=== PATIENT | female | born 1955 | race African-American/Black ===

== ENCOUNTER → 2016-08-09 | Outpatient (CLI) | payer BC, MEDICARE ==
[2015-05-29 11:16] VITALS: BP 150/57
[~2016-08-09] MED LIST: AMLO10TA4 PO; ATOR40TA59 PO; CALC0.5C PO; CLON0.2T PO; FOLI0.8T21 PO; GLYB2.5T2 PO; LISI40TA PO; METO-269 PO; OXYC-327 PO; OXYC-328 PO; SENN1TAB70 PO; SITA50TA PO; SODI650T PO; WARF5TAB7 PO
--- NOTE | 2016-08-09 14:21 | KCIC ---
HIP RIGHT 2 VIEW, HIP LEFT 2 VIEW History: Chronic left hip pain, chronic right hip pain Comparison: None. Findings: Right hip: 2 views of the right hip are submitted. No acute fracture or dislocation is identified. Femoral head morphology is preserved. Hip joint space is adequate. There is vascular calcification. There is mild osteophyte formation of the acetabulum. Left hip: 2 views of the left hip are submitted. No acute fracture or dislocation is identified. Left femoral head morphology is preserved. Left hip joint space is adequate. There is vascular calcification. Impression: 1. There is mild osteoarthritic change of the right hip. No acute fracture is identified. 2. There is prominent vascular calcification. Electronically signed by: Saul Bajwa MD (08/09/2016 2:18 PM)
== END | disposition home or self-care (01) ==
LOC: KCIC 09:54
PROVIDERS: ATTEND Family Medicine
DX: M16.11 Unilateral primary osteoarthritis, right hip (principal); M25.552 Pain in left hip
CPT/HCPCS: 73502

== ENCOUNTER 2016-08-20 23:27 | Emergency (ER) | payer BC, MEDICARE ==
[~2016-08-20] VITALS: Ht 162.6 cm; Wt 131.5 kg
[2016-08-20 23:36] VITALS: BP 165/80
[2016-08-21] MEDS ORDERED: CYCL5TAB PO (00:03)
--- NOTE | 2016-08-21 00:03 | PHYS DOC ---
Past Medical History Past Medical History: Diabetes-Type II, High Cholesterol, Hypertension, Renal Disease, Renal Failure, Other Additional Past Medical Histor: HYPOGLYCEMIA Past Surgical History: Other Additional Past Surgical Histo: peritoneal diaylsis; hemodialysis in left upper arm Alcohol Use: Rarely Drug Use: None Adult General Chief Complaint Chief Complaint: MUSCLE SPASM/CRAMP HPI HPI Patient is a 61 year old female presents to the emergency department stating that 2 days ago she woke up with left-sided neck pain and discomfort. She states that she has having increased pain with trying to turn her head to either direction left or right or up or down. Patient denies any lightheadedness dizziness she denies any chest pain or shortness of air. She denies any other muscle cramps or discomfort. Patient does state she is a dialysis patient. She states she did have dialysis today in which she went the entire time. Review of Systems Review of Systems Constitutional: Denies fever or chills [] Eyes: Denies change in visual acuity, redness, or eye pain [] HENT: Denies nasal congestion or sore throat [] Respiratory: Denies cough or shortness of breath [] Cardiovascular: No additional information not addressed in HPI [] GI: Denies abdominal pain, nausea, vomiting, bloody stools or diarrhea [] : Denies dysuria or hematuria [] Musculoskeletal: Complaining of left neck pain and upper back pain denies joint pain Integument: Denies rash or skin lesions [] Neurologic: Denies headache, focal weakness or sensory changes [] Endocrine: Denies polyuria or polydipsia [] Allergies Allergies Allergies Coded Allergies Type Severity Reaction Last Updated Verified Iodine and Iodide Containing Produc Allergy Severe swells up & itches 05/29/15 Yes shellfish derived Allergy Intermediate "SEAFOOD" 05/29/15 Yes Physical Exam Physical Exam Constitutional: Well developed, well nourished, no acute distress, non-toxic appearance. [] HENT: Normocephalic, atraumatic, bilateral external ears normal, oropharynx moist, no oral exudates, nose normal. [] Eyes: PERRLA, EOMI, conjunctiva normal, no discharge. [] Neck: Normal range of motion, no tenderness, supple, no stridor. [] Cardiovascular:Heart rate regular rhythm, no murmur [] Lungs & Thorax: Bilateral breath sounds clear to auscultation [] Skin: Warm, dry, no erythema, no rash. [] Back: No cervical spine tenderness, no crepitus no deformities no step-offs noted. Patient was tender on the left side of the neck and left upper back area of the shoulder area. Extremities: No tenderness, no cyanosis, no clubbing, ROM intact, no edema. Bilateral upper extremities with equal strength in vp customer development noted. Bilateral pulses equal 2+ cap refill. Patient with decreased range of motion of the neck. Neurologic: Alert and oriented X 3, normal motor function, normal sensory function, no focal deficits noted. [] Psychologic: Affect normal, judgement normal, mood normal. [] Current Patient Data Vital Signs Vital Signs Date Time Temp Pulse Resp B/P (MAP) Pulse Ox O2 Delivery O2 Flow Rate FiO2 08/20/16 23:36 98.2 69 18 96 Room Air 98.2 EKG EKG [] Radiology/Procedures Radiology/Procedures [] Course & Med Decision Making Course & Med Decision Making Pertinent Labs and Imaging studies reviewed. (See chart for details) Patient will be discharged home with Flexeril which she was instructed will cause drowsiness do not take any be alert and oriented. Patient was also encouraged to use Tylenol for pain and discomfort. Ice packs on 20 minutes off 20 minutes several times a day. If she is unable to tolerate ice she may use warm moist packs. Patient was provided with signs and symptoms to return back to emergency department. Patient agrees with discharge instructions treatment regimens and follow-up recommendations. [] Dragon Disclaimer Dragon Disclaimer This electronic medical record was generated, in whole or in part, using a voice recognition dictation system. Departure Departure Impression: Primary Impression: Torticollis, acute Disposition: 01 HOME, SELF-CARE Condition: STABLE Referrals: YAIMA HIGHTOWER MD (PCP) Patient Instructions: Torticollis, Acute Additional Instructions: Activity as tolerated Continue with her Tylenol for pain and discomfort. Flexeril for muscle spasms this medication will cause drowsiness do not take any be alert and oriented. Ice packs on 20 minutes off 20 minutes several times a day. If he cannot tolerate ice to your upper back and neck area he may use warm moist heat. Follow-up to primary care physician next 5-7 days. Return back to emergency prior signs symptoms of become worse. Scripts Cyclobenzaprine Hcl (CYCLOBENZAPRINE HCL) 5 Mg Tablet 1 TAB PO TID Y for MUSCLE SPASMS, #30 TAB Prov: FIDE LEMON APRN 08/21/16 FIDE LEMON APRN Aug 21, 2016 00:03
[2016-08-21] MEDS ORDERED: CYCLOBENZAPRINE 10 MG TABLET. PO ONE (00:30)
== END 2016-08-21 00:40 | disposition home or self-care (01) ==
LOC: ER 23:27
DX: M43.6 Torticollis (principal); E78.00 Pure hypercholesterolemia, unspecified; I12.9 Hypertensive chronic kidney disease with stage 1 through stage 4 chronic kidney disease, or unspecified chronic kidney disease; E11.649 Type 2 diabetes mellitus with hypoglycemia without coma; E11.22 Type 2 diabetes mellitus with diabetic chronic kidney disease; N18.9 Chronic kidney disease, unspecified; Z79.4 Long term (current) use of insulin
CPT/HCPCS: 99283

== ENCOUNTER → 2017-04-04 | Outpatient (CLI) | payer BC | END | disposition home or self-care (01) | LOC: KCIC MRI 13:43 | DX: M47.896 Other spondylosis, lumbar region (principal); M48.061 Spinal stenosis, lumbar region without neurogenic claudication; M48.07 Spinal stenosis, lumbosacral region; R60.0 Localized edema | CPT/HCPCS: 72148 ==

== ENCOUNTER → 2017-05-02 | Outpatient (CLI) | payer SELFPAY, BC | END | disposition home or self-care (01) | LOC: PNCL 08:59 | DX: M17.0 Bilateral primary osteoarthritis of knee (principal); I10 Essential (primary) hypertension; E11.9 Type 2 diabetes mellitus without complications; E78.00 Pure hypercholesterolemia, unspecified | CPT/HCPCS: 99213 ==

== ENCOUNTER → 2017-06-04 | Outpatient (CLI) | payer BC ==
[~2017-06-04] MED LIST changes: -AMLO10TA4 PO; -ATOR40TA59 PO; -CALC0.5C PO; -CLON0.2T PO; -FOLI0.8T21 PO; -GLYB2.5T2 PO; +IOHEXOL 180 MG/ML 10 ML VIAL.; -LISI40TA PO; -METO-269 PO; -OXYC-327 PO; -OXYC-328 PO; -SENN1TAB70 PO; -SITA50TA PO; -SODI650T PO; -WARF5TAB7 PO; +methylPREDNISolone ACETATE 40 MG/ML VIAL.; +methylPREDNISolone ACETATE 80 MG/ML VIAL.
== END | disposition home or self-care (01) ==
LOC: PNCL 10:05
DX: M51.16 Intervertebral disc disorders with radiculopathy, lumbar region (principal)
CPT/HCPCS: 62323; J1030; J1040; Q9965

== ENCOUNTER → 2017-06-18 | Outpatient (CLI) | payer BC | END | disposition home or self-care (01) | LOC: PNCL 10:14 | DX: M51.16 Intervertebral disc disorders with radiculopathy, lumbar region (principal) | CPT/HCPCS: 99212 ==

== ENCOUNTER → 2017-07-02 | Outpatient (CLI) | payer BC ==
[~2017-07-02] MED LIST changes: -methylPREDNISolone ACETATE 80 MG/ML VIAL.
== END ==
LOC: PNCL 08:59
DX: M51.16 Intervertebral disc disorders with radiculopathy, lumbar region (principal)
CPT/HCPCS: 62323; J1030; Q9965

== ENCOUNTER → 2017-07-14 | Outpatient (CLI) | payer BC | END | disposition home or self-care (01) | LOC: PNCL 10:08 | DX: M51.16 Intervertebral disc disorders with radiculopathy, lumbar region (principal); I12.0 Hypertensive chronic kidney disease with stage 5 chronic kidney disease or end stage renal disease; E11.22 Type 2 diabetes mellitus with diabetic chronic kidney disease; N18.5 Chronic kidney disease, stage 5 | CPT/HCPCS: 99212 ==

== ENCOUNTER → 2017-09-08 | Outpatient (CLI) | payer BC ==
[~2017-09-08] MED LIST changes: -IOHEXOL 180 MG/ML 10 ML VIAL.; +LIDOCAINE 1% PF 2 ML VIAL.; +methylPREDNISolone ACETATE 80 MG/ML VIAL.
== END | disposition home or self-care (01) ==
LOC: PNCL 10:00
DX: M51.16 Intervertebral disc disorders with radiculopathy, lumbar region (principal); I12.0 Hypertensive chronic kidney disease with stage 5 chronic kidney disease or end stage renal disease; E11.22 Type 2 diabetes mellitus with diabetic chronic kidney disease; N18.6 End stage renal disease; Z79.01 Long term (current) use of anticoagulants; E78.00 Pure hypercholesterolemia, unspecified; Z86.718 Personal history of other venous thrombosis and embolism; Z86.711 Personal history of pulmonary embolism; E66.9 Obesity, unspecified; Z99.2 Dependence on renal dialysis; M19.90 Unspecified osteoarthritis, unspecified site; F17.200 Nicotine dependence, unspecified, uncomplicated; Z80.0 Family history of malignant neoplasm of digestive organs; Z91.013 Allergy to seafood; Z88.8 Allergy status to other drugs, medicaments and biological substances; Z98.890 Other specified postprocedural states; Z79.84 Long term (current) use of oral hypoglycemic drugs
CPT/HCPCS: 62323; J1030; J1040

== ENCOUNTER → 2017-11-07 | Outpatient (CLI) | payer BC ==
[~2017-11-07] MED LIST changes: +AMLO10TA4 PO; +ATOR40TA59 PO; +CALC0.5C8 PO; +CLON0.2T PO; +CYCL5TAB PO; +FOLI0.8T21 PO; +GLYB2.5T2 PO; +HYDR-2758 PO; -LIDOCAINE 1% PF 2 ML VIAL.; +LIDOCAINE 2% PF 2ML VIAL. ONE; +LINA5TAB4 PO; +LISI-130 PO; +METO-269 PO; +OXYC-327 PO; +OXYC-328 PO; +SENN1TAB70 PO; +SITA50TA PO; +SODI650T PO; +WARF-31 PO; -methylPREDNISolone ACETATE 40 MG/ML VIAL.; +methylPREDNISolone ACETATE 40 MG/ML VIAL. ONE; -methylPREDNISolone ACETATE 80 MG/ML VIAL.; +methylPREDNISolone ACETATE 80 MG/ML VIAL. ONE
--- NOTE | 2017-11-07 12:32 | PAIN ---
DATE OF SERVICE: 11/07/2017 DIAGNOSES: Lumbar radiculopathy with lumbar degenerative disk disease. HISTORY OF PRESENT ILLNESS: The patient is a 62-year-old female who returns for followup status post lumbar epidural steroid injection, most recently 09/08/2017. The patient did very well with this with about a 70-75% improvement in the low back and right lower extremity pain. The patient reports she is having some pain in the left side now and in the low back as well with some burning and tingling sensation to dull aching pain in the low back. The patient reports it is radiating to the lower extremities, slightly more noticeable on the left side, mostly posterolateral thigh, lateral anterior thigh, but also on the right. The patient reports it is a 9 on a scale of 10 at its worse, 8 on average, 7 at its least, described as tingling, burning, shooting, aching, radiating to the lower extremities as noted. The patient reports no loss of motor function, no new bowel or bladder incontinence or other complaints. She has been sleeping well at night, does not awaken her from sleep very often, but over the last few days it has. The patient reports no new changes. No new complaints. PHYSICAL EXAMINATION: VITAL SIGNS: Today, the patient's blood pressure is 125/14, pulse 71, respirations 18, temperature 98.7 degrees Fahrenheit, weight is 293 pounds. GENERAL: She is awake, alert, oriented, appropriate, very pleasant demeanor. HEENT: Head shows normocephalic, atraumatic. Extraocular movements are intact, symmetrical. Oral cavity: Mucous membranes moist and pink. Dentition intact. NECK: Shows anterior throat supple without palpable lymphadenopathy noted. Swallow reflex is symmetrical. CHEST: Shows normal with inspection. Breath sounds are clear to auscultation bilaterally. HEART: Shows S1, S2 clear. No murmurs auscultated. ABDOMEN: Soft, nontender, nondistended. No palpable organomegaly. No rebound or guarding demonstrated. BACK: Shows spine grossly in the midline. Normal appearing thoracic kyphosis and minor flattening of lumbar lordotic curvature. Lumbar paraspinous muscle shows symmetrical on inspection, with palpation shows some moderate tenderness only diffusely without radiation. EXTREMITIES: The patient's lower extremities show deep tendon reflexes at 1+ in the patellar and tendo calcaneus tendons are equal. Motor exam is approximately 4 on a scale of 5, but symmetrical with dorsiflexion, extension, quadriceps and hamstring flexion. Peripheral pulses are 1+ posterior tibia. No peripheral edema is noted bilaterally. Options were discussed with the patient. The patient's old chart was reviewed, as her current medication regimen updated. Current review of systems updated today as well. We will proceed with a lumbar epidural steroid injection, first in this series with fluoroscopic guidance. Risks were again discussed including, but not limited to bleeding, infection, possibility of epidural hematoma, subsequent neurologic compromise, dural puncture, headaches, spinal cord and/or nerve damage, side effects of steroid medication and poor results regarding pain control. The patient understands and wished to proceed. The patient will return to clinic in approximately 2 weeks for followup, was counseled on return appointment, activity level and side effects to be aware of. DIAGNOSES: Lumbar radiculopathy with lumbar degenerative disk disease. PROCEDURE: Lumbar epidural steroid injection, translaminar approach L4-L5 level using C-arm fluoroscopic guidance under sterile prep and drape using local anesthetic. MEDICATION INJECTED: A total of 120 mg Depo-Medrol, plus 10 mL of preservative-free normal saline and 2 mL of Isovue for contrast. CONDITION AT DISCHARGE: Stable. The patient tolerated procedure well, had no complications. TRACEE BHATTI MD DR: SUSAN/prabha JOB#: [id number] / [id number]
== END | disposition home or self-care (01) ==
LOC: PNCL 08:07
PROVIDERS: ATTEND Anesthesiology
DX: M51.16 Intervertebral disc disorders with radiculopathy, lumbar region (principal); Z91.013 Allergy to seafood; Z88.8 Allergy status to other drugs, medicaments and biological substances
CPT/HCPCS: 62323; J1030; J1040; J2001

== ENCOUNTER → 2017-12-10 | Outpatient (CLI) | payer BC ==
[~2017-12-10] MED LIST changes: -LIDOCAINE 2% PF 2ML VIAL. ONE; -methylPREDNISolone ACETATE 40 MG/ML VIAL. ONE; -methylPREDNISolone ACETATE 80 MG/ML VIAL. ONE
== END | disposition home or self-care (01) ==
LOC: PMGWOUND 09:17
PROVIDERS: ATTEND Preventive Medicine Undersea and Hyperbaric Medicine
DX: S81.811A Laceration without foreign body, right lower leg, initial encounter (principal); E78.5 Hyperlipidemia, unspecified; Z79.4 Long term (current) use of insulin; E66.9 Obesity, unspecified; Z68.43 Body mass index [BMI] 50.0-59.9, adult; Z87.891 Personal history of nicotine dependence; X58.XXXA Exposure to other specified factors, initial encounter; Y93.89 Activity, other specified; Y92.89 Other specified places as the place of occurrence of the external cause; Y99.8 Other external cause status
CPT/HCPCS: 97597

== ENCOUNTER → 2017-12-17 | Outpatient (CLI) | payer BC | END | disposition home or self-care (01) | LOC: PMGWOUND 09:46 | PROVIDERS: ATTEND Preventive Medicine Undersea and Hyperbaric Medicine | DX: S81.811D Laceration without foreign body, right lower leg, subsequent encounter (principal); I12.9 Hypertensive chronic kidney disease with stage 1 through stage 4 chronic kidney disease, or unspecified chronic kidney disease; N18.9 Chronic kidney disease, unspecified; E78.5 Hyperlipidemia, unspecified; E66.9 Obesity, unspecified; Z68.43 Body mass index [BMI] 50.0-59.9, adult; Z79.4 Long term (current) use of insulin; Z87.891 Personal history of nicotine dependence; X58.XXXD Exposure to other specified factors, subsequent encounter | CPT/HCPCS: 29581 ==

== ENCOUNTER → 2017-12-19 | Outpatient (CLI) | payer BC | END | disposition home or self-care (01) | LOC: PMGWOUND 09:55 | PROVIDERS: ATTEND Preventive Medicine Undersea and Hyperbaric Medicine | DX: S81.811D Laceration without foreign body, right lower leg, subsequent encounter (principal); I12.0 Hypertensive chronic kidney disease with stage 5 chronic kidney disease or end stage renal disease; N18.6 End stage renal disease; E78.5 Hyperlipidemia, unspecified; E66.9 Obesity, unspecified; Z68.43 Body mass index [BMI] 50.0-59.9, adult; Z79.4 Long term (current) use of insulin; Z87.891 Personal history of nicotine dependence; X58.XXXD Exposure to other specified factors, subsequent encounter | CPT/HCPCS: 29581 ==

== ENCOUNTER → 2017-12-31 | Outpatient (CLI) | payer BC | END | disposition home or self-care (01) | LOC: PMGWOUND 08:05 | PROVIDERS: ATTEND Preventive Medicine Undersea and Hyperbaric Medicine | DX: S81.811D Laceration without foreign body, right lower leg, subsequent encounter (principal); E11.51 Type 2 diabetes mellitus with diabetic peripheral angiopathy without gangrene; I13.10 Hypertensive heart and chronic kidney disease without heart failure, with stage 1 through stage 4 chronic kidney disease, or unspecified chronic kidney disease; E11.22 Type 2 diabetes mellitus with diabetic chronic kidney disease; N18.9 Chronic kidney disease, unspecified; E78.5 Hyperlipidemia, unspecified; E66.9 Obesity, unspecified; Z68.43 Body mass index [BMI] 50.0-59.9, adult; Z79.4 Long term (current) use of insulin; Z87.891 Personal history of nicotine dependence; X58.XXXD Exposure to other specified factors, subsequent encounter | CPT/HCPCS: 11100; 93923 ==

== ENCOUNTER → 2018-01-06 | Outpatient (CLI) | payer BC | END | disposition home or self-care (01) | LOC: PMGWOUND 13:14 | PROVIDERS: ATTEND Emergency Medicine Undersea and Hyperbaric Medicine | DX: E11.622 Type 2 diabetes mellitus with other skin ulcer (principal); I87.331 Chronic venous hypertension (idiopathic) with ulcer and inflammation of right lower extremity; L97.212 Non-pressure chronic ulcer of right calf with fat layer exposed; E11.51 Type 2 diabetes mellitus with diabetic peripheral angiopathy without gangrene; I12.0 Hypertensive chronic kidney disease with stage 5 chronic kidney disease or end stage renal disease; E11.22 Type 2 diabetes mellitus with diabetic chronic kidney disease; N18.6 End stage renal disease; E78.5 Hyperlipidemia, unspecified; E66.9 Obesity, unspecified; Z68.43 Body mass index [BMI] 50.0-59.9, adult; Z87.891 Personal history of nicotine dependence; Z79.4 Long term (current) use of insulin | CPT/HCPCS: 99214; G0463 ==

== ENCOUNTER → 2018-01-09 | Outpatient (CLI) | payer BC ==
--- NOTE | 2018-01-09 12:30 | CARD ---
MR#: [id number] Date of Study: 01/09/2018 Ordering Physician: CHERI HERNANDEZ, Referring Physician: CHERI HERNANDEZ, Tech: Juliana Cline TRINA APPROVED REPORT EXAM: Two-dimensional and M-mode echocardiogram with Doppler and color Doppler. Other Information Quality : Technically LimitedHR: 84bpm Rhythm : NSRTechnically limited study due to body habitus. INDICATION Murmur 2D DIMENSIONS RVDd2.1 (2.9-3.5cm)Left Atrium(2D)3.8 (1.6-4.0cm) IVSd1.3 (0.7-1.1cm)Aortic Root(2D)2.8 (2.0-3.7cm) LVDd5.3 (3.9-5.9cm)LVOT Diameter1.8 (1.8-2.4cm) PWd1.2 (0.7-1.1cm)LVDs3.4 (2.5-4.0cm) FS (%) 35.3 %SV87.9 ml LVEF(%)64.2 (>50%) M-Mode DIMENSIONS Left Atrium(MM)4.39 (2.5-4.0cm)Aortic Root3.02 (2.2-3.7cm) Aortic Valve AoV Peak Everardo.394.0cm/sAoV VEY903.6cm AO Peak GR.62.1mmHgLVOT Peak Everardo.87.2cm/s AO Mean GR.45mmHgAVA (VMAX)0.54cm2 ISIDRO (VTI)0.03ck3JB P 1/2 Budl009mq Mitral Valve MV E Rpcqynuy834.2cm/sMV E Peak Gr.7mmHg MV DECEL [id number] A Niamlkfl522.0cm/s MV E Mean Gr.2mmHgE/A Ratio0.8 MV A Kghbvfew09qb Pulmonary Valve PV Peak Qipprkys232.3cm/s Tricuspid Valve TR P. Ursuxsjp613gw/sRAP XZPZCWAZ5evAf TR Peak Gr.20ezBhQJCY16bzNr LEFT VENTRICLE The left ventricle is normal size. There is mild concentric left ventricular hypertrophy. The left ve ntricular systolic function is normal. The Ejection Fraction is 60-65%. There is normal LV segmental wall motion. Transmitral Doppler flow pattern is Grade I-abnormal relaxation pattern. RIGHT VENTRICLE The right ventricle is normal size. There is normal right ventricular wall thickness. The right ventr icular systolic function is normal. ATRIA The left atrium is mildly dilated. The right atrium size is normal. The interatrial septum is intact with no evidence for an atrial septal defect or patent foramen ovale as noted on 2-D or Doppler imagi ng. AORTIC VALVE The aortic valve is severely calcified. The aortic valve is probably trileaflet. Doppler and Color Fl ow revealed trace aortic regurgitation. There is severe valvular aortic stenosis. Calculated aortic v alve area is 0.6 cm2 with maximum pressure gradient of 62 mmHg and mean pressure gradient of 45 mmHg. MITRAL VALVE The mitral valve is moderately thickened. There is no evidence of mitral valve prolapse. There is no mitral valve stenosis. Doppler and Color Flow revealed no mitral valve regurgitation noted. TRICUSPID VALVE The tricuspid valve is normal in structure and function. Doppler and Color Flow revealed mild tricusp id regurgitation. There is moderate pulmonary hypertension. The PA pressure was estimated at 55 mmHg. There is no tricuspid valve prolapse or vegetation. There is no tricuspid valve stenosis. PULMONIC VALVE Pulmonic valve not well visualized. GREAT VESSELS The aortic root is normal in size. The ascending aorta is normal in size. PERICARDIAL EFFUSION There is a trace pericardial effusion. Critical Notification Critical Value: No <Conclusion> The left ventricular systolic function is normal. The Ejection Fraction is 60-65%. There is normal LV segmental wall motion. Transmitral Doppler flow pattern is Grade I-abnormal relaxation pattern. The left atrium is mildly dilated. There is severe valvular aortic stenosis with calculated aortic valve area is 0.6 cm2 and mean pressu re gradient of 45 mmHg. Mild tricuspid regurgitation. There is moderate pulmonary hypertension. The PA pressure was estimated at 55 mmHg. There is a trace pericardial effusion. Signed by : Barrett Miguel, Electronically Approved : 01/09/2018 12:29:25
--- NOTE | 2018-01-12 08:58 | RAD ---
MR#: [id number] Date of Study: 01/09/2018 Ordering Physician: CHERI HERNANDEZ, Referring Physician: CHERI HERNANDEZ, Tech: Juliana Handley RDMS RVT APPROVED REPORT Patient Location: OUT-PATIENT Laterality:Bilateral Indications MURMUR Doppler Spectral Velocity Analysis Right Left mCCA 54/10 cm/smCCA 69/14 cm/s ECA 101/ cm/sECA 58/ cm/s pICA pICA 75/23 cm/s [place] 523/130 cm/smICA 89/26 cm/s dICA 282/35 cm/sdICA 85/21 cm/s ICA/CCA 9.69ICA/CCA 1.30 Findings Grayscale images of the bilateral common carotid, internal and external carotid arteries were obtaine d. There is moderate diffuse plaque bilaterally in the common carotid arteries. On the right there is near critical stenosis of the internal carotid artery at greater than 95% steno sis. There is heavy calcific burden and ultrasound imaging is limited. Nonetheless, by velocity crite mallory there is greater than 70% stenosis. Spectral waveforms in the left internal carotid artery are wi thin normal limits. Normal ICA to CCA ratio is noted on the left side. The ICA to CCA ratio is signif icantly elevated at 9.6 on the right side. Bilateral vertebral velocities are antegrade. Critical Notification Critical Value: Yes Date: 01/09/2018 Time: 11:21 Physician Name:ASAF <Conclusion> 1. Critical right internal carotid artery stenosis. Signed by : Tacho Pedersen, Electronically Approved : 01/12/2018 08:57:40
== END | disposition home or self-care (01) ==
LOC: ECHO 10:02
PROVIDERS: ATTEND Internal Medicine Cardiovascular Disease
DX: I65.21 Occlusion and stenosis of right carotid artery (principal); I08.2 Rheumatic disorders of both aortic and tricuspid valves; I27.20 Pulmonary hypertension, unspecified
CPT/HCPCS: 93306; 93880

== ENCOUNTER → 2018-01-13 | Outpatient (CLI) | payer BC ==
[~2018-01-13] MED LIST changes: +BUDE10.2 IH; +GLIP5TAB10 PO; +SEVE800T9 PO; +SUCR500T PO
== END | disposition home or self-care (01) ==
LOC: PMGWOUND 10:42
PROVIDERS: ATTEND Emergency Medicine Undersea and Hyperbaric Medicine
DX: E11.622 Type 2 diabetes mellitus with other skin ulcer (principal); I87.331 Chronic venous hypertension (idiopathic) with ulcer and inflammation of right lower extremity; L97.212 Non-pressure chronic ulcer of right calf with fat layer exposed; E11.51 Type 2 diabetes mellitus with diabetic peripheral angiopathy without gangrene; I12.0 Hypertensive chronic kidney disease with stage 5 chronic kidney disease or end stage renal disease; E11.22 Type 2 diabetes mellitus with diabetic chronic kidney disease; N18.6 End stage renal disease; E78.5 Hyperlipidemia, unspecified; E66.01 Morbid (severe) obesity due to excess calories; Z68.43 Body mass index [BMI] 50.0-59.9, adult; Z87.891 Personal history of nicotine dependence; Z99.2 Dependence on renal dialysis; Z79.4 Long term (current) use of insulin
CPT/HCPCS: 99214; G0463

== ENCOUNTER 2018-01-19 07:52 | Day surgery (SDC) | payer BC ==
[~2018-01-19 07:52] MED LIST changes: -HYDR-2758 PO; +HYDR-2761 PO; +HYDROmorphone 2 MG/ML VIAL IV PRN; +IV RINGERS,LACTATED 1000ML 1,000 ML IV SCH; +LIDOCAINE 1% PF 2 ML VIAL. ID PRN; +MORPHINE SULFATE 2 MG/ML VIAL. IV PRN; +ONDANSETRON PF 4 MG/2 ML VIAL. IV PRN; -OXYC-327 PO; -OXYC-328 PO; +OXYC1TAB19 PO; +OXYC1TAB22 PO; +PROCHLORPERAZINE 10 MG/2 ML VIAL. IV PRN; +fentaNYL PF VIAL 100 MCG/2 ML VIAL IV PRN
[2018-01-19] MEDS ORDERED: IV NORMAL SALINE 1000ML BAG 1,000 ML IV SCH (08:37)
[2018-01-19] MEDS ORDERED: PROPOFOL 20 ML IV ONE (09:09)
[2018-01-19] MEDS ORDERED: BENZOCAINE ONE 20% MUCOSAL SPRAY. (09:10)
[2018-01-19] MEDS ORDERED: LIDOCAINE 2% VISCOUS 15 ML SOLUTION. ONE (09:11)
[2018-01-19 10:45] VITALS: BP 148/80
--- NOTE | 2018-01-19 14:50 | CARD ---
MR#: [id number] Date of Study: 01/19/2018 Ordering Physician: CHERI SOLOMON, Referring Physician: Julien HENRIQUEZ: Charlene Rea APPROVED REPORT EXAM: Transesophageal echocardiogram with color flow Doppler. INDICATION Aortic Valve Disease RISK FACTORS Hypertension Hyperlipidemia Diabetes Reason For Test : Rule out Intracardiac Thrombus. PROCEDURE Type of Sedation : General Anesthesia Sedation was administered by Dr. Cooper. Sedation was achieved with Propofol 150mg intravenously. Transesophageal probe was inserted and advanced into esophagus by Cheri Solomon MD. The NICHELLE was performed without complications. Throughout the procedure, the blood pressure, pulse oximetry, cardiac rhythm, and rate were monitored . LEFT VENTRICLE The left ventricle is normal size. There is mild to moderate concentric left ventricular hypertrophy. The left ventricular systolic function is normal and the ejection fraction is within normal range. L eft ventricular ejection fraction is 55-60%. There is normal LV segmental wall motion. RIGHT VENTRICLE The right ventricle is normal size. There is normal right ventricular wall thickness. The right ventr icular systolic function is normal. ATRIA The left atrium is borderline dilated. The right atrium size is normal. The interatrial septum is int act with no evidence for an atrial septal defect or patent foramen ovale as noted on 2-D or Doppler i maging. AORTIC VALVE The aortic valve is severely calcified. Doppler and Color Flow revealed mild aortic regurgitation. Th ere is severe valvular aortic stenosis. There is no aortic valvular vegetation. MITRAL VALVE The mitral valve is normal in structure and function. Doppler and Color-flow revealed mild mitral reg urgitation. TRICUSPID VALVE The tricuspid valve is normal in structure and function. Doppler and Color Flow revealed trace tricus pid valve regurgitation. There is no tricuspid valve stenosis. PULMONIC VALVE The pulmonary valve is normal in structure and function. Doppler and Color Flow revealed no pulmonic valvular regurgitation. There is no pulmonic valvular stenosis. GREAT VESSELS The aortic root is normal in size. Critical Notification Critical Value: No <Conclusion> The left ventricle is normal size. The left ventricular systolic function is normal and the ejection fraction is within normal range. Left ventricular ejection fraction is 55-60%. There is mild to moderate concentric left ventricular hypertrophy. The aortic valve is severely calcified. There is severe valvular aortic stenosis. Doppler and Color Flow revealed mild aortic regurgitation. Doppler and Color-flow revealed mild mitral regurgitation. Doppler and Color Flow revealed trace tricuspid valve regurgitation. Signed by : Cheri Solomon MD Electronically Approved : 01/19/2018 14:49:11
== END 2018-01-19 10:45 | disposition home or self-care (01) ==
LOC: SURG 07:52
PROVIDERS: ATTEND Internal Medicine Cardiovascular Disease
DX: I08.3 Combined rheumatic disorders of mitral, aortic and tricuspid valves (principal); I12.9 Hypertensive chronic kidney disease with stage 1 through stage 4 chronic kidney disease, or unspecified chronic kidney disease; E11.22 Type 2 diabetes mellitus with diabetic chronic kidney disease; N18.9 Chronic kidney disease, unspecified; E78.5 Hyperlipidemia, unspecified; J44.9 Chronic obstructive pulmonary disease, unspecified; E66.01 Morbid (severe) obesity due to excess calories; Z68.43 Body mass index [BMI] 50.0-59.9, adult; Z79.84 Long term (current) use of oral hypoglycemic drugs; Z79.899 Other long term (current) drug therapy; Z88.8 Allergy status to other drugs, medicaments and biological substances; Z91.013 Allergy to seafood; Z98.890 Other specified postprocedural states; Z83.3 Family history of diabetes mellitus; Z82.49 Family history of ischemic heart disease and other diseases of the circulatory system; Z87.891 Personal history of nicotine dependence
CPT/HCPCS: 82962; 93312; 93325; A7015; J2704

== ENCOUNTER → 2018-01-20 | Outpatient (CLI) | payer BC ==
[2016-08-20 23:36] VITALS: BP_DIAS 80
[2018-01-19 10:45] VITALS: BP_SYST 148
[~2018-01-20] MED LIST changes: -HYDROmorphone 2 MG/ML VIAL IV PRN; -IV RINGERS,LACTATED 1000ML 1,000 ML IV SCH; -LIDOCAINE 1% PF 2 ML VIAL. ID PRN; -MORPHINE SULFATE 2 MG/ML VIAL. IV PRN; -ONDANSETRON PF 4 MG/2 ML VIAL. IV PRN; -PROCHLORPERAZINE 10 MG/2 ML VIAL. IV PRN; -fentaNYL PF VIAL 100 MCG/2 ML VIAL IV PRN
--- NOTE | 2018-01-20 16:09 | RAD ---
Right lower extremity arterial ultrasound, 01/20/2018: HISTORY: Right ankle wound, nonhealing Duplex evaluation of the major arteries in the right lower extremity was performed including grayscale, color-flow and spectral Doppler analysis. The right common femoral artery demonstrates a triphasic Doppler waveform. There are mild scattered atherosclerotic plaques. The right superficial femoral and popliteal arteries demonstrate biphasic Doppler waveforms. No significant focal velocity acceleration is seen through those regions to suggest high-grade focal stenosis. Patent anterior tibial, posterior tibial and peroneal arteries are present in the right lower leg demonstrating biphasic Doppler waveforms. The right dorsalis pedis artery demonstrates a similar, good amplitude biphasic Doppler waveform. IMPRESSION: Mild scattered atherosclerotic plaquing without duplex evidence of high-grade arterial stenosis. Electronically signed by: Carlton Parsons MD (01/20/2018 4:05 PM) [facility]
== END | disposition home or self-care (01) ==
LOC: PMGWOUND 13:30
PROVIDERS: ATTEND Emergency Medicine Undersea and Hyperbaric Medicine
DX: E11.622 Type 2 diabetes mellitus with other skin ulcer (principal); L97.212 Non-pressure chronic ulcer of right calf with fat layer exposed; I87.021 Postthrombotic syndrome with inflammation of right lower extremity; E11.51 Type 2 diabetes mellitus with diabetic peripheral angiopathy without gangrene; I12.0 Hypertensive chronic kidney disease with stage 5 chronic kidney disease or end stage renal disease; E11.22 Type 2 diabetes mellitus with diabetic chronic kidney disease; N18.6 End stage renal disease; E78.5 Hyperlipidemia, unspecified; E66.01 Morbid (severe) obesity due to excess calories; Z68.43 Body mass index [BMI] 50.0-59.9, adult; Z99.2 Dependence on renal dialysis; Z79.4 Long term (current) use of insulin; Z87.891 Personal history of nicotine dependence
CPT/HCPCS: 93926; 99214; G0463

== ENCOUNTER → 2018-01-21 | Outpatient (CLI) | payer BC ==
[~2018-01-21] VITALS: Ht 162.6 cm; Wt 136.1 kg
[~2018-01-21] MED LIST changes: +HEPARIN for ARTERIAL LINE 0 ML ONE; +IODIXANOL 320 MG/ML 100 ML VIAL. ONE; +LIDOCAINE 1% PF 30 ML VIAL. ONE
[2018-01-21 07:25] VITALS: BP 158/76
[2018-01-21 07:25] LABS: HEMATOCRIT 28.6 % (36.0-47.0); HEMOGLOBIN 9.3 g/dL (12.0-15.5); RED BLOOD COUNT 3.14 x10^6/uL (3.50-5.40); RED CELL DISTRIBUTION WIDTH 17.1 % (11.5-14.5)
[2018-01-21 07:35] LABS: PROTHROMBIN TIME PATIENT 14.6 SEC (11.7-14.0)
[2018-01-21 07:41] LABS: CALCIUM 9.4 mg/dL (8.5-10.1); CREATININE 11.2 mg/dL (0.6-1.0); GFR 4.2; POTASSIUM 4.5 mmol/L (3.5-5.1)
== END | disposition home or self-care (01) ==
LOC: CCL 06:36
PROVIDERS: ATTEND Internal Medicine Cardiovascular Disease
DX: I35.0 Nonrheumatic aortic (valve) stenosis (principal); Z53.8 Procedure and treatment not carried out for other reasons; Z88.8 Allergy status to other drugs, medicaments and biological substances; Z79.01 Long term (current) use of anticoagulants; Z79.899 Other long term (current) drug therapy; Z91.013 Allergy to seafood
CPT/HCPCS: 36415; 80048; 85027; 85610; 85730

== ENCOUNTER → 2018-01-26 | Outpatient (CLI) | payer BC ==
[2018-01-21 07:25] VITALS: BP 158/76
[~2018-01-26] MED LIST changes: +ASPI-630 PO; -HEPARIN for ARTERIAL LINE 0 ML ONE; -IODIXANOL 320 MG/ML 100 ML VIAL. ONE; -LIDOCAINE 1% PF 30 ML VIAL. ONE; +LINA5TAB PO; -LINA5TAB4 PO; +LOSA100T14 PO
== END | disposition home or self-care (01) ==
LOC: PMGWOUND 14:00
PROVIDERS: ATTEND Emergency Medicine Undersea and Hyperbaric Medicine
DX: E11.622 Type 2 diabetes mellitus with other skin ulcer (principal); L97.212 Non-pressure chronic ulcer of right calf with fat layer exposed; I87.021 Postthrombotic syndrome with inflammation of right lower extremity; E11.51 Type 2 diabetes mellitus with diabetic peripheral angiopathy without gangrene; I12.0 Hypertensive chronic kidney disease with stage 5 chronic kidney disease or end stage renal disease; E11.22 Type 2 diabetes mellitus with diabetic chronic kidney disease; N18.6 End stage renal disease; E78.5 Hyperlipidemia, unspecified; J44.9 Chronic obstructive pulmonary disease, unspecified; Z99.2 Dependence on renal dialysis; E66.01 Morbid (severe) obesity due to excess calories; Z79.4 Long term (current) use of insulin; Z68.43 Body mass index [BMI] 50.0-59.9, adult; Z87.891 Personal history of nicotine dependence
CPT/HCPCS: 99214; G0463

== ENCOUNTER 2018-01-29 09:02 | Outpatient (CLI) | payer BC ==
[2018-01-29] VITALS (11 sets, daily range): BP systolic 148–207; BP diastolic 61–88
[~2018-01-29] VITALS: Ht 162.6 cm; Wt 134.3 kg
[~2018-01-29 09:02] MED LIST changes: -ASPI-630 PO; -LOSA100T14 PO
[2018-01-29 09:39] LABS: HEMATOCRIT 28.8 % (36.0-47.0); HEMOGLOBIN 9.3 g/dL (12.0-15.5); RED BLOOD COUNT 3.2 x10^6/uL (3.50-5.40); RED CELL DISTRIBUTION WIDTH 16.8 % (11.5-14.5); WHITE BLOOD COUNT 13.6 x10^3/uL (4.0-11.0)
[2018-01-29 09:49] LABS: PROTHROMBIN TIME PATIENT 13.8 SEC (11.7-14.0)
[2018-01-29 09:51] LABS: CALCIUM 9.7 mg/dL (8.5-10.1); CREATININE 5.3 mg/dL (0.6-1.0); GFR 9.9; POTASSIUM 4.3 mmol/L (3.5-5.1)
[2018-01-29] MEDS ORDERED: LIDOCAINE 1% PF 2 ML VIAL. ONE (10:00)
[2018-01-29] MEDS ORDERED: ASPI-630 PO (10:04)
[2018-01-29] MEDS ORDERED: LOSA100T14 PO (10:04)
[2018-01-29] MEDS ORDERED: IODIXANOL 320 MG/ML 100 ML VIAL. ONE (10:27)
[2018-01-29] MEDS ORDERED: FAMOTIDINE 20 MG/2 ML VIAL ONE (10:44)
[2018-01-29] MEDS ORDERED: fentaNYL PF VIAL 100 MCG/2 ML VIAL ONE (10:45)
[2018-01-29] MEDS ORDERED: MIDAZOLAM HCL/PF 2 MG/2 ML VIAL. ONE (10:45)
[2018-01-29] MEDS ORDERED: LABETALOL 20 MG/4 ML DISP.SYRIN. IVP ONE ×3 (10:45→11:15)
[2018-01-29] MEDS ORDERED: diphenhydrAMINE 50 MG/ML VIAL ONE (10:45)
[2018-01-29] MEDS ORDERED: LIDOCAINE 1% Multi-Dose 20 ML VIAL. ONE (10:53)
[2018-01-29] MEDS ORDERED: LIDOCAINE 1% Multi-Dose 20 ML VIAL. INJ ONE (11:15)
[2018-01-29] MEDS ORDERED: fentaNYL PF VIAL 100 MCG/2 ML VIAL IV ONE (11:15)
[2018-01-29] MEDS ORDERED: FAMOTIDINE 20 MG/2 ML VIAL IVP ONE (11:15)
[2018-01-29] MEDS ORDERED: diphenhydrAMINE 50 MG/ML VIAL IVP ONE (11:15)
[2018-01-29] MEDS ORDERED: MIDAZOLAM HCL/PF 2 MG/2 ML VIAL. IV ONE (11:15)
[2018-01-29] MEDS ORDERED: IODIXANOL 320 MG/ML 100 ML VIAL. IART ONE (11:15)
[2018-01-29] MEDS ORDERED: LOSARTAN POTASSIUM 50 MG TABLET. PO ONE (11:45)
[2018-01-29] MEDS ORDERED: amLODIPine BESYLATE 10 MG TABLET PO ONE (11:45)
[2018-01-29] MEDS ORDERED: cloNIDine HCL 0.2 MG TABLET PO ONE (11:45)
--- NOTE | 2018-01-29 11:51 | CARD ---
MR#: [id number] Date of Study: 01/29/2018 Ordering Physician: TALHA RON, Referring Physician: TALHA RON, Tech: RAÚL FERRIS RTR APPROVED REPORT Technologist: RAÚL FERRIS RTR Nurse: JOSIE REYNA RN Procedure(s) performed: MODERATE SEDATION TIME: 25 MINUTES Coronary angiography HISTORY The patient is a 62 year-old female with a history of : renal failure with dialysis. INDICATION The indication(s) include : valvular heart disease. PROCEDURE NARRATIVE After explaining the risks and benefits of the procedure and alternatives, informed consent was obtai benedict. The patient was brought electively to the cardiac catheterization lab in a fasting state. A megan eout was performed confirming the patient's name, date of , procedure, and site of procedure. A ll necessary personnel were wearing the appropriate protective equipment and radiation monitor device s. (See nursing notes for medications administered). The right groin was sterilely prepped and drap ed in the usual fashion. The right groin was infiltrated with 10 mL of 2% lidocaine for subcutaneous anesthesia. A 6 F sheath was inserted into the right femoral artery without difficulty. Right and left coronary angiography was performed using a JR4 and JL4 catheter. All catheter exchanges and adv ancements were performed over a guidewire. At case completion the right femoral sheath was removed a nd hemostasis was achieved with an Angioseal Device after limited femoral angiography confirmed adequ ate vessel size and anatomy. There were no acute complications. HEMODYNAMICS: AO: 180/90 CORONARY ANGIOGRAPHY: LM is a large caliber vessel with normal angiographic appearance. LAD is a large caliber vessel with adventitial calcification and apical occlusion. The LAD is hyperdo minant and wraps around the apex and the apical/inferoapical segment is seen to fill via right to lef t collaterals. LCx is a moderate caliber non-dominant vessel with mild luminal irregularities. OM1 is a moderate caliber vessel with mild luminal irregularities. RCA is a small caliber dominant vessel with a mid 50% stenosis. Conclusion 1. Two vessel coronary artery disease in non-bypassable segments. Recommendations Aggressive Medical Therapy Signed by : Talha Ron, Electronically Approved : 01/29/2018 11:50:28
== END 2018-01-29 15:00 | disposition home or self-care (01) ==
LOC: CCL 09:02
PROVIDERS: ATTEND Internal Medicine Cardiovascular Disease
DX: I25.10 Atherosclerotic heart disease of native coronary artery without angina pectoris (principal); I25.82 Chronic total occlusion of coronary artery; I12.9 Hypertensive chronic kidney disease with stage 1 through stage 4 chronic kidney disease, or unspecified chronic kidney disease; E11.22 Type 2 diabetes mellitus with diabetic chronic kidney disease; N18.9 Chronic kidney disease, unspecified; E78.5 Hyperlipidemia, unspecified; J44.9 Chronic obstructive pulmonary disease, unspecified; E66.01 Morbid (severe) obesity due to excess calories; Z68.43 Body mass index [BMI] 50.0-59.9, adult; Z91.013 Allergy to seafood; Z88.8 Allergy status to other drugs, medicaments and biological substances; Z79.899 Other long term (current) drug therapy; Z98.890 Other specified postprocedural states; Z82.49 Family history of ischemic heart disease and other diseases of the circulatory system; Z83.3 Family history of diabetes mellitus; Z87.891 Personal history of nicotine dependence; I35.0 Nonrheumatic aortic (valve) stenosis; Z99.2 Dependence on renal dialysis; Z79.84 Long term (current) use of oral hypoglycemic drugs
CPT/HCPCS: 36415; 80048; 85027; 85610; 93454; 99152; 99153; C1769; C1892; J1200; J1644; J2250; J3010; J3490; Q9967; C1771; G0269

== ENCOUNTER → 2018-02-02 | Outpatient (CLI) | payer BC ==
[2018-01-29 14:20] VITALS: BP 148/61
[~2018-02-02] MED LIST changes: +ASPI-630 PO; +LOSA100T14 PO
== END | disposition home or self-care (01) ==
LOC: PMGWOUND 13:21
PROVIDERS: ATTEND Emergency Medicine Undersea and Hyperbaric Medicine
DX: E11.622 Type 2 diabetes mellitus with other skin ulcer (principal); L97.212 Non-pressure chronic ulcer of right calf with fat layer exposed; I87.021 Postthrombotic syndrome with inflammation of right lower extremity; I12.0 Hypertensive chronic kidney disease with stage 5 chronic kidney disease or end stage renal disease; E11.22 Type 2 diabetes mellitus with diabetic chronic kidney disease; N18.5 Chronic kidney disease, stage 5; E11.51 Type 2 diabetes mellitus with diabetic peripheral angiopathy without gangrene; E78.5 Hyperlipidemia, unspecified; J44.9 Chronic obstructive pulmonary disease, unspecified; I25.10 Atherosclerotic heart disease of native coronary artery without angina pectoris; E66.01 Morbid (severe) obesity due to excess calories; Z79.4 Long term (current) use of insulin; Z68.43 Body mass index [BMI] 50.0-59.9, adult; Z99.2 Dependence on renal dialysis; Z87.891 Personal history of nicotine dependence
CPT/HCPCS: 99214; G0463

== ENCOUNTER → 2018-02-09 | Outpatient (CLI) | payer BC ==
[2018-01-29 14:20] VITALS: BP 148/61
== END | disposition home or self-care (01) ==
LOC: PMGWOUND 13:22
PROVIDERS: ATTEND Emergency Medicine Undersea and Hyperbaric Medicine
DX: E11.622 Type 2 diabetes mellitus with other skin ulcer (principal); L97.212 Non-pressure chronic ulcer of right calf with fat layer exposed; I87.021 Postthrombotic syndrome with inflammation of right lower extremity; E11.51 Type 2 diabetes mellitus with diabetic peripheral angiopathy without gangrene; I13.11 Hypertensive heart and chronic kidney disease without heart failure, with stage 5 chronic kidney disease, or end stage renal disease; N18.6 End stage renal disease; E11.22 Type 2 diabetes mellitus with diabetic chronic kidney disease; E78.5 Hyperlipidemia, unspecified; J44.9 Chronic obstructive pulmonary disease, unspecified; I25.10 Atherosclerotic heart disease of native coronary artery without angina pectoris; E66.01 Morbid (severe) obesity due to excess calories; Z68.43 Body mass index [BMI] 50.0-59.9, adult; Z87.891 Personal history of nicotine dependence; Z79.4 Long term (current) use of insulin; Z99.2 Dependence on renal dialysis
CPT/HCPCS: 97597

== ENCOUNTER → 2018-02-23 | Outpatient (CLI) | payer BC ==
[2018-01-29 14:20] VITALS: BP_DIAS 61
[2018-02-18 11:00] VITALS: BP_SYST 124
[~2018-02-23] VITALS: Ht 167.6 cm; Wt 134.3 kg
--- NOTE | 2018-02-25 15:15 | RAD ---
DATE: 02/23/2018 11:45 AM EXAM: DIGITAL DIAGNOSTIC BILATERAL, BREAST LEFT HISTORY: imaging evaluation of a palpable area of concern within the left breast COMPARISON: None available Bilateral CC and MLO views of the breasts were performed. Bilateral breast tomosynthesis was performed in CC and MLO projections. In addition spot compression views were performed in the region of palpable abnormality. This study was interpreted with the benefit of Computerized Aided Detection (CAD ). Breast Density: The breast parenchyma shows scattered fibroglandular densities. Breast parenchyma level B. FINDINGS: Of note, exam is limited given limitations in patient positioning given recent surgery. Dense vascular calcifications are seen. A marker is seen overlying the left breast denoting site of palpable abnormality. No definite subjacent breast mass is identified. Diffuse left breast skin thickening is also seen. No suspicious masses, microcalcifications or architectural distortion is present to suggest malignancy in either breast. The visualized axillae are unremarkable. Therefore ultrasound was performed in the region of palpable abnormality. ULTRASOUND FINDINGS: Targeted ultrasound of the patient detected area of concern was performed. Grayscale and color Doppler sonographic evaluation was performed in the region of palpable abnormality. Dense breast tissue seen in this region with associated fatty tissue. No discrete or suspicious mass is identified in the region of possible abnormality. There is diffuse subcutaneous edema and skin thickening in the left breast centered in the retroareolar region. IMPRESSION: No mammographic or sonographic evidence of malignancy. Diffuse left breast skin thickening with edema in conjunction with pain may represent mastitis. BI-RADS CATEGORY: 2 BENIGN FINDING(S) RECOMMENDED FOLLOW-UP: 3M 3 MONTH FOLLOW-UP. Recommend clinical management of the left breast pain, which may represent mastitis. The palpable abnormality may in part related to the diffuse soft tissue edema and thickening however repeat sonographic imaging in the region of palpable abnormality in 3 months following clinical management is recommended. PQRS compliance statement: Patient information was entered into a reminder system with a target due date 05/24/2018 for the next ultrasound. Mammography is a sensitive method for finding small breast cancers, but it does not detect them all and is not a substitute for careful clinical examination. A negative mammogram does not negate a clinically suspicious finding and should not result in delay in biopsying a clinically suspicious abnormality. "Our facility is accredited by the [employer] Mammography Program." MTDD
== END | disposition home or self-care (01) ==
LOC: MAMMO 09:30
PROVIDERS: ATTEND Family Medicine
DX: R92.8 Other abnormal and inconclusive findings on diagnostic imaging of breast (principal)
CPT/HCPCS: 76641; 77066

== ENCOUNTER → 2018-02-27 | Outpatient (CLI) | payer BC ==
[2018-02-18 11:00] VITALS: BP 124/61
== END | disposition home or self-care (01) ==
LOC: PMGWOUND 11:22
PROVIDERS: ATTEND Preventive Medicine Undersea and Hyperbaric Medicine
DX: L97.212 Non-pressure chronic ulcer of right calf with fat layer exposed (principal); I87.021 Postthrombotic syndrome with inflammation of right lower extremity; I13.11 Hypertensive heart and chronic kidney disease without heart failure, with stage 5 chronic kidney disease, or end stage renal disease; E11.22 Type 2 diabetes mellitus with diabetic chronic kidney disease; N18.6 End stage renal disease; E11.51 Type 2 diabetes mellitus with diabetic peripheral angiopathy without gangrene; E21.3 Hyperparathyroidism, unspecified; E78.5 Hyperlipidemia, unspecified; J44.9 Chronic obstructive pulmonary disease, unspecified; I25.10 Atherosclerotic heart disease of native coronary artery without angina pectoris; E66.01 Morbid (severe) obesity due to excess calories; Z68.43 Body mass index [BMI] 50.0-59.9, adult; Z79.4 Long term (current) use of insulin; Z99.2 Dependence on renal dialysis; Z87.891 Personal history of nicotine dependence
CPT/HCPCS: 97597

== ENCOUNTER → 2018-03-20 | Outpatient (CLI) | payer BC ==
[2018-03-02 07:00] VITALS: BP 147/66
== END | disposition home or self-care (01) ==
LOC: PMGWOUND 09:00
PROVIDERS: ATTEND Preventive Medicine Undersea and Hyperbaric Medicine
DX: E11.622 Type 2 diabetes mellitus with other skin ulcer (principal); L97.212 Non-pressure chronic ulcer of right calf with fat layer exposed; I87.021 Postthrombotic syndrome with inflammation of right lower extremity; E11.51 Type 2 diabetes mellitus with diabetic peripheral angiopathy without gangrene; I13.11 Hypertensive heart and chronic kidney disease without heart failure, with stage 5 chronic kidney disease, or end stage renal disease; E11.22 Type 2 diabetes mellitus with diabetic chronic kidney disease; N18.6 End stage renal disease; E11.21 Type 2 diabetes mellitus with diabetic nephropathy; E78.5 Hyperlipidemia, unspecified; E78.00 Pure hypercholesterolemia, unspecified; E03.9 Hypothyroidism, unspecified; I25.10 Atherosclerotic heart disease of native coronary artery without angina pectoris; E66.01 Morbid (severe) obesity due to excess calories; Z68.43 Body mass index [BMI] 50.0-59.9, adult; Z99.2 Dependence on renal dialysis; Z79.4 Long term (current) use of insulin; Z87.891 Personal history of nicotine dependence
CPT/HCPCS: 99214; G0463

== ENCOUNTER → 2018-04-01 | Outpatient (CLI) | payer BC ==
[2018-03-02 07:00] VITALS: BP 147/66
== END | disposition home or self-care (01) ==
LOC: PMGWOUND 09:59
PROVIDERS: ATTEND Preventive Medicine Undersea and Hyperbaric Medicine
DX: E11.622 Type 2 diabetes mellitus with other skin ulcer (principal); L97.212 Non-pressure chronic ulcer of right calf with fat layer exposed; I87.021 Postthrombotic syndrome with inflammation of right lower extremity; I13.11 Hypertensive heart and chronic kidney disease without heart failure, with stage 5 chronic kidney disease, or end stage renal disease; E11.22 Type 2 diabetes mellitus with diabetic chronic kidney disease; N18.6 End stage renal disease; E11.51 Type 2 diabetes mellitus with diabetic peripheral angiopathy without gangrene; E21.3 Hyperparathyroidism, unspecified; E78.5 Hyperlipidemia, unspecified; J44.9 Chronic obstructive pulmonary disease, unspecified; I25.10 Atherosclerotic heart disease of native coronary artery without angina pectoris; E66.01 Morbid (severe) obesity due to excess calories; E11.21 Type 2 diabetes mellitus with diabetic nephropathy; Z87.891 Personal history of nicotine dependence; Z79.82 Long term (current) use of aspirin; Z79.84 Long term (current) use of oral hypoglycemic drugs; Z79.899 Other long term (current) drug therapy; Z88.8 Allergy status to other drugs, medicaments and biological substances; Z91.013 Allergy to seafood; Z79.4 Long term (current) use of insulin; Z99.2 Dependence on renal dialysis; Z68.43 Body mass index [BMI] 50.0-59.9, adult
CPT/HCPCS: 97597

== ENCOUNTER → 2018-04-08 | Outpatient (CLI) | payer BC ==
[2018-03-02 07:00] VITALS: BP 147/66
== END | disposition home or self-care (01) ==
LOC: PMGWOUND 10:06
PROVIDERS: ATTEND Preventive Medicine Undersea and Hyperbaric Medicine
DX: E11.622 Type 2 diabetes mellitus with other skin ulcer (principal); L97.212 Non-pressure chronic ulcer of right calf with fat layer exposed; E11.21 Type 2 diabetes mellitus with diabetic nephropathy; E11.51 Type 2 diabetes mellitus with diabetic peripheral angiopathy without gangrene; I13.11 Hypertensive heart and chronic kidney disease without heart failure, with stage 5 chronic kidney disease, or end stage renal disease; E11.22 Type 2 diabetes mellitus with diabetic chronic kidney disease; N18.6 End stage renal disease; I87.021 Postthrombotic syndrome with inflammation of right lower extremity; E78.5 Hyperlipidemia, unspecified; J44.9 Chronic obstructive pulmonary disease, unspecified; E21.3 Hyperparathyroidism, unspecified; E03.9 Hypothyroidism, unspecified; E78.00 Pure hypercholesterolemia, unspecified; E21.1 Secondary hyperparathyroidism, not elsewhere classified; I25.10 Atherosclerotic heart disease of native coronary artery without angina pectoris; E66.01 Morbid (severe) obesity due to excess calories; Z68.43 Body mass index [BMI] 50.0-59.9, adult; Z99.2 Dependence on renal dialysis; Z79.4 Long term (current) use of insulin; Z87.891 Personal history of nicotine dependence
CPT/HCPCS: 11042

== ENCOUNTER → 2018-04-29 | Outpatient (CLI) | payer BC ==
[2018-03-02 07:00] VITALS: BP 147/66
== END | disposition home or self-care (01) ==
LOC: PMGWOUND 10:10
PROVIDERS: ATTEND Preventive Medicine Undersea and Hyperbaric Medicine
DX: E11.622 Type 2 diabetes mellitus with other skin ulcer (principal); L97.218 Non-pressure chronic ulcer of right calf with other specified severity; I87.021 Postthrombotic syndrome with inflammation of right lower extremity; E11.21 Type 2 diabetes mellitus with diabetic nephropathy; E11.51 Type 2 diabetes mellitus with diabetic peripheral angiopathy without gangrene; I12.0 Hypertensive chronic kidney disease with stage 5 chronic kidney disease or end stage renal disease; E11.22 Type 2 diabetes mellitus with diabetic chronic kidney disease; N18.6 End stage renal disease; E78.5 Hyperlipidemia, unspecified; E03.9 Hypothyroidism, unspecified; E78.00 Pure hypercholesterolemia, unspecified; E21.3 Hyperparathyroidism, unspecified; J44.9 Chronic obstructive pulmonary disease, unspecified; E21.1 Secondary hyperparathyroidism, not elsewhere classified; I25.10 Atherosclerotic heart disease of native coronary artery without angina pectoris; E66.01 Morbid (severe) obesity due to excess calories; Z68.44 Body mass index [BMI] 60.0-69.9, adult; Z79.4 Long term (current) use of insulin; Z79.82 Long term (current) use of aspirin; Z99.2 Dependence on renal dialysis; Z87.891 Personal history of nicotine dependence; Z79.84 Long term (current) use of oral hypoglycemic drugs
CPT/HCPCS: 99213; G0463

== ENCOUNTER → 2018-08-31 | Outpatient (CLI) | payer BC ==
[2018-03-02 07:00] VITALS: BP 147/66
== END | disposition home or self-care (01) ==
LOC: LAB 12:25
PROVIDERS: ATTEND Internal Medicine Nephrology
DX: E11.29 Type 2 diabetes mellitus with other diabetic kidney complication (principal); Z91.041 Radiographic dye allergy status; Z91.013 Allergy to seafood
CPT/HCPCS: 36415; 84132

== ENCOUNTER 2018-10-13 10:38 | Inpatient (IN) | payer MEDICARE, BC ==
[2018-10-13] VITALS (11 sets, daily range): BP systolic 131–192; BP diastolic 50–100
[~2018-10-13] VITALS: Ht 162.6 cm; Wt 111.4 kg
[2018-10-13] MEDS ORDERED: ASPIRIN CHEWABLE 81 MG TABLET. PO ONE (11:00)
--- NOTE | 2018-10-13 11:19 | RAD ---
PORTABLE CHEST 1V Clinical Indication: Chest pain Comparison: AP chest February 28, 2018. Findings: Unchanged moderate cardiomegaly. Patient is post CARLOS. There is mild pulmonary vascular congestion and interstitial edema. No lobar consolidation. There is no pneumothorax. No pleural effusion is appreciated. No acute bone abnormality. IMPRESSION: Unchanged moderate cardiomegaly. Mild CHF or volume overload. Electronically signed by: Angel Bright MD (10/13/2018 11:15 AM) [id number]
[2018-10-13 11:23] LABS: BASO # 0.1 x10^3/uL (0.0-0.2); BASO % 1 % (0-3); EOS # 0.1 x10^3/uL (0.0-0.7); EOS % 1 % (0-3); HEMATOCRIT 31.1 % (36.0-47.0); HEMOGLOBIN 10.2 g/dL (12.0-15.5); LYMPH # 1.4 x10^3/uL (1.0-4.8); LYMPH % 13 % (24-48); MEAN CORPUSCULAR HEMOGLOBIN 28 pg (25-35); MEAN CORPUSCULAR HGB CONC 33 g/dL (31-37); MEAN CORPUSCULAR VOLUME 84 fL (79-100); MONO # 0.9 x10^3/uL (0.0-1.1); MONO % 9 % (0-9); NEUT # 8.2 x10^3/uL (1.8-7.7); NEUT % 77 % (31-73); PLATELET COUNT 215 x10^3/uL (140-400); RED BLOOD COUNT 3.69 x10^6/uL (3.50-5.40); RED CELL DISTRIBUTION WIDTH 19.1 % (11.5-14.5); WHITE BLOOD COUNT 10.7 x10^3/uL (4.0-11.0)
[2018-10-13] MEDS: NITROGLYCERIN SUBLINGUAL 0.4 MG BOTTLE OF 25. SL PRN ×2 (11:31→12:57)
[2018-10-13 11:53] LABS: PROTHROMBIN TIME PATIENT 14.4 SEC (11.7-14.0)
--- NOTE | 2018-10-13 11:59 | EKG ---
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
[2018-10-13 12:03] LABS: CALCIUM 9.7 mg/dL (8.5-10.1); CREATININE 5.8 mg/dL (0.6-1.0); GFR 8.9; POTASSIUM 3.7 mmol/L (3.5-5.1)
[2018-10-13 12:09] LABS: ALBUMIN/GLOBULIN RATIO 0.7 (1.0-1.7); MAGNESIUM 1.8 mg/dL (1.8-2.4); TOTAL BILIRUBIN 0.9 mg/dL (0.2-1.0); TOTAL PROTEIN 7.5 g/dL (6.4-8.2)
--- NOTE | 2018-10-13 12:26 | PHYS DOC ---
Past Medical History Past Medical History: CAD, Diabetes-Type II, High Cholesterol, Hypertension, Renal Disease, Renal Failure, Other Additional Past Medical Histor: HYPOGLYCEMIA,OBESITY, PERITONEAL DIALYSIS Past Surgical History: Other Additional Past Surgical Histo: hemodialysis in left upper arm (NOT IN USE),R CAROTID, R, L ARM GRAFT DIALY Alcohol Use: Rarely Drug Use: None Adult General Chief Complaint Chief Complaint: CHEST PAIN HPI HPI Patient is a 63 year old female who presents by EMS with complaining of chest pain. Patient patient complaining of substernal aching and sharp chest pain that started at 0645 as an intermittent pain with radiation to her back and associated with shortness of breath, dizziness, palpitation and rated her pain 9/10. Patient had finished her dialysis on brought in by EMS because of chest pain. Patient denies any chest pain at arrival to ER. Review of Systems Review of Systems Constitutional: Denies fever or chills [] Eyes: Denies change in visual acuity, redness, or eye pain [] HENT: Denies nasal congestion or sore throat [] Respiratory: Denies cough, reports shortness of breath [] Cardiovascular: No additional information not addressed in HPI [] GI: Denies abdominal pain, nausea, vomiting, bloody stools or diarrhea [] : Denies dysuria or hematuria [] Musculoskeletal: Denies back pain or joint pain [] Integument: Denies rash or skin lesions [] Neurologic: Denies headache, focal weakness or sensory changes [] Endocrine: Denies polyuria or polydipsia [] All other systems were reviewed and found to be within normal limits, except as documented in this note. Current Medications Current Medications Current Medications Medications (Trade) Dose Ordered Sig/Chinmay Start Time Stop Time Status Last Admin Dose Admin Aspirin (Children'S Aspirin) 324 mg 1X ONCE 10/13/18 11:00 10/13/18 11:01 DC 10/13/18 11:31 324 MG Nitroglycerin (Nitrostat) 0.4 mg PRN Q5MIN PRN 10/13/18 11:00 10/13/18 13:04 DC 10/13/18 12:58 0.4 MG Allergies Allergies Allergies Coded Allergies Type Severity Reaction Last Updated Verified Iodine and Iodide Containing Produc Allergy Severe swells up & itches 02/13/18 Yes shellfish derived Allergy Intermediate "SEAFOOD" 02/13/18 Yes Physical Exam Physical Exam Constitutional: Well developed, well nourished, no distress, non-toxic appearance. [] HENT: Normocephalic, atraumatic. Eyes: PERRLA, EOMI, conjunctiva normal, no discharge. [] Neck: Normal range of motion, no tenderness, supple, no stridor. [] Cardiovascular:Heart rate regular rhythm, no murmur [] Lungs & Thorax: Bilateral breath sounds clear to auscultation [] Abdomen: Bowel sounds normal, soft, no tenderness, no masses, no pulsatile masses. [] Skin: Warm, dry, no erythema, no rash. [] Back: No tenderness, no CVA tenderness. [] Extremities: No tenderness, no cyanosis, no clubbing, ROM intact, no edema. [] Neurologic: Alert and oriented X 3, no focal deficits noted. [] Psychologic: Affect normal, judgement normal, mood normal. [] Current Patient Data Vital Signs Vital Signs Date Time Temp Pulse Resp B/P (MAP) Pulse Ox O2 Delivery O2 Flow Rate FiO2 10/13/18 11:45 76 18 198/84 (122) 97 Room Air 10/13/18 11:17 98.7 98.7 Lab Values Laboratory Tests Test 10/13/18 11:10 10/13/18 11:35 White Blood Count 10.7 x10^3/uL (4.0-11.0) Red Blood Count 3.69 x10^6/uL (3.50-5.40) Hemoglobin 10.2 g/dL (12.0-15.5) L Hematocrit 31.1 % (36.0-47.0) L Mean Corpuscular Volume 84 fL (79-100) Mean Corpuscular Hemoglobin 28 pg (25-35) Mean Corpuscular Hemoglobin Concent 33 g/dL (31-37) Red Cell Distribution Width 19.1 % (11.5-14.5) H Platelet Count 215 x10^3/uL (140-400) Neutrophils (%) (Auto) 77 % (31-73) H Lymphocytes (%) (Auto) 13 % (24-48) L Monocytes (%) (Auto) 9 % (0-9) Eosinophils (%) (Auto) 1 % (0-3) Basophils (%) (Auto) 1 % (0-3) Neutrophils # (Auto) 8.2 x10^3/uL (1.8-7.7) H Lymphocytes # (Auto) 1.4 x10^3/uL (1.0-4.8) Monocytes # (Auto) 0.9 x10^3/uL (0.0-1.1) Eosinophils # (Auto) 0.1 x10^3/uL (0.0-0.7) Basophils # (Auto) 0.1 x10^3/uL (0.0-0.2) Prothrombin Time 14.4 SEC (11.7-14.0) H Prothrombin Time INR 1.2 (0.8-1.1) H Sodium Level 142 mmol/L (136-145) Potassium Level 3.7 mmol/L (3.5-5.1) Chloride Level 102 mmol/L (98-107) Carbon Dioxide Level 31 mmol/L (21-32) Anion Gap 9 (6-14) Blood Urea Nitrogen 27 mg/dL (7-20) H Creatinine 5.8 mg/dL (0.6-1.0) H Estimated GFR (Cockcroft-Gault) 8.9 BUN/Creatinine Ratio 5 (6-20) L Glucose Level 100 mg/dL (70-99) H Calcium Level 9.7 mg/dL (8.5-10.1) Magnesium Level 1.8 mg/dL (1.8-2.4) Total Bilirubin 0.9 mg/dL (0.2-1.0) Aspartate Amino Transferase (AST) 16 U/L (15-37) Alanine Aminotransferase (ALT) 11 U/L (14-59) L Alkaline Phosphatase 89 U/L (46-116) Creatine Kinase 46 U/L (26-192) Troponin I Quantitative 0.035 ng/mL (0.000-0.055) JF-Rik-M-Type Natriuretic Peptide > 21711 pg/mL (0-124) H Total Protein 7.5 g/dL (6.4-8.2) Albumin 3.0 g/dL (3.4-5.0) L Albumin/Globulin Ratio 0.7 (1.0-1.7) L Lipase 133 U/L (73-393) Laboratory Tests 10/13/18 11:10 Laboratory Tests 10/13/18 11:35 EKG EKG EKG interpreted by me. EKG at 1045 showed sinus rhythm at rate of 90, left ramos axis, nonspecific intraventricular block, poor R-wave progress in anteroseptal leads, no acute ST and T-wave elevation. 2. EKG at 1253 after starting episodes of chest pain showed normal sinus rhythm at rate of 90, abnormal left axis deviation, nonspecific intraventricular block, ST elevation in anteroseptal leads that was increased compared to previous EKG and code STEMI was activated at 1258. Radiology/Procedures Radiology/Procedures [][facility] [address] [place] [address] IMAGING REPORT Signed PATIENT: ACE GUPTA ACCOUNT: [id number] : 1955 LOCATION: ER AGE: 63 SEX: F EXAM STATUS: REG ER ORD. PHYSICIAN: DIYA COTE MD REASON: chest pain PROCEDURE: PORTABLE CHEST 1V PORTABLE CHEST 1V Clinical Indication: Chest pain Comparison: AP chest February 28, 2018. Findings: Unchanged moderate cardiomegaly. Patient is post CARLOS. There is mild pulmonary vascular congestion and interstitial edema. No lobar consolidation. There is no pneumothorax. No pleural effusion is appreciated. No acute bone abnormality. IMPRESSION: Unchanged moderate cardiomegaly. Mild CHF or volume overload. Electronically signed by: Angel Bright MD (10/13/2018 11:15 AM) [id number] DICTATED and SIGNED BY: ANGEL BRIGHT MD DATE: 10/13/18 1115 Course & Med Decision Making Course & Med Decision Making Pertinent Labs and Imaging studies reviewed. (See chart for details) Evaluation of patient in ER showed 63-year-old female patient with history of chronic renal failure on dialysis brought in by EMS because of chest pain that r esolved at arrival to ER. Patient had normal potassium and cardiac enzymes. Patient had blood sugar of 200 at arrival to ER that gradually decreased to 180s. Patient had heart score 5. Patient requiring admission for further evaluation and treatment. Discussed with Dr. Hatfield who is in agreement with admission. Discussed findings and plan with patient and family, who acknowledge understanding and agreement. 1310: Patient developed another episode of chest pain after walking to the bathroom and rated her pain 10 over 10. EKG showed increase of ST elevation in anteroseptal leads. Code STEMI was activated at [address] Avila to call back at 13 0 today and presented to ER and evaluated the patient and her EKG and recommended to repeat serial troponin and admit patient to ICU. Chest pain resolved after 1 dose of nitroglycerin. Dragon Disclaimer Dragon Disclaimer This electronic medical record was generated, in whole or in part, using a voice recognition dictation system. Departure Departure Impression: Primary Impression: Acute chest pain Additional Impressions: End stage renal disease on dialysis Anemia Disposition: ADMITTED INPATIENT (1203) Admitting Physician: HIMOliva (Dr. Hatfield accepted admission at arrival to) Condition: IMPROVED Referrals: YAIMA HIGHTOWER MD (PCP) The HEART Score for CP Pts HEART Score for Chest Pain: HEART Score for Chest Pain Response (Comments) Value History Moderately Suspicious 1 ECG Nonspecific Repolarizatio 1 Age >45 - < 65 1 Risk Factors >3 Risk Factors or Hx CAD 2 Troponin < Normal Limit 0 Total 5 Risk Factors: Risk Factors: DM, Current or recent (<one month) smoker, HTN, HLP, family history of CAD, obesity. Risk Scores: Score 0 - 3: 2.5% MACE over next 6 weeks - Discharge Home Score 4 - 6: 20.3% MACE over next 6 weeks - Admit for Clinical Observation Score 7 - 10: 72.7% MACE over next 6 weeks - Early Invasive Strategies Critical Care Time Critical care time was 80 minutes exclusive of procedures. Problem Qualifiers Additional Impressions: Anemia Anemia type: unspecified type Qualified Codes: D64.9 - Anemia, unspecified DIYA COTE MD Oct 13, 2018 12:26
[2018-10-13] MEDS ORDERED: IODIXANOL 320 MG/ML 100 ML VIAL. ONE (13:05)
[2018-10-13] MEDS ORDERED: LIDOCAINE 1% Multi-Dose 20 ML VIAL. ONE (13:05)
[2018-10-13] MEDS ORDERED: NITROGLYCERIN SUBLINGUAL 0.4 MG BOTTLE OF 25. SL PRN (13:15)
--- NOTE | 2018-10-13 14:32 | PDOC2 ---
CARDIAC CONSULT DATE OF CONSULT Date of Consult DATE: 10/13/18 TIME: 14:24 REASON FOR CONSULT Reason for Consult: Chest pain SOURCE Source: Chart review, Patient HISTORY OF PRESENT ILLNESS HISTORY OF PRESENT ILLNESS This is a 63 yo female who presented secondary to chest pain while on hemodialysis earlier today. Reports tightness, stabbing pain in her central chest. Associated with diaphoresis ad nausea. No palpitations, dizziness, or shortness of breath. Pain persisted so she was recommended to go to the ED for further evaluation and treatment. Initially code STEMI, but was canceled by Dr. Miguel after further evaluation the of patient and EKG. Pain improved with nitro in ED. No further pain. Does have a history of CAD with known RN HEMODIALYSIS CHARGE of the LAD. PAST MEDICAL HISTORY Cardiovascular: AFIB, CAD, CHF, HTN, Hyperlipidemia, Aortic stenosis (s/p TAVT ) Pulmonary: COPD, Other (XOCHILT) CENTRAL NERVOUS SYSTEM: Periperal neuropathy Heme/Onc: Anemia NOS, Other (DVT ) Musculoskeletal: Osteoarthritis, Other (DDD) Renal/: Chronic renal failure Endocrine: Diabetes PAST SURGICAL HISTORY Past Surgical History: Hernia Repair FAMILY HISTORY Family History: Cancer CURRENT MEDICATIONS CURRENT MEDICATIONS Current Medications Medications (Trade) Dose Ordered Sig/Chinmay Route PRN Reason Start Time Stop Time Status Last Admin Dose Admin Aspirin (Children'S Aspirin) 324 mg 1X ONCE PO 10/13/18 11:00 10/13/18 11:01 DC 10/13/18 11:31 Nitroglycerin (Nitrostat) 0.4 mg PRN Q5MIN PRN SL CP RATING > 1/10 10/13/18 11:00 10/13/18 13:04 DC 10/13/18 12:58 ALLERGIES ALLERGIES: Coded Allergies: Iodine and Iodide Containing Produc (Verified Allergy, Severe, swells up & itches, 02/13/18) shellfish derived (Verified Allergy, Intermediate, "SEAFOOD", 02/13/18) ROS Review of System 14 point ROS conducted with pertinent positives noted above in HPI. PHYSICAL EXAM General: Alert, Oriented X3, Cooperative, No acute distress HEENT: Atraumatic Lungs: Clear to auscultation, Normal air movement Heart: Regular rate, Normal S1, Normal S2, Other (2/6 systolic murmur ) Abdomen: No tenderness, No hepatosplenomegaly Extremities: No edema, Normal pulses Skin: No significant lesion Neuro: Normal speech, Sensation intact Psych/Mental Status: Mental status NL, Mood NL MUSCULOSKELETAL: Osteoarthritic changes both hands VITALS/I&O VITALS/I&O: Vital Signs Date Time Temp Pulse Resp B/P (MAP) Pulse Ox O2 Delivery O2 Flow Rate FiO2 10/13/18 13:45 82 18 168/75 (106) 96 Room Air 10/13/18 11:17 98.7 98.7 LABS Lab: Laboratory Tests Test 10/13/18 11:10 10/13/18 11:35 10/13/18 13:40 White Blood Count 10.7 x10^3/uL (4.0-11.0) Red Blood Count 3.69 x10^6/uL (3.50-5.40) Hemoglobin 10.2 g/dL (12.0-15.5) L Hematocrit 31.1 % (36.0-47.0) L Mean Corpuscular Volume 84 fL (79-100) Mean Corpuscular Hemoglobin 28 pg (25-35) Mean Corpuscular Hemoglobin Concent 33 g/dL (31-37) Red Cell Distribution Width 19.1 % (11.5-14.5) H Platelet Count 215 x10^3/uL (140-400) Neutrophils (%) (Auto) 77 % (31-73) H Lymphocytes (%) (Auto) 13 % (24-48) L Monocytes (%) (Auto) 9 % (0-9) Eosinophils (%) (Auto) 1 % (0-3) Basophils (%) (Auto) 1 % (0-3) Neutrophils # (Auto) 8.2 x10^3/uL (1.8-7.7) H Lymphocytes # (Auto) 1.4 x10^3/uL (1.0-4.8) Monocytes # (Auto) 0.9 x10^3/uL (0.0-1.1) Eosinophils # (Auto) 0.1 x10^3/uL (0.0-0.7) Basophils # (Auto) 0.1 x10^3/uL (0.0-0.2) Prothrombin Time 14.4 SEC (11.7-14.0) H Prothrombin Time INR 1.2 (0.8-1.1) H Sodium Level 142 mmol/L (136-145) Potassium Level 3.7 mmol/L (3.5-5.1) Chloride Level 102 mmol/L (98-107) Carbon Dioxide Level 31 mmol/L (21-32) Anion Gap 9 (6-14) Blood Urea Nitrogen 27 mg/dL (7-20) H Creatinine 5.8 mg/dL (0.6-1.0) H Estimated GFR (Cockcroft-Gault) 8.9 BUN/Creatinine Ratio 5 (6-20) L Glucose Level 100 mg/dL (70-99) H Calcium Level 9.7 mg/dL (8.5-10.1) Magnesium Level 1.8 mg/dL (1.8-2.4) Total Bilirubin 0.9 mg/dL (0.2-1.0) Aspartate Amino Transferase (AST) 16 U/L (15-37) Alanine Aminotransferase (ALT) 11 U/L (14-59) L Alkaline Phosphatase 89 U/L (46-116) Creatine Kinase 46 U/L (26-192) Troponin I Quantitative 0.035 ng/mL (0.000-0.055) 0.063 ng/mL (0.000-0.055) MO-Tyz-P-Type Natriuretic Peptide > 50117 pg/mL (0-124) H Total Protein 7.5 g/dL (6.4-8.2) Albumin 3.0 g/dL (3.4-5.0) L Albumin/Globulin Ratio 0.7 (1.0-1.7) L Lipase 133 U/L (73-393) Laboratory Tests 10/13/18 11:10 Laboratory Tests 10/13/18 11:35 ECHOCARDIOGRAM ECHOCARDIOGRAM DATE: 01/09/18 1229 <Conclusion> The left ventricular systolic function is normal. The Ejection Fraction is 60-65%. There is normal LV segmental wall motion. Transmitral Doppler flow pattern is Grade I-abnormal relaxation pattern. The left atrium is mildly dilated. There is severe valvular aortic stenosis with calculated aortic valve area is 0.6 cm2 and mean pressure gradient of 45 mmHg. Mild tricuspid regurgitation. There is moderate pulmonary hypertension. The PA pressure was estimated at 55 mmHg. There is a trace pericardial effusion. DATE: 07/30/18 at Technically difficult study; i.v. transpulmonary contrast was used to define the endocardial borders. Moderately depressed left ventricular systolic function, estimated ejection fraction is 40%, global hypokineis. Moderate concentric hypertrophy. There is severe mitral annular calcification without stenosis. Trace mitral and tricuspid valve regurgitation. There is a well seated, normal functioning TAVR (# 29 Evolut Pro, MG= 14 mmHg ), no paravalvular regurgitation, mild transvalvular regurgitation. No echocardiographic evidence of hemodynamic compromise. Small circumferential pericardial effusion. Effusion is fluid. Estimated Peak Systolic PA Pressure 54 mmHg HEART CATH HEART CATH Conclusion 1. Two vessel coronary artery disease with apical LAD chronic total occlusion. Recommendations Aggressive Medical Therapy 1. Could consider LAD RN HEMODIALYSIS CHARGE PCI if any significant ischemia, otherwise, recommend continued evaluation of valvular heart disease. DATE: 01/29/18 1152 ASSESSMENT/PLAN ASSESSMENT/PLAN 1. Chest pain, mixed features. Initial trop negative and subsequent mildly elevated. 2. Mild troponin elevation; highest 0.063 3. CAD with known RN HEMODIALYSIS CHARGE of the LAD 5. Mild acute on chronic systolic HF with CMP. LVEF 6/6 40% at post TAVR. Appears clinically compensated. 6. LBBB; chronic post TAVR per documentation 7. Accelerated hypertension; remains elevated 8. s/p TAVR 06/2018 at 9. Hyperlipidemia; statin 10. Diabetes, II 1. ESRD on HD Recommendations Trend troponin Lipids Echo to assess LV systolic function Resume secondary prevention measures Continue home antiHTN therapy. Hydralazine IV PRN Fluid offloading via HD Supportive care Further pending above. JEANNA CANNON APRN Oct 13, 2018 14:32
--- NOTE | 2018-10-13 14:36 | HP ---
ADMIT DATE: 10/13/2018 CHIEF COMPLAINT: Chest pain. HISTORY OF PRESENT ILLNESS: The patient is a pleasant 63-year-old female who presents with chest pain. She is on dialysis. She has some mild vascular disease. She does have COPD, diabetes, hypertension and aortic valve replacement as well. I discussed the case with ER physician. We are going to admit the patient and consult Cardiology. PAST MEDICAL HISTORY: Aortic valve replacement, hypertension, COPD, diabetes, end-stage renal disease, on dialysis. ALLERGIES: IODINE. FAMILY HISTORY: Diabetes. 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 She does not drink or take drugs. She quit smoking. MEDICATIONS: Reviewed. She is on Norvasc, aspirin, Lipitor, glipizide, Tradjenta, Toprol and sodium bicarbonate. REVIEW OF SYSTEMS: GENERAL: No history of weight change, weakness or fevers. SKIN: No bruising, hair changes or rashes. EYES: No blurred, double or loss of vision. NOSE AND THROAT: No history of nosebleeds, hoarseness or sore throat. HEART: She complains of chest pain, although it was relieved with nitro. LUNGS: Denies cough, hemoptysis, wheezing or shortness of breath. GASTROINTESTINAL: Denies changes in appetite, nausea, vomiting, diarrhea or constipation. GENITOURINARY: No history of frequency, urgency, hesitancy or nocturia. NEUROLOGIC: Denies history of numbness, tingling, tremor or weakness. PSYCHIATRIC: No history of panic, anxiety or depression. ENDOCRINE: No history of heat or cold intolerance, polyuria or polydipsia. EXTREMITIES: Denies muscle weakness, joint pain, pain on walking or stiffness. PHYSICAL EXAMINATION: VITALS: Within normal limits and are stable. GENERAL: No apparent distress. Alert and oriented. HEENT: Head is normocephalic, atraumatic, pupils were equally round and reactive to light and accommodation. NECK: Supple, no JVD, no thyromegaly was noted. LUNGS: Clear to auscultation in all lung moreno without rhonchi or wheezing. HEART: RRR, S1, S2 present. Peripheral pulses intact, no obvious murmurs were noted. ABDOMEN: Soft, nontender. Positive bowel sounds no organomegaly, normal bowel sounds. EXTREMITIES: Without any cyanosis, clubbing, or edema. Pedal pulses intact, Homans sign is negative. NEUROLOGIC: Normal speech, normal tone. A & O x 3, moves all extremities, no obvious focal deficits. PSYCHIATRIC: Normal affect, normal mood. Stable. SKIN: No ulcerations or rashes, good skin turgor, no jaundice. VASCULAR: Good capillary refill, neurovascular bundle appears to be intact. LABORATORY DATA: BNP is 35,000. Troponin 0.35. ASSESSMENT AND PLAN: Chest pain with slightly elevated troponin in an elderly female who has end-stage renal disease, on dialysis. The patient will be admitted to the ICU. Consult Cardiology, serial enzymes, serial EKGs, cardiac monitoring, home meds, physical therapy, occupational therapy. ALLIE LUNA DO DR: DULCE/prabha JOB#: [id number] / [id number]
[2018-10-13] MEDS ORDERED: LATA2.5D3 EACHEYE (15:23)
[2018-10-13] MEDS ORDERED: DIFL5DRO2 OP (15:23)
[2018-10-13] MEDS ORDERED: BUDE10.2 IH (15:23)
[2018-10-13] MEDS ORDERED: CINA30TA2 PO (15:23)
[2018-10-13] MEDS ORDERED: BROM5DRO3 OP (15:23)
[2018-10-13] MEDS ORDERED: ISOS30TA4 PO (15:23)
--- NOTE | 2018-10-13 16:25 | EKG ---
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
[2018-10-13 16:56] LABS: CHOLESTEROL/HDL RATIO 3.1
[2018-10-13] MEDS: SEVELAMER CARBONATE 800 MG TABLET. PO SCH (17:34)
--- NOTE | 2018-10-13 20:15 | NUR ---
Patient has not taken any of her antihypertensive medications prior to admission since she came via EMS directly from dialysis. Called Dr Dailey notified of no antihypertensive med today and they are not ordered until 10/14/18 am. Orders received to give Toprol XL 50MG PO and Imdur 30MG PO tonight. Notified patient who is in agreement.
[2018-10-13] MEDS ORDERED: METOPROLOL TART IMMED RELEASE 50 MG TABLET. PO ONE (20:30)
[2018-10-13] MEDS ORDERED: ISOSORBIDE MONONITRATE ER 30 MG TAB.ER.24H PO ONE (20:30)
[2018-10-13] MEDS: ALBUTEROL SULFATE 2.5 MG/3 ML NEBU. NEB SCH (20:36)
[2018-10-13] MEDS: BUDESONIDE 0.5 MG/2 ML NEBU. NEB SCH (20:36)
[2018-10-13] MEDS: SODIUM BICARBONATE 650 MG TABLET. PO SCH (21:10)
[2018-10-13] MEDS: KETOROLAC TROMETHAMINE 0.5% OPHTH SOLUTION 3ML BOTTLE. OU SCH (21:14)
[2018-10-13] MEDS: LATANOPROST 0.005% OPHTH SOLUTION 2.5ML BOTTLE. OU SCH (21:14)
--- NOTE | 2018-10-13 21:14 | NUR ---
Acular and Durezol eye drops non-administered--unavailable from pharmacy, waiting for family to bring medications in. Patient states daughter is aware she is to bring them in tomorrow.
[2018-10-14] VITALS (12 sets, daily range): BP systolic 131–180; BP diastolic 55–92
[2018-10-14] MEDS: hydrALAZINE 20 MG/ML VIAL. IVP PRN ×2 (02:04→06:17)
[2018-10-14] MEDS ORDERED: ONDANSETRON PF 4 MG/2 ML VIAL. IV PRN (06:15)
[2018-10-14] MEDS ORDERED: guaiFENesin ORAL 200 MG/10 ML LIQUID. PO PRN (06:15)
--- NOTE | 2018-10-14 06:15 | NUR ---
Patient complaining of acute episode of Nausea and continued cough all night, Dr Dailey called, orders received for Zofran 4MG IVP PRN Q6HRS and Guaifenesin 200MG [place] PRN Q4HRS. See orders.
[2018-10-14] MEDS: ALBUTEROL SULFATE 2.5 MG/3 ML NEBU. NEB SCH ×2 (07:21→11:45)
[2018-10-14] MEDS: BUDESONIDE 0.5 MG/2 ML NEBU. NEB SCH (07:21)
[2018-10-14] MEDS: SEVELAMER CARBONATE 800 MG TABLET. PO SCH (08:08)
[2018-10-14] MEDS: LATANOPROST 0.005% OPHTH SOLUTION 2.5ML BOTTLE. OU SCH (08:57)
[2018-10-14] MEDS: SODIUM BICARBONATE 650 MG TABLET. PO SCH (08:59)
[2018-10-14] MEDS ORDERED: DEXAMETHASONE 0.1% OPHTH SOLUTION 5ML BOTTLE. OU SCH (09:00)
[2018-10-14] MEDS ORDERED: LINAGLIPTIN 5 MG TABLET PO SCH (09:00)
[2018-10-14] MEDS ORDERED: ASPIRIN CHEWABLE 81 MG TABLET. PO SCH (09:00)
[2018-10-14] MEDS ORDERED: ISOSORBIDE MONONITRATE ER 30 MG TAB.ER.24H PO SCH (09:00)
[2018-10-14] MEDS ORDERED: METOPROLOL SUCC 24HR ER 50 MG TAB.ER.24H. PO SCH (09:00)
[2018-10-14] MEDS ORDERED: glipiZIDE 5 MG TABLET PO SCH (09:00)
[2018-10-14] MEDS ORDERED: amLODIPine BESYLATE 10 MG TABLET PO SCH (09:00)
[2018-10-14] MEDS ORDERED: ATORVASTATIN CALCIUM 40 MG TABLET. PO SCH (09:00)
[2018-10-14] MEDS: KETOROLAC TROMETHAMINE 0.5% OPHTH SOLUTION 3ML BOTTLE. OU SCH (09:00)
[2018-10-14] MEDS ORDERED: CINACALCET HCL 30 MG TABLET PO SCH (09:00)
--- NOTE | 2018-10-14 09:20 | CARD ---
MR#: [id number] Date of Study: 10/14/2018 Ordering Physician: JEANNA CANNON, Referring Physician: JEANNA CANNON, Tech: Juliana Cline TRINA APPROVED REPORT EXAM: Two-dimensional and M-mode echocardiogram with Doppler and color Doppler. Other Information Quality : Technically LimitedHR: 90bpm Rhythm : NSRTechnically limited study due to INDICATION Chest Pain 2D DIMENSIONS RVDd3.2 (2.9-3.5cm)Left Atrium(2D)5.3 (1.6-4.0cm) IVSd1.4 (0.7-1.1cm)Aortic Root(2D)2.7 (2.0-3.7cm) LVDd5.3 (3.9-5.9cm)LVOT Diameter1.8 (1.8-2.4cm) PWd1.4 (0.7-1.1cm)LVDs4.0 (2.5-4.0cm) FS (%) 25.0 %SV66.3 ml LVEF(%)49.0 (>50%) Aortic Valve AoV Peak Everardo.234.1cm/sAoV VTI45.8cm AO Peak GR.21.9mmHgLVOT VTI 15.85cm AO Mean GR.11mmHgAVA (VMAX)1.00cm2 ISIDRO (VTI)0.90cm2 Mitral Valve MV E Mgchxmvl097.0cm/sMV DECEL EDSI96gh MV A Ikayohmz063.7cm/sMV E Mean Gr.3mmHg E/A Ratio1.3 Tricuspid Valve TR P. Dwxjeosw483oh/sRAP [id number] TR Peak Gr.[id number] LEFT VENTRICLE The left ventricle is normal size. There is moderate concentric left ventricular hypertrophy. The sys tolic function is moderately impaired. EF 35% Septal motion consistent with conduction abnormality. T here is global hypokinesis. Transmitral Doppler flow pattern is Grade II-pseudonormal filling dynamic s. RIGHT VENTRICLE The right ventricle is normal size. There is normal right ventricular wall thickness. The right ventr icular systolic function is normal. ATRIA The left atrium is moderately dilated. The right atrium is mildly dilated. The interatrial septum is intact with no evidence for an atrial septal defect or patent foramen ovale as noted on 2-D or Dopple r imaging. AORTIC VALVE The aortic valve is not well visualized. TAVR valve in place. Doppler and Color Flow revealed no sign ificant aortic regurgitation. TAVR valve with a maximum pressure gradient of 22 mmHg and mean pressur e gradient of 11 mmHg. MITRAL VALVE Mitral annular calcification is moderate. There is no evidence of mitral valve prolapse. There is no mitral valve stenosis. TRICUSPID VALVE The tricuspid valve is normal in structure and function. Doppler and Color Flow revealed trace tricus pid regurgitation. The PA pressure was estimated at 39 mmHg. There is no tricuspid valve prolapse or vegetation. There is no tricuspid valve stenosis. PULMONIC VALVE The pulmonic valve is not well visualized. GREAT VESSELS The aortic root is normal in size. The ascending aorta is normal in size. The IVC is dilated and kandace apses <50% with inspiration. PERICARDIAL EFFUSION There is a small circumferential pericardial effusion. Critical Notification Critical Value: No <Conclusion> Septal motion consistent with conduction abnormality. There is global hypokinesis. The aortic valve is not well visualized. TAVR valve in place. Doppler and Color Flow revealed trace tricuspid regurgitation. The PA pressure was estimated at 39 mm Hg. There is a small circumferential pericardial effusion. Signed by : Tacho Pedersen, Electronically Approved : 10/14/2018 09:19:48
[2018-10-14 09:25] LABS: BASO # 0.1 x10^3/uL (0.0-0.2); BASO % 1 % (0-3); EOS # 0.2 x10^3/uL (0.0-0.7); EOS % 2 % (0-3); HEMATOCRIT 32.4 % (36.0-47.0); HEMOGLOBIN 10.3 g/dL (12.0-15.5); LYMPH # 1.7 x10^3/uL (1.0-4.8); LYMPH % 16 % (24-48); MEAN CORPUSCULAR HEMOGLOBIN 27 pg (25-35); MEAN CORPUSCULAR HGB CONC 32 g/dL (31-37); MEAN CORPUSCULAR VOLUME 85 fL (79-100); MONO % 10 % (0-9); NEUT # 7.2 x10^3/uL (1.8-7.7); NEUT % 71 % (31-73); PLATELET COUNT 219 x10^3/uL (140-400); RED CELL DISTRIBUTION WIDTH 19.2 % (11.5-14.5); WHITE BLOOD COUNT 10.2 x10^3/uL (4.0-11.0)
[2018-10-14 09:45] LABS: CALCIUM 10.6 mg/dL (8.5-10.1); CREATININE 8.5 mg/dL (0.6-1.0); GFR 5.7; MAGNESIUM 1.8 mg/dL (1.8-2.4); PHOSPHORUS 5.6 mg/dL (2.6-4.7); POTASSIUM 3.9 mmol/L (3.5-5.1)
[2018-10-14] MEDS ORDERED: NITR0.4T SL (10:40)
--- NOTE | 2018-10-14 10:43 | PDOC ---
PROGRESS NOTES Chief Complaint Chief Complaint Chest pain - resolved. Minimally elevated troponin. Known distal LAD disease. Continuing on medical treatment. 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 Ejection fraction of 40% at 2 months ago. Compensated. Continue treatment. TAVR - placed at . Repeat today Accelerated hypertension - on meds Hyperlipidemia - Patient continues on a statin. End-stage renal disease - hemodialysis. Diabetes mellitus History of Present Illness History of Present Illness Ms Lara is a 63 yo F w/ PMHx aortic valve replacement, hypertension, COPD on home O2, diabetes, end-stage renal disease, on dialysis who presents with chest pain. Associated with diaphoresis and nausea. No palpitations, dizziness, or shortness of breath. Pain persisted so she was recommended to go to the ED for further evaluation and treatment. Initially code STEMI, but was canceled by Dr. Miguel after further evaluation the of patient and EKG. Pain improved with nitro in ED. No further pain. Does have a history of CAD with known ELECTRICIAN SHIP of the LAD. Troponin 0.063-->0.174. She is chest pain free this morning, feels it was gas pain. Wishes for discharge. Vitals Vitals Vital Signs Date Time Temp Pulse Resp B/P (MAP) Pulse Ox O2 Delivery O2 Flow Rate FiO2 10/14/18 09:00 80 131/55 10/14/18 09:00 20 94 Room Air 10/14/18 08:00 98.1 98.1 10/14/18 07:25 2.0 Physical Exam General: Alert, Oriented X3, Cooperative, No acute distress Heart: Regular rate, Normal S1, Normal S2, Other (2/6 systolic murmur ) Lungs: Clear, Other Abdomen: No tenderness, No hepatosplenomegaly Extremities: No edema, Normal pulses Skin: No significant lesion Labs LABS Laboratory Tests Test 10/13/18 11:10 10/13/18 11:35 10/13/18 13:40 10/13/18 17:20 White Blood Count 10.7 x10^3/uL (4.0-11.0) Red Blood Count 3.69 x10^6/uL (3.50-5.40) Hemoglobin 10.2 g/dL (12.0-15.5) Hematocrit 31.1 % (36.0-47.0) Mean Corpuscular Volume 84 fL (79-100) Mean Corpuscular Hemoglobin 28 pg (25-35) Mean Corpuscular Hemoglobin Concent 33 g/dL (31-37) Red Cell Distribution Width 19.1 % (11.5-14.5) Platelet Count 215 x10^3/uL (140-400) Neutrophils (%) (Auto) 77 % (31-73) Lymphocytes (%) (Auto) 13 % (24-48) Monocytes (%) (Auto) 9 % (0-9) Eosinophils (%) (Auto) 1 % (0-3) Basophils (%) (Auto) 1 % (0-3) Neutrophils # (Auto) 8.2 x10^3/uL (1.8-7.7) Lymphocytes # (Auto) 1.4 x10^3/uL (1.0-4.8) Monocytes # (Auto) 0.9 x10^3/uL (0.0-1.1) Eosinophils # (Auto) 0.1 x10^3/uL (0.0-0.7) Basophils # (Auto) 0.1 x10^3/uL (0.0-0.2) Prothrombin Time 14.4 SEC (11.7-14.0) Prothromb Time International Ratio 1.2 (0.8-1.1) Sodium Level 142 mmol/L (136-145) Potassium Level 3.7 mmol/L (3.5-5.1) Chloride Level 102 mmol/L (98-107) Carbon Dioxide Level 31 mmol/L (21-32) Anion Gap 9 (6-14) Blood Urea Nitrogen 27 mg/dL (7-20) Creatinine 5.8 mg/dL (0.6-1.0) Estimated GFR (Cockcroft-Gault) 8.9 BUN/Creatinine Ratio 5 (6-20) Glucose Level 100 mg/dL (70-99) Calcium Level 9.7 mg/dL (8.5-10.1) Magnesium Level 1.8 mg/dL (1.8-2.4) Total Bilirubin 0.9 mg/dL (0.2-1.0) Aspartate Amino Transf (AST/SGOT) 16 U/L (15-37) Alanine Aminotransferase (ALT/SGPT) 11 U/L (14-59) Alkaline Phosphatase 89 U/L (46-116) Creatine Kinase 46 U/L (26-192) Troponin I Quantitative 0.035 ng/mL (0.000-0.055) 0.063 ng/mL (0.000-0.055) 0.174 ng/mL (0.000-0.055) CI-Jsj-N-Type Natriuretic Peptide > 79853 pg/mL (0-124) Total Protein 7.5 g/dL (6.4-8.2) Albumin 3.0 g/dL (3.4-5.0) Albumin/Globulin Ratio 0.7 (1.0-1.7) Triglycerides Level 87 mg/dL (0-150) Cholesterol Level 129 mg/dL (0-200) LDL Cholesterol, Calculated 70 mg/dL (0-100) VLDL Cholesterol, Calculated 17 mg/dL (0-40) Non-HDL Cholesterol Calculated 87 mg/dL (0-129) HDL Cholesterol 42 mg/dL (40-60) Cholesterol/HDL Ratio 3.1 Lipase 133 U/L (73-393) Test 10/13/18 21:27 10/14/18 09:00 Glucose (Fingerstick) 145 mg/dL (70-99) White Blood Count 10.2 x10^3/uL (4.0-11.0) Red Blood Count 3.80 x10^6/uL (3.50-5.40) Hemoglobin 10.3 g/dL (12.0-15.5) Hematocrit 32.4 % (36.0-47.0) Mean Corpuscular Volume 85 fL (79-100) Mean Corpuscular Hemoglobin 27 pg (25-35) Mean Corpuscular Hemoglobin Concent 32 g/dL (31-37) Red Cell Distribution Width 19.2 % (11.5-14.5) Platelet Count 219 x10^3/uL (140-400) Neutrophils (%) (Auto) 71 % (31-73) Lymphocytes (%) (Auto) 16 % (24-48) Monocytes (%) (Auto) 10 % (0-9) Eosinophils (%) (Auto) 2 % (0-3) Basophils (%) (Auto) 1 % (0-3) Neutrophils # (Auto) 7.2 x10^3/uL (1.8-7.7) Lymphocytes # (Auto) 1.7 x10^3/uL (1.0-4.8) Monocytes # (Auto) 1.0 x10^3/uL (0.0-1.1) Eosinophils # (Auto) 0.2 x10^3/uL (0.0-0.7) Basophils # (Auto) 0.1 x10^3/uL (0.0-0.2) Sodium Level 143 mmol/L (136-145) Potassium Level 3.9 mmol/L (3.5-5.1) Chloride Level 103 mmol/L (98-107) Carbon Dioxide Level 28 mmol/L (21-32) Anion Gap 12 (6-14) Blood Urea Nitrogen 41 mg/dL (7-20) Creatinine 8.5 mg/dL (0.6-1.0) Estimated GFR (Cockcroft-Gault) 5.7 Glucose Level 139 mg/dL (70-99) Calcium Level 10.6 mg/dL (8.5-10.1) Phosphorus Level 5.6 mg/dL (2.6-4.7) Magnesium Level 1.8 mg/dL (1.8-2.4) Assessment and Plan Assessmemt and Plan Problems Medical Problems: (1) Accelerated hypertension Status: Chronic (2) Acute chest pain Status: Acute (3) Acute on chronic systolic (congestive) heart failure Status: Acute (4) Anemia Status: Acute (5) DM2 (diabetes mellitus, type 2) Status: Chronic (6) End stage renal disease on dialysis Status: Acute (7) HLD (hyperlipidemia) Status: Chronic (8) LBBB (left bundle branch block) Status: Chronic Comment Review of Relevant I have reviewed the following items caroline (where applicable) has been applied. Labs Laboratory Tests Test 10/13/18 11:10 10/13/18 11:35 10/13/18 13:40 10/13/18 17:20 White Blood Count 10.7 x10^3/uL (4.0-11.0) Red Blood Count 3.69 x10^6/uL (3.50-5.40) Hemoglobin 10.2 g/dL (12.0-15.5) Hematocrit 31.1 % (36.0-47.0) Mean Corpuscular Volume 84 fL (79-100) Mean Corpuscular Hemoglobin 28 pg (25-35) Mean Corpuscular Hemoglobin Concent 33 g/dL (31-37) Red Cell Distribution Width 19.1 % (11.5-14.5) Platelet Count 215 x10^3/uL (140-400) Neutrophils (%) (Auto) 77 % (31-73) Lymphocytes (%) (Auto) 13 % (24-48) Monocytes (%) (Auto) 9 % (0-9) Eosinophils (%) (Auto) 1 % (0-3) Basophils (%) (Auto) 1 % (0-3) Neutrophils # (Auto) 8.2 x10^3/uL (1.8-7.7) Lymphocytes # (Auto) 1.4 x10^3/uL (1.0-4.8) Monocytes # (Auto) 0.9 x10^3/uL (0.0-1.1) Eosinophils # (Auto) 0.1 x10^3/uL (0.0-0.7) Basophils # (Auto) 0.1 x10^3/uL (0.0-0.2) Prothrombin Time 14.4 SEC (11.7-14.0) Prothromb Time International Ratio 1.2 (0.8-1.1) Sodium Level 142 mmol/L (136-145) Potassium Level 3.7 mmol/L (3.5-5.1) Chloride Level 102 mmol/L (98-107) Carbon Dioxide Level 31 mmol/L (21-32) Anion Gap 9 (6-14) Blood Urea Nitrogen 27 mg/dL (7-20) Creatinine 5.8 mg/dL (0.6-1.0) Estimated GFR (Cockcroft-Gault) 8.9 BUN/Creatinine Ratio 5 (6-20) Glucose Level 100 mg/dL (70-99) Calcium Level 9.7 mg/dL (8.5-10.1) Magnesium Level 1.8 mg/dL (1.8-2.4) Total Bilirubin 0.9 mg/dL (0.2-1.0) Aspartate Amino Transf (AST/SGOT) 16 U/L (15-37) Alanine Aminotransferase (ALT/SGPT) 11 U/L (14-59) Alkaline Phosphatase 89 U/L (46-116) Creatine Kinase 46 U/L (26-192) Troponin I Quantitative 0.035 ng/mL (0.000-0.055) 0.063 ng/mL (0.000-0.055) 0.174 ng/mL (0.000-0.055) MG-Iug-X-Type Natriuretic Peptide > 91330 pg/mL (0-124) Total Protein 7.5 g/dL (6.4-8.2) Albumin 3.0 g/dL (3.4-5.0) Albumin/Globulin Ratio 0.7 (1.0-1.7) Triglycerides Level 87 mg/dL (0-150) Cholesterol Level 129 mg/dL (0-200) LDL Cholesterol, Calculated 70 mg/dL (0-100) VLDL Cholesterol, Calculated 17 mg/dL (0-40) Non-HDL Cholesterol Calculated 87 mg/dL (0-129) HDL Cholesterol 42 mg/dL (40-60) Cholesterol/HDL Ratio 3.1 Lipase 133 U/L (73-393) Test 10/13/18 21:27 10/14/18 09:00 Glucose (Fingerstick) 145 mg/dL (70-99) White Blood Count 10.2 x10^3/uL (4.0-11.0) Red Blood Count 3.80 x10^6/uL (3.50-5.40) Hemoglobin 10.3 g/dL (12.0-15.5) Hematocrit 32.4 % (36.0-47.0) Mean Corpuscular Volume 85 fL (79-100) Mean Corpuscular Hemoglobin 27 pg (25-35) Mean Corpuscular Hemoglobin Concent 32 g/dL (31-37) Red Cell Distribution Width 19.2 % (11.5-14.5) Platelet Count 219 x10^3/uL (140-400) Neutrophils (%) (Auto) 71 % (31-73) Lymphocytes (%) (Auto) 16 % (24-48) Monocytes (%) (Auto) 10 % (0-9) Eosinophils (%) (Auto) 2 % (0-3) Basophils (%) (Auto) 1 % (0-3) Neutrophils # (Auto) 7.2 x10^3/uL (1.8-7.7) Lymphocytes # (Auto) 1.7 x10^3/uL (1.0-4.8) Monocytes # (Auto) 1.0 x10^3/uL (0.0-1.1) Eosinophils # (Auto) 0.2 x10^3/uL (0.0-0.7) Basophils # (Auto) 0.1 x10^3/uL (0.0-0.2) Sodium Level 143 mmol/L (136-145) Potassium Level 3.9 mmol/L (3.5-5.1) Chloride Level 103 mmol/L (98-107) Carbon Dioxide Level 28 mmol/L (21-32) Anion Gap 12 (6-14) Blood Urea Nitrogen 41 mg/dL (7-20) Creatinine 8.5 mg/dL (0.6-1.0) Estimated GFR (Cockcroft-Gault) 5.7 Glucose Level 139 mg/dL (70-99) Calcium Level 10.6 mg/dL (8.5-10.1) Phosphorus Level 5.6 mg/dL (2.6-4.7) Magnesium Level 1.8 mg/dL (1.8-2.4) Laboratory Tests Test 10/13/18 11:10 10/13/18 11:35 10/13/18 13:40 10/13/18 17:20 White Blood Count 10.7 x10^3/uL (4.0-11.0) Red Blood Count 3.69 x10^6/uL (3.50-5.40) Hemoglobin 10.2 g/dL (12.0-15.5) Hematocrit 31.1 % (36.0-47.0) Mean Corpuscular Volume 84 fL (79-100) Mean Corpuscular Hemoglobin 28 pg (25-35) Mean Corpuscular Hemoglobin Concent 33 g/dL (31-37) Red Cell Distribution Width 19.1 % (11.5-14.5) Platelet Count 215 x10^3/uL (140-400) Neutrophils (%) (Auto) 77 % (31-73) Lymphocytes (%) (Auto) 13 % (24-48) Monocytes (%) (Auto) 9 % (0-9) Eosinophils (%) (Auto) 1 % (0-3) Basophils (%) (Auto) 1 % (0-3) Neutrophils # (Auto) 8.2 x10^3/uL (1.8-7.7) Lymphocytes # (Auto) 1.4 x10^3/uL (1.0-4.8) Monocytes # (Auto) 0.9 x10^3/uL (0.0-1.1) Eosinophils # (Auto) 0.1 x10^3/uL (0.0-0.7) Basophils # (Auto) 0.1 x10^3/uL (0.0-0.2) Prothrombin Time 14.4 SEC (11.7-14.0) Prothromb Time International Ratio 1.2 (0.8-1.1) Sodium Level 142 mmol/L (136-145) Potassium Level 3.7 mmol/L (3.5-5.1) Chloride Level 102 mmol/L (98-107) Carbon Dioxide Level 31 mmol/L (21-32) Anion Gap 9 (6-14) Blood Urea Nitrogen 27 mg/dL (7-20) Creatinine 5.8 mg/dL (0.6-1.0) Estimated GFR (Cockcroft-Gault) 8.9 BUN/Creatinine Ratio 5 (6-20) Glucose Level 100 mg/dL (70-99) Calcium Level 9.7 mg/dL (8.5-10.1) Magnesium Level 1.8 mg/dL (1.8-2.4) Total Bilirubin 0.9 mg/dL (0.2-1.0) Aspartate Amino Transf (AST/SGOT) 16 U/L (15-37) Alanine Aminotransferase (ALT/SGPT) 11 U/L (14-59) Alkaline Phosphatase 89 U/L (46-116) Creatine Kinase 46 U/L (26-192) Troponin I Quantitative 0.035 ng/mL (0.000-0.055) 0.063 ng/mL (0.000-0.055) 0.174 ng/mL (0.000-0.055) WL-Spe-C-Type Natriuretic Peptide > 65593 pg/mL (0-124) Total Protein 7.5 g/dL (6.4-8.2) Albumin 3.0 g/dL (3.4-5.0) Albumin/Globulin Ratio 0.7 (1.0-1.7) Triglycerides Level 87 mg/dL (0-150) Cholesterol Level 129 mg/dL (0-200) LDL Cholesterol, Calculated 70 mg/dL (0-100) VLDL Cholesterol, Calculated 17 mg/dL (0-40) Non-HDL Cholesterol Calculated 87 mg/dL (0-129) HDL Cholesterol 42 mg/dL (40-60) Cholesterol/HDL Ratio 3.1 Lipase 133 U/L (73-393) Test 10/13/18 21:27 10/14/18 09:00 Glucose (Fingerstick) 145 mg/dL (70-99) White Blood Count 10.2 x10^3/uL (4.0-11.0) Red Blood Count 3.80 x10^6/uL (3.50-5.40) Hemoglobin 10.3 g/dL (12.0-15.5) Hematocrit 32.4 % (36.0-47.0) Mean Corpuscular Volume 85 fL (79-100) Mean Corpuscular Hemoglobin 27 pg (25-35) Mean Corpuscular Hemoglobin Concent 32 g/dL (31-37) Red Cell Distribution Width 19.2 % (11.5-14.5) Platelet Count 219 x10^3/uL (140-400) Neutrophils (%) (Auto) 71 % (31-73) Lymphocytes (%) (Auto) 16 % (24-48) Monocytes (%) (Auto) 10 % (0-9) Eosinophils (%) (Auto) 2 % (0-3) Basophils (%) (Auto) 1 % (0-3) Neutrophils # (Auto) 7.2 x10^3/uL (1.8-7.7) Lymphocytes # (Auto) 1.7 x10^3/uL (1.0-4.8) Monocytes # (Auto) 1.0 x10^3/uL (0.0-1.1) Eosinophils # (Auto) 0.2 x10^3/uL (0.0-0.7) Basophils # (Auto) 0.1 x10^3/uL (0.0-0.2) Sodium Level 143 mmol/L (136-145) Potassium Level 3.9 mmol/L (3.5-5.1) Chloride Level 103 mmol/L (98-107) Carbon Dioxide Level 28 mmol/L (21-32) Anion Gap 12 (6-14) Blood Urea Nitrogen 41 mg/dL (7-20) Creatinine 8.5 mg/dL (0.6-1.0) Estimated GFR (Cockcroft-Gault) 5.7 Glucose Level 139 mg/dL (70-99) Calcium Level 10.6 mg/dL (8.5-10.1) Phosphorus Level 5.6 mg/dL (2.6-4.7) Magnesium Level 1.8 mg/dL (1.8-2.4) Medications Current Medications Aspirin (Children'S Aspirin) 324 mg 1X ONCE PO Last administered on 10/13/18at 11:31; Start 10/13/18 at 11:00; Stop 10/13/18 at 11:01; Status DC Nitroglycerin (Nitrostat) 0.4 mg PRN Q5MIN PRN SL CP RATING > 1/10 Last administered on 10/13/18at 12:58; Start 10/13/18 at 11:00; Stop 10/13/18 at 13:04; Status DC Nitroglycerin (Nitrostat) 0.4 mg PRN Q5MIN PRN SL CHEST PAIN; Start 10/13/18 at 13:15 Iodixanol (Visipaque 320) 100 ml STK-MED ONCE .ROUTE ; Start 10/13/18 at 13:05; Stop 10/13/18 at 13:05; Status DC Lidocaine HCl (Lidocaine 1% 20ml Vial) 20 ml STK-MED ONCE .ROUTE ; Start 10/13/18 at 13:05; Stop 10/13/18 at 13:05; Status DC Heparin Sodium/ Sodium Chloride 500 ml @ As Directed STK-MED ONCE .ROUTE ; Start 10/13/18 at 13:06; Stop 10/13/18 at 13:06; Status DC Amlodipine Besylate (Norvasc) 10 mg DAILY PO Last administered on 10/14/18at 09:00; Start 10/14/18 at 09:00 Aspirin (Children'S Aspirin) 81 mg DAILY PO Last administered on 10/14/18at 09:00; Start 10/14/18 at 09:00 Atorvastatin Calcium (Lipitor) 40 mg DAILY PO Last administered on 10/14/18at 09:00; Start 10/14/18 at 09:00 Cinacalcet (Sensipar) 30 mg DAILY PO Last administered on 10/14/18 09:00; Start 10/14/18 at 09:00 Glipizide (Glucotrol) 2.5 mg DAILY PO Last administered on 10/14/18at 09:00; Start 10/14/18 at 09:00 Isosorbide Mononitrate (Imdur) 30 mg DAILY PO Last administered on 10/14/18at 09:00; Start 10/14/18 at 09:00 Latanoprost (Xalatan) 1 drop QHS OU Last administered on 10/14/18 09:00; Start 10/13/18 at 21:00 Linagliptin (Tradjenta) 5 mg DAILY PO Last administered on 10/14/18 09:00; Start 10/14/18 at 09:00 Sevelamer Carbonate (Renvela) 800 mg TIDWMEALS PO Last administered on 10/14/18at 08:08; Start 10/13/18 at 17:00 Sodium Bicarbonate (Sodium Bicarbonate) 650 mg BID PO Last administered on 10/14/18at 09:00; Start 10/13/18 at 21:00 Ketorolac Tromethamine (Acular) 1 drop DAILY OU ; Start 10/13/18 at 16:00 Budesonide (Pulmicort) 0.5 mg RTBID NEB Last administered on 10/14/18at 07:21; Start 10/13/18 at 20:00 Non-Formulary Medication (Difluprednate (Durezol)) 1 ml TID OU ; Start 10/13/18 at 21:00; Stop 10/14/18 at 07:30; Status DC Metoprolol Succinate (Toprol Xl) 50 mg DAILY PO Last administered on 10/14/18at 09:00; Start 10/14/18 at 09:00 Albuterol Sulfate (Ventolin Neb Soln) 2.5 mg RTQID NEB Last administered on 10/14/18at 07:21; Start 10/13/18 at 16:00 Hydralazine HCl (Apresoline Inj) 10 mg PRN Q4HRS PRN IVP ELEVATED BP, SEE COMMENTS Last administered on 10/14/18at 06:23; Start 10/13/18 at 16:45 Metoprolol Tartrate (Lopressor) 50 mg 1X ONCE PO Last administered on 10/13/18at 21:17; Start 10/13/18 at 20:30; Stop 10/13/18 at 20:31; Status DC Isosorbide Mononitrate (Imdur) 30 mg 1X ONCE PO Last administered on 10/13/18at 21:17; Start 10/13/18 at 20:30; Stop 10/13/18 at 20:31; Status DC Ondansetron HCl (Zofran) 4 mg PRN Q6HRS PRN IV NAUSEA/VOMITING 1ST CHOICE Last administered on 10/14/18at 06:24; Start 10/14/18 at 06:15 Guaifenesin (Robitussin) 200 mg PRN Q4HRS PRN PO COUGH 1ST CHOICE; Start 10/14/18 at 06:15 Dexamethasone (Maxidex) 1 drop TID OU Last administered on 10/14/18at 09:00; Start 10/14/18 at 09:00 Active Scripts Active Reported Sensipar (Cinacalcet Hcl) 30 Mg Tablet 30 Mg PO DAILY Durezol (Difluprednate) 5 Ml Drops 5 Ml OP TID Bromsite (Bromfenac Sodium) 5 Ml Drops 5 Ml OP DAILY Latanoprost 2.5 Ml Drops 1 Drop EACHEYE QHS Isosorbide Mononitrate Er (Isosorbide Mononitrate) 30 Mg Tab.er.24h 30 Mg PO DAILY Symbicort 160-4.5 Mcg Inhaler (Budesonide/Formoterol Fumarate) 10.2 Gm Hfa .aer.ad 2 Puff IH BID Aspirin 81 Mg Tab.chew 1 Tab PO DAILY Renvela (Sevelamer Carbonate) 800 Mg Tablet 800 Mg PO TIDWMEALS Glipizide 5 Mg Tablet 2.5 Mg PO DAILY Tradjenta (Linagliptin) 5 Mg Tablet 1 Tab PO DAILY Jacquie-Debbi Tablet (Folic Acid/Vitamin B Comp W-C) 0.8 Mg Tablet 0.8 Mg PO DAILY Norvasc (Amlodipine Besylate) 10 Mg Tablet 1 Tab PO DAILY Sodium Bicarbonate 650 Mg Tablet 1 Tab PO BID Toprol Xl (Metoprolol Succinate) 50 Mg Tab.er.24h 1 Tab PO DAILY Atorvastatin Calcium 40 Mg Tablet 1 Tab PO DAILY Vitals/I & O Vital Sign - Last 24 Hours 8/2010/13/18 10/13/18 10/13/18 11:17 11:31 11:45 12:15 Temp 98.7 98.7 Pulse 82 76 76 90 Resp 18 18 18 B/P (MAP) 198/86 (123) 201/81 198/84 (122) 188/81 (116) Pulse Ox 97 97 96 O2 Delivery Room Air Room Air Room Air 10/13/18 10/13/18 10/13/18 10/13/18 12:45 12:58 13:15 13:45 Pulse 76 95 76 Resp 18 18 B/P (MAP) 187/81 (116) 208/88 164/68 (100) Pulse Ox 98 97 O2 Delivery Room Air Room Air Room Air 10/13/18 10/13/18 10/13/18 10/13/18 13:45 14:00 15:00 16:00 Temp 97.9 97.9 Pulse 82 82 78 78 Resp 18 20 18 20 B/P (MAP) 168/75 (106) 192/71 (111) 183/80 (114) 163/56 (91) Pulse Ox 96 98 96 95 O2 Delivery Room Air Room Air Room Air Room Air 10/13/18 10/13/18 10/13/18 10/13/18 16:00 17:00 18:00 19:00 Pulse 76 75 80 Resp 16 18 18 B/P (MAP) 171/53 (92) 147/66 (93) 156/100 (118) Pulse Ox 97 97 96 O2 Delivery Room Air Room Air Room Air Room Air 10/13/18 10/13/18 10/13/18 10/13/18 20:00 20:00 20:36 21:00 Temp 99.1 99.1 Pulse 80 82 Resp 18 22 B/P (MAP) 134/88 (103) 145/87 (106) Pulse Ox 96 97 95 O2 Delivery Room Air Room Air Room Air Room Air 10/13/18 10/13/18 10/13/18 10/13/18 21:17 21:17 22:00 23:00 Pulse 82 82 90 87 Resp 18 20 B/P (MAP) 145/87 145/87 131/76 (94) 165/70 (101) Pulse Ox 99 100 O2 Delivery Nasal Cannula Nasal Cannula O2 Flow Rate 2.0 2.0 8/20/19 10/13/18 10/14/18 10/14/18 23:59 23:59 02:00 02:04 Temp 99.0 99.0 Pulse 70 75 75 Resp 20 B/P (MAP) 147/50 (82) 180/60 (100) 180/60 Pulse Ox 99 100 O2 Delivery Nasal Cannula Room Air Nasal Cannula O2 Flow Rate 2.0 2.0 10/14/18 10/14/18 10/14/18 10/14/18 02:14 03:00 04:00 04:00 Temp 99.0 99.0 Pulse 76 88 86 Resp 22 B/P (MAP) 169/71 (103) 151/71 (97) 174/65 (101) Pulse Ox 100 100 98 O2 Delivery Nasal Cannula Nasal Cannula Nasal Cannula Room Air O2 Flow Rate 2.0 2.0 2.0 10/14/18 10/14/18 10/14/18 10/14/18 05:00 06:00 06:23 06:25 Pulse 82 84 87 83 Resp B/P (MAP) 158/79 (105) 172/73 (106) 172/73 153/60 (91) Pulse Ox 97 98 100 O2 Delivery Room Air Room Air Nasal Cannula O2 Flow Rate 2.0 10/14/18 10/14/18 10/14/18 10/14/18 07:25 08:00 08:00 09:00 Temp 98.1 98.1 Pulse 90 89 Resp B/P (MAP) 131/55 (80) 166/61 (96) Pulse Ox 97 95 94 O2 Delivery Nasal Cannula Room Air Room Air Room Air O2 Flow Rate 2.0 10/14/18 10/14/18 10/14/18 09:00 09:00 09:00 Pulse 80 86 80 B/P (MAP) 131/55 131/55 131/55 Intake and Output 10/13/18 10/13/18 10/14/18 14:59 22:59 06:59 Intake Total 240 ml 440 ml Output Total 1 ml 2 ml Balance 239 ml 438 ml ALEA SWIFT MD Oct 14, 2018 10:43
--- NOTE | 2018-10-14 10:59 | PDOC2 ---
CONSULT Date of Consult Date of Consult DATE: 10/14/18 TIME: 10:46 Reason for Consult Reason for Consult: ESRD Identification/Chief Complaint Chief Complaint No complaints currently, states wants to go home Source Source: Chart review, Patient History of Present Illness Reason for Visit: Pt is a 63 yo AAF ESRD on HD TTS under the care of Dr. Miller. She was brought to the ER by EMS because of chest pain that resolved at arrival to ER. She reports she started having CP after completing her HD treatment yesterday as OP In the ER she developed another episode of chest pain after walking to the bathroom and rated her pain 10 over 10. EKG showed increase of ST elevation in anteroseptal leads. Code STEMI was activated , Chest pain resolved after 1 dose of nitroglycerin. Currently pt denies any complaints. No CP or SOB , states she wants to go home and will go for HD tomorrow per her schedule . She has been on HD for 5 years. Denies any F/C. No N/V/D . NO SOB Past Medical History Cardiovascular: AFIB, CAD, CHF, HTN, Hyperlipidemia, Aortic stenosis (s/p TAVT ) Pulmonary: COPD, Other (XOCHILT) CENTRAL NERVOUS SYSTEM: Periperal neuropathy GI: No pertinent hx Heme/Onc: Anemia NOS, Other (DVT ) Musculoskeletal: Osteoarthritis, Other (DDD) Renal/: Chronic renal failure Endocrine: Diabetes Past Surgical History Past Surgical History: Hernia Repair Family History Family History: Cancer Social History ALCOHOL: none Drugs: None Current Problem List Problem List Problems Medical Problems: (1) Accelerated hypertension Status: Chronic (2) Acute chest pain Status: Acute (3) Acute on chronic systolic (congestive) heart failure Status: Acute (4) Anemia Status: Acute (5) DM2 (diabetes mellitus, type 2) Status: Chronic (6) End stage renal disease on dialysis Status: Acute (7) HLD (hyperlipidemia) Status: Chronic (8) LBBB (left bundle branch block) Status: Chronic Current Medications Current Medications Current Medications Aspirin (Children'S Aspirin) 324 mg 1X ONCE PO Last administered on 10/13/18at 11:31; Start 10/13/18 at 11:00; Stop 10/13/18 at 11:01; Status DC Nitroglycerin (Nitrostat) 0.4 mg PRN Q5MIN PRN SL CP RATING > 1/10 Last administered on 10/13/18at 12:58; Start 10/13/18 at 11:00; Stop 10/13/18 at 13:04; Status DC Nitroglycerin (Nitrostat) 0.4 mg PRN Q5MIN PRN SL CHEST PAIN; Start 10/13/18 at 13:15 Iodixanol (Visipaque 320) 100 ml STK-MED ONCE .ROUTE ; Start 10/13/18 at 13:05; Stop 10/13/18 at 13:05; Status DC Lidocaine HCl (Lidocaine 1% 20ml Vial) 20 ml STK-MED ONCE .ROUTE ; Start 10/13/18 at 13:05; Stop 10/13/18 at 13:05; Status DC Heparin Sodium/ Sodium Chloride 500 ml @ As Directed STK-MED ONCE .ROUTE ; Start 10/13/18 at 13:06; Stop 10/13/18 at 13:06; Status DC Amlodipine Besylate (Norvasc) 10 mg DAILY PO Last administered on 10/14/18at 09:00; Start 10/14/18 at 09:00 Aspirin (Children'S Aspirin) 81 mg DAILY PO Last administered on 10/14/18at 09:00; Start 10/14/18 at 09:00 Atorvastatin Calcium (Lipitor) 40 mg DAILY PO Last administered on 10/14/18at 09:00; Start 10/14/18 at 09:00 Cinacalcet (Sensipar) 30 mg DAILY PO Last administered on 10/14/18at 09:00; Start 10/14/18 at 09:00 Glipizide (Glucotrol) 2.5 mg DAILY PO Last administered on 10/14/18at 09:00; Start 10/14/18 at 09:00 Isosorbide Mononitrate (Imdur) 30 mg DAILY PO Last administered on 10/14/18at 09:00; Start 10/14/18 at 09:00 Latanoprost (Xalatan) 1 drop QHS OU Last administered on 10/14/18at 09:00; Start 10/13/18 at 21:00 Linagliptin (Tradjenta) 5 mg DAILY PO Last administered on 10/14/18at 09:00; Start 10/14/18 at 09:00 Sevelamer Carbonate (Renvela) 800 mg TIDWMEALS PO Last administered on 10/14/18 08:08; Start 10/13/18 at 17:00 Sodium Bicarbonate (Sodium Bicarbonate) 650 mg BID PO Last administered on 10/14/18at 09:00; Start 10/13/18 at 21:00 Ketorolac Tromethamine (Acular) 1 drop DAILY OU ; Start 10/13/18 at 16:00 Budesonide (Pulmicort) 0.5 mg RTBID NEB Last administered on 10/14/18at 07:21; Start 10/13/18 at 20:00 Non-Formulary Medication (Difluprednate (Durezol)) 1 ml TID OU ; Start 10/13/18 at 21:00; Stop 10/14/18 at 07:30; Status DC Metoprolol Succinate (Toprol Xl) 50 mg DAILY PO Last administered on 10/14/18 09:00; Start 10/14/18 at 09:00 Albuterol Sulfate (Ventolin Neb Soln) 2.5 mg RTQID NEB Last administered on 10/14/18at 07:21; Start 10/13/18 at 16:00 Hydralazine HCl (Apresoline Inj) 10 mg PRN Q4HRS PRN IVP ELEVATED BP, SEE COMMENTS Last administered on 10/14/18at 06:23; Start 10/13/18 at 16:45 Metoprolol Tartrate (Lopressor) 50 mg 1X ONCE PO Last administered on 10/13/18at 21:17; Start 10/13/18 at 20:30; Stop 10/13/18 at 20:31; Status DC Isosorbide Mononitrate (Imdur) 30 mg 1X ONCE PO Last administered on 10/13/18at 21:17; Start 10/13/18 at 20:30; Stop 10/13/18 at 20:31; Status DC Ondansetron HCl (Zofran) 4 mg PRN Q6HRS PRN IV NAUSEA/VOMITING 1ST CHOICE Last administered on 10/14/18at 06:24; Start 10/14/18 at 06:15 Guaifenesin (Robitussin) 200 mg PRN Q4HRS PRN PO COUGH 1ST CHOICE; Start 10/14/18 at 06:15 Dexamethasone (Maxidex) 1 drop TID OU Last administered on 8/21/19at 09:00; Start 10/14/18 at 09:00 Active Scripts Active Nitrostat (Nitroglycerin) 0.4 Mg Tab.subl 0.4 Mg SL PRN Q5MIN PRN 20 Days Reported Sensipar (Cinacalcet Hcl) 30 Mg Tablet 30 Mg PO DAILY Durezol (Difluprednate) 5 Ml Drops 5 Ml OP TID Bromsite (Bromfenac Sodium) 5 Ml Drops 5 Ml OP DAILY Latanoprost 2.5 Ml Drops 1 Drop EACHEYE QHS Isosorbide Mononitrate Er (Isosorbide Mononitrate) 30 Mg Tab.er.24h 30 Mg PO DAILY Symbicort 160-4.5 Mcg Inhaler (Budesonide/Formoterol Fumarate) 10.2 Gm Hfa.aer.ad 2 Puff IH BID Aspirin 81 Mg Tab.chew 1 Tab PO DAILY Renvela (Sevelamer Carbonate) 800 Mg Tablet 800 Mg PO TIDWMEALS Glipizide 5 Mg Tablet 2.5 Mg PO DAILY Tradjenta (Linagliptin) 5 Mg Tablet 1 Tab PO DAILY Jacquie-Debbi Tablet (Folic Acid/Vitamin B Comp W-C) 0.8 Mg Tablet 0.8 Mg PO DAILY Norvasc (Amlodipine Besylate) 10 Mg Tablet 1 Tab PO DAILY Sodium Bicarbonate 650 Mg Tablet 1 Tab PO BID Toprol Xl (Metoprolol Succinate) 50 Mg Tab.er.24h 1 Tab PO DAILY Atorvastatin Calcium 40 Mg Tablet 1 Tab PO DAILY Allergies Allergies: Coded Allergies: Iodine and Iodide Containing Produc (Verified Allergy, Severe, swells up & itches, 02/13/18) shellfish derived (Verified Allergy, Intermediate, "SEAFOOD", 02/13/18) ROS Review of System Per HPI Physical Exam Physical Exam GEN: NAD HEEN: OM moist NECK: Supple CVS: RRR RESP: CTa, No Acc. Muscle Use GI: Non Tender, obese :No CVA tenderness, No Suprapubic Tenderness NEURO- Grossly normal SKIN No rash EXT : No LE edema, Rt Forearm AVG Vital Signs Vital Signs Date Time Temp Pulse Resp B/P (MAP) Pulse Ox O2 Delivery O2 Flow Rate FiO2 10/14/18 09:00 80 131/55 10/14/18 09:00 20 94 Room Air 8/21/19 08:00 98.1 98.1 10/14/18 07:25 2.0 Assessment & Plan ESRD- On HD TTS @ [facility] under Dr. Miller Last HD yesterday without any problems during the treatment E-Lytes and acid base stable, Clinically no e/o Vol Overload Currently no emergent indication for HD Chest pain - Cariology Consulted Known CAD Combined systolic and diastolic heart failure- Mild, EF 40% at 2 months ago. Currently Compensated TAVR - placed at Accelerated hypertension - on meds Cardiology managing Diabetes mellitus Sec HyperPTH- On Cinacalcet (Home med) Discussed with Pt and RN Labs Labs Laboratory Tests Test 10/13/18 11:10 10/13/18 11:35 10/13/18 13:40 10/13/18 17:20 White Blood Count 10.7 x10^3/uL (4.0-11.0) Red Blood Count 3.69 x10^6/uL (3.50-5.40) Hemoglobin 10.2 g/dL (12.0-15.5) Hematocrit 31.1 % (36.0-47.0) Mean Corpuscular Volume 84 fL (79-100) Mean Corpuscular Hemoglobin 28 pg (25-35) Mean Corpuscular Hemoglobin Concent 33 g/dL (31-37) Red Cell Distribution Width 19.1 % (11.5-14.5) Platelet Count 215 x10^3/uL (140-400) Neutrophils (%) (Auto) 77 % (31-73) Lymphocytes (%) (Auto) 13 % (24-48) Monocytes (%) (Auto) 9 % (0-9) Eosinophils (%) (Auto) 1 % (0-3) Basophils (%) (Auto) 1 % (0-3) Neutrophils # (Auto) 8.2 x10^3/uL (1.8-7.7) Lymphocytes # (Auto) 1.4 x10^3/uL (1.0-4.8) Monocytes # (Auto) 0.9 x10^3/uL (0.0-1.1) Eosinophils # (Auto) 0.1 x10^3/uL (0.0-0.7) Basophils # (Auto) 0.1 x10^3/uL (0.0-0.2) Prothrombin Time 14.4 SEC (11.7-14.0) Prothromb Time International Ratio 1.2 (0.8-1.1) Sodium Level 142 mmol/L (136-145) Potassium Level 3.7 mmol/L (3.5-5.1) Chloride Level 102 mmol/L (98-107) Carbon Dioxide Level 31 mmol/L (21-32) Anion Gap 9 (6-14) Blood Urea Nitrogen 27 mg/dL (7-20) Creatinine 5.8 mg/dL (0.6-1.0) Estimated GFR (Cockcroft-Gault) 8.9 BUN/Creatinine Ratio 5 (6-20) Glucose Level 100 mg/dL (70-99) Calcium Level 9.7 mg/dL (8.5-10.1) Magnesium Level 1.8 mg/dL (1.8-2.4) Total Bilirubin 0.9 mg/dL (0.2-1.0) Aspartate Amino Transf (AST/SGOT) 16 U/L (15-37) Alanine Aminotransferase (ALT/SGPT) 11 U/L (14-59) Alkaline Phosphatase 89 U/L (46-116) Creatine Kinase 46 U/L (26-192) Troponin I Quantitative 0.035 ng/mL (0.000-0.055) 0.063 ng/mL (0.000-0.055) 0.174 ng/mL (0.000-0.055) JZ-[id number]-Type Natriuretic Peptide > 64951 pg/mL (0-124) Total Protein 7.5 g/dL (6.4-8.2) Albumin 3.0 g/dL (3.4-5.0) Albumin/Globulin Ratio 0.7 (1.0-1.7) Triglycerides Level 87 mg/dL (0-150) Cholesterol Level 129 mg/dL (0-200) LDL Cholesterol, Calculated 70 mg/dL (0-100) VLDL Cholesterol, Calculated 17 mg/dL (0-40) Non-HDL Cholesterol Calculated 87 mg/dL (0-129) HDL Cholesterol 42 mg/dL (40-60) Cholesterol/HDL Ratio 3.1 Lipase 133 U/L (73-393) Test 10/13/18 21:27 10/14/18 09:00 Glucose (Fingerstick) 145 mg/dL (70-99) White Blood Count 10.2 x10^3/uL (4.0-11.0) Red Blood Count 3.80 x10^6/uL (3.50-5.40) Hemoglobin 10.3 g/dL (12.0-15.5) Hematocrit 32.4 % (36.0-47.0) Mean Corpuscular Volume 85 fL (79-100) Mean Corpuscular Hemoglobin 27 pg (25-35) Mean Corpuscular Hemoglobin Concent 32 g/dL (31-37) Red Cell Distribution Width 19.2 % (11.5-14.5) Platelet Count 219 x10^3/uL (140-400) Neutrophils (%) (Auto) 71 % (31-73) Lymphocytes (%) (Auto) 16 % (24-48) Monocytes (%) (Auto) 10 % (0-9) Eosinophils (%) (Auto) 2 % (0-3) Basophils (%) (Auto) 1 % (0-3) Neutrophils # (Auto) 7.2 x10^3/uL (1.8-7.7) Lymphocytes # (Auto) 1.7 x10^3/uL (1.0-4.8) Monocytes # (Auto) 1.0 x10^3/uL (0.0-1.1) Eosinophils # (Auto) 0.2 x10^3/uL (0.0-0.7) Basophils # (Auto) 0.1 x10^3/uL (0.0-0.2) Sodium Level 143 mmol/L (136-145) Potassium Level 3.9 mmol/L (3.5-5.1) Chloride Level 103 mmol/L (98-107) Carbon Dioxide Level 28 mmol/L (21-32) Anion Gap 12 (6-14) Blood Urea Nitrogen 41 mg/dL (7-20) Creatinine 8.5 mg/dL (0.6-1.0) Estimated GFR (Cockcroft-Gault) 5.7 Glucose Level 139 mg/dL (70-99) Calcium Level 10.6 mg/dL (8.5-10.1) Phosphorus Level 5.6 mg/dL (2.6-4.7) Magnesium Level 1.8 mg/dL (1.8-2.4) Laboratory Tests Test 10/13/18 11:10 10/13/18 11:35 10/13/18 13:40 10/13/18 17:20 White Blood Count 10.7 x10^3/uL (4.0-11.0) Red Blood Count 3.69 x10^6/uL (3.50-5.40) Hemoglobin 10.2 g/dL (12.0-15.5) Hematocrit 31.1 % (36.0-47.0) Mean Corpuscular Volume 84 fL (79-100) Mean Corpuscular Hemoglobin 28 pg (25-35) Mean Corpuscular Hemoglobin Concent 33 g/dL (31-37) Red Cell Distribution Width 19.1 % (11.5-14.5) Platelet Count 215 x10^3/uL (140-400) Neutrophils (%) (Auto) 77 % (31-73) Lymphocytes (%) (Auto) 13 % (24-48) Monocytes (%) (Auto) 9 % (0-9) Eosinophils (%) (Auto) 1 % (0-3) Basophils (%) (Auto) 1 % (0-3) Neutrophils # (Auto) 8.2 x10^3/uL (1.8-7.7) Lymphocytes # (Auto) 1.4 x10^3/uL (1.0-4.8) Monocytes # (Auto) 0.9 x10^3/uL (0.0-1.1) Eosinophils # (Auto) 0.1 x10^3/uL (0.0-0.7) Basophils # (Auto) 0.1 x10^3/uL (0.0-0.2) Prothrombin Time 14.4 SEC (11.7-14.0) Prothromb Time International Ratio 1.2 (0.8-1.1) Sodium Level 142 mmol/L (136-145) Potassium Level 3.7 mmol/L (3.5-5.1) Chloride Level 102 mmol/L (98-107) Carbon Dioxide Level 31 mmol/L (21-32) Anion Gap 9 (6-14) Blood Urea Nitrogen 27 mg/dL (7-20) Creatinine 5.8 mg/dL (0.6-1.0) Estimated GFR (Cockcroft-Gault) 8.9 BUN/Creatinine Ratio 5 (6-20) Glucose Level 100 mg/dL (70-99) Calcium Level 9.7 mg/dL (8.5-10.1) Magnesium Level 1.8 mg/dL (1.8-2.4) Total Bilirubin 0.9 mg/dL (0.2-1.0) Aspartate Amino Transf (AST/SGOT) 16 U/L (15-37) Alanine Aminotransferase (ALT/SGPT) 11 U/L (14-59) Alkaline Phosphatase 89 U/L (46-116) Creatine Kinase 46 U/L (26-192) Troponin I Quantitative 0.035 ng/mL (0.000-0.055) 0.063 ng/mL (0.000-0.055) 0.174 ng/mL (0.000-0.055) NW-Ebv-G-Type Natriuretic Peptide > 43199 pg/mL (0-124) Total Protein 7.5 g/dL (6.4-8.2) Albumin 3.0 g/dL (3.4-5.0) Albumin/Globulin Ratio 0.7 (1.0-1.7) Triglycerides Level 87 mg/dL (0-150) Cholesterol Level 129 mg/dL (0-200) LDL Cholesterol, Calculated 70 mg/dL (0-100) VLDL Cholesterol, Calculated 17 mg/dL (0-40) Non-HDL Cholesterol Calculated 87 mg/dL (0-129) HDL Cholesterol 42 mg/dL (40-60) Cholesterol/HDL Ratio 3.1 Lipase 133 U/L (73-393) Test 10/13/18 21:27 10/14/18 09:00 Glucose (Fingerstick) 145 mg/dL (70-99) White Blood Count 10.2 x10^3/uL (4.0-11.0) Red Blood Count 3.80 x10^6/uL (3.50-5.40) Hemoglobin 10.3 g/dL (12.0-15.5) Hematocrit 32.4 % (36.0-47.0) Mean Corpuscular Volume 85 fL (79-100) Mean Corpuscular Hemoglobin 27 pg (25-35) Mean Corpuscular Hemoglobin Concent 32 g/dL (31-37) Red Cell Distribution Width 19.2 % (11.5-14.5) Platelet Count 219 x10^3/uL (140-400) Neutrophils (%) (Auto) 71 % (31-73) Lymphocytes (%) (Auto) 16 % (24-48) Monocytes (%) (Auto) 10 % (0-9) Eosinophils (%) (Auto) 2 % (0-3) Basophils (%) (Auto) 1 % (0-3) Neutrophils # (Auto) 7.2 x10^3/uL (1.8-7.7) Lymphocytes # (Auto) 1.7 x10^3/uL (1.0-4.8) Monocytes # (Auto) 1.0 x10^3/uL (0.0-1.1) Eosinophils # (Auto) 0.2 x10^3/uL (0.0-0.7) Basophils # (Auto) 0.1 x10^3/uL (0.0-0.2) Sodium Level 143 mmol/L (136-145) Potassium Level 3.9 mmol/L (3.5-5.1) Chloride Level 103 mmol/L (98-107) Carbon Dioxide Level 28 mmol/L (21-32) Anion Gap 12 (6-14) Blood Urea Nitrogen 41 mg/dL (7-20) Creatinine 8.5 mg/dL (0.6-1.0) Estimated GFR (Cockcroft-Gault) 5.7 Glucose Level 139 mg/dL (70-99) Calcium Level 10.6 mg/dL (8.5-10.1) Phosphorus Level 5.6 mg/dL (2.6-4.7) Magnesium Level 1.8 mg/dL (1.8-2.4) Review All relevant outside records, renal labs, imaging studies, telemetry/EKG's were reviewed. CODIE RIVERA MD Oct 14, 2018 10:59
--- NOTE | 2018-10-14 11:45 | PDOC3 ---
Discharge Summary Visit Information Date of Admission: Oct 13, 2018 Date of Discharge: Oct 14, 2018 Admitting Diagnosis: Chest pain Final Diagnosis Problems Medical Problems: (1) Accelerated hypertension Status: Chronic (2) Acute chest pain Status: Acute (3) Acute on chronic systolic (congestive) heart failure Status: Acute (4) Anemia Status: Acute (5) DM2 (diabetes mellitus, type 2) Status: Chronic (6) End stage renal disease on dialysis Status: Acute (7) HLD (hyperlipidemia) Status: Chronic (8) LBBB (left bundle branch block) Status: Chronic Brief Hospital Course Allergies Allergies Coded Allergies Type Severity Reaction Last Updated Verified Iodine and Iodide Containing Produc Allergy Severe swells up & itches 02/13/18 Yes shellfish derived Allergy Intermediate "SEAFOOD" 02/13/18 Yes Vital Signs Vital Signs Date Time Temp Pulse Resp B/P (MAP) Pulse Ox O2 Delivery O2 Flow Rate FiO2 10/14/18 09:00 80 131/55 10/14/18 09:00 20 94 Room Air 10/14/18 08:00 98.1 98.1 10/14/18 07:25 2.0 Lab Results Laboratory Tests Test 10/13/18 11:10 10/13/18 11:35 10/13/18 13:40 10/13/18 17:20 White Blood Count 10.7 x10^3/uL (4.0-11.0) Red Blood Count 3.69 x10^6/uL (3.50-5.40) Hemoglobin 10.2 g/dL (12.0-15.5) Hematocrit 31.1 % (36.0-47.0) Mean Corpuscular Volume 84 fL (79-100) Mean Corpuscular Hemoglobin 28 pg (25-35) Mean Corpuscular Hemoglobin Concent 33 g/dL (31-37) Red Cell Distribution Width 19.1 % (11.5-14.5) Platelet Count 215 x10^3/uL (140-400) Neutrophils (%) (Auto) 77 % (31-73) Lymphocytes (%) (Auto) 13 % (24-48) Monocytes (%) (Auto) 9 % (0-9) Eosinophils (%) (Auto) 1 % (0-3) Basophils (%) (Auto) 1 % (0-3) Neutrophils # (Auto) 8.2 x10^3/uL (1.8-7.7) Lymphocytes # (Auto) 1.4 x10^3/uL (1.0-4.8) Monocytes # (Auto) 0.9 x10^3/uL (0.0-1.1) Eosinophils # (Auto) 0.1 x10^3/uL (0.0-0.7) Basophils # (Auto) 0.1 x10^3/uL (0.0-0.2) Prothrombin Time 14.4 SEC (11.7-14.0) Prothromb Time International Ratio 1.2 (0.8-1.1) Sodium Level 142 mmol/L (136-145) Potassium Level 3.7 mmol/L (3.5-5.1) Chloride Level 102 mmol/L (98-107) Carbon Dioxide Level 31 mmol/L (21-32) Anion Gap 9 (6-14) Blood Urea Nitrogen 27 mg/dL (7-20) Creatinine 5.8 mg/dL (0.6-1.0) Estimated GFR (Cockcroft-Gault) 8.9 BUN/Creatinine Ratio 5 (6-20) Glucose Level 100 mg/dL (70-99) Calcium Level 9.7 mg/dL (8.5-10.1) Magnesium Level 1.8 mg/dL (1.8-2.4) Total Bilirubin 0.9 mg/dL (0.2-1.0) Aspartate Amino Transf (AST/SGOT) 16 U/L (15-37) Alanine Aminotransferase (ALT/SGPT) 11 U/L (14-59) Alkaline Phosphatase 89 U/L (46-116) Creatine Kinase 46 U/L (26-192) Troponin I Quantitative 0.035 ng/mL (0.000-0.055) 0.063 ng/mL (0.000-0.055) 0.174 ng/mL (0.000-0.055) IA-Rvw-H-Type Natriuretic Peptide > 15498 pg/mL (0-124) Total Protein 7.5 g/dL (6.4-8.2) Albumin 3.0 g/dL (3.4-5.0) Albumin/Globulin Ratio 0.7 (1.0-1.7) Triglycerides Level 87 mg/dL (0-150) Cholesterol Level 129 mg/dL (0-200) LDL Cholesterol, Calculated 70 mg/dL (0-100) VLDL Cholesterol, Calculated 17 mg/dL (0-40) Non-HDL Cholesterol Calculated 87 mg/dL (0-129) HDL Cholesterol 42 mg/dL (40-60) Cholesterol/HDL Ratio 3.1 Lipase 133 U/L (73-393) Test 10/13/18 21:27 10/14/18 09:00 Glucose (Fingerstick) 145 mg/dL (70-99) White Blood Count 10.2 x10^3/uL (4.0-11.0) Red Blood Count 3.80 x10^6/uL (3.50-5.40) Hemoglobin 10.3 g/dL (12.0-15.5) Hematocrit 32.4 % (36.0-47.0) Mean Corpuscular Volume 85 fL (79-100) Mean Corpuscular Hemoglobin 27 pg (25-35) Mean Corpuscular Hemoglobin Concent 32 g/dL (31-37) Red Cell Distribution Width 19.2 % (11.5-14.5) Platelet Count 219 x10^3/uL (140-400) Neutrophils (%) (Auto) 71 % (31-73) Lymphocytes (%) (Auto) 16 % (24-48) Monocytes (%) (Auto) 10 % (0-9) Eosinophils (%) (Auto) 2 % (0-3) Basophils (%) (Auto) 1 % (0-3) Neutrophils # (Auto) 7.2 x10^3/uL (1.8-7.7) Lymphocytes # (Auto) 1.7 x10^3/uL (1.0-4.8) Monocytes # (Auto) 1.0 x10^3/uL (0.0-1.1) Eosinophils # (Auto) 0.2 x10^3/uL (0.0-0.7) Basophils # (Auto) 0.1 x10^3/uL (0.0-0.2) Sodium Level 143 mmol/L (136-145) Potassium Level 3.9 mmol/L (3.5-5.1) Chloride Level 103 mmol/L (98-107) Carbon Dioxide Level 28 mmol/L (21-32) Anion Gap 12 (6-14) Blood Urea Nitrogen 41 mg/dL (7-20) Creatinine 8.5 mg/dL (0.6-1.0) Estimated GFR (Cockcroft-Gault) 5.7 Glucose Level 139 mg/dL (70-99) Calcium Level 10.6 mg/dL (8.5-10.1) Phosphorus Level 5.6 mg/dL (2.6-4.7) Magnesium Level 1.8 mg/dL (1.8-2.4) Laboratory Tests Test 10/13/18 13:40 10/13/18 17:20 10/13/18 21:27 10/14/18 09:00 Troponin I Quantitative 0.063 ng/mL (0.000-0.055) 0.174 ng/mL (0.000-0.055) Glucose (Fingerstick) 145 mg/dL (70-99) White Blood Count 10.2 x10^3/uL (4.0-11.0) Red Blood Count 3.80 x10^6/uL (3.50-5.40) Hemoglobin 10.3 g/dL (12.0-15.5) Hematocrit 32.4 % (36.0-47.0) Mean Corpuscular Volume 85 fL (79-100) Mean Corpuscular Hemoglobin 27 pg (25-35) Mean Corpuscular Hemoglobin Concent 32 g/dL (31-37) Red Cell Distribution Width 19.2 % (11.5-14.5) Platelet Count 219 x10^3/uL (140-400) Neutrophils (%) (Auto) 71 % (31-73) Lymphocytes (%) (Auto) 16 % (24-48) Monocytes (%) (Auto) 10 % (0-9) Eosinophils (%) (Auto) 2 % (0-3) Basophils (%) (Auto) 1 % (0-3) Neutrophils # (Auto) 7.2 x10^3/uL (1.8-7.7) Lymphocytes # (Auto) 1.7 x10^3/uL (1.0-4.8) Monocytes # (Auto) 1.0 x10^3/uL (0.0-1.1) Eosinophils # (Auto) 0.2 x10^3/uL (0.0-0.7) Basophils # (Auto) 0.1 x10^3/uL (0.0-0.2) Sodium Level 143 mmol/L (136-145) Potassium Level 3.9 mmol/L (3.5-5.1) Chloride Level 103 mmol/L (98-107) Carbon Dioxide Level 28 mmol/L (21-32) Anion Gap 12 (6-14) Blood Urea Nitrogen 41 mg/dL (7-20) Creatinine 8.5 mg/dL (0.6-1.0) Estimated GFR (Cockcroft-Gault) 5.7 Glucose Level 139 mg/dL (70-99) Calcium Level 10.6 mg/dL (8.5-10.1) Phosphorus Level 5.6 mg/dL (2.6-4.7) Magnesium Level 1.8 mg/dL (1.8-2.4) Brief Hospital Course Ms Lara is a 63 yo F w/ PMHx aortic valve replacement, hypertension, COPD on home O2, diabetes, end-stage renal disease, on dialysis who presents with chest pain. Associated with diaphoresis and nausea. No palpitations, dizziness, or shortness of breath. Pain persisted so she was recommended to go to the ED for further krystyna luation and treatment. Initially code STEMI, but was canceled by Dr. Miguel after further evaluation the of patient and EKG. Pain improved with nitro in ED. No further pain. 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 Troponin 0.063-->0.174. She is chest pain free this morning, feels it was gas pain. Wishes for discharge. Echo performed, discussed with cardiology and nephrology. Septal motion consistent with conduction abnormality. There is global hypokinesis. EF estimated at 35% The aortic valve is not well visualized. TAVR valve in place. Doppler and Color Flow revealed trace tricuspid regurgitation. The PA pressure w as estimated at 39 mmHg. There is a small circumferential pericardial effusion. Chest pain - resolved. Minimally elevated troponin. Known distal LAD disease. Continuing on medical treatment. 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 Ejection fraction of 40% at 2 months ago. Compensated. Continue treatment. TAVR - placed at . Repeat today Accelerated hypertension - on meds Hyperlipidemia - Patient continues on a statin. End-stage renal disease - hemodialysis. Diabetes mellitus Plan for outpatient CT surgery and cardiology f/u. Dialysis outpatient tomorrow as scheduled Greater than 30 minutes spent on discharge. Discharge Information Condition at Discharge: Improved Follow Up: Weeks (1) Disposition/Orders: D/C to Home Scheduled Amlodipine Besylate (Norvasc) 10 Mg Tablet, 1 TAB PO DAILY, #30 Ref 5 (Reported) Entered as Reported by: PRICILLA MUHAMMAD on 07/29/14 1132 Last Action: Continued on 10/13/181540 by MINI MURILLO Aspirin (Aspirin) 81 Mg Tab.chew, 1 TAB PO DAILY for UNKOWN, #30 Ref 3 (Reported) Entered as Reported by: ALMA RODRIGUEZ on 01/29/18 1004 Last Action: Continued on 10/13/181540 by MINI MURILLO Atorvastatin Calcium (Atorvastatin Calcium) 40 Mg Tablet, 1 TAB PO DAILY, #30 Ref 5 (Reported) Entered as Reported by: PRICILLA MUHAMMAD on 07/29/14 1127 Last Action: Continued on 10/13/181540 by MINI MURILLO Bromfenac Sodium (Bromsite) 5 Ml Drops, 5 ML OP DAILY for cataracts, (Reported) Entered as Reported by: NAZANIN PACHECO on 10/13/181522 Last Action: Converted on 10/13/181540 by MINI MURILLO Budesonide/Formoterol Fumarate (Symbicort 160-4.5 Mcg Inhaler) 10.2 Gm Hfa.aer.ad, 2 PUFF IH BID for breathing, #10.6 Ref 3 (Reported) Entered as Reported by: NAZANIN PACHECO on 10/13/181522 Last Action: Converted on 10/13/181540 by MINI MURILLO Cinacalcet Hcl (Sensipar) 30 Mg Tablet, 30 MG PO DAILY for dialysis, (Reported) Entered as Reported by: NAZANIN PACHECO on 10/13/181522 Last Action: Continued on 10/13/181540 by MINI MURILLO Difluprednate (Durezol) 5 Ml Drops, 5 ML OP TID for cataracts, (Reported) Entered as Reported by: NAZANIN PACHECO on 10/13/181522 Last Action: Converted on 10/13/181540 by MINI MURILLO Folic Acid/Vitamin B Comp W-C (Jacquie-Debbi Tablet) 0.8 Mg Tablet, 0.8 MG PO DAILY, (Reported) Entered as Reported by: DIANELYS PUENTES on 05/26/15 1318 Last Action: Reviewed on 10/13/181522 by NAZANIN PACHECO Glipizide (Glipizide) 5 Mg Tablet, 2.5 MG PO DAILY for DIABETES, (Reported) Entered as Reported by: DIANELYS PUENTES on 01/14/18 155 Last Action: Continued on 10/13/181540 by MINI MURILLO Isosorbide Mononitrate (Isosorbide Mononitrate Er) 30 Mg Tab.er.24h, 30 MG PO DA MYRNA for bp, (Reported) Entered as Reported by: NAZANIN PACHECO on 10/13/181522 Last Action: Continued on 10/13/181540 by MINI MURILLO Latanoprost (Latanoprost) 2.5 Ml Drops, 1 DROP EACHEYE QHS for eyes, #7.5 Ref 3 (Reported) Entered as Reported by: NAZANIN PACHECO on 10/13/181522 Last Action: Continued on 10/13/181540 by MINI MURILLO Linagliptin (Tradjenta) 5 Mg Tablet, 1 TAB PO DAILY, #90 Ref 1 (Reported) Entered as Reported by: ISELA MCNEIL on 05/02/17 1046 Last Action: Continued on 10/13/181540 by MINI MURILLO Metoprolol Succinate (Toprol Xl) 50 Mg Tab.er.24h, 1 TAB PO DAILY, #30 Ref 5 (Reported) Entered as Reported by: PRICILLA MUHAMMAD on 07/29/14 1128 Last Action: Converted on 10/13/181540 by MINI MURILLO Sevelamer Carbonate (Renvela) 800 Mg Tablet, 800 MG PO TIDWMEALS for VITAMIN, #2 (Reported) Entered as Reported by: DIANELYS PUENTES on 01/14/181557 Last Action: Continued on 10/13/181540 by MINI MURILLO Sodium Bicarbonate (Sodium Bicarbonate) 650 Mg Tablet, 1 TAB PO BID, #60 Ref 5 (Reported) Entered as Reported by: PRICILLA MUHAMMAD on 07/29/14 1131 Last Action: Continued on 10/13/181540 by MINI GOLDAK Scheduled PRN Nitroglycerin (Nitrostat) 0.4 Mg Tab.subl, 0.4 MG SL PRN Q5MIN PRN for CHEST PAIN for 20 Days, #9 Prescribed by: ALEA SWIFT MD on 10/14/18 1040 Discontinued Medications Clonidine Hcl (Clonidine Hcl) 0.2 Mg Tablet, 1 TAB PO BID, #60 Ref 5 (Reported) Entered as Reported by: PRICILLA MUHAMMAD on 07/29/14 1130 Last Action: Discontinued on 10/13/18 1523 by ALEA RUSHING MD Oct 14, 2018 11:45
--- NOTE | 2018-10-14 12:01 | NUR ---
SS following for discharge planning. SS reviewed pt chart. Pt is from home and is currently on room air. Discharge order on the chart for home with self care.
--- NOTE | 2018-10-14 16:45 | PDOC ---
PROGRESS NOTES Subjective Subjective Patient seen and examined Feeling better Objective Objective Vital Signs Date Time Temp Pulse Resp B/P (MAP) Pulse Ox O2 Delivery O2 Flow Rate FiO2 10/14/18 12:00 97.9 79 20 167/82 (110) 99 Nasal Cannula 2.0 97.9 Intake and Output 10/14/18 06:59 Intake Total 680 ml Output Total 3 ml Balance 677 ml Intake Oral 680 ml Output Urine Total 3 ml Physical Exam Abdomen: Normal bowel sounds Heart: Regular rate General: No acute distress Lungs: Clear to auscultation Assessment Assessment Problems Medical Problems: (1) Accelerated hypertension Status: Chronic (2) Acute chest pain Status: Acute (3) Acute on chronic systolic (congestive) heart failure Status: Acute (4) Anemia Status: Acute (5) DM2 (diabetes mellitus, type 2) Status: Chronic (6) End stage renal disease on dialysis Status: Acute (7) HLD (hyperlipidemia) Status: Chronic (8) LBBB (left bundle branch block) Status: Chronic Chest pain. Now resolved. Minimally elevated troponin. Known distal LAD disease. Continuing on medical treatment. Mild heart failure. Ejection fraction of 35%. Compensated. Continue treatment. AVR placed at [facility]. Appears to have good function on new ECHO. Accelerated hypertension. Adjusting medications as needed. Hyperlipidemia. Patient continues on a statin. End-stage renal disease. As per the renal service. On hemodialysis. Diabetes mellitus. Comment Review of Relevant I have reviewed the following items caroline (where applicable) has been applied. Labs Laboratory Tests Test 10/13/18 11:10 10/13/18 11:35 10/13/18 13:40 10/13/18 17:20 White Blood Count 10.7 x10^3/uL (4.0-11.0) Red Blood Count 3.69 x10^6/uL (3.50-5.40) Hemoglobin 10.2 g/dL (12.0-15.5) Hematocrit 31.1 % (36.0-47.0) Mean Corpuscular Volume 84 fL (79-100) Mean Corpuscular Hemoglobin 28 pg (25-35) Mean Corpuscular Hemoglobin Concent 33 g/dL (31-37) Red Cell Distribution Width 19.1 % (11.5-14.5) Platelet Count 215 x10^3/uL (140-400) Neutrophils (%) (Auto) 77 % (31-73) Lymphocytes (%) (Auto) 13 % (24-48) Monocytes (%) (Auto) 9 % (0-9) Eosinophils (%) (Auto) 1 % (0-3) Basophils (%) (Auto) 1 % (0-3) Neutrophils # (Auto) 8.2 x10^3/uL (1.8-7.7) Lymphocytes # (Auto) 1.4 x10^3/uL (1.0-4.8) Monocytes # (Auto) 0.9 x10^3/uL (0.0-1.1) Eosinophils # (Auto) 0.1 x10^3/uL (0.0-0.7) Basophils # (Auto) 0.1 x10^3/uL (0.0-0.2) Prothrombin Time 14.4 SEC (11.7-14.0) Prothromb Time International Ratio 1.2 (0.8-1.1) Sodium Level 142 mmol/L (136-145) Potassium Level 3.7 mmol/L (3.5-5.1) Chloride Level 102 mmol/L (98-107) Carbon Dioxide Level 31 mmol/L (21-32) Anion Gap 9 (6-14) Blood Urea Nitrogen 27 mg/dL (7-20) Creatinine 5.8 mg/dL (0.6-1.0) Estimated GFR (Cockcroft-Gault) 8.9 BUN/Creatinine Ratio 5 (6-20) Glucose Level 100 mg/dL (70-99) Calcium Level 9.7 mg/dL (8.5-10.1) Magnesium Level 1.8 mg/dL (1.8-2.4) Total Bilirubin 0.9 mg/dL (0.2-1.0) Aspartate Amino Transf (AST/SGOT) 16 U/L (15-37) Alanine Aminotransferase (ALT/SGPT) 11 U/L (14-59) Alkaline Phosphatase 89 U/L (46-116) Creatine Kinase 46 U/L (26-192) Troponin I Quantitative 0.035 ng/mL (0.000-0.055) 0.063 ng/mL (0.000-0.055) 0.174 ng/mL (0.000-0.055) EY-Iku-S-Type Natriuretic Peptide > 96790 pg/mL (0-124) Total Protein 7.5 g/dL (6.4-8.2) Albumin 3.0 g/dL (3.4-5.0) Albumin/Globulin Ratio 0.7 (1.0-1.7) Triglycerides Level 87 mg/dL (0-150) Cholesterol Level 129 mg/dL (0-200) LDL Cholesterol, Calculated 70 mg/dL (0-100) VLDL Cholesterol, Calculated 17 mg/dL (0-40) Non-HDL Cholesterol Calculated 87 mg/dL (0-129) HDL Cholesterol 42 mg/dL (40-60) Cholesterol/HDL Ratio 3.1 Lipase 133 U/L (73-393) Test 10/13/18 21:27 10/14/18 09:00 Glucose (Fingerstick) 145 mg/dL (70-99) White Blood Count 10.2 x10^3/uL (4.0-11.0) Red Blood Count 3.80 x10^6/uL (3.50-5.40) Hemoglobin 10.3 g/dL (12.0-15.5) Hematocrit 32.4 % (36.0-47.0) Mean Corpuscular Volume 85 fL (79-100) Mean Corpuscular Hemoglobin 27 pg (25-35) Mean Corpuscular Hemoglobin Concent 32 g/dL (31-37) Red Cell Distribution Width 19.2 % (11.5-14.5) Platelet Count 219 x10^3/uL (140-400) Neutrophils (%) (Auto) 71 % (31-73) Lymphocytes (%) (Auto) 16 % (24-48) Monocytes (%) (Auto) 10 % (0-9) Eosinophils (%) (Auto) 2 % (0-3) Basophils (%) (Auto) 1 % (0-3) Neutrophils # (Auto) 7.2 x10^3/uL (1.8-7.7) Lymphocytes # (Auto) 1.7 x10^3/uL (1.0-4.8) Monocytes # (Auto) 1.0 x10^3/uL (0.0-1.1) Eosinophils # (Auto) 0.2 x10^3/uL (0.0-0.7) Basophils # (Auto) 0.1 x10^3/uL (0.0-0.2) Sodium Level 143 mmol/L (136-145) Potassium Level 3.9 mmol/L (3.5-5.1) Chloride Level 103 mmol/L (98-107) Carbon Dioxide Level 28 mmol/L (21-32) Anion Gap 12 (6-14) Blood Urea Nitrogen 41 mg/dL (7-20) Creatinine 8.5 mg/dL (0.6-1.0) Estimated GFR (Cockcroft-Gault) 5.7 Glucose Level 139 mg/dL (70-99) Calcium Level 10.6 mg/dL (8.5-10.1) Phosphorus Level 5.6 mg/dL (2.6-4.7) Magnesium Level 1.8 mg/dL (1.8-2.4) Laboratory Tests Test 10/13/18 17:20 10/13/18 21:27 10/14/18 09:00 Troponin I Quantitative 0.174 ng/mL (0.000-0.055) Glucose (Fingerstick) 145 mg/dL (70-99) White Blood Count 10.2 x10^3/uL (4.0-11.0) Red Blood Count 3.80 x10^6/uL (3.50-5.40) Hemoglobin 10.3 g/dL (12.0-15.5) Hematocrit 32.4 % (36.0-47.0) Mean Corpuscular Volume 85 fL (79-100) Mean Corpuscular Hemoglobin 27 pg (25-35) Mean Corpuscular Hemoglobin Concent 32 g/dL (31-37) Red Cell Distribution Width 19.2 % (11.5-14.5) Platelet Count 219 x10^3/uL (140-400) Neutrophils (%) (Auto) 71 % (31-73) Lymphocytes (%) (Auto) 16 % (24-48) Monocytes (%) (Auto) 10 % (0-9) Eosinophils (%) (Auto) 2 % (0-3) Basophils (%) (Auto) 1 % (0-3) Neutrophils # (Auto) 7.2 x10^3/uL (1.8-7.7) Lymphocytes # (Auto) 1.7 x10^3/uL (1.0-4.8) Monocytes # (Auto) 1.0 x10^3/uL (0.0-1.1) Eosinophils # (Auto) 0.2 x10^3/uL (0.0-0.7) Basophils # (Auto) 0.1 x10^3/uL (0.0-0.2) Sodium Level 143 mmol/L (136-145) Potassium Level 3.9 mmol/L (3.5-5.1) Chloride Level 103 mmol/L (98-107) Carbon Dioxide Level 28 mmol/L (21-32) Anion Gap 12 (6-14) Blood Urea Nitrogen 41 mg/dL (7-20) Creatinine 8.5 mg/dL (0.6-1.0) Estimated GFR (Cockcroft-Gault) 5.7 Glucose Level 139 mg/dL (70-99) Calcium Level 10.6 mg/dL (8.5-10.1) Phosphorus Level 5.6 mg/dL (2.6-4.7) Magnesium Level 1.8 mg/dL (1.8-2.4) Medications Current Medications Aspirin (Children'S Aspirin) 324 mg 1X ONCE PO Last administered on 10/13/18at 11:31; Start 10/13/18 at 11:00; Stop 10/13/18 at 11:01; Status DC Nitroglycerin (Nitrostat) 0.4 mg PRN Q5MIN PRN SL CP RATING > 1/10 Last administered on 10/13/18at 12:58; Start 10/13/18 at 11:00; Stop 10/13/18 at 13:04; Status DC Nitroglycerin (Nitrostat) 0.4 mg PRN Q5MIN PRN SL CHEST PAIN; Start 10/13/18 at 13:15; Stop 10/14/18 at 13:46; Status DC Iodixanol (Visipaque 320) 100 ml STK-MED ONCE .ROUTE ; Start 10/13/18 at 13:05; Stop 10/13/18 at 13:05; Status DC Lidocaine HCl (Lidocaine 1% 20ml Vial) 20 ml STK-MED ONCE .ROUTE ; Start 10/13/18 at 13:05; Stop 10/13/18 at 13:05; Status DC Heparin Sodium/ Sodium Chloride 500 ml @ As Directed STK-MED ONCE .ROUTE ; Start 10/13/18 at 13:06; Stop 10/13/18 at 13:06; Status DC Amlodipine Besylate (Norvasc) 10 mg DAILY PO Last administered on 10/14/18at 09:00; Start 10/14/18 at 09:00; Stop 10/14/18 at 13:46; Status DC Aspirin (Children'S Aspirin) 81 mg DAILY PO Last administered on 10/14/18 09:00; Start 10/14/18 at 09:00; Stop 10/14/18 at 13:46; Status DC Atorvastatin Calcium (Lipitor) 40 mg DAILY PO Last administered on 10/14/18at 09:00; Start 10/14/18 at 09:00; Stop 10/14/18 at 13:46; Status DC Cinacalcet (Sensipar) 30 mg DAILY PO Last administered on 10/14/18 09:00; Start 10/14/18 at 09:00; Stop 10/14/18 at 13:46; Status DC Glipizide (Glucotrol) 2.5 mg DAILY PO Last administered on 10/14/18at 09:00; Start 10/14/18 at 09:00; Stop 10/14/18 at 13:46; Status DC Isosorbide Mononitrate (Imdur) 30 mg DAILY PO Last administered on 10/14/18 09:00; Start 10/14/18 at 09:00; Stop 10/14/18 at 13:46; Status DC Latanoprost (Xalatan) 1 drop QHS OU Last administered on 10/14/18at 09:00; Start 10/13/18 at 21:00; Stop 10/14/18 at 13:46; Status DC Linagliptin (Tradjenta) 5 mg DAILY PO Last administered on 10/14/18 09:00; Start 10/14/18 at 09:00; Stop 10/14/18 at 13:46; Status DC Sevelamer Carbonate (Renvela) 800 mg TIDWMEALS PO Last administered on 10/14/18 08:08; Start 10/13/18 at 17:00; Stop 10/14/18 at 13:46; Status DC Sodium Bicarbonate (Sodium Bicarbonate) 650 mg BID PO Last administered on 10/14/18at 09:00; Start 10/13/18 at 21:00; Stop 10/14/18 at 13:46; Status DC Ketorolac Tromethamine (Acular) 1 drop DAILY OU ; Start 10/13/18 at 16:00; Stop 10/14/18 at 13:46; Status DC Budesonide (Pulmicort) 0.5 mg RTBID NEB Last administered on 10/14/18at 07:21; Start 10/13/18 at 20:00; Stop 10/14/18 at 13:46; Status DC Non-Formulary Medication (Difluprednate (Durezol)) 1 ml TID OU ; Start 10/13/18 at 21:00; Stop 10/14/18 at 07:30; Status DC Metoprolol Succinate (Toprol Xl) 50 mg DAILY PO Last administered on 10/14/18at 09:00; Start 10/14/18 at 09:00; Stop 10/14/18 at 13:46; Status DC Albuterol Sulfate (Ventolin Neb Soln) 2.5 mg RTQID NEB Last administered on 10/14/18at 11:46; Start 10/13/18 at 16:00; Stop 10/14/18 at 13:46; Status DC Hydralazine HCl (Apresoline Inj) 10 mg PRN Q4HRS PRN IVP ELEVATED BP, SEE COMMENTS Last administered on 10/14/18at 06:23; Start 10/13/18 at 16:45; Stop 10/14/18 at 13:46; Status DC Metoprolol Tartrate (Lopressor) 50 mg 1X ONCE PO Last administered on 10/13/18at 21:17; Start 10/13/18 at 20:30; Stop 10/13/18 at 20:31; Status DC Isosorbide Mononitrate (Imdur) 30 mg 1X ONCE PO Last administered on 10/13/18at 21:17; Start 10/13/18 at 20:30; Stop 10/13/18 at 20:31; Status DC Ondansetron HCl (Zofran) 4 mg PRN Q6HRS PRN IV NAUSEA/VOMITING 1ST CHOICE Last administered on 10/14/18at 06:24; Start 10/14/18 at 06:15; Stop 10/14/18 at 13:46; Status DC Guaifenesin (Robitussin) 200 mg PRN Q4HRS PRN PO COUGH 1ST CHOICE; Start 10/14/18 at 06:15; Stop 10/14/18 at 13:46; Status DC Dexamethasone (Maxidex) 1 drop TID OU Last administered on 10/14/18at 09:00; Start 10/14/18 at 09:00; Stop 10/14/18 at 13:46; Status DC Active Scripts Active Nitrostat (Nitroglycerin) 0.4 Mg Tab.subl 0.4 Mg SL PRN Q5MIN PRN 20 Days Reported Sensipar (Cinacalcet Hcl) 30 Mg Tablet 30 Mg PO DAILY Durezol (Difluprednate) 5 Ml Drops 5 Ml OP TID Bromsite (Bromfenac Sodium) 5 Ml Drops 5 Ml OP DAILY Latanoprost 2.5 Ml Drops 1 Drop EACHEYE QHS Isosorbide Mononitrate Er (Isosorbide Mononitrate) 30 Mg Tab.er.24h 30 Mg PO DAILY Symbicort 160-4.5 Mcg Inhaler (Budesonide/Formoterol Fumarate) 10.2 Gm Hfa.aer.ad 2 Puff IH BID Aspirin 81 Mg Tab.chew 1 Tab PO DAILY Renvela (Sevelamer Carbonate) 800 Mg Tablet 800 Mg PO TIDWMEALS Glipizide 5 Mg Tablet 2.5 Mg PO DAILY Tradjenta (Linagliptin) 5 Mg Tablet 1 Tab PO DAILY Jacquie-Debbi Tablet (Folic Acid/Vitamin B Comp W-C) 0.8 Mg Tablet 0.8 Mg PO DAILY Norvasc (Amlodipine Besylate) 10 Mg Tablet 1 Tab PO DAILY Sodium Bicarbonate 650 Mg Tablet 1 Tab PO BID Toprol Xl (Metoprolol Succinate) 50 Mg Tab.er.24h 1 Tab PO DAILY Atorvastatin Calcium 40 Mg Tablet 1 Tab PO DAILY Vitals/I & O Vital Sign - Last 24 Hours 10/13/18 10/13/18 10/13/18 10/13/18 17:00 18:00 19:00 20:00 Temp 99.1 99.1 Pulse 76 75 80 80 Resp 16 18 18 18 B/P (MAP) 171/53 (92) 147/66 (93) 156/100 (118) 134/88 (103) Pulse Ox 97 97 96 96 O2 Delivery Room Air Room Air Room Air Room Air 10/13/18 10/13/18 10/13/18 10/13/18 20:00 20:36 21:00 21:17 Pulse 82 82 Resp 22 B/P (MAP) 145/87 (106) 145/87 Pulse Ox 97 95 O2 Delivery Room Air Room Air Room Air 10/13/18 10/13/18 10/13/18 10/13/18 21:17 22:00 23:00 23:59 Temp 99.0 99.0 Pulse 82 90 87 70 Resp 18 20 24 B/P (MAP) 145/87 131/76 (94) 165/70 (101) 147/50 (82) Pulse Ox 99 100 99 O2 Delivery Nasal Cannula Nasal Cannula Nasal Cannula O2 Flow Rate 2.0 2.0 2.0 10/13/18 10/14/18 10/14/18 10/14/18 23:59 02:00 02:04 02:14 Pulse 75 75 76 Resp 20 20 B/P (MAP) 180/60 (100) 180/60 169/71 (103) Pulse Ox 100 100 O2 Delivery Room Air Nasal Cannula Nasal Cannula O2 Flow Rate 2.0 2.0 10/14/18 10/14/18 10/14/18 10/14/18 03:00 04:00 04:00 05:00 Temp 99.0 99.0 Pulse 88 86 82 Resp 22 22 20 B/P (MAP) 151/71 (97) 174/65 (101) 158/79 (105) Pulse Ox 100 98 97 O2 Delivery Nasal Cannula Nasal Cannula Room Air Room Air O2 Flow Rate 2.0 2.0 10/14/18 10/14/18 10/14/18 10/14/18 06:00 06:23 06:25 07:25 Pulse 84 87 83 Resp 22 26 B/P (MAP) 172/73 (106) 172/73 153/60 (91) Pulse Ox 98 100 97 O2 Delivery Room Air Nasal Cannula Nasal Cannula O2 Flow Rate 2.0 2.0 10/14/18 10/14/18 10/14/18 10/14/18 08:00 08:00 09:00 09:00 Temp 98.1 98.1 Pulse 90 89 80 Resp 22 20 B/P (MAP) 131/55 (80) 166/61 (96) 131/55 Pulse Ox 95 94 O2 Delivery Room Air Room Air Room Air 10/14/18 10/14/18 10/14/18 10/14/18 09:00 09:00 10:00 11:00 Pulse 86 80 83 79 Resp 26 20 B/P (MAP) 131/55 131/55 167/92 (117) 139/68 (91) Pulse Ox 97 100 O2 Delivery Nasal Cannula Nasal Cannula O2 Flow Rate 2.0 2.0 10/14/18 10/14/18 10/14/18 11:47 12:00 12:00 Temp 97.9 97.9 Pulse 79 Resp 20 B/P (MAP) 167/82 (110) Pulse Ox 97 99 O2 Delivery Nasal Cannula Room Air Nasal Cannula O2 Flow Rate 2.0 2.0 Intake and Output 10/13/18 10/13/18 10/14/18 14:59 22:59 06:59 Intake Total 240 ml 440 ml Output Total 1 ml 2 ml Balance 239 ml 438 ml CHERI HERNANDEZ MD Oct 14, 2018 16:45
== END 2018-10-14 13:24 | disposition home or self-care (01) | DRG 291 ==
LOC: ER 10:38 → 2 NORTH 11:58 → 1 WEST ICU 14:12
PROVIDERS: ADMIT Internal Medicine; ATTEND Internal Medicine
DX: I13.2 Hypertensive heart and chronic kidney disease with heart failure and with stage 5 chronic kidney disease, or end stage renal disease (principal); I50.43 Acute on chronic combined systolic (congestive) and diastolic (congestive) heart failure; N18.6 End stage renal disease; I31.3 Pericardial effusion (noninflammatory); R07.89 Other chest pain; D64.9 Anemia, unspecified; E11.22 Type 2 diabetes mellitus with diabetic chronic kidney disease; E78.00 Pure hypercholesterolemia, unspecified; E78.5 Hyperlipidemia, unspecified; G47.33 Obstructive sleep apnea (adult) (pediatric); I25.10 Atherosclerotic heart disease of native coronary artery without angina pectoris; I25.82 Chronic total occlusion of coronary artery; I35.0 Nonrheumatic aortic (valve) stenosis; I44.7 Left bundle-branch block, unspecified; I48.91 Unspecified atrial fibrillation; J44.9 Chronic obstructive pulmonary disease, unspecified; Z83.3 Family history of diabetes mellitus; Z87.891 Personal history of nicotine dependence; Z95.2 Presence of prosthetic heart valve; Z99.2 Dependence on renal dialysis; Z99.81 Dependence on supplemental oxygen; E66.9 Obesity, unspecified; G62.9 Polyneuropathy, unspecified; M19.90 Unspecified osteoarthritis, unspecified site; Z88.8 Allergy status to other drugs, medicaments and biological substances; Z91.013 Allergy to seafood
CPT/HCPCS: 36415; 71045; 80048; 80053; 80061; 82550; 82962; 83690; 83735; 83880; 84100; 84484; 85025; 85610; 93005; 93306; 94640; 99291; 99292; J0360; J2405; J7613; J7626; G0378

== ENCOUNTER → 2018-10-30 | Outpatient (CLI) | payer BC, MEDICARE ==
[2018-10-14 12:00] VITALS: BP 167/82
[~2018-10-30] MED LIST changes: +BROM5DRO3 OP; +CARV25TA2 PO; +CINA30TA2 PO; +DIFL5DRO2 OP; +ISOS30TA4 PO; +LATA2.5D3 EACHEYE; +LOSA-73 PO; +NITR0.4T SL; +PANT20TA2 PO; +TICA90TA PO
--- NOTE | 2018-10-30 19:29 | RAD ---
EXAM: AP and lateral views of the bilateral hips DATE: 10/30/2018 12:00 AM INDICATION: Bilateral hip pain COMPARISON: 08/09/2016 FINDINGS/ IMPRESSION: 1. No evidence of acute fracture or dislocation of both hips. 2. Vascular calcifications are seen. 3. Hip joint spaces are grossly preserved without significant degenerative/atrophic change. 4. Moderate to large volume colonic stool content limits evaluation of the sacrum. Electronically signed by: Chuck Patrick MD (10/30/2018 4:50 PM) [facility]
--- NOTE | 2018-10-30 22:21 | PAIN ---
DATE OF SERVICE: 10/30/2018 PROGRESS NOTE FOR PAIN CLINIC DIAGNOSES: 1. Lumbar radiculopathy with lumbar degenerative disk disease. 2. Bilateral hip joint pain with osteoarthritis. HISTORY OF PRESENT ILLNESS: The patient is a 63-year-old female who returns for followup status post lumbar epidural steroid injections, last seen 10/2017. The patient reports she did fairly well with these only about 40% to 50% improvement in the pain, relief did not last for very long, more than a few months after the injections. The patient reports her pain is now different, mostly in the groins bilaterally as well as in the low back and the hips posteriorly. The patient reports it is aching, shooting pain, tingling, radiating, severe, unbearable at times. The patient reports it is an 8 on a scale of 10 at its worst over the past week, 8 on average, 7 at its least and is an 8 today. The patient reports no loss of motor function, no bowel or bladder incontinence, but worse with walking, standing, changing positions, especially stepping up on stairs or curbs and with sitting can cause some pain as well in the groin area as well as the anterior thigh, posterior hip and gluteus and posterior thighs. The patient reports no new motor or sensory deficits. PHYSICAL EXAMINATION: VITAL SIGNS: The patient's blood pressure 141/63, pulse 67, respirations 16, temperature 98.2 degrees Fahrenheit, height is 5 feet 4 inches and weight is 244 pounds. GENERAL: The patient is awake, alert, oriented, appropriate, very pleasant demeanor. HEENT: Head shows normocephalic, atraumatic. Extraocular movements are intact and symmetrical. Oral cavity: Mucous membranes moist and pink. Dentition is intact. NECK: Shows anterior throat supple without palpable lymphadenopathy noted. Swallow reflex symmetrical. CHEST: Shows normal on inspection. Breath sounds clear to auscultation bilaterally. HEART: Shows S1, S2 clear. No murmurs auscultated. ABDOMEN: Soft, nontender, nondistended. No palpable organomegaly is noted. No rebound or guarding demonstrated. BACK: Shows spine grossly in the midline. Normal appearing thoracic kyphosis, some minor flattening of lumbar lordotic curvature. Lumbar paraspinous muscle shows symmetrical on inspection, on palpation shows some moderate tenderness diffusely bilaterally going diffusely without significant radiation. The patient has full rotational motion of lumbar spine, both laterally as well as extension and flexion without significant difficulty. EXTREMITIES: Lower extremities show deep tendon reflexes at 1+ in the patellar and tendo calcaneus tendons are equal. Motor exam is 4 on a scale of 5, but symmetrical with dorsiflexion, extension, quadriceps and hamstring flexion. The patient's Ata's maneuver is mildly positive bilaterally, but only mildly so with external rotation and displacement laterally of the bilateral hips. Peripheral pulses are 1+ posterior tibial. No peripheral edema is noted. PLAN: Options were discussed with the patient. The patient's old chart was reviewed as her current medication regimen updated. Current review of systems updated today as well. We will order a hip x-ray bilaterally, plain films. Also, we would start physical therapy with water therapy. The patient is very interested in this and I feel this may help her significantly. Based increased on the radiological findings, we discussed potential interventional techniques for the hips in the future, but we will try physical therapy with water therapy first. The patient will followup after the x-rays and after therapy is started. TRACEE BHATTI MD DR: SUSAN/prabha JOB#: [id number] / [id number]
== END | disposition home or self-care (01) ==
LOC: PNCL 11:40
PROVIDERS: ATTEND Anesthesiology
DX: M51.16 Intervertebral disc disorders with radiculopathy, lumbar region (principal); M16.0 Bilateral primary osteoarthritis of hip; M40.294 Other kyphosis, thoracic region; M40.46 Postural lordosis, lumbar region
CPT/HCPCS: 73502; G0463

== ENCOUNTER 2019-02-03 09:49 | Inpatient (IN) | payer MEDICARE, BC ==
[~2019-02-03] VITALS: Ht 162.6 cm; Wt 112.6 kg
[~2019-02-03 09:49] MED LIST changes: -NITR0.4T SL; +NITR0.4T24 SL
[2019-02-03] MEDS ORDERED: IV NORMAL SALINE 1000ML BAG 1,000 ML IV SCH (09:56)
[2019-02-03] MEDS ORDERED: ASPIRIN CHEWABLE 81 MG TABLET. PO ONE (10:00)
[2019-02-03] MEDS ORDERED: MORPHINE SULFATE 4 MG/ML VIAL. IV/SQ PRN (10:00)
--- NOTE | 2019-02-03 10:03 | PHYS DOC ---
Past Medical History Past Medical History: CAD, Diabetes-Type II, High Cholesterol, Hypertension, Renal Disease, Renal Failure, Other Additional Past Medical Histor: HYPOGLYCEMIA,OBESITY, PERITONEAL DIALYSIS Past Surgical History: Other Additional Past Surgical Histo: hemodialysis in left upper arm (NOT IN USE),R CAROTID, R, L ARM GRAFT DIALY Alcohol Use: Rarely Drug Use: None Adult General Chief Complaint Chief Complaint: CHEST PAIN HPI HPI Patient is a 63-year-old female who presents with complaint of midsternal chest pain that started 4 days ago. She states that pain is been waxing and waning. Patient states that she had taken nitroglycerin earlier today and pain had improved but then started again about an hour ago. Patient does indicate that she has a strong cardiac history. She rates pain at a 9 out of 10. She denies any nausea or vomiting but does indicate that she was having some diaphoresis last night. She states she did not come in initially because she was thinking was just GERD. She states that pain is worsened with exertion.[] Review of Systems Review of Systems Constitutional: Denies fever or chills [] Respiratory: Denies cough or shortness of breath [] Cardiovascular: No additional information not addressed in HPI [] GI: Denies abdominal pain, nausea, vomiting or diarrhea [] Integument: Denies rash or skin lesions [] Neurologic: Denies headache, focal weakness or sensory changes [] All other systems were reviewed and found to be within normal limits, except as documented in this note. Current Medications Current Medications Current Medications Medications (Trade) Dose Ordered Sig/Chinmay Start Time Stop Time Status Last Admin Dose Admin Aspirin (Children'S Aspirin) 324 mg 1X ONCE 02/03/19 10:00 02/03/19 10:04 DC 02/03/19 10:44 324 MG Morphine Sulfate (Morphine Sulfate) 4 mg PRN Q15MIN PRN 02/03/19 10:00 02/04/19 09:59 02/03/19 10:45 4 MG Sodium Chloride 1,000 ml @ 100 mls/hr Q10H 02/03/19 09:56 02/03/19 19:55 02/03/19 10:45 100 MLS/HR Allergies Allergies Allergies Coded Allergies Type Severity Reaction Last Updated Verified Iodine and Iodide Containing Produc Allergy Severe swells up & itches 02/13/18 Yes shellfish derived Allergy Intermediate "SEAFOOD" 02/13/18 Yes Physical Exam Physical Exam Constitutional: Well developed, well nourished, no acute distress, non-toxic appearance. [] HENT: Normocephalic, atraumatic, bilateral external ears normal, oropharynx moist, no oral exudates, nose normal. [] Eyes: PERRLA, EOMI, conjunctiva normal, no discharge. [] Neck: Normal range of motion, no tenderness, supple, no stridor. [] Cardiovascular: Regular rate and rhythm[] Lungs & Thorax: Bilateral breath sounds clear to auscultation [] Abdomen: Bowel sounds normal, soft, no tenderness. [] Skin: Warm, dry, no erythema, no rash. [] Extremities: No tenderness, no cyanosis, no clubbing, ROM intact. [] Neurologic: Alert and oriented X 3, no focal deficits noted. [] Current Patient Data Vital Signs Vital Signs Date Time Temp Pulse Resp B/P (MAP) Pulse Ox O2 Delivery O2 Flow Rate FiO2 02/03/19 10:14 97.9 81 18 245/107 (153) 98 Room Air 97.9 Lab Values Laboratory Tests Test 02/03/19 10:17 White Blood Count 10.0 x10^3/uL (4.0-11.0) Red Blood Count 4.34 x10^6/uL (3.50-5.40) Hemoglobin 12.2 g/dL (12.0-15.5) Hematocrit 37.9 % (36.0-47.0) Mean Corpuscular Volume 87 fL (79-100) Mean Corpuscular Hemoglobin 28 pg (25-35) Mean Corpuscular Hemoglobin Concent 32 g/dL (31-37) Red Cell Distribution Width 18.4 % (11.5-14.5) H Platelet Count 206 x10^3/uL (140-400) Neutrophils (%) (Auto) 73 % (31-73) Lymphocytes (%) (Auto) 14 % (24-48) L Monocytes (%) (Auto) 10 % (0-9) H Eosinophils (%) (Auto) 2 % (0-3) Basophils (%) (Auto) 1 % (0-3) Neutrophils # (Auto) 7.4 x10^3/uL (1.8-7.7) Lymphocytes # (Auto) 1.4 x10^3/uL (1.0-4.8) Monocytes # (Auto) 1.0 x10^3/uL (0.0-1.1) Eosinophils # (Auto) 0.1 x10^3/uL (0.0-0.7) Basophils # (Auto) 0.1 x10^3/uL (0.0-0.2) Prothrombin Time 15.3 SEC (11.7-14.0) H Prothrombin Time INR 1.2 (0.8-1.1) H Sodium Level 142 mmol/L (136-145) Potassium Level 4.4 mmol/L (3.5-5.1) Chloride Level 102 mmol/L (98-107) Carbon Dioxide Level 25 mmol/L (21-32) Anion Gap 15 (6-14) H Blood Urea Nitrogen 47 mg/dL (7-20) H Creatinine 8.8 mg/dL (0.6-1.0) H Estimated GFR (Cockcroft-Gault) 5.5 BUN/Creatinine Ratio 5 (6-20) L Glucose Level 102 mg/dL (70-99) H Calcium Level 9.3 mg/dL (8.5-10.1) Magnesium Level 1.9 mg/dL (1.8-2.4) Total Bilirubin 0.5 mg/dL (0.2-1.0) Aspartate Amino Transferase (AST) 19 U/L (15-37) Alanine Aminotransferase (ALT) 11 U/L (14-59) L Alkaline Phosphatase 130 U/L (46-116) H Troponin I Quantitative 0.224 ng/mL (0.000-0.055) KX-Gio-S-Type Natriuretic Peptide 19695 pg/mL (0-124) H Total Protein 8.0 g/dL (6.4-8.2) Albumin 3.2 g/dL (3.4-5.0) L Albumin/Globulin Ratio 0.7 (1.0-1.7) L Lipase 332 U/L (73-393) Laboratory Tests 02/03/19 10:17 Laboratory Tests 02/03/19 10:17 EKG EKG [] Interpretation Time: EKG demonstrates normal sinus rhythm with rate of 82 and left bundle branch block Radiology/Procedures Radiology/Procedures [] Impressions: PROCEDURE: PORTABLE CHEST 1V Examination: PORTABLE CHEST 1V History: Chest pain Comparison/Correlation: 10/13/2018 portable AP chest x-ray exam Findings: Upright portable frontal view of the chest was obtained. Cardiomegaly is present. No pneumothorax. Bony vasculature is within upper limits of normal. No pleural effusion. No infiltrate. Impression: Cardiomegaly. No suspicious change. Electronically signed by: Jasen Haddad MD (02/03/2019 10:33 AM) [facility] Course & Med Decision Making Course & Med Decision Making Pertinent Labs and Imaging studies reviewed. (See chart for details) [] Dragon Disclaimer Dragon Disclaimer This electronic medical record was generated, in whole or in part, using a voice recognition dictation system. Departure Departure Impression: Primary Impression: Chest pain Additional Impression: End stage renal disease on dialysis Disposition: ADMITTED INPATIENT Admitting Physician: BONNY (Dr. Simon) Condition: IMPROVED Referrals: YAIMA HIGHTOWER MD (PCP) Problem Qualifiers Primary Impression: Chest pain Chest pain type: unspecified Qualified Codes: R07.9 - Chest pain, unspecified BENITO NGO Jr. DO Feb 03, 2019 10:02
[2019-02-03 10:27] LABS: BASO # 0.1 x10^3/uL (0.0-0.2); BASO % 1 % (0-3); EOS # 0.1 x10^3/uL (0.0-0.7); EOS % 2 % (0-3); HEMATOCRIT 37.9 % (36.0-47.0); HEMOGLOBIN 12.2 g/dL (12.0-15.5); LYMPH # 1.4 x10^3/uL (1.0-4.8); LYMPH % 14 % (24-48); MEAN CORPUSCULAR HEMOGLOBIN 28 pg (25-35); MEAN CORPUSCULAR HGB CONC 32 g/dL (31-37); MEAN CORPUSCULAR VOLUME 87 fL (79-100); MONO % 10 % (0-9); NEUT # 7.4 x10^3/uL (1.8-7.7); NEUT % 73 % (31-73); PLATELET COUNT 206 x10^3/uL (140-400); RED BLOOD COUNT 4.34 x10^6/uL (3.50-5.40); RED CELL DISTRIBUTION WIDTH 18.4 % (11.5-14.5)
--- NOTE | 2019-02-03 10:36 | RAD ---
Examination: PORTABLE CHEST 1V History: Chest pain Comparison/Correlation: 10/13/2018 portable AP chest x-ray exam Findings: Upright portable frontal view of the chest was obtained. Cardiomegaly is present. No pneumothorax. Bony vasculature is within upper limits of normal. No pleural effusion. No infiltrate. Impression: Cardiomegaly. No suspicious change. Electronically signed by: Jasen Haddad MD (02/03/2019 10:33 AM) [facility]
[2019-02-03 10:37] LABS: CALCIUM 9.3 mg/dL (8.5-10.1); CREATININE 8.8 mg/dL (0.6-1.0); GFR 5.5; POTASSIUM 4.4 mmol/L (3.5-5.1)
[2019-02-03 10:39] LABS: PROTHROMBIN TIME PATIENT 15.3 SEC (11.7-14.0)
[2019-02-03 10:42] LABS: ALBUMIN 3.2 g/dL (3.4-5.0); ALBUMIN/GLOBULIN RATIO 0.7 (1.0-1.7); MAGNESIUM 1.9 mg/dL (1.8-2.4); TOTAL BILIRUBIN 0.5 mg/dL (0.2-1.0)
--- NOTE | 2019-02-03 11:37 | EKG ---
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
[2019-02-03] MEDS ORDERED: ONDANSETRON PF 4 MG/2 ML VIAL. IV PRN (11:45)
[2019-02-03] MEDS ORDERED: MORPHINE SULFATE 4 MG/ML VIAL. IV PRN (11:45)
[2019-02-03] MEDS ORDERED: NITROGLYCERIN SUBLINGUAL 0.4 MG BOTTLE OF 25. SL PRN (15:00)
[2019-02-03] MEDS ORDERED: hydrALAZINE 20 MG/ML VIAL. IVP PRN (15:15)
--- NOTE | 2019-02-03 15:24 | PDOC2 ---
CARDIAC CONSULT DATE OF CONSULT Date of Consult DATE: 02/03/19 TIME: 14:39 REASON FOR CONSULT Reason for Consult: chest pain REFERRING PHYSICIAN Referring Physician: Lauren SOURCE Source: Chart review, Patient HISTORY OF PRESENT ILLNESS HISTORY OF PRESENT ILLNESS This is a pleasant 63 yo female admitted for complains of chest pain. Reports that this is tightness and sharp at the same time across her chest. This has been going on in the last 4 days. It occurred about 4 hours after dialysis yesterday and took 2 NTG. Today this occurred prior to her going to her appointment with pain management and decided to come to ED instead. It was hard for her to breath at that time but no sensation of palpitations and no jaw tightness or arm discomfort. Her pain was resolved after ASA and morphine in ED. No recent falls or injury. She has been complaint with her meds and dialysis but lately her SBP has been running in the 180s. Her medications has been adjusted but it is unclear why she was taken off metoprolol citing possibly from low BP. Upon admission her SBP was in the 250s and has come down normalized at 117. No n/v. No frequent coughing. Denies any heartburn. She is known to cardiology with last follow up in 11/2018 after stent placement in 09/2018. She had TAVR around 06/2018 and RCEA in 01/2018. She also has cardiomyopathy with recent EF at 35% and potential AICD has been discussed. To add her high started after and admits high salt intake. PAST MEDICAL HISTORY Past Medical History Cardiovascular: AFIB, CAD, CHF, HTN, Hyperlipidemia, Aortic stenosis (s/p TAVR), carotid artery disease, chronic LBBB, ICM, Chronic occlusion of her di stal LAD which is collateralized from the RCA. Pulmonary: COPD, Other (XOCHILT) CENTRAL NERVOUS SYSTEM: Peripheral neuropathy Heme/Onc: Anemia NOS, Other (DVT ) Musculoskeletal: Osteoarthritis, Other (DDD), chronic back pain Renal/: Chronic renal failure Endocrine: Diabetes PAST SURGICAL HISTORY Past Surgical History: Hernia Repair, Other (R AV dialysis fistula, TAVR, RCEA, multiple PCIs) FAMILY HISTORY Family History noncontributory to CV SOCIAL HISTORY Smoke: Quit ALCOHOL: none Drugs: None Lives: with Family CURRENT MEDICATIONS CURRENT MEDICATIONS Current Medications Medications (Trade) Dose Ordered Sig/Chinmay Route PRN Reason Start Time Stop Time Status Last Admin Dose Admin Aspirin (Children'S Aspirin) 324 mg 1X ONCE PO 02/03/19 10:00 02/03/19 10:04 DC 02/03/19 10:44 Morphine Sulfate (Morphine Sulfate) 4 mg PRN Q15MIN PRN IV/SQ PAIN GREATER THAN 3/10 02/03/19 10:00 02/04/19 09:59 02/03/19 10:45 Sodium Chloride 1,000 ml @ 100 mls/hr Q10H IV 02/03/19 09:56 02/03/19 19:55 02/03/19 10:45 ALLERGIES ALLERGIES: Coded Allergies: Iodine and Iodide Containing Produc (Verified Allergy, Severe, swells up & itches, 02/13/18) shellfish derived (Verified Allergy, Intermediate, "SEAFOOD", 02/13/18) ROS Review of System 14 point ROS evaluated with pertinent positives noted per HPI PHYSICAL EXAM General: Alert, Oriented X3, Cooperative, No acute distress HEENT: Atraumatic, Mucous membr. moist/pink Lungs: Clear to auscultation, Normal air movement Heart: Regular rate (SR with LBBB), Other (S4- 4/6 systolic murmur to JOEL border) Abdomen: Soft, No tenderness Extremities: No cyanosis, No edema Skin: No breakdown, No significant lesion Neuro: Normal speech, Sensation intact Psych/Mental Status: Mental status NL, Mood NL MUSCULOSKELETAL: Osteoarthritic changes both hands VITALS/I&O VITALS/I&O: Vital Signs Date Time Temp Pulse Resp B/P (MAP) Pulse Ox O2 Delivery O2 Flow Rate FiO2 02/03/19 11:37 60 16 148/62 (90) 95 Room Air 02/03/19 10:14 97.9 97.9 LABS Lab: Laboratory Tests Test 02/03/19 10:17 White Blood Count 10.0 x10^3/uL (4.0-11.0) Red Blood Count 4.34 x10^6/uL (3.50-5.40) Hemoglobin 12.2 g/dL (12.0-15.5) Hematocrit 37.9 % (36.0-47.0) Mean Corpuscular Volume 87 fL (79-100) Mean Corpuscular Hemoglobin 28 pg (25-35) Mean Corpuscular Hemoglobin Concent 32 g/dL (31-37) Red Cell Distribution Width 18.4 % (11.5-14.5) H Platelet Count 206 x10^3/uL (140-400) Neutrophils (%) (Auto) 73 % (31-73) Lymphocytes (%) (Auto) 14 % (24-48) L Monocytes (%) (Auto) 10 % (0-9) H Eosinophils (%) (Auto) 2 % (0-3) Basophils (%) (Auto) 1 % (0-3) Neutrophils # (Auto) 7.4 x10^3/uL (1.8-7.7) Lymphocytes # (Auto) 1.4 x10^3/uL (1.0-4.8) Monocytes # (Auto) 1.0 x10^3/uL (0.0-1.1) Eosinophils # (Auto) 0.1 x10^3/uL (0.0-0.7) Basophils # (Auto) 0.1 x10^3/uL (0.0-0.2) Prothrombin Time 15.3 SEC (11.7-14.0) H Prothrombin Time INR 1.2 (0.8-1.1) H Sodium Level 142 mmol/L (136-145) Potassium Level 4.4 mmol/L (3.5-5.1) Chloride Level 102 mmol/L (98-107) Carbon Dioxide Level 25 mmol/L (21-32) Anion Gap 15 (6-14) H Blood Urea Nitrogen 47 mg/dL (7-20) H Creatinine 8.8 mg/dL (0.6-1.0) H Estimated GFR (Cockcroft-Gault) 5.5 BUN/Creatinine Ratio 5 (6-20) L Glucose Level 102 mg/dL (70-99) H Calcium Level 9.3 mg/dL (8.5-10.1) Magnesium Level 1.9 mg/dL (1.8-2.4) Total Bilirubin 0.5 mg/dL (0.2-1.0) Aspartate Amino Transferase (AST) 19 U/L (15-37) Alanine Aminotransferase (ALT) 11 U/L (14-59) L Alkaline Phosphatase 130 U/L (46-116) H Troponin I Quantitative 0.224 ng/mL (0.000-0.055) YF-Knr-M-Type Natriuretic Peptide 74360 pg/mL (0-124) H Total Protein 8.0 g/dL (6.4-8.2) Albumin 3.2 g/dL (3.4-5.0) L Albumin/Globulin Ratio 0.7 (1.0-1.7) L Lipase 332 U/L (73-393) Laboratory Tests 02/03/19 10:17 Laboratory Tests 02/03/19 10:17 ECHOCARDIOGRAM ECHOCARDIOGRAM <Conclusion> Septal motion consistent with conduction abnormality. There is global hypokinesis. The aortic valve is not well visualized. TAVR valve in place. Doppler and Color Flow revealed trace tricuspid regurgitation. The PA pressure was estimated at 39 mmHg. There is a small circumferential pericardial effusion. DATE: 10/14/18 0901 ASSESSMENT/PLAN ASSESSMENT/PLAN 1. NSTEMI: initial trop 0.2. EKG SR with LBBB no acute changes by comparison 2. Accelerated HTN: SBP initial at 245 and now normalized after morphine 3. 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 09/2018 PCI/stent to D1 at [facility] 4. Chronic systolic CHF: clinically no acute exacerbation 5. Chronic LBBB 6. S/P TAVR: 06/2018 7. ICM: NYHA 2-3 last known EF at 35% 8. Hyperlipidemia 9. DM2 10. ESRD on HD 11. Iodine allergy Recommendations 1. Limited TTE 2. Her CP is resolved after her BP has been normalized. Potentially her CP and resolution of CP could be from her high BP, however with her recurring CP resolved with NTG in the recent days and morphine as well in ED, ischemia is high in the differential. Will trend troponin, repeat EKG and will consider for ischemic workup tomorrow. 3. Her BB was also taken off her regimen citing possibly from low BP and as described above her BP normalized after morphine without any BP regimen given. ASA, plavix and statin and await pending trop and will start on heparin. NPO after MN 4. Fluid offloading via HD 5. Hold BP meds for now, resume lipitor and place on hydralazine IV PRN. 6. Iodine allergy prep if LHC to be done, will discuss further with primary access registrar AMAN EDWARDS APRN Feb 03, 2019 15:24
[2019-02-03] MEDS ORDERED: CLOPIDOGREL BISULFATE 75 MG TABLET PO ONE (15:30)
--- NOTE | 2019-02-03 16:03 | EKG ---
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
[2019-02-03 16:06] LABS: CHOLESTEROL/HDL RATIO 2.6
[2019-02-03] MEDS ORDERED: HEPARIN 25,000UTS/500ML PREMIX 500 ML IV PRN (16:40)
[2019-02-03] MEDS ORDERED: HEPARIN for IV BOLUS 10,000 UNIT/10 ML VIAL. IV ONE (16:45)
[2019-02-03] MEDS ORDERED: HEPARIN for IV BOLUS 10,000 UNIT/10 ML VIAL. IV PRN (16:45)
[2019-02-03 17:20] VITALS: BP 143/70
[2019-02-03] MEDS ORDERED: SEVE800T9 PO (18:04)
[2019-02-03] MEDS ORDERED: CLOP75TA PO (18:04)
[2019-02-03] MEDS: CARVEDILOL 12.5 MG TABLET. PO SCH (18:18)
[2019-02-03] MEDS ORDERED: ALBUTEROL SULFATE 2.5 MG/3 ML NEBU. ONE (18:25)
[2019-02-03] MEDS: ALBUTEROL SULFATE 2.5 MG/3 ML NEBU. NEB SCH (18:29)
[2019-02-03] MEDS: BUDESONIDE 0.5 MG/2 ML NEBU. NEB SCH (18:30)
[2019-02-03 19:13] VITALS: BP 147/67
[2019-02-03] MEDS ORDERED: NON FORMULARY ITEM (Difluprednate (Durezol) 5 ML) OP SCH (21:00)
[2019-02-03] MEDS: LATANOPROST 0.005% OPHTH SOLUTION 2.5ML BOTTLE. OU SCH (21:00)
[2019-02-03] MEDS ORDERED: NON FORMULARY ITEM (Budesonide/Formoterol Fumarate (Symbicort 160-4.5 Mcg Inhaler) 2 PUFF) IH SCH (21:00)
[2019-02-03] MEDS: SODIUM BICARBONATE 650 MG TABLET. PO SCH (21:01)
[2019-02-03] MEDS: ATORVASTATIN CALCIUM 40 MG TABLET. PO SCH (21:01)
[2019-02-03 22:13] LABS: BILIRUBIN,URINE SMALL (NEG); CLARITY,URINE CLEAR; COLOR,URINE YELLOW; NITRITE,URINE NEGATIVE (NEG); PROTEIN,URINE >=300 mg/dL (NEG-TRACE)
[2019-02-03 22:16] LABS: BACTERIA,URINE MANY /HPF (0-FEW); SQUAMOUS EPITHELIAL CELL,UR MANY /LPF
[2019-02-03 22:17] LABS: RBC,URINE OCC /HPF (0-2); WBC,URINE 20-40 /HPF (0-4)
[2019-02-03 22:36] VITALS: BP 159/66
[2019-02-04 02:58] VITALS: BP 147/61
[2019-02-04 06:01] LABS: BASO # 0.1 x10^3/uL (0.0-0.2); BASO % 1 % (0-3); EOS # 0.2 x10^3/uL (0.0-0.7); EOS % 2 % (0-3); HEMATOCRIT 36.5 % (36.0-47.0); HEMOGLOBIN 11.5 g/dL (12.0-15.5); LYMPH # 1.5 x10^3/uL (1.0-4.8); LYMPH % 15 % (24-48); MEAN CORPUSCULAR HEMOGLOBIN 28 pg (25-35); MEAN CORPUSCULAR HGB CONC 31 g/dL (31-37); MEAN CORPUSCULAR VOLUME 89 fL (79-100); MONO # 0.9 x10^3/uL (0.0-1.1); MONO % 9 % (0-9); NEUT # 7.2 x10^3/uL (1.8-7.7); NEUT % 73 % (31-73); PLATELET COUNT 198 x10^3/uL (140-400); RED BLOOD COUNT 4.12 x10^6/uL (3.50-5.40); RED CELL DISTRIBUTION WIDTH 18.2 % (11.5-14.5); WHITE BLOOD COUNT 9.9 x10^3/uL (4.0-11.0)
[2019-02-04 06:13] LABS: CALCIUM 8.8 mg/dL (8.5-10.1); CREATININE 10.2 mg/dL (0.6-1.0); GFR 4.6; POTASSIUM 4.2 mmol/L (3.5-5.1)
[2019-02-04 07:00] VITALS: BP 138/60
[2019-02-04] MEDS: PANTOPRAZOLE 40 MG TABLET.DR. PO SCH ×2 (07:30→19:01)
[2019-02-04] MEDS: BUDESONIDE 0.5 MG/2 ML NEBU. NEB SCH ×2 (07:40→19:43)
[2019-02-04] MEDS: ALBUTEROL SULFATE 2.5 MG/3 ML NEBU. NEB SCH ×4 (07:40→19:44)
[2019-02-04] MEDS: CARVEDILOL 12.5 MG TABLET. PO SCH ×2 (08:00→19:01)
[2019-02-04] MEDS: SEVELAMER CARBONATE 800 MG TABLET. PO SCH ×3 (08:00→19:00)
[2019-02-04] MEDS ORDERED: ATORVASTATIN CALCIUM 40 MG TABLET. PO SCH (09:00)
[2019-02-04] MEDS: SODIUM BICARBONATE 650 MG TABLET. PO SCH ×2 (09:00→21:25)
[2019-02-04] MEDS ORDERED: KETOROLAC TROMETHAMINE 0.5% OPHTH SOLUTION 3ML BOTTLE. OU SCH (09:00)
[2019-02-04] MEDS ORDERED: TICAGRELOR 90 MG TABLET. PO SCH (09:00)
[2019-02-04] MEDS ORDERED: ANTI-COAG MONITOR BY PHARMACY. MC PRN (09:30)
--- NOTE | 2019-02-04 09:42 | PDOC1 ---
History and Physical Date of Admission Date of Admission DATE: 02/04/19 TIME: 09:39 History of Present Illness History of Present Illness LATE ENTRY, pt seen 02/03 in the ER Ms. Lara, is a 63-year-old female who presents with complaint of midsternal chest pain that started 4 days ago. She states that pain is been waxing and waning. Patient states that she had taken nitroglycerin earlier today and pain had improved but then started again about an hour ago. Patient does indicate that she has a strong cardiac history. She rates pain at a 9 out of 10. She denies any nausea or vomiting but does indicate that she was having some diaphoresis last night. She states she did not come in initially because she was thinking was just GERD. She states that pain is worsened with exertion Past Medical History Cardiovascular: AFIB, CAD, CHF, HTN, Hyperlipidemia, Aortic stenosis Pulmonary: COPD, Other CENTRAL NERVOUS SYSTEM: Periperal neuropathy GI: No pertinent hx Heme/Onc: Anemia NOS, Other Musculoskeletal: Osteoarthritis, Other Renal/: Chronic renal failure Endocrine: Diabetes Past Surgical History Past Surgical History: Hernia Repair, Other (R AV dialysis fistula, TAVR, RCEA, multiple PCIs) Family History Family History: Cancer Social History Smoke: No ALCOHOL: none Drugs: None Current Problem List Problem List Problems Medical Problems: (1) Chest pain Status: Acute (2) End stage renal disease on dialysis Status: Acute Current Medications Current Medications Current Medications Aspirin (Children'S Aspirin) 324 mg 1X ONCE PO Last administered on 02/03/19at 10:44; Start 02/03/19 at 10:00; Stop 02/03/19 at 10:04; Status DC Morphine Sulfate (Morphine Sulfate) 4 mg PRN Q15MIN PRN IV/SQ PAIN GREATER THAN 3/10 Last administered on 02/03/19at 10:45; Start 02/03/19 at 10:00; Stop 02/04/19 at 09:59 Sodium Chloride 1,000 ml @ 100 mls/hr Q10H IV Last administered on 02/03/19at 10:45; Start 02/03/19 at 09:56; Stop 02/03/19 at 19:55; Status DC Ondansetron HCl (Zofran) 4 mg PRN Q8HRS PRN IV NAUSEA/VOMITING; Start 02/03/19 at 11:45; Stop 02/04/19 at 11:44 Morphine Sulfate (Morphine Sulfate) 4 mg PRN Q2HR PRN IV PAIN Last administered on 02/04/19at 09:35; Start 02/03/19 at 11:45; Stop 02/04/19 at 11:44 Aspirin (Children'S Aspirin) 81 mg DAILY PO ; Start 02/04/19 at 09:00 Atorvastatin Calcium (Lipitor) 40 mg DAILY PO ; Start 02/04/19 at 09:00; Status UNV Cinacalcet (Sensipar) 30 mg DAILY PO ; Start 02/04/19 at 09:00 Vitamin B Complex/ Vitamin C (Jacquie-Debbi) 1 tab DAILY PO ; Start 02/04/19 at 09:00 Glipizide (Glucotrol) 2.5 mg DAILYWBKFT PO ; Start 02/04/19 at 08:00 Latanoprost (Xalatan) 1 drop QHS OU Last administered on 02/03/19at 21:00; Start 02/03/19 at 21:00 Linagliptin (Tradjenta) 5 mg DAILY PO ; Start 02/04/19 at 09:00 Losartan Potassium (Cozaar) 50 mg DAILY PO ; Start 02/04/19 at 09:00 Nitroglycerin (Nitrostat) 0.4 mg PRN Q5MIN PRN SL CHEST PAIN; Start 02/03/19 at 15:00 Sodium Bicarbonate (Sodium Bicarbonate) 650 mg BID PO Last administered on 02/03/19at 21:01; Start 02/03/19 at 21:00 Ticagrelor (Brilinta) 90 mg BID PO ; Start 02/04/19 at 09:00; Status Cancel Ketorolac Tromethamine (Acular) 1 drop DAILY OU ; Start 02/04/19 at 09:00; Status UNV Non-Formulary Medication (Budesonide/ Formoterol Fumarate (Symbicort 160-4.5 Mcg Inhaler)) 2 puff BID IH ; Start 02/03/19 at 21:00; Status UNV Carvedilol (Coreg) 25 mg BIDWMEALS PO Last administered on 02/03/19at 18:18; Start 02/03/19 at 17:00 Non-Formulary Medication (Difluprednate (Durezol)) 5 ml TID OP ; Start 02/03/19 at 21:00; Status UNV Pantoprazole Sodium (Protonix) 40 mg DAILYAC PO ; Start 02/04/19 at 07:30 Albuterol Sulfate (Ventolin Neb Soln) 2.5 mg RTQID NEB Last administered on 02/04/19at 07:40; Start 02/03/19 at 20:00 Budesonide (Pulmicort) 0.5 mg RTBID NEB Last administered on 02/04/19at 07:40; Start 02/03/19 at 20:00 Hydralazine HCl (Apresoline Inj) 10 mg PRN Q4HRS PRN IVP ELEVATED BP, SEE COMMENTS; Start 02/03/19 at 15:15 Clopidogrel Bisulfate (Plavix) 75 mg 1X ONCE PO Last administered on 02/03/19at 16:23; Start 02/03/19 at 15:30; Stop 02/03/19 at 16:46; Status DC Atorvastatin Calcium (Lipitor) 40 mg QHS PO Last administered on 02/03/19at 21:01; Start 02/03/19 at 21:00 Heparin Sodium (Porcine) (Heparin Sodium) 4,000 unit 1X ONCE IV Last administered on 02/03/19at 17:13; Start 02/03/19 at 16:45; Stop 02/03/19 at 16:46; Status DC Heparin Sodium/ Dextrose 500 ml @ 20 mls/hr CONT PRN PRN IV SEE PROTOCOL Last administered on 02/03/19at 17:15; Start 02/03/19 at 16:40 Heparin Sodium (Porcine) (Heparin Sodium) 2,900 unit PRN Q6HRS PRN IV FOR UFH LEVEL LESS THAN 0.2 Last administered on 02/04/19at 00:08; Start 02/03/19 at 16:45 Albuterol Sulfate (Ventolin Neb Soln) 2.5 mg STK-MED ONCE .ROUTE ; Start 02/03/19 at 18:25; Stop 02/03/19 at 18:25; Status DC Clopidogrel Bisulfate (Plavix) 75 mg DAILY PO ; Start 02/04/19 at 09:00 Sevelamer Carbonate (Renvela) 800 mg TIDWMEALS PO ; Start 02/04/19 at 08:00 Info (Anti-Coagulation Monitoring By Pharmacy) 1 each PRN DAILY PRN MC SEE COMMENTS; Start 02/04/19 at 09:30 Active Scripts Active Nitrostat (Nitroglycerin) 0.4 Mg Tab.subl 0.4 Mg SL PRN Q5MIN PRN 20 Days Reported Renvela (Sevelamer Carbonate) 800 Mg Tablet 800 Mg PO TIDWMEALS Clopidogrel (Clopidogrel Bisulfate) 75 Mg Tablet 75 Mg PO DAILY Protonix (Pantoprazole Sodium) 20 Mg Tablet.dr 1 Tab PO DAILY Carvedilol 25 Mg Tablet 25 Mg PO BIDWMEALS Losartan Potassium 50 Mg Tablet 50 Mg PO DAILY Sensipar (Cinacalcet Hcl) 30 Mg Tablet 30 Mg PO DAILY Durezol (Difluprednate) 5 Ml Drops 5 Ml OP TID Bromsite (Bromfenac Sodium) 5 Ml Drops 5 Ml OP DAILY Latanoprost 2.5 Ml Drops 1 Drop EACHEYE QHS Symbicort 160-4.5 Mcg Inhaler (Budesonide/Formoterol Fumarate) 10.2 Gm Hfa.aer.ad 2 Puff IH BID Aspirin 81 Mg Tab.chew 1 Tab PO DAILY Glipizide 5 Mg Tablet 2.5 Mg PO DAILY Tradjenta (Linagliptin) 5 Mg Tablet 1 Tab PO DAILY Jacquie-Debbi Tablet (Folic Acid/Vitamin B Comp W-C) 0.8 Mg Tablet 0.8 Mg PO DAILY Sodium Bicarbonate 650 Mg Tablet 1 Tab PO BID Atorvastatin Calcium 40 Mg Tablet 1 Tab PO DAILY Allergies Allergies: Coded Allergies: Iodine and Iodide Containing Produc (Verified Allergy, Severe, swells up & itches, 02/13/18) shellfish derived (Verified Allergy, Intermediate, "SEAFOOD", 02/13/18) ROS General: YES: Chills, Fatigue, Malaise PSYCHOLOGICAL ROS: YES: Memory difficulties, Sleep disturbances; No: Anxiety, Behavioral Disorder, Concentration difficultie, Decreased libido, Depression, Disorientation, Mood Swings, Obsessive thoughts, Suicidal ideation, Other Respiratory: No: Cough, Hemoptysis, Orthopnea, Pleuritic Pain, Shortness of breath, SOB with excertion, Sputum Changes, Stridor, Tachypnea, Wheezing, Other Cardiovascular: yes Chest Pain; No Palpitations, No Orthopnea, No Paroxysmal Noc. Dyspnea, No Edema, No Lt Headedness, No Other Gastrointestinal: Yes Nausea; No Vomiting, No Abdominal Pain, No Diarrhea, No Constipation, No Melena, No Hematochezia, No Other Genitourinary: No Dysuria, No Frequency, No Incontinence, No Hematuria, No Retention, No Discharge, No Urgency, No Pain, No Flank Pain, No Other, No , No , No , No , No , No , No Musculoskeletal: No Gait Disturbance, No Joint Pain, No Joint Stiffness, No Joint Swelling, No Muscle Pain, No Muscular Weakness, No Pain In:, No Swelling In:, No Other Neurological: Yes Numbness/Tingling; No Behavorial Changes, No Bowel/Bladder ControlChng, No Confusion, No Dizziness, No Gait Disturbance, No Headaches, No Impaired Coord/balance, No Memory Loss, No Seizures, No Speech Problems, No Tremors, No Visual Changes, No Weakness, No Other Skin: No Dry Skin, No Eczema, No Hair Changes, No Lumps, No Mole Changes, No Mottling, No Nail Changes, No Pruritus, No Rash, No Skin Lesion Changes, No Other, No Acne Physical Exam General: Alert, Cooperative, mild distress, moderate distress HEENT: Atraumatic Lungs: Clear to auscultation Heart: S1S2, no murmurs, other Abdomen: Normal bowel sounds, Soft Extremities: No clubbing, No edema Skin: No breakdown, No significant lesion Neuro: Normal speech, Sensation intact Psych/Mental Status: Mood NL Vitals Vitals Vital Signs Date Time Temp Pulse Resp B/P (MAP) Pulse Ox O2 Delivery O2 Flow Rate FiO2 02/04/19 09:35 Nasal Cannula 2.0 02/04/19 07:42 98 02/04/19 02:58 98.4 67 16 147/61 (89) 98.4 Labs Labs Laboratory Tests Test 02/03/19 10:17 02/03/19 14:55 02/03/19 17:29 02/03/19 17:50 White Blood Count 10.0 x10^3/uL (4.0-11.0) Red Blood Count 4.34 x10^6/uL (3.50-5.40) Hemoglobin 12.2 g/dL (12.0-15.5) Hematocrit 37.9 % (36.0-47.0) Mean Corpuscular Volume 87 fL (79-100) Mean Corpuscular Hemoglobin 28 pg (25-35) Mean Corpuscular Hemoglobin Concent 32 g/dL (31-37) Red Cell Distribution Width 18.4 % (11.5-14.5) Platelet Count 206 x10^3/uL (140-400) Neutrophils (%) (Auto) 73 % (31-73) Lymphocytes (%) (Auto) 14 % (24-48) Monocytes (%) (Auto) 10 % (0-9) Eosinophils (%) (Auto) 2 % (0-3) Basophils (%) (Auto) 1 % (0-3) Neutrophils # (Auto) 7.4 x10^3/uL (1.8-7.7) Lymphocytes # (Auto) 1.4 x10^3/uL (1.0-4.8) Monocytes # (Auto) 1.0 x10^3/uL (0.0-1.1) Eosinophils # (Auto) 0.1 x10^3/uL (0.0-0.7) Basophils # (Auto) 0.1 x10^3/uL (0.0-0.2) Prothrombin Time 15.3 SEC (11.7-14.0) Prothromb Time International Ratio 1.2 (0.8-1.1) Sodium Level 142 mmol/L (136-145) Potassium Level 4.4 mmol/L (3.5-5.1) Chloride Level 102 mmol/L (98-107) Carbon Dioxide Level 25 mmol/L (21-32) Anion Gap 15 (6-14) Blood Urea Nitrogen 47 mg/dL (7-20) Creatinine 8.8 mg/dL (0.6-1.0) Estimated GFR (Cockcroft-Gault) 5.5 BUN/Creatinine Ratio 5 (6-20) Glucose Level 102 mg/dL (70-99) Calcium Level 9.3 mg/dL (8.5-10.1) Magnesium Level 1.9 mg/dL (1.8-2.4) Total Bilirubin 0.5 mg/dL (0.2-1.0) Aspartate Amino Transf (AST/SGOT) 19 U/L (15-37) Alanine Aminotransferase (ALT/SGPT) 11 U/L (14-59) Alkaline Phosphatase 130 U/L (46-116) Troponin I Quantitative 0.224 ng/mL (0.000-0.055) 0.246 ng/mL (0.000-0.055) 0.221 ng/mL (0.000-0.055) ZU-Kde-U-Type Natriuretic Peptide 92322 pg/mL (0-124) Total Protein 8.0 g/dL (6.4-8.2) Albumin 3.2 g/dL (3.4-5.0) Albumin/Globulin Ratio 0.7 (1.0-1.7) Triglycerides Level 73 mg/dL (0-150) Cholesterol Level 134 mg/dL (0-200) LDL Cholesterol, Calculated 67 mg/dL (0-100) VLDL Cholesterol, Calculated 15 mg/dL (0-40) Non-HDL Cholesterol Calculated 82 mg/dL (0-129) HDL Cholesterol 52 mg/dL (40-60) Cholesterol/HDL Ratio 2.6 Lipase 332 U/L (73-393) Thyroid Stimulating Hormone (TSH) 1.574 uIU/mL (0.358-3.74) Glucose (Fingerstick) 98 mg/dL (70-99) Test 02/03/19 20:30 02/03/19 21:04 02/03/19 23:15 02/04/19 05:00 Urine Collection Type Unknown Urine Color Yellow Urine Clarity Clear Urine pH 6.0 Urine Specific [place] 1.020 Urine Protein >=300 mg/dL (NEG-TRACE) Urine Glucose (UA) Negative mg/dL (NEG) Urine Ketones (Stick) Negative mg/dL (NEG) Urine Blood Trace (NEG) Urine Nitrite Negative (NEG) Urine Bilirubin Small (NEG) Urine Urobilinogen Dipstick 1.0 mg/dL (0.2 mg/dL) Urine Leukocyte Esterase Small (NEG) Urine RBC Occ /HPF (0-2) Urine WBC 20-40 /HPF (0-4) Urine Squamous Epithelial Cells Many /LPF Urine Bacteria Many /HPF (0-FEW) Glucose (Fingerstick) 126 mg/dL (70-99) Heparin Anti-Xa Act, Unfractionated < 0.10 IU/mL (0.30-0.70) 0.27 IU/mL (0.30-0.70) White Blood Count 9.9 x10^3/uL (4.0-11.0) Red Blood Count 4.12 x10^6/uL (3.50-5.40) Hemoglobin 11.5 g/dL (12.0-15.5) Hematocrit 36.5 % (36.0-47.0) Mean Corpuscular Volume 89 fL (79-100) Mean Corpuscular Hemoglobin 28 pg (25-35) Mean Corpuscular Hemoglobin Concent 31 g/dL (31-37) Red Cell Distribution Width 18.2 % (11.5-14.5) Platelet Count 198 x10^3/uL (140-400) Neutrophils (%) (Auto) 73 % (31-73) Lymphocytes (%) (Auto) 15 % (24-48) Monocytes (%) (Auto) 9 % (0-9) Eosinophils (%) (Auto) 2 % (0-3) Basophils (%) (Auto) 1 % (0-3) Neutrophils # (Auto) 7.2 x10^3/uL (1.8-7.7) Lymphocytes # (Auto) 1.5 x10^3/uL (1.0-4.8) Monocytes # (Auto) 0.9 x10^3/uL (0.0-1.1) Eosinophils # (Auto) 0.2 x10^3/uL (0.0-0.7) Basophils # (Auto) 0.1 x10^3/uL (0.0-0.2) Sodium Level 140 mmol/L (136-145) Potassium Level 4.2 mmol/L (3.5-5.1) Chloride Level 101 mmol/L (98-107) Carbon Dioxide Level 24 mmol/L (21-32) Anion Gap 15 (6-14) Blood Urea Nitrogen 57 mg/dL (7-20) Creatinine 10.2 mg/dL (0.6-1.0) Estimated GFR (Cockcroft-Gault) 4.6 Glucose Level 138 mg/dL (70-99) Calcium Level 8.8 mg/dL (8.5-10.1) Test 02/04/19 08:15 Glucose (Fingerstick) 83 mg/dL (70-99) Laboratory Tests Test 02/03/19 10:17 02/03/19 14:55 02/03/19 17:29 02/03/19 17:50 White Blood Count 10.0 x10^3/uL (4.0-11.0) Red Blood Count 4.34 x10^6/uL (3.50-5.40) Hemoglobin 12.2 g/dL (12.0-15.5) Hematocrit 37.9 % (36.0-47.0) Mean Corpuscular Volume 87 fL (79-100) Mean Corpuscular Hemoglobin 28 pg (25-35) Mean Corpuscular Hemoglobin Concent 32 g/dL (31-37) Red Cell Distribution Width 18.4 % (11.5-14.5) Platelet Count 206 x10^3/uL (140-400) Neutrophils (%) (Auto) 73 % (31-73) Lymphocytes (%) (Auto) 14 % (24-48) Monocytes (%) (Auto) 10 % (0-9) Eosinophils (%) (Auto) 2 % (0-3) Basophils (%) (Auto) 1 % (0-3) Neutrophils # (Auto) 7.4 x10^3/uL (1.8-7.7) Lymphocytes # (Auto) 1.4 x10^3/uL (1.0-4.8) Monocytes # (Auto) 1.0 x10^3/uL (0.0-1.1) Eosinophils # (Auto) 0.1 x10^3/uL (0.0-0.7) Basophils # (Auto) 0.1 x10^3/uL (0.0-0.2) Prothrombin Time 15.3 SEC (11.7-14.0) Prothromb Time International Ratio 1.2 (0.8-1.1) Sodium Level 142 mmol/L (136-145) Potassium Level 4.4 mmol/L (3.5-5.1) Chloride Level 102 mmol/L (98-107) Carbon Dioxide Level 25 mmol/L (21-32) Anion Gap 15 (6-14) Blood Urea Nitrogen 47 mg/dL (7-20) Creatinine 8.8 mg/dL (0.6-1.0) Estimated GFR (Cockcroft-Gault) 5.5 BUN/Creatinine Ratio 5 (6-20) Glucose Level 102 mg/dL (70-99) Calcium Level 9.3 mg/dL (8.5-10.1) Magnesium Level 1.9 mg/dL (1.8-2.4) Total Bilirubin 0.5 mg/dL (0.2-1.0) Aspartate Amino Transf (AST/SGOT) 19 U/L (15-37) Alanine Aminotransferase (ALT/SGPT) 11 U/L (14-59) Alkaline Phosphatase 130 U/L (46-116) Troponin I Quantitative 0.224 ng/mL (0.000-0.055) 0.246 ng/mL (0.000-0.055) 0.221 ng/mL (0.000-0.055) FN-Tlu-M-Type Natriuretic Peptide 44930 pg/mL (0-124) Total Protein 8.0 g/dL (6.4-8.2) Albumin 3.2 g/dL (3.4-5.0) Albumin/Globulin Ratio 0.7 (1.0-1.7) Triglycerides Level 73 mg/dL (0-150) Cholesterol Level 134 mg/dL (0-200) LDL Cholesterol, Calculated 67 mg/dL (0-100) VLDL Cholesterol, Calculated 15 mg/dL (0-40) Non-HDL Cholesterol Calculated 82 mg/dL (0-129) HDL Cholesterol 52 mg/dL (40-60) Cholesterol/HDL Ratio 2.6 Lipase 332 U/L (73-393) Thyroid Stimulating Hormone (TSH) 1.574 uIU/mL (0.358-3.74) Glucose (Fingerstick) 98 mg/dL (70-99) Test 02/03/19 20:30 02/03/19 21:04 02/03/19 23:15 02/04/19 05:00 Urine Collection Type Unknown Urine Color Yellow Urine Clarity Clear Urine pH 6.0 Urine Specific [place] 1.020 Urine Protein >=300 mg/dL (NEG-TRACE) Urine Glucose (UA) Negative mg/dL (NEG) Urine Ketones (Stick) Negative mg/dL (NEG) Urine Blood Trace (NEG) Urine Nitrite Negative (NEG) Urine Bilirubin Small (NEG) Urine Urobilinogen Dipstick 1.0 mg/dL (0.2 mg/dL) Urine Leukocyte Esterase Small (NEG) Urine RBC Occ /HPF (0-2) Urine WBC 20-40 /HPF (0-4) Urine Squamous Epithelial Cells Many /LPF Urine Bacteria Many /HPF (0-FEW) Glucose (Fingerstick) 126 mg/dL (70-99) Heparin Anti-Xa Act, Unfractionated < 0.10 IU/mL (0.30-0.70) 0.27 IU/mL (0.30-0.70) White Blood Count 9.9 x10^3/uL (4.0-11.0) Red Blood Count 4.12 x10^6/uL (3.50-5.40) Hemoglobin 11.5 g/dL (12.0-15.5) Hematocrit 36.5 % (36.0-47.0) Mean Corpuscular Volume 89 fL (79-100) Mean Corpuscular Hemoglobin 28 pg (25-35) Mean Corpuscular Hemoglobin Concent 31 g/dL (31-37) Red Cell Distribution Width 18.2 % (11.5-14.5) Platelet Count 198 x10^3/uL (140-400) Neutrophils (%) (Auto) 73 % (31-73) Lymphocytes (%) (Auto) 15 % (24-48) Monocytes (%) (Auto) 9 % (0-9) Eosinophils (%) (Auto) 2 % (0-3) Basophils (%) (Auto) 1 % (0-3) Neutrophils # (Auto) 7.2 x10^3/uL (1.8-7.7) Lymphocytes # (Auto) 1.5 x10^3/uL (1.0-4.8) Monocytes # (Auto) 0.9 x10^3/uL (0.0-1.1) Eosinophils # (Auto) 0.2 x10^3/uL (0.0-0.7) Basophils # (Auto) 0.1 x10^3/uL (0.0-0.2) Sodium Level 140 mmol/L (136-145) Potassium Level 4.2 mmol/L (3.5-5.1) Chloride Level 101 mmol/L (98-107) Carbon Dioxide Level 24 mmol/L (21-32) Anion Gap 15 (6-14) Blood Urea Nitrogen 57 mg/dL (7-20) Creatinine 10.2 mg/dL (0.6-1.0) Estimated GFR (Cockcroft-Gault) 4.6 Glucose Level 138 mg/dL (70-99) Calcium Level 8.8 mg/dL (8.5-10.1) Test 02/04/19 08:15 Glucose (Fingerstick) 83 mg/dL (70-99) VTE Prophylaxis Ordered VTE Prophylaxis Devices: Yes VTE Pharmacological Prophylaxi: No Assessment/Plan Assessment/Plan accel hypertension angina, unstable Has followed at [facility] before for cardiac, will r/o ACS, consutl CV, may need to call or review records in AM hx CAD, s/p CABG obesity, BMI 43 ESRD, on dialysis, consult Renal, follows with Angela, due to HD on 02/04 family reports some cognitive decline pt seen 02/03 in the ER, discussed with family in room and patient at length TIKA PUCKETT MD Feb 04, 2019 09:42
--- NOTE | 2019-02-04 10:14 | PDOC ---
PROGRESS NOTES Chief Complaint Chief Complaint NSTEMI, poss type 2, angina, unstable Has followed at [facility] before for cardiac, hx CAD, s/p CABG obesity, BMI 43 ESRD, on dialysis, due for HD some possible cognitive decline History of Present Illness History of Present Illness NPO for cardiac, consider cath today HD today Dr. Miller from renal has seen, will try to coordinate with contrast. is NPO, give IV PPI, ordered GI cocktail, is NPO, Vitals Vitals Vital Signs Date Time Temp Pulse Resp B/P (MAP) Pulse Ox O2 Delivery O2 Flow Rate FiO2 02/04/19 09:35 Nasal Cannula 2.0 02/04/19 07:42 98 02/04/19 07:00 97.7 65 18 138/60 (86) 97.7 Physical Exam General: Alert, Cooperative, mild distress Heart: Regular rate (SR with LBBB), Other (S4- 4/6 systolic murmur to JOEL border) Lungs: Clear, Other Abdomen: Normal bowel sounds, Soft Extremities: No clubbing, No edema Skin: No breakdown, No significant lesion Labs LABS Laboratory Tests Test 02/03/19 10:17 02/03/19 14:55 02/03/19 17:29 02/03/19 17:50 White Blood Count 10.0 x10^3/uL (4.0-11.0) Red Blood Count 4.34 x10^6/uL (3.50-5.40) Hemoglobin 12.2 g/dL (12.0-15.5) Hematocrit 37.9 % (36.0-47.0) Mean Corpuscular Volume 87 fL (79-100) Mean Corpuscular Hemoglobin 28 pg (25-35) Mean Corpuscular Hemoglobin Concent 32 g/dL (31-37) Red Cell Distribution Width 18.4 % (11.5-14.5) Platelet Count 206 x10^3/uL (140-400) Neutrophils (%) (Auto) 73 % (31-73) Lymphocytes (%) (Auto) 14 % (24-48) Monocytes (%) (Auto) 10 % (0-9) Eosinophils (%) (Auto) 2 % (0-3) Basophils (%) (Auto) 1 % (0-3) Neutrophils # (Auto) 7.4 x10^3/uL (1.8-7.7) Lymphocytes # (Auto) 1.4 x10^3/uL (1.0-4.8) Monocytes # (Auto) 1.0 x10^3/uL (0.0-1.1) Eosinophils # (Auto) 0.1 x10^3/uL (0.0-0.7) Basophils # (Auto) 0.1 x10^3/uL (0.0-0.2) Prothrombin Time 15.3 SEC (11.7-14.0) Prothromb Time International Ratio 1.2 (0.8-1.1) Sodium Level 142 mmol/L (136-145) Potassium Level 4.4 mmol/L (3.5-5.1) Chloride Level 102 mmol/L (98-107) Carbon Dioxide Level 25 mmol/L (21-32) Anion Gap 15 (6-14) Blood Urea Nitrogen 47 mg/dL (7-20) Creatinine 8.8 mg/dL (0.6-1.0) Estimated GFR (Cockcroft-Gault) 5.5 BUN/Creatinine Ratio 5 (6-20) Glucose Level 102 mg/dL (70-99) Calcium Level 9.3 mg/dL (8.5-10.1) Magnesium Level 1.9 mg/dL (1.8-2.4) Total Bilirubin 0.5 mg/dL (0.2-1.0) Aspartate Amino Transf (AST/SGOT) 19 U/L (15-37) Alanine Aminotransferase (ALT/SGPT) 11 U/L (14-59) Alkaline Phosphatase 130 U/L (46-116) Troponin I Quantitative 0.224 ng/mL (0.000-0.055) 0.246 ng/mL (0.000-0.055) 0.221 ng/mL (0.000-0.055) RJ-Vmj-J-Type Natriuretic Peptide 27575 pg/mL (0-124) Total Protein 8.0 g/dL (6.4-8.2) Albumin 3.2 g/dL (3.4-5.0) Albumin/Globulin Ratio 0.7 (1.0-1.7) Triglycerides Level 73 mg/dL (0-150) Cholesterol Level 134 mg/dL (0-200) LDL Cholesterol, Calculated 67 mg/dL (0-100) VLDL Cholesterol, Calculated 15 mg/dL (0-40) Non-HDL Cholesterol Calculated 82 mg/dL (0-129) HDL Cholesterol 52 mg/dL (40-60) Cholesterol/HDL Ratio 2.6 Lipase 332 U/L (73-393) Thyroid Stimulating Hormone (TSH) 1.574 uIU/mL (0.358-3.74) Glucose (Fingerstick) 98 mg/dL (70-99) Test 02/03/19 20:30 02/03/19 21:04 02/03/19 23:15 02/04/19 05:00 Urine Collection Type Unknown Urine Color Yellow Urine Clarity Clear Urine pH 6.0 Urine Specific [place] 1.020 Urine Protein >=300 mg/dL (NEG-TRACE) Urine Glucose (UA) Negative mg/dL (NEG) Urine Ketones (Stick) Negative mg/dL (NEG) Urine Blood Trace (NEG) Urine Nitrite Negative (NEG) Urine Bilirubin Small (NEG) Urine Urobilinogen Dipstick 1.0 mg/dL (0.2 mg/dL) Urine Leukocyte Esterase Small (NEG) Urine RBC Occ /HPF (0-2) Urine WBC 20-40 /HPF (0-4) Urine Squamous Epithelial Cells Many /LPF Urine Bacteria Many /HPF (0-FEW) Glucose (Fingerstick) 126 mg/dL (70-99) Heparin Anti-Xa Act, Unfractionated < 0.10 IU/mL (0.30-0.70) 0.27 IU/mL (0.30-0.70) White Blood Count 9.9 x10^3/uL (4.0-11.0) Red Blood Count 4.12 x10^6/uL (3.50-5.40) Hemoglobin 11.5 g/dL (12.0-15.5) Hematocrit 36.5 % (36.0-47.0) Mean Corpuscular Volume 89 fL (79-100) Mean Corpuscular Hemoglobin 28 pg (25-35) Mean Corpuscular Hemoglobin Concent 31 g/dL (31-37) Red Cell Distribution Width 18.2 % (11.5-14.5) Platelet Count 198 x10^3/uL (140-400) Neutrophils (%) (Auto) 73 % (31-73) Lymphocytes (%) (Auto) 15 % (24-48) Monocytes (%) (Auto) 9 % (0-9) Eosinophils (%) (Auto) 2 % (0-3) Basophils (%) (Auto) 1 % (0-3) Neutrophils # (Auto) 7.2 x10^3/uL (1.8-7.7) Lymphocytes # (Auto) 1.5 x10^3/uL (1.0-4.8) Monocytes # (Auto) 0.9 x10^3/uL (0.0-1.1) Eosinophils # (Auto) 0.2 x10^3/uL (0.0-0.7) Basophils # (Auto) 0.1 x10^3/uL (0.0-0.2) Sodium Level 140 mmol/L (136-145) Potassium Level 4.2 mmol/L (3.5-5.1) Chloride Level 101 mmol/L (98-107) Carbon Dioxide Level 24 mmol/L (21-32) Anion Gap 15 (6-14) Blood Urea Nitrogen 57 mg/dL (7-20) Creatinine 10.2 mg/dL (0.6-1.0) Estimated GFR (Cockcroft-Gault) 4.6 Glucose Level 138 mg/dL (70-99) Calcium Level 8.8 mg/dL (8.5-10.1) Test 02/04/19 08:15 Glucose (Fingerstick) 83 mg/dL (70-99) Assessment and Plan Assessmemt and Plan Problems Medical Problems: (1) Chest pain Status: Acute (2) End stage renal disease on dialysis Status: Acute Comment Review of Relevant I have reviewed the following items caroline (where applicable) has been applied. Labs Laboratory Tests Test 02/03/19 10:17 02/03/19 14:55 02/03/19 17:29 02/03/19 17:50 White Blood Count 10.0 x10^3/uL (4.0-11.0) Red Blood Count 4.34 x10^6/uL (3.50-5.40) Hemoglobin 12.2 g/dL (12.0-15.5) Hematocrit 37.9 % (36.0-47.0) Mean Corpuscular Volume 87 fL (79-100) Mean Corpuscular Hemoglobin 28 pg (25-35) Mean Corpuscular Hemoglobin Concent 32 g/dL (31-37) Red Cell Distribution Width 18.4 % (11.5-14.5) Platelet Count 206 x10^3/uL (140-400) Neutrophils (%) (Auto) 73 % (31-73) Lymphocytes (%) (Auto) 14 % (24-48) Monocytes (%) (Auto) 10 % (0-9) Eosinophils (%) (Auto) 2 % (0-3) Basophils (%) (Auto) 1 % (0-3) Neutrophils # (Auto) 7.4 x10^3/uL (1.8-7.7) Lymphocytes # (Auto) 1.4 x10^3/uL (1.0-4.8) Monocytes # (Auto) 1.0 x10^3/uL (0.0-1.1) Eosinophils # (Auto) 0.1 x10^3/uL (0.0-0.7) Basophils # (Auto) 0.1 x10^3/uL (0.0-0.2) Prothrombin Time 15.3 SEC (11.7-14.0) Prothromb Time International Ratio 1.2 (0.8-1.1) Sodium Level 142 mmol/L (136-145) Potassium Level 4.4 mmol/L (3.5-5.1) Chloride Level 102 mmol/L (98-107) Carbon Dioxide Level 25 mmol/L (21-32) Anion Gap 15 (6-14) Blood Urea Nitrogen 47 mg/dL (7-20) Creatinine 8.8 mg/dL (0.6-1.0) Estimated GFR (Cockcroft-Gault) 5.5 BUN/Creatinine Ratio 5 (6-20) Glucose Level 102 mg/dL (70-99) Calcium Level 9.3 mg/dL (8.5-10.1) Magnesium Level 1.9 mg/dL (1.8-2.4) Total Bilirubin 0.5 mg/dL (0.2-1.0) Aspartate Amino Transf (AST/SGOT) 19 U/L (15-37) Alanine Aminotransferase (ALT/SGPT) 11 U/L (14-59) Alkaline Phosphatase 130 U/L (46-116) Troponin I Quantitative 0.224 ng/mL (0.000-0.055) 0.246 ng/mL (0.000-0.055) 0.221 ng/mL (0.000-0.055) SY-Quk-Y-Type Natriuretic Peptide 08479 pg/mL (0-124) Total Protein 8.0 g/dL (6.4-8.2) Albumin 3.2 g/dL (3.4-5.0) Albumin/Globulin Ratio 0.7 (1.0-1.7) Triglycerides Level 73 mg/dL (0-150) Cholesterol Level 134 mg/dL (0-200) LDL Cholesterol, Calculated 67 mg/dL (0-100) VLDL Cholesterol, Calculated 15 mg/dL (0-40) Non-HDL Cholesterol Calculated 82 mg/dL (0-129) HDL Cholesterol 52 mg/dL (40-60) Cholesterol/HDL Ratio 2.6 Lipase 332 U/L (73-393) Thyroid Stimulating Hormone (TSH) 1.574 uIU/mL (0.358-3.74) Glucose (Fingerstick) 98 mg/dL (70-99) Test 02/03/19 20:30 02/03/19 21:04 02/03/19 23:15 02/04/19 05:00 Urine Collection Type Unknown Urine Color Yellow Urine Clarity Clear Urine pH 6.0 Urine Specific [place] 1.020 Urine Protein >=300 mg/dL (NEG-TRACE) Urine Glucose (UA) Negative mg/dL (NEG) Urine Ketones (Stick) Negative mg/dL (NEG) Urine Blood Trace (NEG) Urine Nitrite Negative (NEG) Urine Bilirubin Small (NEG) Urine Urobilinogen Dipstick 1.0 mg/dL (0.2 mg/dL) Urine Leukocyte Esterase Small (NEG) Urine RBC Occ /HPF (0-2) Urine WBC 20-40 /HPF (0-4) Urine Squamous Epithelial Cells Many /LPF Urine Bacteria Many /HPF (0-FEW) Glucose (Fingerstick) 126 mg/dL (70-99) Heparin Anti-Xa Act, Unfractionated < 0.10 IU/mL (0.30-0.70) 0.27 IU/mL (0.30-0.70) White Blood Count 9.9 x10^3/uL (4.0-11.0) Red Blood Count 4.12 x10^6/uL (3.50-5.40) Hemoglobin 11.5 g/dL (12.0-15.5) Hematocrit 36.5 % (36.0-47.0) Mean Corpuscular Volume 89 fL (79-100) Mean Corpuscular Hemoglobin 28 pg (25-35) Mean Corpuscular Hemoglobin Concent 31 g/dL (31-37) Red Cell Distribution Width 18.2 % (11.5-14.5) Platelet Count 198 x10^3/uL (140-400) Neutrophils (%) (Auto) 73 % (31-73) Lymphocytes (%) (Auto) 15 % (24-48) Monocytes (%) (Auto) 9 % (0-9) Eosinophils (%) (Auto) 2 % (0-3) Basophils (%) (Auto) 1 % (0-3) Neutrophils # (Auto) 7.2 x10^3/uL (1.8-7.7) Lymphocytes # (Auto) 1.5 x10^3/uL (1.0-4.8) Monocytes # (Auto) 0.9 x10^3/uL (0.0-1.1) Eosinophils # (Auto) 0.2 x10^3/uL (0.0-0.7) Basophils # (Auto) 0.1 x10^3/uL (0.0-0.2) Sodium Level 140 mmol/L (136-145) Potassium Level 4.2 mmol/L (3.5-5.1) Chloride Level 101 mmol/L (98-107) Carbon Dioxide Level 24 mmol/L (21-32) Anion Gap 15 (6-14) Blood Urea Nitrogen 57 mg/dL (7-20) Creatinine 10.2 mg/dL (0.6-1.0) Estimated GFR (Cockcroft-Gault) 4.6 Glucose Level 138 mg/dL (70-99) Calcium Level 8.8 mg/dL (8.5-10.1) Test 02/04/19 08:15 Glucose (Fingerstick) 83 mg/dL (70-99) Laboratory Tests Test 02/03/19 10:17 02/03/19 14:55 02/03/19 17:29 02/03/19 17:50 White Blood Count 10.0 x10^3/uL (4.0-11.0) Red Blood Count 4.34 x10^6/uL (3.50-5.40) Hemoglobin 12.2 g/dL (12.0-15.5) Hematocrit 37.9 % (36.0-47.0) Mean Corpuscular Volume 87 fL (79-100) Mean Corpuscular Hemoglobin 28 pg (25-35) Mean Corpuscular Hemoglobin Concent 32 g/dL (31-37) Red Cell Distribution Width 18.4 % (11.5-14.5) Platelet Count 206 x10^3/uL (140-400) Neutrophils (%) (Auto) 73 % (31-73) Lymphocytes (%) (Auto) 14 % (24-48) Monocytes (%) (Auto) 10 % (0-9) Eosinophils (%) (Auto) 2 % (0-3) Basophils (%) (Auto) 1 % (0-3) Neutrophils # (Auto) 7.4 x10^3/uL (1.8-7.7) Lymphocytes # (Auto) 1.4 x10^3/uL (1.0-4.8) Monocytes # (Auto) 1.0 x10^3/uL (0.0-1.1) Eosinophils # (Auto) 0.1 x10^3/uL (0.0-0.7) Basophils # (Auto) 0.1 x10^3/uL (0.0-0.2) Prothrombin Time 15.3 SEC (11.7-14.0) Prothromb Time International Ratio 1.2 (0.8-1.1) Sodium Level 142 mmol/L (136-145) Potassium Level 4.4 mmol/L (3.5-5.1) Chloride Level 102 mmol/L (98-107) Carbon Dioxide Level 25 mmol/L (21-32) Anion Gap 15 (6-14) Blood Urea Nitrogen 47 mg/dL (7-20) Creatinine 8.8 mg/dL (0.6-1.0) Estimated GFR (Cockcroft-Gault) 5.5 BUN/Creatinine Ratio 5 (6-20) Glucose Level 102 mg/dL (70-99) Calcium Level 9.3 mg/dL (8.5-10.1) Magnesium Level 1.9 mg/dL (1.8-2.4) Total Bilirubin 0.5 mg/dL (0.2-1.0) Aspartate Amino Transf (AST/SGOT) 19 U/L (15-37) Alanine Aminotransferase (ALT/SGPT) 11 U/L (14-59) Alkaline Phosphatase 130 U/L (46-116) Troponin I Quantitative 0.224 ng/mL (0.000-0.055) 0.246 ng/mL (0.000-0.055) 0.221 ng/mL (0.000-0.055) YC-Bxd-S-Type Natriuretic Peptide 96073 pg/mL (0-124) Total Protein 8.0 g/dL (6.4-8.2) Albumin 3.2 g/dL (3.4-5.0) Albumin/Globulin Ratio 0.7 (1.0-1.7) Triglycerides Level 73 mg/dL (0-150) Cholesterol Level 134 mg/dL (0-200) LDL Cholesterol, Calculated 67 mg/dL (0-100) VLDL Cholesterol, Calculated 15 mg/dL (0-40) Non-HDL Cholesterol Calculated 82 mg/dL (0-129) HDL Cholesterol 52 mg/dL (40-60) Cholesterol/HDL Ratio 2.6 Lipase 332 U/L (73-393) Thyroid Stimulating Hormone (TSH) 1.574 uIU/mL (0.358-3.74) Glucose (Fingerstick) 98 mg/dL (70-99) Test 02/03/19 20:30 02/03/19 21:04 02/03/19 23:15 02/04/19 05:00 Urine Collection Type Unknown Urine Color Yellow Urine Clarity Clear Urine pH 6.0 Urine Specific [place] 1.020 Urine Protein >=300 mg/dL (NEG-TRACE) Urine Glucose (UA) Negative mg/dL (NEG) Urine Ketones (Stick) Negative mg/dL (NEG) Urine Blood Trace (NEG) Urine Nitrite Negative (NEG) Urine Bilirubin Small (NEG) Urine Urobilinogen Dipstick 1.0 mg/dL (0.2 mg/dL) Urine Leukocyte Esterase Small (NEG) Urine RBC Occ /HPF (0-2) Urine WBC 20-40 /HPF (0-4) Urine Squamous Epithelial Cells Many /LPF Urine Bacteria Many /HPF (0-FEW) Glucose (Fingerstick) 126 mg/dL (70-99) Heparin Anti-Xa Act, Unfractionated < 0.10 IU/mL (0.30-0.70) 0.27 IU/mL (0.30-0.70) White Blood Count 9.9 x10^3/uL (4.0-11.0) Red Blood Count 4.12 x10^6/uL (3.50-5.40) Hemoglobin 11.5 g/dL (12.0-15.5) Hematocrit 36.5 % (36.0-47.0) Mean Corpuscular Volume 89 fL (79-100) Mean Corpuscular Hemoglobin 28 pg (25-35) Mean Corpuscular Hemoglobin Concent 31 g/dL (31-37) Red Cell Distribution Width 18.2 % (11.5-14.5) Platelet Count 198 x10^3/uL (140-400) Neutrophils (%) (Auto) 73 % (31-73) Lymphocytes (%) (Auto) 15 % (24-48) Monocytes (%) (Auto) 9 % (0-9) Eosinophils (%) (Auto) 2 % (0-3) Basophils (%) (Auto) 1 % (0-3) Neutrophils # (Auto) 7.2 x10^3/uL (1.8-7.7) Lymphocytes # (Auto) 1.5 x10^3/uL (1.0-4.8) Monocytes # (Auto) 0.9 x10^3/uL (0.0-1.1) Eosinophils # (Auto) 0.2 x10^3/uL (0.0-0.7) Basophils # (Auto) 0.1 x10^3/uL (0.0-0.2) Sodium Level 140 mmol/L (136-145) Potassium Level 4.2 mmol/L (3.5-5.1) Chloride Level 101 mmol/L (98-107) Carbon Dioxide Level 24 mmol/L (21-32) Anion Gap 15 (6-14) Blood Urea Nitrogen 57 mg/dL (7-20) Creatinine 10.2 mg/dL (0.6-1.0) Estimated GFR (Cockcroft-Gault) 4.6 Glucose Level 138 mg/dL (70-99) Calcium Level 8.8 mg/dL (8.5-10.1) Test 02/04/19 08:15 Glucose (Fingerstick) 83 mg/dL (70-99) Medications Current Medications Aspirin (Children'S Aspirin) 324 mg 1X ONCE PO Last administered on 02/03/19at 10:44; Start 02/03/19 at 10:00; Stop 02/03/19 at 10:04; Status DC Morphine Sulfate (Morphine Sulfate) 4 mg PRN Q15MIN PRN IV/SQ PAIN GREATER THAN 3/10 Last administered on 02/03/19at 10:45; Start 02/03/19 at 10:00; Stop 02/04/19 at 09:59; Status DC Sodium Chloride 1,000 ml @ 100 mls/hr Q10H IV Last administered on 02/03/19at 10:45; Start 02/03/19 at 09:56; Stop 02/03/19 at 19:55; Status DC Ondansetron HCl (Zofran) 4 mg PRN Q8HRS PRN IV NAUSEA/VOMITING; Start 02/03/19 at 11:45; Stop 02/04/19 at 11:44 Morphine Sulfate (Morphine Sulfate) 4 mg PRN Q2HR PRN IV PAIN Last administered on 02/04/19at 09:35; Start 02/03/19 at 11:45; Stop 02/04/19 at 11:44 Aspirin (Children'S Aspirin) 81 mg DAILY PO ; Start 02/04/19 at 09:00 Atorvastatin Calcium (Lipitor) 40 mg DAILY PO ; Start 02/04/19 at 09:00; Status UNV Cinacalcet (Sensipar) 30 mg DAILY PO ; Start 02/04/19 at 09:00 Vitamin B Complex/ Vitamin C (Jacquie-Debbi) 1 tab DAILY PO ; Start 02/04/19 at 09:00 Glipizide (Glucotrol) 2.5 mg DAILYWBKFT PO ; Start 02/04/19 at 08:00 Latanoprost (Xalatan) 1 drop QHS OU Last administered on 02/03/19at 21:00; Start 02/03/19 at 21:00 Linagliptin (Tradjenta) 5 mg DAILY PO ; Start 02/04/19 at 09:00 Losartan Potassium (Cozaar) 50 mg DAILY PO ; Start 02/04/19 at 09:00 Nitroglycerin (Nitrostat) 0.4 mg PRN Q5MIN PRN SL CHEST PAIN; Start 02/03/19 at 15:00 Sodium Bicarbonate (Sodium Bicarbonate) 650 mg BID PO Last administered on 02/03/19at 21:01; Start 02/03/19 at 21:00 Ticagrelor (Brilinta) 90 mg BID PO ; Start 02/04/19 at 09:00; Status Cancel Ketorolac Tromethamine (Acular) 1 drop DAILY OU ; Start 02/04/19 at 09:00; Status UNV Non-Formulary Medication (Budesonide/ Formoterol Fumarate (Symbicort 160-4.5 Mcg Inhaler)) 2 puff BID IH ; Start 02/03/19 at 21:00; Status UNV Carvedilol (Coreg) 25 mg BIDWMEALS PO Last administered on 02/03/19at 18:18; Start 02/03/19 at 17:00 Non-Formulary Medication (Difluprednate (Durezol)) 5 ml TID OP ; Start 02/03/19 at 21:00; Status UNV Pantoprazole Sodium (Protonix) 40 mg DAILYAC PO ; Start 02/04/19 at 07:30 Albuterol Sulfate (Ventolin Neb Soln) 2.5 mg RTQID NEB Last administered on 02/04/19at 07:40; Start 02/03/19 at 20:00 Budesonide (Pulmicort) 0.5 mg RTBID NEB Last administered on 02/04/19at 07:40; Start 02/03/19 at 20:00 Hydralazine HCl (Apresoline Inj) 10 mg PRN Q4HRS PRN IVP ELEVATED BP, SEE COMMENTS; Start 02/03/19 at 15:15 Clopidogrel Bisulfate (Plavix) 75 mg 1X ONCE PO Last administered on 02/03/19at 16:23; Start 02/03/19 at 15:30; Stop 02/03/19 at 16:46; Status DC Atorvastatin Calcium (Lipitor) 40 mg QHS PO Last administered on 02/03/19at 21:01; Start 02/03/19 at 21:00 Heparin Sodium (Porcine) (Heparin Sodium) 4,000 unit 1X ONCE IV Last administered on 02/03/19at 17:13; Start 02/03/19 at 16:45; Stop 02/03/19 at 16:46; Status DC Heparin Sodium/ Dextrose 500 ml @ 20 mls/hr CONT PRN PRN IV SEE PROTOCOL Last administered on 02/03/19at 17:15; Start 02/03/19 at 16:40 Heparin Sodium (Porcine) (Heparin Sodium) 2,900 unit PRN Q6HRS PRN IV FOR UFH LEVEL LESS THAN 0.2 Last administered on 02/04/19at 00:08; Start 02/03/19 at 16:45 Albuterol Sulfate (Ventolin Neb Soln) 2.5 mg STK-MED ONCE .ROUTE ; Start 02/03/19 at 18:25; Stop 02/03/19 at 18:25; Status DC Clopidogrel Bisulfate (Plavix) 75 mg DAILY PO ; Start 02/04/19 at 09:00 Sevelamer Carbonate (Renvela) 800 mg TIDWMEALS PO ; Start 02/04/19 at 08:00 Info (Anti-Coagulation Monitoring By Pharmacy) 1 each PRN DAILY PRN MC SEE COMMENTS; Start 02/04/19 at 09:30 Active Scripts Active Nitrostat (Nitroglycerin) 0.4 Mg Tab.subl 0.4 Mg SL PRN Q5MIN PRN 20 Days Reported Renvela (Sevelamer Carbonate) 800 Mg Tablet 800 Mg PO TIDWMEALS Clopidogrel (Clopidogrel Bisulfate) 75 Mg Tablet 75 Mg PO DAILY Protonix (Pantoprazole Sodium) 20 Mg Tablet.dr 1 Tab PO DAILY Carvedilol 25 Mg Tablet 25 Mg PO BIDWMEALS Losartan Potassium 50 Mg Tablet 50 Mg PO DAILY Sensipar (Cinacalcet Hcl) 30 Mg Tablet 30 Mg PO DAILY Durezol (Difluprednate) 5 Ml Drops 5 Ml OP TID Bromsite (Bromfenac Sodium) 5 Ml Drops 5 Ml OP DAILY Latanoprost 2.5 Ml Drops 1 Drop EACHEYE QHS Symbicort 160-4.5 Mcg Inhaler (Budesonide/Formoterol Fumarate) 10.2 Gm Hfa.aer.ad 2 Puff IH BID Aspirin 81 Mg Tab.chew 1 Tab PO DAILY Glipizide 5 Mg Tablet 2.5 Mg PO DAILY Tradjenta (Linagliptin) 5 Mg Tablet 1 Tab PO DAILY Jacquie-Debbi Tablet (Folic Acid/Vitamin B Comp W-C) 0.8 Mg Tablet 0.8 Mg PO DAILY Sodium Bicarbonate 650 Mg Tablet 1 Tab PO BID Atorvastatin Calcium 40 Mg Tablet 1 Tab PO DAILY Vitals/I & O Vital Sign - Last 24 Hours 02/03/19 02/03/19 02/03/19 02/03/19 10:14 10:37 11:37 12:07 Temp 97.9 97.9 Pulse 81 64 60 62 Resp 18 15 16 18 B/P (MAP) 245/107 (153) 158/67 (97) 148/62 (90) 176/67 (103) Pulse Ox 98 95 95 98 O2 Delivery Room Air Room Air Room Air Room Air 02/03/19 02/03/19 02/03/19 02/03/19 13:07 13:42 14:07 14:37 Pulse 62 64 62 62 Resp 20 20 20 20 B/P (MAP) 166/72 (103) 121/56 (77) 117/55 (75) 128/85 (99) Pulse Ox 96 97 96 98 O2 Delivery Room Air Room Air Room Air Room Air 02/03/19 02/03/19 02/03/19 02/03/19 15:07 16:07 17:07 17:20 Temp 97.9 97.9 Pulse 62 62 60 71 Resp 20 20 20 18 B/P (MAP) 143/67 (92) 113/52 (72) 160/71 (100) 143/70 (94) Pulse Ox 95 96 94 96 O2 Delivery Room Air Room Air Room Air Room Air 02/03/19 02/03/19 02/03/19 02/03/19 18:18 18:32 19:13 19:17 Temp 98.0 98.0 Pulse 63 74 Resp 18 B/P (MAP) 147/67 (93) Pulse Ox 99 97 O2 Delivery Room Air Room Air Room Air 02/03/19 02/04/19 02/04/19 02/04/19 22:36 02:58 07:00 07:42 Temp 98.3 98.4 97.7 98.3 98.4 97.7 Pulse 64 67 65 Resp 18 16 18 B/P (MAP) 159/66 (97) 147/61 (89) 138/60 (86) Pulse Ox 96 98 92 98 O2 Delivery Room Air Nasal Cannula Room Air Nasal Cannula O2 Flow Rate 2.0 2.0 02/04/19 09:35 O2 Delivery Nasal Cannula O2 Flow Rate 2.0 Intake and Output 02/03/19 02/03/19 02/04/19 15:00 23:00 07:00 Intake Total 450 ml 180 ml Output Total 100 ml Balance 350 ml 180 ml TIKA PUCKETT MD Feb 04, 2019 10:13
[2019-02-04] MEDS ORDERED: PANTOPRAZOLE IV PUSH 40 MG VIAL. IVP ONE (10:15)
[2019-02-04] MEDS ORDERED: LIDO:MAALOX 1:1 20 ML SINGLE DOSE. PO PRN (10:15)
--- NOTE | 2019-02-04 10:39 | PDOC2 ---
CONSULT Date of Consult Date of Consult DATE: 02/04/19 TIME: 10:34 Reason for Consult Reason for Consult: ESRD AND CHEST PAIN Referring Physician Referring Physician: ITALO Identification/Chief Complaint Chief Complaint CHEST PAIN Source Source: Chart review, Patient History of Present Illness Reason for Visit: THIS IS A 63 YR OLD ESRD PT WITH CHEST PAIN. SHE HAS ALSO HAD SOME SOB. HAS BEEN COUGHING FOR DAYS. SOME PHLEGM PRODUCTION NOTED. HAS OP HD ON TTS. CXRAY IS NEGATIVE FOR ACUTE FINDINGS. CARDIAC HX NOTABLE FOR PTCA AND STENT WELL AND TAVR AT [facility] ALL EARLIER THIS YEAR. LABS ARE C/W ESRD Past Medical History Cardiovascular: AFIB, CAD, CHF, HTN, Hyperlipidemia, Aortic stenosis Pulmonary: COPD, Other CENTRAL NERVOUS SYSTEM: Periperal neuropathy GI: No pertinent hx Heme/Onc: Anemia NOS, Other Musculoskeletal: Osteoarthritis, Other Renal/: Chronic renal failure Endocrine: Diabetes Past Surgical History Past Surgical History: Hernia Repair, Other (R AV dialysis fistula, TAVR, RCEA, multiple PCIs) Family History Family History: Cancer Social History No ALCOHOL: none Drugs: None Lives: with Family Current Problem List Problem List Problems Medical Problems: (1) Chest pain Status: Acute (2) End stage renal disease on dialysis Status: Acute Current Medications Current Medications Current Medications Aspirin (Children'S Aspirin) 324 mg 1X ONCE PO Last administered on 02/03/19at 10:44; Start 02/03/19 at 10:00; Stop 02/03/19 at 10:04; Status DC Morphine Sulfate (Morphine Sulfate) 4 mg PRN Q15MIN PRN IV/SQ PAIN GREATER THAN 3/10 Last administered on 02/03/19at 10:45; Start 02/03/19 at 10:00; Stop 02/04/19 at 09:59; Status DC Sodium Chloride 1,000 ml @ 100 mls/hr Q10H IV Last administered on 02/03/19at 10:45; Start 02/03/19 at 09:56; Stop 02/03/19 at 19:55; Status DC Ondansetron HCl (Zofran) 4 mg PRN Q8HRS PRN IV NAUSEA/VOMITING; Start 02/03/19 at 11:45; Stop 02/04/19 at 11:44 Morphine Sulfate (Morphine Sulfate) 4 mg PRN Q2HR PRN IV PAIN Last administered on 02/04/19at 09:35; Start 02/03/19 at 11:45; Stop 02/04/19 at 11:44 Aspirin (Children'S Aspirin) 81 mg DAILY PO ; Start 02/04/19 at 09:00 Atorvastatin Calcium (Lipitor) 40 mg DAILY PO ; Start 02/04/19 at 09:00; Status UNV Cinacalcet (Sensipar) 30 mg DAILY PO ; Start 02/04/19 at 09:00 Vitamin B Complex/ Vitamin C (Jacquie-Debbi) 1 tab DAILY PO ; Start 02/04/19 at 09:00 Glipizide (Glucotrol) 2.5 mg DAILYWBKFT PO ; Start 02/04/19 at 08:00 Latanoprost (Xalatan) 1 drop QHS OU Last administered on 02/03/19at 21:00; Start 02/03/19 at 21:00 Linagliptin (Tradjenta) 5 mg DAILY PO ; Start 02/04/19 at 09:00 Losartan Potassium (Cozaar) 50 mg DAILY PO ; Start 02/04/19 at 09:00 Nitroglycerin (Nitrostat) 0.4 mg PRN Q5MIN PRN SL CHEST PAIN; Start 02/03/19 at 15:00 Sodium Bicarbonate (Sodium Bicarbonate) 650 mg BID PO Last administered on 02/03/19at 21:01; Start 02/03/19 at 21:00 Ticagrelor (Brilinta) 90 mg BID PO ; Start 02/04/19 at 09:00; Status Cancel Ketorolac Tromethamine (Acular) 1 drop DAILY OU ; Start 02/04/19 at 09:00; Status UNV Non-Formulary Medication (Budesonide/ Formoterol Fumarate (Symbicort 160-4.5 Mcg Inhaler)) 2 puff BID IH ; Start 02/03/19 at 21:00; Status UNV Carvedilol (Coreg) 25 mg BIDWMEALS PO Last administered on 02/03/19at 18:18; Start 02/03/19 at 17:00 Non-Formulary Medication (Difluprednate (Durezol)) 5 ml TID OP ; Start 02/03/19 at 21:00; Status UNV Pantoprazole Sodium (Protonix) 40 mg DAILYAC PO ; Start 02/04/19 at 07:30 Albuterol Sulfate (Ventolin Neb Soln) 2.5 mg RTQID NEB Last administered on 02/04/19at 07:40; Start 02/03/19 at 20:00 Budesonide (Pulmicort) 0.5 mg RTBID NEB Last administered on 02/04/19at 07:40; Start 02/03/19 at 20:00 Hydralazine HCl (Apresoline Inj) 10 mg PRN Q4HRS PRN IVP ELEVATED BP, SEE COMMENTS; Start 02/03/19 at 15:15 Clopidogrel Bisulfate (Plavix) 75 mg 1X ONCE PO Last administered on 02/03/19at 16:23; Start 02/03/19 at 15:30; Stop 02/03/19 at 16:46; Status DC Atorvastatin Calcium (Lipitor) 40 mg QHS PO Last administered on 02/03/19at 21:01; Start 02/03/19 at 21:00 Heparin Sodium (Porcine) (Heparin Sodium) 4,000 unit 1X ONCE IV Last administered on 02/03/19at 17:13; Start 02/03/19 at 16:45; Stop 02/03/19 at 16:46; Status DC Heparin Sodium/ Dextrose 500 ml @ 20 mls/hr CONT PRN PRN IV SEE PROTOCOL Last administered on 02/03/19at 17:15; Start 02/03/19 at 16:40 Heparin Sodium (Porcine) (Heparin Sodium) 2,900 unit PRN Q6HRS PRN IV FOR UFH LEVEL LESS THAN 0.2 Last administered on 02/04/19at 00:08; Start 02/03/19 at 16:45 Albuterol Sulfate (Ventolin Neb Soln) 2.5 mg STK-MED ONCE .ROUTE ; Start 02/03/19 at 18:25; Stop 02/03/19 at 18:25; Status DC Clopidogrel Bisulfate (Plavix) 75 mg DAILY PO ; Start 02/04/19 at 09:00 Sevelamer Carbonate (Renvela) 800 mg TIDWMEALS PO ; Start 02/04/19 at 08:00 Info (Anti-Coagulation Monitoring By Pharmacy) 1 each PRN DAILY PRN MC SEE COMMENTS; Start 02/04/19 at 09:30 Multi-Ingredient Mouthwash/Gargle (Gi Cocktail) 20 ml PRN QID PRN PO CHEST PAIN; Start 02/04/19 at 10:15 Pantoprazole Sodium (PROTONIX VIAL for IV PUSH) 40 mg 1X ONCE IVP ; Start 02/04/19 at 10:15; Stop 02/04/19 at 10:16; Status DC Active Scripts Active Nitrostat (Nitroglycerin) 0.4 Mg Tab.subl 0.4 Mg SL PRN Q5MIN PRN 20 Days Reported Renvela (Sevelamer Carbonate) 800 Mg Tablet 800 Mg PO TIDWMEALS Clopidogrel (Clopidogrel Bisulfate) 75 Mg Tablet 75 Mg PO DAILY Protonix (Pantoprazole Sodium) 20 Mg Tablet.dr 1 Tab PO DAILY Carvedilol 25 Mg Tablet 25 Mg PO BIDWMEALS Losartan Potassium 50 Mg Tablet 50 Mg PO DAILY Sensipar (Cinacalcet Hcl) 30 Mg Tablet 30 Mg PO DAILY Durezol (Difluprednate) 5 Ml Drops 5 Ml OP TID Bromsite (Bromfenac Sodium) 5 Ml Drops 5 Ml OP DAILY Latanoprost 2.5 Ml Drops 1 Drop EACHEYE QHS Symbicort 160-4.5 Mcg Inhaler (Budesonide/Formoterol Fumarate) 10.2 Gm Hfa.aer.ad 2 Puff IH BID Aspirin 81 Mg Tab.chew 1 Tab PO DAILY Glipizide 5 Mg Tablet 2.5 Mg PO DAILY Tradjenta (Linagliptin) 5 Mg Tablet 1 Tab PO DAILY Jacquie-Debbi Tablet (Folic Acid/Vitamin B Comp W-C) 0.8 Mg Tablet 0.8 Mg PO DAILY Sodium Bicarbonate 650 Mg Tablet 1 Tab PO BID Atorvastatin Calcium 40 Mg Tablet 1 Tab PO DAILY Allergies Allergies: Coded Allergies: Iodine and Iodide Containing Produc (Verified Allergy, Severe, swells up & itches, 02/13/18) shellfish derived (Verified Allergy, Intermediate, "SEAFOOD", 02/13/18) ROS General: YES: Fatigue, Appetite PSYCHOLOGICAL ROS: YES: Anxiety Eyes: Yes Decreased vision ALLERGY AND IMMUNOLOGY: YES: Seasonal Allergies Respiratory: YES: Cough, Shortness of breath Cardiovascular: yes Chest Pain Gastrointestinal: Yes Constipation Genitourinary: YES Other (ANURIA) Musculoskeletal: Yes Muscular Weakness Skin: Yes Dry Skin Physical Exam Physical Exam ARM ACCESS WITH A GOOD THRILL AND BRUIT General: Alert, Oriented X3, Cooperative, No acute distress HEENT: Atraumatic, PERRLA Lungs: Clear to auscultation Heart: Regular rate Abdomen: Normal bowel sounds, Soft, No tenderness Extremities: No clubbing Skin: No rashes Neuro: Normal speech, Sensation intact, Cranial nerves 3-12 NL Psych/Mental Status: Mental status NL, Mood NL MUSCULOSKELETAL: No joint tenderness, No deformity, No swelling Vitals VITALS Vital Signs Date Time Temp Pulse Resp B/P (MAP) Pulse Ox O2 Delivery O2 Flow Rate FiO2 02/04/19 09:35 Nasal Cannula 2.0 02/04/19 07:42 98 02/04/19 07:00 97.7 65 18 138/60 (86) 97.7 Labs Labs Laboratory Tests Test 02/03/19 10:17 02/03/19 14:55 02/03/19 17:29 02/03/19 17:50 White Blood Count 10.0 x10^3/uL (4.0-11.0) Red Blood Count 4.34 x10^6/uL (3.50-5.40) Hemoglobin 12.2 g/dL (12.0-15.5) Hematocrit 37.9 % (36.0-47.0) Mean Corpuscular Volume 87 fL (79-100) Mean Corpuscular Hemoglobin 28 pg (25-35) Mean Corpuscular Hemoglobin Concent 32 g/dL (31-37) Red Cell Distribution Width 18.4 % (11.5-14.5) Platelet Count 206 x10^3/uL (140-400) Neutrophils (%) (Auto) 73 % (31-73) Lymphocytes (%) (Auto) 14 % (24-48) Monocytes (%) (Auto) 10 % (0-9) Eosinophils (%) (Auto) 2 % (0-3) Basophils (%) (Auto) 1 % (0-3) Neutrophils # (Auto) 7.4 x10^3/uL (1.8-7.7) Lymphocytes # (Auto) 1.4 x10^3/uL (1.0-4.8) Monocytes # (Auto) 1.0 x10^3/uL (0.0-1.1) Eosinophils # (Auto) 0.1 x10^3/uL (0.0-0.7) Basophils # (Auto) 0.1 x10^3/uL (0.0-0.2) Prothrombin Time 15.3 SEC (11.7-14.0) Prothromb Time International Ratio 1.2 (0.8-1.1) Sodium Level 142 mmol/L (136-145) Potassium Level 4.4 mmol/L (3.5-5.1) Chloride Level 102 mmol/L (98-107) Carbon Dioxide Level 25 mmol/L (21-32) Anion Gap 15 (6-14) Blood Urea Nitrogen 47 mg/dL (7-20) Creatinine 8.8 mg/dL (0.6-1.0) Estimated GFR (Cockcroft-Gault) 5.5 BUN/Creatinine Ratio 5 (6-20) Glucose Level 102 mg/dL (70-99) Calcium Level 9.3 mg/dL (8.5-10.1) Magnesium Level 1.9 mg/dL (1.8-2.4) Total Bilirubin 0.5 mg/dL (0.2-1.0) Aspartate Amino Transf (AST/SGOT) 19 U/L (15-37) Alanine Aminotransferase (ALT/SGPT) 11 U/L (14-59) Alkaline Phosphatase 130 U/L (46-116) Troponin I Quantitative 0.224 ng/mL (0.000-0.055) 0.246 ng/mL (0.000-0.055) 0.221 ng/mL (0.000-0.055) OT-Oyc-H-Type Natriuretic Peptide 84229 pg/mL (0-124) Total Protein 8.0 g/dL (6.4-8.2) Albumin 3.2 g/dL (3.4-5.0) Albumin/Globulin Ratio 0.7 (1.0-1.7) Triglycerides Level 73 mg/dL (0-150) Cholesterol Level 134 mg/dL (0-200) LDL Cholesterol, Calculated 67 mg/dL (0-100) VLDL Cholesterol, Calculated 15 mg/dL (0-40) Non-HDL Cholesterol Calculated 82 mg/dL (0-129) HDL Cholesterol 52 mg/dL (40-60) Cholesterol/HDL Ratio 2.6 Lipase 332 U/L (73-393) Thyroid Stimulating Hormone (TSH) 1.574 uIU/mL (0.358-3.74) Glucose (Fingerstick) 98 mg/dL (70-99) Test 02/03/19 20:30 02/03/19 21:04 02/03/19 23:15 02/04/19 05:00 Urine Collection Type Unknown Urine Color Yellow Urine Clarity Clear Urine pH 6.0 Urine Specific [place] 1.020 Urine Protein >=300 mg/dL (NEG-TRACE) Urine Glucose (UA) Negative mg/dL (NEG) Urine Ketones (Stick) Negative mg/dL (NEG) Urine Blood Trace (NEG) Urine Nitrite Negative (NEG) Urine Bilirubin Small (NEG) Urine Urobilinogen Dipstick 1.0 mg/dL (0.2 mg/dL) Urine Leukocyte Esterase Small (NEG) Urine RBC Occ /HPF (0-2) Urine WBC 20-40 /HPF (0-4) Urine Squamous Epithelial Cells Many /LPF Urine Bacteria Many /HPF (0-FEW) Glucose (Fingerstick) 126 mg/dL (70-99) Heparin Anti-Xa Act, Unfractionated < 0.10 IU/mL (0.30-0.70) 0.27 IU/mL (0.30-0.70) White Blood Count 9.9 x10^3/uL (4.0-11.0) Red Blood Count 4.12 x10^6/uL (3.50-5.40) Hemoglobin 11.5 g/dL (12.0-15.5) Hematocrit 36.5 % (36.0-47.0) Mean Corpuscular Volume 89 fL (79-100) Mean Corpuscular Hemoglobin 28 pg (25-35) Mean Corpuscular Hemoglobin Concent 31 g/dL (31-37) Red Cell Distribution Width 18.2 % (11.5-14.5) Platelet Count 198 x10^3/uL (140-400) Neutrophils (%) (Auto) 73 % (31-73) Lymphocytes (%) (Auto) 15 % (24-48) Monocytes (%) (Auto) 9 % (0-9) Eosinophils (%) (Auto) 2 % (0-3) Basophils (%) (Auto) 1 % (0-3) Neutrophils # (Auto) 7.2 x10^3/uL (1.8-7.7) Lymphocytes # (Auto) 1.5 x10^3/uL (1.0-4.8) Monocytes # (Auto) 0.9 x10^3/uL (0.0-1.1) Eosinophils # (Auto) 0.2 x10^3/uL (0.0-0.7) Basophils # (Auto) 0.1 x10^3/uL (0.0-0.2) Sodium Level 140 mmol/L (136-145) Potassium Level 4.2 mmol/L (3.5-5.1) Chloride Level 101 mmol/L (98-107) Carbon Dioxide Level 24 mmol/L (21-32) Anion Gap 15 (6-14) Blood Urea Nitrogen 57 mg/dL (7-20) Creatinine 10.2 mg/dL (0.6-1.0) Estimated GFR (Cockcroft-Gault) 4.6 Glucose Level 138 mg/dL (70-99) Calcium Level 8.8 mg/dL (8.5-10.1) Test 02/04/19 08:15 Glucose (Fingerstick) 83 mg/dL (70-99) Laboratory Tests Test 02/03/19 14:55 02/03/19 17:29 02/03/19 17:50 02/03/19 20:30 Troponin I Quantitative 0.246 ng/mL (0.000-0.055) 0.221 ng/mL (0.000-0.055) Glucose (Fingerstick) 98 mg/dL (70-99) Urine Collection Type Unknown Urine Color Yellow Urine Clarity Clear Urine pH 6.0 Urine Specific [place] 1.020 Urine Protein >=300 mg/dL (NEG-TRACE) Urine Glucose (UA) Negative mg/dL (NEG) Urine Ketones (Stick) Negative mg/dL (NEG) Urine Blood Trace (NEG) Urine Nitrite Negative (NEG) Urine Bilirubin Small (NEG) Urine Urobilinogen Dipstick 1.0 mg/dL (0.2 mg/dL) Urine Leukocyte Esterase Small (NEG) Urine RBC Occ /HPF (0-2) Urine WBC 20-40 /HPF (0-4) Urine Squamous Epithelial Cells Many /LPF Urine Bacteria Many /HPF (0-FEW) Test 02/03/19 21:04 02/03/19 23:15 02/04/19 05:00 02/04/19 08:15 Glucose (Fingerstick) 126 mg/dL (70-99) 83 mg/dL (70-99) Heparin Anti-Xa Act, Unfractionated < 0.10 IU/mL (0.30-0.70) 0.27 IU/mL (0.30-0.70) White Blood Count 9.9 x10^3/uL (4.0-11.0) Red Blood Count 4.12 x10^6/uL (3.50-5.40) Hemoglobin 11.5 g/dL (12.0-15.5) Hematocrit 36.5 % (36.0-47.0) Mean Corpuscular Volume 89 fL (79-100) Mean Corpuscular Hemoglobin 28 pg (25-35) Mean Corpuscular Hemoglobin Concent 31 g/dL (31-37) Red Cell Distribution Width 18.2 % (11.5-14.5) Platelet Count 198 x10^3/uL (140-400) Neutrophils (%) (Auto) 73 % (31-73) Lymphocytes (%) (Auto) 15 % (24-48) Monocytes (%) (Auto) 9 % (0-9) Eosinophils (%) (Auto) 2 % (0-3) Basophils (%) (Auto) 1 % (0-3) Neutrophils # (Auto) 7.2 x10^3/uL (1.8-7.7) Lymphocytes # (Auto) 1.5 x10^3/uL (1.0-4.8) Monocytes # (Auto) 0.9 x10^3/uL (0.0-1.1) Eosinophils # (Auto) 0.2 x10^3/uL (0.0-0.7) Basophils # (Auto) 0.1 x10^3/uL (0.0-0.2) Sodium Level 140 mmol/L (136-145) Potassium Level 4.2 mmol/L (3.5-5.1) Chloride Level 101 mmol/L (98-107) Carbon Dioxide Level 24 mmol/L (21-32) Anion Gap 15 (6-14) Blood Urea Nitrogen 57 mg/dL (7-20) Creatinine 10.2 mg/dL (0.6-1.0) Estimated GFR (Cockcroft-Gault) 4.6 Glucose Level 138 mg/dL (70-99) Calcium Level 8.8 mg/dL (8.5-10.1) Assessment/Plan Assessment/Plan IMP CHEST PAIN-MOST LIKELY COSTOCHONDRITIS-REPRODUCIBLE CAD HX WITH PTCA/STENT AND TAVR SUSPECT BRONCHITIS ANEMIA OF ESRD ESRD DM II HTN PLAN HD TODAY UF TO DW CARDIOLOGY EVAL AND TX CONSIDER SHORT COURSE OF STEROIDS AND ANTIBIOTICS WILL FOLLOW ELVIS NÚÑEZ MD Feb 04, 2019 10:39
--- NOTE | 2019-02-04 10:58 | EKG ---
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
[2019-02-04 11:00] VITALS: BP 175/92
--- NOTE | 2019-02-04 12:20 | PDOC ---
CARDIO Progress Notes Date and Time Date of Service 02/04/2019 Time of Evaluation 1150 Subjective Subjective: No Chest Pain, No shortness of breath, No Palpitations, Other (complains of cough and nausea/vomiting) Vitals Vitals Vital Signs Date Time Temp Pulse Resp B/P (MAP) Pulse Ox O2 Delivery O2 Flow Rate FiO2 02/04/19 11:36 99 Nasal Cannula 2.0 02/04/19 11:00 97.4 105 18 175/92 (119) 97.4 Weight Weight [ ] Input and Output Intake and Output Intake and Output 02/04/19 07:00 Intake Total 630 ml Output Total 100 ml Balance 530 ml Intake Oral 630 ml Output Urine Total 100 ml Laboratory Labs Laboratory Tests Test 02/03/19 14:55 02/03/19 17:29 02/03/19 17:50 02/03/19 20:30 Troponin I Quantitative 0.246 ng/mL (0.000-0.055) 0.221 ng/mL (0.000-0.055) Glucose (Fingerstick) 98 mg/dL (70-99) Urine Collection Type Unknown Urine Color Yellow Urine Clarity Clear Urine pH 6.0 Urine Specific [place] 1.020 Urine Protein >=300 mg/dL (NEG-TRACE) Urine Glucose (UA) Negative mg/dL (NEG) Urine Ketones (Stick) Negative mg/dL (NEG) Urine Blood Trace (NEG) Urine Nitrite Negative (NEG) Urine Bilirubin Small (NEG) Urine Urobilinogen Dipstick 1.0 mg/dL (0.2 mg/dL) Urine Leukocyte Esterase Small (NEG) Urine RBC Occ /HPF (0-2) Urine WBC 20-40 /HPF (0-4) Urine Squamous Epithelial Cells Many /LPF Urine Bacteria Many /HPF (0-FEW) Test 02/03/19 21:04 02/03/19 23:15 02/04/19 05:00 02/04/19 08:15 Glucose (Fingerstick) 126 mg/dL (70-99) 83 mg/dL (70-99) Heparin Anti-Xa Act, Unfractionated < 0.10 IU/mL (0.30-0.70) 0.27 IU/mL (0.30-0.70) White Blood Count 9.9 x10^3/uL (4.0-11.0) Red Blood Count 4.12 x10^6/uL (3.50-5.40) Hemoglobin 11.5 g/dL (12.0-15.5) Hematocrit 36.5 % (36.0-47.0) Mean Corpuscular Volume 89 fL (79-100) Mean Corpuscular Hemoglobin 28 pg (25-35) Mean Corpuscular Hemoglobin Concent 31 g/dL (31-37) Red Cell Distribution Width 18.2 % (11.5-14.5) Platelet Count 198 x10^3/uL (140-400) Neutrophils (%) (Auto) 73 % (31-73) Lymphocytes (%) (Auto) 15 % (24-48) Monocytes (%) (Auto) 9 % (0-9) Eosinophils (%) (Auto) 2 % (0-3) Basophils (%) (Auto) 1 % (0-3) Neutrophils # (Auto) 7.2 x10^3/uL (1.8-7.7) Lymphocytes # (Auto) 1.5 x10^3/uL (1.0-4.8) Monocytes # (Auto) 0.9 x10^3/uL (0.0-1.1) Eosinophils # (Auto) 0.2 x10^3/uL (0.0-0.7) Basophils # (Auto) 0.1 x10^3/uL (0.0-0.2) Sodium Level 140 mmol/L (136-145) Potassium Level 4.2 mmol/L (3.5-5.1) Chloride Level 101 mmol/L (98-107) Carbon Dioxide Level 24 mmol/L (21-32) Anion Gap 15 (6-14) Blood Urea Nitrogen 57 mg/dL (7-20) Creatinine 10.2 mg/dL (0.6-1.0) Estimated GFR (Cockcroft-Gault) 4.6 Glucose Level 138 mg/dL (70-99) Calcium Level 8.8 mg/dL (8.5-10.1) Test 02/04/19 12:10 Glucose (Fingerstick) 107 mg/dL (70-99) Physical Exam HEENT: Neck Supple W Full Motion Chest: Symmetric LUNGS: Clear to Auscultation Heart: S1S2, RRR (SR), other Abdomen: Soft N/T Extremities: No Calf Tenderness Neurology: alert, oriented, follow commands Assessment Assessment 1. NSTEMI: initial trop 0.2. EKG SR with LBBB no acute changes by comparison. Type 2, demand mediated in the setting of ESRD and uncontrolled HTN 2. Accelerated HTN: improved. isolated high BP noted this am is taken post GI symptoms. 3. CAD: known PLANT [employer]ER to LAD with collateralization from RCA. 09/2018 PCI/stent to D1 at , clinically stable 4. Chronic systolic CHF: clinically compensated 5. Chronic LBBB 6. S/P TAVR: 06/2018 7. ICM: NYHA 2-3 last known EF at 35% compensated 8. Hyperlipidemia 9. DM2 10. ESRD on HD 11. Iodine allergy 12. Possible hx of PAFIB 13. Postussive vomiting 14. GERD induced cough Recommendations 1. Limited TTE pending 2. Her CP is resolved after her BP has been normalized. Her coreg was discontinued recently likely due to low BP but currently with her regular dosing of coreg, her BP has been controlled and no episodes of hypotension. CP recurrence appears to be related to GERD with intractable coughing which triggered her n/v. 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 3. DC heaprin and continue ASA/plavix. 4. Fluid offloading via HD 5. GI cocktail and PPI 6. AICD has been discussed with pt by cardiology as reported by pt. 7. HBPM and diet compliance AMAN EDWARDS APRN Feb 04, 2019 12:20
[2019-02-04] MEDS ORDERED: DEXAMETHASONE 4 MG TABLET PO ONE (13:00)
--- NOTE | 2019-02-04 13:00 | NUR ---
SS following for discharge planning. SS reviewed pt chart. Pt is from home with family and is currently requiring oxygen. Pt has outpatient dialysis set up at [facility], ; fax [phone], Friday, , and Friday at 0630. SS will continue to follow for discharge planning.
[2019-02-04] MEDS ORDERED: IV NORMAL SALINE 1000ML BAG 1,000 ML IV PRN ×2 (14:06)
[2019-02-04] MEDS ORDERED: diphenhydrAMINE 50 MG/ML VIAL IV PRN ×2 (14:15)
[2019-02-04] MEDS ORDERED: ALBUMIN HUMAN 25% 200 ML IV PRN (14:15)
[2019-02-04] MEDS ORDERED: DIALYSIS PATIENT. MC PRN ×2 (14:15)
[2019-02-04 15:00] VITALS: BP 119/54
[2019-02-04] MEDS: FOLIC/VIT B COMP W-C (RENAL) TABLET. PO SCH (19:01)
[2019-02-04] MEDS: LINAGLIPTIN 5 MG TABLET PO SCH (19:01)
[2019-02-04] MEDS: CINACALCET HCL 30 MG TABLET PO SCH (19:01)
[2019-02-04] MEDS: ASPIRIN CHEWABLE 81 MG TABLET. PO SCH (19:01)
[2019-02-04] MEDS: CLOPIDOGREL BISULFATE 75 MG TABLET PO SCH (19:01)
[2019-02-04] MEDS: LIDOCAINE (700MG/PATCH) PATCH. TD SCH (19:02)
[2019-02-04] MEDS: glipiZIDE 5 MG TABLET PO SCH (19:02)
[2019-02-04] MEDS: LOSARTAN POTASSIUM 50 MG TABLET. PO SCH (19:08)
[2019-02-04 19:23] VITALS: BP 167/104
[2019-02-04] MEDS ORDERED: PATCH REMOVAL. MC SCH (21:00)
[2019-02-04] MEDS: LATANOPROST 0.005% OPHTH SOLUTION 2.5ML BOTTLE. OU SCH (21:24)
--- NOTE | 2019-02-04 21:24 | NUR ---
LIDODERM PATCH APPLIED AT 1900 BY DAY RN, DID NOT REMOVE AT HS PER SCHEDULE, WILL MONITOR PT STATUS AND SAFETY. PMRN
[2019-02-04] MEDS: ATORVASTATIN CALCIUM 40 MG TABLET. PO SCH (21:25)
[2019-02-04 23:17] VITALS: BP 110/40
[2019-02-05 02:44] VITALS: BP 128/59
[2019-02-05] MEDS: ALBUTEROL SULFATE 2.5 MG/3 ML NEBU. NEB SCH (06:59)
[2019-02-05] MEDS: BUDESONIDE 0.5 MG/2 ML NEBU. NEB SCH (06:59)
[2019-02-05 07:00] VITALS: BP 119/45
[2019-02-05 08:41] VITALS: BP 119/45
[2019-02-05] MEDS: SODIUM BICARBONATE 650 MG TABLET. PO SCH (08:41)
[2019-02-05] MEDS: CARVEDILOL 12.5 MG TABLET. PO SCH (08:41)
[2019-02-05] MEDS: CINACALCET HCL 30 MG TABLET PO SCH (08:41)
[2019-02-05] MEDS: LINAGLIPTIN 5 MG TABLET PO SCH (08:41)
[2019-02-05] MEDS: ASPIRIN CHEWABLE 81 MG TABLET. PO SCH (08:41)
[2019-02-05] MEDS: SEVELAMER CARBONATE 800 MG TABLET. PO SCH (08:41)
[2019-02-05] MEDS: LOSARTAN POTASSIUM 50 MG TABLET. PO SCH (08:41)
[2019-02-05] MEDS: FOLIC/VIT B COMP W-C (RENAL) TABLET. PO SCH (08:41)
[2019-02-05] MEDS: LIDOCAINE (700MG/PATCH) PATCH. TD SCH (08:42)
[2019-02-05] MEDS: CLOPIDOGREL BISULFATE 75 MG TABLET PO SCH (08:42)
[2019-02-05] MEDS: glipiZIDE 5 MG TABLET PO SCH (08:42)
[2019-02-05] MEDS: PANTOPRAZOLE 40 MG TABLET.DR. PO SCH (08:42)
[2019-02-05] MEDS ORDERED: METOPROLOL SUCC 24HR ER 50 MG TAB.ER.24H. PO SCH (09:00)
--- NOTE | 2019-02-05 09:13 | PDOC ---
PROGRESS NOTES Chief Complaint Chief Complaint A/P: NSTEMI: initial trop 0.2. EKG SR with LBBB no acute changes by comparison. Type 2, demand mediated in the setting of ESRD and uncontrolled HTN Accelerated HTN: improved. isolated high BP noted this am is taken post GI symptoms. CAD: known STRAP SEWER to LAD with collateralization from RCA. 09/2018 PCI/stent to D1 at , clinically stable Chronic systolic CHF: clinically compensated Chronic LBBB S/P TAVR: 06/2018 ICM: NYHA 2-3 last known EF at 35% compensated Hyperlipidemia DM2 ESRD on HD PAFIB GERD induced cough History of Present Illness History of Present Illness 63 yo female w/ PMHx DM2, ESRD, COPD, AFIB, CAD, CHF, HTN, Hyperlipidemia, Aortic stenosis (s/p TAVR), carotid artery disease, chronic LBBB, ICM, Chronic occlusion of her distal LAD which is collateralized from the RCAadmitted for complains of chest pain. Reports that this is tightness and sharp at the same time across her chest. This has been going on in the last 4 days. It occurred about 4 hours after dialysis yesterday and took 2 NTG. Today this occurred prior to her going to her appointment with pain management and decided to come to ED instead. It was hard for her to breath at that time but no sensation of palpitations and no jaw tightness or arm discomfort. Her pain was resolved after ASA and morphine in ED. No recent falls or injury. She has been complaint with her meds and dialysis but lately her SBP has been running in the 180s. Her medications has been adjusted but it is unclear why she was taken off metoprolol citing possibly from low BP. Upon admission her SBP was in the 250s and has come down normalized at 117. No n/v. No frequent coughing. Denies any heartb urn. She is known to cardiology with last follow up in 11/2018 after stent placement in 09/2018. She had TAVR around 06/2018 and RCEA in 01/2018. She also has cardiomyopathy with recent EF at 35% and potential AICD has been discussed. To add her high started after and admits high salt intake. Feeling much better today. Has [facility] cardiology f/u. No chest pain or SOB. BP tolerating coreg well. She feels the pantoprazole is helping significantly. Vitals Vitals Vital Signs Date Time Temp Pulse Resp B/P (MAP) Pulse Ox O2 Delivery O2 Flow Rate FiO2 02/05/19 08:41 63 119/45 02/05/19 07:00 98 02/05/19 07:00 97.7 18 Room Air 97.7 02/04/19 19:45 2.0 Physical Exam General: Alert, Oriented X3, Cooperative, No acute distress Heart: Regular rate Lungs: Clear, Other Abdomen: Normal bowel sounds, Soft, No tenderness Extremities: No clubbing Skin: No rashes Labs LABS Laboratory Tests Test 02/04/19 12:10 02/04/19 19:03 02/05/19 07:50 Glucose (Fingerstick) 107 mg/dL (70-99) 75 mg/dL (70-99) 156 mg/dL (70-99) Assessment and Plan Assessmemt and Plan Problems Medical Problems: (1) Chest pain Status: Acute (2) End stage renal disease on dialysis Status: Acute Comment Review of Relevant I have reviewed the following items caroline (where applicable) has been applied. Labs Laboratory Tests Test 02/03/19 10:17 02/03/19 14:55 02/03/19 17:29 02/03/19 17:50 White Blood Count 10.0 x10^3/uL (4.0-11.0) Red Blood Count 4.34 x10^6/uL (3.50-5.40) Hemoglobin 12.2 g/dL (12.0-15.5) Hematocrit 37.9 % (36.0-47.0) Mean Corpuscular Volume 87 fL (79-100) Mean Corpuscular Hemoglobin 28 pg (25-35) Mean Corpuscular Hemoglobin Concent 32 g/dL (31-37) Red Cell Distribution Width 18.4 % (11.5-14.5) Platelet Count 206 x10^3/uL (140-400) Neutrophils (%) (Auto) 73 % (31-73) Lymphocytes (%) (Auto) 14 % (24-48) Monocytes (%) (Auto) 10 % (0-9) Eosinophils (%) (Auto) 2 % (0-3) Basophils (%) (Auto) 1 % (0-3) Neutrophils # (Auto) 7.4 x10^3/uL (1.8-7.7) Lymphocytes # (Auto) 1.4 x10^3/uL (1.0-4.8) Monocytes # (Auto) 1.0 x10^3/uL (0.0-1.1) Eosinophils # (Auto) 0.1 x10^3/uL (0.0-0.7) Basophils # (Auto) 0.1 x10^3/uL (0.0-0.2) Prothrombin Time 15.3 SEC (11.7-14.0) Prothromb Time International Ratio 1.2 (0.8-1.1) Sodium Level 142 mmol/L (136-145) Potassium Level 4.4 mmol/L (3.5-5.1) Chloride Level 102 mmol/L (98-107) Carbon Dioxide Level 25 mmol/L (21-32) Anion Gap 15 (6-14) Blood Urea Nitrogen 47 mg/dL (7-20) Creatinine 8.8 mg/dL (0.6-1.0) Estimated GFR (Cockcroft-Gault) 5.5 BUN/Creatinine Ratio 5 (6-20) Glucose Level 102 mg/dL (70-99) Calcium Level 9.3 mg/dL (8.5-10.1) Magnesium Level 1.9 mg/dL (1.8-2.4) Total Bilirubin 0.5 mg/dL (0.2-1.0) Aspartate Amino Transf (AST/SGOT) 19 U/L (15-37) Alanine Aminotransferase (ALT/SGPT) 11 U/L (14-59) Alkaline Phosphatase 130 U/L (46-116) Troponin I Quantitative 0.224 ng/mL (0.000-0.055) 0.246 ng/mL (0.000-0.055) 0.221 ng/mL (0.000-0.055) QX-Hox-X-Type Natriuretic Peptide 39662 pg/mL (0-124) Total Protein 8.0 g/dL (6.4-8.2) Albumin 3.2 g/dL (3.4-5.0) Albumin/Globulin Ratio 0.7 (1.0-1.7) Triglycerides Level 73 mg/dL (0-150) Cholesterol Level 134 mg/dL (0-200) LDL Cholesterol, Calculated 67 mg/dL (0-100) VLDL Cholesterol, Calculated 15 mg/dL (0-40) Non-HDL Cholesterol Calculated 82 mg/dL (0-129) HDL Cholesterol 52 mg/dL (40-60) Cholesterol/HDL Ratio 2.6 Lipase 332 U/L (73-393) Thyroid Stimulating Hormone (TSH) 1.574 uIU/mL (0.358-3.74) Glucose (Fingerstick) 98 mg/dL (70-99) Test 02/03/19 20:30 02/03/19 21:04 02/03/19 23:15 02/04/19 05:00 Urine Collection Type Unknown Urine Color Yellow Urine Clarity Clear Urine pH 6.0 Urine Specific [place] 1.020 Urine Protein >=300 mg/dL (NEG-TRACE) Urine Glucose (UA) Negative mg/dL (NEG) Urine Ketones (Stick) Negative mg/dL (NEG) Urine Blood Trace (NEG) Urine Nitrite Negative (NEG) Urine Bilirubin Small (NEG) Urine Urobilinogen Dipstick 1.0 mg/dL (0.2 mg/dL) Urine Leukocyte Esterase Small (NEG) Urine RBC Occ /HPF (0-2) Urine WBC 20-40 /HPF (0-4) Urine Squamous Epithelial Cells Many /LPF Urine Bacteria Many /HPF (0-FEW) Glucose (Fingerstick) 126 mg/dL (70-99) Heparin Anti-Xa Act, Unfractionated < 0.10 IU/mL (0.30-0.70) 0.27 IU/mL (0.30-0.70) White Blood Count 9.9 x10^3/uL (4.0-11.0) Red Blood Count 4.12 x10^6/uL (3.50-5.40) Hemoglobin 11.5 g/dL (12.0-15.5) Hematocrit 36.5 % (36.0-47.0) Mean Corpuscular Volume 89 fL (79-100) Mean Corpuscular Hemoglobin 28 pg (25-35) Mean Corpuscular Hemoglobin Concent 31 g/dL (31-37) Red Cell Distribution Width 18.2 % (11.5-14.5) Platelet Count 198 x10^3/uL (140-400) Neutrophils (%) (Auto) 73 % (31-73) Lymphocytes (%) (Auto) 15 % (24-48) Monocytes (%) (Auto) 9 % (0-9) Eosinophils (%) (Auto) 2 % (0-3) Basophils (%) (Auto) 1 % (0-3) Neutrophils # (Auto) 7.2 x10^3/uL (1.8-7.7) Lymphocytes # (Auto) 1.5 x10^3/uL (1.0-4.8) Monocytes # (Auto) 0.9 x10^3/uL (0.0-1.1) Eosinophils # (Auto) 0.2 x10^3/uL (0.0-0.7) Basophils # (Auto) 0.1 x10^3/uL (0.0-0.2) Sodium Level 140 mmol/L (136-145) Potassium Level 4.2 mmol/L (3.5-5.1) Chloride Level 101 mmol/L (98-107) Carbon Dioxide Level 24 mmol/L (21-32) Anion Gap 15 (6-14) Blood Urea Nitrogen 57 mg/dL (7-20) Creatinine 10.2 mg/dL (0.6-1.0) Estimated GFR (Cockcroft-Gault) 4.6 Glucose Level 138 mg/dL (70-99) Calcium Level 8.8 mg/dL (8.5-10.1) Test 02/04/19 08:15 02/04/19 12:10 02/04/19 19:03 02/05/19 07:50 Glucose (Fingerstick) 83 mg/dL (70-99) 107 mg/dL (70-99) 75 mg/dL (70-99) 156 mg/dL (70-99) Laboratory Tests Test 02/04/19 12:10 02/04/19 19:03 02/05/19 07:50 Glucose (Fingerstick) 107 mg/dL (70-99) 75 mg/dL (70-99) 156 mg/dL (70-99) Medications Current Medications Aspirin (Children'S Aspirin) 324 mg 1X ONCE PO Last administered on 02/03/19at 10:44; Start 02/03/19 at 10:00; Stop 02/03/19 at 10:04; Status DC Morphine Sulfate (Morphine Sulfate) 4 mg PRN Q15MIN PRN IV/SQ PAIN GREATER THAN 3/10 Last administered on 02/03/19 10:45; Start 02/03/19 at 10:00; Stop 02/04/19 at 09:59; Status DC Sodium Chloride 1,000 ml @ 100 mls/hr Q10H IV Last administered on 02/03/19at 10:45; Start 02/03/19 at 09:56; Stop 02/03/19 at 19:55; Status DC Ondansetron HCl (Zofran) 4 mg PRN Q8HRS PRN IV NAUSEA/VOMITING Last administered on 02/04/19 11:42; Start 02/03/19 at 11:45; Stop 02/04/19 at 11:44; Status DC Morphine Sulfate (Morphine Sulfate) 4 mg PRN Q2HR PRN IV PAIN Last administered on 02/04/19 09:35; Start 02/03/19 at 11:45; Stop 02/04/19 at 11:44; Status DC Aspirin (Children'S Aspirin) 81 mg DAILY PO Last administered on 02/05/19 08:41; Start 02/04/19 at 09:00 Atorvastatin Calcium (Lipitor) 40 mg DAILY PO ; Start 02/04/19 at 09:00; Status UNV Cinacalcet (Sensipar) 30 mg DAILY PO Last administered on 02/05/19 08:41; Start 02/04/19 at 09:00 Vitamin B Complex/ Vitamin C (Jacquie-Debbi) 1 tab DAILY PO Last administered on 02/05/19 08:41; Start 02/04/19 at 09:00 Glipizide (Glucotrol) 2.5 mg DAILYWBKFT PO Last administered on 02/05/19 08:42; Start 02/04/19 at 08:00 Latanoprost (Xalatan) 1 drop QHS OU Last administered on 02/04/19 21:24; Start 02/03/19 at 21:00 Linagliptin (Tradjenta) 5 mg DAILY PO Last administered on 02/05/19 08:41; S tart 02/04/19 at 09:00 Losartan Potassium (Cozaar) 50 mg DAILY PO Last administered on 02/05/19 08:41; Start 02/04/19 at 09:00 Nitroglycerin (Nitrostat) 0.4 mg PRN Q5MIN PRN SL CHEST PAIN; Start 02/03/19 at 15:00 Sodium Bicarbonate (Sodium Bicarbonate) 650 mg BID PO Last administered on 02/05/19at 08:41; Start 02/03/19 at 21:00 Ticagrelor (Brilinta) 90 mg BID PO ; Start 02/04/19 at 09:00; Status Cancel Ketorolac Tromethamine (Acular) 1 drop DAILY OU ; Start 02/04/19 at 09:00; Status UNV Non-Formulary Medication (Budesonide/ Formoterol Fumarate (Symbicort 160-4.5 Mcg Inhaler)) 2 puff BID IH ; Start 02/03/19 at 21:00; Status UNV Carvedilol (Coreg) 25 mg BIDWMEALS PO Last administered on 02/05/19at 08:41; Start 02/03/19 at 17:00 Non-Formulary Medication (Difluprednate (Durezol)) 5 ml TID OP ; Start 02/03/19 at 21:00; Status UNV Pantoprazole Sodium (Protonix) 40 mg DAILYAC PO Last administered on 02/05/19at 08:42; Start 02/04/19 at 07:30 Albuterol Sulfate (Ventolin Neb Soln) 2.5 mg RTQID NEB Last administered on 02/05/19at 06:59; Start 02/03/19 at 20:00 Budesonide (Pulmicort) 0.5 mg RTBID NEB Last administered on 02/05/19at 06:59; Start 02/03/19 at 20:00 Hydralazine HCl (Apresoline Inj) 10 mg PRN Q4HRS PRN IVP ELEVATED BP, SEE COMMENTS; Start 02/03/19 at 15:15 Clopidogrel Bisulfate (Plavix) 75 mg 1X ONCE PO Last administered on 02/03/19at 16:23; Start 02/03/19 at 15:30; Stop 02/03/19 at 16:46; Status DC Atorvastatin Calcium (Lipitor) 40 mg QHS PO Last administered on 02/04/19at 21:25; Start 02/03/19 at 21:00 Heparin Sodium (Porcine) (Heparin Sodium) 4,000 unit 1X ONCE IV Last administered on 02/03/19at 17:13; Start 02/03/19 at 16:45; Stop 02/03/19 at 16:46; Status DC Heparin Sodium/ Dextrose 500 ml @ 20 mls/hr CONT PRN PRN IV SEE PROTOCOL Last administered on 02/03/19at 17:15; Start 02/03/19 at 16:40 Heparin Sodium (Porcine) (Heparin Sodium) 2,900 unit PRN Q6HRS PRN IV FOR UFH LEVEL LESS THAN 0.2 Last administered on 02/04/19at 00:08; Start 02/03/19 at 16:45 Albuterol Sulfate (Ventolin Neb Soln) 2.5 mg STK-MED ONCE .ROUTE ; Start 02/03/19 at 18:25; Stop 02/03/19 at 18:25; Status DC Clopidogrel Bisulfate (Plavix) 75 mg DAILY PO Last administered on 02/05/19 08:42; Start 02/04/19 at 09:00 Sevelamer Carbonate (Renvela) 800 mg TIDWMEALS PO Last administered on 02/05/19at 08:41; Start 02/04/19 at 08:00 Info (Anti-Coagulation Monitoring By Pharmacy) 1 each PRN DAILY PRN MC SEE COMMENTS; Start 02/04/19 at 09:30 Multi-Ingredient Mouthwash/Gargle (Gi Cocktail) 20 ml PRN QID PRN PO CHEST PAIN Last administered on 02/04/19at 11:43; Start 02/04/19 at 10:15 Pantoprazole Sodium (PROTONIX VIAL for IV PUSH) 40 mg 1X ONCE IVP Last administered on 02/04/19at 10:32; Start 02/04/19 at 10:15; Stop 02/04/19 at 10:16; Status DC Lidocaine (Lidoderm) 1 patch DAILY TD Last administered on 02/05/19at 08:42; Start 02/04/19 at 13:00 Miscellaneous (Lidoderm Patch Removal) 1 ea QHS MC ; Start 02/04/19 at 21:00 Dexamethasone (Decadron) 4 mg 1X ONCE PO Last administered on 02/04/19at 19:0 0; Start 02/04/19 at 13:00; Stop 02/04/19 at 13:01; Status DC Sodium Chloride 1,000 ml @ 1,000 mls/hr Q1H PRN IV hypotension; Start 02/04/19 at 14:06; Stop 02/04/19 at 20:05; Status DC Albumin Human 200 ml @ 200 mls/hr 1X PRN PRN IV Hypotension; Start 02/04/19 at 14:15; Stop 02/04/19 at 20:14; Status DC Diphenhydramine HCl (Benadryl) 25 mg 1X PRN PRN IV ITCHING; Start 02/04/19 at 14:15; Stop 02/05/19 at 14:14 Diphenhydramine HCl (Benadryl) 25 mg 1X PRN PRN IV ITCHING; Start 02/04/19 at 14:15; Stop 02/05/19 at 14:14 Sodium Chloride 1,000 ml @ 400 mls/hr Q2H30M PRN IV PATENCY; Start 02/04/19 at 14:06; Stop 02/05/19 at 02:05; Status DC Info (PHARMACY MONITORING -- do not chart) 1 each PRN DAILY PRN MC SEE COMMENTS; Start 02/04/19 at 14:15; Status UNV Info (PHARMACY MONITORING -- do not chart) 1 each PRN DAILY PRN MC SEE COMMENTS; Start 02/04/19 at 14:15 Metoprolol Succinate (Toprol Xl) 50 mg DAILY PO ; Start 02/05/19 at 09:00; Stop 02/04/19 at 15:30; Status DC Active Scripts Active Nitrostat (Nitroglycerin) 0.4 Mg Tab.subl 0.4 Mg SL PRN Q5MIN PRN 20 Days Reported Renvela (Sevelamer Carbonate) 800 Mg Tablet 800 Mg PO TIDWMEALS Clopidogrel (Clopidogrel Bisulfate) 75 Mg Tablet 75 Mg PO DAILY Protonix (Pantoprazole Sodium) 20 Mg Tablet.dr 1 Tab PO DAILY Carvedilol 25 Mg Tablet 25 Mg PO BIDWMEALS Losartan Potassium 50 Mg Tablet 50 Mg PO DAILY Sensipar (Cinacalcet Hcl) 30 Mg Tablet 30 Mg PO DAILY Durezol (Difluprednate) 5 Ml Drops 5 Ml OP TID Bromsite (Bromfenac Sodium) 5 Ml Drops 5 Ml OP DAILY Latanoprost 2.5 Ml Drops 1 Drop EACHEYE QHS Symbicort 160-4.5 Mcg Inhaler (Budesonide/Formoterol Fumarate) 10.2 Gm Hfa.aer.ad 2 Puff IH BID Aspirin 81 Mg Tab.chew 1 Tab PO DAILY Glipizide 5 Mg Tablet 2.5 Mg PO DAILY Tradjenta (Linagliptin) 5 Mg Tablet 1 Tab PO DAILY Jacquie-Debbi Tablet (Folic Acid/Vitamin B Comp W-C) 0.8 Mg Tablet 0.8 Mg PO DAILY Sodium Bicarbonate 650 Mg Tablet 1 Tab PO BID Atorvastatin Calcium 40 Mg Tablet 1 Tab PO DAILY Vitals/I & O Vital Sign - Last 24 Hours 02/04/19 02/04/19 02/04/19 02/04/19 09:35 11:00 11:36 15:00 Temp 97.4 97.6 97.4 97.6 Pulse 105 65 Resp 18 18 B/P (MAP) 175/92 (119) 119/54 (75) Pulse Ox 100 99 100 O2 Delivery Nasal Cannula Room Air Nasal Cannula Nasal Cannula O2 Flow Rate 2.0 2.0 2.0 02/04/19 02/04/19 02/04/19 02/04/19 19:01 19:08 19:23 19:35 Temp 97.9 97.9 Pulse 80 105 84 Resp 18 B/P (MAP) 167/104 167/104 (125) Pulse Ox 99 O2 Delivery Nasal Cannula Room Air O2 Flow Rate 2.0 02/04/19 02/04/19 02/04/19 02/05/19 19:44 19:45 23:17 02:44 Temp 98.0 98.1 98.0 98.1 Pulse 69 77 Resp 16 18 B/P (MAP) 110/40 (63) 128/59 (82) Pulse Ox 99 99 96 93 O2 Delivery Nasal Cannula Nasal Cannula Room Air Room Air O2 Flow Rate 2.0 2.0 02/05/19 02/05/19 02/05/19 02/05/19 07:00 07:00 08:41 08:41 Temp 97.7 97.7 Pulse 63 63 63 Resp 18 B/P (MAP) 119/45 (69) 119/45 119/45 Pulse Ox 92 98 O2 Delivery Room Air Intake and Output 02/04/19 02/04/19 02/05/19 15:00 23:00 07:00 Intake Total 240 ml 125 ml 400 ml Balance 240 ml 125 ml 400 ml ALEA SWIFT MD 13, 2019 09:13
[2019-02-05] MEDS ORDERED: PANT40TA77 PO (09:52)
--- NOTE | 2019-02-05 10:03 | PDOC3 ---
Discharge Summary Visit Information Date of Admission: Feb 03, 2019 Date of Discharge: Feb 05, 2019 Admitting Diagnosis: Chest pain Final Diagnosis Problems Medical Problems: (1) Chest pain Status: Acute (2) End stage renal disease on dialysis Status: Acute Brief Hospital Course Allergies Allergies Coded Allergies Type Severity Reaction Last Updated Verified Iodine and Iodide Containing Produc Allergy Severe swells up & itches 02/13/18 Yes shellfish derived Allergy Intermediate "SEAFOOD" 02/13/18 Yes Vital Signs Vital Signs Date Time Temp Pulse Resp B/P (MAP) Pulse Ox O2 Delivery O2 Flow Rate FiO2 02/05/19 08:41 63 119/45 02/05/19 08:00 Room Air 02/05/19 07:00 98 02/05/19 07:00 97.7 18 97.7 02/04/19 19:45 2.0 Lab Results Laboratory Tests Test 02/03/19 10:17 02/03/19 14:55 02/03/19 17:29 02/03/19 17:50 White Blood Count 10.0 x10^3/uL (4.0-11.0) Red Blood Count 4.34 x10^6/uL (3.50-5.40) Hemoglobin 12.2 g/dL (12.0-15.5) Hematocrit 37.9 % (36.0-47.0) Mean Corpuscular Volume 87 fL (79-100) Mean Corpuscular Hemoglobin 28 pg (25-35) Mean Corpuscular Hemoglobin Concent 32 g/dL (31-37) Red Cell Distribution Width 18.4 % (11.5-14.5) Platelet Count 206 x10^3/uL (140-400) Neutrophils (%) (Auto) 73 % (31-73) Lymphocytes (%) (Auto) 14 % (24-48) Monocytes (%) (Auto) 10 % (0-9) Eosinophils (%) (Auto) 2 % (0-3) Basophils (%) (Auto) 1 % (0-3) Neutrophils # (Auto) 7.4 x10^3/uL (1.8-7.7) Lymphocytes # (Auto) 1.4 x10^3/uL (1.0-4.8) Monocytes # (Auto) 1.0 x10^3/uL (0.0-1.1) Eosinophils # (Auto) 0.1 x10^3/uL (0.0-0.7) Basophils # (Auto) 0.1 x10^3/uL (0.0-0.2) Prothrombin Time 15.3 SEC (11.7-14.0) Prothromb Time International Ratio 1.2 (0.8-1.1) Sodium Level 142 mmol/L (136-145) Potassium Level 4.4 mmol/L (3.5-5.1) Chloride Level 102 mmol/L (98-107) Carbon Dioxide Level 25 mmol/L (21-32) Anion Gap 15 (6-14) Blood Urea Nitrogen 47 mg/dL (7-20) Creatinine 8.8 mg/dL (0.6-1.0) Estimated GFR (Cockcroft-Gault) 5.5 BUN/Creatinine Ratio 5 (6-20) Glucose Level 102 mg/dL (70-99) Calcium Level 9.3 mg/dL (8.5-10.1) Magnesium Level 1.9 mg/dL (1.8-2.4) Total Bilirubin 0.5 mg/dL (0.2-1.0) Aspartate Amino Transf (AST/SGOT) 19 U/L (15-37) Alanine Aminotransferase (ALT/SGPT) 11 U/L (14-59) Alkaline Phosphatase 130 U/L (46-116) Troponin I Quantitative 0.224 ng/mL (0.000-0.055) 0.246 ng/mL (0.000-0.055) 0.221 ng/mL (0.000-0.055) CO-Jdp-Y-Type Natriuretic Peptide 39495 pg/mL (0-124) Total Protein 8.0 g/dL (6.4-8.2) Albumin 3.2 g/dL (3.4-5.0) Albumin/Globulin Ratio 0.7 (1.0-1.7) Triglycerides Level 73 mg/dL (0-150) Cholesterol Level 134 mg/dL (0-200) LDL Cholesterol, Calculated 67 mg/dL (0-100) VLDL Cholesterol, Calculated 15 mg/dL (0-40) Non-HDL Cholesterol Calculated 82 mg/dL (0-129) HDL Cholesterol 52 mg/dL (40-60) Cholesterol/HDL Ratio 2.6 Lipase 332 U/L (73-393) Thyroid Stimulating Hormone (TSH) 1.574 uIU/mL (0.358-3.74) Glucose (Fingerstick) 98 mg/dL (70-99) Test 02/03/19 20:30 02/03/19 21:04 02/03/19 23:15 02/04/19 05:00 Urine Collection Type Unknown Urine Color Yellow Urine Clarity Clear Urine pH 6.0 Urine Specific [place] 1.020 Urine Protein >=300 mg/dL (NEG-TRACE) Urine Glucose (UA) Negative mg/dL (NEG) Urine Ketones (Stick) Negative mg/dL (NEG) Urine Blood Trace (NEG) Urine Nitrite Negative (NEG) Urine Bilirubin Small (NEG) Urine Urobilinogen Dipstick 1.0 mg/dL (0.2 mg/dL) Urine Leukocyte Esterase Small (NEG) Urine RBC Occ /HPF (0-2) Urine WBC 20-40 /HPF (0-4) Urine Squamous Epithelial Cells Many /LPF Urine Bacteria Many /HPF (0-FEW) Glucose (Fingerstick) 126 mg/dL (70-99) Heparin Anti-Xa Act, Unfractionated < 0.10 IU/mL (0.30-0.70) 0.27 IU/mL (0.30-0.70) White Blood Count 9.9 x10^3/uL (4.0-11.0) Red Blood Count 4.12 x10^6/uL (3.50-5.40) Hemoglobin 11.5 g/dL (12.0-15.5) Hematocrit 36.5 % (36.0-47.0) Mean Corpuscular Volume 89 fL (79-100) Mean Corpuscular Hemoglobin 28 pg (25-35) Mean Corpuscular Hemoglobin Concent 31 g/dL (31-37) Red Cell Distribution Width 18.2 % (11.5-14.5) Platelet Count 198 x10^3/uL (140-400) Neutrophils (%) (Auto) 73 % (31-73) Lymphocytes (%) (Auto) 15 % (24-48) Monocytes (%) (Auto) 9 % (0-9) Eosinophils (%) (Auto) 2 % (0-3) Basophils (%) (Auto) 1 % (0-3) Neutrophils # (Auto) 7.2 x10^3/uL (1.8-7.7) Lymphocytes # (Auto) 1.5 x10^3/uL (1.0-4.8) Monocytes # (Auto) 0.9 x10^3/uL (0.0-1.1) Eosinophils # (Auto) 0.2 x10^3/uL (0.0-0.7) Basophils # (Auto) 0.1 x10^3/uL (0.0-0.2) Sodium Level 140 mmol/L (136-145) Potassium Level 4.2 mmol/L (3.5-5.1) Chloride Level 101 mmol/L (98-107) Carbon Dioxide Level 24 mmol/L (21-32) Anion Gap 15 (6-14) Blood Urea Nitrogen 57 mg/dL (7-20) Creatinine 10.2 mg/dL (0.6-1.0) Estimated GFR (Cockcroft-Gault) 4.6 Glucose Level 138 mg/dL (70-99) Calcium Level 8.8 mg/dL (8.5-10.1) Test 02/04/19 08:15 02/04/19 12:10 02/04/19 19:03 02/05/19 07:50 Glucose (Fingerstick) 83 mg/dL (70-99) 107 mg/dL (70-99) 75 mg/dL (70-99) 156 mg/dL (70-99) Laboratory Tests Test 02/04/19 12:10 02/04/19 19:03 02/05/19 07:50 Glucose (Fingerstick) 107 mg/dL (70-99) 75 mg/dL (70-99) 156 mg/dL (70-99) Brief Hospital Course Ms Lara is a 63 yo female w/ PMHx DM2, ESRD, COPD, AFIB, CAD, CHF, HTN, Hyperlipidemia, Aortic stenosis (s/p TAVR), carotid artery disease, chronic LBBB, ICM, Chronic occlusion of her distal LAD which is collateralized from the RCAadmitted for complains of chest pain. Reports that this is tightness and sharp at the same time across her chest. This has been going on in the last 4 days. It occurred about 4 hours after dialysis yesterday and took 2 NTG. Today this occurred prior to her going to her appointment with pain management and decided to come to ED instead. It was hard for her to breath at that time but no sensation of palpitations and no jaw tightness or arm discomfort. Her pain was resolved after ASA and morphine in ED. No recent falls or injury. She has been complaint with her meds and dialysis but lately her SBP has been running in the 180s. Her medications has been adjusted but it is unclear why she was taken off metoprolol citing possibly from low BP. Upon admission her SBP was in the 250s and has come down normalized at 117. No n/v. No frequent coughing. Denies any heartburn. She is known to cardiology with last follow up in 11/2018 after stent placement in 09/2018. She had TAVR around 06/2018 and RCEA in 01/2018. She also has cardiomyopathy with recent EF at 35% and potential AICD has been discussed. To add her high started after holiday and admits high salt intake. Feeling much better today. Has [facility] cardiology f/u. No chest pain or SOB. BP tolerating coreg well. She feels the pantoprazole is helping significantly. Seen by cardiology and nephrology A/P: NSTEMI: initial trop 0.2. EKG SR with LBBB no acute changes by comparison. Type 2, demand mediated in the setting of ESRD and uncontrolled HTN Accelerated HTN: improved. isolated high BP noted this am is taken post GI symptoms. CAD: known [employer] to LAD with collateralization from RCA. 09/2018 PCI/stent to D1 at , clinically stable Chronic systolic CHF: clinically compensated Chronic LBBB S/P TAVR: 06/2018 ICM: NYHA 2-3 last known EF at 35% compensated Hyperlipidemia DM2 ESRD on HD PAFIB GERD induced cough Greater than 30 minutes spent on d/c Discharge Information Condition at Discharge: Improved Follow Up: Weeks Disposition/Orders: D/C to Home Scheduled Aspirin (Aspirin) 81 Mg Tab.chew, 1 TAB PO DAILY for UNKOWN, #30 Ref 3 (Reported) Entered as Reported by: ALMA RODRIGUEZ on 01/29/18 1004 Last Action: Continued on 02/03/19 1456 by TIKA PUCKETT Atorvastatin Calcium (Atorvastatin Calcium) 40 Mg Tablet, 1 TAB PO DAILY, #30 Ref 5 (Reported) Entered as Reported by: PRICILLA MUHAMMAD on 07/29/14 1127 Last Action: Continued on 02/03/191455 by TIKA PUCKETT Bromfenac Sodium (Bromsite) 5 Ml Drops, 5 ML OP DAILY for cataracts, (Reported) Entered as Reported by: NAZANIN PACHECO on 10/13/181522 Last Action: Converted on 02/03/191455 by TIKA PUCKETT Budesonide/Formoterol Fumarate (Symbicort 160-4.5 Mcg Inhaler) 10.2 Gm Hfa.aer.ad, 2 PUFF IH BID for breathing, #10.6 Ref 3 (Reported) Entered as Reported by: NAZANIN PACHECO on 10/13/181522 Last Action: Converted on 02/03/191455 by TIKA PUCKETT Carvedilol (Carvedilol) 25 Mg Tablet, 25 MG PO BIDWMEALS for CARDIAC, (Reported) Entered as Reported by: LYNNETTE REDD on 10/30/18 1218 Last Action: Converted on 02/03/191455 by TIKA PUCKETT Cinacalcet Hcl (Sensipar) 30 Mg Tablet, 30 MG PO DAILY for dialysis, (Reported) Entered as Reported by: NAZANIN PACHECO on 10/13/181522 Last Action: Continued on 02/03/191455 by TIKA PUCKETT Clopidogrel Bisulfate (Clopidogrel) 75 Mg Tablet, 75 MG PO DAILY for TO PREVENT BLOOD CLOTS, #30 Ref 0 (Reported) Entered as Reported by: Jackie Villalpando on 02/03/191803 Last Taken: 75 on Unknown Date & Time Last Action: Continued on 02/03/191921 by Jackie Villalpando Difluprednate (Durezol) 5 Ml Drops, 5 ML OP TID for cataracts, (Reported) Entered as Reported by: NAZANIN PACHECO on 10/13/181522 Last Action: Converted on 02/03/191455 by TIKA PUCKETT Folic Acid/Vitamin B Comp W-C (Jacquie-Debbi Tablet) 0.8 Mg Tablet, 0.8 MG PO DAILY, (Reported) Entered as Reported by: DIANELYS PUENTES on 05/26/15 1318 Last Action: Continued on 02/03/191455 by TIKA PUCKETT Glipizide (Glipizide) 5 Mg Tablet, 2.5 MG PO DAILY for DIABETES, (Reported) Entered as Reported by: DIANELYS PUENTES on 01/14/18 1558 Last Action: Continued on 02/03/19 145 by TIKA PUCKETT Latanoprost (Latanoprost) 2.5 Ml Drops, 1 DROP EACHEYE QHS for eyes, #7.5 Ref 3 (Reported) Entered as Reported by: NAZANIN PACHECO on 10/13/18 1523 Last Action: Continued on 02/03/19 145 by TIKA PUCKETT Linagliptin (Tradjenta) 5 Mg Tablet, 1 TAB PO DAILY, #90 Ref 1 (Reported) Entered as Reported by: ISELA MCNEIL on 05/02/17 1046 Last Action: Continued on 02/03/191455 by TIKA PUCKETT Losartan Potassium (Losartan Potassium) 50 Mg Tablet, 50 MG PO DAILY for HYPERTENSION, (Reported) Entered as Reported by: LYNNETTE REDD on 10/30/18 1218 Last Action: Continued on 02/03/191455 by TIKA PUCKETT Pantoprazole Sodium (Pantoprazole Sodium ) 40 Mg Tablet.dr, 40 MG PO DAILYAC for GERD for 30 Days, #30 Prescribed by: ALEA SWIFT MD on 02/05/19 0952 Sevelamer Carbonate (Renvela) 800 Mg Tablet, 800 MG PO TIDWMEALS for , (Reported) Entered as Reported by: Jackie Villalpando on 02/03/19 1804 Last Taken: 800 on Unknown Date & Time Last Action: Continued on 02/03/19 192 by Jackie Villalpando Sodium Bicarbonate (Sodium Bicarbonate) 650 Mg Tablet, 1 TAB PO BID, #60 Ref 5 (Reported) Entered as Reported by: PRICILLA MUHAMMAD on 07/29/14 1131 Last Action: Continued on 02/03/19 145 by TIKA PUCKETT Scheduled PRN Nitroglycerin (Nitrostat) 0.4 Mg Tab.subl, 0.4 MG SL PRN Q5MIN PRN for CHEST PAIN for 20 Days, #9 Prescribed by: ALEA SWIFT MD on 10/14/18 1040 Last Action: Continued on 02/03/19 145 by TIKA PUCKETT Discontinued Medications Pantoprazole Sodium (Protonix) 20 Mg Tablet.dr, 1 TAB PO DAILY for gerd, #30 (Reported) Entered as Reported by: LYNNETTE REDD on 10/30/188 Last Action: Converted on 02/03/19 1456 by TIKA PUCKETT Ticagrelor (Brilinta) 90 Mg Tablet, 90 MG PO BID for cad, (Reported) Entered as Reported by: LYNNETTE REDD on 10/30/188 Last Action: Discontinued on 02/03/191803 by ALEA Holland MD Feb 05, 2019 10:03
[2019-02-05] MEDS ORDERED: DOXY100C2 PO (10:27)
[2019-02-05] MEDS ORDERED: METH4TAB2 PO (10:27)
--- NOTE | 2019-02-05 10:50 | NUR ---
Discharge Note: ACE GUPTA [address] [place] [address] Discharge instructions and discharge home medications reviewed with Patient and a copy given. All questions have been answered and understanding verbalized. The following instructions and handouts were given: CP Discontinued IV line Patient discharged to home with self care via wheelchair
== END 2019-02-05 10:20 | disposition home or self-care (01) | DRG 280 ==
LOC: ER 09:49 → ED HOLD 11:28 → 2 SOUTH 17:34
PROVIDERS: ADMIT Internal Medicine; ATTEND Internal Medicine
PROC: 5A1D70Z Performance of Urinary Filtration, Intermittent, Less than 6 Hours Per Day (ICD-10-PCS; principal; 2019-02-03)
DX: I13.2 Hypertensive heart and chronic kidney disease with heart failure and with stage 5 chronic kidney disease, or end stage renal disease (principal); I21.A1 Myocardial infarction type 2; I50.23 Acute on chronic systolic (congestive) heart failure; N18.6 End stage renal disease; Z68.41 Body mass index [BMI] 40.0-44.9, adult; I42.9 Cardiomyopathy, unspecified; D63.1 Anemia in chronic kidney disease; I25.110 Atherosclerotic heart disease of native coronary artery with unstable angina pectoris; E11.22 Type 2 diabetes mellitus with diabetic chronic kidney disease; E66.9 Obesity, unspecified; E78.00 Pure hypercholesterolemia, unspecified; E78.5 Hyperlipidemia, unspecified; J44.9 Chronic obstructive pulmonary disease, unspecified; K21.9 Gastro-esophageal reflux disease without esophagitis; Z91.041 Radiographic dye allergy status; Z95.1 Presence of aortocoronary bypass graft; Z95.2 Presence of prosthetic heart valve; Z95.5 Presence of coronary angioplasty implant and graft; Z99.2 Dependence on renal dialysis; G89.29 Other chronic pain; M19.90 Unspecified osteoarthritis, unspecified site; I48.0 Paroxysmal atrial fibrillation; Z79.01 Long term (current) use of anticoagulants; Z88.8 Allergy status to other drugs, medicaments and biological substances; Z91.013 Allergy to seafood
CPT/HCPCS: 36415; 71045; 80048; 80053; 80061; 81001; 82962; 83690; 83735; 83880; 84443; 84484; 85025; 85520; 85610; 87086; 93005; 94640; 94760; 96365; 96376; C9113; J1644; J2270; J2405; J7030; J7613; J7626; J8540; 99285-25; G0378

== ENCOUNTER 2019-09-03 16:04 | Inpatient (IN) | payer MEDICARE, BC ==
[~2019-09-03] VITALS: Ht 162.6 cm; Wt 97.0 kg
[~2019-09-03 16:04] MED LIST changes: +CLOP75TA PO; +DOXY100C2 PO; +METH4TAB2 PO; +PANT40TA77 PO
[2019-09-03] MEDS ORDERED: IV NORMAL SALINE 500ML BAG 500 ML IV ONE ×2 (16:15→18:30)
--- NOTE | 2019-09-03 16:47 | RAD ---
CHEST AP ONLY History: Reason: low bp / Spl. Instructions: / History: Comparison: February 03, 2019 Findings: Loculated small to moderate right pleural effusion. Right mid and basilar consolidations. Massively enlarged cardiac size, unchanged. TAVR noted. No pneumothorax. Impression: 1. Loculated small to moderate right pleural effusion. 2. Right mid and basilar consolidations, may represent atelectasis or pneumonia. 3. Cardiomegaly, unchanged. Electronically signed by: Farshad Murguia DO (09/03/2019 4:44 PM) [id number]
[2019-09-03 16:54] LABS: BASO # 0.1 x10^3/uL (0.0-0.2); BASO % 1 % (0-3); EOS # 0.1 x10^3/uL (0.0-0.7); EOS % 1 % (0-3); HEMATOCRIT 32.1 % (36.0-47.0); HEMOGLOBIN 10.5 g/dL (12.0-15.5); LYMPH # 0.9 x10^3/uL (1.0-4.8); LYMPH % 7 % (24-48); MEAN CORPUSCULAR HEMOGLOBIN 30 pg (25-35); MEAN CORPUSCULAR HGB CONC 33 g/dL (31-37); MEAN CORPUSCULAR VOLUME 93 fL (79-100); MONO # 0.9 x10^3/uL (0.0-1.1); MONO % 7 % (0-9); NEUT # 10.3 x10^3/uL (1.8-7.7); NEUT % 84 % (31-73); PLATELET COUNT 217 x10^3/uL (140-400); RED BLOOD COUNT 3.46 x10^6/uL (3.50-5.40); RED CELL DISTRIBUTION WIDTH 23.9 % (11.5-14.5); WHITE BLOOD COUNT 12.2 x10^3/uL (4.0-11.0)
[2019-09-03] MEDS ORDERED: PIP/TAZO PER PHARMACY MC PRN (17:00)
[2019-09-03] MEDS ORDERED: PIPERACILLIN/TAZOBACTAM 2.25 GM in IV NORMAL SALINE 50ML 50 ML IV ONE (17:00)
--- NOTE | 2019-09-03 17:19 | PHYS DOC ---
Past Medical History Past Medical History: CAD, CHF, COPD, Diabetes-Type II, High Cholesterol, Hypertension, NM, Renal Disease, Renal Failure, Other Additional Past Medical Histor: HYPOGLYCEMIA,OBESITY, PERITONEAL DIALYSIS Past Surgical History: Other Additional Past Surgical Histo: hemodialysis in left upper arm (NOT IN USE),R CAROTID, R, L ARM GRAFT DIALY Smoking Status: Never Smoker Alcohol Use: None Drug Use: None General Adult EDM: Chief Complaint: WEAKNESS/GENERALIZED HPI: HPI: 64-year-old female presenting to the emergency department today with generalized weakness and a cough. She was going to the dialysis clinic today when they noted her blood pressure was low. They sent her here prior to doing dialysis. She is also been having some uncontrolled blood sugars including yesterday when she had a blood sugar below 50 which was alleviated by p.o. glucose. She denies having any symptoms at this time other than a chronic cough for the past month or so. She denies any pain at this time and is occasionally feeling lightheaded when she stands up but denies lightheadedness at rest here in the emergency room. Review of systems negative for chest pain abdominal pain shortness of breath nausea vomiting fevers chills. All other review of systems negative. ED course: 64-year-old female with end-stage renal disease presented emergency department today with generalized weakness and cough. On arrival she is afebrile with a normal pulse rate. On examination her lungs are clear without wheezing. Her initial blood pressure was 83/53. IV was established. She was given 500 cc of IV fluids which brought her blood pressure of 110 systolic. Chest x-ray shows right mid and basilar consolidations which may reflect atelectasis or pneumonia with a small to moderate right pleural effusion. IV antibiotics were initiated for pneumonia. Pending chemistry panel at signout. Patient will be signed out to oncoming team. We will admit the patient likely for treatment for pneumonia. Heart Score: Risk Factors: Risk Factors: DM, Current or recent (<one month) smoker, HTN, HLP, family history of CAD, obesity. Risk Scores: Score 0 - 3: 2.5% MACE over next 6 weeks - Discharge Home Score 4 - 6: 20.3% MACE over next 6 weeks - Admit for Clinical Observation Score 7 - 10: 72.7% MACE over next 6 weeks - Early Invasive Strategies Current Medications: Current Medications Medications (Trade) Dose Ordered Sig/Chinmay Start Time Stop Time Status Last Admin Dose Admin Piperacillin Sod/ Tazobactam Sod (Zosyn Per Pharmacy) 1 each PRN DAILY PRN 09/03/19 17:00 UNV Piperacillin Sod/ Tazobactam Sod 2.25 gm/Sodium Chloride 50 ml @ 100 mls/hr ONCE ONCE 09/03/19 17:00 09/03/19 17:29 Sodium Chloride 500 ml @ 500 mls/hr 1X ONCE 09/03/19 16:15 09/03/19 17:14 09/03/19 16:48 500 MLS/HR Vancomycin HCl (Vanco Per Pharmacy) 1 each PRN DAILY PRN 09/03/19 17:00 UNV Vancomycin HCl 2 gm/Sodium Chloride 500 ml @ 250 mls/hr ONCE ONCE 09/03/19 17:30 09/03/19 19:29 Allergies: Allergies: Allergies Coded Allergies Type Severity Reaction Last Updated Verified Iodine and Iodide Containing Produc Allergy Severe swells up & itches 02/13/18 Yes shellfish derived Allergy Intermediate "SEAFOOD" 02/13/18 Yes Physical Exam: PE: Constitutional: Well developed, well nourished, no acute distress, non-toxic appearance. [] HENT: Normocephalic, atraumatic, bilateral external ears normal, oropharynx moist, no oral exudates, nose normal. [] Eyes: PERRLA, EOMI, conjunctiva normal, no discharge. [] Neck: Normal range of motion, no tenderness, supple, no stridor. [] Cardiovascular:Heart rate regular rhythm, no murmur [] Lungs & Thorax: Bilateral breath sounds clear to auscultation [] Abdomen: Bowel sounds normal, soft, no tenderness, no masses, no pulsatile masses. [] Skin: Warm, dry, no erythema, no rash. [] Back: No tenderness, no CVA tenderness. [] Extremities: No tenderness, no cyanosis, no clubbing, ROM intact, no edema. [] Neurologic: Alert and oriented X 3, normal motor function, normal sensory function, no focal deficits noted. [] Psychologic: Affect normal, judgement normal, mood normal. [] Current Patient Data: Labs: Laboratory Tests Test 09/03/19 16:38 White Blood Count 12.2 x10^3/uL (4.0-11.0) H Red Blood Count 3.46 x10^6/uL (3.50-5.40) L Hemoglobin 10.5 g/dL (12.0-15.5) L Hematocrit 32.1 % (36.0-47.0) L Mean Corpuscular Volume 93 fL (79-100) Mean Corpuscular Hemoglobin 30 pg (25-35) Mean Corpuscular Hemoglobin Concent 33 g/dL (31-37) Red Cell Distribution Width 23.9 % (11.5-14.5) H Platelet Count 217 x10^3/uL (140-400) Neutrophils (%) (Auto) 84 % (31-73) H Lymphocytes (%) (Auto) 7 % (24-48) L Monocytes (%) (Auto) 7 % (0-9) Eosinophils (%) (Auto) 1 % (0-3) Basophils (%) (Auto) 1 % (0-3) Neutrophils # (Auto) 10.3 x10^3/uL (1.8-7.7) H Lymphocytes # (Auto) 0.9 x10^3/uL (1.0-4.8) L Monocytes # (Auto) 0.9 x10^3/uL (0.0-1.1) Eosinophils # (Auto) 0.1 x10^3/uL (0.0-0.7) Basophils # (Auto) 0.1 x10^3/uL (0.0-0.2) Platelet Estimate Pending Laboratory Tests 09/03/19 16:38 Vital Signs: Vital Signs Date Time Temp Pulse Resp B/P (MAP) Pulse Ox O2 Delivery O2 Flow Rate FiO2 09/03/19 16:12 98.7 73 18 83/53 (63) 100 Nasal Cannula 2.0 98.7 EKG: EKG: [] Radiology/Procedures: Radiology/Procedures: [] Course & Med Decision Making: Course & Med Decision Making Pertinent Labs and Imaging studies reviewed. (See chart for details) [] Dragon Disclaimer: Dragon Disclaimer: This electronic medical record was generated, in whole or in part, using a voice recognition dictation system. Departure Departure Impression: Primary Impression: ESRD (end stage renal disease) Referrals: DARIEL FLYNN APRN (PCP) Justicifation of Admission Dx: Justifications for Admission: Justification of Admission Dx: No MAYE DANIELS MD Sep 03, 2019 17:19
[2019-09-03 17:28] LABS: PLT ESTIMATE ADEQUATE (ADEQUATE)
[2019-09-03] MEDS ORDERED: VANCOMYCIN 2 GM in IV NORMAL SALINE 500ML BAG 500 ML IV ONE (17:30)
[2019-09-03 17:32] LABS: ANISOCYTOSIS MOD; HYPOCHROMIA SLIGHT; POIKILOCYTOSIS SLIGHT; POLYCHROMASIA SLIGHT; TARGET CELLS FEW
[2019-09-03 17:33] LABS: SPHEROCYTES OCC; TEAR DROP CELLS OCC
[2019-09-03 17:34] LABS: OVALOCYTES MOD
[2019-09-03 17:41] LABS: BURR CELLS PRESENT; HELMET CELLS OCC; SCHISTOCYTES OCC
[2019-09-03 17:49] LABS: CALCIUM 8.4 mg/dL (8.5-10.1); CREATININE 9.5 mg/dL (0.6-1.0)
[2019-09-03 17:55] LABS: ALBUMIN 2.2 g/dL (3.4-5.0); DIRECT BILIRUBIN 1.4 mg/dL (0.0-0.2); TOTAL BILIRUBIN 1.7 mg/dL (0.2-1.0); TOTAL PROTEIN 5.9 g/dL (6.4-8.2)
[2019-09-03] MEDS ORDERED: ONDANSETRON PF 4 MG/2 ML VIAL. IV PRN (18:30)
[2019-09-03] MEDS: VANCOMYCIN PER PHARMACY MC PRN (19:09)
--- NOTE | 2019-09-03 19:12 | NUR ---
Pharmacy Vancomycin Dosing Note S:Consulted to monitor and dose vancomycin started 09/03/19. O:ACE GUPTA is a 64 year old F with Pneumonia Height: 5 feet, 4 inches Weight: 103.0 kg [place] Body Weight: 54.70 Adjusted Body Weight: 74.02 Dosing Weight: Actual Other Antibiotics: ZOSYN LABS: Last BUN: 42 Last Creatinine: 9.5 Creatinine Clearance: DIALYSIS Last WBC: 12.2 Last Procalcitonin: Tmax (past 24 hours): 98.7 Microbiology: - Last dose given 09/03/19 at 1804 Vancomycin Dosing: Loading Dose: 2000 mg x1 Dosing Weight: Actual Target Trough: 15-20 A: Based on: weight and renal function P: 1. Dose Vancomycin 2000 mg IV One Time 2. Follow up Random level on 09/05/19 at 0600 3. Pharmacy will continue to monitor, follow and adjust therapy as needed. Alicia Adler RPH, 09/03/19 7214
--- NOTE | 2019-09-03 20:15 | PDOC1 ---
History and Physical Date of Admission: Date of Admission DATE: 09/03/19 TIME: 20:10 Chief Complaint: Problems: (1) Foot pain, right (2) Pulmonary embolism (3) Obesity (4) Intractable abdominal pain (5) Diabetes (6) Obesity (BMI 30.0-34.9) (7) Torticollis, acute (8) Carotid stenosis (9) ESRD (end stage renal disease) (10) Acute on chronic systolic (congestive) heart failure (11) Accelerated hypertension (12) DM2 (diabetes mellitus, type 2) (13) End stage renal disease on dialysis (14) LBBB (left bundle branch block) (15) HLD (hyperlipidemia) Chief Complain: Weakness cough low blood pressure hypoglycemia History of Present Illness: HPI: This is a middle-aged -[place] female who developed severe weakness today. She is a end-stage renal disease patient on dialysis (she has done both HD and PD) patient and was told to go to the ER because her pressures were low and she had a cough and was very weak Yesterday she had a glucose that was low at 50 We did a chest x-ray in the ER she does have a right sided possible pneumonia She was also hypotensive in the ER at 83/53 She rates her symptoms at 7 out of 10 She has associated anxiety Moving makes it worse I discussed the case with ER physician recommend the patient with consultation to pulmonary medicine and nephrology and infectious disease Past Medical/Surgical History: PMH/PSH: Past Medical History: CAD, CHF, COPD, Diabetes-Type II, High Cholesterol, Hypertension, VT, Renal Disease, Renal Failure, Other Additional Past Medical Histor: HYPOGLYCEMIA,OBESITY, PERITONEAL DIALYSIS Past Surgical History: Other Additional Past Surgical Histo: hemodialysis in left upper arm (NOT IN USE),R CAROTID, R, L ARM GRAFT DIALY Smoking Status: Never Smoker Alcohol Use: None Allergies: Allergies: Coded Allergies: Iodine and Iodide Containing Produc (Verified Allergy, Severe, swells up & itches, 02/13/18) shellfish derived (Verified Allergy, Intermediate, "SEAFOOD", 02/13/18) Family History: Family History: ESRD and diabetes Social History: Social History: She does not drink smoke or take drugs Current Medications: Current Medications Current Medications Sodium Chloride 500 ml @ 500 mls/hr 1X ONCE IV Last administered on 09/03/19at 16:48; Start 09/03/19 at 16:15; Stop 09/03/19 at 17:14; Status DC Vancomycin HCl (Vanco Per Pharmacy) 1 each PRN DAILY PRN MC SEE COMMENTS Last administered on 09/03/19at 19:09; Start 09/03/19 at 17:00 Piperacillin Sod/ Tazobactam Sod (Zosyn Per Pharmacy) 1 each PRN DAILY PRN MC SEE COMMENTS; Start 09/03/19 at 17:00 Piperacillin Sod/ Tazobactam Sod 2.25 gm/Sodium Chloride 50 ml @ 100 mls/hr ONCE ONCE IV Last administered on 09/03/19at 17:29; Start 09/03/19 at 17:00; Stop 09/03/19 at 17:29; Status DC Vancomycin HCl 2 gm/Sodium Chloride 500 ml @ 250 mls/hr ONCE ONCE IV Last administered on 09/03/19at 18:04; Start 09/03/19 at 17:30; Stop 09/03/19 at 19:29; Status DC Ondansetron HCl (Zofran) 4 mg PRN Q8HRS PRN IV NAUSEA/VOMITING; Start 09/03/19 at 18:30; Stop 09/04/19 at 18:29 Sodium Chloride 500 ml @ 500 mls/hr 1X ONCE IV Last administered on 09/03/19at 18:44; Start 09/03/19 at 18:30; Stop 09/03/19 at 19:29; Status DC Piperacillin Sod/ Tazobactam Sod 2.25 gm/Sodium Chloride 50 ml @ 100 mls/hr Q8HRS IV ; Start 09/04/19 at 06:00 Vancomycin HCl (Vancomycin Random Level) 1 each 1X ONCE MC ; Start 09/05/19 at 06:00; Stop 09/05/19 at 06:01 Active Scripts Active Medrol (Methylprednisolone) 4 Mg Tab.ds.pk 4 Mg PO DAILY 6 Days Doxycycline Hyclate 100 Mg Capsule 1 Cap PO BID 5 Days Pantoprazole Sodium (Pantoprazole Sodium) 40 Mg Tablet.dr 40 Mg PO DAILYAC 30 Days Nitrostat (Nitroglycerin) 0.4 Mg Tab.subl 0.4 Mg SL PRN Q5MIN PRN 20 Days Reported Renvela (Sevelamer Carbonate) 800 Mg Tablet 800 Mg PO TIDWMEALS Clopidogrel (Clopidogrel Bisulfate) 75 Mg Tablet 75 Mg PO DAILY Carvedilol 25 Mg Tablet 25 Mg PO BIDWMEALS Losartan Potassium 50 Mg Tablet 50 Mg PO DAILY Sensipar (Cinacalcet Hcl) 30 Mg Tablet 30 Mg PO DAILY Durezol (Difluprednate) 5 Ml Drops 5 Ml OP TID Bromsite (Bromfenac Sodium) 5 Ml Drops 5 Ml OP DAILY Latanoprost 2.5 Ml Drops 1 Drop EACHEYE QHS Symbicort 160-4.5 Mcg Inhaler (Budesonide/Formoterol Fumarate) 10.2 Gm Hfa.aer.ad 2 Puff IH BID Aspirin 81 Mg Tab.chew 1 Tab PO DAILY Glipizide 5 Mg Tablet 2.5 Mg PO DAILY Tradjenta (Linagliptin) 5 Mg Tablet 1 Tab PO DAILY Jacquie-Debbi Tablet (Folic Acid/Vitamin B Comp W-C) 0.8 Mg Tablet 0.8 Mg PO DAILY Sodium Bicarbonate 650 Mg Tablet 1 Tab PO BID Atorvastatin Calcium 40 Mg Tablet 1 Tab PO DAILY ROS: Review of Systems Review of System REVIEW OF SYSTEMS: GENERAL: SKIN: No bruising, hair changes or rashes. EYES: No blurred, double or loss of vision. NOSE AND THROAT: No history of nosebleeds, hoarseness or sore throat. HEART: No history of palpitations, chest pain or shortness of breath on exertion. LUNGS: Complains of a cough GASTROINTESTINAL: Denies changes in appetite, nausea, vomiting, diarrhea or constipation. GENITOURINARY: No history of frequency, urgency, hesitancy or nocturia. NEUROLOGIC: Denies history of numbness, tingling, or tremor. PSYCHIATRIC: No history of panic, anxiety or depression. ENDOCRINE: Complains of fluctuating sugars EXTREMITIES: Denies joint pain, pain on walking or stiffness. Physical Exam: Vital Signs: Vital Signs Date Time Temp Pulse Resp B/P (MAP) Pulse Ox O2 Delivery O2 Flow Rate FiO2 09/03/19 19:21 68 18 100 09/03/19 16:12 98.7 83/53 (63) Nasal Cannula 2.0 98.7 Physcial Exam: GEN: Seen in the ER once she seems a little weak HEENT: Normal cephalic, atraumatic, external auditory canals are patent EYES: Extraocular muscles are intact, pupil are equally round and reactive to light and accommodation MUSCULOSKELETAL: Well developed , well nourished, good range of motion a little overweight ENDOCRINE: No thyromegaly was palpated LYMPHATICS: No cervical chain or axillary nodes were noted HEMATOPOIETIC: No bruising NECK: Supple, no JVD, no thyromegaly was noted LUNGS: Right basilar crackles HEART: Distant S1-S2 ABDOMEN: Positive bowel sounds nontender a little distended PD catheter EXTREMITIES: Without clubbing, cyanosis, or edema. Pedal pulses intact. Negative Homans sign NEUROLOGIC: Very weak a little anxious PSYCHIATRIC: Little anxious SKIN: No ulcerations or rashes, good skin turgor, no jaundice VASCULAR: Good capillary refill, neurovascular bundle appears to be intact Labs: Labs: Laboratory Tests Test 09/03/19 16:38 09/03/19 17:20 White Blood Count 12.2 x10^3/uL (4.0-11.0) Red Blood Count 3.46 x10^6/uL (3.50-5.40) Hemoglobin 10.5 g/dL (12.0-15.5) Hematocrit 32.1 % (36.0-47.0) Mean Corpuscular Volume 93 fL (79-100) Mean Corpuscular Hemoglobin 30 pg (25-35) Mean Corpuscular Hemoglobin Concent 33 g/dL (31-37) Red Cell Distribution Width 23.9 % (11.5-14.5) Platelet Count 217 x10^3/uL (140-400) Neutrophils (%) (Auto) 84 % (31-73) Lymphocytes (%) (Auto) 7 % (24-48) Monocytes (%) (Auto) 7 % (0-9) Eosinophils (%) (Auto) 1 % (0-3) Basophils (%) (Auto) 1 % (0-3) Neutrophils # (Auto) 10.3 x10^3/uL (1.8-7.7) Lymphocytes # (Auto) 0.9 x10^3/uL (1.0-4.8) Monocytes # (Auto) 0.9 x10^3/uL (0.0-1.1) Eosinophils # (Auto) 0.1 x10^3/uL (0.0-0.7) Basophils # (Auto) 0.1 x10^3/uL (0.0-0.2) Platelet Estimate Adequate (ADEQUATE) Polychromasia Slight Hypochromasia Slight Poikilocytosis Slight Anisocytosis Mod Spherocytes Occ Target Cells Few Tear Drop Cells Occ Ovalocytes Mod Helmet Cells Occ Carin Cells Present Crenated Cell Schistocytes Occ Lactic Acid Level 3.5 mmol/L (0.4-2.0) Sodium Level 140 mmol/L (136-145) Potassium Level 4.0 mmol/L (3.5-5.1) Chloride Level 101 mmol/L (98-107) Carbon Dioxide Level 25 mmol/L (21-32) Anion Gap 14 (6-14) Blood Urea Nitrogen 42 mg/dL (7-20) Creatinine 9.5 mg/dL (0.6-1.0) Estimated GFR (Cockcroft-Gault) 5.0 Glucose Level 161 mg/dL (70-99) Calcium Level 8.4 mg/dL (8.5-10.1) Total Bilirubin 1.7 mg/dL (0.2-1.0) Direct Bilirubin 1.4 mg/dL (0.0-0.2) Aspartate Amino Transf (AST/SGOT) 143 U/L (15-37) Alanine Aminotransferase (ALT/SGPT) 117 U/L (14-59) Alkaline Phosphatase 149 U/L (46-116) Troponin I Quantitative 0.272 ng/mL (0.000-0.055) XD-Ktd-R-Type Natriuretic Peptide > 68310 pg/mL (0-124) Total Protein 5.9 g/dL (6.4-8.2) Albumin 2.2 g/dL (3.4-5.0) Lipase 171 U/L (73-393) Laboratory Tests Test 09/03/19 16:38 09/03/19 17:20 White Blood Count 12.2 x10^3/uL (4.0-11.0) Red Blood Count 3.46 x10^6/uL (3.50-5.40) Hemoglobin 10.5 g/dL (12.0-15.5) Hematocrit 32.1 % (36.0-47.0) Mean Corpuscular Volume 93 fL (79-100) Mean Corpuscular Hemoglobin 30 pg (25-35) Mean Corpuscular Hemoglobin Concent 33 g/dL (31-37) Red Cell Distribution Width 23.9 % (11.5-14.5) Platelet Count 217 x10^3/uL (140-400) Neutrophils (%) (Auto) 84 % (31-73) Lymphocytes (%) (Auto) 7 % (24-48) Monocytes (%) (Auto) 7 % (0-9) Eosinophils (%) (Auto) 1 % (0-3) Basophils (%) (Auto) 1 % (0-3) Neutrophils # (Auto) 10.3 x10^3/uL (1.8-7.7) Lymphocytes # (Auto) 0.9 x10^3/uL (1.0-4.8) Monocytes # (Auto) 0.9 x10^3/uL (0.0-1.1) Eosinophils # (Auto) 0.1 x10^3/uL (0.0-0.7) Basophils # (Auto) 0.1 x10^3/uL (0.0-0.2) Platelet Estimate Adequate (ADEQUATE) Polychromasia Slight Hypochromasia Slight Poikilocytosis Slight Anisocytosis Mod Spherocytes Occ Target Cells Few Tear Drop Cells Occ Ovalocytes Mod Helmet Cells Occ Carin Cells Present Crenated Cell Schistocytes Occ Lactic Acid Level 3.5 mmol/L (0.4-2.0) Sodium Level 140 mmol/L (136-145) Potassium Level 4.0 mmol/L (3.5-5.1) Chloride Level 101 mmol/L (98-107) Carbon Dioxide Level 25 mmol/L (21-32) Anion Gap 14 (6-14) Blood Urea Nitrogen 42 mg/dL (7-20) Creatinine 9.5 mg/dL (0.6-1.0) Estimated GFR (Cockcroft-Gault) 5.0 Glucose Level 161 mg/dL (70-99) Calcium Level 8.4 mg/dL (8.5-10.1) Total Bilirubin 1.7 mg/dL (0.2-1.0) Direct Bilirubin 1.4 mg/dL (0.0-0.2) Aspartate Amino Transf (AST/SGOT) 143 U/L (15-37) Alanine Aminotransferase (ALT/SGPT) 117 U/L (14-59) Alkaline Phosphatase 149 U/L (46-116) Troponin I Quantitative 0.272 ng/mL (0.000-0.055) MH-Bhx-P-Type Natriuretic Peptide > 68828 pg/mL (0-124) Total Protein 5.9 g/dL (6.4-8.2) Albumin 2.2 g/dL (3.4-5.0) Lipase 171 U/L (73-393) Images: Images Chest x-ray showing possible right-sided pneumonia Assessment/Plan Assessment/Plan Possible right-sided pneumonia hypotension weakness cough resolving hypoglycemia Plan IV antibiotics Duo nebs Titrate O2 to keep sat greater than 90 Consult nephrology Consult pulmonary Consult infectious disease Home meds DVT prophylaxis Full code Trend labs Long-term prognosis guarded Justicifation of Admission Dx: Justifications for Admission: Justification of Admission Dx: Yes Chronic Renal Failure: Renail Failure ALLIE LUNA III DO Sep 03, 2019 20:15
[2019-09-03 20:35] VITALS: BP 81/54
[2019-09-03] MEDS: HYDROcodone/APAP 5/325MG 1 TAB TABLET PO PRN (20:42)
[2019-09-03 23:00] VITALS: BP 90/43
[2019-09-04] MEDS: HYDROcodone/APAP 5/325MG 1 TAB TABLET PO PRN ×2 (01:09→15:02)
[2019-09-04 02:55] VITALS: BP 112/52
[2019-09-04 05:04] LABS: BASO # 0.1 x10^3/uL (0.0-0.2); BASO % 1 % (0-3); EOS # 0.1 x10^3/uL (0.0-0.7); EOS % 1 % (0-3); HEMATOCRIT 33.5 % (36.0-47.0); HEMOGLOBIN 10.6 g/dL (12.0-15.5); LYMPH # 0.9 x10^3/uL (1.0-4.8); LYMPH % 8 % (24-48); MEAN CORPUSCULAR HEMOGLOBIN 31 pg (25-35); MEAN CORPUSCULAR HGB CONC 32 g/dL (31-37); MEAN CORPUSCULAR VOLUME 97 fL (79-100); MONO # 0.9 x10^3/uL (0.0-1.1); MONO % 8 % (0-9); NEUT # 8.6 x10^3/uL (1.8-7.7); NEUT % 82 % (31-73); PLATELET COUNT 147 x10^3/uL (140-400); RED BLOOD COUNT 3.46 x10^6/uL (3.50-5.40); RED CELL DISTRIBUTION WIDTH 24.6 % (11.5-14.5); WHITE BLOOD COUNT 10.6 x10^3/uL (4.0-11.0)
[2019-09-04 05:38] LABS: CALCIUM 9.1 mg/dL (8.5-10.1); CREATININE 9.8 mg/dL (0.6-1.0); GFR 4.8; POTASSIUM 4.6 mmol/L (3.5-5.1)
[2019-09-04] MEDS: PIPERACILLIN/TAZOBACTAM 2.25 GM in IV NORMAL SALINE 50ML 50 ML IV SCH ×3 (06:09→21:50)
[2019-09-04 07:00] VITALS: BP 84/42
[2019-09-04] MEDS ORDERED: FEMARA2.5 MG PO (07:58)
[2019-09-04] MEDS ORDERED: AMIO200T4 PO (07:58)
[2019-09-04] MEDS ORDERED: METO-239 PO (07:58)
[2019-09-04] MEDS ORDERED: WARF2TAB96 PO (07:58)
[2019-09-04] MEDS ORDERED: LIDO700A21 TP (07:58)
[2019-09-04] MEDS ORDERED: ALOG12.5 PO (07:58)
[2019-09-04] MEDS ORDERED: MONT10TA49 PO (07:58)
--- NOTE | 2019-09-04 08:02 | PDOC ---
Infectious Disease Note Vital Sign Vital Signs Vital Signs Date Time Temp Pulse Resp B/P (MAP) Pulse Ox O2 Delivery O2 Flow Rate FiO2 09/04/19 07:00 98.0 70 18 84/42 (56) 96 Room Air 98.0 09/04/19 02:10 2.0 Labs Lab Laboratory Tests Test 09/03/19 16:38 09/03/19 17:20 09/03/19 20:34 09/03/19 21:10 White Blood Count 12.2 x10^3/uL (4.0-11.0) Red Blood Count 3.46 x10^6/uL (3.50-5.40) Hemoglobin 10.5 g/dL (12.0-15.5) Hematocrit 32.1 % (36.0-47.0) Mean Corpuscular Volume 93 fL (79-100) Mean Corpuscular Hemoglobin 30 pg (25-35) Mean Corpuscular Hemoglobin Concent 33 g/dL (31-37) Red Cell Distribution Width 23.9 % (11.5-14.5) Platelet Count 217 x10^3/uL (140-400) Neutrophils (%) (Auto) 84 % (31-73) Lymphocytes (%) (Auto) 7 % (24-48) Monocytes (%) (Auto) 7 % (0-9) Eosinophils (%) (Auto) 1 % (0-3) Basophils (%) (Auto) 1 % (0-3) Neutrophils # (Auto) 10.3 x10^3/uL (1.8-7.7) Lymphocytes # (Auto) 0.9 x10^3/uL (1.0-4.8) Monocytes # (Auto) 0.9 x10^3/uL (0.0-1.1) Eosinophils # (Auto) 0.1 x10^3/uL (0.0-0.7) Basophils # (Auto) 0.1 x10^3/uL (0.0-0.2) Platelet Estimate Adequate (ADEQUATE) Polychromasia Slight Hypochromasia Slight Poikilocytosis Slight Anisocytosis Mod Spherocytes Occ Target Cells Few Tear Drop Cells Occ Ovalocytes Mod Helmet Cells Occ [place] Cells Present Crenated Cell Schistocytes Occ Lactic Acid Level 3.5 mmol/L (0.4-2.0) 2.7 mmol/L (0.4-2.0) Sodium Level 140 mmol/L (136-145) Potassium Level 4.0 mmol/L (3.5-5.1) Chloride Level 101 mmol/L (98-107) Carbon Dioxide Level 25 mmol/L (21-32) Anion Gap 14 (6-14) Blood Urea Nitrogen 42 mg/dL (7-20) Creatinine 9.5 mg/dL (0.6-1.0) Estimated GFR (Cockcroft-Gault) 5.0 Glucose Level 161 mg/dL (70-99) Calcium Level 8.4 mg/dL (8.5-10.1) Total Bilirubin 1.7 mg/dL (0.2-1.0) Direct Bilirubin 1.4 mg/dL (0.0-0.2) Aspartate Amino Transf (AST/SGOT) 143 U/L (15-37) Alanine Aminotransferase (ALT/SGPT) 117 U/L (14-59) Alkaline Phosphatase 149 U/L (46-116) Troponin I Quantitative 0.272 ng/mL (0.000-0.055) 0.285 ng/mL (0.000-0.055) XT-Xry-A-Type Natriuretic Peptide > 37119 pg/mL (0-124) Total Protein 5.9 g/dL (6.4-8.2) Albumin 2.2 g/dL (3.4-5.0) Lipase 171 U/L (73-393) Glucose (Fingerstick) 95 mg/dL (70-99) Test 09/04/19 01:10 09/04/19 02:00 09/04/19 07:32 Troponin I Quantitative 0.225 ng/mL (0.000-0.055) White Blood Count 10.6 x10^3/uL (4.0-11.0) Red Blood Count 3.46 x10^6/uL (3.50-5.40) Hemoglobin 10.6 g/dL (12.0-15.5) Hematocrit 33.5 % (36.0-47.0) Mean Corpuscular Volume 97 fL (79-100) Mean Corpuscular Hemoglobin 31 pg (25-35) Mean Corpuscular Hemoglobin Concent 32 g/dL (31-37) Red Cell Distribution Width 24.6 % (11.5-14.5) Platelet Count 147 x10^3/uL (140-400) Neutrophils (%) (Auto) 82 % (31-73) Lymphocytes (%) (Auto) 8 % (24-48) Monocytes (%) (Auto) 8 % (0-9) Eosinophils (%) (Auto) 1 % (0-3) Basophils (%) (Auto) 1 % (0-3) Neutrophils # (Auto) 8.6 x10^3/uL (1.8-7.7) Lymphocytes # (Auto) 0.9 x10^3/uL (1.0-4.8) Monocytes # (Auto) 0.9 x10^3/uL (0.0-1.1) Eosinophils # (Auto) 0.1 x10^3/uL (0.0-0.7) Basophils # (Auto) 0.1 x10^3/uL (0.0-0.2) Sodium Level 140 mmol/L (136-145) Potassium Level 4.6 mmol/L (3.5-5.1) Chloride Level 102 mmol/L (98-107) Carbon Dioxide Level 23 mmol/L (21-32) Anion Gap 15 (6-14) Blood Urea Nitrogen 43 mg/dL (7-20) Creatinine 9.8 mg/dL (0.6-1.0) Estimated GFR (Cockcroft-Gault) 4.8 Glucose Level 69 mg/dL (70-99) Calcium Level 9.1 mg/dL (8.5-10.1) Glucose (Fingerstick) 54 mg/dL (70-99) Micro Impression: 1. Loculated small to moderate right pleural effusion. 2. Right mid and basilar consolidations, may represent atelectasis or pneumonia. 3. Cardiomegaly, unchanged. Objective Assessment Leukocytosis CKD on HD ? Loculated r pleural effusion Hypotension DM Transamiitis - ? congestion Plan Plan of Care Cont Vanc and Zosyn F/u labs and cults add LFTs today await Pulm eval Thank you # [id number] KELSIE RAO MD Sep 04, 2019 08:02
--- NOTE | 2019-09-04 08:10 | PDOC ---
PROGRESS NOTES Chief Complaint Chief Complaint A/P: Loculated right pleural effusion ESRD Enlarged left thyroid Hypoglycemia DM2 - with hypoglycemia - stop sulfonylureas DVT/PE - no INR on admit, will cont coumadin and daily INR. History of Present Illness History of Present Illness Ms Lara is a 64 yo F w/ PMHx ESRD on HD, DVT with PE, DM2, HTN, HLD, anemia, carotid stenosis, atrial fibrillation who presents to ED after she went to hemodialysis and suddenly felt cold and felt like her sugar and blood pressure had dropped. She denied any fevers or chills or sweats, but felt weak. She was brought to [facility] and found to have a white count of 12.2 and at dialysis her glucose was 22 given D50. She was afebrile, but her blood pressure was in 80s/50s and glucose was 161. She underwent a chest x-ray, which showed a loculated small to moderate right pleural effusion, right mid basilar consolidations, atelectasis or pneumonia, this was confirmed on CT scan as a loculated right pleural effusion. Cultures were obtained. Started on vancomycin and Zosyn. Currently, she is sitting upright in bed. She is sitting in bed, glucose 59 this morning. She and her daughter note that the person that drives her to dialysis just tested positive for SARS-CoV-2 and she is requesting testing. Still with cough currently. She does note her painter drum had recommended she cut her glipizide in half or discontinue if she had further hypoglycemia. Vitals Vitals Vital Signs Date Time Temp Pulse Resp B/P (MAP) Pulse Ox O2 Delivery O2 Flow Rate FiO2 09/04/19 07:00 98.0 70 18 84/42 (56) 96 Room Air 98.0 09/04/19 02:10 2.0 Physical Exam General: Alert, Oriented X3, Cooperative Heart: Regular rate, Normal S1, Normal S2 Lungs: Other Abdomen: Normal bowel sounds, Soft Extremities: No clubbing, No cyanosis Skin: No rashes, No breakdown Labs LABS Laboratory Tests Test 09/03/19 16:38 09/03/19 17:20 09/03/19 20:34 09/03/19 21:10 White Blood Count 12.2 x10^3/uL (4.0-11.0) Red Blood Count 3.46 x10^6/uL (3.50-5.40) Hemoglobin 10.5 g/dL (12.0-15.5) Hematocrit 32.1 % (36.0-47.0) Mean Corpuscular Volume 93 fL (79-100) Mean Corpuscular Hemoglobin 30 pg (25-35) Mean Corpuscular Hemoglobin Concent 33 g/dL (31-37) Red Cell Distribution Width 23.9 % (11.5-14.5) Platelet Count 217 x10^3/uL (140-400) Neutrophils (%) (Auto) 84 % (31-73) Lymphocytes (%) (Auto) 7 % (24-48) Monocytes (%) (Auto) 7 % (0-9) Eosinophils (%) (Auto) 1 % (0-3) Basophils (%) (Auto) 1 % (0-3) Neutrophils # (Auto) 10.3 x10^3/uL (1.8-7.7) Lymphocytes # (Auto) 0.9 x10^3/uL (1.0-4.8) Monocytes # (Auto) 0.9 x10^3/uL (0.0-1.1) Eosinophils # (Auto) 0.1 x10^3/uL (0.0-0.7) Basophils # (Auto) 0.1 x10^3/uL (0.0-0.2) Platelet Estimate Adequate (ADEQUATE) Polychromasia Slight Hypochromasia Slight Poikilocytosis Slight Anisocytosis Mod Spherocytes Occ Target Cells Few Tear Drop Cells Occ Ovalocytes Mod Helmet Cells Occ Carin Cells Present Crenated Cell Schistocytes Occ Lactic Acid Level 3.5 mmol/L (0.4-2.0) 2.7 mmol/L (0.4-2.0) Sodium Level 140 mmol/L (136-145) Potassium Level 4.0 mmol/L (3.5-5.1) Chloride Level 101 mmol/L (98-107) Carbon Dioxide Level 25 mmol/L (21-32) Anion Gap 14 (6-14) Blood Urea Nitrogen 42 mg/dL (7-20) Creatinine 9.5 mg/dL (0.6-1.0) Estimated GFR (Cockcroft-Gault) 5.0 Glucose Level 161 mg/dL (70-99) Calcium Level 8.4 mg/dL (8.5-10.1) Total Bilirubin 1.7 mg/dL (0.2-1.0) Direct Bilirubin 1.4 mg/dL (0.0-0.2) Aspartate Amino Transf (AST/SGOT) 143 U/L (15-37) Alanine Aminotransferase (ALT/SGPT) 117 U/L (14-59) Alkaline Phosphatase 149 U/L (46-116) Troponin I Quantitative 0.272 ng/mL (0.000-0.055) 0.285 ng/mL (0.000-0.055) TS-Hku-G-Type Natriuretic Peptide > 47117 pg/mL (0-124) Total Protein 5.9 g/dL (6.4-8.2) Albumin 2.2 g/dL (3.4-5.0) Lipase 171 U/L (73-393) Glucose (Fingerstick) 95 mg/dL (70-99) Test 09/04/19 01:10 09/04/19 02:00 09/04/19 07:32 Troponin I Quantitative 0.225 ng/mL (0.000-0.055) White Blood Count 10.6 x10^3/uL (4.0-11.0) Red Blood Count 3.46 x10^6/uL (3.50-5.40) Hemoglobin 10.6 g/dL (12.0-15.5) Hematocrit 33.5 % (36.0-47.0) Mean Corpuscular Volume 97 fL (79-100) Mean Corpuscular Hemoglobin 31 pg (25-35) Mean Corpuscular Hemoglobin Concent 32 g/dL (31-37) Red Cell Distribution Width 24.6 % (11.5-14.5) Platelet Count 147 x10^3/uL (140-400) Neutrophils (%) (Auto) 82 % (31-73) Lymphocytes (%) (Auto) 8 % (24-48) Monocytes (%) (Auto) 8 % (0-9) Eosinophils (%) (Auto) 1 % (0-3) Basophils (%) (Auto) 1 % (0-3) Neutrophils # (Auto) 8.6 x10^3/uL (1.8-7.7) Lymphocytes # (Auto) 0.9 x10^3/uL (1.0-4.8) Monocytes # (Auto) 0.9 x10^3/uL (0.0-1.1) Eosinophils # (Auto) 0.1 x10^3/uL (0.0-0.7) Basophils # (Auto) 0.1 x10^3/uL (0.0-0.2) Sodium Level 140 mmol/L (136-145) Potassium Level 4.6 mmol/L (3.5-5.1) Chloride Level 102 mmol/L (98-107) Carbon Dioxide Level 23 mmol/L (21-32) Anion Gap 15 (6-14) Blood Urea Nitrogen 43 mg/dL (7-20) Creatinine 9.8 mg/dL (0.6-1.0) Estimated GFR (Cockcroft-Gault) 4.8 Glucose Level 69 mg/dL (70-99) Calcium Level 9.1 mg/dL (8.5-10.1) Glucose (Fingerstick) 54 mg/dL (70-99) Comment Review of Relevant I have reviewed the following items caroline (where applicable) has been applied. Labs Laboratory Tests Test 09/03/19 16:38 09/03/19 17:20 09/03/19 20:34 09/03/19 21:10 White Blood Count 12.2 x10^3/uL (4.0-11.0) Red Blood Count 3.46 x10^6/uL (3.50-5.40) Hemoglobin 10.5 g/dL (12.0-15.5) Hematocrit 32.1 % (36.0-47.0) Mean Corpuscular Volume 93 fL (79-100) Mean Corpuscular Hemoglobin 30 pg (25-35) Mean Corpuscular Hemoglobin Concent 33 g/dL (31-37) Red Cell Distribution Width 23.9 % (11.5-14.5) Platelet Count 217 x10^3/uL (140-400) Neutrophils (%) (Auto) 84 % (31-73) Lymphocytes (%) (Auto) 7 % (24-48) Monocytes (%) (Auto) 7 % (0-9) Eosinophils (%) (Auto) 1 % (0-3) Basophils (%) (Auto) 1 % (0-3) Neutrophils # (Auto) 10.3 x10^3/uL (1.8-7.7) Lymphocytes # (Auto) 0.9 x10^3/uL (1.0-4.8) Monocytes # (Auto) 0.9 x10^3/uL (0.0-1.1) Eosinophils # (Auto) 0.1 x10^3/uL (0.0-0.7) Basophils # (Auto) 0.1 x10^3/uL (0.0-0.2) Platelet Estimate Adequate (ADEQUATE) Polychromasia Slight Hypochromasia Slight Poikilocytosis Slight Anisocytosis Mod Spherocytes Occ Target Cells Few Tear Drop Cells Occ Ovalocytes Mod Helmet Cells Occ Ostrander Cells Present Crenated Cell Schistocytes Occ Lactic Acid Level 3.5 mmol/L (0.4-2.0) 2.7 mmol/L (0.4-2.0) Sodium Level 140 mmol/L (136-145) Potassium Level 4.0 mmol/L (3.5-5.1) Chloride Level 101 mmol/L (98-107) Carbon Dioxide Level 25 mmol/L (21-32) Anion Gap 14 (6-14) Blood Urea Nitrogen 42 mg/dL (7-20) Creatinine 9.5 mg/dL (0.6-1.0) Estimated GFR (Cockcroft-Gault) 5.0 Glucose Level 161 mg/dL (70-99) Calcium Level 8.4 mg/dL (8.5-10.1) Total Bilirubin 1.7 mg/dL (0.2-1.0) Direct Bilirubin 1.4 mg/dL (0.0-0.2) Aspartate Amino Transf (AST/SGOT) 143 U/L (15-37) Alanine Aminotransferase (ALT/SGPT) 117 U/L (14-59) Alkaline Phosphatase 149 U/L (46-116) Troponin I Quantitative 0.272 ng/mL (0.000-0.055) 0.285 ng/mL (0.000-0.055) PV-Ewo-E-Type Natriuretic Peptide > 21966 pg/mL (0-124) Total Protein 5.9 g/dL (6.4-8.2) Albumin 2.2 g/dL (3.4-5.0) Lipase 171 U/L (73-393) Glucose (Fingerstick) 95 mg/dL (70-99) Test 09/04/19 01:10 09/04/19 02:00 09/04/19 07:32 Troponin I Quantitative 0.225 ng/mL (0.000-0.055) White Blood Count 10.6 x10^3/uL (4.0-11.0) Red Blood Count 3.46 x10^6/uL (3.50-5.40) Hemoglobin 10.6 g/dL (12.0-15.5) Hematocrit 33.5 % (36.0-47.0) Mean Corpuscular Volume 97 fL (79-100) Mean Corpuscular Hemoglobin 31 pg (25-35) Mean Corpuscular Hemoglobin Concent 32 g/dL (31-37) Red Cell Distribution Width 24.6 % (11.5-14.5) Platelet Count 147 x10^3/uL (140-400) Neutrophils (%) (Auto) 82 % (31-73) Lymphocytes (%) (Auto) 8 % (24-48) Monocytes (%) (Auto) 8 % (0-9) Eosinophils (%) (Auto) 1 % (0-3) Basophils (%) (Auto) 1 % (0-3) Neutrophils # (Auto) 8.6 x10^3/uL (1.8-7.7) Lymphocytes # (Auto) 0.9 x10^3/uL (1.0-4.8) Monocytes # (Auto) 0.9 x10^3/uL (0.0-1.1) Eosinophils # (Auto) 0.1 x10^3/uL (0.0-0.7) Basophils # (Auto) 0.1 x10^3/uL (0.0-0.2) Sodium Level 140 mmol/L (136-145) Potassium Level 4.6 mmol/L (3.5-5.1) Chloride Level 102 mmol/L (98-107) Carbon Dioxide Level 23 mmol/L (21-32) Anion Gap 15 (6-14) Blood Urea Nitrogen 43 mg/dL (7-20) Creatinine 9.8 mg/dL (0.6-1.0) Estimated GFR (Cockcroft-Gault) 4.8 Glucose Level 69 mg/dL (70-99) Calcium Level 9.1 mg/dL (8.5-10.1) Glucose (Fingerstick) 54 mg/dL (70-99) Laboratory Tests Test 09/03/19 16:38 09/03/19 17:20 09/03/19 20:34 09/03/19 21:10 White Blood Count 12.2 x10^3/uL (4.0-11.0) Red Blood Count 3.46 x10^6/uL (3.50-5.40) Hemoglobin 10.5 g/dL (12.0-15.5) Hematocrit 32.1 % (36.0-47.0) Mean Corpuscular Volume 93 fL (79-100) Mean Corpuscular Hemoglobin 30 pg (25-35) Mean Corpuscular Hemoglobin Concent 33 g/dL (31-37) Red Cell Distribution Width 23.9 % (11.5-14.5) Platelet Count 217 x10^3/uL (140-400) Neutrophils (%) (Auto) 84 % (31-73) Lymphocytes (%) (Auto) 7 % (24-48) Monocytes (%) (Auto) 7 % (0-9) Eosinophils (%) (Auto) 1 % (0-3) Basophils (%) (Auto) 1 % (0-3) Neutrophils # (Auto) 10.3 x10^3/uL (1.8-7.7) Lymphocytes # (Auto) 0.9 x10^3/uL (1.0-4.8) Monocytes # (Auto) 0.9 x10^3/uL (0.0-1.1) Eosinophils # (Auto) 0.1 x10^3/uL (0.0-0.7) Basophils # (Auto) 0.1 x10^3/uL (0.0-0.2) Platelet Estimate Adequate (ADEQUATE) Polychromasia Slight Hypochromasia Slight Poikilocytosis Slight Anisocytosis Mod Spherocytes Occ Target Cells Few Tear Drop Cells Occ Ovalocytes Mod Helmet Cells Occ Carin Cells Present Crenated Cell Schistocytes Occ Lactic Acid Level 3.5 mmol/L (0.4-2.0) 2.7 mmol/L (0.4-2.0) Sodium Level 140 mmol/L (136-145) Potassium Level 4.0 mmol/L (3.5-5.1) Chloride Level 101 mmol/L (98-107) Carbon Dioxide Level 25 mmol/L (21-32) Anion Gap 14 (6-14) Blood Urea Nitrogen 42 mg/dL (7-20) Creatinine 9.5 mg/dL (0.6-1.0) Estimated GFR (Cockcroft-Gault) 5.0 Glucose Level 161 mg/dL (70-99) Calcium Level 8.4 mg/dL (8.5-10.1) Total Bilirubin 1.7 mg/dL (0.2-1.0) Direct Bilirubin 1.4 mg/dL (0.0-0.2) Aspartate Amino Transf (AST/SGOT) 143 U/L (15-37) Alanine Aminotransferase (ALT/SGPT) 117 U/L (14-59) Alkaline Phosphatase 149 U/L (46-116) Troponin I Quantitative 0.272 ng/mL (0.000-0.055) 0.285 ng/mL (0.000-0.055) RT-Oxw-K-Type Natriuretic Peptide > 78026 pg/mL (0-124) Total Protein 5.9 g/dL (6.4-8.2) Albumin 2.2 g/dL (3.4-5.0) Lipase 171 U/L (73-393) Glucose (Fingerstick) 95 mg/dL (70-99) Test 09/04/19 01:10 09/04/19 02:00 09/04/19 07:32 Troponin I Quantitative 0.225 ng/mL (0.000-0.055) White Blood Count 10.6 x10^3/uL (4.0-11.0) Red Blood Count 3.46 x10^6/uL (3.50-5.40) Hemoglobin 10.6 g/dL (12.0-15.5) Hematocrit 33.5 % (36.0-47.0) Mean Corpuscular Volume 97 fL (79-100) Mean Corpuscular Hemoglobin 31 pg (25-35) Mean Corpuscular Hemoglobin Concent 32 g/dL (31-37) Red Cell Distribution Width 24.6 % (11.5-14.5) Platelet Count 147 x10^3/uL (140-400) Neutrophils (%) (Auto) 82 % (31-73) Lymphocytes (%) (Auto) 8 % (24-48) Monocytes (%) (Auto) 8 % (0-9) Eosinophils (%) (Auto) 1 % (0-3) Basophils (%) (Auto) 1 % (0-3) Neutrophils # (Auto) 8.6 x10^3/uL (1.8-7.7) Lymphocytes # (Auto) 0.9 x10^3/uL (1.0-4.8) Monocytes # (Auto) 0.9 x10^3/uL (0.0-1.1) Eosinophils # (Auto) 0.1 x10^3/uL (0.0-0.7) Basophils # (Auto) 0.1 x10^3/uL (0.0-0.2) Sodium Level 140 mmol/L (136-145) Potassium Level 4.6 mmol/L (3.5-5.1) Chloride Level 102 mmol/L (98-107) Carbon Dioxide Level 23 mmol/L (21-32) Anion Gap 15 (6-14) Blood Urea Nitrogen 43 mg/dL (7-20) Creatinine 9.8 mg/dL (0.6-1.0) Estimated GFR (Cockcroft-Gault) 4.8 Glucose Level 69 mg/dL (70-99) Calcium Level 9.1 mg/dL (8.5-10.1) Glucose (Fingerstick) 54 mg/dL (70-99) Medications Current Medications Sodium Chloride 500 ml @ 500 mls/hr 1X ONCE IV Last administered on 09/03/19at 16:48; Start 09/03/19 at 16:15; Stop 09/03/19 at 17:14; Status DC Vancomycin HCl (Vanco Per Pharmacy) 1 each PRN DAILY PRN MC SEE COMMENTS Last administered on 09/03/19at 19:09; Start 09/03/19 at 17:00 Piperacillin Sod/ Tazobactam Sod (Zosyn Per Pharmacy) 1 each PRN DAILY PRN MC SEE COMMENTS; Start 09/03/19 at 17:00 Piperacillin Sod/ Tazobactam Sod 2.25 gm/Sodium Chloride 50 ml @ 100 mls/hr ONCE ONCE IV Last administered on 09/03/19at 17:29; Start 09/03/19 at 17:00; Stop 09/03/19 at 17:29; Status DC Vancomycin HCl 2 gm/Sodium Chloride 500 ml @ 250 mls/hr ONCE ONCE IV Last administered on 09/03/19at 18:04; Start 09/03/19 at 17:30; Stop 09/03/19 at 19:29; Status DC Ondansetron HCl (Zofran) 4 mg PRN Q8HRS PRN IV NAUSEA/VOMITING; Start 09/03/19 at 18:30; Stop 09/04/19 at 18:29 Sodium Chloride 500 ml @ 500 mls/hr 1X ONCE IV Last administered on 09/03/19at 18:44; Start 09/03/19 at 18:30; Stop 09/03/19 at 19:29; Status DC Piperacillin Sod/ Tazobactam Sod 2.25 gm/Sodium Chloride 50 ml @ 100 mls/hr Q8HRS IV Last administered on 09/04/19at 06:09; Start 09/04/19 at 06:00 Vancomycin HCl (Vancomycin Random Level) 1 each 1X ONCE MC ; Start 09/05/19 at 06:00; Stop 09/05/19 at 06:01 Acetaminophen/ Hydrocodone Bitart (Lortab 5/325) 1 tab PRN Q4HRS PRN PO PAIN Last administered on 09/04/19at 01:09; Start 09/03/19 at 20:30 Active Scripts Active Nitrostat (Nitroglycerin) 0.4 Mg Tab.subl 0.4 Mg SL PRN Q5MIN PRN 20 Days Reported Lidocaine PATCH (Lidocaine) 1 Each Adh..patch 1 Each TP DAILY REMOVE AFTER 12 HOURS Nesina (Alogliptin Benzoate) 12.5 Mg Tablet 1 Tab PO DAILY 30 Days Metoprolol Succinate ( Xl ) (Metoprolol Succinate) 25 Mg Tab.er.24h 25 Tab PO DAILY Montelukast Sodium Tablet (Montelukast Sodium) 10 Mg Tablet 10 Mg PO HS Warfarin Sodium 2 Mg Tablet 2 Mg PO DAILY Amiodarone Hcl 200 Mg Tablet 1 Tab PO DAILY Renvela (Sevelamer Carbonate) 800 Mg Tablet 800 Mg PO TIDWMEALS Clopidogrel (Clopidogrel Bisulfate) 75 Mg Tablet 75 Mg PO DAILY Latanoprost 2.5 Ml Drops 1 Drop EACHEYE QHS Symbicort 160-4.5 Mcg Inhaler (Budesonide/Formoterol Fumarate) 10.2 Gm Hfa.aer.ad 2 Puff IH BID Glipizide 5 Mg Tablet 2.5 Mg PO DAILY Jacquie-Debbi Tablet (Folic Acid/Vitamin B Comp W-C) 0.8 Mg Tablet 0.8 Mg PO DAILY Atorvastatin Calcium 40 Mg Tablet 1 Tab PO DAILY Femara (Letrozole) 2.5 Mg Tablet 1 Tab PO DAILY 30 Days Vitals/I & O Vital Sign - Last 24 Hours 09/03/19 09/03/19 09/03/19 09/03/19 16:12 16:49 17:06 17:36 Temp 98.7 98.7 Pulse 73 74 78 78 Resp 18 18 18 18 B/P (MAP) 83/53 (63) Pulse Ox 100 100 100 100 O2 Delivery Nasal Cannula O2 Flow Rate 2.0 09/03/19 09/03/19 09/03/19 09/03/19 18:28 18:36 18:44 18:51 Pulse 78 78 78 68 Resp 18 18 18 18 Pulse Ox 100 100 100 100 09/03/19 09/03/19 09/03/19 09/03/19 19:06 19:21 20:35 20:42 Temp 97.8 97.8 Pulse 78 68 92 Resp 18 18 18 20 B/P (MAP) 81/54 (63) Pulse Ox 100 100 100 99 O2 Delivery Nasal Cannula O2 Flow Rate 2.0 09/03/19 09/03/19 09/04/19 09/04/19 22:21 23:00 01:09 02:10 Temp 97.7 97.7 Pulse 96 Resp 16 19 18 18 B/P (MAP) 90/43 (59) Pulse Ox 97 97 95 O2 Delivery Nasal Cannula Nasal Cannula O2 Flow Rate 2.0 2.0 09/04/19 09/04/19 02:55 07:00 Temp 97.8 98.0 97.8 98.0 Pulse 68 70 Resp 18 18 B/P (MAP) 112/52 (72) 84/42 (56) Pulse Ox 98 96 O2 Delivery Room Air Intake and Output 09/03/19 09/03/19 09/04/19 15:00 23:00 07:00 Intake Total 750 ml 200 ml Output Total 0 ml Balance 750 ml 200 ml Justicifation of Admission Dx: Justifications for Admission: Justification of Admission Dx: Yes Chronic Renal Failure: Renail Failure ALEA SWIFT MD Sep 04, 2019 08:10
[2019-09-04 09:06] LABS: ALBUMIN 2.1 g/dL (3.4-5.0); DIRECT BILIRUBIN 1.3 mg/dL (0.0-0.2); TOTAL BILIRUBIN 1.7 mg/dL (0.2-1.0); TOTAL PROTEIN 6.5 g/dL (6.4-8.2)
[2019-09-04] MEDS ORDERED: DIALYSIS PATIENT. MC PRN ×2 (09:15)
[2019-09-04] MEDS ORDERED: ALBUMIN HUMAN 25% 200 ML IV PRN (09:15)
[2019-09-04] MEDS ORDERED: IV NORMAL SALINE 1000ML BAG 1,000 ML IV PRN ×2 (09:15)
[2019-09-04] MEDS ORDERED: diphenhydrAMINE 50 MG/ML VIAL IV PRN (09:15)
[2019-09-04 10:32] VITALS: BP 122/58
[2019-09-04] MEDS ORDERED: PANTOPRAZOLE 40 MG TABLET.DR. PO SCH (10:45)
--- NOTE | 2019-09-04 10:51 | CONS ---
DATE OF CONSULTATION: 09/04/2019 I was asked to see this 64-year-old lady for abnormal chest x-ray. HISTORY OF PRESENT ILLNESS: She has remote history of smoking, but quit smoking about 40 years ago. She does have diagnosis of COPD and is on Symbicort. She was admitted to [facility] last month and was diagnosed with pulmonary embolism. She is on Coumadin. For the past few days, she has had shortness of breath, cough with sputum and small amounts of streaks of blood. She denies chest pain. She has felt tired. She was brought to the Emergency Room. Her blood pressure was low. She has had uncontrolled hyperglycemia, but on arrival to the Emergency Room yesterday, her blood glucose was 50; she was given p.o. glucose. She is on hemodialysis. She has end-stage renal disease for the past 6 years. In the emergency room, her blood pressure was low. She was given 500 mL of IV fluid. Her systolic blood pressure increased to 110. IV antibiotics is started. PAST MEDICAL HISTORY: COPD, end-stage renal disease; on hemodialysis, coronary artery disease, CHF, diabetes mellitus, overweight. SOCIAL HISTORY: Remote history of smoking, quit smoking about 40 years ago. FAMILY HISTORY: There is no history of lung disease. ALLERGIES: IODINE, SHELLFISH. MEDICATIONS: Currently, she is on vancomycin and Zosyn. REVIEW OF SYSTEMS: As mentioned above, other systems otherwise negative. PHYSICAL EXAMINATION: GENERAL: This is an overweight lady. VITAL SIGNS: Her O2 saturation on room air is 96%, respiratory rate 18, heart rate 68, blood pressure 112/52, temperature 97.8. HEENT: Normocephalic, atraumatic. Pupils equal, round, reactive to light. Throat: There is shallow oropharynx. Nose is clear. NECK: Positive JVD. No lymphadenopathy or thyromegaly. CARDIOVASCULAR: Distant heart sounds, regular rate and rhythm. PMI is nondisplaced. CHEST: Inspection is normal. LUNGS: There are bibasilar crackles, dullness at the right base. ABDOMEN: Soft and obese. Bowel sounds are good. EXTREMITIES: There is no cyanosis. LYMPHATICS: There is no lymphadenopathy. NEUROLOGIC: Alert and oriented. SKIN: Chronic changes. LABORATORY DATA: I reviewed the following lab data: Chest x-ray shows cardiomegaly, right infiltrates/effusion. WBC 12.2, hemoglobin 10.5, platelets 217. Sodium 140, potassium 4.6, chloride 102, CO2 of 23, glucose 69, BUN 43, creatinine 9.8. Total bili 1.7, AST 149, ALT 123, alk phos 145. BNP 0.225. Lipase 171. Lactic acid 2.7. BNP more than 35,000. IMPRESSION: 1. Dyspnea, multifactorial in etiology, including volume overload, rule out pneumonia, chronic obstructive pulmonary disease versus others. 2. Abnormal chest x-ray. 3. Recent history of pulmonary embolism. 4. Chronic obstructive pulmonary disease. 5. Leukocytosis, ? right loculated pleural effusion, ? pneumonia. 6. End-stage renal disease, on hemodialysis. 7. Hypotension, ? sepsis. 8. Diabetes mellitus. 9. Transaminitis, ? secondary to congestive heart failure versus others. PLAN AND RECOMMENDATIONS: 1. Titrate FiO2 to keep O2 saturation 92%. 2. I will do a CT of the chest to have a better look at right infiltrates/effusion. 3. Continue vancomycin and Zosyn, ID is consulted. 4. Followup labs and cultures. 5. Coumadin per primary doctor. 6. Check PT/INR. 7. Start Protonix for stress ulcer prophylaxis. 8. Monitor respiratory status and hemoptysis. Thank you very much for allowing me to participate in care of this very nice lady. The findings and recommendations were discussed with the patient and RN. I have answered all of the patient's questions. She understood and agreed to proceed with the plan. ELVIRA SARMIETNO M.D. : CLAYTON/prabha JOB#: [id number] / [id number]
--- NOTE | 2019-09-04 11:16 | RAD ---
CT chest without contrast 09/04/2019. Reason for exam: Abnormal chest x-ray. Helical noncontrast images were performed. Sagittal and coronal reconstructions were obtained. Exposure: One or more of the following individualized dose reduction techniques were utilized for this examination: 1. Automated exposure control 2. Adjustment of the mA and/or kV according to patient size 3. Use of iterative reconstruction technique. Correlation is made with a radiograph of the previous day. FINDINGS: There is a fairly large right-sided pleural effusion with areas of loculation laterally. There is some adjacent atelectasis. No large area of consolidation is seen in the right lung. There is minimal atelectasis or scarring in the left lung without left-sided effusion. The central airways show no obstruction. The trachea is deviated some to the right by an enlarged left thyroid lobe that likely contains at least one nodule. There are some mildly prominent left axillary lymph nodes with calcification. The largest node measures roughly 1.5 cm. Evaluation of the mediastinum and domonique is limited by lack of contrast. There is a stent bowel device at the aortic valve. There is no obvious mediastinal adenopathy or hilar adenopathy. IMPRESSION: There is a large partly loculated right-sided pleural effusion with some adjacent compressive atelectasis. There is an enlarged left thyroid lobe. Electronically signed by: Hudson Hsu Jr., MD (09/04/2019 11:13 AM) [id number]
--- NOTE | 2019-09-04 11:17 | CONS ---
DATE OF CONSULTATION: 09/04/2019 INFECTIOUS DISEASE CONSULTATION NOTE LOCATION: The patient's room is 309. REQUESTING PHYSICIAN: Dr. Hatfield. REASON FOR CONSULTATION: Pneumonia. HISTORY OF PRESENT ILLNESS: The patient is a pleasant 64-year-old with a history of chronic kidney disease for which she is on hemodialysis. She states yesterday she went to hemodialysis and suddenly felt cold and felt like her sugar and blood pressure had dropped. She denied any fevers or chills or sweats, but felt weak. She was brought to [facility] and found to have a white count of 12.2. She was afebrile, but her blood pressure was in 80s/50s and glucose was 161. She underwent a chest x-ray, which showed a loculated small to moderate right pleural effusion, right mid basilar consolidations, atelectasis or pneumonia. Cultures were obtained. She has been admitted to the hospital. She was placed on vancomycin and Zosyn. Currently, she is sitting upright in bed. She is eating breakfast. She feels a little cold. She has not been on any antibiotics prior to her admission she states. She has had some loose stools for several months, but she has no cramps or bloating. No headache, sinus issues, has a dry cough. Denies any falls or trauma. PAST MEDICAL HISTORY: Positive for chronic kidney disease; history of acute pulmonary embolism with DVT, right lower extremity; type 2 diabetes; hypertension; hyperlipidemia; SIRS; morbid obesity; plantar fasciitis; anemia; left bundle branch block; history of ____ carotid stenosis; history of aortic stenosis and atrial fibrillation. PAST SURGICAL HISTORY: Positive for hysterectomy, history of colonoscopy, left upper extremity AV shunt placement. She has a history of TAVR and right carotid endarterectomy. REVIEW OF SYSTEMS: Otherwise negative. ALLERGIES: LISTED IODINE AND SHELLFISH. SOCIAL HISTORY: No tobacco or alcohol. She lives with her daughter and granddaughter. She has no pets at home. FAMILY HISTORY: Positive for hypertension. CURRENT MEDICATIONS: Include Zosyn, vancomycin and p.r.n. medications. PHYSICAL EXAMINATION: VITAL SIGNS: Temperature 98, pulse 70, respirations 18, blood pressure 84/42, satting 96% on room air. CONSTITUTIONAL: She is sitting upright in bed, cooperative. She is in no acute distress. She is eating. HEENT: Pupils equal and reactive. Normal conjunctivae. Oral cavity, pharynx clear. NECK: Supple. Good range of motion. LUNGS: Clear to auscultation bilaterally. HEART: S1, S2. ABDOMEN: Obese, soft, nontender with no guarding. EXTREMITIES: No clubbing, cyanosis or gross edema. She also has a right upper extremity AV fistula. SKIN: Warm to touch without signs of rash. She has a chronic scar in her right lower extremity. NEUROLOGIC: She is nonfocal. PSYCHIATRIC: Affect is pleasant. LABORATORY VALUES: White count today 10.6, hemoglobin 10.6, platelets of 147, neutrophils 82. Glucose was 69. AST was 143, ALT 117, alkaline phosphatase 149. ProBNP was greater than 35,000. Troponin mildly elevated 0.272. RADIOLOGY: Reviewed in history of present illness. IMPRESSION: 1. Leukocytosis. 2. Chronic kidney disease, on hemodialysis. 3. Questionable loculated right pleural effusion. 4. Hypertension. 5. Diabetes. 6. Transaminitis, questionable secondary to congestion. RECOMMENDATIONS: We will continue vancomycin and Zosyn. We will follow up labs and cultures. Add LFTs today. Await pulmonary evaluation. Thank you for the patient's care. If you have any further questions, please do not hesitate to contact me. KELSIE RAO MD DR: ISMAEL/prabha JOB#: [id number] / [id number] RAFAEL
[2019-09-04] MEDS: IPRATRPIUM/ALBUTEROL 0.5/2.5MG 3 ML NEBU. NEB SCH ×3 (11:30→20:11)
[2019-09-04] MEDS ORDERED: NITROGLYCERIN SUBLINGUAL 0.4 MG BOTTLE OF 25. SL PRN (13:15)
--- NOTE | 2019-09-04 13:24 | PDOC2 ---
CONSULT Date of Consult Date of Consult DATE: 09/04/19 TIME: 13:18 Reason for Consult Reason for Consult: ESRD missed dialysis Referring Physician Referring Physician: Arianna Hatfield Identification/Chief Complaint Chief Complaint Hypotension at dialysis Source Source: Chart review, Patient History of Present Illness Reason for Visit: . Patient is a pleasant 64-year-old -[place] female followed by Dr. Miller. She dialyzes at [facility] on a Friday basis under his care. She has been on dialysis for approximately 6 years and tells me that her ESRD is secondary to uncontrolled longstanding hypertension. She usually takes her blood pressure medications before she goes to dialysis however yesterday she was found to be grossly hypotensive and symptomatic from the same and hence dialysis was unable to be initiated. She was then sent to the ER for further evaluation and a fluid bolus was given to where she felt better, and blood pressures normalized. It was however too late to send her to dialysis and no labs were available at time of my conversation with the ER physician and hence she was admitted to the hospital to accomplish her dialysis today. It is however noted that she has a elevated LFTs, elevated lactic acid and a possible pneumonia. She is admitted for the same at this time and I was asked to see her for ESRD dialysis Past Medical History Cardiovascular: AFIB, CAD, CHF, HTN, Hyperlipidemia, Aortic stenosis Pulmonary: COPD, Other CENTRAL NERVOUS SYSTEM: Periperal neuropathy GI: No pertinent hx Heme/Onc: Anemia NOS, Other Musculoskeletal: Osteoarthritis, Other Renal/: Chronic renal failure Endocrine: Diabetes Past Surgical History Past Surgical History: Hernia Repair, Other Family History Family History: Cancer Social History ALCOHOL: none Drugs: None Lives: with Family Current Medications Current Medications Current Medications Sodium Chloride 500 ml @ 500 mls/hr 1X ONCE IV Last administered on 09/03/19at 16:48; Start 09/03/19 at 16:15; Stop 09/03/19 at 17:14; Status DC Vancomycin HCl (Vanco Per Pharmacy) 1 each PRN DAILY PRN MC SEE COMMENTS Last administered on 09/03/19at 19:09; Start 09/03/19 at 17:00 Piperacillin Sod/ Tazobactam Sod (Zosyn Per Pharmacy) 1 each PRN DAILY PRN MC SEE COMMENTS; Start 09/03/19 at 17:00 Piperacillin Sod/ Tazobactam Sod 2.25 gm/Sodium Chloride 50 ml @ 100 mls/hr ONCE ONCE IV Last administered on 09/03/19at 17:29; Start 09/03/19 at 17:00; Stop 09/03/19 at 17:29; Status DC Vancomycin HCl 2 gm/Sodium Chloride 500 ml @ 250 mls/hr ONCE ONCE IV Last administered on 09/03/19at 18:04; Start 09/03/19 at 17:30; Stop 09/03/19 at 19:29; Status DC Ondansetron HCl (Zofran) 4 mg PRN Q8HRS PRN IV NAUSEA/VOMITING; Start 09/03/19 at 18:30; Stop 09/04/19 at 18:29 Sodium Chloride 500 ml @ 500 mls/hr 1X ONCE IV Last administered on 09/03/19at 18:44; Start 09/03/19 at 18:30; Stop 09/03/19 at 19:29; Status DC Piperacillin Sod/ Tazobactam Sod 2.25 gm/Sodium Chloride 50 ml @ 100 mls/hr Q8HRS IV Last administered on 09/04/19at 06:09; Start 09/04/19 at 06:00 Vancomycin HCl (Vancomycin Random Level) 1 each 1X ONCE MC ; Start 09/05/19 at 06:00; Stop 09/05/19 at 06:01 Acetaminophen/ Hydrocodone Bitart (Lortab 5/325) 1 tab PRN Q4HRS PRN PO PAIN Last administered on 09/04/19at 01:09; Start 09/03/19 at 20:30 Sodium Chloride 1,000 ml @ 1,000 mls/hr Q1H PRN IV hypotension; Start 09/04/19 at 09:15; Stop 09/04/19 at 15:14 Albumin Human 200 ml @ 200 mls/hr 1X PRN PRN IV Hypotension; Start 09/04/19 at 09:15; Stop 09/04/19 at 15:14 Diphenhydramine HCl (Benadryl) 25 mg 1X PRN PRN IV ITCHING; Start 09/04/19 at 09:15; Stop 09/05/19 at 09:14 Sodium Chloride 1,000 ml @ 400 mls/hr Q2H30M PRN IV PATENCY; Start 09/04/19 at 09:15; Stop 09/04/19 at 21:14 Info (PHARMACY MONITORING -- do not chart) 1 each PRN DAILY PRN MC SEE COMMENTS; Start 09/04/19 at 09:15 Info (PHARMACY MONITORING -- do not chart) 1 each PRN DAILY PRN MC SEE COMMENTS; Start 09/04/19 at 09:15; Status UNV Pantoprazole Sodium (Protonix) 40 mg 1X PO ; Start 09/04/19 at 10:45 Albuterol/ Ipratropium (Duoneb) 3 ml RTQID NEB Last administered on 09/04/19at 11:30; Start 09/04/19 at 12:00 Amiodarone HCl (Cordarone) 200 mg DAILY PO ; Start 09/04/19 at 13:00 Atorvastatin Calcium (Lipitor) 40 mg QHS PO ; Start 09/04/19 at 21:00 Clopidogrel Bisulfate (Plavix) 75 mg DAILY PO ; Start 09/04/19 at 13:30 Vitamin B Complex/ Vitamin C (Jacquie-Debbi) 1 tab DAILY PO ; Start 09/04/19 at 13:30 Latanoprost (Xalatan) 1 drop QHS OU ; Start 09/04/19 at 21:00 Lidocaine (Lidoderm) 1 patch DAILY TP ; Start 09/04/19 at 13:30 Metoprolol Succinate (Toprol Xl) 25 mg DAILY PO ; Start 09/04/19 at 13:30 Montelukast Sodium (Singulair) 10 mg HS PO ; Start 09/04/19 at 21:00 Nitroglycerin (Nitrostat) 0.4 mg PRN Q5MIN PRN SL CHEST PAIN; Start 09/04/19 at 13:15 Sevelamer Carbonate (Renvela) 800 mg TIDWMEALS PO ; Start 09/04/19 at 17:00 Warfarin Sodium (Coumadin) 2 mg DAILY PO ; Start 09/05/19 at 09:00; Status UNV Active Scripts Active Nitrostat (Nitroglycerin) 0.4 Mg Tab.subl 0.4 Mg SL PRN Q5MIN PRN 20 Days Reported Femara (Letrozole) 2.5 Mg Tablet 1 Tab PO DAILY 30 Days Lidocaine PATCH (Lidocaine) 1 Each Adh..patch 1 Each TP DAILY REMOVE AFTER 12 HOURS Nesina (Alogliptin Benzoate) 12.5 Mg Tablet 1 Tab PO DAILY 30 Days Metoprolol Succinate ( Xl ) (Metoprolol Succinate) 25 Mg Tab.er.24h 25 Tab PO DAILY Montelukast Sodium Tablet (Montelukast Sodium) 10 Mg Tablet 10 Mg PO HS Warfarin Sodium 2 Mg Tablet 2 Mg PO DAILY Amiodarone Hcl 200 Mg Tablet 1 Tab PO DAILY Renvela (Sevelamer Carbonate) 800 Mg Tablet 800 Mg PO TIDWMEALS Clopidogrel (Clopidogrel Bisulfate) 75 Mg Tablet 75 Mg PO DAILY Latanoprost 2.5 Ml Drops 1 Drop EACHEYE QHS Symbicort 160-4.5 Mcg Inhaler (Budesonide/Formoterol Fumarate) 10.2 Gm Hfa.aer.ad 2 Puff IH BID Glipizide 5 Mg Tablet 2.5 Mg PO DAILY Jacquie-Debbi Tablet (Folic Acid/Vitamin B Comp W-C) 0.8 Mg Tablet 0.8 Mg PO DAILY Atorvastatin Calcium 40 Mg Tablet 1 Tab PO DAILY Allergies Allergies: Coded Allergies: Iodine and Iodide Containing Produc (Verified Allergy, Severe, swells up & itches, 02/13/18) shellfish derived (Verified Allergy, Intermediate, "SEAFOOD", 02/13/18) ROS Review of System 14 point review of systems as reviewed under HPI otherwise negative Physical Exam Physical Exam General Appearance: Awake Alert Oriented x 3 In no Distress Eyes: VIsion Unchanged Conjunctiva Normal EN: No EN Drainage Mucous Memb. moist Neck: no JVD min JVP Supple no Thyromegaly CVS: S1 S2 no murmur No Gallop No Rub no Edema, distal heart sounds Resp: no Rales no Rhonchi no Acc. Muscle use GI: BAS +ve NO Bruit Non Tender Non Distended : no CVA tenderness; no Suprapubic Tenderness SKIN: no Rashes Breast Exam deferred Mu.Sk: Adequate ROM no Muscle Atrophy Heme: Unable to palpate Obvious LAD no palp Splenomegaly NEURO: Good Strength and Tone Cranial Nerves II - XII grossly intact Psych: not Depressed no Active hallucination Vital Signs Vital Signs Date Time Temp Pulse Resp B/P (MAP) Pulse Ox O2 Delivery O2 Flow Rate FiO2 09/04/19 11:34 98 Room Air 09/04/19 10:32 97.8 66 18 122/58 (79) 97.8 09/04/19 02:10 2.0 Assessment & Plan ESRD Dialysis as below F 180 NR 3.5 Hrs 3 K 2.5 Ca 140 Na 35 HC03 Qb 350 + Qd 500+ Heparin Units Uf 0-1 Kgs or to dry weight as tolerated May give 25-50 gms of 25% Albumin if needed to maintain Hemodynamic stability Treatment plan reviewed and discussed with demographer Anemia: Will start Epogen if hemoglobin less than 10. Transfuse with next HD as needed/hemoglobin drops to below 7 HypoTN: Current BP meds reviewed. Some of these will need to be held for the time being. Pneumonia/sepsis may be contributing to the same. Patient does report some weight loss which may have contributed to lowish blood pressure also (since BP meds were not decreased) Bone & Mineral: Follow phosphorus levels and alter binder regimen as needed based on oral intake and trend Elevated LFTs: Defer to primary team to evaluate for possible contribution to hypotension Previous echocardiogram has shown pericardial effusion: This may need to be repeated to rule out worsening of the same. no mention of same on CT Chest. ? Sepsis due to Empyema/ loculated Pl Eff. curently on Abx per ID Discussed Plan of Care and prognosis etc. at length with patient at length Labs Labs Laboratory Tests Test 09/03/19 16:38 09/03/19 17:20 09/03/19 20:34 09/03/19 21:10 White Blood Count 12.2 x10^3/uL (4.0-11.0) Red Blood Count 3.46 x10^6/uL (3.50-5.40) Hemoglobin 10.5 g/dL (12.0-15.5) Hematocrit 32.1 % (36.0-47.0) Mean Corpuscular Volume 93 fL (79-100) Mean Corpuscular Hemoglobin 30 pg (25-35) Mean Corpuscular Hemoglobin Concent 33 g/dL (31-37) Red Cell Distribution Width 23.9 % (11.5-14.5) Platelet Count 217 x10^3/uL (140-400) Neutrophils (%) (Auto) 84 % (31-73) Lymphocytes (%) (Auto) 7 % (24-48) Monocytes (%) (Auto) 7 % (0-9) Eosinophils (%) (Auto) 1 % (0-3) Basophils (%) (Auto) 1 % (0-3) Neutrophils # (Auto) 10.3 x10^3/uL (1.8-7.7) Lymphocytes # (Auto) 0.9 x10^3/uL (1.0-4.8) Monocytes # (Auto) 0.9 x10^3/uL (0.0-1.1) Eosinophils # (Auto) 0.1 x10^3/uL (0.0-0.7) Basophils # (Auto) 0.1 x10^3/uL (0.0-0.2) Platelet Estimate Adequate (ADEQUATE) Polychromasia Slight Hypochromasia Slight Poikilocytosis Slight Anisocytosis Mod Spherocytes Occ Target Cells Few Tear Drop Cells Occ Ovalocytes Mod Helmet Cells Occ [place] Cells Present Crenated Cell Schistocytes Occ Lactic Acid Level 3.5 mmol/L (0.4-2.0) 2.7 mmol/L (0.4-2.0) Sodium Level 140 mmol/L (136-145) Potassium Level 4.0 mmol/L (3.5-5.1) Chloride Level 101 mmol/L (98-107) Carbon Dioxide Level 25 mmol/L (21-32) Anion Gap 14 (6-14) Blood Urea Nitrogen 42 mg/dL (7-20) Creatinine 9.5 mg/dL (0.6-1.0) Estimated GFR (Cockcroft-Gault) 5.0 Glucose Level 161 mg/dL (70-99) Calcium Level 8.4 mg/dL (8.5-10.1) Total Bilirubin 1.7 mg/dL (0.2-1.0) Direct Bilirubin 1.4 mg/dL (0.0-0.2) Aspartate Amino Transf (AST/SGOT) 143 U/L (15-37) Alanine Aminotransferase (ALT/SGPT) 117 U/L (14-59) Alkaline Phosphatase 149 U/L (46-116) Troponin I Quantitative 0.272 ng/mL (0.000-0.055) 0.285 ng/mL (0.000-0.055) SN-Ayv-R-Type Natriuretic Peptide > 15414 pg/mL (0-124) Total Protein 5.9 g/dL (6.4-8.2) Albumin 2.2 g/dL (3.4-5.0) Lipase 171 U/L (73-393) Glucose (Fingerstick) 95 mg/dL (70-99) Test 09/04/19 01:10 09/04/19 02:00 09/04/19 07:32 09/04/19 11:10 Troponin I Quantitative 0.225 ng/mL (0.000-0.055) White Blood Count 10.6 x10^3/uL (4.0-11.0) Red Blood Count 3.46 x10^6/uL (3.50-5.40) Hemoglobin 10.6 g/dL (12.0-15.5) Hematocrit 33.5 % (36.0-47.0) Mean Corpuscular Volume 97 fL (79-100) Mean Corpuscular Hemoglobin 31 pg (25-35) Mean Corpuscular Hemoglobin Concent 32 g/dL (31-37) Red Cell Distribution Width 24.6 % (11.5-14.5) Platelet Count 147 x10^3/uL (140-400) Neutrophils (%) (Auto) 82 % (31-73) Lymphocytes (%) (Auto) 8 % (24-48) Monocytes (%) (Auto) 8 % (0-9) Eosinophils (%) (Auto) 1 % (0-3) Basophils (%) (Auto) 1 % (0-3) Neutrophils # (Auto) 8.6 x10^3/uL (1.8-7.7) Lymphocytes # (Auto) 0.9 x10^3/uL (1.0-4.8) Monocytes # (Auto) 0.9 x10^3/uL (0.0-1.1) Eosinophils # (Auto) 0.1 x10^3/uL (0.0-0.7) Basophils # (Auto) 0.1 x10^3/uL (0.0-0.2) Sodium Level 140 mmol/L (136-145) Potassium Level 4.6 mmol/L (3.5-5.1) Chloride Level 102 mmol/L (98-107) Carbon Dioxide Level 23 mmol/L (21-32) Anion Gap 15 (6-14) Blood Urea Nitrogen 43 mg/dL (7-20) Creatinine 9.8 mg/dL (0.6-1.0) Estimated GFR (Cockcroft-Gault) 4.8 Glucose Level 69 mg/dL (70-99) Calcium Level 9.1 mg/dL (8.5-10.1) Total Bilirubin 1.7 mg/dL (0.2-1.0) Direct Bilirubin 1.3 mg/dL (0.0-0.2) Aspartate Amino Transf (AST/SGOT) 149 U/L (15-37) Alanine Aminotransferase (ALT/SGPT) 123 U/L (14-59) Alkaline Phosphatase 145 U/L (46-116) Total Protein 6.5 g/dL (6.4-8.2) Albumin 2.1 g/dL (3.4-5.0) Glucose (Fingerstick) 54 mg/dL (70-99) 71 mg/dL (70-99) Laboratory Tests Test 09/03/19 16:38 09/03/19 17:20 09/03/19 20:34 09/03/19 21:10 White Blood Count 12.2 x10^3/uL (4.0-11.0) Red Blood Count 3.46 x10^6/uL (3.50-5.40) Hemoglobin 10.5 g/dL (12.0-15.5) Hematocrit 32.1 % (36.0-47.0) Mean Corpuscular Volume 93 fL (79-100) Mean Corpuscular Hemoglobin 30 pg (25-35) Mean Corpuscular Hemoglobin Concent 33 g/dL (31-37) Red Cell Distribution Width 23.9 % (11.5-14.5) Platelet Count 217 x10^3/uL (140-400) Neutrophils (%) (Auto) 84 % (31-73) Lymphocytes (%) (Auto) 7 % (24-48) Monocytes (%) (Auto) 7 % (0-9) Eosinophils (%) (Auto) 1 % (0-3) Basophils (%) (Auto) 1 % (0-3) Neutrophils # (Auto) 10.3 x10^3/uL (1.8-7.7) Lymphocytes # (Auto) 0.9 x10^3/uL (1.0-4.8) Monocytes # (Auto) 0.9 x10^3/uL (0.0-1.1) Eosinophils # (Auto) 0.1 x10^3/uL (0.0-0.7) Basophils # (Auto) 0.1 x10^3/uL (0.0-0.2) Platelet Estimate Adequate (ADEQUATE) Polychromasia Slight Hypochromasia Slight Poikilocytosis Slight Anisocytosis Mod Spherocytes Occ Target Cells Few Tear Drop Cells Occ Ovalocytes Mod Helmet Cells Occ [place] Cells Present Crenated Cell Schistocytes Occ Lactic Acid Level 3.5 mmol/L (0.4-2.0) 2.7 mmol/L (0.4-2.0) Sodium Level 140 mmol/L (136-145) Potassium Level 4.0 mmol/L (3.5-5.1) Chloride Level 101 mmol/L (98-107) Carbon Dioxide Level 25 mmol/L (21-32) Anion Gap 14 (6-14) Blood Urea Nitrogen 42 mg/dL (7-20) Creatinine 9.5 mg/dL (0.6-1.0) Estimated GFR (Cockcroft-Gault) 5.0 Glucose Level 161 mg/dL (70-99) Calcium Level 8.4 mg/dL (8.5-10.1) Total Bilirubin 1.7 mg/dL (0.2-1.0) Direct Bilirubin 1.4 mg/dL (0.0-0.2) Aspartate Amino Transf (AST/SGOT) 143 U/L (15-37) Alanine Aminotransferase (ALT/SGPT) 117 U/L (14-59) Alkaline Phosphatase 149 U/L (46-116) Troponin I Quantitative 0.272 ng/mL (0.000-0.055) 0.285 ng/mL (0.000-0.055) BO-Bnn-D-Type Natriuretic Peptide > 95207 pg/mL (0-124) Total Protein 5.9 g/dL (6.4-8.2) Albumin 2.2 g/dL (3.4-5.0) Lipase 171 U/L (73-393) Glucose (Fingerstick) 95 mg/dL (70-99) Test 09/04/19 01:10 09/04/19 02:00 09/04/19 07:32 09/04/19 11:10 Troponin I Quantitative 0.225 ng/mL (0.000-0.055) White Blood Count 10.6 x10^3/uL (4.0-11.0) Red Blood Count 3.46 x10^6/uL (3.50-5.40) Hemoglobin 10.6 g/dL (12.0-15.5) Hematocrit 33.5 % (36.0-47.0) Mean Corpuscular Volume 97 fL (79-100) Mean Corpuscular Hemoglobin 31 pg (25-35) Mean Corpuscular Hemoglobin Concent 32 g/dL (31-37) Red Cell Distribution Width 24.6 % (11.5-14.5) Platelet Count 147 x10^3/uL (140-400) Neutrophils (%) (Auto) 82 % (31-73) Lymphocytes (%) (Auto) 8 % (24-48) Monocytes (%) (Auto) 8 % (0-9) Eosinophils (%) (Auto) 1 % (0-3) Basophils (%) (Auto) 1 % (0-3) Neutrophils # (Auto) 8.6 x10^3/uL (1.8-7.7) Lymphocytes # (Auto) 0.9 x10^3/uL (1.0-4.8) Monocytes # (Auto) 0.9 x10^3/uL (0.0-1.1) Eosinophils # (Auto) 0.1 x10^3/uL (0.0-0.7) Basophils # (Auto) 0.1 x10^3/uL (0.0-0.2) Sodium Level 140 mmol/L (136-145) Potassium Level 4.6 mmol/L (3.5-5.1) Chloride Level 102 mmol/L (98-107) Carbon Dioxide Level 23 mmol/L (21-32) Anion Gap 15 (6-14) Blood Urea Nitrogen 43 mg/dL (7-20) Creatinine 9.8 mg/dL (0.6-1.0) Estimated GFR (Cockcroft-Gault) 4.8 Glucose Level 69 mg/dL (70-99) Calcium Level 9.1 mg/dL (8.5-10.1) Total Bilirubin 1.7 mg/dL (0.2-1.0) Direct Bilirubin 1.3 mg/dL (0.0-0.2) Aspartate Amino Transf (AST/SGOT) 149 U/L (15-37) Alanine Aminotransferase (ALT/SGPT) 123 U/L (14-59) Alkaline Phosphatase 145 U/L (46-116) Total Protein 6.5 g/dL (6.4-8.2) Albumin 2.1 g/dL (3.4-5.0) Glucose (Fingerstick) 54 mg/dL (70-99) 71 mg/dL (70-99) Review All relevant outside records, renal labs, imaging studies, telemetry/EKG's were reviewed. Images Images CT chest from this hospitalization IMPRESSION: There is a large partly loculated right-sided pleural effusion with some adjacent compressive atelectasis. There is an enlarged left thyroid lobe. Echocardiogram from 10/14/2018: Septal motion consistent with conduction abnormality. There is global hypokinesis. The aortic valve is not well visualized. TAVR valve in place. Doppler and Color Flow revealed trace tricuspid regurgitation. The PA pressure was estimated at 39 mmHg. There is a small circumferential pericardial effusion. KAYODE ZAMORA MD Sep 04, 2019 13:24
[2019-09-04] MEDS ORDERED: ONDANSETRON PF 4 MG/2 ML VIAL. IV PRN (13:45)
[2019-09-04] MEDS ORDERED: DEXTROSE 50% 25 GM / 50ML DISP.SYRIN. IV PRN (13:45)
[2019-09-04 14:08] LABS: PROTHROMBIN TIME PATIENT 116.7 SEC (11.7-14.0)
--- NOTE | 2019-09-04 16:28 | NUR ---
Patient transferred to room 665. Report given to EZRA Mancia.
[2019-09-04] MEDS: INSULIN LISPRO 300 UNITS/3 ML VIAL. SQ SCH ×2 (16:30→21:00)
[2019-09-04] MEDS: METOPROLOL SUCC 24HR ER 25 MG TAB.ER.24H. PO SCH (16:40)
[2019-09-04] MEDS: AMIODARONE HCL 200 MG TABLET. PO SCH (16:40)
[2019-09-04] MEDS: LINAGLIPTIN 5 MG TABLET PO SCH (16:40)
[2019-09-04] MEDS: LIDOCAINE (700MG/PATCH) PATCH. TP SCH (16:40)
[2019-09-04] MEDS: CLOPIDOGREL BISULFATE 75 MG TABLET PO SCH (16:40)
[2019-09-04] MEDS: FOLIC/VIT B COMP W-C (RENAL) TABLET. PO SCH (16:40)
[2019-09-04] MEDS: SEVELAMER CARBONATE 800 MG TABLET. PO SCH (17:00)
[2019-09-04 17:35] VITALS: BP 147/63
[2019-09-04 19:51] VITALS: BP 97/57
[2019-09-04] MEDS: ATORVASTATIN CALCIUM 40 MG TABLET. PO SCH (21:50)
[2019-09-04] MEDS: MONTELUKAST SODIUM 10 MG TABLET. PO SCH (21:50)
[2019-09-04] MEDS: LATANOPROST 0.005% OPHTH SOLUTION 2.5ML BOTTLE. OU SCH (21:51)
[2019-09-04 23:47] VITALS: BP 89/57
--- NOTE | 2019-09-05 00:04 | PDOC2 ---
CARDIOLOGY CONSULT NOTE CHIEF COMPLAINT: Dyspnea HPI: 64 y.o woman presenting for dyspnea and chest pain. Has some hypotension. Currently being evaluated for COVID. Otherwise, no specific issues. cardiology asked to evaluate for elevated troponin. PMHX: . NSTEMI: initial trop 0.2. EKG SR with LBBB no acute changes by comparison 2. Accelerated HTN: SBP initial at 245 and now normalized after morphine 3. CAD: known [employer] to LAD with collateralization from RCA. 09/2018 PCI/stent to D1 at 4. Chronic systolic CHF: clinically no acute exacerbation 5. Chronic LBBB 6. S/P TAVR: 06/2018 7. ICM: NYHA 2-3 last known EF at 35% 8. Hyperlipidemia 9. DM2 10. ESRD on HD 11. Iodine allergy SOCHX: No alcohol, tob or illicits. FAMHX: NC CURRENT MEDS: Current Medications Medications (Trade) Dose Ordered Sig/Chinmay Route PRN Reason Start Time Stop Time Status Last Admin Dose Admin Piperacillin Sod/ Tazobactam Sod 2.25 gm/Sodium Chloride 50 ml @ 100 mls/hr Q8HRS IV 09/04/19 06:00 09/04/19 21:50 Albuterol/ Ipratropium (Duoneb) 3 ml RTQID NEB 09/04/19 12:00 09/04/19 20:11 Atorvastatin Calcium (Lipitor) 40 mg QHS PO 09/04/19 21:00 09/04/19 21:50 Latanoprost (Xalatan) 1 drop QHS OU 09/04/19 21:00 09/04/19 21:51 Montelukast Sodium (Singulair) 10 mg HS PO 09/04/19 21:00 09/04/19 21:50 ALLERGIES: Allergies Coded Allergies Type Severity Reaction Last Updated Verified Iodine and Iodide Containing Produc Allergy Severe swells up & itches 02/13/18 Yes shellfish derived Allergy Intermediate "SEAFOOD" 02/13/18 Yes ROS: Negative per chart review PHYSICAL EXAM: Vital Signs/I&O: Vital Signs Date Time Temp Pulse Resp B/P (MAP) Pulse Ox O2 Delivery O2 Flow Rate FiO2 09/04/19 20:17 99 Room Air 09/04/19 19:51 97.9 76 20 97/57 (70) 2.0 97.9 I & O 09/03/19 09/03/19 09/04/19 15:00 23:00 07:00 Intake Total 750 ml 200 ml Output Total 0 ml Balance 750 ml 200 ml Physical Exam: GEN.: No apparent distress. Alert and oriented. HEENT: Head is normocephalic, atraumatic NECK: Supple. LUNGS: Clear to auscultation. HEART: RRR, S1, S2 present. Peripheral pulses intact ABDOMEN: Soft, nontender. Positive bowel sounds. EXTREMITIES: Without any cyanosis. NEUROLOGIC: Normal speech, normal tone PSYCHIATRIC: Normal affect, normal mood. SKIN: No ulcerations DIAGNOSTIC TESTING: Trop minimally elevated EKG unremarkable. Lab Laboratory Tests Test 09/04/19 02:00 09/04/19 07:32 09/04/19 11:10 09/04/19 13:33 White Blood Count 10.6 x10^3/uL (4.0-11.0) Red Blood Count 3.46 x10^6/uL (3.50-5.40) L Hemoglobin 10.6 g/dL (12.0-15.5) L Hematocrit 33.5 % (36.0-47.0) L Mean Corpuscular Volume 97 fL (79-100) Mean Corpuscular Hemoglobin 31 pg (25-35) Mean Corpuscular Hemoglobin Concent 32 g/dL (31-37) Red Cell Distribution Width 24.6 % (11.5-14.5) H Platelet Count 147 x10^3/uL (140-400) Neutrophils (%) (Auto) 82 % (31-73) H Lymphocytes (%) (Auto) 8 % (24-48) L Monocytes (%) (Auto) 8 % (0-9) Eosinophils (%) (Auto) 1 % (0-3) Basophils (%) (Auto) 1 % (0-3) Neutrophils # (Auto) 8.6 x10^3/uL (1.8-7.7) H Lymphocytes # (Auto) 0.9 x10^3/uL (1.0-4.8) L Monocytes # (Auto) 0.9 x10^3/uL (0.0-1.1) Eosinophils # (Auto) 0.1 x10^3/uL (0.0-0.7) Basophils # (Auto) 0.1 x10^3/uL (0.0-0.2) Sodium Level 140 mmol/L (136-145) Potassium Level 4.6 mmol/L (3.5-5.1) Chloride Level 102 mmol/L (98-107) Carbon Dioxide Level 23 mmol/L (21-32) Anion Gap 15 (6-14) H Blood Urea Nitrogen 43 mg/dL (7-20) H Creatinine 9.8 mg/dL (0.6-1.0) H Estimated GFR (Cockcroft-Gault) 4.8 Glucose Level 69 mg/dL (70-99) L Calcium Level 9.1 mg/dL (8.5-10.1) Total Bilirubin 1.7 mg/dL (0.2-1.0) H Direct Bilirubin 1.3 mg/dL (0.0-0.2) H Aspartate Amino Transf (AST/SGOT) 149 U/L (15-37) H Alkaline Phosphatase 145 U/L (46-116) H Total Protein 6.5 g/dL (6.4-8.2) Albumin 2.1 g/dL (3.4-5.0) L Glucose (Fingerstick) 54 mg/dL (70-99) L 71 mg/dL (70-99) Prothrombin Time 116.7 SEC (11.7-14.0) H Prothromb Time International Ratio > 15.0 (0.8-1.1) *H Test 09/04/19 18:26 09/04/19 21:58 Glucose (Fingerstick) 59 mg/dL (70-99) L 100 mg/dL (70-99) H Laboratory Tests 09/04/19 02:00 ASSESSMENT: 1. Elevated troponin 2. ESRD 3. PUI PLAN: 1. No specific CV issues. Supportive care. Await COVID testing. TALHA RON MD Sep 05, 2019 00:04
[2019-09-05 02:31] VITALS: BP 100/51
[2019-09-05 04:45] LABS: BASO # 0.1 x10^3/uL (0.0-0.2); BASO % 1 % (0-3); EOS # 0.1 x10^3/uL (0.0-0.7); EOS % 2 % (0-3); LYMPH # 0.9 x10^3/uL (1.0-4.8); LYMPH % 9 % (24-48); MEAN CORPUSCULAR HEMOGLOBIN 30 pg (25-35); MEAN CORPUSCULAR HGB CONC 32 g/dL (31-37); MEAN CORPUSCULAR VOLUME 93 fL (79-100); MONO # 1.2 x10^3/uL (0.0-1.1); MONO % 12 % (0-9); NEUT # 7.8 x10^3/uL (1.8-7.7); NEUT % 77 % (31-73); PLATELET COUNT 130 x10^3/uL (140-400); RED BLOOD COUNT 3.34 x10^6/uL (3.50-5.40); RED CELL DISTRIBUTION WIDTH 23.9 % (11.5-14.5); WHITE BLOOD COUNT 10.1 x10^3/uL (4.0-11.0)
[2019-09-05 05:06] LABS: ALBUMIN 2.1 g/dL (3.4-5.0); ALBUMIN/GLOBULIN RATIO 0.5 (1.0-1.7); CALCIUM 8.6 mg/dL (8.5-10.1); CREATININE 8.2 mg/dL (0.6-1.0); TOTAL BILIRUBIN 2.1 mg/dL (0.2-1.0); TOTAL PROTEIN 6.5 g/dL (6.4-8.2)
[2019-09-05] MEDS: PIPERACILLIN/TAZOBACTAM 2.25 GM in IV NORMAL SALINE 50ML 50 ML IV SCH ×4 (05:29→22:00)
[2019-09-05] MEDS ORDERED: VANCOMYCIN RANDOM LEVEL. MC ONE (06:00)
--- NOTE | 2019-09-05 06:32 | NUR ---
Received critical result, INR-12.5, from [facility]. Message given to Jaja MUNGUIA.
[2019-09-05 07:00] VITALS: BP 105/55
[2019-09-05] MEDS: INSULIN LISPRO 300 UNITS/3 ML VIAL. SQ SCH ×4 (07:30→21:00)
[2019-09-05] MEDS: LINAGLIPTIN 5 MG TABLET PO SCH (08:24)
[2019-09-05] MEDS: FOLIC/VIT B COMP W-C (RENAL) TABLET. PO SCH (08:24)
[2019-09-05] MEDS: SEVELAMER CARBONATE 800 MG TABLET. PO SCH ×3 (08:24→17:46)
--- NOTE | 2019-09-05 08:36 | PDOC ---
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 She is now a PUI OBJECTIVE Vital Signs Vital Signs Date Time Temp Pulse Resp B/P (MAP) Pulse Ox O2 Delivery O2 Flow Rate FiO2 09/05/19 07:00 97.9 85 17 105/55 (72) 99 Nasal Cannula 2.0 97.9 I & 0 Intake and Output 09/05/19 07:00 Intake Total 590 ml Balance 590 ml Intake Oral 590 ml # Bowel Movements 2 PHYSICAL EXAM Physical Exam Exam limited due to COVID-19 isolation precautions. Discussed with nurse Awake alert in no apparent distress DIAGNOSIS/ASSESSMENT Assessment & Plan ESRD: Current E-lyte status does not necessitate emergent need for dialysis. Will re-evaluate for dialysis in the am and continue on MWF schedule. ANEMIA; start Aranap as ordered, Transfuse with next HD as needed HypoTN: Current BPs remain marginal as reviewed on current blood pressure meds (only metoprolol per MAR). Defer to cardiology for further work-up and evaluation of hypotension and potential discontinuation of metoprolol BONE & MINERAL: Follow phosphorus levels and alter binder regimen as needed based on oral intake Discussed Plan of Care with nurse COMMENT/RELEVANT DATA Meds Current Medications Medications (Trade) Dose Ordered Sig/Chinmay Start Time Stop Time Status Last Admin Dose Admin Acetaminophen/ Hydrocodone Bitart (Lortab 5/325) 1 tab PRN Q4HRS PRN 09/03/19 20:30 09/04/19 15:02 1 TAB Albumin Human 200 ml @ 200 mls/hr 1X PRN PRN 09/04/19 09:15 09/04/19 15:14 DC Albuterol/ Ipratropium (Duoneb) 3 ml RTQID 09/04/19 12:00 09/04/19 20:11 3 ML Amiodarone HCl (Cordarone) 200 mg DAILY 09/04/19 13:00 Atorvastatin Calcium (Lipitor) 40 mg QHS 09/04/19 21:00 09/04/19 21:50 40 MG Clopidogrel Bisulfate (Plavix) 75 mg DAILY 09/04/19 13:30 Dextrose (Dextrose 50%-Water Syringe) 12.5 gm PRN Q15MIN PRN 09/04/19 13:45 Diphenhydramine HCl (Benadryl) 25 mg 1X PRN PRN 09/04/19 09:15 09/05/19 09:14 Info (PHARMACY MONITORING -- do not chart) 1 each PRN DAILY PRN 09/04/19 09:15 UNV Insulin Human Lispro (HumaLOG) 0-5 UNITS TIDACHC 09/04/19 16:30 Latanoprost (Xalatan) 1 drop QHS 09/04/19 21:00 09/04/19 21:51 1 DROP Lidocaine (Lidoderm) 1 patch DAILY 09/04/19 13:30 Linagliptin (Tradjenta) 5 mg DAILY 09/04/19 14:00 09/05/19 08:24 5 MG Metoprolol Succinate (Toprol Xl) 25 mg DAILY 09/04/19 13:30 Montelukast Sodium (Singulair) 10 mg HS 09/04/19 21:00 09/04/19 21:50 10 MG Nitroglycerin (Nitrostat) 0.4 mg PRN Q5MIN PRN 09/04/19 13:15 Ondansetron HCl (Zofran) 4 mg PRN Q4HRS PRN 09/04/19 13:45 Pantoprazole Sodium (Protonix) 40 mg 1X 09/04/19 10:45 Piperacillin Sod/ Tazobactam Sod (Zosyn Per Pharmacy) 1 each PRN DAILY PRN 09/03/19 17:00 Piperacillin Sod/ Tazobactam Sod 2.25 gm/Sodium Chloride 50 ml @ 100 mls/hr Q8HRS 09/04/19 06:00 09/05/19 05:29 100 MLS/HR Sevelamer Carbonate (Renvela) 800 mg TIDWMEALS 09/04/19 17:00 09/05/19 08:24 800 MG Sodium Chloride 1,000 ml @ 400 mls/hr Q2H30M PRN 09/04/19 09:15 09/04/19 21:14 DC Vancomycin HCl (Vanco Per Pharmacy) 1 each PRN DAILY PRN 09/03/19 17:00 09/03/19 19:09 1 EACH Vancomycin HCl (Vancomycin Random Level) 1 each 1X ONCE 09/05/19 06:00 09/05/19 06:01 DC Vancomycin HCl 2 gm/Sodium Chloride 500 ml @ 250 mls/hr ONCE ONCE 09/03/19 17:30 09/03/19 19:29 DC 09/03/19 18:04 250 MLS/HR Vitamin B Complex/ Vitamin C (Jacquie-Debbi) 1 tab DAILY 09/04/19 13:30 09/05/19 08:24 1 TAB Warfarin Sodium (Coumadin Per Physician) 1 each PRN DAILY PRN 09/04/19 13:30 Cancel Warfarin Sodium (Coumadin) 2 mg DAILY 09/05/19 09:00 09/04/19 14:53 DC Lab Laboratory Tests Test 09/04/19 11:10 09/04/19 13:33 09/04/19 18:26 09/04/19 21:58 Glucose (Fingerstick) 71 mg/dL (70-99) 59 mg/dL (70-99) 100 mg/dL (70-99) Prothrombin Time 116.7 SEC (11.7-14.0) Prothromb Time International Ratio > 15.0 (0.8-1.1) Test 09/05/19 04:15 09/05/19 07:32 White Blood Count 10.1 x10^3/uL (4.0-11.0) Red Blood Count 3.34 x10^6/uL (3.50-5.40) Hemoglobin 10.0 g/dL (12.0-15.5) Hematocrit 31.0 % (36.0-47.0) Mean Corpuscular Volume 93 fL (79-100) Mean Corpuscular Hemoglobin 30 pg (25-35) Mean Corpuscular Hemoglobin Concent 32 g/dL (31-37) Red Cell Distribution Width 23.9 % (11.5-14.5) Platelet Count 130 x10^3/uL (140-400) Neutrophils (%) (Auto) 77 % (31-73) Lymphocytes (%) (Auto) 9 % (24-48) Monocytes (%) (Auto) 12 % (0-9) Eosinophils (%) (Auto) 2 % (0-3) Basophils (%) (Auto) 1 % (0-3) Neutrophils # (Auto) 7.8 x10^3/uL (1.8-7.7) Lymphocytes # (Auto) 0.9 x10^3/uL (1.0-4.8) Monocytes # (Auto) 1.2 x10^3/uL (0.0-1.1) Eosinophils # (Auto) 0.1 x10^3/uL (0.0-0.7) Basophils # (Auto) 0.1 x10^3/uL (0.0-0.2) Prothrombin Time 100.0 SEC (11.7-14.0) Prothromb Time International Ratio 12.5 (0.8-1.1) Sodium Level 139 mmol/L (136-145) Potassium Level 4.0 mmol/L (3.5-5.1) Chloride Level 101 mmol/L (98-107) Carbon Dioxide Level 26 mmol/L (21-32) Anion Gap 12 (6-14) Blood Urea Nitrogen 35 mg/dL (7-20) Creatinine 8.2 mg/dL (0.6-1.0) Estimated GFR (Cockcroft-Gault) 6.0 BUN/Creatinine Ratio 4 (6-20) Glucose Level 71 mg/dL (70-99) Calcium Level 8.6 mg/dL (8.5-10.1) Total Bilirubin 2.1 mg/dL (0.2-1.0) Aspartate Amino Transf (AST/SGOT) 207 U/L (15-37) Alanine Aminotransferase (ALT/SGPT) 160 U/L (14-59) Alkaline Phosphatase 148 U/L (46-116) Total Protein 6.5 g/dL (6.4-8.2) Albumin 2.1 g/dL (3.4-5.0) Albumin/Globulin Ratio 0.5 (1.0-1.7) Random Vancomycin Level 13.3 mcg/mL Glucose (Fingerstick) 59 mg/dL (70-99) Results All relevant outside records, renal labs, imaging studies, telemetry/EKG's were reviewed. Justicifation of Admission Dx: Justifications for Admission: Justification of Admission Dx: Yes Chronic Renal Failure: Renail Failure KAYODE ZAMORA MD Sep 05, 2019 08:35
[2019-09-05] MEDS: AMIODARONE HCL 200 MG TABLET. PO SCH (08:38)
[2019-09-05] MEDS: METOPROLOL SUCC 24HR ER 25 MG TAB.ER.24H. PO SCH (08:38)
[2019-09-05] MEDS: LIDOCAINE (700MG/PATCH) PATCH. TP SCH (08:39)
[2019-09-05] MEDS ORDERED: WARFARIN 2 MG TABLET. PO SCH (09:00)
[2019-09-05] MEDS: CLOPIDOGREL BISULFATE 75 MG TABLET PO SCH (09:00)
[2019-09-05] MEDS ORDERED: ALBUTEROL SULFATE 2.5 MG/3 ML NEBU. NEB PRN (09:00)
[2019-09-05 10:57] VITALS: BP 128/26
--- NOTE | 2019-09-05 12:21 | PDOC ---
Infectious Disease Note Subjective Subjective Some aches and cough + loose stools 3L O2 No fevers Denies SOA/CP/N/V/abd cramps ROS ROS as mentioned above Vital Sign Vital Signs Vital Signs Date Time Temp Pulse Resp B/P (MAP) Pulse Ox O2 Delivery O2 Flow Rate FiO2 09/05/19 10:57 97.9 85 18 128/26 (60) 92 Nasal Cannula 2.0 97.9 Physical Exam PHYSICAL EXAM GENERAL: Propped up in bed, alert in NAD HEENT: Pupils equal and reactive. Normal conjunctivae. Oral cavity, pharynx clear. NECK: Supple. Good range of motion. LUNGS: Clear to auscultation bilaterally. HEART: S1, S2. ABDOMEN: Obese, soft, nontender with no guarding. EXTREMITIES: No clubbing, cyanosis or gross edema. RUE-AV fistula. SKIN: Warm to touch without signs of rash. She has a chronic scar in her right lower extremity. NEUROLOGIC: Alert, nonfocal. PIV ok Labs Lab Laboratory Tests Test 09/04/19 13:33 09/04/19 18:26 09/04/19 21:58 09/05/19 04:15 Prothrombin Time 116.7 SEC (11.7-14.0) 100.0 SEC (11.7-14.0) Prothromb Time International Ratio > 15.0 (0.8-1.1) 12.5 (0.8-1.1) Glucose (Fingerstick) 59 mg/dL (70-99) 100 mg/dL (70-99) White Blood Count 10.1 x10^3/uL (4.0-11.0) Red Blood Count 3.34 x10^6/uL (3.50-5.40) Hemoglobin 10.0 g/dL (12.0-15.5) Hematocrit 31.0 % (36.0-47.0) Mean Corpuscular Volume 93 fL (79-100) Mean Corpuscular Hemoglobin 30 pg (25-35) Mean Corpuscular Hemoglobin Concent 32 g/dL (31-37) Red Cell Distribution Width 23.9 % (11.5-14.5) Platelet Count 130 x10^3/uL (140-400) Neutrophils (%) (Auto) 77 % (31-73) Lymphocytes (%) (Auto) 9 % (24-48) Monocytes (%) (Auto) 12 % (0-9) Eosinophils (%) (Auto) 2 % (0-3) Basophils (%) (Auto) 1 % (0-3) Neutrophils # (Auto) 7.8 x10^3/uL (1.8-7.7) Lymphocytes # (Auto) 0.9 x10^3/uL (1.0-4.8) Monocytes # (Auto) 1.2 x10^3/uL (0.0-1.1) Eosinophils # (Auto) 0.1 x10^3/uL (0.0-0.7) Basophils # (Auto) 0.1 x10^3/uL (0.0-0.2) Sodium Level 139 mmol/L (136-145) Potassium Level 4.0 mmol/L (3.5-5.1) Chloride Level 101 mmol/L (98-107) Carbon Dioxide Level 26 mmol/L (21-32) Anion Gap 12 (6-14) Blood Urea Nitrogen 35 mg/dL (7-20) Creatinine 8.2 mg/dL (0.6-1.0) Estimated GFR (Cockcroft-Gault) 6.0 BUN/Creatinine Ratio 4 (6-20) Glucose Level 71 mg/dL (70-99) Calcium Level 8.6 mg/dL (8.5-10.1) Total Bilirubin 2.1 mg/dL (0.2-1.0) Aspartate Amino Transf (AST/SGOT) 207 U/L (15-37) Alanine Aminotransferase (ALT/SGPT) 160 U/L (14-59) Alkaline Phosphatase 148 U/L (46-116) Total Protein 6.5 g/dL (6.4-8.2) Albumin 2.1 g/dL (3.4-5.0) Albumin/Globulin Ratio 0.5 (1.0-1.7) Random Vancomycin Level 13.3 mcg/mL Test 09/05/19 07:32 09/05/19 11:38 Glucose (Fingerstick) 59 mg/dL (70-99) 77 mg/dL (70-99) Objective Assessment Leukocytosis - better Chronic kidney disease, on hemodialysis. Questionable loculated right pleural effusion. Hypertension. Diabetes. Transaminitis, questionable secondary to congestion. Loose stools Plan Plan of Care Cont Vanc and Zosyn COVID pending Monitor labs Maintain aspiration precautions Feeling better. Awaiting Thoracentesis Attending Co-Sign Attending Co-Sign The patient was seen and interviewed as well as examined at the bedside. The chart was reviewed. The case was discussed. Agree with the plan of care. BRITT SALAZAR APRN Sep 05, 2019 12:21 KELSIE RAO MD Sep 05, 2019 15:34
[2019-09-05] MEDS: VANCOMYCIN PER PHARMACY MC PRN ×2 (12:44→12:49)
--- NOTE | 2019-09-05 12:46 | PDOC ---
PULMONARY PROGRESS NOTES Subjective on 02 sob better, has cough, no hemoptysis Vitals Vital Signs Date Time Temp Pulse Resp B/P (MAP) Pulse Ox O2 Delivery O2 Flow Rate FiO2 09/05/19 10:57 97.9 85 18 128/26 (60) 92 Nasal Cannula 2.0 97.9 Comments on 02 no distress alert no paradoxical abd motion no audible wheezing no rash no edema ekg nsr Lungs: Other Cardiovascular: S1, S2 Labs Laboratory Tests Test 09/03/19 16:38 09/03/19 17:20 09/03/19 20:34 09/03/19 21:10 White Blood Count 12.2 x10^3/uL (4.0-11.0) Red Blood Count 3.46 x10^6/uL (3.50-5.40) Hemoglobin 10.5 g/dL (12.0-15.5) Hematocrit 32.1 % (36.0-47.0) Mean Corpuscular Volume 93 fL (79-100) Mean Corpuscular Hemoglobin 30 pg (25-35) Mean Corpuscular Hemoglobin Concent 33 g/dL (31-37) Red Cell Distribution Width 23.9 % (11.5-14.5) Platelet Count 217 x10^3/uL (140-400) Neutrophils (%) (Auto) 84 % (31-73) Lymphocytes (%) (Auto) 7 % (24-48) Monocytes (%) (Auto) 7 % (0-9) Eosinophils (%) (Auto) 1 % (0-3) Basophils (%) (Auto) 1 % (0-3) Neutrophils # (Auto) 10.3 x10^3/uL (1.8-7.7) Lymphocytes # (Auto) 0.9 x10^3/uL (1.0-4.8) Monocytes # (Auto) 0.9 x10^3/uL (0.0-1.1) Eosinophils # (Auto) 0.1 x10^3/uL (0.0-0.7) Basophils # (Auto) 0.1 x10^3/uL (0.0-0.2) Platelet Estimate Adequate (ADEQUATE) Polychromasia Slight Hypochromasia Slight Poikilocytosis Slight Anisocytosis Mod Spherocytes Occ Target Cells Few Tear Drop Cells Occ Ovalocytes Mod Helmet Cells Occ [place] Cells Present Crenated Cell Schistocytes Occ Lactic Acid Level 3.5 mmol/L (0.4-2.0) 2.7 mmol/L (0.4-2.0) Sodium Level 140 mmol/L (136-145) Potassium Level 4.0 mmol/L (3.5-5.1) Chloride Level 101 mmol/L (98-107) Carbon Dioxide Level 25 mmol/L (21-32) Anion Gap 14 (6-14) Blood Urea Nitrogen 42 mg/dL (7-20) Creatinine 9.5 mg/dL (0.6-1.0) Estimated GFR (Cockcroft-Gault) 5.0 Glucose Level 161 mg/dL (70-99) Calcium Level 8.4 mg/dL (8.5-10.1) Total Bilirubin 1.7 mg/dL (0.2-1.0) Direct Bilirubin 1.4 mg/dL (0.0-0.2) Aspartate Amino Transf (AST/SGOT) 143 U/L (15-37) Alanine Aminotransferase (ALT/SGPT) 117 U/L (14-59) Alkaline Phosphatase 149 U/L (46-116) Troponin I Quantitative 0.272 ng/mL (0.000-0.055) 0.285 ng/mL (0.000-0.055) YF-Otf-R-Type Natriuretic Peptide > 75188 pg/mL (0-124) Total Protein 5.9 g/dL (6.4-8.2) Albumin 2.2 g/dL (3.4-5.0) Lipase 171 U/L (73-393) Glucose (Fingerstick) 95 mg/dL (70-99) Test 09/04/19 01:10 09/04/19 02:00 09/04/19 07:32 09/04/19 11:10 Troponin I Quantitative 0.225 ng/mL (0.000-0.055) White Blood Count 10.6 x10^3/uL (4.0-11.0) Red Blood Count 3.46 x10^6/uL (3.50-5.40) Hemoglobin 10.6 g/dL (12.0-15.5) Hematocrit 33.5 % (36.0-47.0) Mean Corpuscular Volume 97 fL (79-100) Mean Corpuscular Hemoglobin 31 pg (25-35) Mean Corpuscular Hemoglobin Concent 32 g/dL (31-37) Red Cell Distribution Width 24.6 % (11.5-14.5) Platelet Count 147 x10^3/uL (140-400) Neutrophils (%) (Auto) 82 % (31-73) Lymphocytes (%) (Auto) 8 % (24-48) Monocytes (%) (Auto) 8 % (0-9) Eosinophils (%) (Auto) 1 % (0-3) Basophils (%) (Auto) 1 % (0-3) Neutrophils # (Auto) 8.6 x10^3/uL (1.8-7.7) Lymphocytes # (Auto) 0.9 x10^3/uL (1.0-4.8) Monocytes # (Auto) 0.9 x10^3/uL (0.0-1.1) Eosinophils # (Auto) 0.1 x10^3/uL (0.0-0.7) Basophils # (Auto) 0.1 x10^3/uL (0.0-0.2) Sodium Level 140 mmol/L (136-145) Potassium Level 4.6 mmol/L (3.5-5.1) Chloride Level 102 mmol/L (98-107) Carbon Dioxide Level 23 mmol/L (21-32) Anion Gap 15 (6-14) Blood Urea Nitrogen 43 mg/dL (7-20) Creatinine 9.8 mg/dL (0.6-1.0) Estimated GFR (Cockcroft-Gault) 4.8 Glucose Level 69 mg/dL (70-99) Calcium Level 9.1 mg/dL (8.5-10.1) Total Bilirubin 1.7 mg/dL (0.2-1.0) Direct Bilirubin 1.3 mg/dL (0.0-0.2) Aspartate Amino Transf (AST/SGOT) 149 U/L (15-37) Alanine Aminotransferase (ALT/SGPT) 123 U/L (14-59) Alkaline Phosphatase 145 U/L (46-116) Total Protein 6.5 g/dL (6.4-8.2) Albumin 2.1 g/dL (3.4-5.0) Glucose (Fingerstick) 54 mg/dL (70-99) 71 mg/dL (70-99) Test 09/04/19 13:33 09/04/19 18:26 09/04/19 21:58 09/05/19 04:15 Prothrombin Time 116.7 SEC (11.7-14.0) 100.0 SEC (11.7-14.0) Prothromb Time International Ratio > 15.0 (0.8-1.1) 12.5 (0.8-1.1) Glucose (Fingerstick) 59 mg/dL (70-99) 100 mg/dL (70-99) White Blood Count 10.1 x10^3/uL (4.0-11.0) Red Blood Count 3.34 x10^6/uL (3.50-5.40) Hemoglobin 10.0 g/dL (12.0-15.5) Hematocrit 31.0 % (36.0-47.0) Mean Corpuscular Volume 93 fL (79-100) Mean Corpuscular Hemoglobin 30 pg (25-35) Mean Corpuscular Hemoglobin Concent 32 g/dL (31-37) Red Cell Distribution Width 23.9 % (11.5-14.5) Platelet Count 130 x10^3/uL (140-400) Neutrophils (%) (Auto) 77 % (31-73) Lymphocytes (%) (Auto) 9 % (24-48) Monocytes (%) (Auto) 12 % (0-9) Eosinophils (%) (Auto) 2 % (0-3) Basophils (%) (Auto) 1 % (0-3) Neutrophils # (Auto) 7.8 x10^3/uL (1.8-7.7) Lymphocytes # (Auto) 0.9 x10^3/uL (1.0-4.8) Monocytes # (Auto) 1.2 x10^3/uL (0.0-1.1) Eosinophils # (Auto) 0.1 x10^3/uL (0.0-0.7) Basophils # (Auto) 0.1 x10^3/uL (0.0-0.2) Sodium Level 139 mmol/L (136-145) Potassium Level 4.0 mmol/L (3.5-5.1) Chloride Level 101 mmol/L (98-107) Carbon Dioxide Level 26 mmol/L (21-32) Anion Gap 12 (6-14) Blood Urea Nitrogen 35 mg/dL (7-20) Creatinine 8.2 mg/dL (0.6-1.0) Estimated GFR (Cockcroft-Gault) 6.0 BUN/Creatinine Ratio 4 (6-20) Glucose Level 71 mg/dL (70-99) Calcium Level 8.6 mg/dL (8.5-10.1) Total Bilirubin 2.1 mg/dL (0.2-1.0) Aspartate Amino Transf (AST/SGOT) 207 U/L (15-37) Alanine Aminotransferase (ALT/SGPT) 160 U/L (14-59) Alkaline Phosphatase 148 U/L (46-116) Total Protein 6.5 g/dL (6.4-8.2) Albumin 2.1 g/dL (3.4-5.0) Albumin/Globulin Ratio 0.5 (1.0-1.7) Random Vancomycin Level 13.3 mcg/mL Test 09/05/19 07:32 09/05/19 11:38 Glucose (Fingerstick) 59 mg/dL (70-99) 77 mg/dL (70-99) Laboratory Tests Test 09/04/19 13:33 09/04/19 18:26 09/04/19 21:58 09/05/19 04:15 Prothrombin Time 116.7 SEC (11.7-14.0) 100.0 SEC (11.7-14.0) Prothromb Time International Ratio > 15.0 (0.8-1.1) 12.5 (0.8-1.1) Glucose (Fingerstick) 59 mg/dL (70-99) 100 mg/dL (70-99) White Blood Count 10.1 x10^3/uL (4.0-11.0) Red Blood Count 3.34 x10^6/uL (3.50-5.40) Hemoglobin 10.0 g/dL (12.0-15.5) Hematocrit 31.0 % (36.0-47.0) Mean Corpuscular Volume 93 fL (79-100) Mean Corpuscular Hemoglobin 30 pg (25-35) Mean Corpuscular Hemoglobin Concent 32 g/dL (31-37) Red Cell Distribution Width 23.9 % (11.5-14.5) Platelet Count 130 x10^3/uL (140-400) Neutrophils (%) (Auto) 77 % (31-73) Lymphocytes (%) (Auto) 9 % (24-48) Monocytes (%) (Auto) 12 % (0-9) Eosinophils (%) (Auto) 2 % (0-3) Basophils (%) (Auto) 1 % (0-3) Neutrophils # (Auto) 7.8 x10^3/uL (1.8-7.7) Lymphocytes # (Auto) 0.9 x10^3/uL (1.0-4.8) Monocytes # (Auto) 1.2 x10^3/uL (0.0-1.1) Eosinophils # (Auto) 0.1 x10^3/uL (0.0-0.7) Basophils # (Auto) 0.1 x10^3/uL (0.0-0.2) Sodium Level 139 mmol/L (136-145) Potassium Level 4.0 mmol/L (3.5-5.1) Chloride Level 101 mmol/L (98-107) Carbon Dioxide Level 26 mmol/L (21-32) Anion Gap 12 (6-14) Blood Urea Nitrogen 35 mg/dL (7-20) Creatinine 8.2 mg/dL (0.6-1.0) Estimated GFR (Cockcroft-Gault) 6.0 BUN/Creatinine Ratio 4 (6-20) Glucose Level 71 mg/dL (70-99) Calcium Level 8.6 mg/dL (8.5-10.1) Total Bilirubin 2.1 mg/dL (0.2-1.0) Aspartate Amino Transf (AST/SGOT) 207 U/L (15-37) Alanine Aminotransferase (ALT/SGPT) 160 U/L (14-59) Alkaline Phosphatase 148 U/L (46-116) Total Protein 6.5 g/dL (6.4-8.2) Albumin 2.1 g/dL (3.4-5.0) Albumin/Globulin Ratio 0.5 (1.0-1.7) Random Vancomycin Level 13.3 mcg/mL Test 09/05/19 07:32 09/05/19 11:38 Glucose (Fingerstick) 59 mg/dL (70-99) 77 mg/dL (70-99) Medications Active Scripts Medications Dose Route/Sig Max Daily Dose Days Date Category Dose Instructions Femara (Letrozole) 2.5 Mg Tablet 1 Tab PO DAILY 30 09/04/19 Reported Lidocaine PATCH (Lidocaine) 1 Each Adh..patch 1 Each TP DAILY 09/04/19 Reported REMOVE AFTER 12 HOURS Nesina (Alogliptin Benzoate) 12.5 Mg Tablet 1 Tab PO DAILY 30 09/04/19 Reported Metoprolol Succinate ( Xl ) (Metoprolol Succinate) 25 Mg Tab.er.24h 25 Tab PO DAILY 09/04/19 Reported Montelukast Sodium Tablet (Montelukast Sodium) 10 Mg Tablet 10 Mg PO HS 09/04/19 Reported Warfarin Sodium 2 Mg Tablet 2 Mg PO DAILY 09/04/19 Reported Amiodarone Hcl 200 Mg Tablet 1 Tab PO DAILY 09/04/19 Reported Renvela (Sevelamer Carbonate) 800 Mg Tablet 800 Mg PO TIDWMEALS 02/03/19 Reported Clopidogrel (Clopidogrel Bisulfate) 75 Mg Tablet 75 Mg PO DAILY 02/03/19 Reported Nitrostat (Nitroglycerin) 0.4 Mg Tab.subl 0.4 Mg SL PRN Q5MIN PRN 20 10/14/18 Rx Latanoprost 2.5 Ml Drops 1 Drop EACHEYE QHS 10/13/18 Reported Symbicort 160-4.5 Mcg Inhaler (Budesonide/Formoterol Fumarate) 10.2 Gm Hfa.aer.ad 2 Puff IH BID 10/13/18 Reported Glipizide 5 Mg Tablet 2.5 Mg PO DAILY 01/14/18 Reported Jacquie-Debbi Tablet (Folic Acid/Vitamin B Comp W-C) 0.8 Mg Tablet 0.8 Mg PO DAILY 05/26/15 Reported Atorvastatin Calcium 40 Mg Tablet 1 Tab PO DAILY 07/29/[address] of chest, There is a large partly loculated right-sided pleural effusion with some adjacent compressive atelectasis. Impression . IMPRESSION: 1. Dyspnea, multifactorial in etiology, including volume overload, rule out pneumonia, chronic obstructive pulmonary disease versus others. 2. Abnormal chest x-ray. 3. Recent history of pulmonary embolism. 4. Chronic obstructive pulmonary disease. 5. Leukocytosis, ? right loculated pleural effusion, ? pneumonia. 6. End-stage renal disease, on hemodialysis. 7. Hypotension, ? sepsis. 8. Diabetes mellitus. 9. Transaminitis, ? secondary to congestive heart failure versus others. Plan . PLAN AND RECOMMENDATIONS: 1. Titrate FiO2 to keep O2 saturation 92%. 2. ct reviewed, There is a large partly loculated right-sided pleural effusion with some adjacent compressive atelectasis. will ask ir to place chest tube when inr is less than 1.5, coumadin on hold, inr 12.5 today vit k per primary discussed w primary 3. Continue vancomycin and Zosyn, per id 4. Followup labs and cultures. 5. Coumadin on hold 6. PT/INR in am. 7. Protonix for stress ulcer prophylaxis. 8. fu covid19 testing discussed w primary, rn pt ELVIRA SARMIENTO MD Sep 05, 2019 12:46
--- NOTE | 2019-09-05 12:50 | NUR ---
Pharmacy Vancomycin Dosing Note S: Consulted to monitor and dose vancomycin started 09/03/19. O: ACE GUPTA is a 64 year old F with Pneumonia, . Other Antibiotics: ZOSYN LABS: Last BUN: 35 Last Creatinine: 8.2 Creatinine Clearance: DIALYSIS mL/min Last WBC: 10.1 Last Procalcitonin: Tmax (past 24 hours): 98.7 Microbiology: - I/O: 590/- Drug Levels: Last Random level: 13.3 on 09/05/19 at 0600 Last dose given 09/03/19 at 1804 Vancomycin Dosing: Dosing Weight: Actual Target Trough: 15-20 A: Based on: random vanco level P: 1. Begin Vancomycin 500 mg IV HD 2. Follow up Random level on 09/08/19 at 0600 3. Pharmacy will continue to monitor, follow and adjust therapy as needed. GLORIA ARNDT [facility], 09/05/19 [id number]
[2019-09-05] MEDS ORDERED: PHYTONADIONE 10 MG/ML ORAL SOLUTION. PO ONE (14:15)
--- NOTE | 2019-09-05 14:19 | PDOC ---
GENERAL General: Patient examined chart reviewed today is hospital day 3 for this patient with complex extensive multi-morbidity transferred to the emergency department while on her way to dialysis was noted to be hypotensive and more short of breath. She has been found to have a large right loculated effusion and probable pneumonia. She is on broad-spectrum antibiotics and followed by infectious diseases and pulmonary critical care their assistance is appreciated. 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 We are still awaiting her results after COVID-19 swab yesterday. I had a chance to speak with the critical care doctor and it does look like this patient will need a chest tube however her INR needs to be at 1.5 or less. We will treat with low-dose vitamin K 1 dose today and reassess in the morning. She will likely respond vigorously to that given her renal failure. Greater than 30 minutes were spent with this patient today with greater than 50% in counseling and coordination of care most of which in discussion with patient, nursing, and the team. Problems: (1) Exposure to COVID-19 virus (2) ESRD (end stage renal disease) (3) DM2 (diabetes mellitus, type 2) (4) Pleural effusion, right (5) Pneumonia VITAL SIGNS Vital Signs/I&O: Vital Signs Date Time Temp Pulse Resp B/P (MAP) Pulse Ox O2 Delivery O2 Flow Rate FiO2 09/05/19 10:57 97.9 85 18 128/26 (60) 92 Nasal Cannula 2.0 97.9 I & O 09/04/19 09/04/19 09/05/19 15:00 23:00 07:00 Intake Total 350 ml 240 ml Balance 350 ml 240 ml In general the patient is pleasant week resting in bed trying to eat alert and oriented x3 no acute distress HEENT exam is unremarkable for acute abnormality Chest bilateral equal air entry though diminished throughout patient is coughing throughout the exam. Inspiratory and expiratory crackles noted at the bilateral bases Heart S1-S2 normal regular rate and rhythm no murmurs or gallops are noted Abdomen soft nontender nondistended no masses organomegaly noted Extremity exam is unremarkable for acute abnormality ALLERGIES Allergies: Allergies Coded Allergies Type Severity Reaction Last Updated Verified Iodine and Iodide Containing Produc Allergy Severe swells up & itches 02/13/18 Yes shellfish derived Allergy Intermediate "SEAFOOD" 02/13/18 Yes MEDS Medications: Current Medications Medications (Trade) Dose Ordered Sig/Chinmay Route PRN Reason Start Time Stop Time Status Last Admin Dose Admin Atorvastatin Calcium (Lipitor) 40 mg QHS PO 09/04/19 21:00 09/04/19 21:50 Latanoprost (Xalatan) 1 drop QHS OU 09/04/19 21:00 09/04/19 21:51 Montelukast Sodium (Singulair) 10 mg HS PO 09/04/19 21:00 09/04/19 21:50 Sevelamer Carbonate (Renvela) 800 mg TIDWMEALS PO 09/04/19 17:00 09/05/19 12:56 LAB Lab: Laboratory Tests Test 09/04/19 18:26 09/04/19 21:58 09/05/19 04:15 09/05/19 07:32 Glucose (Fingerstick) 59 mg/dL (70-99) L 100 mg/dL (70-99) H 59 mg/dL (70-99) L White Blood Count 10.1 x10^3/uL (4.0-11.0) Red Blood Count 3.34 x10^6/uL (3.50-5.40) L Hemoglobin 10.0 g/dL (12.0-15.5) L Hematocrit 31.0 % (36.0-47.0) L Mean Corpuscular Volume 93 fL (79-100) Mean Corpuscular Hemoglobin 30 pg (25-35) Mean Corpuscular Hemoglobin Concent 32 g/dL (31-37) Red Cell Distribution Width 23.9 % (11.5-14.5) H Platelet Count 130 x10^3/uL (140-400) L Neutrophils (%) (Auto) 77 % (31-73) H Lymphocytes (%) (Auto) 9 % (24-48) L Monocytes (%) (Auto) 12 % (0-9) H Eosinophils (%) (Auto) 2 % (0-3) Basophils (%) (Auto) 1 % (0-3) Neutrophils # (Auto) 7.8 x10^3/uL (1.8-7.7) H Lymphocytes # (Auto) 0.9 x10^3/uL (1.0-4.8) L Monocytes # (Auto) 1.2 x10^3/uL (0.0-1.1) H Eosinophils # (Auto) 0.1 x10^3/uL (0.0-0.7) Basophils # (Auto) 0.1 x10^3/uL (0.0-0.2) Prothrombin Time 100.0 SEC (11.7-14.0) H Prothrombin Time INR 12.5 (0.8-1.1) *H Sodium Level 139 mmol/L (136-145) Potassium Level 4.0 mmol/L (3.5-5.1) Chloride Level 101 mmol/L (98-107) Carbon Dioxide Level 26 mmol/L (21-32) Anion Gap 12 (6-14) Blood Urea Nitrogen 35 mg/dL (7-20) H Creatinine 8.2 mg/dL (0.6-1.0) H Estimated GFR (Cockcroft-Gault) 6.0 BUN/Creatinine Ratio 4 (6-20) L Glucose Level 71 mg/dL (70-99) Calcium Level 8.6 mg/dL (8.5-10.1) Total Bilirubin 2.1 mg/dL (0.2-1.0) H Aspartate Amino Transferase (AST) 207 U/L (15-37) H Alanine Aminotransferase (ALT) 160 U/L (14-59) H Alkaline Phosphatase 148 U/L (46-116) H Total Protein 6.5 g/dL (6.4-8.2) Albumin 2.1 g/dL (3.4-5.0) L Albumin/Globulin Ratio 0.5 (1.0-1.7) L Random Vancomycin Level 13.3 mcg/mL Test 09/05/19 11:38 Glucose (Fingerstick) 77 mg/dL (70-99) Laboratory Tests 09/05/19 04:15 Laboratory Tests 09/05/19 04:15 IMAGING Imaging: PATIENT: ACE GUPTA ACCOUNT: [id number] : 1955 LOCATION: [address] [place] [address] AGE: 64 SEX: F EXAM STATUS: ADM IN ORD. PHYSICIAN: ELVIRA SARMIENTO MD REASON: abnl cxr PROCEDURE: CT CHEST WO CONTRAST CT chest without contrast 09/04/2019. Reason for exam: Abnormal chest x-ray. Helical noncontrast images were performed. Sagittal and coronal reconstructions were obtained. Exposure: One or more of the following individualized dose reduction techniques were utilized for this examination: 1. Automated exposure control 2. Adjustment of the mA and/or kV according to patient size 3. Use of iterative reconstruction technique. Correlation is made with a radiograph of the previous day. FINDINGS: There is a fairly large right-sided pleural effusion with areas of loculation laterally. There is some adjacent atelectasis. No large area of consolidation is seen in the right lung. There is minimal atelectasis or scarring in the left lung without left-sided effusion. The central airways show no obstruction. The trachea is deviated some to the right by an enlarged left thyroid lobe that likely contains at least one nodule. There are some mildly prominent left axillary lymph nodes with calcification. The largest node measures roughly 1.5 cm. Evaluation of the mediastinum and domonique is limited by lack of contrast. There is a stent bowel device at the aortic valve. There is no obvious mediastinal adenopathy or hilar adenopathy. IMPRESSION: There is a large partly loculated right-sided pleural effusion with some adjacent compressive atelectasis. There is an enlarged left thyroid lobe. Electronically signed by: Cheri Hsu Jr., MD (09/04/2019 11:13 AM) [id number] DICTATED and SIGNED BY: CHERI HSU Jr, MD DATE: 09/04/19 1113 ASSESSMENT & PLAN A&P Plan as noted above This note was created using Medio and may have omissions and/or errors due to the nature of real-time voice spine supervisor. Justicifation of Admission Dx: Justifications for Admission: Justification of Admission Dx: Yes Chronic Renal Failure: Renail Failure MOSES WADSWORTH MD Sep 05, 2019 14:19
[2019-09-05] MEDS: VANCOMYCIN 500 MG in IV NORMAL SALINE 100ML 100 ML IV SCH (14:54)
[2019-09-05 15:00] VITALS: BP 132/39
--- NOTE | 2019-09-05 17:46 | PDOC ---
CARDIOLOGY PROGRESS NOTE SUBJECTIVE: No new events. Await COVID swab. OBJECTIVE: Vital Signs/I&O: Vital Signs Date Time Temp Pulse Resp B/P (MAP) Pulse Ox O2 Delivery O2 Flow Rate FiO2 09/05/19 15:00 97.7 80 18 132/39 (70) 93 Nasal Cannula 2.0 97.7 I & O 09/04/19 09/04/19 09/05/19 15:00 23:00 07:00 Intake Total 350 ml 240 ml Balance 350 ml 240 ml Objective: Deferred due to COVID CURRENT MEDICATIONS: Current Medications Medications (Trade) Dose Ordered Sig/Chinmay Route PRN Reason Start Time Stop Time Status Last Admin Dose Admin Atorvastatin Calcium (Lipitor) 40 mg QHS PO 09/04/19 21:00 09/04/19 21:50 Latanoprost (Xalatan) 1 drop QHS OU 09/04/19 21:00 09/04/19 21:51 Montelukast Sodium (Singulair) 10 mg HS PO 09/04/19 21:00 09/04/19 21:50 Vancomycin HCl 500 mg/Sodium Chloride 100 ml @ 100 mls/hr QMWF IV 09/05/19 14:00 09/05/19 14:54 Phytonadione (Mephyton Oral Soln) 2.5 mg 1X ONCE PO 09/05/19 14:15 09/05/19 14:16 DC 09/05/19 15:09 DIAGNOSTIC TESTING: Labs: Laboratory Tests 09/05/19 04:15 Laboratory Tests Test 09/04/19 18:26 09/04/19 21:58 09/05/19 04:15 09/05/19 07:32 Glucose (Fingerstick) 59 mg/dL (70-99) L 100 mg/dL (70-99) H 59 mg/dL (70-99) L White Blood Count 10.1 x10^3/uL (4.0-11.0) Red Blood Count 3.34 x10^6/uL (3.50-5.40) L Hemoglobin 10.0 g/dL (12.0-15.5) L Hematocrit 31.0 % (36.0-47.0) L Mean Corpuscular Volume 93 fL (79-100) Mean Corpuscular Hemoglobin 30 pg (25-35) Mean Corpuscular Hemoglobin Concent 32 g/dL (31-37) Red Cell Distribution Width 23.9 % (11.5-14.5) H Platelet Count 130 x10^3/uL (140-400) L Neutrophils (%) (Auto) 77 % (31-73) H Lymphocytes (%) (Auto) 9 % (24-48) L Monocytes (%) (Auto) 12 % (0-9) H Eosinophils (%) (Auto) 2 % (0-3) Basophils (%) (Auto) 1 % (0-3) Neutrophils # (Auto) 7.8 x10^3/uL (1.8-7.7) H Lymphocytes # (Auto) 0.9 x10^3/uL (1.0-4.8) L Monocytes # (Auto) 1.2 x10^3/uL (0.0-1.1) H Eosinophils # (Auto) 0.1 x10^3/uL (0.0-0.7) Basophils # (Auto) 0.1 x10^3/uL (0.0-0.2) Prothrombin Time 100.0 SEC (11.7-14.0) H Prothromb Time International Ratio 12.5 (0.8-1.1) *H Sodium Level 139 mmol/L (136-145) Potassium Level 4.0 mmol/L (3.5-5.1) Chloride Level 101 mmol/L (98-107) Carbon Dioxide Level 26 mmol/L (21-32) Anion Gap 12 (6-14) Blood Urea Nitrogen 35 mg/dL (7-20) H Creatinine 8.2 mg/dL (0.6-1.0) H Estimated GFR (Cockcroft-Gault) 6.0 BUN/Creatinine Ratio 4 (6-20) L Glucose Level 71 mg/dL (70-99) Calcium Level 8.6 mg/dL (8.5-10.1) Total Bilirubin 2.1 mg/dL (0.2-1.0) H Aspartate Amino Transf (AST/SGOT) 207 U/L (15-37) H Alkaline Phosphatase 148 U/L (46-116) H Total Protein 6.5 g/dL (6.4-8.2) Albumin 2.1 g/dL (3.4-5.0) L Albumin/Globulin Ratio 0.5 (1.0-1.7) L Random Vancomycin Level 13.3 mcg/mL Test 09/05/19 11:38 09/05/19 16:15 Glucose (Fingerstick) 77 mg/dL (70-99) 88 mg/dL (70-99) ASSESSMENT: 1. 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 CAD s/p PCI to the LAD and diagonal in 2019 at [facility] 3. HTN 4 .ESRD 5. Loculated pleural effusion 6. Recent flutter ablation at [facility] PLAN: 1. Continue home meds including amiodarone 2. Elevated troponin likely type 2 MT. 3. No further CV testing needed. Agree with thoracentesis for dyspnea. Continue fluid removal with HD. Will follow along. Reviewed extensive records at [facility] for > 30 minutes. thanks Justicifation of Admission Dx: Justifications for Admission: Justification of Admission Dx: Yes Chronic Renal Failure: Renail Failure TALHA RON MD Sep 05, 2019 17:46
[2019-09-05 19:12] VITALS: BP 106/58
[2019-09-05] MEDS: MONTELUKAST SODIUM 10 MG TABLET. PO SCH (19:55)
[2019-09-05] MEDS: ATORVASTATIN CALCIUM 40 MG TABLET. PO SCH (19:55)
[2019-09-05] MEDS: LACTOBACILLUS RHAMNOSUS GG 1 CAPSULE. PO SCH ×2 (19:55→20:38)
[2019-09-05] MEDS: LATANOPROST 0.005% OPHTH SOLUTION 2.5ML BOTTLE. OU SCH (19:55)
[2019-09-05] MEDS ORDERED: DARBEPOETIN ALFA 60 MCG/0.3 ML DISP.SYRIN. SQ SCH (21:00)
--- NOTE | 2019-09-05 21:53 | NUR ---
Dr Kim paged to see if wanted pt NPO for thoracentesis if INR within therapeutic range in AM. Verbal order given ok to do so. RN asked if INR still elevated if Dr wanted to give another dose of Vit K. Dr Kim stated no. Order entered. Will continue to monitor pt status.
[2019-09-05 23:40] VITALS: BP 110/58
--- NOTE | 2019-09-06 02:00 | NUR ---
Pt called out stating was having trouble breathing. RN entered room and pt was coughing. Tissues noted on floor with thick brown/yellow sputum on them. Some tissues also noted to have pink tinged sputum. Pt reported coughing up some blood - reported just small amounts. RN inquired if bright red or dark. Pt reported bright - pt has elevated INR. RN instructed pt that if coughed up any more blood to notify RN so RN could assess. Coughing eased up and RN assisted pt back in bed. RN elevated HOB to ease pt breathing. Albuterol inhaler ordered for pt as RT tx not being given. When inhaler arrived pt sleeping. RN offered inhaler to pt who decided to wait to use. O2 increased to 3L while pt sleeps. Will continue to monitor pt status closely.
[2019-09-06] MEDS ORDERED: ALBUTEROL SULFATE 8GM INHALER. INH PRN (02:45)
[2019-09-06 02:50] VITALS: BP 96/47
[2019-09-06] MEDS: PIPERACILLIN/TAZOBACTAM 2.25 GM in IV NORMAL SALINE 50ML 50 ML IV SCH ×4 (05:42→21:25)
--- NOTE | 2019-09-06 06:31 | EKG ---
[facility] [address] [place] [address] Test Date: 2019-09-03 Test Time: 16:19:25 Pat Name: ACE GUPTA Department: Room: Gender: F Jewish History Professor: : 1955 Requested By: MAYE DANIELS Order Number: [id number] Reading MD: Measurements Intervals [place] Rate: 80 P: 56 VA: 192 QRS: -35 QRSD: 142 T: 111 QT: 430 QTc: 500 Interpretive Statements SINUS RHYTHM LOW LIMB LEAD VOLTAGE NON SPECIFIC INTRAVENTRICULAR BLOCK QRS(T) CONTOUR ABNORMALITY CONSISTENT WITH ANTEROSEPTAL INFARCT PROBABLY OLD ABNORMAL ECG RI6.02 No previous ECG available for comparison
[2019-09-06 07:20] VITALS: BP 87/51
[2019-09-06] MEDS: INSULIN LISPRO 300 UNITS/3 ML VIAL. SQ SCH ×4 (07:30→21:00)
--- NOTE | 2019-09-06 08:33 | PDOC ---
PULMONARY PROGRESS NOTES Subjective Patient not more short of air, continues with diarrhea Vitals Vital Signs Date Time Temp Pulse Resp B/P (MAP) Pulse Ox O2 Delivery O2 Flow Rate FiO2 09/06/19 07:20 97.5 80 17 87/51 (63) 100 97.5 09/06/19 02:50 Nasal Cannula 2.0 Comments on 02 no distress alert no paradoxical abd motion no audible wheezing no rash no edema ekg nsr ROS: No Nausea, No Chest Pain, No Abdominal Pain, No Increase Cough Lungs: Other (Decreased breath sounds in the base) Cardiovascular: S1, S2 Abdomen: Soft Neuro Exam: Alert Extremities: No Edema Skin: Warm Labs Laboratory Tests Test 09/04/19 11:10 09/04/19 13:33 09/04/19 18:26 09/04/19 21:58 Glucose (Fingerstick) 71 mg/dL (70-99) 59 mg/dL (70-99) 100 mg/dL (70-99) Prothrombin Time 116.7 SEC (11.7-14.0) Prothromb Time International Ratio > 15.0 (0.8-1.1) Test 09/05/19 04:15 09/05/19 07:32 09/05/19 11:38 09/05/19 16:15 White Blood Count 10.1 x10^3/uL (4.0-11.0) Red Blood Count 3.34 x10^6/uL (3.50-5.40) Hemoglobin 10.0 g/dL (12.0-15.5) Hematocrit 31.0 % (36.0-47.0) Mean Corpuscular Volume 93 fL (79-100) Mean Corpuscular Hemoglobin 30 pg (25-35) Mean Corpuscular Hemoglobin Concent 32 g/dL (31-37) Red Cell Distribution Width 23.9 % (11.5-14.5) Platelet Count 130 x10^3/uL (140-400) Neutrophils (%) (Auto) 77 % (31-73) Lymphocytes (%) (Auto) 9 % (24-48) Monocytes (%) (Auto) 12 % (0-9) Eosinophils (%) (Auto) 2 % (0-3) Basophils (%) (Auto) 1 % (0-3) Neutrophils # (Auto) 7.8 x10^3/uL (1.8-7.7) Lymphocytes # (Auto) 0.9 x10^3/uL (1.0-4.8) Monocytes # (Auto) 1.2 x10^3/uL (0.0-1.1) Eosinophils # (Auto) 0.1 x10^3/uL (0.0-0.7) Basophils # (Auto) 0.1 x10^3/uL (0.0-0.2) Prothrombin Time 100.0 SEC (11.7-14.0) Prothromb Time International Ratio 12.5 (0.8-1.1) Sodium Level 139 mmol/L (136-145) Potassium Level 4.0 mmol/L (3.5-5.1) Chloride Level 101 mmol/L (98-107) Carbon Dioxide Level 26 mmol/L (21-32) Anion Gap 12 (6-14) Blood Urea Nitrogen 35 mg/dL (7-20) Creatinine 8.2 mg/dL (0.6-1.0) Estimated GFR (Cockcroft-Gault) 6.0 BUN/Creatinine Ratio 4 (6-20) Glucose Level 71 mg/dL (70-99) Calcium Level 8.6 mg/dL (8.5-10.1) Total Bilirubin 2.1 mg/dL (0.2-1.0) Aspartate Amino Transf (AST/SGOT) 207 U/L (15-37) Alanine Aminotransferase (ALT/SGPT) 160 U/L (14-59) Alkaline Phosphatase 148 U/L (46-116) Total Protein 6.5 g/dL (6.4-8.2) Albumin 2.1 g/dL (3.4-5.0) Albumin/Globulin Ratio 0.5 (1.0-1.7) Random Vancomycin Level 13.3 mcg/mL Glucose (Fingerstick) 59 mg/dL (70-99) 77 mg/dL (70-99) 88 mg/dL (70-99) Test 09/05/19 20:44 09/05/19 21:24 Glucose (Fingerstick) 69 mg/dL (70-99) 89 mg/dL (70-99) Laboratory Tests Test 09/05/19 11:38 09/05/19 16:15 09/05/19 20:44 09/05/19 21:24 Glucose (Fingerstick) 77 mg/dL (70-99) 88 mg/dL (70-99) 69 mg/dL (70-99) 89 mg/dL (70-99) Medications Active Scripts Medications Dose Route/Sig Max Daily Dose Days Date Category Dose Instructions Femara (Letrozole) 2.5 Mg Tablet 1 Tab PO DAILY 30 09/04/19 Reported Lidocaine PATCH (Lidocaine) 1 Each Adh..patch 1 Each TP DAILY 09/04/19 Reported REMOVE AFTER 12 HOURS Nesina (Alogliptin Benzoate) 12.5 Mg Tablet 1 Tab PO DAILY 30 09/04/19 Reported Metoprolol Succinate ( Xl ) (Metoprolol Succinate) 25 Mg Tab.er.24h 25 Tab PO DAILY 09/04/19 Reported Montelukast Sodium Tablet (Montelukast Sodium) 10 Mg Tablet 10 Mg PO HS 09/04/19 Reported Warfarin Sodium 2 Mg Tablet 2 Mg PO DAILY 09/04/19 Reported Amiodarone Hcl 200 Mg Tablet 1 Tab PO DAILY 09/04/19 Reported Renvela (Sevelamer Carbonate) 800 Mg Tablet 800 Mg PO TIDWMEALS 02/03/19 Reported Clopidogrel (Clopidogrel Bisulfate) 75 Mg Tablet 75 Mg PO DAILY 02/03/19 Reported Nitrostat (Nitroglycerin) 0.4 Mg Tab.subl 0.4 Mg SL PRN Q5MIN PRN 20 10/14/18 Rx Latanoprost 2.5 Ml Drops 1 Drop EACHEYE QHS 10/13/18 Reported Symbicort 160-4.5 Mcg Inhaler (Budesonide/Formoterol Fumarate) 10.2 Gm Hfa.aer.ad 2 Puff IH BID 10/13/18 Reported Glipizide 5 Mg Tablet 2.5 Mg PO DAILY 01/14/18 Reported Jacquie-Debbi Tablet (Folic Acid/Vitamin B Comp W-C) 0.8 Mg Tablet 0.8 Mg PO DAILY 05/26/15 Reported Atorvastatin Calcium 40 Mg Tablet 1 Tab PO DAILY 07/29/[address] of chest, There is a large partly loculated right-sided pleural effusion with some adjacent compressive atelectasis. Impression . IMPRESSION: 1. Progressive dyspnea, multifactorial, possibly related to effusion, COPD exacerbation 2. Abnormal chest x-ray., Loculated effusion seen on CT chest 3. Recent history of pulmonary embolism. 4. Chronic obstructive pulmonary disease. 5. Leukocytosis, ? right loculated pleural effusion, ? pneumonia. 6. End-stage renal disease, on hemodialysis. 7. Hypotension, ? sepsis. 8. Diabetes mellitus. 9. Transaminitis, ? secondary to congestive heart failure versus others. 10. Coagulopathy 11. Possible pneumonia 12. Suspect for COVID-19 Plan . INR elevated Will await for thoracentesis to be performed once INR is less than 2 Continue antibiotics per ID Oxygen supplementation SARS-CoV-2 pending MELVIN ROBISON MD Sep 06, 2019 08:33
[2019-09-06] MEDS: AMIODARONE HCL 200 MG TABLET. PO SCH ×2 (09:00→13:06)
[2019-09-06 09:33] LABS: BASO # 0.1 x10^3/uL (0.0-0.2); BASO % 1 % (0-3); EOS # 0.2 x10^3/uL (0.0-0.7); EOS % 2 % (0-3); HEMATOCRIT 32.4 % (36.0-47.0); HEMOGLOBIN 10.6 g/dL (12.0-15.5); LYMPH # 1.1 x10^3/uL (1.0-4.8); LYMPH % 12 % (24-48); MEAN CORPUSCULAR HEMOGLOBIN 31 pg (25-35); MEAN CORPUSCULAR HGB CONC 33 g/dL (31-37); MEAN CORPUSCULAR VOLUME 94 fL (79-100); MONO # 1.1 x10^3/uL (0.0-1.1); MONO % 12 % (0-9); NEUT # 6.5 x10^3/uL (1.8-7.7); NEUT % 73 % (31-73); PLATELET COUNT 127 x10^3/uL (140-400); RED BLOOD COUNT 3.46 x10^6/uL (3.50-5.40); RED CELL DISTRIBUTION WIDTH 23.8 % (11.5-14.5); WHITE BLOOD COUNT 8.9 x10^3/uL (4.0-11.0)
[2019-09-06 09:43] LABS: PROTHROMBIN TIME PATIENT 42.9 SEC (11.7-14.0)
[2019-09-06] MEDS ORDERED: IV NORMAL SALINE 1000ML BAG 1,000 ML IV PRN ×2 (10:00)
[2019-09-06] MEDS: FOLIC/VIT B COMP W-C (RENAL) TABLET. PO SCH (10:09)
[2019-09-06] MEDS: LACTOBACILLUS RHAMNOSUS GG 1 CAPSULE. PO SCH (10:09)
[2019-09-06] MEDS: LINAGLIPTIN 5 MG TABLET PO SCH (10:09)
[2019-09-06] MEDS: SEVELAMER CARBONATE 800 MG TABLET. PO SCH ×3 (10:10→17:00)
[2019-09-06] MEDS: LIDOCAINE (700MG/PATCH) PATCH. TP SCH (10:10)
[2019-09-06] MEDS: CLOPIDOGREL BISULFATE 75 MG TABLET PO SCH (10:10)
[2019-09-06 10:13] LABS: ALBUMIN 2.3 g/dL (3.4-5.0); ALBUMIN/GLOBULIN RATIO 0.5 (1.0-1.7); CALCIUM 9.2 mg/dL (8.5-10.1); CREATININE 9.6 mg/dL (0.6-1.0); POTASSIUM 4.2 mmol/L (3.5-5.1); TOTAL BILIRUBIN 2.5 mg/dL (0.2-1.0); TOTAL PROTEIN 7.2 g/dL (6.4-8.2)
[2019-09-06] MEDS ORDERED: DIALYSIS PATIENT. MC PRN ×2 (10:15)
[2019-09-06] MEDS ORDERED: ALBUMIN HUMAN 25% 200 ML IV PRN (10:15)
[2019-09-06] MEDS: METOPROLOL SUCC 24HR ER 25 MG TAB.ER.24H. PO SCH (10:54)
[2019-09-06 11:16] VITALS: BP 100/61
--- NOTE | 2019-09-06 12:08 | PDOC ---
Infectious Disease Note Subjective Subjective Some aches and cough + loose stools 3L O2 No fevers Denies SOA/CP/N/V/abd cramps Vital Sign Vital Signs Vital Signs Date Time Temp Pulse Resp B/P (MAP) Pulse Ox O2 Delivery O2 Flow Rate FiO2 09/06/19 11:16 96.8 94 18 100/61 (74) 98 Nasal Cannula 96.8 09/06/19 02:50 2.0 Physical Exam PHYSICAL EXAM GENERAL: Propped up in bed, alert in NAD HEENT: Pupils equal and reactive. Normal conjunctivae. Oral cavity, pharynx clear. NECK: Supple. Good range of motion. LUNGS: Clear to auscultation bilaterally. HEART: S1, S2. ABDOMEN: Obese, soft, nontender with no guarding. EXTREMITIES: No clubbing, cyanosis or gross edema. RUE-AV fistula. SKIN: Warm to touch without signs of rash. She has a chronic scar in her right lower extremity. NEUROLOGIC: Alert, nonfocal. PIV ok Labs Lab Laboratory Tests Test 09/05/19 16:15 09/05/19 20:44 09/05/19 21:24 09/06/19 08:46 Glucose (Fingerstick) 88 mg/dL (70-99) 69 mg/dL (70-99) 89 mg/dL (70-99) 69 mg/dL (70-99) Test 09/06/19 09:00 White Blood Count 8.9 x10^3/uL (4.0-11.0) Red Blood Count 3.46 x10^6/uL (3.50-5.40) Hemoglobin 10.6 g/dL (12.0-15.5) Hematocrit 32.4 % (36.0-47.0) Mean Corpuscular Volume 94 fL (79-100) Mean Corpuscular Hemoglobin 31 pg (25-35) Mean Corpuscular Hemoglobin Concent 33 g/dL (31-37) Red Cell Distribution Width 23.8 % (11.5-14.5) Platelet Count 127 x10^3/uL (140-400) Neutrophils (%) (Auto) 73 % (31-73) Lymphocytes (%) (Auto) 12 % (24-48) Monocytes (%) (Auto) 12 % (0-9) Eosinophils (%) (Auto) 2 % (0-3) Basophils (%) (Auto) 1 % (0-3) Neutrophils # (Auto) 6.5 x10^3/uL (1.8-7.7) Lymphocytes # (Auto) 1.1 x10^3/uL (1.0-4.8) Monocytes # (Auto) 1.1 x10^3/uL (0.0-1.1) Eosinophils # (Auto) 0.2 x10^3/uL (0.0-0.7) Basophils # (Auto) 0.1 x10^3/uL (0.0-0.2) Prothrombin Time 42.9 SEC (11.7-14.0) Prothromb Time International Ratio 4.4 (0.8-1.1) Sodium Level 141 mmol/L (136-145) Potassium Level 4.2 mmol/L (3.5-5.1) Chloride Level 101 mmol/L (98-107) Carbon Dioxide Level 26 mmol/L (21-32) Anion Gap 14 (6-14) Blood Urea Nitrogen 43 mg/dL (7-20) Creatinine 9.6 mg/dL (0.6-1.0) Estimated GFR (Cockcroft-Gault) 5.0 BUN/Creatinine Ratio 4 (6-20) Glucose Level 71 mg/dL (70-99) Calcium Level 9.2 mg/dL (8.5-10.1) Total Bilirubin 2.5 mg/dL (0.2-1.0) Aspartate Amino Transf (AST/SGOT) 153 U/L (15-37) Alanine Aminotransferase (ALT/SGPT) 167 U/L (14-59) Alkaline Phosphatase 180 U/L (46-116) Total Protein 7.2 g/dL (6.4-8.2) Albumin 2.3 g/dL (3.4-5.0) Albumin/Globulin Ratio 0.5 (1.0-1.7) Objective Assessment Leukocytosis - better Chronic kidney disease, on hemodialysis. Questionable loculated right pleural effusion. Hypertension. Diabetes. Transaminitis, questionable secondary to congestion. Loose stools Plan Plan of Care Cont Vanc and Zosyn COVID pending Monitor labs Maintain aspiration precautions Feeling better. Awaiting Thoracentesis FARIBA ZAMORA MD Sep 06, 2019 12:08
[2019-09-06] MEDS: VANCOMYCIN PER PHARMACY MC PRN (12:12)
--- NOTE | 2019-09-06 12:24 | PDOC ---
CARDIO Progress Notes Date and Time Date of Service 09/06/19 Time of Evaluation 1210 Subjective Subjective: No Chest Pain, No shortness of breath Vitals Vitals Vital Signs Date Time Temp Pulse Resp B/P (MAP) Pulse Ox O2 Delivery O2 Flow Rate FiO2 09/06/19 11:16 96.8 94 18 100/61 (74) 98 Nasal Cannula 96.8 09/06/19 02:50 2.0 Weight Weight [ ] Input and Output Intake and Output Intake and Output 09/06/19 07:00 Intake Total 900 ml Output Total 0 ml Balance 900 ml Intake Oral 900 ml Output Urine Total 0 ml # Bowel Movements 1 Laboratory Labs Laboratory Tests Test 09/05/19 16:15 09/05/19 20:44 09/05/19 21:24 09/06/19 08:46 Glucose (Fingerstick) 88 mg/dL (70-99) 69 mg/dL (70-99) 89 mg/dL (70-99) 69 mg/dL (70-99) Test 09/06/19 09:00 White Blood Count 8.9 x10^3/uL (4.0-11.0) Red Blood Count 3.46 x10^6/uL (3.50-5.40) Hemoglobin 10.6 g/dL (12.0-15.5) Hematocrit 32.4 % (36.0-47.0) Mean Corpuscular Volume 94 fL (79-100) Mean Corpuscular Hemoglobin 31 pg (25-35) Mean Corpuscular Hemoglobin Concent 33 g/dL (31-37) Red Cell Distribution Width 23.8 % (11.5-14.5) Platelet Count 127 x10^3/uL (140-400) Neutrophils (%) (Auto) 73 % (31-73) Lymphocytes (%) (Auto) 12 % (24-48) Monocytes (%) (Auto) 12 % (0-9) Eosinophils (%) (Auto) 2 % (0-3) Basophils (%) (Auto) 1 % (0-3) Neutrophils # (Auto) 6.5 x10^3/uL (1.8-7.7) Lymphocytes # (Auto) 1.1 x10^3/uL (1.0-4.8) Monocytes # (Auto) 1.1 x10^3/uL (0.0-1.1) Eosinophils # (Auto) 0.2 x10^3/uL (0.0-0.7) Basophils # (Auto) 0.1 x10^3/uL (0.0-0.2) Prothrombin Time 42.9 SEC (11.7-14.0) Prothromb Time International Ratio 4.4 (0.8-1.1) Sodium Level 141 mmol/L (136-145) Potassium Level 4.2 mmol/L (3.5-5.1) Chloride Level 101 mmol/L (98-107) Carbon Dioxide Level 26 mmol/L (21-32) Anion Gap 14 (6-14) Blood Urea Nitrogen 43 mg/dL (7-20) Creatinine 9.6 mg/dL (0.6-1.0) Estimated GFR (Cockcroft-Gault) 5.0 BUN/Creatinine Ratio 4 (6-20) Glucose Level 71 mg/dL (70-99) Calcium Level 9.2 mg/dL (8.5-10.1) Total Bilirubin 2.5 mg/dL (0.2-1.0) Aspartate Amino Transf (AST/SGOT) 153 U/L (15-37) Alanine Aminotransferase (ALT/SGPT) 167 U/L (14-59) Alkaline Phosphatase 180 U/L (46-116) Total Protein 7.2 g/dL (6.4-8.2) Albumin 2.3 g/dL (3.4-5.0) Albumin/Globulin Ratio 0.5 (1.0-1.7) Physical Exam HEENT: Neck Supple W Full Motion Chest: Symmetric Heart: irregularly irregular (AFIB, rate 125) Neurology: alert Assessment Assessment 1. Dyspnea; mulifactorial 2. ICM with LVEF of 20% 3. CAD s/p PCI to the LAD and diagonal in 2019 at [facility] 4. Mild troponin elevation; most probably type II, demand ischemia 5. Loculated pleural effusion, ? PNA 6. Hypertension; low end 7. ESRD 8. PAFIB. s/p recent flutter ablation at [facility]; on Amiodarone for rhythm maintenance. Converted back to AFIB this morning with intermittent RVR 9. Elevated LFTs 10. Coagulopathy: INr down to 4.4 Recommendations Continue metoprolol as BP allows. Dig IV x1 dose now Monitor LFTs Warfarin on hold with coagulopathy Fluid management via HD Awaiting COVID Justicifation of Admission Dx: Justifications for Admission: Justification of Admission Dx: Yes Chronic Renal Failure: Renail Failure JEANNA CANNON APRN Sep 06, 2019 12:23
--- NOTE | 2019-09-06 13:29 | PDOC ---
SUBJECTIVE ROS Stable OBJECTIVE Vital Signs Vital Signs Date Time Temp Pulse Resp B/P (MAP) Pulse Ox O2 Delivery O2 Flow Rate FiO2 09/06/19 13:06 118 09/06/19 11:16 96.8 18 100/61 (74) 98 Nasal Cannula 96.8 09/06/19 02:50 2.0 I & 0 Intake and Output 09/06/19 07:00 Intake Total 900 ml Output Total 0 ml Balance 900 ml Intake Oral 900 ml Output Urine Total 0 ml # Bowel Movements 1 PHYSICAL EXAM Physical Exam GENERAL: Propped up in bed, alert in NAD HEENT: Oral cavity, pharynx clear. NECK: Supple. LUNGS: Clear to auscultation bilaterally. HEART: S1, S2. ABDOMEN: Obese, soft, nontender EXTREMITIES: No clubbing, cyanosis or gross edema. RUE-AV fistula. SKIN: no signs of rash. She has a chronic scar in her right lower extremity. NEUROLOGIC: Alert, nonfocal. DIAGNOSIS/ASSESSMENT Assessment & Plan ESRD: On HD MWF Dialysis today as ordered , Leandro Gutierrez ANEMIA; Aranesp HypoTN: Defer to cardiology for further work-up and evaluation of hypotension Leukocytosis - better Questionable loculated right pleural effusion. 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 She is now a PUI COMMENT/RELEVANT DATA Meds Current Medications Medications (Trade) Dose Ordered Sig/Chinmay Start Time Stop Time Status Last Admin Dose Admin Acetaminophen/ Hydrocodone Bitart (Lortab 5/325) 1 tab PRN Q4HRS PRN 09/03/19 20:30 09/04/19 15:02 1 TAB Albumin Human 200 ml @ 200 mls/hr 1X PRN PRN 09/06/19 10:15 09/06/19 19:00 Albuterol Sulfate (Ventolin Hfa) 1 puff PRN Q4HRS PRN 09/06/19 02:45 09/06/19 03:57 1 PUFF Albuterol Sulfate (Ventolin Neb Soln) 2.5 mg PRN Q4HRS PRN 09/05/19 09:00 09/06/19 02:28 DC Albuterol/ Ipratropium (Duoneb) 3 ml RTQID 09/04/19 12:00 09/05/19 08:45 DC 09/04/19 20:11 3 ML Amiodarone HCl (Cordarone) 200 mg DAILY 09/04/19 13:00 09/06/19 13:06 200 MG Atorvastatin Calcium (Lipitor) 40 mg QHS 09/04/19 21:00 09/05/19 19:55 40 MG Clopidogrel Bisulfate (Plavix) 75 mg DAILY 09/04/19 13:30 09/06/19 10:10 75 MG Darbepoetin Jeremy (ARANESP for DIALYSIS PTS) 60 mcg Tovar 09/05/19 21:00 09/05/19 20:38 60 MCG Dextrose (Dextrose 50%-Water Syringe) 12.5 gm PRN Q15MIN PRN 09/04/19 13:45 Digoxin (Lanoxin) 250 mcg 1X ONCE 09/06/19 13:30 09/06/19 13:31 Diphenhydramine HCl (Benadryl) 25 mg 1X PRN PRN 09/04/19 09:15 09/05/19 09:14 DC Info (PHARMACY MONITORING -- do not chart) 1 each PRN DAILY PRN 09/06/19 10:15 UNV Insulin Human Lispro (HumaLOG) 0-5 UNITS TIDACHC 09/04/19 16:30 Lactobacillus Rhamnosus (Culturelle) 1 cap BID 09/05/19 21:00 09/06/19 10:09 1 CAP Latanoprost (Xalatan) 1 drop QHS 09/04/19 21:00 09/05/19 19:55 1 DROP Lidocaine (Lidoderm) 1 patch DAILY 09/04/19 13:30 09/06/19 10:10 1 PATCH Linagliptin (Tradjenta) 5 mg DAILY 09/04/19 14:00 09/06/19 10:09 5 MG Metoprolol Succinate (Toprol Xl) 25 mg DAILY 09/04/19 13:30 09/06/19 10:54 25 MG Montelukast Sodium (Singulair) 10 mg HS 09/04/19 21:00 09/05/19 19:55 10 MG Nitroglycerin (Nitrostat) 0.4 mg PRN Q5MIN PRN 09/04/19 13:15 Ondansetron HCl (Zofran) 4 mg PRN Q4HRS PRN 09/04/19 13:45 Pantoprazole Sodium (Protonix) 40 mg 1X 09/04/19 10:45 Phytonadione (Mephyton Oral Soln) 2.5 mg 1X ONCE 09/05/19 14:15 09/05/19 14:16 DC 09/05/19 15:09 2.5 MG Piperacillin Sod/ Tazobactam Sod (Zosyn Per Pharmacy) 1 each PRN DAILY PRN 09/03/19 17:00 Piperacillin Sod/ Tazobactam Sod 2.25 gm/Sodium Chloride 50 ml @ 100 mls/hr Q8HRS 09/04/19 06:00 09/06/19 13:07 100 MLS/HR Sevelamer Carbonate (Renvela) 800 mg TIDWMEALS 09/04/19 17:00 09/06/19 13:06 800 MG Sodium Chloride 1,000 ml @ 400 mls/hr Q2H30M PRN 09/06/19 10:00 09/06/19 21:00 Vancomycin HCl (Vanco Per Pharmacy) 1 each PRN DAILY PRN 09/03/19 17:00 09/06/19 12:12 1 EACH Vancomycin HCl (Vancomycin Random Level) 1 each 1X ONCE 09/08/19 06:00 09/08/19 06:01 Vancomycin HCl 500 mg/Sodium Chloride 100 ml @ 100 mls/hr QMWF 09/05/19 14:00 09/05/19 14:54 100 MLS/HR Vancomycin HCl 2 gm/Sodium Chloride 500 ml @ 250 mls/hr ONCE ONCE 09/03/19 17:30 09/03/19 19:29 DC 09/03/19 18:04 250 MLS/HR Vitamin B Complex/ Vitamin C (Jacquie-Debbi) 1 tab DAILY 09/04/19 13:30 09/06/19 10:09 1 TAB Warfarin Sodium (Coumadin Per Physician) 1 each PRN DAILY PRN 09/04/19 13:30 Cancel Warfarin Sodium (Coumadin) 2 mg DAILY 09/05/19 09:00 09/04/19 14:53 DC Lab Laboratory Tests Test 09/05/19 16:15 09/05/19 20:44 09/05/19 21:24 09/06/19 08:46 Glucose (Fingerstick) 88 mg/dL (70-99) 69 mg/dL (70-99) 89 mg/dL (70-99) 69 mg/dL (70-99) Test 09/06/19 09:00 09/06/19 12:18 White Blood Count 8.9 x10^3/uL (4.0-11.0) Red Blood Count 3.46 x10^6/uL (3.50-5.40) Hemoglobin 10.6 g/dL (12.0-15.5) Hematocrit 32.4 % (36.0-47.0) Mean Corpuscular Volume 94 fL (79-100) Mean Corpuscular Hemoglobin 31 pg (25-35) Mean Corpuscular Hemoglobin Concent 33 g/dL (31-37) Red Cell Distribution Width 23.8 % (11.5-14.5) Platelet Count 127 x10^3/uL (140-400) Neutrophils (%) (Auto) 73 % (31-73) Lymphocytes (%) (Auto) 12 % (24-48) Monocytes (%) (Auto) 12 % (0-9) Eosinophils (%) (Auto) 2 % (0-3) Basophils (%) (Auto) 1 % (0-3) Neutrophils # (Auto) 6.5 x10^3/uL (1.8-7.7) Lymphocytes # (Auto) 1.1 x10^3/uL (1.0-4.8) Monocytes # (Auto) 1.1 x10^3/uL (0.0-1.1) Eosinophils # (Auto) 0.2 x10^3/uL (0.0-0.7) Basophils # (Auto) 0.1 x10^3/uL (0.0-0.2) Prothrombin Time 42.9 SEC (11.7-14.0) Prothromb Time International Ratio 4.4 (0.8-1.1) Sodium Level 141 mmol/L (136-145) Potassium Level 4.2 mmol/L (3.5-5.1) Chloride Level 101 mmol/L (98-107) Carbon Dioxide Level 26 mmol/L (21-32) Anion Gap 14 (6-14) Blood Urea Nitrogen 43 mg/dL (7-20) Creatinine 9.6 mg/dL (0.6-1.0) Estimated GFR (Cockcroft-Gault) 5.0 BUN/Creatinine Ratio 4 (6-20) Glucose Level 71 mg/dL (70-99) Calcium Level 9.2 mg/dL (8.5-10.1) Total Bilirubin 2.5 mg/dL (0.2-1.0) Aspartate Amino Transf (AST/SGOT) 153 U/L (15-37) Alanine Aminotransferase (ALT/SGPT) 167 U/L (14-59) Alkaline Phosphatase 180 U/L (46-116) Total Protein 7.2 g/dL (6.4-8.2) Albumin 2.3 g/dL (3.4-5.0) Albumin/Globulin Ratio 0.5 (1.0-1.7) Glucose (Fingerstick) 103 mg/dL (70-99) Results All relevant outside records, renal labs, imaging studies, telemetry/EKG's were reviewed. Justicifation of Admission Dx: Justifications for Admission: Justification of Admission Dx: Yes Chronic Renal Failure: Renail Failure CODIE RIVERA MD Sep 06, 2019 13:29
[2019-09-06] MEDS ORDERED: DIGOXIN IV 500 MCG/2 ML AMPUL. IV ONE (13:30)
--- NOTE | 2019-09-06 16:06 | NUR ---
SW following. Spoke with RN and reviewed chart. Pt from home with plan to return. Pt on 2l 02. Pt COVID pending. Pt on IV abx, Vancomycin and Piperacillin. SW to continue to follow. Addendum: 09/06/19 at 1627 by NICHOLAS LEE Coordinated care with [facility] from [facility], , (fax). PT/OT to evaluate.
[2019-09-06] MEDS: VANCOMYCIN 500 MG in IV NORMAL SALINE 100ML 100 ML IV SCH (18:24)
--- NOTE | 2019-09-06 18:34 | PDOC ---
[employer] PROGRESS NOTE Chief Complaint Chief Complaint A/P: Supratherapeutic INR Loculated right pleural effusion ESRD Enlarged left thyroid Hypoglycemia DM2 - with hypoglycemia - stop sulfonylureas DVT/PE - no INR on admit, will cont coumadin and daily INR. History of Present Illness History of Present Illness Ms Lara is a 64 yo F w/ PMHx ESRD on HD, DVT with PE, DM2, HTN, HLD, anemia, carotid stenosis, atrial fibrillation who presents to ED after she went to hemodialysis and suddenly felt cold and felt like her sugar and blood pressure had dropped. She denied any fevers or chills or sweats, but felt weak. She was brought to [facility] and found to have a white count of 12.2 and at dialysis her glucose was 22 given D50. She was afebrile, but her blood pressure was in 80s/50s and glucose was 161. She underwent a chest x-ray, which showed a loculated small to moderate right pleural effusion, right mid basilar consolidations, atelectasis or pneumonia, this was confirmed on CT scan as a loculated right pleural effusion. Cultures were obtained. Started on vancomycin and Zosyn. Currently, she is sitting upright in bed. She is sitting in bed, glucose 59 this morning. She and her daughter note that the person that drives her to dialysis just tested positive for SARS-CoV-2 and she is requesting testing. Still with cough currently. She does note her felt machine mechanic had recommended she cut her glipizide in half or discontinue if she had further hypoglycemia. September 06, 2019 Patient seen and examined at bedside. Patient is doing well and leukocytosis has been improving. INR today is 4.5 and she was or has already received vitamin K. We are currently waiting for the INR to be less than 2 for thoracentesis to be done. PT OT has been ordered. We are still awaiting for COVID results to return. Continue empiric antibiotics per ID Continue metoprolol as BP allows. Dig IV x1 dose now Monitor LFTs Warfarin on hold with coagulopathy Fluid management via HD Awaiting COVID wait for INR to bwe < 2 for thoracentesis Vitals/I&O Vitals/I&O: Vital Signs Date Time Temp Pulse Resp B/P (MAP) Pulse Ox O2 Delivery O2 Flow Rate FiO2 7/13/20 13:06 118 09/06/19 11:16 96.8 18 100/61 (74) 98 Nasal Cannula 96.8 09/06/19 08:00 2.0 I & O 09/05/19 09/05/19 09/06/19 15:00 23:00 07:00 Intake Total 600 ml 300 ml Output Total 0 ml Balance 600 ml 300 ml Physical Exam Physical Exam: GENERAL: Propped up in bed, alert in NAD HEENT: Pupils equal and reactive. Normal conjunctivae. Oral cavity, pharynx clear. NECK: Supple. Good range of motion. LUNGS: Clear to auscultation bilaterally. HEART: S1, S2. ABDOMEN: Obese, soft, nontender with no guarding. EXTREMITIES: No clubbing, cyanosis or gross edema. RUE-AV fistula. SKIN: Warm to touch without signs of rash. She has a chronic scar in her right lower extremity. NEUROLOGIC: Alert, nonfocal. PIV ok General: Alert, Oriented X3, Cooperative Heart: Regular rate, Normal S1, Normal S2 Lungs: Other (Decreased breath sounds in the base) Abdomen: Normal bowel sounds, Soft Extremities: No clubbing, No cyanosis Skin: No rashes, No breakdown Labs Labs: Laboratory Tests Test 09/05/19 20:44 09/05/19 21:24 09/06/19 08:46 09/06/19 09:00 Glucose (Fingerstick) 69 mg/dL (70-99) 89 mg/dL (70-99) 69 mg/dL (70-99) White Blood Count 8.9 x10^3/uL (4.0-11.0) Red Blood Count 3.46 x10^6/uL (3.50-5.40) Hemoglobin 10.6 g/dL (12.0-15.5) Hematocrit 32.4 % (36.0-47.0) Mean Corpuscular Volume 94 fL (79-100) Mean Corpuscular Hemoglobin 31 pg (25-35) Mean Corpuscular Hemoglobin Concent 33 g/dL (31-37) Red Cell Distribution Width 23.8 % (11.5-14.5) Platelet Count 127 x10^3/uL (140-400) Neutrophils (%) (Auto) 73 % (31-73) Lymphocytes (%) (Auto) 12 % (24-48) Monocytes (%) (Auto) 12 % (0-9) Eosinophils (%) (Auto) 2 % (0-3) Basophils (%) (Auto) 1 % (0-3) Neutrophils # (Auto) 6.5 x10^3/uL (1.8-7.7) Lymphocytes # (Auto) 1.1 x10^3/uL (1.0-4.8) Monocytes # (Auto) 1.1 x10^3/uL (0.0-1.1) Eosinophils # (Auto) 0.2 x10^3/uL (0.0-0.7) Basophils # (Auto) 0.1 x10^3/uL (0.0-0.2) Prothrombin Time 42.9 SEC (11.7-14.0) Prothromb Time International Ratio 4.4 (0.8-1.1) Sodium Level 141 mmol/L (136-145) Potassium Level 4.2 mmol/L (3.5-5.1) Chloride Level 101 mmol/L (98-107) Carbon Dioxide Level 26 mmol/L (21-32) Anion Gap 14 (6-14) Blood Urea Nitrogen 43 mg/dL (7-20) Creatinine 9.6 mg/dL (0.6-1.0) Estimated GFR (Cockcroft-Gault) 5.0 BUN/Creatinine Ratio 4 (6-20) Glucose Level 71 mg/dL (70-99) Calcium Level 9.2 mg/dL (8.5-10.1) Total Bilirubin 2.5 mg/dL (0.2-1.0) Aspartate Amino Transf (AST/SGOT) 153 U/L (15-37) Alanine Aminotransferase (ALT/SGPT) 167 U/L (14-59) Alkaline Phosphatase 180 U/L (46-116) Total Protein 7.2 g/dL (6.4-8.2) Albumin 2.3 g/dL (3.4-5.0) Albumin/Globulin Ratio 0.5 (1.0-1.7) Test 09/06/19 12:18 09/06/19 17:26 Glucose (Fingerstick) 103 mg/dL (70-99) 74 mg/dL (70-99) Review of Systems Review of Systems: CONSTITUTIONAL: No fever or chills EYES: No recent changes SKIN: No rash or itching CARDIOVASCULAR: No chest pain, syncope, palpitations, or edema RESPIRATORY: No SOB or cough GASTROINTESTINAL: No nausea, vomiting or abdominal pain NEUROLOGICAL: No headaches or weakness ENDOCRINE: No cold or heat intolerance GENITOURINARY: No urgency or frequency of urination MUSCULOSKELETAL: No back pain or joint pain LYMPHATICS: No enlarged lymph nodes PSYCHIATRIC: No anxiety or depression Assessment and Plan Assessmemt and Plan Labs reviewed above Comment Review of Relevant I have reviewed the following items caroline (where applicable) has been applied. Medications: Current Medications Medications (Trade) Dose Ordered Sig/Chinmay Route PRN Reason Start Time Stop Time Status Last Admin Dose Admin Darbepoetin Jeremy (ARANESP for DIALYSIS PTS) 60 mcg Tovar SQ 09/05/19 21:00 09/05/19 20:38 Lactobacillus Rhamnosus (Culturelle) 1 cap BID PO 09/05/19 21:00 09/06/19 10:09 Albuterol Sulfate (Ventolin Hfa) 1 puff PRN Q4HRS PRN INH SHORTNESS OF BREATH 09/06/19 02:45 09/06/19 03:57 Albumin Human 200 ml @ 200 mls/hr 1X PRN PRN IV Hypotension 09/06/19 10:15 09/06/19 19:00 09/06/19 14:45 Justicifation of Admission Dx: Justifications for Admission: Justification of Admission Dx: Yes Chronic Renal Failure: Renail Failure DIVYA LINDER MD Sep 06, 2019 18:34
[2019-09-06 19:00] VITALS: BP 105/45
[2019-09-06] MEDS: LATANOPROST 0.005% OPHTH SOLUTION 2.5ML BOTTLE. OU SCH (21:00)
[2019-09-06] MEDS: MONTELUKAST SODIUM 10 MG TABLET. PO SCH (21:24)
[2019-09-06] MEDS: ATORVASTATIN CALCIUM 40 MG TABLET. PO SCH (21:24)
[2019-09-06 23:00] VITALS: BP 116/58
[2019-09-07] MEDS: PIPERACILLIN/TAZOBACTAM 2.25 GM in IV NORMAL SALINE 50ML 50 ML IV SCH ×3 (06:00→21:19)
[2019-09-07 07:25] VITALS: BP 97/63
[2019-09-07] MEDS: INSULIN LISPRO 300 UNITS/3 ML VIAL. SQ SCH ×4 (07:30→21:00)
[2019-09-07] MEDS: SEVELAMER CARBONATE 800 MG TABLET. PO SCH ×3 (08:00→17:00)
[2019-09-07] MEDS: AMIODARONE HCL 200 MG TABLET. PO SCH (09:00)
[2019-09-07] MEDS: METOPROLOL SUCC 24HR ER 25 MG TAB.ER.24H. PO SCH (09:00)
--- NOTE | 2019-09-07 09:16 | PDOC ---
PULMONARY PROGRESS NOTES Subjective Continued diarrhea, not more short of air Vitals Vital Signs Date Time Temp Pulse Resp B/P (MAP) Pulse Ox O2 Delivery O2 Flow Rate FiO2 09/06/19 23:00 98.8 83 18 116/58 (77) 99 98.8 09/06/19 20:00 Nasal Cannula 2.0 ROS: No Nausea, No Chest Pain, No Abdominal Pain, No Increase Cough Lungs: Other (Decreased breath sounds in the base) Cardiovascular: S1, S2 Abdomen: Soft Neuro Exam: Alert Extremities: No Edema Skin: Warm Labs Laboratory Tests Test 09/05/19 11:20 09/05/19 11:38 09/05/19 16:15 09/05/19 20:44 Coronavirus (PCR) Not detected (Not Detected) Glucose (Fingerstick) 77 mg/dL (70-99) 88 mg/dL (70-99) 69 mg/dL (70-99) Test 09/05/19 21:24 09/06/19 08:46 09/06/19 09:00 09/06/19 12:18 Glucose (Fingerstick) 89 mg/dL (70-99) 69 mg/dL (70-99) 103 mg/dL (70-99) White Blood Count 8.9 x10^3/uL (4.0-11.0) Red Blood Count 3.46 x10^6/uL (3.50-5.40) Hemoglobin 10.6 g/dL (12.0-15.5) Hematocrit 32.4 % (36.0-47.0) Mean Corpuscular Volume 94 fL (79-100) Mean Corpuscular Hemoglobin 31 pg (25-35) Mean Corpuscular Hemoglobin Concent 33 g/dL (31-37) Red Cell Distribution Width 23.8 % (11.5-14.5) Platelet Count 127 x10^3/uL (140-400) Neutrophils (%) (Auto) 73 % (31-73) Lymphocytes (%) (Auto) 12 % (24-48) Monocytes (%) (Auto) 12 % (0-9) Eosinophils (%) (Auto) 2 % (0-3) Basophils (%) (Auto) 1 % (0-3) Neutrophils # (Auto) 6.5 x10^3/uL (1.8-7.7) Lymphocytes # (Auto) 1.1 x10^3/uL (1.0-4.8) Monocytes # (Auto) 1.1 x10^3/uL (0.0-1.1) Eosinophils # (Auto) 0.2 x10^3/uL (0.0-0.7) Basophils # (Auto) 0.1 x10^3/uL (0.0-0.2) Prothrombin Time 42.9 SEC (11.7-14.0) Prothromb Time International Ratio 4.4 (0.8-1.1) Sodium Level 141 mmol/L (136-145) Potassium Level 4.2 mmol/L (3.5-5.1) Chloride Level 101 mmol/L (98-107) Carbon Dioxide Level 26 mmol/L (21-32) Anion Gap 14 (6-14) Blood Urea Nitrogen 43 mg/dL (7-20) Creatinine 9.6 mg/dL (0.6-1.0) Estimated GFR (Cockcroft-Gault) 5.0 BUN/Creatinine Ratio 4 (6-20) Glucose Level 71 mg/dL (70-99) Calcium Level 9.2 mg/dL (8.5-10.1) Total Bilirubin 2.5 mg/dL (0.2-1.0) Aspartate Amino Transf (AST/SGOT) 153 U/L (15-37) Alanine Aminotransferase (ALT/SGPT) 167 U/L (14-59) Alkaline Phosphatase 180 U/L (46-116) Total Protein 7.2 g/dL (6.4-8.2) Albumin 2.3 g/dL (3.4-5.0) Albumin/Globulin Ratio 0.5 (1.0-1.7) Test 09/06/19 17:26 09/06/19 22:09 09/07/19 07:15 09/07/19 08:55 Glucose (Fingerstick) 74 mg/dL (70-99) 115 mg/dL (70-99) 65 mg/dL (70-99) 86 mg/dL (70-99) Laboratory Tests Test 09/06/19 12:18 09/06/19 17:26 09/06/19 22:09 09/07/19 07:15 Glucose (Fingerstick) 103 mg/dL (70-99) 74 mg/dL (70-99) 115 mg/dL (70-99) 65 mg/dL (70-99) Test 09/07/19 08:55 Glucose (Fingerstick) 86 mg/dL (70-99) Medications Active Scripts Medications Dose Route/Sig Max Daily Dose Days Date Category Dose Instructions Femara (Letrozole) 2.5 Mg Tablet 1 Tab PO DAILY 30 09/04/19 Reported Lidocaine PATCH (Lidocaine) 1 Each Adh..patch 1 Each TP DAILY 09/04/19 Reported REMOVE AFTER 12 HOURS Nesina (Alogliptin Benzoate) 12.5 Mg Tablet 1 Tab PO DAILY 30 09/04/19 Reported Metoprolol Succinate ( Xl ) (Metoprolol Succinate) 25 Mg Tab.er.24h 25 Tab PO DAILY 09/04/19 Reported Montelukast Sodium Tablet (Montelukast Sodium) 10 Mg Tablet 10 Mg PO HS 09/04/19 Reported Warfarin Sodium 2 Mg Tablet 2 Mg PO DAILY 09/04/19 Reported Amiodarone Hcl 200 Mg Tablet 1 Tab PO DAILY 09/04/19 Reported Renvela (Sevelamer Carbonate) 800 Mg Tablet 800 Mg PO TIDWMEALS 02/03/19 Reported Clopidogrel (Clopidogrel Bisulfate) 75 Mg Tablet 75 Mg PO DAILY 02/03/19 Reported Nitrostat (Nitroglycerin) 0.4 Mg Tab.subl 0.4 Mg SL PRN Q5MIN PRN 20 10/14/18 Rx Latanoprost 2.5 Ml Drops 1 Drop EACHEYE QHS 10/13/18 Reported Symbicort 160-4.5 Mcg Inhaler (Budesonide/Formoterol Fumarate) 10.2 Gm Hfa.aer.ad 2 Puff IH BID 10/13/18 Reported Glipizide 5 Mg Tablet 2.5 Mg PO DAILY 01/14/18 Reported Jacquie-Debbi Tablet (Folic Acid/Vitamin B Comp W-C) 0.8 Mg Tablet 0.8 Mg PO DAILY 05/26/15 Reported Atorvastatin Calcium 40 Mg Tablet 1 Tab PO DAILY 07/29/[address] of chest, There is a large partly loculated right-sided pleural effusion with some adjacent compressive atelectasis. Impression . IMPRESSION: 1. Progressive dyspnea, multifactorial, possibly related to effusion, COPD exacerbation 2. Abnormal chest x-ray., Loculated effusion seen on CT chest 3. Recent history of pulmonary embolism. 4. Chronic obstructive pulmonary disease. 5. Leukocytosis, ? right loculated pleural effusion, ? pneumonia. 6. End-stage renal disease, on hemodialysis. 7. Hypotension, ? sepsis. 8. Diabetes mellitus. 9. Transaminitis, ? secondary to congestive heart failure versus others. 10. Coagulopathy 11. Possible pneumonia 12. SARS-CoV-2 negative Plan . INR elevated, INR 3.0 Will await for thoracentesis to be performed once INR is less than 2 Continue antibiotics per ID Oxygen supplementation Follow ID recommendations MELVIN ROBISON MD Sep 07, 2019 09:16
[2019-09-07 09:45] LABS: PROTHROMBIN TIME PATIENT 31.2 SEC (11.7-14.0)
--- NOTE | 2019-09-07 09:54 | PDOC ---
SUBJECTIVE ROS Stable , seen on HD, No complaints, OBJECTIVE Vital Signs Vital Signs Date Time Temp Pulse Resp B/P (MAP) Pulse Ox O2 Delivery O2 Flow Rate FiO2 09/07/19 07:25 98.1 80 20 97/63 (74) 96 Nasal Cannula 2.0 98.1 I & 0 Intake and Output 09/07/19 07:00 Intake Total 100 ml Balance 100 ml Intake Oral 100 ml # Bowel Movements 4 PHYSICAL EXAM Physical Exam GENERAL:NAD HEENT: Oral cavity, pharynx clear. NECK: Supple. LUNGS: Clear to auscultation bilaterally. HEART: S1, S2. ABDOMEN: Obese, soft, nontender EXTREMITIES: No clubbing, cyanosis or gross edema. RUE-AV fistula. SKIN: no rash. NEUROLOGIC: Alert, oriented DIAGNOSIS/ASSESSMENT Assessment & Plan ESRD: On HD MWF Did'nt complete treatment yesterday Seen on HD today , tolerating well, continue as ordered , Leandro Gutierrez ANEMIA; Aranesp HypoTN: PER cardiology Questionable loculated right pleural effusion. COVID not detected COMMENT/RELEVANT DATA Meds Current Medications Medications (Trade) Dose Ordered Sig/Chinmay Start Time Stop Time Status Last Admin Dose Admin Acetaminophen/ Hydrocodone Bitart (Lortab 5/325) 1 tab PRN Q4HRS PRN 09/03/19 20:30 09/04/19 15:02 1 TAB Albumin Human 200 ml @ 200 mls/hr 1X PRN PRN 09/06/19 10:15 09/06/19 19:00 DC 09/06/19 14:45 200 MLS/HR Albuterol Sulfate (Ventolin Hfa) 1 puff PRN Q4HRS PRN 09/06/19 02:45 09/06/19 03:57 1 PUFF Albuterol Sulfate (Ventolin Neb Soln) 2.5 mg PRN Q4HRS PRN 09/05/19 09:00 09/06/19 02:28 DC Albuterol/ Ipratropium (Duoneb) 3 ml RTQID 09/04/19 12:00 09/05/19 08:45 DC 09/04/19 20:11 3 ML Amiodarone HCl (Cordarone) 200 mg DAILY 09/04/19 13:00 09/06/19 13:06 200 MG Atorvastatin Calcium (Lipitor) 40 mg QHS 09/04/19 21:00 09/06/19 21:24 40 MG Clopidogrel Bisulfate (Plavix) 75 mg DAILY 09/04/19 13:30 09/06/19 10:10 75 MG Darbepoetin Jeremy (ARANESP for DIALYSIS PTS) 60 mcg Tovar 09/05/19 21:00 09/05/19 20:38 60 MCG Dextrose (Dextrose 50%-Water Syringe) 12.5 gm PRN Q15MIN PRN 09/04/19 13:45 Digoxin (Lanoxin) 250 mcg 1X ONCE 09/06/19 13:30 09/06/19 13:31 DC 09/06/19 18:33 250 MCG Diphenhydramine HCl (Benadryl) 25 mg 1X PRN PRN 09/04/19 09:15 09/05/19 09:14 DC Info (PHARMACY MONITORING -- do not chart) 1 each PRN DAILY PRN 09/06/19 10:15 UNV Insulin Human Lispro (HumaLOG) 0-5 UNITS TIDACHC 09/04/19 16:30 Lactobacillus Rhamnosus (Culturelle) 1 cap BID 09/05/19 21:00 09/06/19 10:09 1 CAP Latanoprost (Xalatan) 1 drop QHS 09/04/19 21:00 09/05/19 19:55 1 DROP Lidocaine (Lidoderm) 1 patch DAILY 09/04/19 13:30 09/06/19 10:10 1 PATCH Linagliptin (Tradjenta) 5 mg DAILY 09/04/19 14:00 09/06/19 10:09 5 MG Metoprolol Succinate (Toprol Xl) 25 mg DAILY 09/04/19 13:30 09/06/19 10:54 25 MG Montelukast Sodium (Singulair) 10 mg HS 09/04/19 21:00 09/06/19 21:24 10 MG Nitroglycerin (Nitrostat) 0.4 mg PRN Q5MIN PRN 09/04/19 13:15 Ondansetron HCl (Zofran) 4 mg PRN Q4HRS PRN 09/04/19 13:45 Pantoprazole Sodium (Protonix) 40 mg 1X 09/04/19 10:45 Phytonadione (Mephyton Oral Soln) 2.5 mg 1X ONCE 09/05/19 14:15 09/05/19 14:16 DC 09/05/19 15:09 2.5 MG Piperacillin Sod/ Tazobactam Sod (Zosyn Per Pharmacy) 1 each PRN DAILY PRN 09/03/19 17:00 Piperacillin Sod/ Tazobactam Sod 2.25 gm/Sodium Chloride 50 ml @ 100 mls/hr Q8HRS 09/04/19 06:00 09/06/19 21:25 100 MLS/HR Sevelamer Carbonate (Renvela) 800 mg TIDWMEALS 09/04/19 17:00 09/06/19 13:06 800 MG Sodium Chloride 1,000 ml @ 400 mls/hr Q2H30M PRN 09/06/19 10:00 09/06/19 21:00 DC Vancomycin HCl (Vanco Per Pharmacy) 1 each PRN DAILY PRN 09/03/19 17:00 09/06/19 12:12 1 EACH Vancomycin HCl (Vancomycin Random Level) 1 each 1X ONCE 09/08/19 06:00 09/08/19 06:01 Vancomycin HCl 500 mg/Sodium Chloride 100 ml @ 100 mls/hr QMWF 09/05/19 14:00 09/06/19 18:24 100 MLS/HR Vancomycin HCl 2 gm/Sodium Chloride 500 ml @ 250 mls/hr ONCE ONCE 09/03/19 17:30 09/03/19 19:29 DC 09/03/19 18:04 250 MLS/HR Vitamin B Complex/ Vitamin C (Jacquie-Debbi) 1 tab DAILY 09/04/19 13:30 09/06/19 10:09 1 TAB Warfarin Sodium (Coumadin Per Physician) 1 each PRN DAILY PRN 09/04/19 13:30 Cancel Warfarin Sodium (Coumadin) 2 mg DAILY 09/05/19 09:00 09/04/19 14:53 DC Lab Laboratory Tests Test 09/06/19 12:18 09/06/19 17:26 09/06/19 22:09 09/07/19 03:30 Glucose (Fingerstick) 103 mg/dL (70-99) 74 mg/dL (70-99) 115 mg/dL (70-99) Prothrombin Time 31.2 SEC (11.7-14.0) Prothromb Time International Ratio 3.0 (0.8-1.1) Test 09/07/19 07:15 09/07/19 08:55 Glucose (Fingerstick) 65 mg/dL (70-99) 86 mg/dL (70-99) Results All relevant outside records, renal labs, imaging studies, telemetry/EKG's were reviewed. Justicifation of Admission Dx: Justifications for Admission: Justification of Admission Dx: Yes Chronic Renal Failure: Renail Failure CODIE RIVERA MD Sep 07, 2019 09:54
--- NOTE | 2019-09-07 10:16 | PDOC ---
Infectious Disease Note Subjective Subjective Some aches and cough + loose stools 3L O2 No fevers Denies SOA/CP/N/V/abd cramps Vital Sign Vital Signs Vital Signs Date Time Temp Pulse Resp B/P (MAP) Pulse Ox O2 Delivery O2 Flow Rate FiO2 09/07/19 07:25 98.1 80 20 97/63 (74) 96 Nasal Cannula 2.0 98.1 Physical Exam PHYSICAL EXAM GENERAL: Propped up in bed, alert in NAD HEENT: Pupils equal and reactive. Normal conjunctivae. Oral cavity, pharynx clear. NECK: Supple. Good range of motion. LUNGS: Clear to auscultation bilaterally. HEART: S1, S2. ABDOMEN: Obese, soft, nontender with no guarding. EXTREMITIES: No clubbing, cyanosis or gross edema. RUE-AV fistula. SKIN: Warm to touch without signs of rash. She has a chronic scar in her right lower extremity. NEUROLOGIC: Alert, nonfocal. PIV ok Labs Lab Laboratory Tests Test 09/06/19 12:18 09/06/19 17:26 09/06/19 22:09 09/07/19 03:30 Glucose (Fingerstick) 103 mg/dL (70-99) 74 mg/dL (70-99) 115 mg/dL (70-99) Prothrombin Time 31.2 SEC (11.7-14.0) Prothromb Time International Ratio 3.0 (0.8-1.1) Test 09/07/19 07:15 09/07/19 08:55 Glucose (Fingerstick) 65 mg/dL (70-99) 86 mg/dL (70-99) Objective Assessment Leukocytosis - better Chronic kidney disease, on hemodialysis. loculated right pleural effusion. Hypertension. Diabetes. Transaminitis, questionable secondary to congestion. Loose stools Plan Plan of Care Cont Vanc and Zosyn COVID pending Monitor labs Maintain aspiration precautions Feeling better. Awaiting Thoracentesis FARIBA ZAMORA MD Sep 07, 2019 10:16
--- NOTE | 2019-09-07 13:18 | PDOC ---
JEANNA CANNON JACKLYN 09/07/19 1318: CARDIO Progress Notes Date and Time Date of Service 09/07/19 Time of Evaluation 1315 Subjective Subjective: No Chest Pain, No shortness of breath, No Palpitations Vitals Vitals Vital Signs Date Time Temp Pulse Resp B/P (MAP) Pulse Ox O2 Delivery O2 Flow Rate FiO2 09/07/19 07:25 98.1 80 20 97/63 (74) 96 Nasal Cannula 2.0 98.1 Weight Weight [ ] Input and Output Intake and Output Intake and Output 09/07/19 07:00 Intake Total 100 ml Balance 100 ml Intake Oral 100 ml # Bowel Movements 4 Laboratory Labs Laboratory Tests Test 09/06/19 17:26 09/06/19 22:09 09/07/19 03:30 09/07/19 07:15 Glucose (Fingerstick) 74 mg/dL (70-99) 115 mg/dL (70-99) 65 mg/dL (70-99) Prothrombin Time 31.2 SEC (11.7-14.0) Prothromb Time International Ratio 3.0 (0.8-1.1) Test 09/07/19 08:55 09/07/19 11:34 Glucose (Fingerstick) 86 mg/dL (70-99) 76 mg/dL (70-99) Physical Exam HEENT: Neck Supple W Full Motion Chest: Symmetric LUNGS: Other (diminished bases) Heart: RRR (SR) Abdomen: Soft N/T Extremities: Other (trace bilateral LE edema ) Neurology: alert, oriented, follow commands, other (drowsy) Assessment Assessment 1. Dyspnea; mulifactorial 2. ICM with LVEF of 20%. Appears compensated 3. CAD s/p PCI to the LAD and diagonal in 2019 at [facility] 4. Mild troponin elevation; most probably type II, demand ischemia 5. Loculated pleural effusion, ? PNA. thoracentesis planned when INR down 6. Hypertension; low end 7. ESRD on HD 8. PAFIB. s/p recent flutter ablation at [facility]; on Amiodarone for rhythm maintenance. Converted back to SR and has been maintaining. 9. Elevated LFTs 10. Coagulopathy: INR down to 3.0 Recommendations Continue metoprolol for rate control Monitor LFTs Warfarin on hold with coagulopathy. Also for thoracentesis. Fluid management via HD Supportive care Justicifation of Admission Dx: Justifications for Admission: Justification of Admission Dx: Yes Chronic Renal Failure: Renail Failure TALHA RON MD 09/07/19 1718: CARDIO Progress Notes Plan Plan Pt. seen and examined. Agree with above MATHEMATICIAN note. No new CV issues. Needs fluid removal. Agree with thoracentesis. Supportive care. Thanks JEANNA CANNON APRN Sep 07, 2019 13:18 TALHA RON MD Sep 07, 2019 17:18
[2019-09-07] MEDS: LINAGLIPTIN 5 MG TABLET PO SCH (13:41)
[2019-09-07] MEDS: FOLIC/VIT B COMP W-C (RENAL) TABLET. PO SCH (13:41)
[2019-09-07] MEDS: CLOPIDOGREL BISULFATE 75 MG TABLET PO SCH (13:41)
[2019-09-07] MEDS: LACTOBACILLUS RHAMNOSUS GG 1 CAPSULE. PO SCH ×2 (13:41→21:17)
[2019-09-07] MEDS: LIDOCAINE (700MG/PATCH) PATCH. TP SCH (13:51)
[2019-09-07] MEDS: VANCOMYCIN PER PHARMACY MC PRN (14:13)
[2019-09-07 15:11] VITALS: BP 100/47
--- NOTE | 2019-09-07 15:12 | NUR ---
SW following. Spoke with RN and CM and reviewed chart. Coordinated care with Dr. Lamb and pt not ready for discharge. Spoke with therapy and reviewed PT/OT notes and the recommendation is for SNU. Spoke with pt would would like a SNU referral to [facility]. JESUS phoned and faxed referral to Deisy at [facility], , (fax). Completed Patient Choice of Vendor form. Pt on 2l 02. Pt Covid negative. Pt on IV abx, Vancomycin and Piperacillin. SW to coordinate care with Seble from [facility], , (fax) again today. SW to continue following.
--- NOTE | 2019-09-07 16:25 | PDOC ---
[employer] PROGRESS NOTE Chief Complaint Chief Complaint Cough and generalized weakness History of Present Illness History of Present Illness Ms Lara is a 64 yo F w/ PMHx ESRD on HD, DVT with PE, DM2, HTN, HLD, anemia, carotid stenosis, atrial fibrillation who presents to ED after she went to hemodialysis and suddenly felt cold and felt like her sugar and blood pressure had dropped. She denied any fevers or chills or sweats, but felt weak. She was brought to [facility] and found to have a white count of 12.2 and at dialysis her glucose was 22 given D50. She was afebrile, but her blood pressure was in 80s/50s and glucose was 161. She underwent a chest x-ray, which showed a loculated small to moderate right pleural effusion, right mid basilar consolidations, atelectasis or pneumonia, this was confirmed on CT scan as a loculated right pleural effusion. Cultures were obtained. Started on vancomycin and Zosyn. Currently, she is sitting upright in bed. She is sitting in bed, glucose 59 this morning. She and her daughter note that the person that drives her to dialysis just tested positive for SARS-CoV-2 and she is requesting testing. Still with cough currently. She does note her practicing md anesthesiologist had recommended she cut her glipizide in half or discontinue if she had further hypoglycemia. 09/07/2019 Patient seen and examined during dialysis. Patient is well and has currently has no complaints. Tolerating diet and hemodialysis without any hemodynamic instability. INR today is 3.0. September 06, 2019 Patient seen and examined at bedside. Patient is doing well and leukocytosis has been improving. INR today is 4.5 and she was or has already received vitamin K. We are currently waiting for the INR to be less than 2 for thoracentesis to be done. PT OT has been ordered. We are still awaiting for C OVID results to return. Continue empiric antibiotics per ID Continue metoprolol as BP allows. Dig IV x1 dose now Monitor LFTs Warfarin on hold with coagulopathy Fluid management via HD Awaiting COVID wait for INR to bwe < 2 for thoracentesis Vitals/I&O Vitals/I&O: Vital Signs Date Time Temp Pulse Resp B/P (MAP) Pulse Ox O2 Delivery O2 Flow Rate FiO2 09/07/19 15:11 97.9 61 18 100/47 (64) 98 Nasal Cannula 2.0 97.9 I & O 09/06/19 09/06/19 09/07/19 15:00 23:00 07:00 Intake Total 100 ml Balance 100 ml Physical Exam Physical Exam: GENERAL: Propped up in bed, alert in NAD HEENT: Pupils equal and reactive. Normal conjunctivae. Oral cavity, pharynx clear. NECK: Supple. Good range of motion. LUNGS: Clear to auscultation bilaterally. HEART: S1, S2. ABDOMEN: Obese, soft, nontender with no guarding. EXTREMITIES: No clubbing, cyanosis or gross edema. RUE-AV fistula. SKIN: Warm to touch without signs of rash. She has a chronic scar in her right lower extremity. NEUROLOGIC: Alert, nonfocal. PIV ok General: Alert, Oriented X3, Cooperative Heart: Regular rate, Normal S1, Normal S2 Lungs: Other (Decreased breath sounds in the base) Abdomen: Normal bowel sounds, Soft Extremities: No clubbing, No cyanosis Skin: No rashes, No breakdown Labs Labs: Laboratory Tests Test 09/06/19 17:26 09/06/19 22:09 09/07/19 03:30 09/07/19 07:15 Glucose (Fingerstick) 74 mg/dL (70-99) 115 mg/dL (70-99) 65 mg/dL (70-99) Prothrombin Time 31.2 SEC (11.7-14.0) Prothromb Time International Ratio 3.0 (0.8-1.1) Test 09/07/19 08:55 09/07/19 11:34 09/07/19 13:16 09/07/19 16:10 Glucose (Fingerstick) 86 mg/dL (70-99) 76 mg/dL (70-99) 95 mg/dL (70-99) 105 mg/dL (70-99) Review of Systems Review of Systems: CONSTITUIONAL: Denies weight loss, fever and chills. HEENT: Denies changes in vision and hearing. RESPIRATORY: Denies SOB and cough. CV: Denies palpitations and CP. GI: Denies abdominal pain, nausea, vomiting and diarrhea. : Denies dysuria and urinary frequency. MSK: Denies myalgia and joint pain. SKIN: Denies rash and pruritus. NEUROLOGICAL: Denies headache and syncope. PSYCHIATRIC: Denies recent changes in mood. Denies anxiety and depression. Assessment and Plan Assessmemt and Plan Supratherapeutic INR Loculated right pleural effusion ESRD Enlarged left thyroid Hypoglycemia DM2 - with hypoglycemia - stop sulfonylureas DVT/PE - no INR on admit, will cont coumadin and daily INR. COVID investigation with negative result We are currently waiting for the INR to be less than 2 for thoracentesis to be done. PT OT has been ordered. Continue empiric antibiotics per ID Continue metoprolol as BP allows. Dig IV x1 dose now Monitor LFTs Warfarin on hold with coagulopathy Fluid management via HD Awaiting COVID wait for INR to bwe < 2 for thoracentesis Comment Review of Relevant I have reviewed the following items caroline (where applicable) has been applied. Justicifation of Admission Dx: Justifications for Admission: Justification of Admission Dx: Yes Chronic Renal Failure: Renail Failure DIVYA LINDER MD Sep 07, 2019 16:25
[2019-09-07 19:26] VITALS: BP 99/62
[2019-09-07] MEDS: LATANOPROST 0.005% OPHTH SOLUTION 2.5ML BOTTLE. OU SCH (21:17)
[2019-09-07] MEDS: ATORVASTATIN CALCIUM 40 MG TABLET. PO SCH (21:17)
[2019-09-07] MEDS: MONTELUKAST SODIUM 10 MG TABLET. PO SCH (21:17)
[2019-09-07 22:37] VITALS: BP 110/57
[2019-09-08] VITALS (8 sets, daily range): BP systolic 90–152; BP diastolic 32–57
[2019-09-08] MEDS: PIPERACILLIN/TAZOBACTAM 2.25 GM in IV NORMAL SALINE 50ML 50 ML IV SCH ×3 (05:37→21:24)
[2019-09-08] MEDS ORDERED: VANCOMYCIN RANDOM LEVEL. MC ONE (06:00)
[2019-09-08] MEDS: INSULIN LISPRO 300 UNITS/3 ML VIAL. SQ SCH ×4 (07:30→21:00)
[2019-09-08] MEDS: LIDOCAINE (700MG/PATCH) PATCH. TP SCH (09:00)
[2019-09-08] MEDS: LACTOBACILLUS RHAMNOSUS GG 1 CAPSULE. PO SCH ×2 (09:27→21:14)
[2019-09-08] MEDS: SEVELAMER CARBONATE 800 MG TABLET. PO SCH ×3 (09:27→17:32)
[2019-09-08] MEDS: LINAGLIPTIN 5 MG TABLET PO SCH (09:27)
[2019-09-08] MEDS: FOLIC/VIT B COMP W-C (RENAL) TABLET. PO SCH (09:27)
[2019-09-08] MEDS: METOPROLOL SUCC 24HR ER 25 MG TAB.ER.24H. PO SCH (09:28)
[2019-09-08] MEDS: CLOPIDOGREL BISULFATE 75 MG TABLET PO SCH (09:28)
[2019-09-08] MEDS: AMIODARONE HCL 200 MG TABLET. PO SCH (09:28)
--- NOTE | 2019-09-08 09:29 | PDOC ---
PULMONARY PROGRESS NOTES Subjective No new symptoms no chest pain no pressure no nausea vomiting Continued diarrhea, not more short of air Vitals Vital Signs Date Time Temp Pulse Resp B/P (MAP) Pulse Ox O2 Delivery O2 Flow Rate FiO2 09/08/19 07:36 98.6 73 16 152/49 (83) 94 Room Air 98.6 09/07/19 22:37 2.0 ROS: No Nausea, No Chest Pain, No Abdominal Pain, No Increase Cough Lungs: Other (Decreased breath sounds in the base) Cardiovascular: S1, S2 Abdomen: Soft Neuro Exam: Alert Extremities: No Edema Skin: Warm Labs Laboratory Tests Test 09/06/19 12:18 09/06/19 17:26 09/06/19 22:09 09/07/19 03:30 Glucose (Fingerstick) 103 mg/dL (70-99) 74 mg/dL (70-99) 115 mg/dL (70-99) Prothrombin Time 31.2 SEC (11.7-14.0) Prothromb Time International Ratio 3.0 (0.8-1.1) Test 09/07/19 07:15 09/07/19 08:55 09/07/19 11:34 09/07/19 13:16 Glucose (Fingerstick) 65 mg/dL (70-99) 86 mg/dL (70-99) 76 mg/dL (70-99) 95 mg/dL (70-99) Test 09/07/19 16:10 09/07/19 20:25 09/08/19 05:30 09/08/19 07:37 Glucose (Fingerstick) 105 mg/dL (70-99) 96 mg/dL (70-99) 73 mg/dL (70-99) Random Vancomycin Level 13.8 mcg/mL Laboratory Tests Test 09/07/19 11:34 09/07/19 13:16 09/07/19 16:10 09/07/19 20:25 Glucose (Fingerstick) 76 mg/dL (70-99) 95 mg/dL (70-99) 105 mg/dL (70-99) 96 mg/dL (70-99) Test 09/08/19 05:30 09/08/19 07:37 Random Vancomycin Level 13.8 mcg/mL Glucose (Fingerstick) 73 mg/dL (70-99) Medications Active Scripts Medications Dose Route/Sig Max Daily Dose Days Date Category Dose Instructions Femara (Letrozole) 2.5 Mg Tablet 1 Tab PO DAILY 30 09/04/19 Reported Lidocaine PATCH (Lidocaine) 1 Each Adh..patch 1 Each TP DAILY 09/04/19 Reported REMOVE AFTER 12 HOURS Nesina (Alogliptin Benzoate) 12.5 Mg Tablet 1 Tab PO DAILY 30 09/04/19 Reported Metoprolol Succinate ( Xl ) (Metoprolol Succinate) 25 Mg Tab.er.24h 25 Tab PO DAILY 09/04/19 Reported Montelukast Sodium Tablet (Montelukast Sodium) 10 Mg Tablet 10 Mg PO HS 09/04/19 Reported Warfarin Sodium 2 Mg Tablet 2 Mg PO DAILY 09/04/19 Reported Amiodarone Hcl 200 Mg Tablet 1 Tab PO DAILY 09/04/19 Reported Renvela (Sevelamer Carbonate) 800 Mg Tablet 800 Mg PO TIDWMEALS 02/03/19 Reported Clopidogrel (Clopidogrel Bisulfate) 75 Mg Tablet 75 Mg PO DAILY 02/03/19 Reported Nitrostat (Nitroglycerin) 0.4 Mg Tab.subl 0.4 Mg SL PRN Q5MIN PRN 20 10/14/18 Rx Latanoprost 2.5 Ml Drops 1 Drop EACHEYE QHS 10/13/18 Reported Symbicort 160-4.5 Mcg Inhaler (Budesonide/Formoterol Fumarate) 10.2 Gm Hfa.aer.ad 2 Puff IH BID 10/13/18 Reported Glipizide 5 Mg Tablet 2.5 Mg PO DAILY 01/14/18 Reported Jacquie-Debbi Tablet (Folic Acid/Vitamin B Comp W-C) 0.8 Mg Tablet 0.8 Mg PO DAILY 05/26/15 Reported Atorvastatin Calcium 40 Mg Tablet 1 Tab PO DAILY 07/29/[address] of chest, There is a large partly loculated right-sided pleural effusion with some adjacent compressive atelectasis. Impression . IMPRESSION: 1. Progressive dyspnea, multifactorial, possibly related to effusion, COPD exacerbation 2. Abnormal chest x-ray., Loculated effusion seen on CT chest 3. Recent history of pulmonary embolism. 4. Chronic obstructive pulmonary disease. 5. Leukocytosis, ? right loculated pleural effusion, ? pneumonia. 6. End-stage renal disease, on hemodialysis. 7. Hypotension, ? sepsis. 8. Diabetes mellitus. 9. Transaminitis, ? secondary to congestive heart failure versus others. 10. Coagulopathy 11. Possible pneumonia 12. SARS-CoV-2 negative Plan . Repeat INR today Antibiotics per ID INR elevated, INR 3.0, yes Will await for thoracentesis to be performed once INR is less than 2 Oxygen supplementation Follow ID recommendations MELVIN ROBISON MD Sep 08, 2019 09:29
[2019-09-08] MEDS ORDERED: IV NORMAL SALINE 1000ML BAG 1,000 ML IV PRN ×2 (10:49)
[2019-09-08] MEDS ORDERED: DIALYSIS PATIENT. MC PRN ×2 (11:00)
[2019-09-08] MEDS ORDERED: ALBUMIN HUMAN 25% 200 ML IV PRN (11:00)
--- NOTE | 2019-09-08 11:00 | PDOC ---
Infectious Disease Note Subjective Subjective feeling ok, no complaints ROS ROS no n/v/d/sob Vital Sign Vital Signs Vital Signs Date Time Temp Pulse Resp B/P (MAP) Pulse Ox O2 Delivery O2 Flow Rate FiO2 09/08/19 09:28 73 152/49 09/08/19 07:36 98.6 16 94 Room Air 98.6 09/07/19 22:37 2.0 Physical Exam PHYSICAL EXAM GENERAL: Propped up in bed, alert in NAD HEENT: Pupils equal and reactive. Normal conjunctivae. Oral cavity, pharynx c lear. NECK: Supple. Good range of motion. LUNGS: Clear to auscultation bilaterally. HEART: S1, S2. ABDOMEN: Obese, soft, nontender with no guarding. EXTREMITIES: No clubbing, cyanosis or gross edema. RUE-AV fistula. SKIN: Warm to touch without signs of rash. She has a chronic scar in her right lower extremity. NEUROLOGIC: Alert, nonfocal. PIV ok Labs Lab Laboratory Tests Test 09/07/19 11:34 09/07/19 13:16 09/07/19 16:10 09/07/19 20:25 Glucose (Fingerstick) 76 mg/dL (70-99) 95 mg/dL (70-99) 105 mg/dL (70-99) 96 mg/dL (70-99) Test 09/08/19 05:30 09/08/19 07:37 09/08/19 10:50 Random Vancomycin Level 13.8 mcg/mL Glucose (Fingerstick) 73 mg/dL (70-99) 69 mg/dL (70-99) Objective Assessment Leukocytosis - better Chronic kidney disease, on hemodialysis. loculated right pleural effusion. Hypertension. Diabetes. Transaminitis, questionable secondary to congestion. Loose stools Plan Plan of Care Cont Vanc and Zosyn Monitor labs Maintain aspiration precautions Feeling better. Awaiting Thoracentesis FARIBA ZAMORA MD Sep 08, 2019 11:00
--- NOTE | 2019-09-08 11:12 | PDOC ---
SUBJECTIVE ROS Stable no complaints OBJECTIVE Vital Signs Vital Signs Date Time Temp Pulse Resp B/P (MAP) Pulse Ox O2 Delivery O2 Flow Rate FiO2 09/08/19 09:28 73 152/49 09/08/19 07:36 98.6 16 94 Room Air 98.6 09/07/19 22:37 2.0 I & 0 l Intake and Output 09/08/19 07:00 Intake Total 300 ml Balance 300 ml Intake Oral 300 ml # Bowel Movements 1 PHYSICAL EXAM Physical Exam GENERAL:NAD HEENT: Oral cavity, pharynx clear. NECK: Supple. LUNGS: Clear to auscultation bilaterally. HEART: S1, S2. ABDOMEN: Obese, soft, nontender EXTREMITIES: No clubbing, cyanosis or gross edema. RUE-AV fistula. SKIN: no rash. NEUROLOGIC: Alert, oriented DIAGNOSIS/ASSESSMENT Assessment & Plan ESRD: On HD MWF Dialysis today per her schedule , continue as ordered , Leandro Gutierrez ANEMIA; Aranesp HypoTN: PER cardiology Loculated right pleural effusion- per Pulm COVID not detected COMMENT/RELEVANT DATA Meds Current Medications Medications (Trade) Dose Ordered Sig/Chinmay Start Time Stop Time Status Last Admin Dose Admin Acetaminophen/ Hydrocodone Bitart (Lortab 5/325) 1 tab PRN Q4HRS PRN 09/03/19 20:30 09/04/19 15:02 1 TAB Albumin Human 200 ml @ 200 mls/hr 1X PRN PRN 09/08/19 11:00 09/08/19 16:59 Albuterol Sulfate (Ventolin Hfa) 1 puff PRN Q4HRS PRN 09/06/19 02:45 09/06/19 03:57 1 PUFF Albuterol Sulfate (Ventolin Neb Soln) 2.5 mg PRN Q4HRS PRN 09/05/19 09:00 09/06/19 02:28 DC Albuterol/ Ipratropium (Duoneb) 3 ml RTQID 09/04/19 12:00 09/05/19 08:45 DC 09/04/19 20:11 3 ML Amiodarone HCl (Cordarone) 200 mg DAILY 09/04/19 13:00 09/08/19 09:28 200 MG Atorvastatin Calcium (Lipitor) 40 mg QHS 09/04/19 21:00 09/07/19 21:17 40 MG Clopidogrel Bisulfate (Plavix) 75 mg DAILY 09/04/19 13:30 09/08/19 09:28 75 MG Darbepoetin Jeremy (ARANESP for DIALYSIS PTS) 60 mcg Tovar 09/05/19 21:00 09/05/19 20:38 60 MCG Dextrose (Dextrose 50%-Water Syringe) 12.5 gm PRN Q15MIN PRN 09/04/19 13:45 Digoxin (Lanoxin) 250 mcg 1X ONCE 09/06/19 13:30 09/06/19 13:31 DC 09/06/19 18:33 250 MCG Diphenhydramine HCl (Benadryl) 25 mg 1X PRN PRN 09/04/19 09:15 09/05/19 09:14 DC Info (PHARMACY MONITORING -- do not chart) 1 each PRN DAILY PRN 09/08/19 11:00 UNV Insulin Human Lispro (HumaLOG) 0-5 UNITS TIDACHC 09/04/19 16:30 Lactobacillus Rhamnosus (Culturelle) 1 cap BID 09/05/19 21:00 09/08/19 09:27 1 CAP Latanoprost (Xalatan) 1 drop QHS 09/04/19 21:00 09/07/19 21:17 1 DROP Lidocaine (Lidoderm) 1 patch DAILY 09/04/19 13:30 09/07/19 13:51 1 PATCH Linagliptin (Tradjenta) 5 mg DAILY 09/04/19 14:00 09/08/19 09:27 5 MG Metoprolol Succinate (Toprol Xl) 25 mg DAILY 09/04/19 13:30 09/08/19 09:28 25 MG Montelukast Sodium (Singulair) 10 mg HS 09/04/19 21:00 09/07/19 21:17 10 MG Nitroglycerin (Nitrostat) 0.4 mg PRN Q5MIN PRN 09/04/19 13:15 Ondansetron HCl (Zofran) 4 mg PRN Q4HRS PRN 09/04/19 13:45 Pantoprazole Sodium (Protonix) 40 mg 1X 09/04/19 10:45 09/08/19 09:01 DC Phytonadione (Mephyton Oral Soln) 2.5 mg 1X ONCE 09/05/19 14:15 09/05/19 14:16 DC 09/05/19 15:09 2.5 MG Piperacillin Sod/ Tazobactam Sod (Zosyn Per Pharmacy) 1 each PRN DAILY PRN 09/03/19 17:00 Piperacillin Sod/ Tazobactam Sod 2.25 gm/Sodium Chloride 50 ml @ 100 mls/hr Q8HRS 09/04/19 06:00 09/08/19 05:37 100 MLS/HR Sevelamer Carbonate (Renvela) 800 mg TIDWMEALS 09/04/19 17:00 09/08/19 09:27 800 MG Sodium Chloride 1,000 ml @ 400 mls/hr Q2H30M PRN 09/08/19 10:49 09/08/19 22:48 Vancomycin HCl (Vanco Per Pharmacy) 1 each PRN DAILY PRN 09/03/19 17:00 09/07/19 14:13 1 EACH Vancomycin HCl (Vancomycin Random Level) 1 each 1X ONCE 09/08/19 06:00 09/08/19 06:01 DC Vancomycin HCl 500 mg/Sodium Chloride 100 ml @ 100 mls/hr QMWF 09/05/19 14:00 09/06/19 18:24 100 MLS/HR Vancomycin HCl 2 gm/Sodium Chloride 500 ml @ 250 mls/hr ONCE ONCE 09/03/19 17:30 09/03/19 19:29 DC 09/03/19 18:04 250 MLS/HR Vitamin B Complex/ Vitamin C (Jacquie-Debbi) 1 tab DAILY 09/04/19 13:30 09/08/19 09:27 1 TAB Warfarin Sodium (Coumadin Per Physician) 1 each PRN DAILY PRN 09/04/19 13:30 Cancel Warfarin Sodium (Coumadin) 2 mg DAILY 09/05/19 09:00 09/04/19 14:53 DC Lab Laboratory Tests Test 09/07/19 11:34 09/07/19 13:16 09/07/19 16:10 09/07/19 20:25 Glucose (Fingerstick) 76 mg/dL (70-99) 95 mg/dL (70-99) 105 mg/dL (70-99) 96 mg/dL (70-99) Test 09/08/19 05:30 09/08/19 07:37 09/08/19 10:50 Random Vancomycin Level 13.8 mcg/mL Glucose (Fingerstick) 73 mg/dL (70-99) 69 mg/dL (70-99) Results All relevant outside records, renal labs, imaging studies, telemetry/EKG's were reviewed. Justicifation of Admission Dx: Justifications for Admission: Justification of Admission Dx: Yes Chronic Renal Failure: Renail Failure CODIE RIVERA MD Sep 08, 2019 11:12
[2019-09-08] MEDS: VANCOMYCIN PER PHARMACY MC PRN (11:37)
--- NOTE | 2019-09-08 11:41 | NUR ---
Pharmacy Vancomycin Dosing Note S:Consulted to monitor and dose vancomycin started 09/03/19. O:ACE GUPTA is a 64 year old F with Pneumonia . Height: 5 feet, 4 inches Weight: 102.7 kg [place] Body Weight: 54.70 Adjusted Body Weight: 73.90 Dosing Weight: Actual Other Antibiotics: ZOSYN LABS: Last BUN: 43 Last Creatinine: 9.6 Creatinine Clearance: DIALYSIS mL/min Last WBC: 8.9 Last Procalcitonin: Tmax (past 24 hours): 98.7 Microbiology: - I/O: 300/ Drug Levels: Last Random level: 13.8 on 09/08/19 at 0530 Last dose given 09/05/19 at 1454 Vancomycin Dosing: Loading Dose: 2000 mg x1 Dosing Weight: Actual Target Trough: 15-20 A: Based on trough of 13.8: P: 1. Continue Vancomycin 500 mg IV after each dialysis. 2. Follow up levels as needed. 3. Pharmacy will continue to monitor, follow and adjust therapy as needed. Sidney Contreras [facility], 09/08/19 1147
[2019-09-08 13:28] LABS: PROTHROMBIN TIME PATIENT 21.7 SEC (11.7-14.0)
[2019-09-08 13:59] LABS: CALCIUM 8.9 mg/dL (8.5-10.1); CREATININE 5.8 mg/dL (0.6-1.0); GFR 8.9
[2019-09-08] MEDS ORDERED: LIDOCAINE WITH 8.4% SOD BICARB 3 ML DISP.SYRIN. ONE ×2 (15:06→16:56)
--- NOTE | 2019-09-08 16:32 | PDOC ---
[employer] PROGRESS NOTE Chief Complaint Chief Complaint Supratherapeutic INR improved now at 1.9 Loculated right pleural effusion pending thoracentesis ESRD Enlarged left thyroid Hypoglycemia DM2 - with hypoglycemia - stop sulfonylureas DVT/PE - COVID investigation with negative result INR within therapeutic levels Repeat INR tomorrow morning consider heparin bridging to warfarin PT OT has been ordered. Continue empiric antibiotics per ID Continue metoprolol as BP allows. Monitor LFTs Warfarin on hold with coagulopathy Fluid management via HD Follow-up on pleural fluid evaluation after thoracentesis History of Present Illness History of Present Illness Ms Lara is a 64 yo F w/ PMHx ESRD on HD, DVT with PE, DM2, HTN, HLD, anemia, carotid stenosis, atrial fibrillation who presents to ED after she went to hemodialysis and suddenly felt cold and felt like her sugar and blood pressure had dropped. She denied any fevers or chills or sweats, but felt weak. She was brought to [facility] and found to have a white count of 12.2 and at dialysis her glucose was 22 given D50. She was afebrile, but her blood pressure was in 80s/50s and glucose was 161. She underwent a chest x-ray, which showed a loculated small to moderate right pleural effusion, right mid basilar consolidations, atelectasis or pneumonia, this was confirmed on CT scan as a loculated right pleural effusion. Cultures were obtained. Started on vancomycin and Zosyn. Currently, she is sitting upright in bed. She is sitting in bed, glucose 59 this morning. She and her daughter note that the person that drives her to dialysis just tested positive for SARS-CoV-2 and she is requesting testing. Still with cough currently. She does note her players assistant had recommended she cut her glipizide in half or discontinue if she had further hypo glycemia. 09/08/2019 Patient seen and examined bedside today. Patient is resting comfortably at this time. Today's INR returned at 1.9 patient was called down for chest tube placement. We will await for pleural fluid results to direct management. 09/07/2019 Patient seen and examined during dialysis. Patient is well and has currently has no complaints. Tolerating diet and hemodialysis without any hemodynamic instability. INR today is 3.0. September 06, 2019 Patient seen and examined at bedside. Patient is doing well and leukocytosis has been improving. INR today is 4.5 and she was or has already received vitamin K. We are currently waiting for the INR to be less than 2 for thoracentesis to be done. PT OT has been ordered. We are still awaiting for CO VID results to return. Continue empiric antibiotics per ID Continue metoprolol as BP allows. Dig IV x1 dose now Monitor LFTs Warfarin on hold with coagulopathy Fluid management via HD Awaiting COVID wait for INR to bwe < 2 for thoracentesis Vitals/I&O Vitals/I&O: Vital Signs Date Time Temp Pulse Resp B/P (MAP) Pulse Ox O2 Delivery O2 Flow Rate FiO2 09/08/19 11:33 98.5 74 18 95/55 (68) 96 Room Air 98.5 09/08/19 08:00 2.0 I & O 09/07/19 09/07/19 09/08/19 15:00 23:00 07:00 Intake Total 250 ml 50 ml Balance 250 ml 50 ml Physical Exam Physical Exam: GENERAL: Propped up in bed, alert in NAD HEENT: Pupils equal and reactive. Normal conjunctivae. Oral cavity, pharynx clear. NECK: Supple. Good range of motion. LUNGS: Clear to auscultation bilaterally. HEART: S1, S2. ABDOMEN: Obese, soft, nontender with no guarding. EXTREMITIES: No clubbing, cyanosis or gross edema. RUE-AV fistula. SKIN: Warm to touch without signs of rash. She has a chronic scar in her right lower extremity. NEUROLOGIC: Alert, nonfocal. PIV ok General: Alert, Oriented X3, Cooperative Heart: Regular rate, Normal S1, Normal S2 Lungs: Other (Decreased breath sounds in the base) Abdomen: Normal bowel sounds, Soft Extremities: No clubbing, No cyanosis Skin: No rashes, No breakdown Labs Labs: Laboratory Tests Test 09/07/19 20:25 09/08/19 05:30 09/08/19 07:37 09/08/19 10:50 Glucose (Fingerstick) 96 mg/dL (70-99) 73 mg/dL (70-99) 69 mg/dL (70-99) Prothrombin Time 21.7 SEC (11.7-14.0) Prothromb Time International Ratio 1.9 (0.8-1.1) Sodium Level 141 mmol/L (136-145) Potassium Level 4.0 mmol/L (3.5-5.1) Chloride Level 100 mmol/L (98-107) Carbon Dioxide Level 30 mmol/L (21-32) Anion Gap 11 (6-14) Blood Urea Nitrogen 19 mg/dL (7-20) Creatinine 5.8 mg/dL (0.6-1.0) Estimated GFR (Cockcroft-Gault) 8.9 Glucose Level 72 mg/dL (70-99) Calcium Level 8.9 mg/dL (8.5-10.1) Random Vancomycin Level 13.8 mcg/mL Review of Systems Review of Systems: CONSTITUIONAL: Denies weight loss, fever and chills. HEENT: Denies changes in vision and hearing. RESPIRATORY: Denies SOB and cough. CV: Denies palpitations and CP. GI: Denies abdominal pain, nausea, vomiting and diarrhea. : Denies dysuria and urinary frequency. MSK: Denies myalgia and joint pain. SKIN: Denies rash and pruritus. NEUROLOGICAL: Denies headache and syncope. PSYCHIATRIC: Denies recent changes in mood. Denies anxiety and depression. Comment Review of Relevant I have reviewed the following items caroline (where applicable) has been applied. Justicifation of Admission Dx: Justifications for Admission: Justification of Admission Dx: Yes Chronic Renal Failure: Renail Failure DIVYA LINDER MD Sep 08, 2019 16:32
--- NOTE | 2019-09-08 16:44 | NUR ---
SW following. Spoke with RN and CM. Pt is not ready for discharge today per Dr. Lamb. Spoke with Deisy at [facility] and pt has been accepted for SNU when stable. SW to continue following.
[2019-09-08] MEDS ORDERED: LIDOCAINE WITH 8.4% SOD BICARB 3 ML DISP.SYRIN. INJ ONE (17:15)
[2019-09-08] MEDS: VANCOMYCIN 500 MG in IV NORMAL SALINE 100ML 100 ML IV SCH (17:32)
[2019-09-08 19:17] LABS: BF CLARITY TURBID; BF COLOR RED; BF SOURCE PLEURAL
[2019-09-08 19:18] LABS: BF MON % 85 %; BF PMN % 15 %; BF RBC COUNT 35536 /cmm (Not Established); BF WBC COUNT 455 /cmm (Not Established); PH,BODY FLUID 7.26
[2019-09-08] MEDS: ATORVASTATIN CALCIUM 40 MG TABLET. PO SCH (21:14)
[2019-09-08] MEDS: MONTELUKAST SODIUM 10 MG TABLET. PO SCH (21:14)
[2019-09-08] MEDS: LATANOPROST 0.005% OPHTH SOLUTION 2.5ML BOTTLE. OU SCH (21:14)
[2019-09-09 03:45] VITALS: BP 104/50
[2019-09-09] MEDS: PIPERACILLIN/TAZOBACTAM 2.25 GM in IV NORMAL SALINE 50ML 50 ML IV SCH (06:15)
[2019-09-09 07:10] VITALS: BP 108/53
[2019-09-09] MEDS: INSULIN LISPRO 300 UNITS/3 ML VIAL. SQ SCH ×2 (07:30→11:30)
[2019-09-09] MEDS: SEVELAMER CARBONATE 800 MG TABLET. PO SCH ×2 (08:40→11:57)
[2019-09-09] MEDS: LACTOBACILLUS RHAMNOSUS GG 1 CAPSULE. PO SCH (08:40)
[2019-09-09] MEDS: FOLIC/VIT B COMP W-C (RENAL) TABLET. PO SCH (08:40)
[2019-09-09] MEDS: CLOPIDOGREL BISULFATE 75 MG TABLET PO SCH (08:40)
[2019-09-09] MEDS: LINAGLIPTIN 5 MG TABLET PO SCH (08:41)
[2019-09-09] MEDS: LIDOCAINE (700MG/PATCH) PATCH. TP SCH (08:41)
[2019-09-09] MEDS: METOPROLOL SUCC 24HR ER 25 MG TAB.ER.24H. PO SCH (08:41)
[2019-09-09] MEDS: AMIODARONE HCL 200 MG TABLET. PO SCH (08:41)
--- NOTE | 2019-09-09 09:03 | PDOC ---
Infectious Disease Note Subjective Subjective feeling ok, no complaints ROS ROS No nausea vomiting diarrhea chest pain Vital Sign Vital Signs Vital Signs Date Time Temp Pulse Resp B/P (MAP) Pulse Ox O2 Delivery O2 Flow Rate FiO2 09/09/19 08:41 69 108/53 09/09/19 07:10 97.9 18 98 Nasal Cannula 2.0 97.9 Physical Exam PHYSICAL EXAM GENERAL: Propped up in bed, alert in NAD HEENT: Pupils equal and reactive. Normal conjunctivae. Oral cavity, pharynx clear. NECK: Supple. Good range of motion. LUNGS: Clear to auscultation bilaterally. HEART: S1, S2. ABDOMEN: Obese, soft, nontender with no guarding. EXTREMITIES: No clubbing, cyanosis or gross edema. RUE-AV fistula. SKIN: Warm to touch without signs of rash. She has a chronic scar in her right lower extremity. NEUROLOGIC: Alert, nonfocal. PIV ok Labs Lab Laboratory Tests Test 09/08/19 10:50 09/08/19 17:10 09/08/19 17:31 09/08/19 17:50 Glucose (Fingerstick) 69 mg/dL (70-99) 56 mg/dL (70-99) 105 mg/dL (70-99) Body Fluid Source Pleural Body Fluid Color Red Body Fluid Clarity Turbid Body Fluid pH 7.26 Body Fluid Nucleated Cells 455 /cmm (Not Established) Body Fluid Mononuclear WBCs (%) 85 % Body Fluid Polymorphonuclear Cells 15 % Body Fluid Total RBCs Counted 08738 /cmm (Not Test 09/08/19 21:32 09/09/19 07:36 Glucose (Fingerstick) 110 mg/dL (70-99) 80 mg/dL (70-99) Objective Assessment Leukocytosis - better Chronic kidney disease, on hemodialysis. loculated right pleural effusion. Status post thoracentesis Hypertension. Diabetes. Transaminitis, questionable secondary to congestion. Loose stools Plan Plan of Care Change IV antibiotics to p.o. doxycycline and Augmentin Cultures are pending Patient is going to [facility] RN was instructed to give signout for SNF, to follow-up on the cultures Can follow-up with me in 2 weeks if needed FARIBA ZAMORA MD Sep 09, 2019 09:03
--- NOTE | 2019-09-09 09:54 | PDOC ---
SUBJECTIVE ROS Stable no complaints, eating breakfast S/P Thoracentesis on 09/07 OBJECTIVE Vital Signs Vital Signs Date Time Temp Pulse Resp B/P (MAP) Pulse Ox O2 Delivery O2 Flow Rate FiO2 09/09/19 08:41 69 108/53 09/09/19 07:10 97.9 18 98 Nasal Cannula 2.0 97.9 I & 0 Intake and Output 09/09/19 07:00 Intake Total 250 ml Output Total 500 ml Balance -250 ml Intake Oral 100 ml IV Total 150 ml Chest Tube Drainage Total 500 ml # Bowel Movements 3 PHYSICAL EXAM Physical Exam GENERAL:NAD HEENT: Oral cavity, pharynx clear. NECK: Supple. LUNGS: Clear to auscultation bilaterally. HEART: S1, S2. ABDOMEN: Obese, soft, nontender EXTREMITIES: No clubbing, cyanosis or gross edema. RUE-AV fistula. SKIN: no rash. NEUROLOGIC: Alert, oriented DIAGNOSIS/ASSESSMENT Assessment & Plan ESRD: On HD MWF No indication of HD today ANEMIA; Aranesp HypoTN: PER cardiology Loculated right pleural effusion- s/p Thoracentesis 09/07 COVID not detected COMMENT/RELEVANT DATA Meds Current Medications Medications (Trade) Dose Ordered Sig/Chinmay Start Time Stop Time Status Last Admin Dose Admin Acetaminophen/ Hydrocodone Bitart (Lortab 5/325) 1 tab PRN Q4HRS PRN 09/03/19 20:30 09/04/19 15:02 1 TAB Albumin Human 200 ml @ 200 mls/hr 1X PRN PRN 09/08/19 11:00 09/08/19 16:59 DC Albuterol Sulfate (Ventolin Hfa) 1 puff PRN Q4HRS PRN 09/06/19 02:45 09/06/19 03:57 1 PUFF Albuterol Sulfate (Ventolin Neb Soln) 2.5 mg PRN Q4HRS PRN 09/05/19 09:00 09/06/19 02:28 DC Albuterol/ Ipratropium (Duoneb) 3 ml RTQID 09/04/19 12:00 09/05/19 08:45 DC 09/04/19 20:11 3 ML Amiodarone HCl (Cordarone) 200 mg DAILY 09/04/19 13:00 09/09/19 08:41 200 MG Atorvastatin Calcium (Lipitor) 40 mg QHS 09/04/19 21:00 09/08/19 21:14 40 MG Clopidogrel Bisulfate (Plavix) 75 mg DAILY 09/04/19 13:30 09/09/19 08:40 75 MG Darbepoetin Jeremy (ARANESP for DIALYSIS PTS) 60 mcg Otvar 09/05/19 21:00 09/05/19 20:38 60 MCG Dextrose (Dextrose 50%-Water Syringe) 12.5 gm PRN Q15MIN PRN 09/04/19 13:45 09/08/19 17:36 12.5 GM Digoxin (Lanoxin) 250 mcg 1X ONCE 09/06/19 13:30 09/06/19 13:31 DC 09/06/19 18:33 250 MCG Diphenhydramine HCl (Benadryl) 25 mg 1X PRN PRN 09/04/19 09:15 09/05/19 09:14 DC Info (PHARMACY MONITORING -- do not chart) 1 each PRN DAILY PRN 09/08/19 11:00 UNV Insulin Human Lispro (HumaLOG) 0-5 UNITS TIDACHC 09/04/19 16:30 Lactobacillus Rhamnosus (Culturelle) 1 cap BID 09/05/19 21:00 09/09/19 08:40 1 CAP Latanoprost (Xalatan) 1 drop QHS 09/04/19 21:00 09/08/19 21:14 1 DROP Lidocaine (Lidoderm) 1 patch DAILY 09/04/19 13:30 09/07/19 13:51 1 PATCH Lidocaine HCl (Buffered Lidocaine 1%) 3 ml 1X ONCE 09/08/19 17:15 09/08/19 17:16 DC 09/08/19 17:07 4 ML Linagliptin (Tradjenta) 5 mg DAILY 09/04/19 14:00 09/09/19 08:41 5 MG Metoprolol Succinate (Toprol Xl) 25 mg DAILY 09/04/19 13:30 09/09/19 08:41 25 MG Montelukast Sodium (Singulair) 10 mg HS 09/04/19 21:00 09/08/19 21:14 10 MG Nitroglycerin (Nitrostat) 0.4 mg PRN Q5MIN PRN 09/04/19 13:15 Ondansetron HCl (Zofran) 4 mg PRN Q4HRS PRN 09/04/19 13:45 Pantoprazole Sodium (Protonix) 40 mg 1X 09/04/19 10:45 09/08/19 09:01 DC Phytonadione (Mephyton Oral Soln) 2.5 mg 1X ONCE 09/05/19 14:15 09/05/19 14:16 DC 09/05/19 15:09 2.5 MG Piperacillin Sod/ Tazobactam Sod (Zosyn Per Pharmacy) 1 each PRN DAILY PRN 09/03/19 17:00 Piperacillin Sod/ Tazobactam Sod 2.25 gm/Sodium Chloride 50 ml @ 100 mls/hr Q8HRS 09/04/19 06:00 09/09/19 06:15 100 MLS/HR Sevelamer Carbonate (Renvela) 800 mg TIDWMEALS 09/04/19 17:00 09/09/19 08:40 800 MG Sodium Chloride 1,000 ml @ 400 mls/hr Q2H30M PRN 09/08/19 10:49 09/08/19 22:48 DC Vancomycin HCl (Vanco Per Pharmacy) 1 each PRN DAILY PRN 09/03/19 17:00 09/08/19 11:37 1 EACH Vancomycin HCl (Vancomycin Random Level) 1 each 1X ONCE 09/08/19 06:00 09/08/19 06:01 DC 09/08/19 06:00 1 EACH Vancomycin HCl 500 mg/Sodium Chloride 100 ml @ 100 mls/hr QMWF 09/05/19 14:00 09/08/19 17:32 100 MLS/HR Vancomycin HCl 2 gm/Sodium Chloride 500 ml @ 250 mls/hr ONCE ONCE 09/03/19 17:30 09/03/19 19:29 DC 09/03/19 18:04 250 MLS/HR Vitamin B Complex/ Vitamin C (Jacquie-Debbi) 1 tab DAILY 09/04/19 13:30 09/09/19 08:40 1 TAB Warfarin Sodium (Coumadin Per Physician) 1 each PRN DAILY PRN 09/04/19 13:30 Cancel Warfarin Sodium (Coumadin) 2 mg DAILY 09/05/19 09:00 09/04/19 14:53 DC Lab Laboratory Tests Test 09/08/19 10:50 09/08/19 17:10 09/08/19 17:31 09/08/19 17:50 Glucose (Fingerstick) 69 mg/dL (70-99) 56 mg/dL (70-99) 105 mg/dL (70-99) Body Fluid Source Pleural Body Fluid Color Red Body Fluid Clarity Turbid Body Fluid pH 7.26 Body Fluid Nucleated Cells 455 /cmm (Not Established) Body Fluid Mononuclear WBCs (%) 85 % Body Fluid Polymorphonuclear Cells 15 % Body Fluid Total RBCs Counted 50525 /cmm (Not Test 09/08/19 21:32 09/09/19 07:36 Glucose (Fingerstick) 110 mg/dL (70-99) 80 mg/dL (70-99) Results All relevant outside records, renal labs, imaging studies, telemetry/EKG's were reviewed. Justicifation of Admission Dx: Justifications for Admission: Justification of Admission Dx: Yes Chronic Renal Failure: Renail Failure CODIE RIVERA MD Sep 09, 2019 09:54
--- NOTE | 2019-09-09 10:30 | PDOC ---
PULMONARY PROGRESS NOTES Subjective No new symptoms no chest pain no pressure no nausea vomiting Continued diarrhea, not more short of air Vitals Vital Signs Date Time Temp Pulse Resp B/P (MAP) Pulse Ox O2 Delivery O2 Flow Rate FiO2 09/09/19 08:41 69 108/53 09/09/19 07:10 97.9 18 98 Nasal Cannula 2.0 97.9 ROS: No Nausea, No Chest Pain, No Abdominal Pain, No Increase Cough Lungs: Other (Decreased breath sounds in the base) Cardiovascular: S1, S2 Abdomen: Soft Neuro Exam: Alert Extremities: No Edema Skin: Warm Labs Laboratory Tests Test 09/07/19 11:34 09/07/19 13:16 09/07/19 16:10 09/07/19 20:25 Glucose (Fingerstick) 76 mg/dL (70-99) 95 mg/dL (70-99) 105 mg/dL (70-99) 96 mg/dL (70-99) Test 09/08/19 05:30 09/08/19 07:37 09/08/19 10:50 09/08/19 17:10 Prothrombin Time 21.7 SEC (11.7-14.0) Prothromb Time International Ratio 1.9 (0.8-1.1) Sodium Level 141 mmol/L (136-145) Potassium Level 4.0 mmol/L (3.5-5.1) Chloride Level 100 mmol/L (98-107) Carbon Dioxide Level 30 mmol/L (21-32) Anion Gap 11 (6-14) Blood Urea Nitrogen 19 mg/dL (7-20) Creatinine 5.8 mg/dL (0.6-1.0) Estimated GFR (Cockcroft-Gault) 8.9 Glucose Level 72 mg/dL (70-99) Calcium Level 8.9 mg/dL (8.5-10.1) Random Vancomycin Level 13.8 mcg/mL Glucose (Fingerstick) 73 mg/dL (70-99) 69 mg/dL (70-99) Body Fluid Source Pleural Body Fluid Color Red Body Fluid Clarity Turbid Body Fluid pH 7.26 Body Fluid Nucleated Cells 455 /cmm (Not Established) Body Fluid Mononuclear WBCs (%) 85 % Body Fluid Polymorphonuclear Cells 15 % Body Fluid Total RBCs Counted 55080 /cmm (Not Test 09/08/19 17:31 09/08/19 17:50 09/08/19 21:32 09/09/19 07:36 Glucose (Fingerstick) 56 mg/dL (70-99) 105 mg/dL (70-99) 110 mg/dL (70-99) 80 mg/dL (70-99) Laboratory Tests Test 09/08/19 10:50 09/08/19 17:10 09/08/19 17:31 09/08/19 17:50 Glucose (Fingerstick) 69 mg/dL (70-99) 56 mg/dL (70-99) 105 mg/dL (70-99) Body Fluid Source Pleural Body Fluid Color Red Body Fluid Clarity Turbid Body Fluid pH 7.26 Body Fluid Nucleated Cells 455 /cmm (Not Established) Body Fluid Mononuclear WBCs (%) 85 % Body Fluid Polymorphonuclear Cells 15 % Body Fluid Total RBCs Counted 38208 /cmm (Not Test 09/08/19 21:32 09/09/19 07:36 Glucose (Fingerstick) 110 mg/dL (70-99) 80 mg/dL (70-99) Medications Active Scripts Medications Dose Route/Sig Max Daily Dose Days Date Category Dose Instructions Femara (Letrozole) 2.5 Mg Tablet 1 Tab PO DAILY 30 09/04/19 Reported Lidocaine PATCH (Lidocaine) 1 Each Adh..patch 1 Each TP DAILY 09/04/19 Reported REMOVE AFTER 12 HOURS Nesina (Alogliptin Benzoate) 12.5 Mg Tablet 1 Tab PO DAILY 30 09/04/19 Reported Metoprolol Succinate ( Xl ) (Metoprolol Succinate) 25 Mg Tab.er.24h 25 Tab PO DAILY 09/04/19 Reported Montelukast Sodium Tablet (Montelukast Sodium) 10 Mg Tablet 10 Mg PO HS 09/04/19 Reported Warfarin Sodium 2 Mg Tablet 2 Mg PO DAILY 09/04/19 Reported Amiodarone Hcl 200 Mg Tablet 1 Tab PO DAILY 09/04/19 Reported Renvela (Sevelamer Carbonate) 800 Mg Tablet 800 Mg PO TIDWMEALS 02/03/19 Reported Clopidogrel (Clopidogrel Bisulfate) 75 Mg Tablet 75 Mg PO DAILY 02/03/19 Reported Nitrostat (Nitroglycerin) 0.4 Mg Tab.subl 0.4 Mg SL PRN Q5MIN PRN 20 10/14/18 Rx Latanoprost 2.5 Ml Drops 1 Drop EACHEYE QHS 10/13/18 Reported Symbicort 160-4.5 Mcg Inhaler (Budesonide/Formoterol Fumarate) 10.2 Gm Hfa.aer.ad 2 Puff IH BID 10/13/18 Reported Glipizide 5 Mg Tablet 2.5 Mg PO DAILY 01/14/18 Reported Jacquie-Debbi Tablet (Folic Acid/Vitamin B Comp W-C) 0.8 Mg Tablet 0.8 Mg PO DAILY 05/26/15 Reported Atorvastatin Calcium 40 Mg Tablet 1 Tab PO DAILY 07/29/[address] of chest, There is a large partly loculated right-sided pleural effusion with some adjacent compressive atelectasis. Impression . IMPRESSION: 1. Progressive dyspnea, multifactorial, possibly related to effusion, COPD exacerbation 2. Abnormal chest x-ray., Loculated effusion seen on CT chest 3. Recent history of pulmonary embolism. 4. Chronic obstructive pulmonary disease. 5. Leukocytosis, ? right loculated pleural effusion, ? pneumonia. 6. End-stage renal disease, on hemodialysis. 7. Hypotension, ? sepsis. 8. Diabetes mellitus. 9. Transaminitis, ? secondary to congestive heart failure versus others. 10. Coagulopathy 11. Possible pneumonia 12. SARS-CoV-2 negative Plan . Repeat INR today Antibiotics per ID INR elevated, INR 3.0, yes Will await for thoracentesis to be performed once INR is less than 2 Oxygen supplementation Follow ID recommendations MELVIN ROBISON MD Sep 09, 2019 10:30
[2019-09-09] MEDS: VANCOMYCIN PER PHARMACY MC PRN (11:06)
--- NOTE | 2019-09-09 11:10 | NUR ---
Pharmacy Vancomycin Dosing Note S:Consulted to monitor and dose vancomycin started 09/03/19. O:ACE GUPTA is a 64 year old F with Pneumonia . Height: 5 feet, 4 inches Weight: 97.0 kg [place] Body Weight: 54.70 Adjusted Body Weight: 71.62 Dosing Weight: Actual Other Antibiotics: ZOSYN LABS: Last BUN: 19 Last Creatinine: 5.8 Creatinine Clearance: DIALYSIS mL/min Last WBC: 8.9 Last Procalcitonin: Tmax (past 24 hours): 98.7 Microbiology: 09/08 THORACENTESIS FLUID PENDING I/O: 250/500 Drug Levels: Last Random level: 13.8 on 09/08/19 at 0530 Last dose given 09/08/19 at 1454 Vancomycin Dosing: Loading Dose: 2000 mg x1 Dosing Weight: Actual Target Trough: 15-20 A: Based on: INDICATION, INTRADIALYTIC LEVEL, P: 1. CHANGE DOSE TO Vancomycin 750 mg IV POST HD MWF 2. Follow up Random level NEEDED. 3. Pharmacy will continue to monitor, follow and adjust therapy as needed. NAZANIN ALMEIDA RPH, 09/09/19 [id number]
[2019-09-09 11:17] VITALS: BP 94/46
--- NOTE | 2019-09-09 12:06 | NUR ---
SW following. Reviewed chart and spoke with RN and CM. Spoke with Dr. Lamb and pt to discharge today to [facility], ; [phone] (fax). Discharge orders phoned and faxed to Deisy with [facility]. RN to call report. Pt to transport via [facility] transport at 1400 with 2l 02. Pt notified that she needs to take her inhaler and eye drops with her to SNU per Deisy. Pt on oral Doxycycline and Augmentin but cultures are pending so Deisy notified that SNU will need to call for results in a few days. Pt does out-patient dialysis on MWF at 6:30am at [facility], , (fax) and Deisy will arrange transport to these appointments. Packet printed and ready to be sent with patient. No further SW needs at this time.
[2019-09-09] MEDS ORDERED: AMOX1TAB10 PO (13:56)
[2019-09-09] MEDS ORDERED: DOXY100T PO (13:56)
--- NOTE | 2019-09-09 14:00 | SNU/HH DC ---
DISCHARGE ORDERS DISCHARGE INFORMATION: DISCHARGE DATE: Sep 09, 2019 FINAL DIAGNOSIS Pneumonia and right pleural effusion Supratherapeutic INR CONDITION ON DISCHARGE: Stable CODE STATUS: Code Status: Full [facility]: SNF STAY <30 DAYS: Yes POST DISCHARGE ORDERS: ACTIVITY ORDERS: No restrictions WEIGHT BEARING STATUS: No restrictions BATHING ORDERS: Shower-keep dressing dry, No Tub Bath until see Dr. BARAJAS AFTER DISCHARGE: Renal WOUND/INCISION CARE: Change dressing CHECKS AFTER DISCHARGE: CHECKS AFTER DISCHARGE: Check blood press - daily, Check blood sugar, ac/hs, Weigh Yourself Daily FOLLOW-UP: PHYSICIAN FOLLOW-UP: Follow-up with pulmonary in October ADDITIONAL FOLLOW-UP: Follow-up with infectious disease LAB ORDERS FOR FOLLOW-UP: INR daily while on warfarin ANTICOAGULATION F/U NEEDED: Patient will need an INR check Additional Instructions: Would recommend patient to consider other alternatives for anticoagulation TREATMENT/EQUIPMENT ORDERS: ADAPTIVE EQUIPMENT NEEDED: None RESPIRATORY EQUIPMENT NEEDED: Oxygen Physical Therapy For: Evalulation/Treatment Occupational Therapy For: Evaluation/Treatment Speech Language Pathology For: Evaluation/Treatment DISCHARGE MEDICATIONS: Home Meds Active Scripts Nitroglycerin (NITROSTAT) 0.4 Mg Tab.subl, 0.4 MG SL PRN Q5MIN PRN for CHEST PAIN for 20 Days, #9 TAB Prov:ALEA SWIFT MD 10/14/18 Reported Medications Letrozole (FEMARA) 2.5 Mg Tablet, 1 TAB PO DAILY for hormone for 30 Days, #30 TAB 0 Refills 09/04/19 Lidocaine (Lidocaine PATCH ) 1 Each Adh..patch, 1 EACH TP DAILY for FOR LOCAL PAIN, PATCH REMOVE AFTER 12 HOURS 09/04/19 Alogliptin Benzoate (NESINA) 12.5 Mg Tablet, 1 TAB PO DAILY for diabetes for 30 Days, #30 TAB 0 Refills 09/04/19 Metoprolol Succinate (METOPROLOL SUCCINATE ( XL )) 25 Mg Tab.er.24h, 25 TAB PO DAILY for htn, #30 TAB 5 Refills 09/04/19 Montelukast Sodium (MONTELUKAST SODIUM TABLET ) 10 Mg Tablet, 10 MG PO HS for FOR ASTHMA, TAB 0 Refills 09/04/19 Warfarin Sodium (WARFARIN SODIUM) 2 Mg Tablet, 2 MG PO DAILY for blood clots, #30 TAB 09/04/19 Amiodarone Hcl (AMIODARONE HCL) 200 Mg Tablet, 1 TAB PO DAILY for htn, #90 TAB 1 Refill 09/04/19 Sevelamer Carbonate (RENVELA) 800 Mg Tablet, 800 MG PO TIDWMEALS for , TAB 02/03/19 Clopidogrel Bisulfate (CLOPIDOGREL) 75 Mg Tablet, 75 MG PO DAILY for TO PREVENT BLOOD CLOTS, #30 TAB 0 Refills 02/03/19 Latanoprost (LATANOPROST) 2.5 Ml Drops, 1 DROP EACHEYE QHS for eyes, #7.5 ML 3 Refills 10/13/18 Budesonide/Formoterol Fumarate (SYMBICORT 160-4.5 MCG INHALER) 10.2 Gm Hfa.aer.ad, 2 PUFF IH BID for breathing, #10.6 GM 3 Refills 10/13/18 Glipizide (GLIPIZIDE) 5 Mg Tablet, 2.5 MG PO DAILY for DIABETES, TAB 01/14/18 Folic Acid/Vitamin B Comp W-C ([place]-SARAH TABLET) 0.8 Mg Tablet, 0.8 MG PO DAILY 05/26/15 Atorvastatin Calcium (ATORVASTATIN CALCIUM) 40 Mg Tablet, 1 TAB PO DAILY, #30 TAB 5 Refills 07/29/14 Discontinued Reported Medications Losartan Potassium (LOSARTAN POTASSIUM) 50 Mg Tablet, 50 MG PO DAILY for HYPERTENSION, TAB 10/30/18 Cinacalcet Hcl (SENSIPAR) 30 Mg Tablet, 30 MG PO DAILY for dialysis, TAB 10/13/18 Difluprednate (DUREZOL) 5 Ml Drops, 5 ML OP TID for cataracts, DROP 10/13/18 Bromfenac Sodium (Bromsite) 5 Ml Drops, 5 ML OP DAILY for cataracts, DROP 10/13/18 Aspirin (ASPIRIN) 81 Mg Tab.chew, 1 TAB PO DAILY for UNKOWN, #30 TAB 3 Refills 01/29/18 DIVYA LINDER MD Sep 09, 2019 14:00
--- NOTE | 2019-09-09 15:06 | NUR ---
Discharge Note: PT DISHCARGED TO [facility] AT 1505. PT LEFT FACILITY WITH [facility] TRANSPORT STAFF. PT STABLE AND ALERT UPON DISCHARGE. PT PIV REMOVED FROM L HAND WITHOUT COMPLICATIONS, BANDAGAE APPLIED. REPORT CALLED [facility] RN AT 1508. OTHER FACILITY EDUCATED ABOUT DISCHARGE INSTRUCTIONS, DISCHARGE MEDICATIONS, AND FOLLOW-UP INSTRUCTIONS. NO CONCERNS VOICED AT THIS TIME. PT LEFT WITH ALL PERSONAL BELONGINGS. ACE GUPTA [address] Discharge instructions and discharge home medications reviewed with Patient and a copy given. All questions have been answered and understanding verbalized.
--- NOTE | 2019-09-09 15:56 | RAD ---
Ultrasound-guided right-sided thoracentesis 09/09/2019 1:52 PM Indication: effusion RIGHT SIDE Procedure: Informed consent was obtained. A timeout procedure was performed. Sonographic evaluation of the right chest was performed demonstrating moderate, partially loculated pleural effusion. The right posterior chest was prepped and draped in sterile fashion. 1% lidocaine without epinephrine was administered for local anesthesia. Real-time ultrasonographic guidance was used in passing a 5 [place] Voölkseh catheter into the right pleural space 500 cc of bloody pleural fluid was removed.. Samples of fluid were sent to the lab for further evaluation per ordering physician request. The catheter was removed and pressure held to achieve hemostasis. A sterile dressing was applied. No immediate complications were identified. The patient tolerated the procedure well. Impression: Right sided ultrasound-guided thoracentesis
--- NOTE | 2019-09-09 16:03 | PDOC3 ---
[facility]-Discharge Summary Date of Admission: Date of Admission: Sep 03, 2019 Date of Discharge: Date of Discharge: Sep 09, 2019 Admission Diagnosis: Admitting Diagnosis: Loculated right pleural effusion ESRD Enlarged left thyroid Hypoglycemia DM2 - with hypoglycemia - stop sulfonylureas DVT/PE - no INR on admit, will cont coumadin and daily INR Discharge Diagnosis: Discharge Diagnosis: Supratherapeutic INR improved now at 1.9 Loculated right pleural effusion s/p thoracentesis ESRD Enlarged left thyroid Hypoglycemia DM2 - with hypoglycemia - stop sulfonylureas DVT/PE in August 2019 COVID investigation with negative result Consults: Consults: Infectious disease, pulmonary, nephrology Procedures: Procedures: Right thoracentesis Hospital Course: Hospital Course: 64 yo F w/ PMHx ESRD on HD, DVT with PE, DM2, HTN, HLD, anemia, carotid stenosis, atrial fibrillation who presents to ED after she went to hemodialysis and suddenly felt cold and felt like her sugar and blood pressure had dropped. She denied any fevers or chills or sweats, but felt weak. She was brought to [facility] and found to have a white count of 12.2 and at dialysis her glucose was 22 given D50. She was afebrile, but her blood pressure was in 80s/50s and glucose was 161. She underwent a chest x-ray, which showed a loculated small to moderate right pleural effusion, right mid basilar consolidations, atelectasis or pneumonia, this was confirmed on CT scan as a loculated right pleural effusion. Cultures were obtained. Started on vancomycin and Zosyn. Currently, she is sitting upright in bed. She is sitting in bed, glucose 59 this morning. She and her daughter note that the person that drives her to dialysis just tested positive for SARS-CoV-2 and she is requesting testing. Still with cough currently. She does note her associate account executive had recommended she cut her glipizide in half or discontinue if she had further hypoglycemia. Patient was found to have elevated INR of 10. She was given vitamin K initially. There is no overt bleeding at the time. We waited for the INR to trend downwards to an INR less than 2 in order for her to have thoracentesis for her right pleural effusion. Patient was undergoing dialysis while she was waiting for the procedure. CT-guided thoracentesis was successfully completed with 500 cc drainage. Patient tolerated the procedure well. Patient will be transition from IV to p.o. antibiotics per ID. Patient will also have follow-up with pulmonary in October. Patient will also continue hemodialysis at [facility]. The rest of her hospital course was uneventful. Disposition: Disposition/Orders: D/C to Another Facility Activity: Activity: Resume previous activity Diet: Diet: Renal Medications: Home Meds Active Scripts Doxycycline Hyclate (DOXYCYCLINE HYCLATE) 100 Mg Tablet, 100 MG PO BID for pneumonia for 7 Days, #14 TAB Prov:DIVYA LINDER MD 09/09/19 Amoxicillin/Potassium Clav (AMOX TR-K CLV 500-125 MG TAB) 1 Each Tablet, 1 TAB PO BID for pneumonia for 7 Days, #14 TAB Prov:DIVYA LINDER MD 09/09/19 Reported Medications Letrozole (FEMARA) 2.5 Mg Tablet, 1 TAB PO DAILY for hormone for 30 Days, #30 TA B 0 Refills 09/04/19 Lidocaine (Lidocaine PATCH ) 1 Each Adh..patch, 1 EACH TP DAILY for FOR LOCAL PAIN, PATCH REMOVE AFTER 12 HOURS 09/04/19 Alogliptin Benzoate (NESINA) 12.5 Mg Tablet, 1 TAB PO DAILY for diabetes for 30 Days, #30 TAB 0 Refills 09/04/19 Metoprolol Succinate (METOPROLOL SUCCINATE ( XL )) 25 Mg Tab.er.24h, 25 TAB PO DAILY for htn, #30 TAB 5 Refills 09/04/19 Montelukast Sodium (MONTELUKAST SODIUM TABLET ) 10 Mg Tablet, 10 MG PO HS for FOR ASTHMA, TAB 0 Refills 09/04/19 Warfarin Sodium (WARFARIN SODIUM) 2 Mg Tablet, 2 MG PO DAILY for blood clots, #30 TAB 09/04/19 Amiodarone Hcl (AMIODARONE HCL) 200 Mg Tablet, 1 TAB PO DAILY for htn, #90 TAB 1 Refill 09/04/19 Sevelamer Carbonate (RENVELA) 800 Mg Tablet, 800 MG PO TIDWMEALS for , TAB 02/03/19 Clopidogrel Bisulfate (CLOPIDOGREL) 75 Mg Tablet, 75 MG PO DAILY for TO PREVENT BLOOD CLOTS, #30 TAB 0 Refills 02/03/19 Latanoprost (LATANOPROST) 2.5 Ml Drops, 1 DROP EACHEYE QHS for eyes, #7.5 ML 3 Refills 10/13/18 Budesonide/Formoterol Fumarate (SYMBICORT 160-4.5 MCG INHALER) 10.2 Gm Hfa.aer. ad, 2 PUFF IH BID for breathing, #10.6 GM 3 Refills 10/13/18 Glipizide (GLIPIZIDE) 5 Mg Tablet, 2.5 MG PO DAILY for DIABETES, TAB 01/14/18 Folic Acid/Vitamin B Comp W-C ([place]-SARAH TABLET) 0.8 Mg Tablet, 0.8 MG PO DAILY 05/26/15 Atorvastatin Calcium (ATORVASTATIN CALCIUM) 40 Mg Tablet, 1 TAB PO DAILY, #30 TAB 5 Refills 07/29/14 Discontinued Reported Medications Losartan Potassium (LOSARTAN POTASSIUM) 50 Mg Tablet, 50 MG PO DAILY for HYPERTENSION, TAB 10/30/18 Cinacalcet Hcl (SENSIPAR) 30 Mg Tablet, 30 MG PO DAILY for dialysis, TAB 10/13/18 Difluprednate (DUREZOL) 5 Ml Drops, 5 ML OP TID for cataracts, DROP 10/13/18 Bromfenac Sodium (Bromsite) 5 Ml Drops, 5 ML OP DAILY for cataracts, DROP 10/13/18 Aspirin (ASPIRIN) 81 Mg Tab.chew, 1 TAB PO DAILY for UNKOWN, #30 TAB 3 Refills 01/29/18 Discontinued Scripts Nitroglycerin (NITROSTAT) 0.4 Mg Tab.subl, 0.4 MG SL PRN Q5MIN PRN for CHEST PAIN for 20 Days, #9 TAB Prov:ALEA SWIFT MD 10/14/18 Scheduled Alogliptin Benzoate (Nesina), 1 TAB PO DAILY, (Reported) Amiodarone Hcl (Amiodarone Hcl), 1 TAB PO DAILY, (Reported) Amoxicillin/Potassium Clav (Amox Tr-K Clv 500-125 Mg Tab), 1 TAB PO BID Atorvastatin Calcium (Atorvastatin Calcium), 1 TAB PO DAILY, (Reported) Budesonide/Formoterol Fumarate (Symbicort 160-4.5 Mcg Inhaler), 2 PUFF IH BID, (Reported) Clopidogrel Bisulfate (Clopidogrel), 75 MG PO DAILY, (Reported) Doxycycline Hyclate (Doxycycline Hyclate), 100 MG PO BID Folic Acid/Vitamin B Comp W-C ([place]-Sarah Tablet), 0.8 MG PO DAILY, (Reported) Glipizide (Glipizide), 2.5 MG PO DAILY, (Reported) Latanoprost (Latanoprost), 1 DROP EACHEYE QHS, (Reported) Letrozole (Femara), 1 TAB PO DAILY, (Reported) Lidocaine (Lidocaine PATCH ), 1 EACH TP DAILY, (Reported) Metoprolol Succinate (Metoprolol Succinate ( Xl )), 25 TAB PO DAILY, (Reported) Montelukast Sodium (Montelukast Sodium Tablet ), 10 MG PO HS, (Reported) Sevelamer Carbonate (Renvela), 800 MG PO TIDWMEALS, (Reported) Warfarin Sodium (Warfarin Sodium), 2 MG PO DAILY, (Reported) Discontinued Medications Aspirin (Aspirin), 1 TAB PO DAILY, (Reported) Bromfenac Sodium (Bromsite), 5 ML OP DAILY, (Reported) Cinacalcet Hcl (Sensipar), 30 MG PO DAILY, (Reported) Difluprednate (Durezol), 5 ML OP TID, (Reported) Losartan Potassium (Losartan Potassium), 50 MG PO DAILY, (Reported) Nitroglycerin (Nitrostat), 0.4 MG SL PRN Q5MIN PRN for CHEST PAIN Total Time: Total Time: Total time spent was greater than 35 minutes Justicifation of Admission Dx: Justifications for Admission: Justification of Admission Dx: Yes Chronic Renal Failure: Renail Failure DIVYA LINDER MD Sep 09, 2019 16:03
--- NOTE | 2019-09-09 16:33 | PDOC ---
CARDIO Progress Notes Date and Time Date of Service 09/09/19 Time of Evaluation 1210 Subjective Subjective: No Chest Pain, No shortness of breath, No Palpitations Vitals Vitals Vital Signs Date Time Temp Pulse Resp B/P (MAP) Pulse Ox O2 Delivery O2 Flow Rate FiO2 09/09/19 11:17 98.4 73 18 94/46 (62) 95 Nasal Cannula 2.0 98.4 Weight Weight [ ] Input and Output Intake and Output Intake and Output 09/09/19 07:00 Intake Total 250 ml Output Total 500 ml Balance -250 ml Intake Oral 100 ml IV Total 150 ml Chest Tube Drainage Total 500 ml # Bowel Movements 3 Laboratory Labs Laboratory Tests Test 09/08/19 17:10 09/08/19 17:31 09/08/19 17:50 09/08/19 21:32 Body Fluid Source Pleural Body Fluid Color Red Body Fluid Clarity Turbid Body Fluid pH 7.26 Body Fluid Nucleated Cells 455 /cmm (Not Established) Body Fluid Mononuclear WBCs (%) 85 % Body Fluid Polymorphonuclear Cells 15 % Body Fluid Total RBCs Counted 73183 /cmm (Not Body Fluid Total Protein 3.4 g/dL (.) Body Fluid Lactate Dehydrogenase 355 IU/L (.) Glucose (Fingerstick) 56 mg/dL (70-99) 105 mg/dL (70-99) 110 mg/dL (70-99) Test 09/08/19 21:45 09/09/19 07:36 09/09/19 11:39 Clostridium difficile Toxin (PCR) Negative (NEGATIVE) Glucose (Fingerstick) 80 mg/dL (70-99) 109 mg/dL (70-99) Physical Exam HEENT: Neck Supple W Full Motion Chest: Symmetric LUNGS: Other (diminished bases) Heart: RRR (SR) Abdomen: Soft N/T Extremities: Other (trace bilateral LE edema ) Neurology: alert, oriented, follow commands, other (drowsy) Assessment Assessment 1. Dyspnea; mulifactorial 2. ICM with LVEF of 20%. Appears compensated 3. CAD s/p PCI to the LAD and diagonal in 2019 at [facility] 4. Mild troponin elevation; most probably type II, demand ischemia 5. Loculated pleural effusion, ? PNA. s/p thoracentesis- cultures sent 6. Hypertension; low end 7. ESRD on HD 8. PAFIB. s/p recent flutter ablation at [facility]; on Amiodarone for rhythm maintenance. Converted back to SR and has been maintaining. Recommendations Continue metoprolol for rate control Warfarin for stroke prophylaxis Fluid management via HD Okay to discharge to Supportive care Justicifation of Admission Dx: Justifications for Admission: Justification of Admission Dx: Yes Chronic Renal Failure: Renail Failure JEANNA CANNON APRN Sep 09, 2019 16:32
[2019-09-09] MEDS ORDERED: DOXYCYCLINE HYCLATE 100 MG TABLET PO SCH (21:00)
[2019-09-09] MEDS ORDERED: AMOXICILLIN/K CLAV 500/125MG TABLET. PO SCH (21:00)
--- NOTE | 2019-09-10 12:07 | PATHOLOGY ---
Note [facility] Accession Number: [id number] TESTS RESULT FLAG UNITS REF RANGE LAB Clinician Provided Cytology Information No. of containers..01 Other (Miscellaneous) Source: RIGHT PLEURAL FLUID DIAGNOSIS: 02 RIGHT PLEURAL FLUID NEGATIVE FOR MALIGNANT CELLS. SCANT CELLULARITY. COMMENT, REACTIVE MESOTHELIAL CELLS ARE PRESENT. Signed out by: 02 Dorian Reed MD, Pathologist NPI- [id number] Performed by: Siena Nash, Plastic Extruding Machine Operator ([facility]) Gross description: 01 20ML, ORANGE RED, 1 TP 1 CB /DAVI 09/09/2019 1605 Local FLAG LEGEND: L-Low Normal,H-High Normal,LL-Alert Low,HH-Alert High <-Panic Low,>-Panic High,A-Abnormal,AA-Critical Abnormal Performed at: 01 [facility] [address] [place] [address] Ezra Quintero MD, 02 [facility] [id number] Ford Dias MD, Specimen Comment: A courtesy copy of this report has been sent to [phone], [phone] Specimen Comment: [id number], Specimen Comment: Report sent to ,DR DANIELS / DR ROIBSON Specimen Comment: A duplicate report has been generated due to demographic updates. Performed at: 01 [facility] [place] [address], [place], [place] [id number] MD Ezra Quintero MD Phone: [phone]
[2019-09-10] MEDS ORDERED: VANCOMYCIN 750 MG in IV NORMAL SALINE 250ML 250 ML IV SCH (16:00)
== END 2019-09-09 15:05 | disposition short-term general hospital (02) | DRG 177 ==
LOC: ER 16:04 → 2 NORTH 18:16 → 6 SOUTH 09-04 16:32
PROVIDERS: ADMIT Internal Medicine; ATTEND Internal Medicine
PROC: 5A1D70Z Performance of Urinary Filtration, Intermittent, Less than 6 Hours Per Day (ICD-10-PCS; 2019-09-06)
PROC: 5A1D70Z Performance of Urinary Filtration, Intermittent, Less than 6 Hours Per Day (ICD-10-PCS; 2019-09-08)
PROC: 0W993ZZ Drainage of Right Pleural Cavity, Percutaneous Approach (ICD-10-PCS; principal; 2019-09-09)
DX: J15.6 Pneumonia due to other Gram-negative bacteria (principal); N18.6 End stage renal disease; I13.2 Hypertensive heart and chronic kidney disease with heart failure and with stage 5 chronic kidney disease, or end stage renal disease; D68.9 Coagulation defect, unspecified; I31.3 Pericardial effusion (noninflammatory); J98.11 Atelectasis; I50.22 Chronic systolic (congestive) heart failure; E11.649 Type 2 diabetes mellitus with hypoglycemia without coma; Z20.828 Contact with and (suspected) exposure to other viral communicable diseases; E11.22 Type 2 diabetes mellitus with diabetic chronic kidney disease; E66.9 Obesity, unspecified; E78.00 Pure hypercholesterolemia, unspecified; I25.10 Atherosclerotic heart disease of native coronary artery without angina pectoris; E78.5 Hyperlipidemia, unspecified; F41.9 Anxiety disorder, unspecified; I25.5 Ischemic cardiomyopathy; I48.0 Paroxysmal atrial fibrillation; M43.6 Torticollis; Z79.01 Long term (current) use of anticoagulants; Z82.49 Family history of ischemic heart disease and other diseases of the circulatory system; Z86.711 Personal history of pulmonary embolism; Z90.710 Acquired absence of both cervix and uterus; Z87.891 Personal history of nicotine dependence; Z91.041 Radiographic dye allergy status; Z95.2 Presence of prosthetic heart valve; Z98.61 Coronary angioplasty status; Z99.2 Dependence on renal dialysis; E66.01 Morbid (severe) obesity due to excess calories; M19.90 Unspecified osteoarthritis, unspecified site; Z91.013 Allergy to seafood; R74.0 Nonspecific elevation of levels of transaminase and lactic acid dehydrogenase [LDH]
CPT/HCPCS: 32555; 36415; 71045; 71250; 80048; 80053; 80076; 80202; 82962; 83605; 83615; 83690; 83880; 83986; 84157; 84484; 85025; 85610; 87071; 87075; 87116; 87493; 88112; 88305; 89050; 93005; 94640; 94760; 96361; 96365; 96368; C1892; J0882; J1160; J1815; J2543; J3370; J3490; J7040; P9046; 97110-GP; 97116-GP; 97530-GP; 99285-25; G0378; U0003-CS

== ENCOUNTER 2019-09-18 01:21 | Inpatient (IN) | payer MEDICARE, BC ==
[~2019-09-18] VITALS: Ht 162.6 cm; Wt 103.9 kg
[~2019-09-18 01:21] MED LIST changes: +ALOG12.5 PO; +AMIO200T4 PO; +AMOX1TAB10 PO; +DOXY100T PO; +FEMARA2.5 MG PO; +LIDO700A21 TP; +METO-239 PO; +MONT10TA49 PO; +WARF2TAB96 PO
[2019-09-18] MEDS ORDERED: DEXTROSE 50% 25 GM / 50ML DISP.SYRIN. IV ONE (01:30)
[2019-09-18] MEDS ORDERED: ONDANSETRON PF 4 MG/2 ML VIAL. IV PRN (01:45)
[2019-09-18 01:53] LABS: BASO # 0.1 x10^3/uL (0.0-0.2); BASO % 1 % (0-3); EOS # 0.2 x10^3/uL (0.0-0.7); EOS % 2 % (0-3); HEMATOCRIT 31.7 % (36.0-47.0); HEMOGLOBIN 10.1 g/dL (12.0-15.5); LYMPH # 1.3 x10^3/uL (1.0-4.8); LYMPH % 11 % (24-48); MEAN CORPUSCULAR HEMOGLOBIN 31 pg (25-35); MEAN CORPUSCULAR HGB CONC 32 g/dL (31-37); MEAN CORPUSCULAR VOLUME 98 fL (79-100); MONO # 1.3 x10^3/uL (0.0-1.1); MONO % 11 % (0-9); NEUT # 9.2 x10^3/uL (1.8-7.7); NEUT % 76 % (31-73); PLATELET COUNT 224 x10^3/uL (140-400); RED BLOOD COUNT 3.24 x10^6/uL (3.50-5.40); RED CELL DISTRIBUTION WIDTH 24.5 % (11.5-14.5)
--- NOTE | 2019-09-18 01:58 | PHYS DOC ---
Past Medical History Past Medical History: CAD, CHF, COPD, Diabetes-Type II, High Cholesterol, Hypertension, SD, Renal Disease, Renal Failure, Other Additional Past Medical Histor: HYPOGLYCEMIA,OBESITY, HD M/W/F Past Surgical History: Other Additional Past Surgical Histo: hemodialysis in left upper arm (NOT IN USE),R CAROTID, R, L ARM GRAFT DIALY Smoking Status: Never Smoker Alcohol Use: None Drug Use: None General Adult EDM: Chief Complaint: HYPOGLYCEMIA HPI: HPI: Patient is a 64 female presents via EMS with report of hypoglycemia. Patient has been seen by EMS 3 times today for similar. Patient reports she has been taking her insulin without being able to check her glucometer. Reports a glucometer has been broken for the past few days. Patient denies any nausea or vomiting. Denies dysuria. Denies trauma. Review of Systems: Review of Systems: Constitutional: Denies fever or chills Eyes: Denies redness or eye pain HENT: Denies nasal congestion or sore throat Respiratory: Denies cough or shortness of breath Cardiovascular: Denies chest pain or palpitations GI: Denies abdominal pain, nausea, or vomiting : Denies dysuria or hematuria Musculoskeletal: Denies back pain or joint pain Integument: Denies rash or skin lesions Neurologic: Denies headache, focal weakness or sensory changes; reports weakness Complete systems were reviewed and found to be within normal limits, except as documented in this note. Current Medications: Current Medications Medications (Trade) Dose Ordered Sig/Chinmay Start Time Stop Time Status Last Admin Dose Admin Dextrose (Dextrose 50%-Water Syringe) 12.5 gm PRN Q15MIN PRN 09/18/19 01:45 Insulin Human Lispro (HumaLOG) 0-5 UNITS TIDWMEALS 09/18/19 08:00 UNV Ondansetron HCl (Zofran) 4 mg PRN Q8HRS PRN 09/18/19 01:45 09/19/19 01:44 Allergies: Allergies: Allergies Coded Allergies Type Severity Reaction Last Updated Verified Iodine and Iodide Containing Produc Allergy Severe swells up & itches 02/13/18 Yes shellfish derived Allergy Intermediate "SEAFOOD" 02/13/18 Yes Physical Exam: PE: Constitutional: Well developed, well nourished, no acute distress, non-toxic a ppearance HENT: Normocephalic, atraumatic Eyes: Conjunctiva normal, no discharge Neck: Normal range of motion, no tenderness, supple Lungs & Thorax: No respiratory distress, equal chest rise and fall Abdomen: Soft, no tenderness Skin: Warm, dry, no erythema, no rash Extremities: No tenderness, ROM intact, no edema Neurologic: Alert and oriented X 3, normal motor function, normal sensory function, no focal deficits noted Psychologic: Affect normal, judgment normal Current Patient Data: Labs: Laboratory Tests Test 09/18/19 01:30 09/18/19 01:40 Glucose (Fingerstick) 23 mg/dL (70-99) *L White Blood Count 12.0 x10^3/uL (4.0-11.0) H Red Blood Count 3.24 x10^6/uL (3.50-5.40) L Hemoglobin 10.1 g/dL (12.0-15.5) L Hematocrit 31.7 % (36.0-47.0) L Mean Corpuscular Volume 98 fL (79-100) Mean Corpuscular Hemoglobin 31 pg (25-35) Mean Corpuscular Hemoglobin Concent 32 g/dL (31-37) Red Cell Distribution Width 24.5 % (11.5-14.5) H Platelet Count 224 x10^3/uL (140-400) Neutrophils (%) (Auto) 76 % (31-73) H Lymphocytes (%) (Auto) 11 % (24-48) L Monocytes (%) (Auto) 11 % (0-9) H Eosinophils (%) (Auto) 2 % (0-3) Basophils (%) (Auto) 1 % (0-3) Neutrophils # (Auto) 9.2 x10^3/uL (1.8-7.7) H Lymphocytes # (Auto) 1.3 x10^3/uL (1.0-4.8) Monocytes # (Auto) 1.3 x10^3/uL (0.0-1.1) H Eosinophils # (Auto) 0.2 x10^3/uL (0.0-0.7) Basophils # (Auto) 0.1 x10^3/uL (0.0-0.2) Platelet Estimate Pending Laboratory Tests 09/18/19 01:40 Vital Signs: Vital Signs Date Time Temp Pulse Resp B/P (MAP) Pulse Ox O2 Delivery O2 Flow Rate FiO2 09/18/19 01:45 98.8 93 18 91/55 (67) 94 Room Air 98.8 EKG: EKG: @0156 NSR at 95bpm, NO ST elevation, QRS 102ms, QT/QTc 392/496ms Radiology/Procedures: Radiology/Procedures: PROCEDURE: CHEST AP ONLY EXAM: CHEST AP ONLY INDICATION: Reason: weakness / Spl. Instructions: / History: . TECHNIQUE: Single view COMPARISON: 09/03/2019 chest x-ray FINDINGS: Heart is moderately enlarged. Surgical changes from aortic valve prosthesis are redemonstrated. The great vessels appear unremarkable. There is no hilar or mediastinal mass. Lungs show bilateral hazy basilar opacities with cephalization of vessels. There is been interval improvement in the right upper and right middle lobes. Small right pleural effusion is present. No pneumothorax. There are no significant osseous abnormalities. IMPRESSION: Improving lung aeration with cardiomegaly and findings of pulmonary vascular congestion and smaller right pleural effusion. Electronically signed by: Nhan Gil MD (09/18/2019 2:03 AM) [facility] [place] Med Decision Making: Course & Med Decision Making Pertinent Labs and Imaging studies reviewed. (See chart for details) Patient presents via EMS with report of hypoglycemia. Patient noted to be significantly hypoglycemic upon arrival. D50 provided with interval improvement of symptoms. Labs obtained and posted to chart. History of end-stage renal disease on hemodialysis Friday/Friday/Friday. Patient reports she was unable to attend dialysis yesterday. Patient does not make urine. Chest x-ray without acute process. EKG stable. Initial troponin slightly elevated likely secondary to chronic renal disease. Lactic acidosis noted. NO infectious process noted. Patient requiring admission for further evaluation and treatment. Discussed with Dr. Dailey (hospitalist) who is in agreement with admission. Discussed findings and plan with patient, who acknowledges understanding and agreement. Sandrine Disclaimer: Sandrine Disclaimer: This electronic medical record was generated, in whole or in part, using a voice recognition dictation system. Departure Departure Impression: Primary Impression: Hypoglycemia Additional Impressions: ESRD (end stage renal disease) Elevated troponin Lactic acidosis Disposition: ADMITTED INPATIENT Admitting Physician: BONNY (Asim) Condition: IMPROVED Referrals: DARIEL FLYNN APRN (PCP) Justicifation of Admission Dx: Justifications for Admission: Justification of Admission Dx: Yes Chronic Renal Failure: Renail Failure Comments: Hypoglycemia, ESRD Critical Care Time Critical care time was 30 minutes which includes time at bedside, spent in discussion of patient's care with specialists and/or family members, with interpretation of laboratory and/or radiological studies and is exclusive of procedures. TONI ZAMUDIO DO Sep 18, 2019 01:58
--- NOTE | 2019-09-18 02:06 | RAD ---
EXAM: CHEST AP ONLY INDICATION: Reason: weakness / Spl. Instructions: / History: . TECHNIQUE: Single view COMPARISON: 09/03/2019 chest x-ray FINDINGS: Heart is moderately enlarged. Surgical changes from aortic valve prosthesis are redemonstrated. The great vessels appear unremarkable. There is no hilar or mediastinal mass. Lungs show bilateral hazy basilar opacities with cephalization of vessels. There is been interval improvement in the right upper and right middle lobes. Small right pleural effusion is present. No pneumothorax. There are no significant osseous abnormalities. IMPRESSION: Improving lung aeration with cardiomegaly and findings of pulmonary vascular congestion and smaller right pleural effusion. Electronically signed by: Nhan Gil MD (09/18/2019 2:03 AM) [facility] [place] [facility] [place]
[2019-09-18 02:15] LABS: ALBUMIN 2.3 g/dL (3.4-5.0); ALBUMIN/GLOBULIN RATIO 0.5 (1.0-1.7); CALCIUM 9.4 mg/dL (8.5-10.1); CREATININE 8.2 mg/dL (0.6-1.0); MAGNESIUM 1.9 mg/dL (1.8-2.4); POTASSIUM 3.6 mmol/L (3.5-5.1); TOTAL BILIRUBIN 1.8 mg/dL (0.2-1.0); TOTAL PROTEIN 7.1 g/dL (6.4-8.2)
[2019-09-18 02:20] LABS: CREATINE KINASE 37 U/L (26-192)
[2019-09-18] MEDS ORDERED: ASPIRIN 325 MG TABLET PO ONE (03:15)
[2019-09-18] MEDS: DEXTROSE 50% 25 GM / 50ML DISP.SYRIN. IV PRN ×11 (03:42→23:59)
[2019-09-18] MEDS ORDERED: IV DEXTROSE 5% 500 ML IV ONE (03:45)
[2019-09-18 03:47] LABS: ANISOCYTOSIS MOD; PLT ESTIMATE ADEQUATE (ADEQUATE); POLYCHROMASIA SLIGHT
[2019-09-18 03:48] LABS: TARGET CELLS FEW
[2019-09-18] MEDS ORDERED: IV DEXTROSE 5% 1,000 ML IV ONE (04:00)
--- NOTE | 2019-09-18 04:12 | NUR ---
Pt arrival to the floor at this time via ER cart. Pt transferred from bed to bed by scooting herself over, gait not assessed. Pt denies pain. Blood sugar rechecked upon arrival is 83. Pt is refusing to take any oral forms of food to raise blood sugar, states she just doesn't want to eat right now. D5 is infusing. Items and call light in reach. Pt resting comfortably.
--- NOTE | 2019-09-18 06:05 | NUR ---
Blood glucose 59 at this time. Pt given 3 cranberry juices at bedside, is agreeable to taking oral supplement. Will recheck after she has taken in some juice.
[2019-09-18 07:00] VITALS: BP 118/63
[2019-09-18] MEDS: INSULIN LISPRO 300 UNITS/3 ML VIAL. SQ SCH ×3 (08:00→16:36)
[2019-09-18] MEDS ORDERED: C.DIFF MED SCREEN BY RX. MC ONE (09:00)
--- NOTE | 2019-09-18 10:49 | PDOC1 ---
History and Physical Date of Admission Date of Admission DATE: 09/18/19 TIME: 10:48 Identification/Chief Complaint Chief Complaint SEEN IN ER WITH SEVERE HYPOGLYCEMIA, 64 female presents via EMS with report of hypoglycemia. Patient has been seen by EMS 3 times 09/16 B for similar. Patient reports she has been taking her insulin without being able to check her glucometer. Reports a new glucometer has been NOT functioning well for the past few days. Patient denies any nausea or vomiting. Denies dysuria. Denies trauma. recent Hospital Course: 64 yo F w/ PMHx ESRD on HD, DVT with PE, DM2, HTN, HLD, anemia, carotid stenosis, atrial fibrillation who presents to ED after she went to hemodialysis and suddenly felt cold and felt like her sugar and blood pressure had dropped. She denied any fevers or chills or sweats, but felt weak. She was brought to [facility] and found to have a white count of 12.2 and at dialysis her glucose was 22 given D50. She was afebrile, but her blood pressure was in 80s/50s and glucose was 161. She underwent a chest x-ray, which showed a loculated small to moderate right pleural effusion, right mid basilar consoli dations, atelectasis or pneumonia, Past Medical History Past Medical History Past Medical History Past Medical History Past Medical History: CAD, CHF, COPD, Diabetes-Type II, High Cholesterol, Hypertension, [place], Renal Disease, Renal Failure, Other Additional Past Medical Histor: HYPOGLYCEMIA,OBESITY, HD M/W/F Past Surgical History: Other Additional Past Surgical Histo: hemodialysis in left upper arm (NOT IN USE),R CAROTID, R, L ARM GRAFT DIALY Smoking Status: Never Smoker Alcohol Use: None Drug Use: None FHX OBESITY Cardiovascular: AFIB, CAD, CHF, HTN, Hyperlipidemia, Aortic stenosis Pulmonary: COPD, Other CENTRAL NERVOUS SYSTEM: Periperal neuropathy GI: No pertinent hx Heme/Onc: Anemia NOS, Other Musculoskeletal: Osteoarthritis, Other Renal/: Chronic renal failure Endocrine: Diabetes Past Surgical History Past Surgical History: Hernia Repair, Other Family History Family History: Cancer, Hypertension Social History Smoke: No ALCOHOL: none Drugs: None Current Problem List Problem List Problems Medical Problems: (1) Elevated troponin Status: Acute (2) Hypoglycemia Status: Acute (3) Lactic acidosis Status: Acute Current Medications Current Medications Current Medications Dextrose (Dextrose 50%-Water Syringe) 25 gm 1X ONCE IV Last administered on 09/18/19at 01:37; Start 09/18/19 at 01:30; Stop 09/18/19 at 01:41; Status DC Insulin Human Lispro (HumaLOG) 0-5 UNITS TIDWMEALS SQ ; Start 09/18/19 at 08:00 Dextrose (Dextrose 50%-Water Syringe) 12.5 gm PRN Q15MIN PRN IV SEE COMMENTS Last administered on 09/18/19at 07:01; Start 09/18/19 at 01:45 Ondansetron HCl (Zofran) 4 mg PRN Q8HRS PRN IV NAUSEA/VOMITING; Start 09/18/19 at 01:45; Stop 09/19/19 at 01:44 Aspirin (Jeanette Aspirin) 325 mg 1X ONCE PO Last administered on 09/18/19at 03:47; Start 09/18/19 at 03:15; Stop 09/18/19 at 03:16; Status DC Dextrose 500 ml @ 75 mls/hr 1X ONCE IV ; Start 09/18/19 at 03:45; Stop 09/18/19 at 03:52; Status DC Dextrose 1,000 ml @ 75 mls/hr 1X ONCE IV Last administered on 09/18/19at 03:55; Start 09/18/19 at 04:00; Stop 09/18/19 at 17:19 Pharmacy Consult (C.diff Med Screen By Rx) 1 each 1X ONCE [facility] ; Start 09/18/19 at 09:00; Stop 09/18/19 at 09:01; Status DC Active Scripts Active Doxycycline Hyclate 100 Mg Tablet 100 Mg PO BID 7 Days Amox Tr-K Clv 500-125 Mg Tab (Amoxicillin/Potassium Clav) 1 Each Tablet 1 Tab PO BID 7 Days Reported Femara (Letrozole) 2.5 Mg Tablet 1 Tab PO DAILY 30 Days Lidocaine PATCH (Lidocaine) 1 Each Adh..patch 1 Each TP DAILY REMOVE AFTER 12 HOURS Nesina (Alogliptin Benzoate) 12.5 Mg Tablet 1 Tab PO DAILY 30 Days Metoprolol Succinate ( Xl ) (Metoprolol Succinate) 25 Mg Tab.er.24h 25 Tab PO DAILY Montelukast Sodium Tablet (Montelukast Sodium) 10 Mg Tablet 10 Mg PO HS Warfarin Sodium 2 Mg Tablet 2 Mg PO DAILY Amiodarone Hcl 200 Mg Tablet 1 Tab PO DAILY Renvela (Sevelamer Carbonate) 800 Mg Tablet 800 Mg PO TIDWMEALS Clopidogrel (Clopidogrel Bisulfate) 75 Mg Tablet 75 Mg PO DAILY Latanoprost 2.5 Ml Drops 1 Drop EACHEYE QHS Symbicort 160-4.5 Mcg Inhaler (Budesonide/Formoterol Fumarate) 10.2 Gm Hfa.aer.ad 2 Puff IH BID Glipizide 5 Mg Tablet 2.5 Mg PO DAILY Jacquie-Debbi Tablet (Folic Acid/Vitamin B Comp W-C) 0.8 Mg Tablet 0.8 Mg PO DAILY Atorvastatin Calcium 40 Mg Tablet 1 Tab PO DAILY Allergies Allergies: Coded Allergies: Iodine and Iodide Containing Produc (Verified Allergy, Severe, swells up & itches, 02/13/18) shellfish derived (Verified Allergy, Intermediate, "SEAFOOD", 02/13/18) ROS Review of System appetite only fair Constitutional: Denies fever or chills Eyes: Denies redness or eye pain HENT: Denies nasal congestion or sore throat Respiratory: Denies cough or shortness of breath Cardiovascular: Denies chest pain or palpitations GI: Denies abdominal pain, nausea, or vomiting : Denies dysuria or hematuria Musculoskeletal: Denies back pain or joint pain Integument: Denies rash or skin lesions Neurologic: Denies headache, focal weakness or sensory changes; reports weakness 14 pt systems were reviewed and found to be within normal limits, except as documented General: YES: Fatigue Respiratory: No: Cough, Hemoptysis, Orthopnea, Pleuritic Pain, Shortness of breath, SOB with excertion, Sputum Changes, Stridor, Tachypnea, Wheezing, Other Cardiovascular: No Chest Pain, No Palpitations, No Orthopnea, No Paroxysmal Noc. Dyspnea, No Edema, No Lt Headedness, No Other Musculoskeletal: Yes Joint Stiffness Neurological: Yes Confusion Skin: No Dry Skin, No Eczema, No Hair Changes, No Lumps, No Mole Changes, No Mottling, No Nail Changes, No Pruritus, No Rash, No Skin Lesion Changes, No Other, No Acne Physical Exam Physical Exam Constitutional: Well developed, well nourished, no acute distress, non-toxic appearance HENT: Normocephalic, atraumatic Eyes: Conjunctiva normal, no discharge Neck: Normal range of motion, no tenderness, supple Lungs & Thorax: No respiratory distress, equal chest rise and fall Abdomen: Soft, no tenderness Skin: Warm, dry, no erythema, no rash Extremities: No tenderness, ROM intact, no edema Neurologic: Alert and oriented X 3, normal motor function, normal sensory function, no focal deficits noted Psychologic: Affect normal, judgment normal General: Alert, Oriented X3, Cooperative, No acute distress HEENT: Atraumatic Lungs: Clear to auscultation Heart: RRR, no gallops Abdomen: Normal bowel sounds Rectal Exam: not examined PELVIC: Examination not indicated Extremities: No cyanosis Neuro: Normal speech, Cranial nerves 3-12 NL Psych/Mental Status: Mental status NL, Mood NL Vitals Vitals Vital Signs Date Time Temp Pulse Resp B/P (MAP) Pulse Ox O2 Delivery O2 Flow Rate FiO2 09/18/19 08:00 Nasal Cannula 2.0 09/18/19 07:00 97.8 94 20 118/63 (81) 98 97.8 Labs Labs Laboratory Tests Test 09/18/19 01:30 09/18/19 01:40 09/18/19 01:54 09/18/19 03:38 Glucose (Fingerstick) 23 mg/dL (70-99) 241 mg/dL (70-99) 26 mg/dL (70-99) White Blood Count 12.0 x10^3/uL (4.0-11.0) Red Blood Count 3.24 x10^6/uL (3.50-5.40) Hemoglobin 10.1 g/dL (12.0-15.5) Hematocrit 31.7 % (36.0-47.0) Mean Corpuscular Volume 98 fL (79-100) Mean Corpuscular Hemoglobin 31 pg (25-35) Mean Corpuscular Hemoglobin Concent 32 g/dL (31-37) Red Cell Distribution Width 24.5 % (11.5-14.5) Platelet Count 224 x10^3/uL (140-400) Neutrophils (%) (Auto) 76 % (31-73) Lymphocytes (%) (Auto) 11 % (24-48) Monocytes (%) (Auto) 11 % (0-9) Eosinophils (%) (Auto) 2 % (0-3) Basophils (%) (Auto) 1 % (0-3) Neutrophils # (Auto) 9.2 x10^3/uL (1.8-7.7) Lymphocytes # (Auto) 1.3 x10^3/uL (1.0-4.8) Monocytes # (Auto) 1.3 x10^3/uL (0.0-1.1) Eosinophils # (Auto) 0.2 x10^3/uL (0.0-0.7) Basophils # (Auto) 0.1 x10^3/uL (0.0-0.2) Platelet Estimate Adequate (ADEQUATE) Polychromasia Slight Anisocytosis Mod Macrocytosis Slight Target Cells Few Sodium Level 140 mmol/L (136-145) Potassium Level 3.6 mmol/L (3.5-5.1) Chloride Level 102 mmol/L (98-107) Carbon Dioxide Level 29 mmol/L (21-32) Anion Gap 9 (6-14) Blood Urea Nitrogen 29 mg/dL (7-20) Creatinine 8.2 mg/dL (0.6-1.0) Estimated GFR (Cockcroft-Gault) 6.0 BUN/Creatinine Ratio 4 (6-20) Glucose Level 43 mg/dL (70-99) Lactic Acid Level 2.3 mmol/L (0.4-2.0) Calcium Level 9.4 mg/dL (8.5-10.1) Magnesium Level 1.9 mg/dL (1.8-2.4) Total Bilirubin 1.8 mg/dL (0.2-1.0) Aspartate Amino Transf (AST/SGOT) 39 U/L (15-37) Alanine Aminotransferase (ALT/SGPT) 71 U/L (14-59) Alkaline Phosphatase 163 U/L (46-116) Creatine Kinase 37 U/L (26-192) Creatine Kinase MB (Mass) < 0.5 ng/mL (0.0-3.6) Creatine Kinase MB Relative Index % (0-4) Troponin I Quantitative 0.098 ng/mL (0.000-0.055) Total Protein 7.1 g/dL (6.4-8.2) Albumin 2.3 g/dL (3.4-5.0) Albumin/Globulin Ratio 0.5 (1.0-1.7) Test 09/18/19 04:22 09/18/19 06:00 09/18/19 06:58 09/18/19 07:26 Glucose (Fingerstick) 83 mg/dL (70-99) 59 mg/dL (70-99) 32 mg/dL (70-99) 74 mg/dL (70-99) Lactic Acid Level 2.0 mmol/L (0.4-2.0) Troponin I Quantitative 0.092 ng/mL (0.000-0.055) Test 09/18/19 09:00 09/18/19 10:25 09/18/19 10:33 Troponin I Quantitative 0.095 ng/mL (0.000-0.055) Glucose (Fingerstick) 20 mg/dL (70-99) 166 mg/dL (70-99) Laboratory Tests Test 09/18/19 01:30 09/18/19 01:40 09/18/19 01:54 09/18/19 03:38 Glucose (Fingerstick) 23 mg/dL (70-99) 241 mg/dL (70-99) 26 mg/dL (70-99) White Blood Count 12.0 x10^3/uL (4.0-11.0) Red Blood Count 3.24 x10^6/uL (3.50-5.40) Hemoglobin 10.1 g/dL (12.0-15.5) Hematocrit 31.7 % (36.0-47.0) Mean Corpuscular Volume 98 fL (79-100) Mean Corpuscular Hemoglobin 31 pg (25-35) Mean Corpuscular Hemoglobin Concent 32 g/dL (31-37) Red Cell Distribution Width 24.5 % (11.5-14.5) Platelet Count 224 x10^3/uL (140-400) Neutrophils (%) (Auto) 76 % (31-73) Lymphocytes (%) (Auto) 11 % (24-48) Monocytes (%) (Auto) 11 % (0-9) Eosinophils (%) (Auto) 2 % (0-3) Basophils (%) (Auto) 1 % (0-3) Neutrophils # (Auto) 9.2 x10^3/uL (1.8-7.7) Lymphocytes # (Auto) 1.3 x10^3/uL (1.0-4.8) Monocytes # (Auto) 1.3 x10^3/uL (0.0-1.1) Eosinophils # (Auto) 0.2 x10^3/uL (0.0-0.7) Basophils # (Auto) 0.1 x10^3/uL (0.0-0.2) Platelet Estimate Adequate (ADEQUATE) Polychromasia Slight Anisocytosis Mod Macrocytosis Slight Target Cells Few Sodium Level 140 mmol/L (136-145) Potassium Level 3.6 mmol/L (3.5-5.1) Chloride Level 102 mmol/L (98-107) Carbon Dioxide Level 29 mmol/L (21-32) Anion Gap 9 (6-14) Blood Urea Nitrogen 29 mg/dL (7-20) Creatinine 8.2 mg/dL (0.6-1.0) Estimated GFR (Cockcroft-Gault) 6.0 BUN/Creatinine Ratio 4 (6-20) Glucose Level 43 mg/dL (70-99) Lactic Acid Level 2.3 mmol/L (0.4-2.0) Calcium Level 9.4 mg/dL (8.5-10.1) Magnesium Level 1.9 mg/dL (1.8-2.4) Total Bilirubin 1.8 mg/dL (0.2-1.0) Aspartate Amino Transf (AST/SGOT) 39 U/L (15-37) Alanine Aminotransferase (ALT/SGPT) 71 U/L (14-59) Alkaline Phosphatase 163 U/L (46-116) Creatine Kinase 37 U/L (26-192) Creatine Kinase MB (Mass) < 0.5 ng/mL (0.0-3.6) Creatine Kinase MB Relative Index % (0-4) Troponin I Quantitative 0.098 ng/mL (0.000-0.055) Total Protein 7.1 g/dL (6.4-8.2) Albumin 2.3 g/dL (3.4-5.0) Albumin/Globulin Ratio 0.5 (1.0-1.7) Test 09/18/19 04:22 09/18/19 06:00 09/18/19 06:58 09/18/19 07:26 Glucose (Fingerstick) 83 mg/dL (70-99) 59 mg/dL (70-99) 32 mg/dL (70-99) 74 mg/dL (70-99) Lactic Acid Level 2.0 mmol/L (0.4-2.0) Troponin I Quantitative 0.092 ng/mL (0.000-0.055) Test 09/18/19 09:00 09/18/19 10:25 09/18/19 10:33 Troponin I Quantitative 0.095 ng/mL (0.000-0.055) Glucose (Fingerstick) 20 mg/dL (70-99) 166 mg/dL (70-99) Images Images Aortic Valve AoV Peak Everardo. 234.1cm/s AoV VTI 45.8cm AO Peak GR. 21.9mmHg LVOT VTI 15.85cm AO Mean GR. 11mmHg ISIDRO (VMAX) 1.00cm2 ISIDRO (VTI) 0.90cm2 Mitral Valve MV E Velocity 141.0cm/s MV DECEL TIME 62ms MV A Velocity 106.7cm/s MV E Mean Gr. 3mmHg E/A Ratio 1.3 Tricuspid Valve TR P. Velocity 246cm/s RAP ESTIMATE 15mmHg TR Peak Gr. 24mmHg RVSP 39mmHg LEFT VENTRICLE The left ventricle is normal size. There is moderate concentric left ventricular hypertrophy. The systolic function is moderately impaired. EF 35% Septal motion consistent with conduction abnormality. There is global hypokinesis. Transmitral Doppler flow pattern is Grade II-pseudonormal filling dynamics. RIGHT VENTRICLE The right ventricle is normal size. There is normal right ventricular wall thickness. The right ventricular systolic function is normal. ATRIA The left atrium is moderately dilated. The right atrium is mildly dilated. The interatrial septum is intact with no evidence for an atrial septal defect or patent foramen ovale as noted on 2-D or Doppler imaging. AORTIC VALVE The aortic valve is not well visualized. TAVR valve in place. Doppler and Color Flow revealed no significant aortic regurgitation. TAVR valve with a maximum pressure gradient of 22 mmHg and mean pressure gradient of 11 mmHg. MITRAL VALVE Mitral annular calcification is moderate. There is no evidence of mitral valve prolapse. There is no mitral valve stenosis. TRICUSPID VALVE The tricuspid valve is normal in structure and function. Doppler and Color Flow revealed trace tricuspid regurgitation. The PA pressure was estimated at 39 mmHg. There is no tricuspid valve prolapse or vegetation. There is no tricuspid valve stenosis. PULMONIC VALVE The pulmonic valve is not well visualized. GREAT VESSELS The aortic root is normal in size. The ascending aorta is normal in size. The IVC is dilated and collapses <50% with inspiration. PERICARDIAL EFFUSION There is a small circumferential pericardial effusion. Critical Notification Critical Value: No <Conclusion> Septal motion consistent with conduction abnormality. There is global hypokinesis. The aortic valve is not well visualized. TAVR valve in place. Doppler and Color Flow revealed trace tricuspid regurgitation. The PA pressure was estimated at 39 mmHg. There is a small circumferential pericardial effusion. Signed by : Talha Pedersen, Electronically Approved : 10/14/2018 09:19:48 DICTATED and SIGNED BY: TALHA PEDERSEN MD DATE: 10/14/18 09 EXAM: CHEST AP ONLY INDICATION: Reason: weakness / Spl. Instructions: / History: . TECHNIQUE: Single view COMPARISON: 09/03/2019 chest x-ray FINDINGS: Heart is moderately enlarged. Surgical changes from aortic valve prosthesis are redemonstrated. The great vessels appear unremarkable. There is no hilar or mediastinal mass. Lungs show bilateral hazy basilar opacities with cephalization of vessels. There is been interval improvement in the right upper and right middle lobes. Small right pleural effusion is present. No pneumothorax. There are no significant osseous abnormalities. IMPRESSION: Improving lung aeration with cardiomegaly and findings of pulmonary vascular congestion and smaller right pleural effusion. Electronically signed by: Luis Gil MD (09/18/2019 2:03 AM) [facility] [place] DICTATED and SIGNED BY: LUIS GIL MD DATE: 09/18/19 0203 VTE Prophylaxis Ordered VTE Prophylaxis Devices: No VTE Pharmacological Prophylaxi: Yes Assessment/Plan Assessment/Plan IMPRESSION: SEVERE RECURRENT HYPOGLYCEMIA Improving lung aeration with cardiomegaly and findings of pulmonary vascular congestion and smaller right pleural effusion. RECENT Supratherapeutic INR improved RECENT D/C at 1.9 Loculated right pleural effusion s/p thoracentesis ESRD Enlarged left thyroid Hypoglycemia, recurrent DM2 - with hypoglycemia - stop sulfonylureas and insulin DVT/PE in August 2019 ON [facility] minimal troponin i elevation likely type ii demand ischemia morbid obesity echo in 2019 //PA pressure was estimated at 39 mmHg. c/w pulm hypertension plan admit hold insulin and glypizide iv d5w insulin level consult nephrology consult cardiology INR NOW glucose checks q 2 hrs x 3 , then q 4 hrs and ac, hs serum insulin level D/W RN Justicifation of Admission Dx: Justifications for Admission: Justification of Admission Dx: Yes Chronic Renal Failure: Renail Failure CATE ALBERTO MD Sep 18, 2019 10:48
--- NOTE | 2019-09-18 10:50 | NUR ---
Pharmacy Medication Review S: Consulted for medication review re: C.diff Risk Assessment score of 4 O: ACE GUPTA is a 64 year old with: Previous C.diff infection: No Previous hospitalization: Within 30 days Recent antibiotics: Within 30 days Use of gastric acid suppressor: No Transfer from [place]/[facility]: No Current antibiotic regimen: NONE Current acid suppression regimen: NONE A: Patient has been identified as having risk factors for C.diff infection as noted above. P: ABX DE-ESCALATION RECOMMENDED: N/A PROBIOTIC ORDERED: NO PPI CHANGED TO [id number]: N/A NAZANIN ALMEIDA [facility], 09/18/19 [id number]
[2019-09-18 10:51] VITALS: BP 111/67
[2019-09-18] MEDS ORDERED: ALBUTEROL SULFATE 2.5 MG/3 ML NEBU. NEB PRN (11:15)
[2019-09-18 11:30] LABS: PROTHROMBIN TIME PATIENT 22.6 SEC (11.7-14.0)
[2019-09-18] MEDS: BUDESONIDE 0.5 MG/2 ML NEBU. NEB SCH ×2 (11:50→19:55)
[2019-09-18] MEDS: ALBUTEROL SULFATE 2.5 MG/3 ML NEBU. NEB SCH ×3 (11:51→19:57)
--- NOTE | 2019-09-18 12:31 | PDOC2 ---
CONSULT Date of Consult Date of Consult DATE: 09/18/19 TIME: 12:31 Reason for Consult Reason for Consult: ESRD Identification/Chief Complaint Chief Complaint No complaints currently Source Source: Chart review, Patient History of Present Illness Reason for Visit: Patient is a 64 AA female presents via EMS with report of hypoglycemia. Patient has been seen by EMS 3 times for similar. Patient reports she has been taking her insulin without being able to check her glucometer. Reports a glucometer has been broken for the past few days. Patient denies any nausea or vomiting. No abdominal pain.States minimal RRF. No Fever, Chills. She denies any SOB or CP. She was at admitted at [facility] recently for Hypotension She is followed by Dr. Miller. She dialyzes at [facility] on a Friday basis under his care. She has been on dialysis for approximately 6 years and ESRD is secondary to uncontrolled longstanding hypertension. Past Medical History Cardiovascular: AFIB, CAD, CHF, HTN, Hyperlipidemia, Aortic stenosis Pulmonary: COPD, Other CENTRAL NERVOUS SYSTEM: Periperal neuropathy GI: No pertinent hx Heme/Onc: Anemia NOS, Other Musculoskeletal: Osteoarthritis, Other Renal/: Chronic renal failure Endocrine: Diabetes Past Surgical History Past Surgical History: Hernia Repair, Other Family History Family History: Cancer, Hypertension Social History No ALCOHOL: none Drugs: None Lives: with Family Current Problem List Problem List Problems Medical Problems: (1) Elevated troponin Status: Acute (2) Hypoglycemia Status: Acute (3) Lactic acidosis Status: Acute Current Medications Current Medications Current Medications Dextrose (Dextrose 50%-Water Syringe) 25 gm 1X ONCE IV Last administered on 09/18/19at 01:37; Start 09/18/19 at 01:30; Stop 09/18/19 at 01:41; Status DC Insulin Human Lispro (HumaLOG) 0-5 UNITS TIDWMEALS SQ ; Start 09/18/19 at 08:00 Dextrose (Dextrose 50%-Water Syringe) 12.5 gm PRN Q15MIN PRN IV SEE COMMENTS Last administered on 09/18/19at 12:00; Start 09/18/19 at 01:45 Ondansetron HCl (Zofran) 4 mg PRN Q8HRS PRN IV NAUSEA/VOMITING; Start 09/18/19 at 01:45; Stop 09/19/19 at 01:44 Aspirin (Jeanette Aspirin) 325 mg 1X ONCE PO Last administered on 09/18/19at 03:47; Start 09/18/19 at 03:15; Stop 09/18/19 at 03:16; Status DC Dextrose 500 ml @ 75 mls/hr 1X ONCE IV ; Start 09/18/19 at 03:45; Stop 09/18/19 at 03:52; Status DC Dextrose 1,000 ml @ 75 mls/hr 1X ONCE IV Last administered on 09/18/19at 03:55; Start 09/18/19 at 04:00; Stop 09/18/19 at 17:19 Pharmacy Consult (C.diff Med Screen By Rx) 1 each 1X ONCE [facility] ; Start 09/18/19 at 09:00; Stop 09/18/19 at 09:01; Status DC Amiodarone HCl (Cordarone) 200 mg DAILY PO ; Start 09/18/19 at 12:00 Atorvastatin Calcium (Lipitor) 40 mg DAILY PO ; Start 09/18/19 at 12:00 Clopidogrel Bisulfate (Plavix) 75 mg DAILY PO ; Start 09/18/19 at 12:00 Vitamin B Complex/ Vitamin C (Jacquie-Debbi) 1 tab DAILY PO ; Start 09/18/19 at 12:00 Latanoprost (Xalatan) 1 drop QHS OU ; Start 09/18/19 at 21:00 Lidocaine (Lidoderm) 1 patch DAILY TP ; Start 09/18/19 at 12:00 Metoprolol Succinate (Toprol Xl) 25 mg DAILY PO ; Start 09/18/19 at 12:00 Montelukast Sodium (Singulair) 10 mg HS PO ; Start 09/18/19 at 21:00 Sevelamer Carbonate (Renvela) 800 mg TIDWMEALS PO ; Start 09/18/19 at 12:00 Warfarin Sodium (Coumadin) 2 mg DAILY16 PO ; Start 09/18/19 at 16:00; Status UNV Albuterol Sulfate (Ventolin Neb Soln) 2.5 mg RTQID NEB Last administered on 09/18/19at 11:51; Start 09/18/19 at 12:00 Non-Formulary Medication (Letrozole (Femara)) 1 tab DAILY PO ; Start 09/19/19 at 09:00; Status UNV Albuterol Sulfate (Ventolin Neb Soln) 2.5 mg PRN Q6HRS PRN NEB SHORTNESS OF BREATH; Start 09/18/19 at 11:15 Budesonide (Pulmicort) 0.5 mg RTBID NEB Last administered on 09/18/19at 11:50; Start 09/18/19 at 12:00 Dextrose 1,000 ml @ 75 mls/hr [id number] IV ; Start 09/18/19 at 13:00 Active Scripts Active Doxycycline Hyclate 100 Mg Tablet 100 Mg PO BID 7 Days Amox Tr-K Clv 500-125 Mg Tab (Amoxicillin/Potassium Clav) 1 Each Tablet 1 Tab PO BID 7 Days Reported Femara (Letrozole) 2.5 Mg Tablet 1 Tab PO DAILY 30 Days Lidocaine PATCH (Lidocaine) 1 Each Adh..patch 1 Each TP DAILY REMOVE AFTER 12 HOURS Nesina (Alogliptin Benzoate) 12.5 Mg Tablet 1 Tab PO DAILY 30 Days Metoprolol Succinate ( Xl ) (Metoprolol Succinate) 25 Mg Tab.er.24h 25 Tab PO DAILY Montelukast Sodium Tablet (Montelukast Sodium) 10 Mg Tablet 10 Mg PO HS Warfarin Sodium 2 Mg Tablet 2 Mg PO DAILY Amiodarone Hcl 200 Mg Tablet 1 Tab PO DAILY Renvela (Sevelamer Carbonate) 800 Mg Tablet 800 Mg PO TIDWMEALS Clopidogrel (Clopidogrel Bisulfate) 75 Mg Tablet 75 Mg PO DAILY Latanoprost 2.5 Ml Drops 1 Drop EACHEYE QHS Symbicort 160-4.5 Mcg Inhaler (Budesonide/Formoterol Fumarate) 10.2 Gm Hfa.aer.ad 2 Puff IH BID Glipizide 5 Mg Tablet 2.5 Mg PO DAILY Jacquie-Debbi Tablet (Folic Acid/Vitamin B Comp W-C) 0.8 Mg Tablet 0.8 Mg PO DAILY Atorvastatin Calcium 40 Mg Tablet 1 Tab PO DAILY Allergies Allergies: Coded Allergies: Iodine and Iodide Containing Produc (Verified Allergy, Severe, swells up & itches, 02/13/18) shellfish derived (Verified Allergy, Intermediate, "SEAFOOD", 02/13/18) ROS Review of System As per HPI, rest of the ROS is negative Physical Exam Physical Exam GENERAL:NAD HEENT: Oral cavity, pharynx clear. NECK: Supple. LUNGS: Clear to auscultation bilaterally. HEART: S1, S2. ABDOMEN: Obese, soft, nontender EXTREMITIES: No clubbing, cyanosis or gross edema. RUE-AV fistula. SKIN: no rash. NEUROLOGIC: Alert, oriented Vital Signs Vital Signs Date Time Temp Pulse Resp B/P (MAP) Pulse Ox O2 Delivery O2 Flow Rate FiO2 09/18/19 11:52 95 Nasal Cannula 1.0 09/18/19 10:51 97.7 93 18 111/67 (82) 97.7 Assessment & Plan ESRD: On HD MWF under Dr. Miller's care BP low normal, E-Lytes -K and Bicarb Normal, Clinically euvolemic Currently no indication for HD HypoGlycemia- was on Glipizide DM- per primary ANEMIA; Hgb stable Hx of Loculated right pleural effusion- s/p Thoracentesis 09/07 Labs Labs Laboratory Tests Test 09/18/19 01:30 09/18/19 01:40 09/18/19 01:54 09/18/19 03:38 Glucose (Fingerstick) 23 mg/dL (70-99) 241 mg/dL (70-99) 26 mg/dL (70-99) White Blood Count 12.0 x10^3/uL (4.0-11.0) Red Blood Count 3.24 x10^6/uL (3.50-5.40) Hemoglobin 10.1 g/dL (12.0-15.5) Hematocrit 31.7 % (36.0-47.0) Mean Corpuscular Volume 98 fL (79-100) Mean Corpuscular Hemoglobin 31 pg (25-35) Mean Corpuscular Hemoglobin Concent 32 g/dL (31-37) Red Cell Distribution Width 24.5 % (11.5-14.5) Platelet Count 224 x10^3/uL (140-400) Neutrophils (%) (Auto) 76 % (31-73) Lymphocytes (%) (Auto) 11 % (24-48) Monocytes (%) (Auto) 11 % (0-9) Eosinophils (%) (Auto) 2 % (0-3) Basophils (%) (Auto) 1 % (0-3) Neutrophils # (Auto) 9.2 x10^3/uL (1.8-7.7) Lymphocytes # (Auto) 1.3 x10^3/uL (1.0-4.8) Monocytes # (Auto) 1.3 x10^3/uL (0.0-1.1) Eosinophils # (Auto) 0.2 x10^3/uL (0.0-0.7) Basophils # (Auto) 0.1 x10^3/uL (0.0-0.2) Platelet Estimate Adequate (ADEQUATE) Polychromasia Slight Anisocytosis Mod Macrocytosis Slight Target Cells Few Sodium Level 140 mmol/L (136-145) Potassium Level 3.6 mmol/L (3.5-5.1) Chloride Level 102 mmol/L (98-107) Carbon Dioxide Level 29 mmol/L (21-32) Anion Gap 9 (6-14) Blood Urea Nitrogen 29 mg/dL (7-20) Creatinine 8.2 mg/dL (0.6-1.0) Estimated GFR (Cockcroft-Gault) 6.0 BUN/Creatinine Ratio 4 (6-20) Glucose Level 43 mg/dL (70-99) Lactic Acid Level 2.3 mmol/L (0.4-2.0) Calcium Level 9.4 mg/dL (8.5-10.1) Magnesium Level 1.9 mg/dL (1.8-2.4) Total Bilirubin 1.8 mg/dL (0.2-1.0) Aspartate Amino Transf (AST/SGOT) 39 U/L (15-37) Alanine Aminotransferase (ALT/SGPT) 71 U/L (14-59) Alkaline Phosphatase 163 U/L (46-116) Creatine Kinase 37 U/L (26-192) Creatine Kinase MB (Mass) < 0.5 ng/mL (0.0-3.6) Creatine Kinase MB Relative Index % (0-4) Troponin I Quantitative 0.098 ng/mL (0.000-0.055) Total Protein 7.1 g/dL (6.4-8.2) Albumin 2.3 g/dL (3.4-5.0) Albumin/Globulin Ratio 0.5 (1.0-1.7) Test 09/18/19 04:22 09/18/19 06:00 09/18/19 06:58 09/18/19 07:26 Glucose (Fingerstick) 83 mg/dL (70-99) 59 mg/dL (70-99) 32 mg/dL (70-99) 74 mg/dL (70-99) Lactic Acid Level 2.0 mmol/L (0.4-2.0) Troponin I Quantitative 0.092 ng/mL (0.000-0.055) Test 09/18/19 09:00 09/18/19 10:25 09/18/19 10:33 09/18/19 10:56 Prothrombin Time 22.6 SEC (11.7-14.0) Prothromb Time International Ratio 2.0 (0.8-1.1) Troponin I Quantitative 0.095 ng/mL (0.000-0.055) Glucose (Fingerstick) 20 mg/dL (70-99) 166 mg/dL (70-99) 95 mg/dL (70-99) Test 09/18/19 11:45 Glucose (Fingerstick) 44 mg/dL (70-99) Laboratory Tests Test 09/18/19 01:30 09/18/19 01:40 09/18/19 01:54 09/18/19 03:38 Glucose (Fingerstick) 23 mg/dL (70-99) 241 mg/dL (70-99) 26 mg/dL (70-99) White Blood Count 12.0 x10^3/uL (4.0-11.0) Red Blood Count 3.24 x10^6/uL (3.50-5.40) Hemoglobin 10.1 g/dL (12.0-15.5) Hematocrit 31.7 % (36.0-47.0) Mean Corpuscular Volume 98 fL (79-100) Mean Corpuscular Hemoglobin 31 pg (25-35) Mean Corpuscular Hemoglobin Concent 32 g/dL (31-37) Red Cell Distribution Width 24.5 % (11.5-14.5) Platelet Count 224 x10^3/uL (140-400) Neutrophils (%) (Auto) 76 % (31-73) Lymphocytes (%) (Auto) 11 % (24-48) Monocytes (%) (Auto) 11 % (0-9) Eosinophils (%) (Auto) 2 % (0-3) Basophils (%) (Auto) 1 % (0-3) Neutrophils # (Auto) 9.2 x10^3/uL (1.8-7.7) Lymphocytes # (Auto) 1.3 x10^3/uL (1.0-4.8) Monocytes # (Auto) 1.3 x10^3/uL (0.0-1.1) Eosinophils # (Auto) 0.2 x10^3/uL (0.0-0.7) Basophils # (Auto) 0.1 x10^3/uL (0.0-0.2) Platelet Estimate Adequate (ADEQUATE) Polychromasia Slight Anisocytosis Mod Macrocytosis Slight Target Cells Few Sodium Level 140 mmol/L (136-145) Potassium Level 3.6 mmol/L (3.5-5.1) Chloride Level 102 mmol/L (98-107) Carbon Dioxide Level 29 mmol/L (21-32) Anion Gap 9 (6-14) Blood Urea Nitrogen 29 mg/dL (7-20) Creatinine 8.2 mg/dL (0.6-1.0) Estimated GFR (Cockcroft-Gault) 6.0 BUN/Creatinine Ratio 4 (-20) Glucose Level 43 mg/dL (70-99) Lactic Acid Level 2.3 mmol/L (0.4-2.0) Calcium Level 9.4 mg/dL (8.5-10.1) Magnesium Level 1.9 mg/dL (1.8-2.4) Total Bilirubin 1.8 mg/dL (0.2-1.0) Aspartate Amino Transf (AST/SGOT) 39 U/L (15-37) Alanine Aminotransferase (ALT/SGPT) 71 U/L (14-59) Alkaline Phosphatase 163 U/L (46-116) Creatine Kinase 37 U/L (26-192) Creatine Kinase MB (Mass) < 0.5 ng/mL (0.0-3.6) Creatine Kinase MB Relative Index % (0-4) Troponin I Quantitative 0.098 ng/mL (0.000-0.055) Total Protein 7.1 g/dL (6.4-8.2) Albumin 2.3 g/dL (3.4-5.0) Albumin/Globulin Ratio 0.5 (1.0-1.7) Test 09/18/19 04:22 09/18/19 06:00 09/18/19 06:58 09/18/19 07:26 Glucose (Fingerstick) 83 mg/dL (70-99) 59 mg/dL (70-99) 32 mg/dL (70-99) 74 mg/dL (70-99) Lactic Acid Level 2.0 mmol/L (0.4-2.0) Troponin I Quantitative 0.092 ng/mL (0.000-0.055) Test 09/18/19 09:00 09/18/19 10:25 09/18/19 10:33 09/18/19 10:56 Prothrombin Time 22.6 SEC (11.7-14.0) Prothromb Time International Ratio 2.0 (0.8-1.1) Troponin I Quantitative 0.095 ng/mL (0.000-0.055) Glucose (Fingerstick) 20 mg/dL (70-99) 166 mg/dL (70-99) 95 mg/dL (70-99) Test 09/18/19 11:45 Glucose (Fingerstick) 44 mg/dL (70-99) Review All relevant outside records, renal labs, imaging studies, telemetry/EKG's were reviewed. Images Images CxR Heart is moderately enlarged. Surgical changes from aortic valve prosthesis are redemonstrated. The great vessels appear unremarkable. There is no hilar or mediastinal mass. Lungs show bilateral hazy basilar opacities with cephalization of vessels. There is been interval improvement in the right upper and right middle lobes. Small right pleural effusion is present. No pneumothorax. There are no significant osseous abnormalities. IMPRESSION: Improving lung aeration with cardiomegaly and findings of pulmonary vascular congestion and smaller right pleural effusion. CODIE RIVERA MD Sep 18, 2019 12:31
[2019-09-18] MEDS: METOPROLOL SUCC 24HR ER 25 MG TAB.ER.24H. PO SCH (12:49)
[2019-09-18] MEDS: SEVELAMER CARBONATE 800 MG TABLET. PO SCH ×2 (12:49→16:36)
[2019-09-18] MEDS: AMIODARONE HCL 200 MG TABLET. PO SCH (12:49)
[2019-09-18] MEDS: FOLIC/VIT B COMP W-C (RENAL) TABLET. PO SCH (12:49)
[2019-09-18] MEDS: IV DEXTROSE 10% 1,000 ML IV SCH (12:49)
[2019-09-18] MEDS: ATORVASTATIN CALCIUM 40 MG TABLET. PO SCH (12:49)
[2019-09-18] MEDS: CLOPIDOGREL BISULFATE 75 MG TABLET PO SCH (12:49)
[2019-09-18] MEDS: LIDOCAINE (700MG/PATCH) PATCH. TP SCH (12:50)
[2019-09-18 15:00] VITALS: BP 111/56
[2019-09-18] MEDS ORDERED: WARFARIN 2 MG TABLET. PO SCH (16:00)
[2019-09-18 19:20] VITALS: BP 100/54
[2019-09-18] MEDS: LATANOPROST 0.005% OPHTH SOLUTION 2.5ML BOTTLE. OU SCH (20:42)
[2019-09-18] MEDS: MONTELUKAST SODIUM 10 MG TABLET. PO SCH (20:42)
[2019-09-18 22:35] VITALS: BP 90/42
[2019-09-19] MEDS: IV DEXTROSE 10% 1,000 ML IV SCH ×2 (00:17→08:09)
[2019-09-19] MEDS: DEXTROSE 50% 25 GM / 50ML DISP.SYRIN. IV PRN ×15 (00:49→19:56)
--- NOTE | 2019-09-19 01:57 | NUR ---
Patient BG on 09/17 at 2316 was 70, rechecked in 30 min at 2354 B initated department policy. Wrong patient wristband scanned at time of test. Lab notified.
[2019-09-19 02:40] VITALS: BP 110/53
[2019-09-19] MEDS: BENZONATATE 100 MG CAPSULE. PO SCH ×3 (03:59→21:10)
[2019-09-19 07:00] VITALS: BP 108/49
[2019-09-19] MEDS: ALBUTEROL SULFATE 2.5 MG/3 ML NEBU. NEB SCH ×4 (07:36→20:00)
[2019-09-19] MEDS: BUDESONIDE 0.5 MG/2 ML NEBU. NEB SCH ×2 (07:36→20:00)
[2019-09-19] MEDS ORDERED: DEXTROSE IV SCH ×3 (08:00→18:00)
--- NOTE | 2019-09-19 08:02 | PDOC ---
PROGRESS NOTES Chief Complaint Chief Complaint VTE Prophylaxis Ordered VTE Prophylaxis Devices: No VTE Pharmacological Prophylaxi: Yes Assessment/Plan Assessment/Plan IMPRESSION: SEVERE RECURRENT HYPOGLYCEMIA SECONDARY TO GLYPIZIDE Improving lung aeration with cardiomegaly and findings of pulmonary vascular congestion and smaller right pleural effusion. RECENT Supratherapeutic INR improved RECENT D/C at 2.0 Loculated right pleural effusion s/p thoracentesis ESRD Enlarged left thyroid Hypoglycemia, recurrent DM2 - with hypoglycemia - stop sulfonylureas and insulin DVT/PE in August 2019 ON [facility] minimal troponin i elevation likely type ii demand ischemia morbid obesity echo in 2019 //PA pressure was estimated at 39 mmHg. c/w pulm hypertension Loculated pleural effusion on the right and rounded atelectasis at the right lower lobe. 09/18 plan admit NO insulin and STOP glypizide iv d25% at 50cc /hr insulin level consult nephrology consult cardiology INR NOW glucose checks q 2 hrs x 3 , then q 4 hrs and ac, hs serum insulin level ct pancreas r/o insulinompulm consult D/W RN Justicifation of Admission Dx: Justicifation of Admission Dx: Justifications for Admission: Justification of Admission Dx: Yes Chronic Renal Failure: Renail Failure History of Present Illness History of Present Illness Identification/Chief Complaint Chief Complaint SEEN IN ER WITH SEVERE HYPOGLYCEMIA, 64 female presents via EMS with report of hypoglycemia. Patient has been seen by EMS 3 times 09/16 B for similar. Patient reports she has been taking her insulin without being able to check her glucometer. Reports a new glucometer has been NOT functioning well for the past few days. Patient denies any nausea or vomiting. Denies dysuria. Denies trauma. recent Hospital Course: 64 yo F w/ PMHx ESRD on HD, DVT with PE, DM2, HTN, HLD, anemia, carotid stenosis, atrial fibrillation who presents to ED after she went to hemodialysis and suddenly felt cold and felt like her sugar and blood pressure had dropped. She denied any fevers or chills or sweats, but felt weak. [facility] and found to have a white count of 12.2 and at dialysis her glucose was 22 given D50. She was afebrile, but her blood pressure was in 80s/50s and glucose was 161. She underwent a chest x-ray, which showed a loculated small to moderate right pleural effusion, right mid basilar consolidations, atelectasis or pneumonia, Past Medical History Past Medical History Past Medical History Past Medical History Past Medical History: CAD, CHF, COPD, Diabetes-Type II, High Cholesterol, Hypertension, MO, Renal Disease, Renal Failure, Other Additional Past Medical Histor: HYPOGLYCEMIA,OBESITY, HD M/W/F Past Surgical History: Other Additional Past Surgical Histo: hemodialysis in left upper arm (NOT IN USE),R CAROTID, R, L ARM GRAFT DIALY Smoking Status: Never Smoker Alcohol Use: None Drug Use: None FHX OBESITY Cardiovascular: AFIB, CAD, CHF, HTN, Hyperlipidemia, Aortic stenosis Pulmonary: COPD, Other CENTRAL NERVOUS SYSTEM: Periperal neuropathy GI: No pertinent hx Heme/Onc: Anemia NOS, Other Musculoskeletal: Osteoarthritis, Other Renal/: Chronic renal failure Endocrine: Diabetes Vitals Vitals Vital Signs Date Time Temp Pulse Resp B/P (MAP) Pulse Ox O2 Delivery O2 Flow Rate FiO2 09/19/19 07:37 98 Nasal Cannula 2.0 09/19/19 02:40 98.0 93 20 110/53 (72) 98.0 Physical Exam General: Alert, Oriented X3, Cooperative, No acute distress Heart: Regular rate, Normal S1 Lungs: Clear, Other Abdomen: Normal bowel sounds Extremities: No clubbing, No cyanosis Labs LABS DICATION: Reason: possible insulinoma / Spl. Instructions: / History: TECHNIQUE: Multi-detector row CT images were acquired from the lung bases through the abdomen and pelvis without the use of IV contrast. Sagittal and coronal images were acquired from the transaxial data. All CT scans performed at this facility utilize dose optimization techniques as appropriate to the exam, including the following: Automated exposure control and adjustment of the mA and/or KV according to patient size (this includes techniques or standardized protocols for targeted exams where dose is indication/reason for exam). ORAL CONTRAST: None COMPARISON: 05/07/[address] FINDINGS: The absence of IV contrast limits evaluation of soft tissue pathology. LOWER CHEST: Small pericardial effusion measuring up to 6 mm. Interval rounded atelectasis in the right lower lobe and small loculated right pleural effusion. The patient's left breast shows diffuse skin thickening and parenchymal edema. This is new or far more conspicuous in the interval. Correlate for any evidence of mastitis. LIVER: Unremarkable BILIARY SYSTEM: Gallbladder contains layering density that could reflect sludge. Bile ducts are not dilated. PANCREAS: Unremarkable SPLEEN: Unremarkable ADRENALS: Unremarkable KIDNEYS & URETERS: Atrophic kidneys bilaterally. BLADDER: Decompressed. Otherwise unremarkable. REPRODUCTIVE ORGANS: Unremarkable GASTROINTESTINAL: There is suggestion of mild rectal wall thickening. Stomach, small bowel, and colon are otherwise unremarkable. Appendix is not well seen but there are no findings suggestive of acute appendicitis. MESENTERY/PERITONEUM/RETROPERITONEUM: Unremarkable VASCULAR: Extensive arterial calcifications both in the abdominal aorta and its major branch vessels down to the small vessels of the distal mesenteric arteries and pelvic inflow and outflow vessels. No aneurysm. LYMPH NODES: No adenopathy OSSEOUS & SOFT TISSUES: Unremarkable IMPRESSION: 1. Exam limited by lack of IV contrast but no mass identified suspicious for an insulinoma. Consider correlation with contrast enhanced CT if clinically feasible, or abdominal MRI, with or without IV contrast. 2. Marked edema in the left breast. Correlate for any evidence of mastitis. 3. Loculated pleural effusion on the right and rounded atelectasis at the right lower lobe. Electronically signed by: Luis Gil MD (09/19/2019 9:30 AM) [facility] [place] DICTATED and SIGNED BY: LUIS GIL MD DATE: 09/19/19929 Laboratory Tests Test 09/18/19 09:00 09/18/19 10:25 09/18/19 10:33 09/18/19 10:56 Prothrombin Time 22.6 SEC (11.7-14.0) Prothromb Time International Ratio 2.0 (0.8-1.1) Troponin I Quantitative 0.095 ng/mL (0.000-0.055) Glucose (Fingerstick) 20 mg/dL (70-99) 166 mg/dL (70-99) 95 mg/dL (70-99) Test 09/18/19 11:45 09/18/19 13:27 09/18/19 14:24 09/18/19 15:08 Glucose (Fingerstick) 44 mg/dL (70-99) 45 mg/dL (70-99) 100 mg/dL (70-99) 87 mg/dL (70-99) Test 09/18/19 15:40 09/18/19 16:27 09/18/19 17:36 09/18/19 18:15 Glucose (Fingerstick) 73 mg/dL (70-99) 43 mg/dL (70-99) 51 mg/dL (70-99) 112 mg/dL (70-99) Test 09/18/19 19:26 09/18/19 19:45 09/18/19 20:36 09/18/19 20:57 Glucose (Fingerstick) 50 mg/dL (70-99) 101 mg/dL (70-99) 29 mg/dL (70-99) 99 mg/dL (70-99) Test 09/18/19 21:30 09/18/19 21:44 09/18/19 22:26 09/18/19 22:37 Glucose (Fingerstick) 40 mg/dL (70-99) 123 mg/dL (70-99) 45 mg/dL (70-99) 144 mg/dL (70-99) Test 09/19/19 00:07 09/19/19 00:48 09/19/19 01:00 09/19/19 01:31 Glucose (Fingerstick) 118 mg/dL (70-99) 37 mg/dL (70-99) 118 mg/dL (70-99) 47 mg/dL (70-99) Test 09/19/19 01:47 09/19/19 02:28 09/19/19 02:40 09/19/19 03:08 Glucose (Fingerstick) 118 mg/dL (70-99) 37 mg/dL (70-99) 121 mg/dL (70-99) 67 mg/dL (70-99) Test 09/19/19 03:20 09/19/19 03:52 09/19/19 04:04 09/19/19 04:33 Glucose (Fingerstick) 94 mg/dL (70-99) 54 mg/dL (70-99) 87 mg/dL (70-99) 65 mg/dL (70-99) Test 09/19/19 04:42 09/19/19 05:14 09/19/19 05:36 09/19/19 06:06 Glucose (Fingerstick) 87 mg/dL (70-99) 65 mg/dL (70-99) 78 mg/dL (70-99) 41 mg/dL (70-99) Test 09/19/19 06:18 09/19/19 06:50 09/19/19 07:29 Glucose (Fingerstick) 87 mg/dL (70-99) 44 mg/dL (70-99) 76 mg/dL (70-99) Assessment and Plan Assessmemt and Plan Problems Medical Problems: (1) Elevated troponin Status: Acute (2) Hypoglycemia Status: Acute (3) Lactic acidosis Status: Acute Comment Review of Relevant I have reviewed the following items caroline (where applicable) has been applied. Labs Laboratory Tests Test 09/18/19 01:30 09/18/19 01:40 09/18/19 01:54 09/18/19 03:38 Glucose (Fingerstick) 23 mg/dL (70-99) 241 mg/dL (70-99) 26 mg/dL (70-99) White Blood Count 12.0 x10^3/uL (4.0-11.0) Red Blood Count 3.24 x10^6/uL (3.50-5.40) Hemoglobin 10.1 g/dL (12.0-15.5) Hematocrit 31.7 % (36.0-47.0) Mean Corpuscular Volume 98 fL (79-100) Mean Corpuscular Hemoglobin 31 pg (25-35) Mean Corpuscular Hemoglobin Concent 32 g/dL (31-37) Red Cell Distribution Width 24.5 % (11.5-14.5) Platelet Count 224 x10^3/uL (140-400) Neutrophils (%) (Auto) 76 % (31-73) Lymphocytes (%) (Auto) 11 % (24-48) Monocytes (%) (Auto) 11 % (0-9) Eosinophils (%) (Auto) 2 % (0-3) Basophils (%) (Auto) 1 % (0-3) Neutrophils # (Auto) 9.2 x10^3/uL (1.8-7.7) Lymphocytes # (Auto) 1.3 x10^3/uL (1.0-4.8) Monocytes # (Auto) 1.3 x10^3/uL (0.0-1.1) Eosinophils # (Auto) 0.2 x10^3/uL (0.0-0.7) Basophils # (Auto) 0.1 x10^3/uL (0.0-0.2) Platelet Estimate Adequate (ADEQUATE) Polychromasia Slight Anisocytosis Mod Macrocytosis Slight Target Cells Few Sodium Level 140 mmol/L (136-145) Potassium Level 3.6 mmol/L (3.5-5.1) Chloride Level 102 mmol/L (98-107) Carbon Dioxide Level 29 mmol/L (21-32) Anion Gap 9 (6-14) Blood Urea Nitrogen 29 mg/dL (7-20) Creatinine 8.2 mg/dL (0.6-1.0) Estimated GFR (Cockcroft-Gault) 6.0 BUN/Creatinine Ratio 4 (6-20) Glucose Level 43 mg/dL (70-99) Lactic Acid Level 2.3 mmol/L (0.4-2.0) Calcium Level 9.4 mg/dL (8.5-10.1) Magnesium Level 1.9 mg/dL (1.8-2.4) Total Bilirubin 1.8 mg/dL (0.2-1.0) Aspartate Amino Transf (AST/SGOT) 39 U/L (15-37) Alanine Aminotransferase (ALT/SGPT) 71 U/L (14-59) Alkaline Phosphatase 163 U/L (46-116) Creatine Kinase 37 U/L (26-192) Creatine Kinase MB (Mass) < 0.5 ng/mL (0.0-3.6) Creatine Kinase MB Relative Index % (0-4) Troponin I Quantitative 0.098 ng/mL (0.000-0.055) Total Protein 7.1 g/dL (6.4-8.2) Albumin 2.3 g/dL (3.4-5.0) Albumin/Globulin Ratio 0.5 (1.0-1.7) Test 09/18/19 04:22 09/18/19 06:00 09/18/19 06:58 09/18/19 07:26 Glucose (Fingerstick) 83 mg/dL (70-99) 59 mg/dL (70-99) 32 mg/dL (70-99) 74 mg/dL (70-99) Lactic Acid Level 2.0 mmol/L (0.4-2.0) Troponin I Quantitative 0.092 ng/mL (0.000-0.055) Test 09/18/19 09:00 09/18/19 10:25 09/18/19 10:33 09/18/19 10:56 Prothrombin Time 22.6 SEC (11.7-14.0) Prothromb Time International Ratio 2.0 (0.8-1.1) Troponin I Quantitative 0.095 ng/mL (0.000-0.055) Glucose (Fingerstick) 20 mg/dL (70-99) 166 mg/dL (70-99) 95 mg/dL (70-99) Test 09/18/19 11:45 09/18/19 13:27 09/18/19 14:24 09/18/19 15:08 Glucose (Fingerstick) 44 mg/dL (70-99) 45 mg/dL (70-99) 100 mg/dL (70-99) 87 mg/dL (70-99) Test 09/18/19 15:40 09/18/19 16:27 09/18/19 17:36 09/18/19 18:15 Glucose (Fingerstick) 73 mg/dL (70-99) 43 mg/dL (70-99) 51 mg/dL (70-99) 112 mg/dL (70-99) Test 09/18/19 19:26 09/18/19 19:45 09/18/19 20:36 09/18/19 20:57 Glucose (Fingerstick) 50 mg/dL (70-99) 101 mg/dL (70-99) 29 mg/dL (70-99) 99 mg/dL (70-99) Test 09/18/19 21:30 09/18/19 21:44 09/18/19 22:26 09/18/19 22:37 Glucose (Fingerstick) 40 mg/dL (70-99) 123 mg/dL (70-99) 45 mg/dL (70-99) 144 mg/dL (70-99) Test 09/19/19 00:07 09/19/19 00:48 09/19/19 01:00 09/19/19 01:31 Glucose (Fingerstick) 118 mg/dL (70-99) 37 mg/dL (70-99) 118 mg/dL (70-99) 47 mg/dL (70-99) Test 09/19/19 01:47 09/19/19 02:28 09/19/19 02:40 09/19/19 03:08 Glucose (Fingerstick) 118 mg/dL (70-99) 37 mg/dL (70-99) 121 mg/dL (70-99) 67 mg/dL (70-99) Test 09/19/19 03:20 09/19/19 03:52 09/19/19 04:04 09/19/19 04:33 Glucose (Fingerstick) 94 mg/dL (70-99) 54 mg/dL (70-99) 87 mg/dL (70-99) 65 mg/dL (70-99) Test 09/19/19 04:42 09/19/19 05:14 09/19/19 05:36 09/19/19 06:06 Glucose (Fingerstick) 87 mg/dL (70-99) 65 mg/dL (70-99) 78 mg/dL (70-99) 41 mg/dL (70-99) Test 09/19/19 06:18 09/19/19 06:50 09/19/19 07:29 Glucose (Fingerstick) 87 mg/dL (70-99) 44 mg/dL (70-99) 76 mg/dL (70-99) Laboratory Tests Test 09/18/19 09:00 09/18/19 10:25 09/18/19 10:33 09/18/19 10:56 Prothrombin Time 22.6 SEC (11.7-14.0) Prothromb Time International Ratio 2.0 (0.8-1.1) Troponin I Quantitative 0.095 ng/mL (0.000-0.055) Glucose (Fingerstick) 20 mg/dL (70-99) 166 mg/dL (70-99) 95 mg/dL (70-99) Test 09/18/19 11:45 09/18/19 13:27 09/18/19 14:24 09/18/19 15:08 Glucose (Fingerstick) 44 mg/dL (70-99) 45 mg/dL (70-99) 100 mg/dL (70-99) 87 mg/dL (70-99) Test 09/18/19 15:40 09/18/19 16:27 09/18/19 17:36 09/18/19 18:15 Glucose (Fingerstick) 73 mg/dL (70-99) 43 mg/dL (70-99) 51 mg/dL (70-99) 112 mg/dL (70-99) Test 09/18/19 19:26 09/18/19 19:45 09/18/19 20:36 09/18/19 20:57 Glucose (Fingerstick) 50 mg/dL (70-99) 101 mg/dL (70-99) 29 mg/dL (70-99) 99 mg/dL (70-99) Test 09/18/19 21:30 09/18/19 21:44 09/18/19 22:26 09/18/19 22:37 Glucose (Fingerstick) 40 mg/dL (70-99) 123 mg/dL (70-99) 45 mg/dL (70-99) 144 mg/dL (70-99) Test 09/19/19 00:07 09/19/19 00:48 09/19/19 01:00 09/19/19 01:31 Glucose (Fingerstick) 118 mg/dL (70-99) 37 mg/dL (70-99) 118 mg/dL (70-99) 47 mg/dL (70-99) Test 09/19/19 01:47 09/19/19 02:28 09/19/19 02:40 09/19/19 03:08 Glucose (Fingerstick) 118 mg/dL (70-99) 37 mg/dL (70-99) 121 mg/dL (70-99) 67 mg/dL (70-99) Test 09/19/19 03:20 09/19/19 03:52 09/19/19 04:04 09/19/19 04:33 Glucose (Fingerstick) 94 mg/dL (70-99) 54 mg/dL (70-99) 87 mg/dL (70-99) 65 mg/dL (70-99) Test 09/19/19 04:42 09/19/19 05:14 09/19/19 05:36 09/19/19 06:06 Glucose (Fingerstick) 87 mg/dL (70-99) 65 mg/dL (70-99) 78 mg/dL (70-99) 41 mg/dL (70-99) Test 09/19/19 06:18 09/19/19 06:50 09/19/19 07:29 Glucose (Fingerstick) 87 mg/dL (70-99) 44 mg/dL (70-99) 76 mg/dL (70-99) Medications Current Medications Dextrose (Dextrose 50%-Water Syringe) 25 gm 1X ONCE IV Last administered on 09/18/19 01:37; Start 09/18/19 at 01:30; Stop 09/18/19 at 01:41; Status DC Insulin Human Lispro (HumaLOG) 0-5 UNITS TIDWMEALS SQ ; Start 09/18/19 at 08:00; Stop 09/18/19 at 23:06; Status DC Dextrose (Dextrose 50%-Water Syringe) 12.5 gm PRN Q15MIN PRN IV SEE COMMENTS Last administered on 09/19/19at 06:51; Start 09/18/19 at 01:45 Ondansetron HCl (Zofran) 4 mg PRN Q8HRS PRN IV NAUSEA/VOMITING Last administered on 09/19/19at 00:03; Start 09/18/19 at 01:45; Stop 09/19/19 at 01:44; Status DC Aspirin (Jeanette Aspirin) 325 mg 1X ONCE PO Last administered on 09/18/19at 03:47; Start 09/18/19 at 03:15; Stop 09/18/19 at 03:16; Status DC Dextrose 500 ml @ 75 mls/hr 1X ONCE IV ; Start 09/18/19 at 03:45; Stop 08/25 07/13 at 03:52; Status DC Dextrose 1,000 ml @ 75 mls/hr 1X ONCE IV Last administered on 09/18/19at 03:55; Start 09/18/19 at 04:00; Stop 09/18/19 at 17:19; Status DC Pharmacy Consult (C.diff Med Screen By Rx) 1 each 1X ONCE [facility] ; Start 09/18/19 at 09:00; Stop 09/18/19 at 09:01; Status DC Amiodarone HCl (Cordarone) 200 mg DAILY PO Last administered on 09/18/19at 12:49; Start 09/18/19 at 12:00 Atorvastatin Calcium (Lipitor) 40 mg DAILY PO Last administered on 09/18/19at 12:49; Start 09/18/19 at 12:00 Clopidogrel Bisulfate (Plavix) 75 mg DAILY PO Last administered on 09/18/19 12:49; Start 09/18/19 at 12:00 Vitamin B Complex/ Vitamin C (Jacquie-Debbi) 1 tab DAILY PO Last administered on 09/18/19 12:49; Start 09/18/19 at 12:00 Latanoprost (Xalatan) 1 drop QHS OU Last administered on 09/18/19 20:42; Start 09/18/19 at 21:00 Lidocaine (Lidoderm) 1 patch DAILY TP Last administered on 09/18/19 12:50; Start 09/18/19 at 12:00 Metoprolol Succinate (Toprol Xl) 25 mg DAILY PO Last administered on 09/18/19 12:49; Start 09/18/19 at 12:00 Montelukast Sodium (Singulair) 10 mg HS PO Last administered on 09/18/19 20:42; Start 09/18/19 at 21:00 Sevelamer Carbonate (Renvela) 800 mg TIDWMEALS PO Last administered on 09/18/19 16:36; Start 09/18/19 at 12:00 Warfarin Sodium (Coumadin) 2 mg DAILY16 PO Last administered on 09/18/19 16:27; Start 09/18/19 at 16:00 Albuterol Sulfate (Ventolin Neb Soln) 2.5 mg RTQID NEB Last administered on 09/19/19at 07:36; Start 09/18/19 at 12:00 Non-Formulary Medication (Letrozole (Femara)) 1 tab DAILY PO ; Start 09/19/19 at 09:00; Stop 09/19/19 at 07:38; Status DC Albuterol Sulfate (Ventolin Neb Soln) 2.5 mg PRN Q6HRS PRN NEB SHORTNESS OF BREATH; Start 09/18/19 at 11:15 Budesonide (Pulmicort) 0.5 mg RTBID NEB Last administered on 09/19/19at 07:36; Start 09/18/19 at 12:00 Dextrose 1,000 ml @ 115 mls/hr Q8H42M IV Last administered on 09/19/19at 00:17; Start 09/18/19 at 13:00 Warfarin Sodium (Coumadin Per Physician) 1 each PRN DAILY PRN MC SEE COMMENTS; Start 09/18/19 at 13:45 Benzonatate (Tessalon Perle) 100 mg BID PO Last administered on 09/19/19at 03:59; Start 09/19/19 at 04:00 Ondansetron HCl (Zofran) 4 mg PRN Q8HRS PRN IVP NAUSEA/VOMITING; Start 09/19/19 at 04:00 Dextrose 150 ml/ Dextrose 650 ml @ 30 mls/hr [id number] IV Last administered on 09/19/19at 07:42; Start 09/19/19 at 08:00 Active Scripts Active Doxycycline Hyclate 100 Mg Tablet 100 Mg PO BID 7 Days Amox Tr-K Clv 500-125 Mg Tab (Amoxicillin/Potassium Clav) 1 Each Tablet 1 Tab PO BID 7 Days Reported Femara (Letrozole) 2.5 Mg Tablet 1 Tab PO DAILY 30 Days Lidocaine PATCH (Lidocaine) 1 Each Adh..patch 1 Each TP DAILY REMOVE AFTER 12 HOURS Nesina (Alogliptin Benzoate) 12.5 Mg Tablet 1 Tab PO DAILY 30 Days Metoprolol Succinate ( Xl ) (Metoprolol Succinate) 25 Mg Tab.er.24h 25 Tab PO DAILY Montelukast Sodium Tablet (Montelukast Sodium) 10 Mg Tablet 10 Mg PO HS Warfarin Sodium 2 Mg Tablet 2 Mg PO DAILY Amiodarone Hcl 200 Mg Tablet 1 Tab PO DAILY Renvela (Sevelamer Carbonate) 800 Mg Tablet 800 Mg PO TIDWMEALS Clopidogrel (Clopidogrel Bisulfate) 75 Mg Tablet 75 Mg PO DAILY Latanoprost 2.5 Ml Drops 1 Drop EACHEYE QHS Symbicort 160-4.5 Mcg Inhaler (Budesonide/Formoterol Fumarate) 10.2 Gm Hfa.aer.ad 2 Puff IH BID Glipizide 5 Mg Tablet 2.5 Mg PO DAILY Jacquie-Debbi Tablet (Folic Acid/Vitamin B Comp W-C) 0.8 Mg Tablet 0.8 Mg PO DAILY Atorvastatin Calcium 40 Mg Tablet 1 Tab PO DAILY Vitals/I & O Vital Sign - Last 24 Hours 09/18/19 09/18/19 09/18/19 09/18/19 10:51 11:52 12:49 12:49 Temp 97.7 97.7 Pulse 93 93 93 Resp 18 B/P (MAP) 111/67 (82) 111/67 111/67 Pulse Ox 94 95 O2 Delivery Room Air Nasal Cannula O2 Flow Rate 1.0 09/18/19 09/18/19 09/18/19 09/18/19 15:00 15:39 19:20 19:57 Temp 98.1 98.0 98.1 98.0 Pulse 95 98 Resp 18 20 B/P (MAP) 111/56 (74) 100/54 (69) Pulse Ox 97 95 98 100 O2 Delivery Room Air Nasal Cannula Nasal Cannula Nasal Cannula O2 Flow Rate 2.0 2.0 2.0 09/18/19 09/18/19 09/18/19 09/19/19 19:59 20:00 22:35 02:40 Temp 98.1 98.0 98.1 98.0 Pulse 89 93 Resp 20 20 B/P (MAP) 90/42 (58) 110/53 (72) Pulse Ox 100 98 97 O2 Delivery Nasal Cannula Nasal Cannula Nasal Cannula Nasal Cannula O2 Flow Rate 2.0 2.0 2.0 2.0 09/19/19 07:37 Pulse Ox 98 O2 Delivery Nasal Cannula O2 Flow Rate 2.0 Intake and Output 09/18/19 09/18/19 09/19/19 15:00 23:00 07:00 Intake Total 480 ml 340 ml 100 ml Output Total 100 ml Balance 480 ml 340 ml 0 ml Justicifation of Admission Dx: Justifications for Admission: Justification of Admission Dx: Yes Chronic Renal Failure: Renail Failure CATE ALBERTO MD Sep 19, 2019 08:02
[2019-09-19] MEDS: SEVELAMER CARBONATE 800 MG TABLET. PO SCH ×3 (08:08→17:00)
[2019-09-19] MEDS: AMIODARONE HCL 200 MG TABLET. PO SCH (08:09)
[2019-09-19] MEDS: FOLIC/VIT B COMP W-C (RENAL) TABLET. PO SCH (08:09)
[2019-09-19] MEDS: METOPROLOL SUCC 24HR ER 25 MG TAB.ER.24H. PO SCH (08:09)
[2019-09-19] MEDS: CLOPIDOGREL BISULFATE 75 MG TABLET PO SCH (08:09)
[2019-09-19] MEDS: ATORVASTATIN CALCIUM 40 MG TABLET. PO SCH (08:09)
[2019-09-19] MEDS: LIDOCAINE (700MG/PATCH) PATCH. TP SCH (08:10)
[2019-09-19] MEDS: ONDANSETRON PF 4 MG/2 ML VIAL. IVP PRN ×3 (08:47→23:59)
[2019-09-19] MEDS ORDERED: LETROZOLE PO SCH (09:00)
--- NOTE | 2019-09-19 09:34 | RAD ---
EXAM: CT Abdomen and Pelvis without IV contrast INDICATION: Reason: possible insulinoma / Spl. Instructions: / History: TECHNIQUE: Multi-detector row CT images were acquired from the lung bases through the abdomen and pelvis without the use of IV contrast. Sagittal and coronal images were acquired from the transaxial data. All CT scans performed at this facility utilize dose optimization techniques as appropriate to the exam, including the following: Automated exposure control and adjustment of the mA and/or KV according to patient size (this includes techniques or standardized protocols for targeted exams where dose is indication/reason for exam). ORAL CONTRAST: None COMPARISON: 05/07/[address] FINDINGS: The absence of IV contrast limits evaluation of soft tissue pathology. LOWER CHEST: Small pericardial effusion measuring up to 6 mm. Interval rounded atelectasis in the right lower lobe and small loculated right pleural effusion. The patient's left breast shows diffuse skin thickening and parenchymal edema. This is new or far more conspicuous in the interval. Correlate for any evidence of mastitis. LIVER: Unremarkable BILIARY SYSTEM: Gallbladder contains layering density that could reflect sludge. Bile ducts are not dilated. PANCREAS: Unremarkable SPLEEN: Unremarkable ADRENALS: Unremarkable KIDNEYS & URETERS: Atrophic kidneys bilaterally. BLADDER: Decompressed. Otherwise unremarkable. REPRODUCTIVE ORGANS: Unremarkable GASTROINTESTINAL: There is suggestion of mild rectal wall thickening. Stomach, small bowel, and colon are otherwise unremarkable. Appendix is not well seen but there are no findings suggestive of acute appendicitis. MESENTERY/PERITONEUM/RETROPERITONEUM: Unremarkable VASCULAR: Extensive arterial calcifications both in the abdominal aorta and its major branch vessels down to the small vessels of the distal mesenteric arteries and pelvic inflow and outflow vessels. No aneurysm. LYMPH NODES: No adenopathy OSSEOUS & SOFT TISSUES: Unremarkable IMPRESSION: 1. Exam limited by lack of IV contrast but no mass identified suspicious for an insulinoma. Consider correlation with contrast enhanced CT if clinically feasible, or abdominal MRI, with or without IV contrast. 2. Marked edema in the left breast. Correlate for any evidence of mastitis. 3. Loculated pleural effusion on the right and rounded atelectasis at the right lower lobe. Electronically signed by: Nhan Gil MD (09/19/2019 9:30 AM) [facility] [place]
[2019-09-19 10:58] VITALS: BP 98/45
--- NOTE | 2019-09-19 12:48 | PDOC2 ---
CONSULT Date of Consult Date of Consult DATE: 09/19/19 TIME: 12:47 Reason for Consult Reason for Consult: Elevated troponin level Referring Physician Referring Physician: Dr. Dailey Identification/Chief Complaint Chief Complaint Hypoglycemia Source Source: Chart review, Patient History of Present Illness Reason for Visit: 64-year-old female with history of coronary artery disease, PAF s/p ablation, s/p TAVR and chronic systolic heart failure usually followed by cardiology at [facility] was brought by EMS for severe recurrent hypoglycemia. Apparently, she has been taking insulin without being able to check her blood sugar levels due to faulty glucometer. Her troponin level was slightly elevated prompting cardiology consultation. She denied any chest pain, orthopnea/PND, palpitations or syncope. Of note, she had slightly elevated troponin during recent admission earlier this month. Past Medical History Cardiovascular: AFIB, CAD, CHF, HTN, Hyperlipidemia, Aortic stenosis Pulmonary: COPD, Other CENTRAL NERVOUS SYSTEM: Periperal neuropathy GI: No pertinent hx Heme/Onc: Anemia NOS, Other Musculoskeletal: Osteoarthritis, Other Renal/: Chronic renal failure Endocrine: Diabetes Past Surgical History Past Surgical History: Hernia Repair, Other Family History Family History: Cancer, Hypertension Social History No ALCOHOL: none Drugs: None Lives: with Family Current Problem List Problem List Problems Medical Problems: (1) Elevated troponin Status: Acute (2) Hypoglycemia Status: Acute (3) Lactic acidosis Status: Acute Current Medications Current Medications Current Medications Dextrose (Dextrose 50%-Water Syringe) 25 gm 1X ONCE IV Last administered on 09/18/19at 01:37; Start 09/18/19 at 01:30; Stop 09/18/19 at 01:41; Status DC Insulin Human Lispro (HumaLOG) 0-5 UNITS TIDWMEALS SQ ; Start 09/18/19 at 08:00; Stop 09/18/19 at 23:06; Status DC Dextrose (Dextrose 50%-Water Syringe) 12.5 gm PRN Q15MIN PRN IV SEE COMMENTS Last administered on 09/19/19at 12:22; Start 09/18/19 at 01:45 Ondansetron HCl (Zofran) 4 mg PRN Q8HRS PRN IV NAUSEA/VOMITING Last administered on 09/19/19at 00:03; Start 09/18/19 at 01:45; Stop 09/19/19 at 01:44; Status DC Aspirin (Jeanette Aspirin) 325 mg 1X ONCE PO Last administered on 09/18/19 03:47; Start 09/18/19 at 03:15; Stop 09/18/19 at 03:16; Status DC Dextrose 500 ml @ 75 mls/hr 1X ONCE IV ; Start 09/18/19 at 03:45; Stop 09/18/19 at 03:52; Status DC Dextrose 1,000 ml @ 75 mls/hr 1X ONCE IV Last administered on 09/18/19at 03:55; Start 09/18/19 at 04:00; Stop 09/18/19 at 17:19; Status DC Pharmacy Consult (C.diff Med Screen By Rx) 1 each 1X ONCE MC ; Start 09/18/19 at 09:00; Stop 09/18/19 at 09:01; Status DC Amiodarone HCl (Cordarone) 200 mg DAILY PO Last administered on 09/19/19 08:09; Start 09/18/19 at 12:00 Atorvastatin Calcium (Lipitor) 40 mg DAILY PO Last administered on 09/19/19at 08:09; Start 09/18/19 at 12:00 Clopidogrel Bisulfate (Plavix) 75 mg DAILY PO Last administered on 09/19/19 08:09; Start 09/18/19 at 12:00 Vitamin B Complex/ Vitamin C (Jacquie-Debbi) 1 tab DAILY PO Last administered on 09/19/19 08:09; Start 09/18/19 at 12:00 Latanoprost (Xalatan) 1 drop QHS OU Last administered on 09/18/19 20:42; Start 09/18/19 at 21:00 Lidocaine (Lidoderm) 1 patch DAILY TP Last administered on 09/18/19at 12:50; Start 09/18/19 at 12:00 Metoprolol Succinate (Toprol Xl) 25 mg DAILY PO Last administered on 09/19/19 08:09; Start 09/18/19 at 12:00 Montelukast Sodium (Singulair) 10 mg HS PO Last administered on 09/18/19 20:42; Start 09/18/19 at 21:00 Sevelamer Carbonate (Renvela) 800 mg TIDWMEALS PO Last administered on 09/19/19at 12:22; Start 09/18/19 at 12:00 Warfarin Sodium (Coumadin) 2 mg DAILY16 PO Last administered on 09/18/19at 16:27; Start 09/18/19 at 16:00; Stop 09/19/19 at 12:33; Status DC Albuterol Sulfate (Ventolin Neb Soln) 2.5 mg RTQID NEB Last administered on 09/19/19at 11:42; Start 09/18/19 at 12:00 Non-Formulary Medication (Letrozole (Femara)) 1 tab DAILY PO ; Start 09/19/19 at 09:00; Stop 09/19/19 at 07:38; Status DC Albuterol Sulfate (Ventolin Neb Soln) 2.5 mg PRN Q6HRS PRN NEB SHORTNESS OF BREATH; Start 09/18/19 at 11:15 Budesonide (Pulmicort) 0.5 mg RTBID NEB Last administered on 09/19/19at 07:36; Start 09/18/19 at 12:00 Dextrose 1,000 ml @ 115 mls/hr Q8H42M IV Last administered on 09/19/19at 00:17; Start 09/18/19 at 13:00 Warfarin Sodium (Coumadin Per Physician) 1 each PRN DAILY PRN MC SEE COMMENTS; Start 09/18/19 at 13:45; Stop 09/19/19 at 12:33; Status DC Benzonatate (Tessalon Perle) 100 mg BID PO Last administered on 09/19/19at 08:0 8; Start 09/19/19 at 04:00 Ondansetron HCl (Zofran) 4 mg PRN Q8HRS PRN IVP NAUSEA/VOMITING Last administered on 09/19/19at 08:47; Start 09/19/19 at 04:00 Dextrose 150 ml/ Dextrose 650 ml @ 50 mls/hr Q13H IV Last administered on 09/19/19at 07:42; Start 09/19/19 at 08:00 Apixaban (Eliquis) 5 mg BID PO ; Start 09/19/19 at 21:00 Info (Anti-Coagulation Monitoring By Pharmacy) 1 each PRN DAILY PRN MC SEE COMMENTS; Start 09/19/19 at 12:45 Active Scripts Active Doxycycline Hyclate 100 Mg Tablet 100 Mg PO BID 7 Days Amox Tr-K Clv 500-125 Mg Tab (Amoxicillin/Potassium Clav) 1 Each Tablet 1 Tab PO BID 7 Days Reported Femara (Letrozole) 2.5 Mg Tablet 1 Tab PO DAILY 30 Days Lidocaine PATCH (Lidocaine) 1 Each Adh..patch 1 Each TP DAILY REMOVE AFTER 12 HOURS Nesina (Alogliptin Benzoate) 12.5 Mg Tablet 1 Tab PO DAILY 30 Days Metoprolol Succinate ( Xl ) (Metoprolol Succinate) 25 Mg Tab.er.24h 25 Tab PO DAILY Montelukast Sodium Tablet (Montelukast Sodium) 10 Mg Tablet 10 Mg PO HS Warfarin Sodium 2 Mg Tablet 2 Mg PO DAILY Amiodarone Hcl 200 Mg Tablet 1 Tab PO DAILY Renvela (Sevelamer Carbonate) 800 Mg Tablet 800 Mg PO TIDWMEALS Clopidogrel (Clopidogrel Bisulfate) 75 Mg Tablet 75 Mg PO DAILY Latanoprost 2.5 Ml Drops 1 Drop EACHEYE QHS Symbicort 160-4.5 Mcg Inhaler (Budesonide/Formoterol Fumarate) 10.2 Gm Hfa.aer.ad 2 Puff IH BID Glipizide 5 Mg Tablet 2.5 Mg PO DAILY Jacquie-Debbi Tablet (Folic Acid/Vitamin B Comp W-C) 0.8 Mg Tablet 0.8 Mg PO DAILY Atorvastatin Calcium 40 Mg Tablet 1 Tab PO DAILY Allergies Allergies: Coded Allergies: Iodine and Iodide Containing Produc (Verified Allergy, Severe, swells up & itches, 02/13/18) shellfish derived (Verified Allergy, Intermediate, "SEAFOOD", 02/13/18) ROS Eyes: No Loss of vision HEENT: No: Epistaxis Respiratory: No: Hemoptysis, Shortness of breath Cardiovascular: No Chest Pain, No Palpitations Gastrointestinal: No Vomiting, No Diarrhea Genitourinary: No Hematuria Neurological: No Seizures Skin: No Rash Physical Exam General: Alert, No acute distress HEENT: Atraumatic Lungs: Clear to auscultation Heart: Regular rate Abdomen: Soft Extremities: No edema Neuro: Normal speech Psych/Mental Status: Mood NL Vitals VITALS Vital Signs Date Time Temp Pulse Resp B/P (MAP) Pulse Ox O2 Delivery O2 Flow Rate FiO2 09/19/19 11:43 97 Nasal Cannula 2.0 09/19/19 10:58 98.4 88 20 98/45 (62) 98.4 Labs Labs Laboratory Tests Test 09/18/19 01:30 09/18/19 01:40 09/18/19 01:54 09/18/19 03:38 Glucose (Fingerstick) 23 mg/dL (70-99) 241 mg/dL (70-99) 26 mg/dL (70-99) White Blood Count 12.0 x10^3/uL (4.0-11.0) Red Blood Count 3.24 x10^6/uL (3.50-5.40) Hemoglobin 10.1 g/dL (12.0-15.5) Hematocrit 31.7 % (36.0-47.0) Mean Corpuscular Volume 98 fL (79-100) Mean Corpuscular Hemoglobin 31 pg (25-35) Mean Corpuscular Hemoglobin Concent 32 g/dL (31-37) Red Cell Distribution Width 24.5 % (11.5-14.5) Platelet Count 224 x10^3/uL (140-400) Neutrophils (%) (Auto) 76 % (31-73) Lymphocytes (%) (Auto) 11 % (24-48) Monocytes (%) (Auto) 11 % (0-9) Eosinophils (%) (Auto) 2 % (0-3) Basophils (%) (Auto) 1 % (0-3) Neutrophils # (Auto) 9.2 x10^3/uL (1.8-7.7) Lymphocytes # (Auto) 1.3 x10^3/uL (1.0-4.8) Monocytes # (Auto) 1.3 x10^3/uL (0.0-1.1) Eosinophils # (Auto) 0.2 x10^3/uL (0.0-0.7) Basophils # (Auto) 0.1 x10^3/uL (0.0-0.2) Platelet Estimate Adequate (ADEQUATE) Polychromasia Slight Anisocytosis Mod Macrocytosis Slight Target Cells Few Sodium Level 140 mmol/L (136-145) Potassium Level 3.6 mmol/L (3.5-5.1) Chloride Level 102 mmol/L (98-107) Carbon Dioxide Level 29 mmol/L (21-32) Anion Gap 9 (6-14) Blood Urea Nitrogen 29 mg/dL (7-20) Creatinine 8.2 mg/dL (0.6-1.0) Estimated GFR (Cockcroft-Gault) 6.0 BUN/Creatinine Ratio 4 (6-20) Glucose Level 43 mg/dL (70-99) Lactic Acid Level 2.3 mmol/L (0.4-2.0) Calcium Level 9.4 mg/dL (8.5-10.1) Magnesium Level 1.9 mg/dL (1.8-2.4) Total Bilirubin 1.8 mg/dL (0.2-1.0) Aspartate Amino Transf (AST/SGOT) 39 U/L (15-37) Alanine Aminotransferase (ALT/SGPT) 71 U/L (14-59) Alkaline Phosphatase 163 U/L (46-116) Creatine Kinase 37 U/L (26-192) Creatine Kinase MB (Mass) < 0.5 ng/mL (0.0-3.6) Creatine Kinase MB Relative Index % (0-4) Troponin I Quantitative 0.098 ng/mL (0.000-0.055) Total Protein 7.1 g/dL (6.4-8.2) Albumin 2.3 g/dL (3.4-5.0) Albumin/Globulin Ratio 0.5 (1.0-1.7) Test 09/18/19 04:22 09/18/19 06:00 09/18/19 06:58 09/18/19 07:26 Glucose (Fingerstick) 83 mg/dL (70-99) 59 mg/dL (70-99) 32 mg/dL (70-99) 74 mg/dL (70-99) Lactic Acid Level 2.0 mmol/L (0.4-2.0) Troponin I Quantitative 0.092 ng/mL (0.000-0.055) Test 09/18/19 09:00 09/18/19 10:25 09/18/19 10:33 09/18/19 10:56 Prothrombin Time 22.6 SEC (11.7-14.0) Prothromb Time International Ratio 2.0 (0.8-1.1) Troponin I Quantitative 0.095 ng/mL (0.000-0.055) Glucose (Fingerstick) 20 mg/dL (70-99) 166 mg/dL (70-99) 95 mg/dL (70-99) Test 09/18/19 11:45 09/18/19 13:27 09/18/19 14:24 09/18/19 15:08 Glucose (Fingerstick) 44 mg/dL (70-99) 45 mg/dL (70-99) 100 mg/dL (70-99) 87 mg/dL (70-99) Test 09/18/19 15:40 09/18/19 16:27 09/18/19 17:36 09/18/19 18:15 Glucose (Fingerstick) 73 mg/dL (70-99) 43 mg/dL (70-99) 51 mg/dL (70-99) 112 mg/dL (70-99) Test 09/18/19 19:26 09/18/19 19:45 09/18/19 20:36 09/18/19 20:57 Glucose (Fingerstick) 50 mg/dL (70-99) 101 mg/dL (70-99) 29 mg/dL (70-99) 99 mg/dL (70-99) Test 09/18/19 21:30 09/18/19 21:44 09/18/19 22:26 09/18/19 22:37 Glucose (Fingerstick) 40 mg/dL (70-99) 123 mg/dL (70-99) 45 mg/dL (70-99) 144 mg/dL (70-99) Test 09/19/19 00:07 09/19/19 00:48 09/19/19 01:00 09/19/19 01:31 Glucose (Fingerstick) 118 mg/dL (70-99) 37 mg/dL (70-99) 118 mg/dL (70-99) 47 mg/dL (70-99) Test 09/19/19 01:47 09/19/19 02:28 09/19/19 02:40 09/19/19 03:08 Glucose (Fingerstick) 118 mg/dL (70-99) 37 mg/dL (70-99) 121 mg/dL (70-99) 67 mg/dL (70-99) Test 09/19/19 03:20 09/19/19 03:52 09/19/19 04:04 09/19/19 04:33 Glucose (Fingerstick) 94 mg/dL (70-99) 54 mg/dL (70-99) 87 mg/dL (70-99) 65 mg/dL (70-99) Test 09/19/19 04:42 09/19/19 05:14 09/19/19 05:36 09/19/19 06:06 Glucose (Fingerstick) 87 mg/dL (70-99) 65 mg/dL (70-99) 78 mg/dL (70-99) 41 mg/dL (70-99) Test 09/19/19 06:18 09/19/19 06:50 09/19/19 07:29 09/19/19 08:04 Glucose (Fingerstick) 87 mg/dL (70-99) 44 mg/dL (70-99) 76 mg/dL (70-99) 47 mg/dL (70-99) Test 09/19/19 08:36 09/19/19 09:04 09/19/19 09:42 09/19/19 10:15 Glucose (Fingerstick) 80 mg/dL (70-99) 51 mg/dL (70-99) 90 mg/dL (70-99) 60 mg/dL (70-99) Test 09/19/19 11:05 09/19/19 11:42 09/19/19 12:15 Glucose (Fingerstick) 101 mg/dL (70-99) 76 mg/dL (70-99) 64 mg/dL (70-99) Laboratory Tests Test 09/18/19 13:27 09/18/19 14:24 09/18/19 15:08 09/18/19 15:40 Glucose (Fingerstick) 45 mg/dL (70-99) 100 mg/dL (70-99) 87 mg/dL (70-99) 73 mg/dL (70-99) Test 09/18/19 16:27 09/18/19 17:36 09/18/19 18:15 09/18/19 19:26 Glucose (Fingerstick) 43 mg/dL (70-99) 51 mg/dL (70-99) 112 mg/dL (70-99) 50 mg/dL (70-99) Test 09/18/19 19:45 09/18/19 20:36 09/18/19 20:57 09/18/19 21:30 Glucose (Fingerstick) 101 mg/dL (70-99) 29 mg/dL (70-99) 99 mg/dL (70-99) 40 mg/dL (70-99) Test 09/18/19 21:44 09/18/19 22:26 09/18/19 22:37 09/19/19 00:07 Glucose (Fingerstick) 123 mg/dL (70-99) 45 mg/dL (70-99) 144 mg/dL (70-99) 118 mg/dL (70-99) Test 09/19/19 00:48 09/19/19 01:00 09/19/19 01:31 09/19/19 01:47 Glucose (Fingerstick) 37 mg/dL (70-99) 118 mg/dL (70-99) 47 mg/dL (70-99) 118 mg/dL (70-99) Test 09/19/19 02:28 09/19/19 02:40 09/19/19 03:08 09/19/19 03:20 Glucose (Fingerstick) 37 mg/dL (70-99) 121 mg/dL (70-99) 67 mg/dL (70-99) 94 mg/dL (70-99) Test 09/19/19 03:52 09/19/19 04:04 09/19/19 04:33 09/19/19 04:42 Glucose (Fingerstick) 54 mg/dL (70-99) 87 mg/dL (70-99) 65 mg/dL (70-99) 87 mg/dL (70-99) Test 09/19/19 05:14 09/19/19 05:36 09/19/19 06:06 09/19/19 06:18 Glucose (Fingerstick) 65 mg/dL (70-99) 78 mg/dL (70-99) 41 mg/dL (70-99) 87 mg/dL (70-99) Test 09/19/19 06:50 09/19/19 07:29 09/19/19 08:04 09/19/19 08:36 Glucose (Fingerstick) 44 mg/dL (70-99) 76 mg/dL (70-99) 47 mg/dL (70-99) 80 mg/dL (70-99) Test 09/19/19 09:04 09/19/19 09:42 09/19/19 10:15 09/19/19 11:05 Glucose (Fingerstick) 51 mg/dL (70-99) 90 mg/dL (70-99) 60 mg/dL (70-99) 101 mg/dL (70-99) Test 09/19/19 11:42 09/19/19 12:15 Glucose (Fingerstick) 76 mg/dL (70-99) 64 mg/dL (70-99) Assessment/Plan Assessment/Plan 1. DM2 with severe recurrent hypoglycemia: Treat per IM 2. Slightly elevated troponin level, most probably demand ischemia. Patient has history of coronary artery disease with known BISQUE BRUSHER LAD and underwent PCI/stent to D1 09/2018. CAD status clinically stable. She denied any chest pain. 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 Continue current secondary prevention measures. 3. Chronic systolic heart failure, LVEF 20%, clinically well compensated. Continue current medical regimen. 4. PAF s/p ablation therapy, maintaining sinus rhythm. She is being treated with amiodarone for rhythm maintenance and Eliquis for stroke prophylaxis. 5. s/p TAVR 06/2018, clinically stable. 6. Hypertension: Controlled 7. HLP: Continue statin therapy 8. ESRD: On hemodialysis per nephrology team. Thank you for your consultation. ROSIE HEREDIA MD Sep 19, 2019 12:48
--- NOTE | 2019-09-19 13:21 | PDOC ---
SUBJECTIVE ROS stable OBJECTIVE Vital Signs Vital Signs Date Time Temp Pulse Resp B/P (MAP) Pulse Ox O2 Delivery O2 Flow Rate FiO2 09/19/19 11:43 97 Nasal Cannula 2.0 09/19/19 10:58 98.4 88 20 98/45 (62) 98.4 I & 0 Intake and Output0 09/19/19 07:00 Intake Total 920 ml Output Total 100 ml Balance 820 ml Intake Oral 920 ml Output Emesis 100 ml # Voids 3 # Bowel Movements 3 PHYSICAL EXAM Physical Exam GENERAL:NAD HEENT: Oral cavity, pharynx clear. NECK: Supple. LUNGS: Clear to auscultation bilaterally. HEART: S1, S2. ABDOMEN: Obese, soft, nontender EXTREMITIES: No clubbing, cyanosis or gross edema. RUE-AV fistula. SKIN: no rash. NEUROLOGIC: Alert, oriented DIAGNOSIS/ASSESSMENT Assessment & Plan ESRD: On HD MWF under Dr. Miller's care Clinically euvolemic , stable Currently no indication for HD HypoGlycemia- was on Glipizide DM- per primary ANEMIA; Hgb stable Hx of Loculated right pleural effusion- s/p Thoracentesis 09/07 COMMENT/RELEVANT DATA Meds Current Medications Medications (Trade) Dose Ordered Sig/Chinmay Start Time Stop Time Status Last Admin Dose Admin Albuterol Sulfate (Ventolin Neb Soln) 2.5 mg PRN Q6HRS PRN 09/18/19 11:15 Amiodarone HCl (Cordarone) 200 mg DAILY 09/18/19 12:00 09/19/19 08:09 200 MG Apixaban (Eliquis) 5 mg BID 09/19/19 21:00 Aspirin (Jeanette Aspirin) 325 mg 1X ONCE 09/18/19 03:15 09/18/19 03:16 DC 09/18/19 03:47 325 MG Atorvastatin Calcium (Lipitor) 40 mg DAILY 09/18/19 12:00 09/19/19 08:09 40 MG Benzonatate (Tessalon Perle) 100 mg BID 09/19/19 04:00 09/19/19 08:08 100 MG Budesonide (Pulmicort) 0.5 mg RTBID 09/18/19 12:00 09/19/19 07:36 0.5 MG Clopidogrel Bisulfate (Plavix) 75 mg DAILY 7/25/20 12:00 09/19/19 08:09 75 MG Dextrose 1,000 ml @ 115 mls/hr Q8H42M 09/18/19 13:00 09/19/19 00:17 115 MLS/HR Dextrose (Dextrose 50%-Water Syringe) 12.5 gm PRN Q15MIN PRN 09/18/19 01:45 09/19/19 12:22 12.5 GM Dextrose 150 ml/ Dextrose 650 ml @ 50 mls/hr Q13H 09/19/19 08:00 09/19/19 07:42 30 MLS/HR Info (Anti-Coagulation Monitoring By Pharmacy) 1 each PRN DAILY PRN 09/19/19 12:45 Insulin Human Lispro (HumaLOG) 0-5 UNITS TIDWMEALS 09/18/19 08:00 09/18/19 23:06 DC Latanoprost (Xalatan) 1 drop QHS 09/18/19 21:00 09/18/19 20:42 1 DROP Lidocaine (Lidoderm) 1 patch DAILY 09/18/19 12:00 09/18/19 12:50 1 PATCH Metoprolol Succinate (Toprol Xl) 25 mg DAILY 09/18/19 12:00 09/19/19 08:09 25 MG Montelukast Sodium (Singulair) 10 mg HS 09/18/19 21:00 09/18/19 20:42 10 MG Non-Formulary Medication (Letrozole (Femara)) 1 tab DAILY 09/19/19 09:00 09/19/19 07:38 DC Ondansetron HCl (Zofran) 4 mg PRN Q8HRS PRN 09/19/19 04:00 09/19/19 08:47 4 MG Pharmacy Consult (C.diff Med Screen By Rx) 1 each 1X ONCE 09/18/19 09:00 09/18/19 09:01 DC Sevelamer Carbonate (Renvela) 800 mg TIDWMEALS 09/18/19 12:00 09/19/19 12:22 800 MG Vitamin B Complex/ Vitamin C (Jacquie-Debbi) 1 tab DAILY 09/18/19 12:00 09/19/19 08:09 1 TAB Warfarin Sodium (Coumadin Per Physician) 1 each PRN DAILY PRN 09/18/19 13:45 09/19/19 12:33 DC Warfarin Sodium (Coumadin) 2 mg DAILY16 09/18/19 16:00 09/19/19 12:33 DC 09/18/19 16:27 2 MG Lab Laboratory Tests Test 09/18/19 13:27 09/18/19 14:24 09/18/19 15:08 09/18/19 15:40 Glucose (Fingerstick) 45 mg/dL (70-99) 100 mg/dL (70-99) 87 mg/dL (70-99) 73 mg/dL (70-99) Test 09/18/19 16:27 09/18/19 17:36 09/18/19 18:15 09/18/19 19:26 Glucose (Fingerstick) 43 mg/dL (70-99) 51 mg/dL (70-99) 112 mg/dL (70-99) 50 mg/dL (70-99) Test 09/18/19 19:45 09/18/19 20:36 09/18/19 20:57 09/18/19 21:30 Glucose (Fingerstick) 101 mg/dL (70-99) 29 mg/dL (70-99) 99 mg/dL (70-99) 40 mg/dL (70-99) Test 09/18/19 21:44 09/18/19 22:26 09/18/19 22:37 09/19/19 00:07 Glucose (Fingerstick) 123 mg/dL (70-99) 45 mg/dL (70-99) 144 mg/dL (70-99) 118 mg/dL (70-99) Test 09/19/19 00:48 09/19/19 01:00 09/19/19 01:31 09/19/19 01:47 Glucose (Fingerstick) 37 mg/dL (70-99) 118 mg/dL (70-99) 47 mg/dL (70-99) 118 mg/dL (70-99) Test 09/19/19 02:28 09/19/19 02:40 09/19/19 03:08 09/19/19 03:20 Glucose (Fingerstick) 37 mg/dL (70-99) 121 mg/dL (70-99) 67 mg/dL (70-99) 94 mg/dL (70-99) Test 09/19/19 03:52 09/19/19 04:04 09/19/19 04:33 09/19/19 04:42 Glucose (Fingerstick) 54 mg/dL (70-99) 87 mg/dL (70-99) 65 mg/dL (70-99) 87 mg/dL (70-99) Test 09/19/19 05:14 09/19/19 05:36 09/19/19 06:06 09/19/19 06:18 Glucose (Fingerstick) 65 mg/dL (70-99) 78 mg/dL (70-99) 41 mg/dL (70-99) 87 mg/dL (70-99) Test 09/19/19 06:50 09/19/19 07:29 09/19/19 08:04 09/19/19 08:36 Glucose (Fingerstick) 44 mg/dL (70-99) 76 mg/dL (70-99) 47 mg/dL (70-99) 80 mg/dL (70-99) Test 09/19/19 09:04 09/19/19 09:42 09/19/19 10:15 09/19/19 11:05 Glucose (Fingerstick) 51 mg/dL (70-99) 90 mg/dL (70-99) 60 mg/dL (70-99) 101 mg/dL (70-99) Test 09/19/19 11:42 09/19/19 12:15 09/19/19 12:53 Glucose (Fingerstick) 76 mg/dL (70-99) 64 mg/dL (70-99) 93 mg/dL (70-99) Results All relevant outside records, renal labs, imaging studies, telemetry/EKG's were reviewed. Other CT abdomen -- 1. Exam limited by lack of IV contrast but no mass identified suspicious for an insulinoma. Consider correlation with contrast enhanced CT if clinically feasible, or abdominal MRI, with or without IV contrast. 2. Marked edema in the left breast. Correlate for any evidence of mastitis. 3. Loculated pleural effusion on the right and rounded atelectasis at the right lower lobe. Justicifation of Admission Dx: Justifications for Admission: Justification of Admission Dx: Yes Chronic Renal Failure: Renail Failure CODIE RIVERA MD Sep 19, 2019 13:21
[2019-09-19] MEDS: ANTI-COAG MONITOR BY PHARMACY. MC PRN (13:54)
[2019-09-19 15:00] VITALS: BP 98/55
[2019-09-19] MEDS: DEXTROSE IV SCH (18:03)
[2019-09-19 19:30] VITALS: BP 94/48
[2019-09-19] MEDS: MONTELUKAST SODIUM 10 MG TABLET. PO SCH (21:10)
[2019-09-19] MEDS: APIXABAN 5 MG TABLET. PO SCH (21:10)
[2019-09-19] MEDS: LATANOPROST 0.005% OPHTH SOLUTION 2.5ML BOTTLE. OU SCH (21:12)
[2019-09-19 22:35] VITALS: BP 83/37
[2019-09-20] MEDS ORDERED: PROCHLORPERAZINE 10 MG/2 ML VIAL. IV PRN
[2019-09-20 03:35] VITALS: BP 93/45
[2019-09-20] MEDS: ONDANSETRON PF 4 MG/2 ML VIAL. IVP PRN ×2 (06:23→16:42)
[2019-09-20 07:00] VITALS: BP 103/51
[2019-09-20] MEDS: BUDESONIDE 0.5 MG/2 ML NEBU. NEB SCH ×2 (07:43→20:07)
[2019-09-20] MEDS: ALBUTEROL SULFATE 2.5 MG/3 ML NEBU. NEB SCH ×4 (07:43→20:08)
[2019-09-20] MEDS: SEVELAMER CARBONATE 800 MG TABLET. PO SCH ×3 (08:00→17:00)
[2019-09-20] MEDS: DEXTROSE IV SCH (08:16)
[2019-09-20] MEDS ORDERED: IV NORMAL SALINE 1000ML BAG 1,000 ML IV PRN ×2 (08:31)
[2019-09-20 08:44] LABS: BASO # 0.1 x10^3/uL (0.0-0.2); BASO % 1 % (0-3); EOS # 0.2 x10^3/uL (0.0-0.7); EOS % 2 % (0-3); HEMATOCRIT 27.8 % (36.0-47.0); HEMOGLOBIN 8.9 g/dL (12.0-15.5); LYMPH # 1.3 x10^3/uL (1.0-4.8); LYMPH % 13 % (24-48); MEAN CORPUSCULAR HEMOGLOBIN 31 pg (25-35); MEAN CORPUSCULAR HGB CONC 32 g/dL (31-37); MEAN CORPUSCULAR VOLUME 98 fL (79-100); MONO % 10 % (0-9); NEUT # 7.2 x10^3/uL (1.8-7.7); NEUT % 73 % (31-73); PLATELET COUNT 147 x10^3/uL (140-400); RED BLOOD COUNT 2.83 x10^6/uL (3.50-5.40); RED CELL DISTRIBUTION WIDTH 23.2 % (11.5-14.5); WHITE BLOOD COUNT 9.8 x10^3/uL (4.0-11.0)
[2019-09-20] MEDS ORDERED: DIALYSIS PATIENT. MC PRN ×3 (08:45→11:00)
[2019-09-20 08:55] LABS: CALCIUM 8.9 mg/dL (8.5-10.1); CREATININE 10.2 mg/dL (0.6-1.0); GFR 4.6
[2019-09-20] MEDS: LIDOCAINE (700MG/PATCH) PATCH. TP SCH (09:00)
--- NOTE | 2019-09-20 12:27 | PDOC ---
Renal-Progress Notes Subjective Notes Notes COUGHING History of Present Illness Hx of present illness STABLE Vitals Vitals Vital Signs Date Time Temp Pulse Resp B/P (MAP) Pulse Ox O2 Delivery O2 Flow Rate FiO2 09/20/19 08:00 Nasal Cannula 2.0 09/20/19 07:45 100 09/20/19 07:00 97.8 89 22 103/51 (68) 97.8 Weight Weight [ ] I.O. Intake and Output Intake and Output 09/20/19 07:00 Intake Total 200 ml Balance 200 ml Intake Oral 200 ml # Bowel Movements 9 Labs Labs Laboratory Tests Test 09/19/19 12:53 09/19/19 13:54 09/19/19 14:33 09/19/19 15:01 Glucose (Fingerstick) 93 mg/dL (70-99) 61 mg/dL (70-99) 61 mg/dL (70-99) 58 mg/dL (70-99) Test 09/19/19 15:48 09/19/19 16:38 09/19/19 17:37 09/19/19 18:41 Glucose (Fingerstick) 72 mg/dL (70-99) 67 mg/dL (70-99) 57 mg/dL (70-99) 83 mg/dL (70-99) Test 09/19/19 19:35 09/19/19 20:37 09/19/19 21:43 09/19/19 22:43 Glucose (Fingerstick) 67 mg/dL (70-99) 135 mg/dL (70-99) 121 mg/dL (70-99) 112 mg/dL (70-99) Test 09/19/19 23:36 09/20/19 01:27 09/20/19 03:42 09/20/19 06:45 Glucose (Fingerstick) 115 mg/dL (70-99) 121 mg/dL (70-99) 133 mg/dL (70-99) 162 mg/dL (70-99) Test 09/20/19 08:15 09/20/19 08:25 09/20/19 10:14 White Blood Count 9.8 x10^3/uL (4.0-11.0) Red Blood Count 2.83 x10^6/uL (3.50-5.40) Hemoglobin 8.9 g/dL (12.0-15.5) Hematocrit 27.8 % (36.0-47.0) Mean Corpuscular Volume 98 fL (79-100) Mean Corpuscular Hemoglobin 31 pg (25-35) Mean Corpuscular Hemoglobin Concent 32 g/dL (31-37) Red Cell Distribution Width 23.2 % (11.5-14.5) Platelet Count 147 x10^3/uL (140-400) Neutrophils (%) (Auto) 73 % (31-73) Lymphocytes (%) (Auto) 13 % (24-48) Monocytes (%) (Auto) 10 % (0-9) Eosinophils (%) (Auto) 2 % (0-3) Basophils (%) (Auto) 1 % (0-3) Neutrophils # (Auto) 7.2 x10^3/uL (1.8-7.7) Lymphocytes # (Auto) 1.3 x10^3/uL (1.0-4.8) Monocytes # (Auto) 1.0 x10^3/uL (0.0-1.1) Eosinophils # (Auto) 0.2 x10^3/uL (0.0-0.7) Basophils # (Auto) 0.1 x10^3/uL (0.0-0.2) Sodium Level 129 mmol/L (136-145) Potassium Level 4.0 mmol/L (3.5-5.1) Chloride Level 92 mmol/L (98-107) Carbon Dioxide Level 24 mmol/L (21-32) Anion Gap 13 (6-14) Blood Urea Nitrogen 50 mg/dL (7-20) Creatinine 10.2 mg/dL (0.6-1.0) Estimated GFR (Cockcroft-Gault) 4.6 Glucose Level 165 mg/dL (70-99) Calcium Level 8.9 mg/dL (8.5-10.1) Glucose (Fingerstick) 149 mg/dL (70-99) 92 mg/dL (70-99) Review of Systems Constitutional: yes: weakness, alert, oriented Ears/Nose/Throat: Yes: no symptom reported Eyes: Yes: no symptom reported Pulmonary: Yes cough dry Cardiovascular: Yes no symptom reported Gastrointestional: Yes: constipation Genitourinary: Yes: no symptom reported Musculoskeletal: Yes: muscle stiffness Psychiatric/Neurological: Yes: no symptom reported Physical Exam General Appearance: no apparent distress Skin: warm Respiratory: decreased breath sounds Heart: S1S2 Abdomen: soft, bowel sounds present Genitourinary: bladder flat Extremities: pulses present Neurology: alert, oriented Musculoskeletal: Osteoarthritis, Other Assessment Assessment IMP ESRD HYPOTENSION ANEMIA LOW BG DM II R PLEURAL EFFUSIOIN PLAN START ARANESP HD TODAY UF TOLERATED ELVIS NÚÑEZ MD Sep 20, 2019 12:27
--- NOTE | 2019-09-20 12:41 | PDOC ---
JEANNA CANNON [employer] PERSON 09/20/19 1241: CARDIO Progress Notes Date and Time Date of Service 09/20/19 Time of Evaluation 1240 Subjective Subjective: No Chest Pain, No shortness of breath Vitals Vitals Vital Signs Date Time Temp Pulse Resp B/P (MAP) Pulse Ox O2 Delivery O2 Flow Rate FiO2 09/20/19 08:00 Nasal Cannula 2.0 09/20/19 07:45 100 09/20/19 07:00 97.8 89 22 103/51 (68) 97.8 Weight Weight [ ] Input and Output Intake and Output Intake and Output 09/20/19 07:00 Intake Total 200 ml Balance 200 ml Intake Oral 200 ml # Bowel Movements 9 Laboratory Labs Laboratory Tests Test 09/19/19 12:53 09/19/19 13:54 09/19/19 14:33 09/19/19 15:01 Glucose (Fingerstick) 93 mg/dL (70-99) 61 mg/dL (70-99) 61 mg/dL (70-99) 58 mg/dL (70-99) Test 09/19/19 15:48 09/19/19 16:38 09/19/19 17:37 09/19/19 18:41 Glucose (Fingerstick) 72 mg/dL (70-99) 67 mg/dL (70-99) 57 mg/dL (70-99) 83 mg/dL (70-99) Test 09/19/19 19:35 09/19/19 20:37 09/19/19 21:43 09/19/19 22:43 Glucose (Fingerstick) 67 mg/dL (70-99) 135 mg/dL (70-99) 121 mg/dL (70-99) 112 mg/dL (70-99) Test 09/19/19 23:36 09/20/19 01:27 09/20/19 03:42 09/20/19 06:45 Glucose (Fingerstick) 115 mg/dL (70-99) 121 mg/dL (70-99) 133 mg/dL (70-99) 162 mg/dL (70-99) Test 09/20/19 08:15 09/20/19 08:25 09/20/19 10:14 White Blood Count 9.8 x10^3/uL (4.0-11.0) Red Blood Count 2.83 x10^6/uL (3.50-5.40) Hemoglobin 8.9 g/dL (12.0-15.5) Hematocrit 27.8 % (36.0-47.0) Mean Corpuscular Volume 98 fL (79-100) Mean Corpuscular Hemoglobin 31 pg (25-35) Mean Corpuscular Hemoglobin Concent 32 g/dL (31-37) Red Cell Distribution Width 23.2 % (11.5-14.5) Platelet Count 147 x10^3/uL (140-400) Neutrophils (%) (Auto) 73 % (31-73) Lymphocytes (%) (Auto) 13 % (24-48) Monocytes (%) (Auto) 10 % (0-9) Eosinophils (%) (Auto) 2 % (0-3) Basophils (%) (Auto) 1 % (0-3) Neutrophils # (Auto) 7.2 x10^3/uL (1.8-7.7) Lymphocytes # (Auto) 1.3 x10^3/uL (1.0-4.8) Monocytes # (Auto) 1.0 x10^3/uL (0.0-1.1) Eosinophils # (Auto) 0.2 x10^3/uL (0.0-0.7) Basophils # (Auto) 0.1 x10^3/uL (0.0-0.2) Sodium Level 129 mmol/L (136-145) Potassium Level 4.0 mmol/L (3.5-5.1) Chloride Level 92 mmol/L (98-107) Carbon Dioxide Level 24 mmol/L (21-32) Anion Gap 13 (6-14) Blood Urea Nitrogen 50 mg/dL (7-20) Creatinine 10.2 mg/dL (0.6-1.0) Estimated GFR (Cockcroft-Gault) 4.6 Glucose Level 165 mg/dL (70-99) Calcium Level 8.9 mg/dL (8.5-10.1) Glucose (Fingerstick) 149 mg/dL (70-99) 92 mg/dL (70-99) Review of Systems Constitutional: yes: weakness, alert, oriented Ears/Nose/Throat: Yes: no symptom reported Eyes: Yes: no symptom reported Pulmonary: Yes cough dry Cardiovascular: Yes no symptom reported Gastrointestional: Yes: constipation Genitourinary: Yes: no symptom reported Musculoskeletal: Yes: muscle stiffness Psychiatric/Neurological: Yes: no symptom reported Physical Exam HEENT: Neck Supple W Full Motion Chest: Symmetric LUNGS: Clear to Auscultation Heart: RRR, murmurs Abdomen: Soft N/T Extremities: No Edema Neurology: alert, oriented Assessment Assessment 1. DM2 with severe recurrent hypoglycemia: Treat per IM 2. Slight troponin elevation; highest 0.098. Most probably demand ischemia. CP free. 3. CAD s/p PCI/stent to D1 and LAD 02/2019. CAD status clinically stable. 4. Chronic systolic heart failure with ICM, LVEF 20%, clinically well compensated. 5. PAF; recent flutter ablation at [facility]. maintaining SR 6. s/p TAVR 06/2018, clinically stable. 7. Hypertension: Controlled 8. HLP: Continue statin therapy 9. ESRD on HD 10. Loculated pleural effusion, ? PNA. s/p recent thoracentesis Recommendations Continue secondary prevention measures Consider outpatient ischemic evaliaton; will defer to primary roll capper. Amiodarone for rhythm maintenance Eliquis for stroke prophylaxis. Fluid management via HD Supportive care Justicifation of Admission Dx: Justifications for Admission: Justification of Admission Dx: Yes Chronic Renal Failure: Renail Failure ROSIE HEREDIA MD 09/20/19 0619: CARDIO Progress Notes Assessment Assessment Patient seen and examined. Agree with MARINE SUPERINTENDENT's assessment and plan, Slight trop elevation prob demand ischemia, CAD clinically stable Cr syst HF compensated PAF s/p ablation in SR, cont eliquis for stroke prophylaxis s/p TAVR, stable clinically Continue HD per nephrology team Consider outpatient ischemic evaluation JEANNA CANNON APRN Sep 20, 2019 12:41 ROSIE HEREDIA MD Sep 20, 2019 18:55
[2019-09-20 12:44] VITALS: BP 121/63
[2019-09-20] MEDS: BENZONATATE 100 MG CAPSULE. PO SCH ×2 (13:05→22:09)
[2019-09-20] MEDS: APIXABAN 5 MG TABLET. PO SCH ×2 (13:06→22:09)
[2019-09-20] MEDS: FOLIC/VIT B COMP W-C (RENAL) TABLET. PO SCH (13:06)
[2019-09-20] MEDS: ATORVASTATIN CALCIUM 40 MG TABLET. PO SCH (13:06)
[2019-09-20] MEDS: CLOPIDOGREL BISULFATE 75 MG TABLET PO SCH (13:06)
[2019-09-20] MEDS: METOPROLOL SUCC 24HR ER 25 MG TAB.ER.24H. PO SCH (13:07)
--- NOTE | 2019-09-20 13:32 | NUR ---
SS following for discharge planning. SS reviewed pt chart and discussed with pt RN. Pt is from home and is currently requiring oxygen. Pt recently discharged from [facility] with [facility], ; fax [phone]. Pt reports that she has home oxygen. Pt has outpatient dialysis at [facility], ; fax [phone], Friday, Friday, and Friday. [facility] [place] reported that COVID19 test is not required for return. SS will continue to follow for discharge planning.
[2019-09-20 14:29] VITALS: BP 98/53
--- NOTE | 2019-09-20 14:59 | PDOC ---
[employer] PROGRESS NOTE Chief Complaint Chief Complaint Assessment/Plan Assessment/Plan IMPRESSION: SEVERE RECURRENT HYPOGLYCEMIA SECONDARY TO GLYPIZIDE Improving lung aeration with cardiomegaly and findings of pulmonary vascular congestion and smaller right pleural effusion. RECENT Supratherapeutic INR improved RECENT D/C at 2.0 Loculated right pleural effusion s/p thoracentesis ESRD Normocytic anemia Enlarged left thyroid Hypoglycemia, recurrent DM2 - with hypoglycemia - stop sulfonylureas and insulin DVT/PE in August 2019 ON [facility] minimal troponin i elevation likely type ii demand ischemia morbid obesity echo in 2019 //PA pressure was estimated at 39 mmHg. c/w pulm hypertension Loculated pleural effusion on the right and rounded atelectasis at the right lower lobe. 09/18 Severe malnutrition plan NO insulin and STOP glypizide iv d25% at 50cc /hr insulin level Appreciate nephrology recommendations, start EPO today consult cardiology glucose checks q 2 hrs x 3 , then q 4 hrs and ac, hs serum insulin level Eliquis for DVT prophylaxis ADA diet Full code Discussed with RN and SW Dispo Justicifation of Admission Dx: Justicifation of Admission Dx: Justifications for Admission: Justification of Admission Dx: Yes Chronic Renal Failure: Renail Failure History of Present Illness History of Present Illness Identification/Chief Complaint Chief Complaint SEEN IN ER WITH SEVERE HYPOGLYCEMIA, 64 female presents via EMS with report of hypoglycemia. Patient has been seen by EMS 3 times 09/16 B for similar. Patient reports she has been taking her insulin without being able to check her glucometer. Reports a new glucometer has been NOT functioning well for the past few days. Patient denies any nausea or vomiting. Denies dysuria. Denies trauma. recent Hospital Course: 64 yo F w/ PMHx ESRD on HD, DVT with PE, DM2, HTN, HLD, anemia, carotid stenosis, atrial fibrillation who presents to ED after she went to hemodialysis and suddenly felt cold and felt like her sugar and blood pressure had dropped. She denied any fevers or chills or sweats, but felt weak. She was brought to [facility] and found to have a white count of 12.2 and at dialysis her glucose was 22 given D50. She was afebrile, but her blood pressure was in 80s/50s and glucose was 161. She underwent a chest x-ray, which showed a loculated small to moderate right pleural effusion, right mid basilar consolidations, atelectasis or pneumonia, 09/20/2019 Patient seen and examined during dialysis. No hypoglycemic events overnight. Patient is tolerating diet. Vitals/I&O Vitals/I&O: Vital Signs Date Time Temp Pulse Resp B/P (MAP) Pulse Ox O2 Delivery O2 Flow Rate FiO2 09/20/19 14:29 97.8 94 22 98/53 (68) 98 Nasal Cannula 2.0 97.8 I & O 09/19/19 09/19/19 09/20/19 15:00 23:00 07:00 Intake Total 100 ml 100 ml Balance 100 ml 100 ml Physical Exam Physical Exam: General: Alert, Oriented X3, Cooperative, No acute distress Heart: Regular rate, Normal S1 Lungs: Clear, Other Abdomen: Normal bowel sounds Extremities: No clubbing, No cyanosis left upper extremity graft appears to be patent. No erythema or edema or signs of infection. General: Alert, No acute distress Heart: Regular rate Lungs: Clear, Other Abdomen: Soft Extremities: No edema Labs Labs: Laboratory Tests Test 09/19/19 15:01 09/19/19 15:48 09/19/19 16:38 09/19/19 17:37 Glucose (Fingerstick) 58 mg/dL (70-99) 72 mg/dL (70-99) 67 mg/dL (70-99) 57 mg/dL (70-99) Test 09/19/19 18:41 09/19/19 19:35 09/19/19 20:37 09/19/19 21:43 Glucose (Fingerstick) 83 mg/dL (70-99) 67 mg/dL (70-99) 135 mg/dL (70-99) 121 mg/dL (70-99) Test 09/19/19 22:43 09/19/19 23:36 09/20/19 01:27 09/20/19 03:42 Glucose (Fingerstick) 112 mg/dL (70-99) 115 mg/dL (70-99) 121 mg/dL (70-99) 133 mg/dL (70-99) Test 09/20/19 06:45 09/20/19 08:15 09/20/19 08:25 09/20/19 10:14 Glucose (Fingerstick) 162 mg/dL (70-99) 149 mg/dL (70-99) 92 mg/dL (70-99) White Blood Count 9.8 x10^3/uL (4.0-11.0) Red Blood Count 2.83 x10^6/uL (3.50-5.40) Hemoglobin 8.9 g/dL (12.0-15.5) Hematocrit 27.8 % (36.0-47.0) Mean Corpuscular Volume 98 fL (79-100) Mean Corpuscular Hemoglobin 31 pg (25-35) Mean Corpuscular Hemoglobin Concent 32 g/dL (31-37) Red Cell Distribution Width 23.2 % (11.5-14.5) Platelet Count 147 x10^3/uL (140-400) Neutrophils (%) (Auto) 73 % (31-73) Lymphocytes (%) (Auto) 13 % (24-48) Monocytes (%) (Auto) 10 % (0-9) Eosinophils (%) (Auto) 2 % (0-3) Basophils (%) (Auto) 1 % (0-3) Neutrophils # (Auto) 7.2 x10^3/uL (1.8-7.7) Lymphocytes # (Auto) 1.3 x10^3/uL (1.0-4.8) Monocytes # (Auto) 1.0 x10^3/uL (0.0-1.1) Eosinophils # (Auto) 0.2 x10^3/uL (0.0-0.7) Basophils # (Auto) 0.1 x10^3/uL (0.0-0.2) Sodium Level 129 mmol/L (136-145) Potassium Level 4.0 mmol/L (3.5-5.1) Chloride Level 92 mmol/L (98-107) Carbon Dioxide Level 24 mmol/L (21-32) Anion Gap 13 (6-14) Blood Urea Nitrogen 50 mg/dL (7-20) Creatinine 10.2 mg/dL (0.6-1.0) Estimated GFR (Cockcroft-Gault) 4.6 Glucose Level 165 mg/dL (70-99) Calcium Level 8.9 mg/dL (8.5-10.1) Test 09/20/19 13:01 Glucose (Fingerstick) 162 mg/dL (70-99) Review of Systems Review of Systems: CONSTITUIONAL: Denies weight loss, fever and chills. HEENT: Denies changes in vision and hearing. RESPIRATORY: Denies SOB and cough. CV: Denies palpitations and CP. GI: Denies abdominal pain, nausea, vomiting and diarrhea. : Denies dysuria and urinary frequency. MSK: Denies myalgia and joint pain. SKIN: Denies rash and pruritus. NEUROLOGICAL: Denies headache and syncope. PSYCHIATRIC: Denies recent changes in mood. Denies anxiety and depression. Assessment and Plan Assessmemt and Plan Problems Medical Problems: (1) Elevated troponin Status: Acute (2) Hypoglycemia Status: Acute (3) Lactic acidosis Status: Acute Comment Review of Relevant I have reviewed the following items caroline (where applicable) has been applied. Medications: Current Medications Medications (Trade) Dose Ordered Sig/Chinmay Route PRN Reason Start Time Stop Time Status Last Admin Dose Admin Apixaban (Eliquis) 5 mg BID PO 09/19/19 21:00 09/20/19 13:06 Dextrose 400 ml/ Dextrose 1,000 ml @ 70 mls/hr [id number] IV 09/19/19 18:00 09/20/19 08:16 Ondansetron HCl (Zofran) 4 mg PRN Q4HRS PRN IVP NAUSEA/VOMITING 09/20/19 00:00 09/20/19 06:23 Justicifation of Admission Dx: Justifications for Admission: Justification of Admission Dx: Yes Chronic Renal Failure: Renail Failure DIVYA LINDER MD Sep 20, 2019 14:59
--- NOTE | 2019-09-20 15:07 | NUR ---
Wound Care Wound Type/Assessment: Skin tears to R posterior calf, proximal wound bed pink and moist. Distal wound bed covered in dry slough. No other wounds noted on head to toe assessment. Treatment Recommendations/Plan: Medihoney, xeroform, and foam dressing every 3 days. Education provided: Encouraged to turn periodically to avoid skin breakdown. Pt laying on Left side with pillows for positioning. Follow up 09/27/2019
[2019-09-20] MEDS: AMINO AC 3%/ELECTROLYTE/GLYCER 1,000 ML IV SCH (16:43)
[2019-09-20] MEDS: AMIODARONE HCL 200 MG TABLET. PO SCH (16:56)
[2019-09-20 17:07] LABS: FECAL OB PT NEGATIVE (NEG)
--- NOTE | 2019-09-20 17:13 | PDOC2 ---
CONSULT Date of Consult Date of Consult DATE: 09/20/19 TIME: 17:10 Reason for Consult Reason for Consult: N/V/D/wt loss/rectal bleeding Past Medical History Cardiovascular: AFIB, CAD, CHF, HTN, Hyperlipidemia, Aortic stenosis Pulmonary: COPD, Other CENTRAL NERVOUS SYSTEM: Periperal neuropathy GI: No pertinent hx Heme/Onc: Anemia NOS, Other Musculoskeletal: Osteoarthritis, Other Renal/: Chronic renal failure Endocrine: Diabetes Past Surgical History Past Surgical History: Hernia Repair, Other Family History Family History: Cancer, Hypertension Social History No ALCOHOL: none Drugs: None Lives: with Family Current Problem List Problem List Problems Medical Problems: (1) Elevated troponin Status: Acute (2) Hypoglycemia Status: Acute (3) Lactic acidosis Status: Acute Current Medications Current Medications Current Medications Dextrose (Dextrose 50%-Water Syringe) 25 gm 1X ONCE IV Last administered on 09/18/19at 01:37; Start 09/18/19 at 01:30; Stop 09/18/19 at 01:41; Status DC Insulin Human Lispro (HumaLOG) 0-5 UNITS TIDWMEALS SQ ; Start 09/18/19 at 08:00; Stop 09/18/19 at 23:06; Status DC Dextrose (Dextrose 50%-Water Syringe) 12.5 gm PRN Q15MIN PRN IV SEE COMMENTS Last administered on 09/19/19at 19:56; Start 09/18/19 at 01:45 Ondansetron HCl (Zofran) 4 mg PRN Q8HRS PRN IV NAUSEA/VOMITING Last administered on 09/19/19at 00:03; Start 09/18/19 at 01:45; Stop 09/19/19 at 01:44; Status DC Aspirin (Jeanette Aspirin) 325 mg 1X ONCE PO Last administered on 09/18/19at 03:47; Start 09/18/19 at 03:15; Stop 09/18/19 at 03:16; Status DC Dextrose 500 ml @ 75 mls/hr 1X ONCE IV ; Start 09/18/19 at 03:45; Stop 09/18/19 at 03:52; Status DC Dextrose 1,000 ml @ 75 mls/hr 1X ONCE IV Last administered on 09/18/19at 03:55; Start 09/18/19 at 04:00; Stop 09/18/19 at 17:19; Status DC Pharmacy Consult (C.diff Med Screen By Rx) 1 each 1X ONCE MC ; Start 09/18/19 at 09:00; Stop 09/18/19 at 09:01; Status DC Amiodarone HCl (Cordarone) 200 mg DAILY PO Last administered on 09/20/19at 16:56; Start 09/18/19 at 12:00 Atorvastatin Calcium (Lipitor) 40 mg DAILY PO Last administered on 09/20/19at 13:06; Start 09/18/19 at 12:00 Clopidogrel Bisulfate (Plavix) 75 mg DAILY PO Last administered on 09/20/19at 13:06; Start 09/18/19 at 12:00 Vitamin B Complex/ Vitamin C (Jacquie-Debbi) 1 tab DAILY PO Last administered on 09/20/19at 13:06; Start 09/18/19 at 12:00 Latanoprost (Xalatan) 1 drop QHS OU Last administered on 09/19/19at 21:12; Start 09/18/19 at 21:00 Lidocaine (Lidoderm) 1 patch DAILY TP Last administered on 09/18/19at 12:50; Start 09/18/19 at 12:00 Metoprolol Succinate (Toprol Xl) 25 mg DAILY PO Last administered on 09/20/19at 13:07; Start 09/18/19 at 12:00 Montelukast Sodium (Singulair) 10 mg HS PO Last administered on 09/19/19at 21:10; Start 09/18/19 at 21:00 Sevelamer Carbonate (Renvela) 800 mg TIDWMEALS PO Last administered on 09/19/19at 12:22; Start 09/18/19 at 12:00 Warfarin Sodium (Coumadin) 2 mg DAILY16 PO Last administered on 09/18/19at 16:27; Start 09/18/19 at 16:00; Stop 09/19/19 at 12:33; Status DC Albuterol Sulfate (Ventolin Neb Soln) 2.5 mg RTQID NEB Last administered on 09/20/19at 15:23; Start 09/18/19 at 12:00 Non-Formulary Medication (Letrozole (Femara)) 1 tab DAILY PO ; Start 09/19/19 at 09:00; Stop 09/19/19 at 07:38; Status DC Albuterol Sulfate (Ventolin Neb Soln) 2.5 mg PRN Q6HRS PRN NEB SHORTNESS OF BREATH; Start 09/18/19 at 11:15 Budesonide (Pulmicort) 0.5 mg RTBID NEB Last administered on 09/20/19at 07:43; Start 09/18/19 at 12:00 Dextrose 1,000 ml @ 115 mls/hr Q8H42M IV Last administered on 09/19/19at 00:17; Start 09/18/19 at 13:00; Stop 09/19/19 at 16:48; Status DC Warfarin Sodium (Coumadin Per Physician) 1 each PRN DAILY PRN MC SEE COMMENTS; Start 09/18/19 at 13:45; Stop 09/19/19 at 12:33; Status DC Benzonatate (Tessalon Perle) 100 mg BID PO Last administered on 09/20/19at 13:05; Start 09/19/19 at 04:00 Ondansetron HCl (Zofran) 4 mg PRN Q8HRS PRN IVP NAUSEA/VOMITING Last administered on 09/19/19at 19:07; Start 09/19/19 at 04:00; Stop 09/19/19 at 23:51; Status DC Dextrose 150 ml/ Dextrose 650 ml @ 65 mls/hr Q10H IV Last administered on 09/19/19at 07:42; Start 09/19/19 at 08:00; Stop 09/19/19 at 17:24; Status DC Apixaban (Eliquis) 5 mg BID PO Last administered on 09/20/19at 13:06; Start 09/19/19 at 21:00 Info (Anti-Coagulation Monitoring By Pharmacy) 1 each PRN DAILY PRN MC SEE COMMENTS Last administered on 09/19/19at 13:54; Start 09/19/19 at 12:45 Dextrose 340 ml/ Dextrose 1,140 ml @ 65 mls/hr [id number] IV ; Start 09/19/19 at 17:30; Stop 09/19/19 at 17:32; Status DC Dextrose 400 ml/ Dextrose 1,150 ml @ 65 mls/hr [id number] IV ; Start 09/19/19 at 18:00; Stop 09/19/19 at 17:38; Status DC Dextrose 400 ml/ Dextrose 1,000 ml @ 70 mls/hr [id number] IV Last administered on 09/20/19at 08:16; Start 09/19/19 at 18:00; Stop 09/20/19 at 16:28; Status DC Ondansetron HCl (Zofran) 4 mg PRN Q4HRS PRN IVP NAUSEA/VOMITING Last administered on 09/20/19at 16:42; Start 09/20/19 at 00:00 Prochlorperazine Edisylate (Compazine) 10 mg PRN Q6HRS PRN IV NAUSEA/VOMITING; Start 09/20/19 at 00:00 Sodium Chloride 1,000 ml @ 1,000 mls/hr Q1H PRN IV hypotension; Start 09/20/19 at 08:31; Stop 09/20/19 at 14:30; Status DC Sodium Chloride 1,000 ml @ 400 mls/hr Q2H30M PRN IV PATENCY; Start 09/20/19 at 08:31; Stop 09/20/19 at 20:30 Info (PHARMACY MONITORING -- do not chart) 1 each PRN DAILY PRN MC SEE COMMENTS; Start 09/20/19 at 08:45; Status Cancel Info (PHARMACY MONITORING -- do not chart) 1 each PRN DAILY PRN MC SEE COMMENTS; Start 09/20/19 at 08:45; Status UNV Info (PHARMACY MONITORING -- do not chart) 1 each PRN DAILY PRN MC SEE COMMENTS; Start 09/20/19 at 11:00 Darbepoetin Jeremy (ARANESP for DIALYSIS PTS) 60 mcg WEEKLYHS SQ ; Start 09/20/19 at 21:00 Amino Acids/ Glycerin/ Electrolytes 1,000 ml @ 80 mls/hr [id number] IV Last administered on 09/20/19at 16:43; Start 09/20/19 at 16:30 Active Scripts Active Doxycycline Hyclate 100 Mg Tablet 100 Mg PO BID 7 Days Amox Tr-K Clv 500-125 Mg Tab (Amoxicillin/Potassium Clav) 1 Each Tablet 1 Tab PO BID 7 Days Reported Femara (Letrozole) 2.5 Mg Tablet 1 Tab PO DAILY 30 Days Lidocaine PATCH (Lidocaine) 1 Each Adh..patch 1 Each TP DAILY REMOVE AFTER 12 HOURS Nesina (Alogliptin Benzoate) 12.5 Mg Tablet 1 Tab PO DAILY 30 Days Metoprolol Succinate ( Xl ) (Metoprolol Succinate) 25 Mg Tab.er.24h 25 Tab PO DAILY Montelukast Sodium Tablet (Montelukast Sodium) 10 Mg Tablet 10 Mg PO HS Warfarin Sodium 2 Mg Tablet 2 Mg PO DAILY Amiodarone Hcl 200 Mg Tablet 1 Tab PO DAILY Renvela (Sevelamer Carbonate) 800 Mg Tablet 800 Mg PO TIDWMEALS Clopidogrel (Clopidogrel Bisulfate) 75 Mg Tablet 75 Mg PO DAILY Latanoprost 2.5 Ml Drops 1 Drop EACHEYE QHS Symbicort 160-4.5 Mcg Inhaler (Budesonide/Formoterol Fumarate) 10.2 Gm Hfa.aer.ad 2 Puff IH BID Glipizide 5 Mg Tablet 2.5 Mg PO DAILY Jacquie-Debbi Tablet (Folic Acid/Vitamin B Comp W-C) 0.8 Mg Tablet 0.8 Mg PO DAILY Atorvastatin Calcium 40 Mg Tablet 1 Tab PO DAILY Allergies Allergies: Coded Allergies: Iodine and Iodide Containing Produc (Verified Allergy, Severe, swells up & itches, 02/13/18) shellfish derived (Verified Allergy, Intermediate, "SEAFOOD", 02/13/18) Vitals VITALS Vital Signs Date Time Temp Pulse Resp B/P (MAP) Pulse Ox O2 Delivery O2 Flow Rate FiO2 09/20/19 16:56 80 105/59 09/20/19 15:24 Nasal Cannula 2.0 09/20/19 14:29 97.8 22 98 97.8 Labs Labs Laboratory Tests Test 09/18/19 17:36 09/18/19 18:15 09/18/19 19:26 09/18/19 19:45 Glucose (Fingerstick) 51 mg/dL (70-99) 112 mg/dL (70-99) 50 mg/dL (70-99) 101 mg/dL (70-99) Test 09/18/19 20:36 09/18/19 20:57 09/18/19 21:30 09/18/19 21:44 Glucose (Fingerstick) 29 mg/dL (70-99) 99 mg/dL (70-99) 40 mg/dL (70-99) 123 mg/dL (70-99) Test 09/18/19 22:26 09/18/19 22:37 09/19/19 00:07 09/19/19 00:48 Glucose (Fingerstick) 45 mg/dL (70-99) 144 mg/dL (70-99) 118 mg/dL (70-99) 37 mg/dL (70-99) Test 09/19/19 01:00 09/19/19 01:31 09/19/19 01:47 09/19/19 02:28 Glucose (Fingerstick) 118 mg/dL (70-99) 47 mg/dL (70-99) 118 mg/dL (70-99) 37 mg/dL (70-99) Test 09/19/19 02:40 09/19/19 03:08 09/19/19 03:20 09/19/19 03:52 Glucose (Fingerstick) 121 mg/dL (70-99) 67 mg/dL (70-99) 94 mg/dL (70-99) 54 mg/dL (70-99) Test 09/19/19 04:04 09/19/19 04:33 09/19/19 04:42 09/19/19 05:14 Glucose (Fingerstick) 87 mg/dL (70-99) 65 mg/dL (70-99) 87 mg/dL (70-99) 65 mg/dL (70-99) Test 09/19/19 05:36 09/19/19 06:06 09/19/19 06:18 09/19/19 06:50 Glucose (Fingerstick) 78 mg/dL (70-99) 41 mg/dL (70-99) 87 mg/dL (70-99) 44 mg/dL (70-99) Test 09/19/19 07:29 09/19/19 08:04 09/19/19 08:36 09/19/19 09:04 Glucose (Fingerstick) 76 mg/dL (70-99) 47 mg/dL (70-99) 80 mg/dL (70-99) 51 mg/dL (70-99) Test 09/19/19 09:42 09/19/19 10:15 09/19/19 11:05 09/19/19 11:42 Glucose (Fingerstick) 90 mg/dL (70-99) 60 mg/dL (70-99) 101 mg/dL (70-99) 76 mg/dL (70-99) Test 09/19/19 12:15 09/19/19 12:53 09/19/19 13:54 09/19/19 14:33 Glucose (Fingerstick) 64 mg/dL (70-99) 93 mg/dL (70-99) 61 mg/dL (70-99) 61 mg/dL (70-99) Test 09/19/19 15:01 09/19/19 15:48 09/19/19 16:38 09/19/19 17:37 Glucose (Fingerstick) 58 mg/dL (70-99) 72 mg/dL (70-99) 67 mg/dL (70-99) 57 mg/dL (70-99) Test 09/19/19 18:41 09/19/19 19:35 09/19/19 20:37 09/19/19 21:43 Glucose (Fingerstick) 83 mg/dL (70-99) 67 mg/dL (70-99) 135 mg/dL (70-99) 121 mg/dL (70-99) Test 09/19/19 22:43 09/19/19 23:36 09/20/19 01:27 09/20/19 03:42 Glucose (Fingerstick) 112 mg/dL (70-99) 115 mg/dL (70-99) 121 mg/dL (70-99) 133 mg/dL (70-99) Test 09/20/19 06:45 09/20/19 08:15 09/20/19 08:25 09/20/19 10:14 Glucose (Fingerstick) 162 mg/dL (70-99) 149 mg/dL (70-99) 92 mg/dL (70-99) White Blood Count 9.8 x10^3/uL (4.0-11.0) Red Blood Count 2.83 x10^6/uL (3.50-5.40) Hemoglobin 8.9 g/dL (12.0-15.5) Hematocrit 27.8 % (36.0-47.0) Mean Corpuscular Volume 98 fL (79-100) Mean Corpuscular Hemoglobin 31 pg (25-35) Mean Corpuscular Hemoglobin Concent 32 g/dL (31-37) Red Cell Distribution Width 23.2 % (11.5-14.5) Platelet Count 147 x10^3/uL (140-400) Neutrophils (%) (Auto) 73 % (31-73) Lymphocytes (%) (Auto) 13 % (24-48) Monocytes (%) (Auto) 10 % (0-9) Eosinophils (%) (Auto) 2 % (0-3) Basophils (%) (Auto) 1 % (0-3) Neutrophils # (Auto) 7.2 x10^3/uL (1.8-7.7) Lymphocytes # (Auto) 1.3 x10^3/uL (1.0-4.8) Monocytes # (Auto) 1.0 x10^3/uL (0.0-1.1) Eosinophils # (Auto) 0.2 x10^3/uL (0.0-0.7) Basophils # (Auto) 0.1 x10^3/uL (0.0-0.2) Sodium Level 129 mmol/L (136-145) Potassium Level 4.0 mmol/L (3.5-5.1) Chloride Level 92 mmol/L (98-107) Carbon Dioxide Level 24 mmol/L (21-32) Anion Gap 13 (6-14) Blood Urea Nitrogen 50 mg/dL (7-20) Creatinine 10.2 mg/dL (0.6-1.0) Estimated GFR (Cockcroft-Gault) 4.6 Glucose Level 165 mg/dL (70-99) Calcium Level 8.9 mg/dL (8.5-10.1) Test 09/20/19 13:01 09/20/19 15:23 09/20/19 16:25 Glucose (Fingerstick) 162 mg/dL (70-99) 221 mg/dL (70-99) Stool Occult Blood Negative (NEG) Laboratory Tests Test 09/19/19 17:37 09/19/19 18:41 09/19/19 19:35 09/19/19 20:37 Glucose (Fingerstick) 57 mg/dL (70-99) 83 mg/dL (70-99) 67 mg/dL (70-99) 135 mg/dL (70-99) Test 09/19/19 21:43 09/19/19 22:43 09/19/19 23:36 09/20/19 01:27 Glucose (Fingerstick) 121 mg/dL (70-99) 112 mg/dL (70-99) 115 mg/dL (70-99) 121 mg/dL (70-99) Test 09/20/19 03:42 09/20/19 06:45 09/20/19 08:15 09/20/19 08:25 Glucose (Fingerstick) 133 mg/dL (70-99) 162 mg/dL (70-99) 149 mg/dL (70-99) White Blood Count 9.8 x10^3/uL (4.0-11.0) Red Blood Count 2.83 x10^6/uL (3.50-5.40) Hemoglobin 8.9 g/dL (12.0-15.5) Hematocrit 27.8 % (36.0-47.0) Mean Corpuscular Volume 98 fL (79-100) Mean Corpuscular Hemoglobin 31 pg (25-35) Mean Corpuscular Hemoglobin Concent 32 g/dL (31-37) Red Cell Distribution Width 23.2 % (11.5-14.5) Platelet Count 147 x10^3/uL (140-400) Neutrophils (%) (Auto) 73 % (31-73) Lymphocytes (%) (Auto) 13 % (24-48) Monocytes (%) (Auto) 10 % (0-9) Eosinophils (%) (Auto) 2 % (0-3) Basophils (%) (Auto) 1 % (0-3) Neutrophils # (Auto) 7.2 x10^3/uL (1.8-7.7) Lymphocytes # (Auto) 1.3 x10^3/uL (1.0-4.8) Monocytes # (Auto) 1.0 x10^3/uL (0.0-1.1) Eosinophils # (Auto) 0.2 x10^3/uL (0.0-0.7) Basophils # (Auto) 0.1 x10^3/uL (0.0-0.2) Sodium Level 129 mmol/L (136-145) Potassium Level 4.0 mmol/L (3.5-5.1) Chloride Level 92 mmol/L (98-107) Carbon Dioxide Level 24 mmol/L (21-32) Anion Gap 13 (6-14) Blood Urea Nitrogen 50 mg/dL (7-20) Creatinine 10.2 mg/dL (0.6-1.0) Estimated GFR (Cockcroft-Gault) 4.6 Glucose Level 165 mg/dL (70-99) Calcium Level 8.9 mg/dL (8.5-10.1) Test 09/20/19 10:14 09/20/19 13:01 09/20/19 15:23 09/20/19 16:25 Glucose (Fingerstick) 92 mg/dL (70-99) 162 mg/dL (70-99) 221 mg/dL (70-99) Stool Occult Blood Negative (NEG) Assessment/Plan Assessment/Plan N/V- with ESRD/DM/pneumonia with loculated pleural effusion on Ct scan. Mostr likely multifacorial in etiology. Gastroparesis, GB disease, malignanyc, and/or ileus with infection possible. Plan Hepatobiilary imaging prior to GES. Per staff anesthetist, EGD in last several months at [facility] to be reviewed Pulm consult for loculated effusion Stool for C diff Fukl note dictated AZALIA MAY MD Sep 20, 2019 17:13
[2019-09-20 18:53] VITALS: BP 90/40
--- NOTE | 2019-09-20 19:42 | CONS ---
DATE OF CONSULTATION: 09/20/2019 REASON FOR CONSULTATION: Nausea, vomiting, diarrhea, rectal bleeding. HISTORY OF PRESENT ILLNESS: A 64-year-old female with past medical history significant for end-stage renal disease, on hemodialysis, deep venous thrombosis, pulmonary emboli longstanding diabetes, hypertension, hyperlipidemia, chronic anemia, carotid stenosis, atrial fibrillation, is admitted to [facility] with mental status changes and hypoglycemia. She has subsequently noted to have over 80-pound weight loss in the past 6 months with nausea, vomiting, and diarrhea. She is unable to give additional history, but nursing staff states she may possibly had an EGD at within the past several months; records will be obtained. In addition, imaging has raised a question of a loculated pleural effusion with recent pneumonia and pulmonary consultation for this is pending as drainage of the chest tubes may be needed. The patient states that when she does eat food immediately comes back up and then she has been unable to maintain her caloric intake and her blood sugars. PAST MEDICAL HISTORY: Significant for heart disease congestive heart failure, coronary artery disease, chronic obstructive pulmonary disease, diabetes, hyperlipidemia, hypertension and end-stage renal disease, on dialysis x 5 years. ALLERGIES: IODINE. MEDICATIONS: Include Eliquis, montelukast, saline eyedrops, budesonide, albuterol, metoprolol, Plavix, atorvastatin and amiodarone. SOCIAL HISTORY: She is on dialysis. Does not drink or smoke at this time. FAMILY HISTORY: Noncontributory. REVIEW OF SYSTEMS: As per records. PHYSICAL EXAMINATION: GENERAL: Reveals a disabled -Cambodian female. VITAL SIGNS: Temperature is 97.8, pulse 94, respiratory rate 22, blood pressure is 105/59, she is on 2 liters of oxygen chronically. HEENT: Normocephalic, atraumatic head. Pupils and extraocular muscles are not tested. Sclerae anicteric. NECK: Supple. LUNGS: Reveal decreased breath sounds. CARDIOVASCULAR: S1, S2 without S3, S4 or appreciable murmur. ABDOMEN: Reveals a soft abdomen with epigastric right upper quadrant tenderness to deep palpation without appreciable hepatosplenomegaly. EXTREMITIES: Reveals the dialysis fistula in 1 arm. LABORATORY STUDIES: Hemoglobin is 8.9, hematocrit 27.8, white count 9.8, platelet count is 147,000. Sodium 129, potassium 4.0, chloride 98.2, bicarbonate 24, BUN 50, creatinine 10.2, glucose is 165, calcium is 8.5, total bilirubin is 1.8, alkaline phosphatase is 163, ALT of 71, ALT is 39. Imaging did reveal possible sludge in the gallbladder, loculated pleural effusion, possible mastitis left breast atrophic kidneys, mild rectal wall thickening, extensive atherosclerosis, loculated pleural effusion on the right. IMPRESSION: Nausea, vomiting, diarrhea, most likely is multifactorial, end-stage renal disease and diabetes, gastroparesis, malignancy, peptic ulcer disease, gallbladder disease and/or ileus with persistent pneumonia/ileus are in the differential; therefore, recommend hepatobiliary imaging, possibly gastric emptying study, pulmonary consultation for the loculated effusions, drainage may be needed with a chest tube and pleurodesis as well as review of her old records at , she apparently had an upper endoscopy in the past. AZALIA MAY MD DR: YAJAIRA/prabha JOB#: [id number] / [id number] CATE Silva MD
[2019-09-20] MEDS ORDERED: DARBEPOETIN ALFA 60 MCG/0.3 ML DISP.SYRIN. SQ SCH (21:00)
[2019-09-20] MEDS: LATANOPROST 0.005% OPHTH SOLUTION 2.5ML BOTTLE. OU SCH (22:09)
[2019-09-20] MEDS: MONTELUKAST SODIUM 10 MG TABLET. PO SCH (22:09)
[2019-09-20 23:00] VITALS: BP 90/41
[2019-09-21] VITALS (14 sets, daily range): BP systolic 71–98; BP diastolic 32–72
[2019-09-21] MEDS: AMINO AC 3%/ELECTROLYTE/GLYCER 1,000 ML IV SCH ×2 (05:20→18:35)
[2019-09-21] MEDS: BUDESONIDE 0.5 MG/2 ML NEBU. NEB SCH ×2 (07:45→20:11)
[2019-09-21] MEDS: ALBUTEROL SULFATE 2.5 MG/3 ML NEBU. NEB SCH ×4 (07:45→20:11)
[2019-09-21] MEDS: SEVELAMER CARBONATE 800 MG TABLET. PO SCH ×3 (08:00→17:00)
[2019-09-21] MEDS: LIDOCAINE (700MG/PATCH) PATCH. TP SCH (09:00)
[2019-09-21] MEDS: METOPROLOL SUCC 24HR ER 25 MG TAB.ER.24H. PO SCH (09:00)
[2019-09-21] MEDS: AMIODARONE HCL 200 MG TABLET. PO SCH (09:00)
--- NOTE | 2019-09-21 09:48 | EKG ---
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
--- NOTE | 2019-09-21 10:17 | CONS ---
DATE OF CONSULTATION: PULMONARY CONSULTATION ATTENDING PHYSICIAN: Luis A Dailey MD REASON FOR CONSULTATION: Loculated effusion. HISTORY OF PRESENT ILLNESS: The patient is a 64-year-old morbidly obese female with a BMI of 38.6. She was hospitalized at this time for severe hypoglycemia. The patient was here in mid August and had a loculated pleural effusion at that time, she required thoracentesis. Her analysis was consistent with an exudate with a low pH of 7.26. She had negative pleural cultures. She also has end-stage renal disease, on hemodialysis. She also has history of recurrent pulmonary embolism and DVT and has been on Eliquis. CT abdomen and pelvis was performed by her spanner operator, which was reviewed by me. She has a loculated effusion in the right lower lobe and also rounded atelectasis. There is a small pericardial effusion. Amount of loculation has improved since her last CAT scan from mid August. She states she does have a cough, but it is nonproductive. No chest pains. No fever or chills. No increased leg edema. She states she smoked for about less than 10 years and quit 40 years ago. PAST MEDICAL HISTORY: History of CAD, history of CHF, questionable COPD, history of type 2 diabetes, history of dyslipidemia, hypertension, history of end-stage renal disease, on hemodialysis. History of recurrent pulmonary embolism and DVT, on Eliquis. Morbid obesity and suspected XOCHILT. PAST SURGICAL HISTORY: TAVR, left arm graft. ALLERGIES: IODINE. MEDICATIONS: Reviewed as listed in the MRAD including Eliquis and also Plavix. REVIEW OF SYSTEMS: A 12-point system obtained. Pertinent positives discussed in my history of present illness, otherwise noncontributory. All systems that were negative were reviewed as well. SOCIAL HISTORY: Smoked less than 10 years. Quit 40 years ago. FAMILY HISTORY: Noncontributory to lungs. PHYSICAL EXAMINATION: VITAL SIGNS: Reviewed. Blood pressure 90/48, afebrile, pulse ox 91% on 2 liters. NECK: Supple. LUNGS: With diminished breath sounds. CARDIOVASCULAR: Regular rate. ABDOMEN: Obese. EXTREMITIES: With trace pitting edema. LABORATORY DATA: Reviewed. White cell count 9.8, hemoglobin 8.9, platelets are 147. INR 2.0. IMPRESSION: 1. The patient with chronic hypoxic respiratory failure, on home oxygen at 2 liters. She has a persistent loculated pleural effusion, overall better since her mid August CT chest. At that time, she required thoracentesis and analysis was consistent with an exudate with negative culture. She likely had complicated parapneumonic effusion. She would benefit from repeat thoracentesis with the chest tube and possibly TPA. She is currently on Eliquis and Plavix and needs to be on hold for 48 hours. 2. End-stage renal disease, on hemodialysis. 3. History of recurrent pulmonary embolism, initial one was 6 years ago, and then recently at [facility] last month. She will remain on lifelong anticoagulation. Her risk factors appears to be ongoing obesity. 4. Hypoglycemia. RECOMMENDATIONS: 1. Discussed with the patient and the Interventional Radiology, Dr. Naidu. At this time, I will hold Eliquis for 48 hours. I will ask Cardiology to make sure they are okay with holding Plavix. She has history of TAVR. 2. Thoracentesis with possible chest tube and possible TPA. 3. She also has a rounded atelectasis in the right lower chest, which will need a followup on future scans in 6 months. 4. Discussed with RN, and we will follow along with you. CARLI FLAL MD DR: MIKEY/prabha JOB#: [id number] / [id number]
[2019-09-21] MEDS: ANTI-COAG MONITOR BY PHARMACY. MC PRN (10:28)
[2019-09-21] MEDS: DEXTROSE 50% 25 GM / 50ML DISP.SYRIN. IV PRN (11:02)
--- NOTE | 2019-09-21 11:28 | NUR ---
SS following up with discharge planning. SS reviewed pt chart and discussed with pt RN. Pt is currently requiring oxygen. Pt has home oxygen. Pt on PPN. Per RN, pt not eating well. Discharge plan is to home with home healthcare when ready. Pt had [facility] and outpatient dialysis with Feli Johnson. SS will continue to follow for discharge planning.
--- NOTE | 2019-09-21 11:40 | PDOC ---
Renal-Progress Notes Subjective Notes Notes NO NEW COMPLAINTS History of Present Illness Hx of present illness NO CHANGES Vitals Vitals Vital Signs Date Time Temp Pulse Resp B/P (MAP) Pulse Ox O2 Delivery O2 Flow Rate FiO2 09/21/19 10:27 97.4 98 20 98/32 (54) 99 Nasal Cannula 2.0 97.4 Weight Weight [ ] I.O. Intake and Output Intake and Output 09/21/19 07:00 # Voids 3 # Bowel Movements 5 Labs Labs Laboratory Tests Test 09/20/19 13:01 09/20/19 15:23 09/20/19 16:25 09/20/19 17:41 Glucose (Fingerstick) 162 mg/dL (70-99) 221 mg/dL (70-99) 223 mg/dL (70-99) Stool Occult Blood Negative (NEG) Test 09/20/19 21:09 09/21/19 07:19 09/21/19 09:18 09/21/19 10:55 Glucose (Fingerstick) 118 mg/dL (70-99) 84 mg/dL (70-99) 82 mg/dL (70-99) 78 mg/dL (70-99) Review of Systems Constitutional: yes: weakness, alert, oriented Ears/Nose/Throat: Yes: no symptom reported Eyes: Yes: no symptom reported Pulmonary: Yes cough dry Cardiovascular: Yes no symptom reported Gastrointestional: Yes: constipation Genitourinary: Yes: no symptom reported Musculoskeletal: Yes: muscle stiffness Psychiatric/Neurological: Yes: no symptom reported Physical Exam General Appearance: no apparent distress Skin: warm Respiratory: decreased breath sounds Heart: S1S2 Abdomen: soft, bowel sounds present Genitourinary: bladder flat Extremities: pulses present Neurology: alert, oriented Musculoskeletal: Osteoarthritis, Other Assessment Assessment IMP ESRD HYPOTENSION ANEMIA LOW BG DM II R PLEURAL EFFUSIOIN PLAN PPN STARTED ARANESP HD TOMORROW THORACENTESIS ELVIS NÚÑEZ MD Sep 21, 2019 11:40
--- NOTE | 2019-09-21 13:01 | RAD ---
HEPATOBILIARY SCAN History: Reason: abd pain Comparison: CT abdomen and pelvis without contrast, prior day. Complete abdominal ultrasound, 09/21/2019. Procedure: Serial static images are obtained of the liver and biliary system in the frontal projection following IV administration of 5.5 mCi of Technetium 99m Choletec. Findings: There is prompt hepatic clearance of tracer from the blood pool. There is homogeneous distribution throughout the liver. There is normal filling of the gallbladder and normal emptying into the biliary system and small bowel. IMPRESSION: The cystic duct and common bile duct are patent. Negative for acute cholecystitis. Electronically signed by: Angel Bright MD (09/21/2019 12:58 PM) [id number]
--- NOTE | 2019-09-21 13:05 | PDOC ---
AMAN EDWARDS CARPENTER HELPER 09/21/19 1305: CARDIO Progress Notes Date and Time Date of Service 09/21/2019 Time of Evaluation 1305 Subjective Subjective: No Chest Pain, No shortness of breath Vitals Vitals Vital Signs Date Time Temp Pulse Resp B/P (MAP) Pulse Ox O2 Delivery O2 Flow Rate FiO2 09/21/19 10:27 97.4 98 20 98/32 (54) 99 Nasal Cannula 2.0 97.4 Weight Weight [ ] Input and Output Intake and Output Intake and Output 09/21/19 07:00 # Voids 3 # Bowel Movements 5 Laboratory Labs Laboratory Tests Test 09/20/19 15:23 09/20/19 16:25 09/20/19 17:41 09/20/19 21:09 Glucose (Fingerstick) 221 mg/dL (70-99) 223 mg/dL (70-99) 118 mg/dL (70-99) Stool Occult Blood Negative (NEG) Test 09/21/19 07:19 09/21/19 09:18 09/21/19 10:55 Glucose (Fingerstick) 84 mg/dL (70-99) 82 mg/dL (70-99) 78 mg/dL (70-99) Review of Systems Constitutional: yes: weakness, alert, oriented Ears/Nose/Throat: Yes: no symptom reported Eyes: Yes: no symptom reported Pulmonary: Yes cough dry Cardiovascular: Yes no symptom reported Gastrointestional: Yes: constipation Genitourinary: Yes: no symptom reported Musculoskeletal: Yes: muscle stiffness Psychiatric/Neurological: Yes: no symptom reported Physical Exam HEENT: Neck Supple W Full Motion Chest: Symmetric LUNGS: Clear to Auscultation Heart: RRR (SR), murmurs Abdomen: Soft N/T Extremities: Other (1-2+ bilateral LE pitting edema) Neurology: alert, oriented Assessment Assessment 1. DM2 with severe recurrent hypoglycemia: Treat per IM 2. Slight troponin elevation; highest 0.098. Most probably demand ischemia. CP free. 3. CAD s/p PCI/stent to D1 and LAD 02/2019. CAD status clinically stable. 4. Chronic systolic heart failure with ICM, LVEF 20%, clinically well compensated. 5. PAF; recent flutter ablation at [facility]. maintaining SR 6. s/p TAVR 06/2018, clinically stable 7. Hypertension: Controlled 8. HLP: Continue statin therapy 9. ESRD on HD 10. Loculated pleural effusion, thoracentesis pending for Recommendations 1. May hold Eliquis and plavix and resume after thoracentesis 2. Continue secondary prevention measures 3. Consider outpatient ischemic evaliaton; will defer to primary sanitation supervisor. 4. Amiodarone for rhythm maintenance 5. Eliquis for stroke prophylaxis. 6. Fluid management via HD 7. Supportive care Justicifation of Admission Dx: Justifications for Admission: Justification of Admission Dx: Yes Chronic Renal Failure: Renail Failure ROSIE HEREDIA MD 09/21/19 2328: CARDIO Progress Notes Assessment Assessment Patient seen and examined. Agree with ROLL TRUCKER's assessment and plan, Slight trop elevation prob demand ischemia, CAD clinically stable Ac on Chr syst HF bettervcompensated Thoracentesis being planned for PAF s/p ablation in SR, OK to hold eliquis for thoracentesis s/p TAVR, stable clinically Continue HD per nephrology team Consider outpatient ischemic evaluation AMAN EDWARDS APRN Sep 21, 2019 13:05 ROSIE HEREDIA MD Sep 21, 2019 21:48
--- NOTE | 2019-09-21 13:08 | RAD ---
Abdominal ultrasound compared to CT scan of the abdomen and pelvis dated September 182019 for abdominal pain. TECHNIQUE AND FINDINGS: Real-time grayscale and color Doppler evaluation of the abdominal organs is performed. The IVC is obscured. The aorta is nonaneurysmal. Visualized portions the pancreas are normal, though the mid body and tail are not well seen. There is a small simple cyst within the liver for which no additional follow-up is required. Liver measures 20 cm, but is otherwise normal. Portal vein is patent and hepatopedal. Gallbladder is partially fluid distended with no shadowing stones or sludge and no sonographic López sign elicited. Common bile duct measures 4 mm. The right kidney is atrophic and echogenic. Recorded measurements are 8.0 x 3.4 x 3.3 cm, though I believe the 8 cm measurement is spurious and this kidney likely is a longitudinal length of roughly 6 cm. The left kidney and renal fossa are completely obscured by overlying bowel gas. Spleen is normal in size and appearance. There is a small right pleural effusion. IMPRESSION: 1. Hepatomegaly, with no significant focal hepatic parenchymal abnormalities. 2. Atrophic and echogenic right kidney. Left kidney is obscured. 3. Small right pleural effusion. Electronically signed by: Alexis Rome MD (09/21/2019 1:05 PM) [id number]
--- NOTE | 2019-09-21 13:24 | PDOC ---
G I PROGRESS NOTE Reason for Follow-up N?V Subjective Still nauseated Physical Exam Lungs decreased BS CV S1 S2 ABD +BS, soft, distended Review of Relevant I have reviewed the following items caroline (where applicable) has been applied. Labs Laboratory Tests Test 09/19/19 13:54 09/19/19 14:33 09/19/19 15:01 09/19/19 15:48 Glucose (Fingerstick) 61 mg/dL (70-99) 61 mg/dL (70-99) 58 mg/dL (70-99) 72 mg/dL (70-99) Test 09/19/19 16:38 09/19/19 17:37 09/19/19 18:41 09/19/19 19:35 Glucose (Fingerstick) 67 mg/dL (70-99) 57 mg/dL (70-99) 83 mg/dL (70-99) 67 mg/dL (70-99) Test 09/19/19 20:37 09/19/19 21:43 09/19/19 22:43 09/19/19 23:36 Glucose (Fingerstick) 135 mg/dL (70-99) 121 mg/dL (70-99) 112 mg/dL (70-99) 115 mg/dL (70-99) Test 09/20/19 01:27 09/20/19 03:42 09/20/19 06:45 09/20/19 08:15 Glucose (Fingerstick) 121 mg/dL (70-99) 133 mg/dL (70-99) 162 mg/dL (70-99) White Blood Count 9.8 x10^3/uL (4.0-11.0) Red Blood Count 2.83 x10^6/uL (3.50-5.40) Hemoglobin 8.9 g/dL (12.0-15.5) Hematocrit 27.8 % (36.0-47.0) Mean Corpuscular Volume 98 fL (79-100) Mean Corpuscular Hemoglobin 31 pg (25-35) Mean Corpuscular Hemoglobin Concent 32 g/dL (31-37) Red Cell Distribution Width 23.2 % (11.5-14.5) Platelet Count 147 x10^3/uL (140-400) Neutrophils (%) (Auto) 73 % (31-73) Lymphocytes (%) (Auto) 13 % (24-48) Monocytes (%) (Auto) 10 % (0-9) Eosinophils (%) (Auto) 2 % (0-3) Basophils (%) (Auto) 1 % (0-3) Neutrophils # (Auto) 7.2 x10^3/uL (1.8-7.7) Lymphocytes # (Auto) 1.3 x10^3/uL (1.0-4.8) Monocytes # (Auto) 1.0 x10^3/uL (0.0-1.1) Eosinophils # (Auto) 0.2 x10^3/uL (0.0-0.7) Basophils # (Auto) 0.1 x10^3/uL (0.0-0.2) Sodium Level 129 mmol/L (136-145) Potassium Level 4.0 mmol/L (3.5-5.1) Chloride Level 92 mmol/L (98-107) Carbon Dioxide Level 24 mmol/L (21-32) Anion Gap 13 (6-14) Blood Urea Nitrogen 50 mg/dL (-20) Creatinine 10.2 mg/dL (0.6-1.0) Estimated GFR (Cockcroft-Gault) 4.6 Glucose Level 165 mg/dL (70-99) Calcium Level 8.9 mg/dL (8.5-10.1) Test 09/20/19 08:25 09/20/19 10:14 09/20/19 13:01 09/20/19 15:23 Glucose (Fingerstick) 149 mg/dL (70-99) 92 mg/dL (70-99) 162 mg/dL (70-99) 221 mg/dL (70-99) Test 09/20/19 16:25 09/20/19 17:41 09/20/19 21:09 09/21/19 07:19 Stool Occult Blood Negative (NEG) Glucose (Fingerstick) 223 mg/dL (70-99) 118 mg/dL (70-99) 84 mg/dL (70-99) Test 09/21/19 09:18 09/21/19 10:55 Glucose (Fingerstick) 82 mg/dL (70-99) 78 mg/dL (70-99) Laboratory Tests Test 7/27/20 15:23 09/20/19 16:25 09/20/19 17:41 09/20/19 21:09 Glucose (Fingerstick) 221 mg/dL (70-99) 223 mg/dL (70-99) 118 mg/dL (70-99) Stool Occult Blood Negative (NEG) Test 09/21/19 07:19 09/21/19 09:18 09/21/19 10:55 Glucose (Fingerstick) 84 mg/dL (70-99) 82 mg/dL (70-99) 78 mg/dL (70-99) Medications Current Medications Dextrose (Dextrose 50%-Water Syringe) 25 gm 1X ONCE IV Last administered on 09/18/19at 01:37; Start 09/18/19 at 01:30; Stop 09/18/19 at 01:41; Status DC Insulin Human Lispro (HumaLOG) 0-5 UNITS TIDWMEALS SQ ; Start 09/18/19 at 08:00; Stop 09/18/19 at 23:06; Status DC Dextrose (Dextrose 50%-Water Syringe) 12.5 gm PRN Q15MIN PRN IV SEE COMMENTS Last administered on 09/21/19at 11:02; Start 09/18/19 at 01:45 Ondansetron HCl (Zofran) 4 mg PRN Q8HRS PRN IV NAUSEA/VOMITING Last administered on 09/19/19at 00:03; Start 09/18/19 at 01:45; Stop 09/19/19 at 01:44; Status DC Aspirin (Jeanette Aspirin) 325 mg 1X ONCE PO Last administered on 09/18/19at 03:47; Start 09/18/19 at 03:15; Stop 09/18/19 at 03:16; Status DC Dextrose 500 ml @ 75 mls/hr 1X ONCE IV ; Start 09/18/19 at 03:45; Stop 09/18/19 at 03:52; Status DC Dextrose 1,000 ml @ 75 mls/hr 1X ONCE IV Last administered on 09/18/19at 03:55; Start 09/18/19 at 04:00; Stop 09/18/19 at 17:19; Status DC Pharmacy Consult (C.diff Med Screen By Rx) 1 each 1X ONCE MC ; Start 09/18/19 at 09:00; Stop 09/18/19 at 09:01; Status DC Amiodarone HCl (Cordarone) 200 mg DAILY PO Last administered on 09/20/19 16:56; Start 09/18/19 at 12:00 Atorvastatin Calcium (Lipitor) 40 mg DAILY PO Last administered on 09/20/19 13:06; Start 09/18/19 at 12:00 Clopidogrel Bisulfate (Plavix) 75 mg DAILY PO Last administered on 09/20/19 13:06; Start 09/18/19 at 12:00 Vitamin B Complex/ Vitamin C (Jacquie-Debbi) 1 tab DAILY PO Last administered on 09/20/19 13:06; Start 09/18/19 at 12:00 Latanoprost (Xalatan) 1 drop QHS OU Last administered on 09/20/19 22:09; Start 09/18/19 at 21:00 Lidocaine (Lidoderm) 1 patch DAILY TP Last administered on 09/18/19 12:50; Start 09/18/19 at 12:00 Metoprolol Succinate (Toprol Xl) 25 mg DAILY PO Last administered on 09/20/19 13:07; Start 09/18/19 at 12:00 Montelukast Sodium (Singulair) 10 mg HS PO Last administered on 09/20/19 22:09; Start 09/18/19 at 21:00 Sevelamer Carbonate (Renvela) 800 mg TIDWMEALS PO Last administered on 09/19/19 12:22; Start 09/18/19 at 12:00 Warfarin Sodium (Coumadin) 2 mg DAILY16 PO Last administered on 09/18/19 16:27; Start 09/18/19 at 16:00; Stop 09/19/19 at 12:33; Status DC Albuterol Sulfate (Ventolin Neb Soln) 2.5 mg RTQID NEB Last administered on 09/21/19at 07:45; Start 09/18/19 at 12:00 Non-Formulary Medication (Letrozole (Femara)) 1 tab DAILY PO ; Start 09/19/19 at 09:00; Stop 09/19/19 at 07:38; Status DC Albuterol Sulfate (Ventolin Neb Soln) 2.5 mg PRN Q6HRS PRN NEB SHORTNESS OF BREATH; Start 09/18/19 at 11:15 Budesonide (Pulmicort) 0.5 mg RTBID NEB Last administered on 09/21/19at 07:45; Start 09/18/19 at 12:00 Dextrose 1,000 ml @ 115 mls/hr Q8H42M IV Last administered on 09/19/19at 00:17; Start 09/18/19 at 13:00; Stop 09/19/19 at 16:48; Status DC Warfarin Sodium (Coumadin Per Physician) 1 each PRN DAILY PRN MC SEE COMMENTS; Start 09/18/19 at 13:45; Stop 09/19/19 at 12:33; Status DC Benzonatate (Tessalon Perle) 100 mg BID PO Last administered on 09/20/19at 22:09; Start 09/19/19 at 04:00 Ondansetron HCl (Zofran) 4 mg PRN Q8HRS PRN IVP NAUSEA/VOMITING Last administered on 09/19/19at 19:07; Start 09/19/19 at 04:00; Stop 09/19/19 at 23:51; Status DC Dextrose 150 ml/ Dextrose 650 ml @ 65 mls/hr Q10H IV Last administered on 09/19/19at 07:42; Start 09/19/19 at 08:00; Stop 09/19/19 at 17:24; Status DC Apixaban (Eliquis) 5 mg BID PO Last administered on 09/20/19at 22:09; Start 09/19/19 at 21:00 Info (Anti-Coagulation Monitoring By Pharmacy) 1 each PRN DAILY PRN MC SEE COMMENTS Last administered on 09/21/19at 10:28; Start 09/19/19 at 12:45 Dextrose 340 ml/ Dextrose 1,140 ml @ 65 mls/hr [id number] IV ; Start 09/19/19 at 17:30; Stop 09/19/19 at 17:32; Status DC Dextrose 400 ml/ Dextrose 1,150 ml @ 65 mls/hr [id number] IV ; Start 09/19/19 at 18:00; Stop 09/19/19 at 17:38; Status DC Dextrose 400 ml/ Dextrose 1,000 ml @ 70 mls/hr [id number] IV Last administered on 09/20/19at 08:16; Start 09/19/19 at 18:00; Stop 09/20/19 at 16:28; Status DC Ondansetron HCl (Zofran) 4 mg PRN Q4HRS PRN IVP NAUSEA/VOMITING 1ST CHOICE Last administered on 09/20/19at 16:42; Start 09/20/19 at 00:00 Prochlorperazine Edisylate (Compazine) 10 mg PRN Q6HRS PRN IV NAUSEA/VOMITING 2ND CHOICE; Start 09/20/19 at 00:00 Sodium Chloride 1,000 ml @ 1,000 mls/hr Q1H PRN IV hypotension; Start 09/20/19 at 08:31; Stop 09/20/19 at 14:30; Status DC Sodium Chloride 1,000 ml @ 400 mls/hr Q2H30M PRN IV PATENCY; Start 09/20/19 at 08:31; Stop 09/20/19 at 20:30; Status DC Info (PHARMACY MONITORING -- do not chart) 1 each PRN DAILY PRN MC SEE COMMENTS; Start 09/20/19 at 08:45; Status Cancel Info (PHARMACY MONITORING -- do not chart) 1 each PRN DAILY PRN MC SEE COMMENTS; Start 09/20/19 at 08:45; Status UNV Info (PHARMACY MONITORING -- do not chart) 1 each PRN DAILY PRN MC SEE COMMENTS; Start 09/20/19 at 11:00 Darbepoetin Jeremy (ARANESP for DIALYSIS PTS) 60 mcg WEEKLYHS SQ Last administered on 09/20/19at 22:10; Start 09/20/19 at 21:00 Amino Acids/ Glycerin/ Electrolytes 1,000 ml @ 80 mls/hr [id number] IV Last administered on 09/21/19at 05:20; Start 09/20/19 at 16:30 Active Scripts Active Doxycycline Hyclate 100 Mg Tablet 100 Mg PO BID 7 Days Amox Tr-K Clv 500-125 Mg Tab (Amoxicillin/Potassium Clav) 1 Each Tablet 1 Tab PO BID 7 Days Reported Femara (Letrozole) 2.5 Mg Tablet 1 Tab PO DAILY 30 Days Lidocaine PATCH (Lidocaine) 1 Each Adh..patch 1 Each TP DAILY REMOVE AFTER 12 HOURS Nesina (Alogliptin Benzoate) 12.5 Mg Tablet 1 Tab PO DAILY 30 Days Metoprolol Succinate ( Xl ) (Metoprolol Succinate) 25 Mg Tab.er.24h 25 Tab PO DAILY Montelukast Sodium Tablet (Montelukast Sodium) 10 Mg Tablet 10 Mg PO HS Warfarin Sodium 2 Mg Tablet 2 Mg PO DAILY Amiodarone Hcl 200 Mg Tablet 1 Tab PO DAILY Renvela (Sevelamer Carbonate) 800 Mg Tablet 800 Mg PO TIDWMEALS Clopidogrel (Clopidogrel Bisulfate) 75 Mg Tablet 75 Mg PO DAILY Latanoprost 2.5 Ml Drops 1 Drop EACHEYE QHS Symbicort 160-4.5 Mcg Inhaler (Budesonide/Formoterol Fumarate) 10.2 Gm Hfa. aer.ad 2 Puff IH BID Glipizide 5 Mg Tablet 2.5 Mg PO DAILY Jacquie-Debbi Tablet (Folic Acid/Vitamin B Comp W-C) 0.8 Mg Tablet 0.8 Mg PO DAILY Atorvastatin Calcium 40 Mg Tablet 1 Tab PO DAILY Vitals/I & O Vital Sign - Last 24 Hours 09/20/19 09/20/19 09/20/19 09/20/19 14:29 15:24 16:56 18:53 Temp 97.8 99.1 97.8 99.1 Pulse 94 80 103 Resp 22 20 B/P (MAP) 98/53 (68) 105/59 90/40 (57) Pulse Ox 98 98 O2 Delivery Nasal Cannula Nasal Cannula Nasal Cannula O2 Flow Rate 2.0 2.0 2.0 09/20/19 09/20/19 09/20/19 09/20/19 20:00 20:08 20:08 23:00 Temp 98.8 98.8 Pulse 59 Resp 20 B/P (MAP) 90/41 (57) Pulse Ox 94 O2 Delivery Nasal Cannula Nasal Cannula Nasal Cannula O2 Flow Rate 2.0 2.0 2.0 09/21/19 09/21/19 09/21/19 09/21/19 03:00 07:00 07:50 07:51 Temp 98.8 97.9 98.8 97.9 Pulse 93 90 Resp 20 20 B/P (MAP) 95/33 (53) 76/32 (47) Pulse Ox 98 91 O2 Delivery Nasal Cannula Nasal Cannula Nasal Cannula O2 Flow Rate 2.0 2.0 2.0 09/21/19 09/21/19 08:06 10:27 Temp 97.4 97.4 Pulse 98 Resp 20 B/P (MAP) 90/48 (62) 98/32 (54) Pulse Ox 99 O2 Delivery Nasal Cannula O2 Flow Rate 2.0 Problem List Problems Medical Problems: (1) Elevated troponin Status: Acute (2) Hypoglycemia Status: Acute (3) Lactic acidosis Status: Acute Assessment N/V- with ESRD and DM, gastroparesis leads differential, GES as o/p recommended Pulm- loculated effusion, chest tube with possible TPA to clear out loculation planned with pulmonary and IR, CPM Justicifation of Admission Dx: Justifications for Admission: Justification of Admission Dx: Yes Chronic Renal Failure: Renail Failure AZALIA MAY MD Sep 21, 2019 13:24
--- NOTE | 2019-09-21 13:29 | PDOC ---
[employer] PROGRESS NOTE Chief Complaint Chief Complaint SEVERE RECURRENT HYPOGLYCEMIA SECONDARY TO GLYPIZIDE Improving lung aeration with cardiomegaly and findings of pulmonary vascular congestion and smaller right pleural effusion. RECENT Supratherapeutic INR improved RECENT D/C at 2.0 Loculated right pleural effusion pending thoracentesis ESRD Normocytic anemia Enlarged left thyroid Hypoglycemia, recurrent DM2 - with hypoglycemia - stop sulfonylureas and insulin DVT/PE in August 2019 ON WARFARIN minimal troponin i elevation likely type ii demand ischemia morbid obesity echo in 2019 //PA pressure was estimated at 39 mmHg. c/w pulm hypertension Loculated pleural effusion on the right and rounded atelectasis at the right lower lobe. 09/18 Severe malnutrition plan Appreciate GI recommendations, MRCP and ultrasound was unremarkable except for hepatomegaly. NO insulin and STOP glypizide iv d25% at 50cc /hr insulin level Appreciate nephrology recommendations, start EPO today consult cardiology Appreciate pulmonary recommendations, possible thoracentesis once Eliquis has b een held for 2 days will defer to cardiology glucose checks q 2 hrs x 3 , then q 4 hrs and ac, hs serum insulin level Eliquis for DVT prophylaxis ADA diet Full code Discussed with RN and SW Dispo pending thoracentesis Justicifation of Admission Dx: Justicifation of Admission Dx: Justifications for Admission: Justification of Admission Dx: Yes Chronic Renal Failure: Renail Failure History of Present Illness History of Present Illness recent Hospital Course: 64 yo F w/ PMHx ESRD on HD, DVT with PE, DM2, HTN, HLD, anemia, carotid stenosis, atrial fibrillation who presents to ED after she went to hemodialysis and suddenly felt cold and felt like her sugar and blood pressure had dropped. She denied any fevers or chills or sweats, but felt weak. She was brought to [facility] and found to have a white count of 12.2 and at dialysis her glucose was 22 given D50. She was afebrile, but her blood pressure was in 80s/50s and glucose was 161. She underwent a chest x-ray, which showed a loculated small to moderate right pleural effusion, right mid basilar consolidations, atelectasis or pneumonia, 09/21/2019 Patient seen and examined this a.m. No acute events overnight. Patient has been tolerating her HD sessions. No complaints of chest pain or shortness of breath. 09/20/2019 Patient seen and examined during dialysis. No hypoglycemic events overnight. Patient is tolerating diet. Vitals/I&O Vitals/I&O: Vital Signs Date Time Temp Pulse Resp B/P (MAP) Pulse Ox O2 Delivery O2 Flow Rate FiO2 09/21/19 10:27 97.4 98 20 98/32 (54) 99 Nasal Cannula 2.0 97.4 Physical Exam Physical Exam: General: Alert, Oriented X3, Cooperative, No acute distress Heart: Regular rate, Normal S1 Lungs: Clear, Other Abdomen: Normal bowel sounds Extremities: No clubbing, No cyanosis left upper extremity graft appears to be patent. No erythema or edema or signs of infection. General: Alert, No acute distress Heart: Regular rate Lungs: Clear, Other Abdomen: Soft Extremities: No edema Labs Labs: All labs, images, and reports were reviewed by me personally Laboratory Tests Test 09/20/19 15:23 09/20/19 16:25 09/20/19 17:41 09/20/19 21:09 Glucose (Fingerstick) 221 mg/dL (70-99) 223 mg/dL (70-99) 118 mg/dL (70-99) Stool Occult Blood Negative (NEG) Test 09/21/19 07:19 09/21/19 09:18 09/21/19 10:55 Glucose (Fingerstick) 84 mg/dL (70-99) 82 mg/dL (70-99) 78 mg/dL (70-99) Review of Systems Review of Systems: CONSTITUIONAL: Denies weight loss, fever and chills. HEENT: Denies changes in vision and hearing. RESPIRATORY: Denies SOB and cough. CV: Denies palpitations and CP. GI: Denies abdominal pain, nausea, vomiting and diarrhea. : Denies dysuria and urinary frequency. MSK: Denies myalgia and joint pain. SKIN: Denies rash and pruritus. NEUROLOGICAL: Denies headache and syncope. PSYCHIATRIC: Denies recent changes in mood. Denies anxiety and depression. Assessment and Plan Assessmemt and Plan Problems Medical Problems: (1) Elevated troponin Status: Acute (2) Hypoglycemia Status: Acute (3) Lactic acidosis Status: Acute Comment Review of Relevant I have reviewed the following items caroline (where applicable) has been applied. Medications: Current Medications Medications (Trade) Dose Ordered Sig/Chinmay Route PRN Reason Start Time Stop Time Status Last Admin Dose Admin Darbepoetin Jeremy (ARANESP for DIALYSIS PTS) 60 mcg WEEKLYHS SQ 09/20/19 21:00 09/20/19 22:10 Amino Acids/ Glycerin/ Electrolytes 1,000 ml @ 80 mls/hr [id number] IV 09/20/19 16:30 09/21/19 05:20 Justicifation of Admission Dx: Justifications for Admission: Justification of Admission Dx: Yes Chronic Renal Failure: Renail Failure DIVYA LINDER MD Sep 21, 2019 13:29
[2019-09-21] MEDS: FOLIC/VIT B COMP W-C (RENAL) TABLET. PO SCH (13:33)
[2019-09-21] MEDS: ATORVASTATIN CALCIUM 40 MG TABLET. PO SCH (13:33)
[2019-09-21] MEDS: BENZONATATE 100 MG CAPSULE. PO SCH ×2 (13:33→22:00)
[2019-09-21] MEDS: LATANOPROST 0.005% OPHTH SOLUTION 2.5ML BOTTLE. OU SCH (21:59)
[2019-09-21] MEDS: MONTELUKAST SODIUM 10 MG TABLET. PO SCH (22:00)
[2019-09-22 02:42] VITALS: BP 82/48
[2019-09-22] MEDS: DEXTROSE 50% 25 GM / 50ML DISP.SYRIN. IV PRN (05:35)
[2019-09-22] MEDS: AMINO AC 3%/ELECTROLYTE/GLYCER 1,000 ML IV SCH (05:42)
--- NOTE | 2019-09-22 06:14 | NUR ---
bs 6o gave 1/2 amp d50 due to pt will not eat. rechecked it is 86. lcrn
[2019-09-22 07:00] VITALS: BP 89/37
[2019-09-22] MEDS ORDERED: IV NORMAL SALINE 1000ML BAG 1,000 ML IV PRN ×2 (07:21)
[2019-09-22] MEDS: ALBUTEROL SULFATE 2.5 MG/3 ML NEBU. NEB SCH (07:29)
[2019-09-22] MEDS: BUDESONIDE 0.5 MG/2 ML NEBU. NEB SCH (07:29)
[2019-09-22] MEDS ORDERED: diphenhydrAMINE 50 MG/ML VIAL IV PRN ×2 (07:30)
[2019-09-22] MEDS ORDERED: ALBUMIN HUMAN 25% 200 ML IV ONE (07:30)
[2019-09-22] MEDS ORDERED: DIALYSIS PATIENT. MC PRN (07:30)
[2019-09-22] MEDS: SEVELAMER CARBONATE 800 MG TABLET. PO SCH (08:00)
[2019-09-22 08:36] VITALS: BP 89/37
[2019-09-22] MEDS: ATORVASTATIN CALCIUM 40 MG TABLET. PO SCH (08:36)
[2019-09-22] MEDS: BENZONATATE 100 MG CAPSULE. PO SCH (08:36)
[2019-09-22] MEDS: METOPROLOL SUCC 24HR ER 25 MG TAB.ER.24H. PO SCH (08:36)
[2019-09-22] MEDS: FOLIC/VIT B COMP W-C (RENAL) TABLET. PO SCH (08:36)
[2019-09-22] MEDS: LIDOCAINE (700MG/PATCH) PATCH. TP SCH (08:37)
[2019-09-22 09:16] LABS: CALCIUM 9.4 mg/dL (8.5-10.1); CREATININE 7.3 mg/dL (0.6-1.0); GFR 6.8; POTASSIUM 4.8 mmol/L (3.5-5.1)
--- NOTE | 2019-09-22 09:36 | PDOC ---
G I PROGRESS NOTE Reason for Follow-up N/V Subjective Still nauseated Physical Exam Lungs decreased BS CV S1 S2 ABD +BS, soft, nontender Review of Relevant I have reviewed the following items caroline (where applicable) has been applied. Labs Laboratory Tests Test 09/20/19 10:14 09/20/19 13:01 09/20/19 15:23 09/20/19 16:25 Glucose (Fingerstick) 92 mg/dL (70-99) 162 mg/dL (70-99) 221 mg/dL (70-99) Stool Occult Blood Negative (NEG) Clostridium difficile Toxin (PCR) Negative (NEGATIVE) Test 09/20/19 17:41 09/20/19 21:09 09/21/19 07:19 09/21/19 09:18 Glucose (Fingerstick) 223 mg/dL (70-99) 118 mg/dL (70-99) 84 mg/dL (70-99) 82 mg/dL (70-99) Test 09/21/19 10:55 09/21/19 13:27 09/21/19 15:25 09/21/19 17:10 Glucose (Fingerstick) 78 mg/dL (70-99) 79 mg/dL (70-99) 81 mg/dL (70-99) 79 mg/dL (70-99) Test 09/21/19 20:53 09/21/19 23:20 09/22/19 02:42 09/22/19 05:31 Glucose (Fingerstick) 73 mg/dL (70-99) 86 mg/dL (70-99) 84 mg/dL (70-99) 60 mg/dL (70-99) Test 09/22/19 06:16 09/22/19 08:20 Glucose (Fingerstick) 86 mg/dL (70-99) Sodium Level 131 mmol/L (136-145) Potassium Level 4.8 mmol/L (3.5-5.1) Chloride Level 93 mmol/L (98-107) Carbon Dioxide Level 16 mmol/L (21-32) Anion Gap 22 (6-14) Blood Urea Nitrogen 54 mg/dL (7-20) Creatinine 7.3 mg/dL (0.6-1.0) Estimated GFR (Cockcroft-Gault) 6.8 Glucose Level 61 mg/dL (70-99) Calcium Level 9.4 mg/dL (8.5-10.1) Laboratory Tests Test 09/21/19 10:55 09/21/19 13:27 09/21/19 15:25 09/21/19 17:10 Glucose (Fingerstick) 78 mg/dL (70-99) 79 mg/dL (70-99) 81 mg/dL (70-99) 79 mg/dL (70-99) Test 09/21/19 20:53 09/21/19 23:20 09/22/19 02:42 09/22/19 05:31 Glucose (Fingerstick) 73 mg/dL (70-99) 86 mg/dL (70-99) 84 mg/dL (70-99) 60 mg/dL (70-99) Test 09/22/19 06:16 09/22/19 08:20 Glucose (Fingerstick) 86 mg/dL (70-99) Sodium Level 131 mmol/L (136-145) Potassium Level 4.8 mmol/L (3.5-5.1) Chloride Level 93 mmol/L (98-107) Carbon Dioxide Level 16 mmol/L (21-32) Anion Gap 22 (6-14) Blood Urea Nitrogen 54 mg/dL (-20) Creatinine 7.3 mg/dL (0.6-1.0) Estimated GFR (Cockcroft-Gault) 6.8 Glucose Level 61 mg/dL (70-99) Calcium Level 9.4 mg/dL (8.5-10.1) Medications Current Medications Dextrose (Dextrose 50%-Water Syringe) 25 gm 1X ONCE IV Last administered on 09/18/19at 01:37; Start 09/18/19 at 01:30; Stop 09/18/19 at 01:41; Status DC Insulin Human Lispro (HumaLOG) 0-5 UNITS TIDWMEALS SQ ; Start 09/18/19 at 08:00; Stop 09/18/19 at 23:06; Status DC Dextrose (Dextrose 50%-Water Syringe) 12.5 gm PRN Q15MIN PRN IV SEE COMMENTS Last administered on 09/22/19at 05:35; Start 09/18/19 at 01:45 Ondansetron HCl (Zofran) 4 mg PRN Q8HRS PRN IV NAUSEA/VOMITING Last administered on 09/19/19at 00:03; Start 09/18/19 at 01:45; Stop 09/19/19 at 01:44; Status DC Aspirin (Jeanette Aspirin) 325 mg 1X ONCE PO Last administered on 09/18/19at 03:47; Start 09/18/19 at 03:15; Stop 09/18/19 at 03:16; Status DC Dextrose 500 ml @ 75 mls/hr 1X ONCE IV ; Start 09/18/19 at 03:45; Stop 09/18/19 at 03:52; Status DC Dextrose 1,000 ml @ 75 mls/hr 1X ONCE IV Last administered on 09/18/19at 03:55; Start 09/18/19 at 04:00; Stop 09/18/19 at 17:19; Status DC Pharmacy Consult (C.diff Med Screen By Rx) 1 each 1X ONCE MC ; Start 09/18/19 at 09:00; Stop 09/18/19 at 09:01; Status DC Amiodarone HCl (Cordarone) 200 mg DAILY PO Last administered on 09/20/19at 16:56; Start 09/18/19 at 12:00 Atorvastatin Calcium (Lipitor) 40 mg DAILY PO Last administered on 09/21/19at 13:33; Start 09/18/19 at 12:00 Clopidogrel Bisulfate (Plavix) 75 mg DAILY PO Last administered on 09/20/19at 13:06; Start 09/18/19 at 12:00; Stop 09/21/19 at 15:37; Status DC Vitamin B Complex/ Vitamin C (Jacquie-Debbi) 1 tab DAILY PO Last administered on 09/21/19at 13:33; Start 09/18/19 at 12:00 Latanoprost (Xalatan) 1 drop QHS OU Last administered on 09/21/19at 21:59; Start 09/18/19 at 21:00 Lidocaine (Lidoderm) 1 patch DAILY TP Last administered on 09/18/19at 12:50; Start 09/18/19 at 12:00 Metoprolol Succinate (Toprol Xl) 25 mg DAILY PO Last administered on 09/20/19at 13:07; Start 09/18/19 at 12:00 Montelukast Sodium (Singulair) 10 mg HS PO Last administered on 09/21/19at 22:00; Start 09/18/19 at 21:00 Sevelamer Carbonate (Renvela) 800 mg TIDWMEALS PO Last administered on 09/21/19at 13:35; Start 09/18/19 at 12:00 Warfarin Sodium (Coumadin) 2 mg DAILY16 PO Last administered on 09/18/19at 16:27; Start 09/18/19 at 16:00; Stop 09/19/19 at 12:33; Status DC Albuterol Sulfate (Ventolin Neb Soln) 2.5 mg RTQID NEB Last administered on 09/22/19at 07:29; Start 09/18/19 at 12:00 Non-Formulary Medication (Letrozole (Femara)) 1 tab DAILY PO ; Start 09/19/19 at 09:00; Stop 09/19/19 at 07:38; Status DC Albuterol Sulfate (Ventolin Neb Soln) 2.5 mg PRN Q6HRS PRN NEB SHORTNESS OF BREATH; Start 09/18/19 at 11:15 Budesonide (Pulmicort) 0.5 mg RTBID NEB Last administered on 09/22/19at 07:29; Start 09/18/19 at 12:00 Dextrose 1,000 ml @ 115 mls/hr Q8H42M IV Last administered on 09/19/19at 00:17; Start 09/18/19 at 13:00; Stop 09/19/19 at 16:48; Status DC Warfarin Sodium (Coumadin Per Physician) 1 each PRN DAILY PRN MC SEE COMMENTS; Start 09/18/19 at 13:45; Stop 09/19/19 at 12:33; Status DC Benzonatate (Tessalon Perle) 100 mg BID PO Last administered on 09/21/19at 22:00; Start 09/19/19 at 04:00 Ondansetron HCl (Zofran) 4 mg PRN Q8HRS PRN IVP NAUSEA/VOMITING Last administered on 09/19/19at 19:07; Start 09/19/19 at 04:00; Stop 09/19/19 at 23:51; Status DC Dextrose 150 ml/ Dextrose 650 ml @ 65 mls/hr Q10H IV Last administered on 09/19/19at 07:42; Start 09/19/19 at 08:00; Stop 09/19/19 at 17:24; Status DC Apixaban (Eliquis) 5 mg BID PO Last administered on 09/20/19at 22:09; Start 09/19/19 at 21:00; Stop 09/21/19 at 15:37; Status DC Info (Anti-Coagulation Monitoring By Pharmacy) 1 each PRN DAILY PRN MC SEE COMMENTS Last administered on 09/21/19at 10:28; Start 09/19/19 at 12:45 Dextrose 340 ml/ Dextrose 1,140 ml @ 65 mls/hr [id number] IV ; Start 09/19/19 at 17:30; Stop 09/19/19 at 17:32; Status DC Dextrose 400 ml/ Dextrose 1,150 ml @ 65 mls/hr [id number] IV ; Start 09/19/19 at 18:00; Stop 09/19/19 at 17:38; Status DC Dextrose 400 ml/ Dextrose 1,000 ml @ 70 mls/hr [id number] IV Last administered on 09/20/19at 08:16; Start 09/19/19 at 18:00; Stop 09/20/19 at 16:28; Status DC Ondansetron HCl (Zofran) 4 mg PRN Q4HRS PRN IVP NAUSEA/VOMITING 1ST CHOICE Last administered on 09/20/19at 16:42; Start 09/20/19 at 00:00 Prochlorperazine Edisylate (Compazine) 10 mg PRN Q6HRS PRN IV NAUSEA/VOMITING 2ND CHOICE; Start 09/20/19 at 00:00 Sodium Chloride 1,000 ml @ 1,000 mls/hr Q1H PRN IV hypotension; Start 09/20/19 at 08:31; Stop 09/20/19 at 14:30; Status DC Sodium Chloride 1,000 ml @ 400 mls/hr Q2H30M PRN IV PATENCY; Start 09/20/19 at 08:31; Stop 09/20/19 at 20:30; Status DC Info (PHARMACY MONITORING -- do not chart) 1 each PRN DAILY PRN MC SEE COMMENT S; Start 09/20/19 at 08:45; Status Cancel Info (PHARMACY MONITORING -- do not chart) 1 each PRN DAILY PRN MC SEE COMMENTS; Start 09/20/19 at 08:45; Status UNV Info (PHARMACY MONITORING -- do not chart) 1 each PRN DAILY PRN MC SEE COMMENTS; Start 09/20/19 at 11:00; Stop 09/22/19 at 09:12; Status DC Darbepoetin Jeremy (ARANESP for DIALYSIS PTS) 60 mcg [id number] SQ Last administere d on 09/20/19at 22:10; Start 09/20/19 at 21:00 Amino Acids/ Glycerin/ Electrolytes 1,000 ml @ 80 mls/hr [id number] IV Last administered on 09/22/19at 05:42; Start 09/20/19 at 16:30 Apixaban (Eliquis) 5 mg BID PO ; Start 09/24/19 at 09:00 Clopidogrel Bisulfate (Plavix) 75 mg DAILY PO ; Start 09/24/19 at 09:00 Sodium Chloride 1,000 ml @ 1,000 mls/hr Q1H PRN IV hypotension; Start 09/22/19 at 07:21; Stop 09/22/19 at 13:20 Albumin Human 200 ml @ 200 mls/hr 1X ONCE IV Last administered on 09/22/19at 08:39; Start 09/22/19 at 07:30; Stop 09/22/19 at 08:29; Status DC Diphenhydramine HCl (Benadryl) 25 mg 1X PRN PRN IV ITCHING; Start 09/22/19 at 07:30; Stop 09/23/19 at 07:29 Diphenhydramine HCl (Benadryl) 25 mg 1X PRN PRN IV ITCHING; Start 09/22/19 at 07:30; Stop 09/23/19 at 07:29 Sodium Chloride 1,000 ml @ 400 mls/hr Q2H30M PRN IV PATENCY; Start 09/22/19 at 07:21; Stop 09/22/19 at 19:20 Info (PHARMACY MONITORING -- do not chart) 1 each PRN DAILY PRN MC SEE COMMENTS; Start 09/22/19 at 07:30 Active Scripts Active Doxycycline Hyclate 100 Mg Tablet 100 Mg PO BID 7 Days Amox Tr-K Clv 500-125 Mg Tab (Amoxicillin/Potassium Clav) 1 Each Tablet 1 Tab PO BID 7 Days Reported Femara (Letrozole) 2.5 Mg Tablet 1 Tab PO DAILY 30 Days Lidocaine PATCH (Lidocaine) 1 Each Adh..patch 1 Each TP DAILY REMOVE AFTER 12 HOURS Nesina (Alogliptin Benzoate) 12.5 Mg Tablet 1 Tab PO DAILY 30 Days Metoprolol Succinate ( Xl ) (Metoprolol Succinate) 25 Mg Tab.er.24h 25 Tab PO DAILY Montelukast Sodium Tablet (Montelukast Sodium) 10 Mg Tablet 10 Mg PO HS Warfarin Sodium 2 Mg Tablet 2 Mg PO DAILY Amiodarone Hcl 200 Mg Tablet 1 Tab PO DAILY Renvela (Sevelamer Carbonate) 800 Mg Tablet 800 Mg PO TIDWMEALS Clopidogrel (Clopidogrel Bisulfate) 75 Mg Tablet 75 Mg PO DAILY Latanoprost 2.5 Ml Drops 1 Drop EACHEYE QHS Symbicort 160-4.5 Mcg Inhaler (Budesonide/Formoterol Fumarate) 10.2 Gm Hfa.aer.ad 2 Puff IH BID Glipizide 5 Mg Tablet 2.5 Mg PO DAILY Jacquie-Debbi Tablet (Folic Acid/Vitamin B Comp W-C) 0.8 Mg Tablet 0.8 Mg PO DAILY Atorvastatin Calcium 40 Mg Tablet 1 Tab PO DAILY Vitals/I & O Vital Sign - Last 24 Hours 09/21/19 09/21/19 09/21/19 09/21/19 10:27 13:36 14:54 15:47 Temp 97.4 98.0 97.4 98.0 Pulse 98 97 96 Resp 20 20 B/P (MAP) 98/32 (54) 92/43 (59) 93/72 (79) Pulse Ox 99 90 O2 Delivery Nasal Cannula Nasal Cannula Nasal Cannula O2 Flow Rate 2.0 2.0 2.0 09/21/19 09/21/19 09/21/19 09/21/19 18:24 18:27 18:35 18:38 Pulse 96 96 92 95 B/P (MAP) 89/42 (58) 86/34 (51) 71/38 (49) 78/37 (51) 09/21/19 09/21/19 09/21/19 09/21/19 18:43 19:15 19:48 20:00 Temp 97.6 97.6 Pulse 95 100 95 Resp 16 B/P (MAP) 82/37 (52) 88/43 (58) 90/42 (58) Pulse Ox 100 O2 Delivery Nasal Cannula Nasal Cannula O2 Flow Rate 2.0 2.0 09/21/19 09/21/19 09/22/19 09/22/19 20:14 22:35 02:42 07:00 Temp 97.4 97.7 97.4 97.4 97.7 97.4 Pulse 95 106 100 Resp 16 16 16 B/P (MAP) 81/38 (52) 82/48 (59) 89/37 (54) Pulse Ox 99 94 100 100 O2 Delivery Nasal Cannula Nasal Cannula Nasal Cannula Nasal Cannula O2 Flow Rate 2.0 2.0 2.5 2.5 09/22/19 09/22/19 07:29 08:36 Pulse 100 B/P (MAP) 89/37 Pulse Ox 100 O2 Delivery Nasal Cannula O2 Flow Rate 2.0 Intake and Output 09/21/19 09/21/19 09/22/19 15:00 23:00 07:00 Intake Total 240 ml Balance 240 ml Problem List Problems Medical Problems: (1) Elevated troponin Status: Acute (2) Hypoglycemia Status: Acute (3) Lactic acidosis Status: Acute Assessment N/V- with priro GES at [facility] per patient that was abnormal, started on reglan with improvement, will resume low dose and reassess Justicifation of Admission Dx: Justifications for Admission: Justification of Admission Dx: Yes Chronic Renal Failure: Renail Failure AZALIA MAY MD Sep 22, 2019 09:36
--- NOTE | 2019-09-22 10:05 | PDOC ---
Renal-Progress Notes Subjective Notes Notes STILL SOB History of Present Illness Hx of present illness STABLE Vitals Vitals Vital Signs Date Time Temp Pulse Resp B/P (MAP) Pulse Ox O2 Delivery O2 Flow Rate FiO2 09/22/19 08:36 100 89/37 09/22/19 07:29 100 Nasal Cannula 2.0 09/22/19 07:00 97.4 16 97.4 Weight Weight [ ] I.O. Intake and Output Intake and Output 09/22/19 07:00 Intake Total 240 ml Balance 240 ml Intake Oral 240 ml # Bowel Movements 8 Labs Labs Laboratory Tests Test 09/21/19 10:55 09/21/19 13:27 09/21/19 15:25 09/21/19 17:10 Glucose (Fingerstick) 78 mg/dL (70-99) 79 mg/dL (70-99) 81 mg/dL (70-99) 79 mg/dL (70-99) Test 09/21/19 20:53 09/21/19 23:20 09/22/19 02:42 09/22/19 05:31 Glucose (Fingerstick) 73 mg/dL (70-99) 86 mg/dL (70-99) 84 mg/dL (70-99) 60 mg/dL (70-99) Test 09/22/19 06:16 09/22/19 08:20 09/22/19 09:55 Glucose (Fingerstick) 86 mg/dL (70-99) 76 mg/dL (70-99) Sodium Level 131 mmol/L (136-145) Potassium Level 4.8 mmol/L (3.5-5.1) Chloride Level 93 mmol/L (98-107) Carbon Dioxide Level 16 mmol/L (21-32) Anion Gap 22 (6-14) Blood Urea Nitrogen 54 mg/dL (7-20) Creatinine 7.3 mg/dL (0.6-1.0) Estimated GFR (Cockcroft-Gault) 6.8 Glucose Level 61 mg/dL (70-99) Calcium Level 9.4 mg/dL (8.5-10.1) Review of Systems Constitutional: yes: weakness, alert, oriented Ears/Nose/Throat: Yes: no symptom reported Eyes: Yes: no symptom reported Pulmonary: Yes cough dry Cardiovascular: Yes no symptom reported Gastrointestional: Yes: constipation Genitourinary: Yes: no symptom reported Musculoskeletal: Yes: muscle stiffness Psychiatric/Neurological: Yes: no symptom reported Physical Exam General Appearance: no apparent distress Skin: warm Respiratory: decreased breath sounds Heart: S1S2 Abdomen: soft, bowel sounds present Genitourinary: bladder flat Extremities: pulses present Neurology: alert, oriented Musculoskeletal: Osteoarthritis, Other Assessment Assessment IMP ESRD HYPOTENSION ANEMIA LOW BG DM II R PLEURAL EFFUSIOIN PLAN PPN STARTED ARANESP HD TODAY UF TOLERATED THORACENTESIS ELVIS NÚÑEZ MD Sep 22, 2019 10:05
[2019-09-22] MEDS ORDERED: SODIUM BICARB ADULT 8.4% 50 MEQ/50 ML DISP.SYRIN. ONE (11:00)
[2019-09-22] MEDS ORDERED: CALCIUM CHLORIDE 1,000 MG/10 ML DISP.SYRIN ONE (11:00)
[2019-09-22] MEDS ORDERED: DEXTROSE 50% 25 GM / 50ML DISP.SYRIN. IV ONE (11:00)
[2019-09-22] MEDS ORDERED: AMIODARONE 150 MG/3 ML VIAL ONE (11:00)
[2019-09-22] MEDS ORDERED: EPINEPHrine SYRINGE 1 MG/10 ML SYRINGE ONE ×2 (11:00)
[2019-09-22] MEDS ORDERED: DOPamine 400MG/250ML PREMIX 400 MG/250 ML BAG IV ONE (11:00)
[2019-09-22] MEDS ORDERED: ATROPINE 0.5 MG/5 ML DISP.SYRINGE. ONE (11:00)
[2019-09-22] MEDS ORDERED: METOCLOPRAMIDE 5 MG TABLET. PO SCH (11:30)
--- NOTE | 2019-09-22 12:27 | PN ---
DATE: 09/22/2019 ADDENDUM Catrachito vizcarra was called while the patient was on dialysis. Apparently, she was bradycardic and had very low blood pressure. The patient became less responsive. The catrachito vizcarra team arrived. I also arrived at the scene as well. The patient was being bagged and CPR was initiated. The patient had full ACLS protocol with multiple rounds of CPR. She also was noted to be in V-fib as well and was shocked 4 times. She was intubated by the ER physician. The patient has been struggling with her cardiac status since her TAVR. She has history of cardiomyopathy with an EF of 20%. The patient continued to have a very prolonged CPR for 30+ minutes. Full ACLS protocol was used. From cardiology service, Dr. Zacarias was present as well as the hospitalist Dr. Lamb was present as well. After 30+ minutes of a full ACLS protocol, catrachito vizcarra was called off. I have personally spoken to the patient's daughter and informed her about the patient's condition and then she arrived immediately and at that time, the patient was already pronounced . The patient's niece was also informed. cct time spent 30 min CARLI FALL MD DR: MIKEY/prabha JOB#: [id number] / [id number] RAFAEL
--- NOTE | 2019-09-22 12:56 | PDOC ---
[employer] PROGRESS NOTE Chief Complaint Chief Complaint Cardiogenic shock Severe bradycardia SEVERE RECURRENT HYPOGLYCEMIA SECONDARY TO GLYPIZIDE Improving lung aeration with cardiomegaly and findings of pulmonary vascular congestion and smaller right pleural effusion. RECENT Supratherapeutic INR improved RECENT D/C at 2.0 Loculated right pleural effusion pending thoracentesis ESRD Normocytic anemia Enlarged left thyroid Hypoglycemia, recurrent DM2 - with hypoglycemia - stop sulfonylureas and insulin DVT/PE in August 2019 ON WARFARIN minimal troponin i elevation likely type ii demand ischemia morbid obesity echo in 2019 //PA pressure was estimated at 39 mmHg. c/w pulm hypertension Loculated pleural effusion on the right and rounded atelectasis at the right lower lobe. 09/18 Severe malnutrition plan Appreciate GI recommendations, MRCP and ultrasound was unremarkable except for hepatomegaly. NO insulin and STOP glypizide iv d25% at 50cc /hr insulin level Appreciate nephrology recommendations, start EPO today consult cardiology Appreciate pulmonary recommendations, possible thoracentesis once Eliquis has been held for 2 days will defer to cardiology glucose checks q 2 hrs x 3 , then q 4 hrs and ac, hs serum insulin level Eliquis for DVT prophylaxis ADA diet Full code Discussed with RN and SW Dispo pending thoracentesis Justicifation of Admission Dx: Justicifation of Admission Dx: Justifications for Admission: Justification of Admission Dx: Yes Chronic Renal Failure: Renail Failure History of Present Illness History of Present Illness recent Hospital Course: 64 yo F w/ PMHx ESRD on HD, DVT with PE, DM2, HTN, HLD, anemia, carotid stenosis, atrial fibrillation who presents to ED after she went to hemodialysis and suddenly felt cold and felt like her sugar and blood pressure had dropped. She denied any fevers or chills or sweats, but felt weak. She was brought to [facility] and found to have a white count of 12.2 and at dialysis her glucose was 22 given D50. She was afebrile, but her blood pressure was in 80s/50s and glucose was 161. She underwent a chest x-ray, which showed a loculated small to moderate right pleural effusion, right mid basilar consolidations, atelectasis or pneumonia, 09/22/2019 Patient seen this morning on dialysis. Patient's blood pressure was considered fairly low. A CODE BLUE was called while patient was on dialysis. She was bradycardic and had low blood pressures at the time and the patient became less responsive. At this point no pulse was palpated and the patient was unresponsive and CPR was started. Patient had multiple rounds of CPR with epinephrine, amiodarone, sodium bicarb, calcium gluconate injections. Patient had 4 rounds of shocks for V. fib. Patient was also intubated by the ED physician. Patient is known to have severe cardiomyopathy with an ejection fraction of 20%. CODE BLUE was run for at least [address] Zacarias and Dr Casey was also present. CODE BLUE was called off at this time. Patient's daughter was informed of the the patient's critical condition. She arrived around the time patient was already pronounced . 09/21/2019 Patient seen and examined this a.m. No acute events overnight. Patient has been tolerating her HD sessions. No complaints of chest pain or shortness of breath. 09/20/2019 Patient seen and examined during dialysis. No hypoglycemic events overnight. Patient is tolerating diet. Vitals/I&O Vitals/I&O: Vital Signs Date Time Temp Pulse Resp B/P (MAP) Pulse Ox O2 Delivery O2 Flow Rate FiO2 09/22/19 08:36 100 89/37 09/22/19 07:29 100 Nasal Cannula 2.0 09/22/19 07:00 97.4 16 97.4 I & O 09/21/19 09/21/19 09/22/19 15:00 23:00 07:00 Intake Total 240 ml Balance 240 ml Physical Exam Physical Exam: General: Unresponsive and intubated Heart: Regular rate, Normal S1 Lungs: Decreased breath sounds bilaterally Abdomen: Normal bowel sounds Extremities: No clubbing, No cyanosis left upper extremity graft appears to be patent. No erythema or edema or signs of infection. General: Alert, No acute distress Heart: Regular rate Lungs: Clear, Other Abdomen: Soft Extremities: No edema Labs Labs: Laboratory Tests Test 09/21/19 13:27 09/21/19 15:25 09/21/19 17:10 09/21/19 20:53 Glucose (Fingerstick) 79 mg/dL (70-99) 81 mg/dL (70-99) 79 mg/dL (70-99) 73 mg/dL (70-99) Test 09/21/19 23:20 09/22/19 02:42 09/22/19 05:31 09/22/19 06:16 Glucose (Fingerstick) 86 mg/dL (70-99) 84 mg/dL (70-99) 60 mg/dL (70-99) 86 mg/dL (70-99) Test 09/22/19 08:20 09/22/19 09:55 09/22/19 10:25 Sodium Level 131 mmol/L (136-145) Potassium Level 4.8 mmol/L (3.5-5.1) Chloride Level 93 mmol/L (98-107) Carbon Dioxide Level 16 mmol/L (21-32) Anion Gap 22 (6-14) Blood Urea Nitrogen 54 mg/dL (-20) Creatinine 7.3 mg/dL (0.6-1.0) Estimated GFR (Cockcroft-Gault) 6.8 Glucose Level 61 mg/dL (70-99) Calcium Level 9.4 mg/dL (8.5-10.1) Glucose (Fingerstick) 76 mg/dL (70-99) 73 mg/dL (70-99) Assessment and Plan Assessmemt and Plan Problems Medical Problems: (1) Elevated troponin Status: Acute (2) Hypoglycemia Status: Acute (3) Lactic acidosis Status: Acute Comment Review of Relevant I have reviewed the following items caroline (where applicable) has been applied. Medications: Current Medications Medications (Trade) Dose Ordered Sig/Chinmay Route PRN Reason Start Time Stop Time Status Last Admin Dose Admin Albumin Human 200 ml @ 200 mls/hr 1X ONCE IV 09/22/19 07:30 09/22/19 08:29 DC 09/22/19 08:39 Justicifation of Admission Dx: Justifications for Admission: Justification of Admission Dx: Yes Chronic Renal Failure: Renail Failure DIVYA LINDER MD Sep 22, 2019 12:55
--- NOTE | 2019-09-22 15:29 | NUR ---
Outside Salesperson overheard Code Blue in dialysis over speaker. Outside Salesperson went to dialysis, story writer observed patient receiving CPR, story writer rotated with other RNS for chest compressions during CPR. Time of called by MD Adonis at 1107. Patients daughter was notified by MD Carmela and was present at the time of passing. Patient was moved to room [id number] where family could gather in private with patient. Paperwork was signed by daughter for release of body.Outside Salesperson and DL bagged body and taken down to [facility].
--- NOTE | 2019-09-22 18:25 | PDOC3 ---
[facility]-Dis[facility] Summary Date of Admission: Date of Admission: Sep 18, 2019 Date of Discharge: Date of Discharge: Sep 22, 2019 Admission Diagnosis: Admitting Diagnosis: SEVERE RECURRENT HYPOGLYCEMIA Improving lung aeration with cardiomegaly and findings of pulmonary vascular congestion and smaller right pleural effusion. RECENT Supratherapeutic INR improved RECENT D/C at 1.9 Loculated right pleural effusion s/p thoracentesis ESRD Enlarged left thyroid Hypoglycemia, recurrent DM2 - with hypoglycemia - stop sulfonylureas and insulin DVT/PE in August 2019 ON WARFARIN minimal troponin i elevation likely type ii demand ischemia morbid obesity echo in 2018 //PA pressure was estimated at 39 mmHg. c/w pulm hypertension Discharge Diagnosis: Discharge Diagnosis: Cardiogenic shock Severe bradycardia SEVERE RECURRENT HYPOGLYCEMIA SECONDARY TO GLYPIZIDE Improving lung aeration with cardiomegaly and findings of pulmonary vascular congestion and smaller right pleural effusion. RECENT Supratherapeutic INR improved RECENT D/C at 2.0 Loculated right pleural effusion pending thoracentesis ESRD Normocytic anemia Enlarged left thyroid Hypoglycemia, recurrent DM2 - with hypoglycemia - stop sulfonylureas and insulin DVT/PE in August 2019 ON WARFARIN minimal troponin i elevation likely type ii demand ischemia morbid obesity echo in 2018 //PA pressure was estimated at 39 mmHg. c/w pulm hypertension Loculated pleural effusion on the right and rounded atelectasis at the right lower lobe. 09/18 Severe malnutrition Consults: Consults: Nephrology Pulmonology Cardiology Gastroenterology Procedures: Procedures: hemodialysis intubation Hospital Course: Hospital Course: This is a summary for: CAUSE OF : cardiogenic shock 64 yo F w/ PMHx ESRD on HD, DVT with PE, DM2, HTN, HLD, anemia, carotid stenosis, atrial fibrillation who presents to ED after she went to hemodialysis and suddenly felt cold and felt like her sugar and blood pressure had dropped. She denied any fevers or chills or sweats, but felt weak. She was brought to [facility] and found to have a white count of 12.2 and at dialysis her glucose was 22 given D50. She was afebrile, but her blood pressure was in 80s/50s and glucose was 161. She underwent a chest x-ray, which showed a loculated small to moderate right pleural effusion, right mid basilar consolidations, atelectasis or pneumonia, Patient was admitted for further care and evaluated by multiple specialists. Patient continued with her schedule HD sessions and her respiratory status was clinically improving. She was scheduled for a thoracentesis for her Right pleural effusion on 09/23/19, so her Eliquis was held at least 48 hrs prior. Her hospital course was complicated by cardiogenic shock and bradycardia during hemodialysis and a CODE blue was initiated. Please see progress note for details. Patient on 09/22/19 at 1106 am from events listed above Disposition: Disposition/Orders: Medications: Home Meds Active Scripts Doxycycline Hyclate (DOXYCYCLINE HYCLATE) 100 Mg Tablet, 100 MG PO BID for pneumonia for 7 Days, #14 TAB Prov:DIVYA LINDER MD 09/09/19 Amoxicillin/Potassium Clav (AMOX TR-K CLV 500-125 MG TAB) 1 Each Tablet, 1 TAB PO BID for pneumonia for 7 Days, #14 TAB Prov:DIVYA LINDER MD 09/09/19 Reported Medications Letrozole (FEMARA) 2.5 Mg Tablet, 1 TAB PO DAILY for hormone for 30 Days, #30 TAB 0 Refills 09/04/19 Lidocaine (Lidocaine PATCH ) 1 Each Adh..patch, 1 EACH TP DAILY for FOR LOCAL PAIN, PATCH REMOVE AFTER 12 HOURS 09/04/19 Alogliptin Benzoate (NESINA) 12.5 Mg Tablet, 1 TAB PO DAILY for diabetes for 30 Days, #30 TAB 0 Refills 09/04/19 Metoprolol Succinate (METOPROLOL SUCCINATE ( XL )) 25 Mg Tab.er.24h, 25 TAB PO DAILY for htn, #30 TAB 5 Refills 09/04/19 Montelukast Sodium (MONTELUKAST SODIUM TABLET ) 10 Mg Tablet, 10 MG PO HS for FOR ASTHMA, TAB 0 Refills 09/04/19 Warfarin Sodium (WARFARIN SODIUM) 2 Mg Tablet, 2 MG PO DAILY for blood clots, #30 TAB 09/04/19 Amiodarone Hcl (AMIODARONE HCL) 200 Mg Tablet, 1 TAB PO DAILY for htn, #90 TAB 1 Refill 09/04/19 Sevelamer Carbonate (RENVELA) 800 Mg Tablet, 800 MG PO TIDWMEALS for , TAB 02/03/19 Clopidogrel Bisulfate (CLOPIDOGREL) 75 Mg Tablet, 75 MG PO DAILY for TO PREVENT BLOOD CLOTS, #30 TAB 0 Refills 02/03/19 Latanoprost (LATANOPROST) 2.5 Ml Drops, 1 DROP EACHEYE QHS for eyes, #7.5 ML 3 Refills 10/13/18 Budesonide/Formoterol Fumarate (SYMBICORT 160-4.5 MCG INHALER) 10.2 Gm Hfa.aer.ad, 2 PUFF IH BID for breathing, #10.6 GM 3 Refills 10/13/18 Glipizide (GLIPIZIDE) 5 Mg Tablet, 2.5 MG PO DAILY for DIABETES, TAB 01/14/18 Folic Acid/Vitamin B Comp W-C ([place]-SARAH TABLET) 0.8 Mg Tablet, 0.8 MG PO DAILY 05/26/15 Atorvastatin Calcium (ATORVASTATIN CALCIUM) 40 Mg Tablet, 1 TAB PO DAILY, #30 TAB 5 Refills 07/29/14 Scheduled Alogliptin Benzoate (Nesina), 1 TAB PO DAILY, (Reported) Amiodarone Hcl (Amiodarone Hcl), 1 TAB PO DAILY, (Reported) Amoxicillin/Potassium Clav (Amox Tr-K Clv 500-125 Mg Tab), 1 TAB PO BID Atorvastatin Calcium (Atorvastatin Calcium), 1 TAB PO DAILY, (Reported) Budesonide/Formoterol Fumarate (Symbicort 160-4.5 Mcg Inhaler), 2 PUFF IH BID, (Reported) Clopidogrel Bisulfate (Clopidogrel), 75 MG PO DAILY, (Reported) Doxycycline Hyclate (Doxycycline Hyclate), 100 MG PO BID Folic Acid/Vitamin B Comp W-C ([place]-Sarah Tablet), 0.8 MG PO DAILY, (Reported) Glipizide (Glipizide), 2.5 MG PO DAILY, (Reported) Latanoprost (Latanoprost), 1 DROP EACHEYE QHS, (Reported) Letrozole (Femara), 1 TAB PO DAILY, (Reported) Lidocaine (Lidocaine PATCH ), 1 EACH TP DAILY, (Reported) Metoprolol Succinate (Metoprolol Succinate ( Xl )), 25 TAB PO DAILY, (Reported) Montelukast Sodium (Montelukast Sodium Tablet ), 10 MG PO HS, (Reported) Sevelamer Carbonate (Renvela), 800 MG PO TIDWMEALS, (Reported) Warfarin Sodium (Warfarin Sodium), 2 MG PO DAILY, (Reported) Total Time: Total Time: Total time spent is 50 minutes Justicifation of Admission Dx: Justifications for Admission: Justification of Admission Dx: Yes Chronic Renal Failure: Renail Failure DIVYA LINDER MD Sep 22, 2019 18:25
[2019-09-24] MEDS ORDERED: CLOPIDOGREL BISULFATE 75 MG TABLET PO SCH (09:00)
[2019-09-24] MEDS ORDERED: APIXABAN 5 MG TABLET. PO SCH (09:00)
== END 2019-09-22 11:06 | disposition expired | DRG 637 ==
LOC: ER 01:21 → 2 SOUTH 03:59
PROVIDERS: ADMIT Family Medicine; ATTEND Family Medicine
PROC: 5A1D70Z Performance of Urinary Filtration, Intermittent, Less than 6 Hours Per Day (ICD-10-PCS; 2019-09-20)
PROC: 5A1D70Z Performance of Urinary Filtration, Intermittent, Less than 6 Hours Per Day (ICD-10-PCS; principal; 2019-09-22)
PROC: 5A12012 Performance of Cardiac Output, Single, Manual (ICD-10-PCS; 2019-09-22)
DX: E11.649 Type 2 diabetes mellitus with hypoglycemia without coma (principal); E43 Unspecified severe protein-calorie malnutrition; I50.22 Chronic systolic (congestive) heart failure; I13.2 Hypertensive heart and chronic kidney disease with heart failure and with stage 5 chronic kidney disease, or end stage renal disease; I31.3 Pericardial effusion (noninflammatory); I42.9 Cardiomyopathy, unspecified; J96.11 Chronic respiratory failure with hypoxia; J98.11 Atelectasis; R57.0 Cardiogenic shock; N18.6 End stage renal disease; D64.9 Anemia, unspecified; E11.22 Type 2 diabetes mellitus with diabetic chronic kidney disease; E66.01 Morbid (severe) obesity due to excess calories; E78.00 Pure hypercholesterolemia, unspecified; E78.5 Hyperlipidemia, unspecified; I25.10 Atherosclerotic heart disease of native coronary artery without angina pectoris; I27.20 Pulmonary hypertension, unspecified; I35.0 Nonrheumatic aortic (valve) stenosis; I48.0 Paroxysmal atrial fibrillation; Z68.38 Body mass index [BMI] 38.0-38.9, adult; Z79.01 Long term (current) use of anticoagulants; Z82.49 Family history of ischemic heart disease and other diseases of the circulatory system; Z86.711 Personal history of pulmonary embolism; Z87.11 Personal history of peptic ulcer disease; Z87.891 Personal history of nicotine dependence; Z95.2 Presence of prosthetic heart valve; Z95.5 Presence of coronary angioplasty implant and graft; Z99.2 Dependence on renal dialysis; M19.90 Unspecified osteoarthritis, unspecified site; Z91.013 Allergy to seafood; Z91.048 Other nonmedicinal substance allergy status; Z79.4 Long term (current) use of insulin; T50.995A Adverse effect of other drugs, medicaments and biological substances, initial encounter; Y92.89 Other specified places as the place of occurrence of the external cause; I95.9 Hypotension, unspecified
CPT/HCPCS: 36415; 71045; 74176; 76700; 78226; 80048; 80053; 82274; 82553; 82962; 83525; 83605; 83735; 84484; 85025; 85610; 87493; 93005; 94640; 94760; 96374; 96376; 99291; A9537; J0171; J0282; J0461; J0882; J1265; J1815; J2405; J3490; J7060; P9046; G0378; J7613; J7626